=== PATIENT | male | born 1945 | race Caucasian/White ===

== ENCOUNTER 2022-07-11 11:45 | Outpatient (REF) | payer BC, SELFPAY ==
[2022-07-11 12:13] LABS: MANUAL DIFF FLAG NO
[2022-07-11 12:54] LABS: Basophils Percent Auto 0.5 % (0-2); Eosinophils Absolute Auto 0.1 X10*3/uL (0.0-0.4); Eosinophils Percent Auto 0.8 % (0-4); Hematocrit 41.7 % (42.0-52.0); Hemoglobin 13.7 g/dl (14.0-18.0); Imm Gran Abs Auto 0.01 X10*3/uL (0.00-0.03); Imm Gran Pct Auto 0.2 % (0.0-0.4); Lymphocytes Absolute Auto 1.1 X10*3/uL (1.2-4.9); Lymphocytes Percent Auto 18.7 % (20-40); Mean Corpuscular HGB Conc 32.9 g/dl (31.0-36.0); Mean Corpuscular Hemoglobin 33.3 pg (27.0-33.0); Mean Corpuscular Volume 101.5 fL (80.0-98.0); Mean Platelet Volume 10.4 fL (9.4-12.4); Monocytes Absolute Auto 0.4 X10*3/uL (0.1-1.2); Monocytes Percent Auto 6.7 % (2-11); Neutrophils Absolute Auto 4.4 x10*3/uL (2.0-8.3); Neutrophils Percent Auto 73.1 % (45-73); Platelet Count 150 X10*3/uL (160-400); Red Blood Count 4.11 X10*6/uL (4.60-5.80); Red Cell Distribution Width 12.5 % (11.0-16.0)
[2022-07-11 13:16] LABS: Alanine Aminotransferase 20 U/L (0-40); Albumin Level 4.9 g/dL (3.5-5.0); Alkaline Phosphatase 95 U/L (39-117); Anion Gap 16 (12-20); Aspartate Amino Transferase 23 U/L (5-37); Bilirubin Total 1.1 mg/dL (0.0-1.0); Blood Urea Nitrogen 18 mg/dL (9-16); C Reactive Protein 0.12 mg/dL (< or = 0.50); Calcium 9.6 mg/dL (8.4-10.2); Carbon Dioxide 26 mmol/L (22-29); Chloride 104 mmol/L (96-108); Estimated Glomerular Filt Rate 52; Glucose Random 100 mg/dL (60-115); Potassium 4.2 mmol/L (3.3-5.1); Rheumatoid Factor < 15.0 IU/mL (<15.0); Sodium 142 mmol/L (135-145); Total Protein 7.7 g/dL (6.5-8.0)
[2022-07-11 14:23] LABS: Erythrocyte Sedimentation Rate 16 MM/HR (0-15)
[2022-07-12 07:08] LABS: HBS Num1 0.34 mIU/mL (0-7.99); HBsAGNum1 0.25 S/CO (0.00-0.99); Hepatitis A Antibody IgM 0.27 Index (0-0.79); Hepatitis B Core Antibody Nonreactive (Nonreactive); Hepatitis B Surface Antigen Negative (Negative); ~HepC Num1 0.25 S/CO (0.00-0.79); ~Hepatitis A Antibody IgM Nonreactive (Nonreactive); ~Hepatitis B Surface Antibody NONREACTIVE (Nonreactive); ~Hepatitis C Antibody Nonreactive (Nonreactive)
[2022-07-12 11:52] LABS: Complement C3 124 mg/dL (82-185)
[2022-07-15 13:53] LABS: Vitamin D 25-OH, D2 <4 ng/mL; Vitamin D 25-OH, D3 30 ng/mL; Vitamin D 25-OH, Total 30 ng/mL (30-100)
[2022-07-15 14:06] LABS: Anti Nuclear Antibody Screen NEGATIVE (NEGATIVE)
[2022-07-15 15:56] LABS: Cyclic Citrullinated Peptide <16 UNITS
[2022-07-15 23:41] LABS: TS Negative Control Passed; TS Panel A 1; TS Panel B 0; TS Positive Control Passed; TSpotTB Negative (Negative)
[2022-07-24 11:56] LABS: Cryoglobulin, Qual NONE DETECTED ((NDT))
== END 2022-07-11 11:46 | disposition home or self-care (01) ==
LOC: HO.10HDL 11:45
PROVIDERS: Visit Provider Student in an Organized Health Care Education/Training Program
DX: Z13.21 Encounter for screening for nutritional disorder (principal); Z11.59 Encounter for screening for other viral diseases; Z11.7 Encounter for testing for latent tuberculosis infection; M06.041 Rheumatoid arthritis without rheumatoid factor, right hand; M06.042 Rheumatoid arthritis without rheumatoid factor, left hand
CPT/HCPCS: 36415; 80053; 82306; 82595; 85025; 85652; 86038; 86039; 86140; 86160; 86200; 86431; 86481; 86704; 86706; 86709; 86803; 87340

== ENCOUNTER 2022-08-16 14:12 | Outpatient (REF) | payer MEDICARE, SELFPAY ==
[2022-08-16 14:24] LABS: MANUAL DIFF FLAG NO
[2022-08-16 14:44] LABS: Basophils Percent Auto 0.2 % (0-2); Eosinophils Percent Auto 0.4 % (0-4); Hematocrit 40.4 % (42.0-52.0); Hemoglobin 13.3 g/dl (14.0-18.0); Imm Gran Abs Auto 0.03 X10*3/uL (0.00-0.03); Imm Gran Pct Auto 0.4 % (0.0-0.4); Lymphocytes Absolute Auto 1.4 X10*3/uL (1.2-4.9); Lymphocytes Percent Auto 16.9 % (20-40); Mean Corpuscular HGB Conc 32.9 g/dl (31.0-36.0); Mean Corpuscular Hemoglobin 32.8 pg (27.0-33.0); Mean Corpuscular Volume 99.5 fL (80.0-98.0); Mean Platelet Volume 10.8 fL (9.4-12.4); Monocytes Absolute Auto 0.9 X10*3/uL (0.1-1.2); Monocytes Percent Auto 10.8 % (2-11); Neutrophils Percent Auto 71.3 % (45-73); Platelet Count 145 X10*3/uL (160-400); Red Blood Count 4.06 X10*6/uL (4.60-5.80); Red Cell Distribution Width 12.3 % (11.0-16.0); White Blood Count 8.3 X10*3/uL (4.8-10.8)
[2022-08-16 15:15] LABS: Alanine Aminotransferase 11 U/L (0-40); Albumin Level 4.5 g/dL (3.5-5.0); Alkaline Phosphatase 91 U/L (39-117); Anion Gap 16 (12-20); Aspartate Amino Transferase 16 U/L (5-37); Bilirubin Total 0.9 mg/dL (0.0-1.0); Blood Urea Nitrogen 22 mg/dL (9-16); C Reactive Protein 1.86 mg/dL (< or = 0.50); Calcium 9.4 mg/dL (8.4-10.2); Carbon Dioxide 26 mmol/L (22-29); Chloride 105 mmol/L (96-108); Estimated Glomerular Filt Rate 48; Glucose Random 103 mg/dL (60-115); Potassium 3.9 mmol/L (3.3-5.1); Sodium 143 mmol/L (135-145)
[2022-08-16 15:29] LABS: Uric Acid 5.8 mg/dL (3.4-7.0)
[2022-08-16 16:42] LABS: Erythrocyte Sedimentation Rate 23 MM/HR (0-15)
== END 2022-08-16 14:13 | disposition home or self-care (01) ==
LOC: HO.LAB 14:12
PROVIDERS: PCP Physician Assistant Medical; Visit Provider Student in an Organized Health Care Education/Training Program
DX: M10.9 Gout, unspecified (principal); M25.432 Effusion, left wrist
CPT/HCPCS: 20605; 36415; 80053; 84550; 85025; 85652; 86140; 99212

== ENCOUNTER → 2022-09-05 09:40 | Outpatient (BNVA) | payer MEDICARE, SELFPAY | PROVIDERS: PCP Physician Assistant Medical; Referring Provider Physician Assistant Medical; Visit Provider Student in an Organized Health Care Education/Training Program | DX: Z13.820 Encounter for screening for osteoporosis (principal); M67.921 Unspecified disorder of synovium and tendon, right upper arm; M06.041 Rheumatoid arthritis without rheumatoid factor, right hand; M06.042 Rheumatoid arthritis without rheumatoid factor, left hand; M19.041 Primary osteoarthritis, right hand; M19.042 Primary osteoarthritis, left hand; M10.9 Gout, unspecified; G20 Parkinson's disease; Z79.899 Other long term (current) drug therapy | CPT/HCPCS: 99212 ==

== ENCOUNTER 2022-10-10 13:00 | Outpatient (REF) | payer MEDICARE, SELFPAY ==
--- NOTE | ~2022-10-10 | MM_ITS ---
EXAMINATION: BONE DENSITOMETRY CLINICAL INDICATION: Screening for osteoporosis. COMPARISON: This is the patient's baseline examination. TECHNIQUE: Using a [employer] DXA System (software version: 13.1) manufactured by [employer], dual-energy x-ray absorptiometry was performed of the lumbar spine and left hip. The images are of good technical quality. Summary results are attached. FINDINGS: AP SPINE L1-L2 (excluding L3 and L4): The data of L1-L4 has been changed to exclude the L3 and L4 vertebral bodies, because degenerative sclerosis at these levels may cause overestimation of lumbar spine density. BMD 1.152 g/cm2, Z-score 0.5, T-score -0.4, normal. LEFT FEMUR, NECK: BMD 0.729 g/cm2, Z-score -1.0, T-score -2.6, osteoporosis. LEFT FEMUR, TOTAL: BMD 0.667 g/cm2, Z-score -1.8, T-score -3.0, osteoporosis. IDENTIFIED RISK FACTORS: Height loss, history of fracture (adult), glucocorticoids (chronic), osteoporosis, recurrent falls, rheumatoid arthritis. HISTORY OF FRACTURE: Wrist. MEDICATIONS: None listed. MM/XR DEXA axial skeleton IMPRESSION: 1. DIAGNOSIS: Severe osteoporosis based on the lowest T-score value of -3.0 in the total femur and history of wrist fracture applying World Health Organization criteria. 2. 10-YEAR FRACTURE RISK PREDICTION, FRAX: According to the guidelines, FRAX calculation should only be performed on patients in the osteopenia bone density category. Therefore, FRAX was not performed on this patient. 3. Treatment Recommendations: NOF guidelines recommend consideration for treatment in postmenopausal women and men age 50 and older presenting with the following: -A hip or vertebral (clinical or morphometric) fracture. -T-score less than or equal to -2.5 at the femoral neck or spine after appropriate evaluation to exclude secondary causes. -Low bone mass at the hip or spine and a 10-year fracture probability by FRAX of greater than or equal to 3% for hip fracture or greater than or equal to 20% for major osteoporotic fracture based on the [place] adapted WHO algorithm. 4. Other Recommendations: All treatment decisions require clinical judgment and consideration of individual patient factors, including patient preferences, comorbidities, previous drug use, risk factors not captured in the FRAX model (e.g. frailty, falls, vitamin D deficiency, increased bone turnover, interval significant decline in bone density) and possible under or overestimation of fracture risk by FRAX. Additional medical evaluation for secondary cause of low bone mineral density may be appropriate. FUTURE SCAN RECOMMENDATION: People with diagnosed cases of osteoporosis or at high risk for fracture should have regular bone mineral density tests. For patients eligible for Medicare, routine testing is allowed once every 2 years. The testing frequency can be increased to one year for patients who have rapidly progressing disease, those who are receiving or discontinuing medical therapy to restore bone mass, or have additional risk factors.
--- NOTE | ~2022-10-10 | US_ITS ---
EXAMINATION: ULTRASOUND EXTREMITY NONVASCULAR CLINICAL INFORMATION: Evaluate biceps tear COMPARISON: None TECHNIQUE: Grayscale and color imaging of the right upper arm in the area of palpable abnormality FINDINGS: There is a complex cystic partially solid partially cystic lesion with minimal peripheral vascularity seen in the upper arm. This measures 3.2 x 0.9 x 1.2 cm. This probably represents biceps tear with retraction. Differential would include hematoma, abscess or myositis, and less likely a neoplastic process. Follow-up MRI recommended. US/US extremity nonvascular IMPRESSION: 3.2 x 0.9 x 1.2 cm complex cystic mass probably representing biceps tear. Confirmation with MRI recommended. Findings will be communicated by the [place] work flow coke handling supervisor.
== END 2022-10-10 13:01 | disposition home or self-care (01) ==
LOC: HO.US 13:00
PROVIDERS: Visit Provider Student in an Organized Health Care Education/Training Program
DX: Z13.820 Encounter for screening for osteoporosis (principal); M67.921 Unspecified disorder of synovium and tendon, right upper arm; M81.0 Age-related osteoporosis without current pathological fracture
CPT/HCPCS: 76882; 77080

== ENCOUNTER 2022-11-22 08:42 | Outpatient (REF) | payer MEDICARE, SELFPAY ==
[2022-11-22 09:09] LABS: MANUAL DIFF FLAG NO
[2022-11-22 09:27] LABS: Basophils Percent Auto 0.5 % (0-2); Eosinophils Absolute Auto 0.1 X10*3/uL (0.0-0.4); Eosinophils Percent Auto 1.2 % (0-4); Hematocrit 38.6 % (42.0-52.0); Hemoglobin 12.4 g/dl (14.0-18.0); Imm Gran Abs Auto 0.01 X10*3/uL (0.00-0.03); Imm Gran Pct Auto 0.2 % (0.0-0.4); Lymphocytes Percent Auto 25.3 % (20-40); Mean Corpuscular HGB Conc 32.1 g/dl (31.0-36.0); Mean Corpuscular Hemoglobin 32.4 pg (27.0-33.0); Mean Corpuscular Volume 100.8 fL (80.0-98.0); Mean Platelet Volume 10.3 fL (9.4-12.4); Monocytes Absolute Auto 0.3 X10*3/uL (0.1-1.2); Monocytes Percent Auto 7.6 % (2-11); Neutrophils Absolute Auto 2.7 x10*3/uL (2.0-8.3); Neutrophils Percent Auto 65.2 % (45-73); Platelet Count 128 X10*3/uL (160-400); Red Blood Count 3.83 X10*6/uL (4.60-5.80); Red Cell Distribution Width 13.4 % (11.0-16.0); White Blood Count 4.1 X10*3/uL (4.8-10.8)
[2022-11-22 10:01] LABS: Alanine Aminotransferase 15 U/L (0-40); Albumin Level 4.1 g/dL (3.5-5.0); Alkaline Phosphatase 83 U/L (39-117); Anion Gap 15 (12-20); Aspartate Amino Transferase 20 U/L (5-37); Bilirubin Total 1.3 mg/dL (0.0-1.0); Blood Urea Nitrogen 19 mg/dL (9-16); C Reactive Protein 0.13 mg/dL (< or = 0.50); Calcium 9.2 mg/dL (8.4-10.2); Carbon Dioxide 27 mmol/L (22-29); Chloride 106 mmol/L (96-108); Estimated Glomerular Filt Rate 46; Glucose Random 99 mg/dL (60-115); Potassium 4.1 mmol/L (3.3-5.1); Sodium 144 mmol/L (135-145); Total Protein 6.2 g/dL (6.5-8.0); Uric Acid 5.7 mg/dL (3.4-7.0)
[2022-11-22 10:06] LABS: Erythrocyte Sedimentation Rate 14 MM/HR (0-15)
[2022-11-26 13:44] LABS: Procollagen Type I Intact N 49 mcg/L (see note)
== END 2022-11-22 08:43 | disposition home or self-care (01) ==
LOC: HO.LAB 08:42
PROVIDERS: PCP Physician Assistant Medical; Visit Provider Student in an Organized Health Care Education/Training Program
DX: M10.9 Gout, unspecified (principal)
CPT/HCPCS: 36415; 80053; 83519; 84550; 85025; 85652; 86140

== ENCOUNTER → 2022-11-29 09:43 | Outpatient (BNVA) | payer MEDICARE, SELFPAY | PROVIDERS: PCP Physician Assistant Medical; Visit Provider Student in an Organized Health Care Education/Training Program | DX: G20 Parkinson's disease (principal); M06.00 Rheumatoid arthritis without rheumatoid factor, unspecified site; M06.041 Rheumatoid arthritis without rheumatoid factor, right hand; M19.041 Primary osteoarthritis, right hand; M06.042 Rheumatoid arthritis without rheumatoid factor, left hand; M19.042 Primary osteoarthritis, left hand; M67.921 Unspecified disorder of synovium and tendon, right upper arm; M81.0 Age-related osteoporosis without current pathological fracture; M1A.0320 Idiopathic chronic gout, left wrist, without tophus (tophi); N18.9 Chronic kidney disease, unspecified; Z79.899 Other long term (current) drug therapy | CPT/HCPCS: 99212 ==

== ENCOUNTER 2023-02-27 08:33 | Outpatient (REF) | payer MEDICARE, SELFPAY ==
[2023-02-27 08:59] LABS: MANUAL DIFF FLAG NO
[2023-02-27 09:24] LABS: Basophils Percent Auto 0.5 % (0-2); Eosinophils Absolute Auto 0.1 X10*3/uL (0.0-0.4); Hematocrit 35.3 % (42.0-52.0); Hemoglobin 11.5 g/dl (14.0-18.0); Imm Gran Abs Auto 0.01 X10*3/uL (0.00-0.03); Imm Gran Pct Auto 0.2 % (0.0-0.4); Lymphocytes Absolute Auto 1.1 X10*3/uL (1.2-4.9); Lymphocytes Percent Auto 27.1 % (20-40); Mean Corpuscular HGB Conc 32.6 g/dl (31.0-36.0); Mean Corpuscular Hemoglobin 34.4 pg (27.0-33.0); Mean Corpuscular Volume 105.7 fL (80.0-98.0); Mean Platelet Volume 11.2 fL (9.4-12.4); Monocytes Absolute Auto 0.4 X10*3/uL (0.1-1.2); Monocytes Percent Auto 8.9 % (2-11); Neutrophils Absolute Auto 2.5 x10*3/uL (2.0-8.3); Neutrophils Percent Auto 61.3 % (45-73); Platelet Count 123 X10*3/uL (160-400); Red Blood Count 3.34 X10*6/uL (4.60-5.80); Red Cell Distribution Width 14.8 % (11.0-16.0); White Blood Count 4.1 X10*3/uL (4.8-10.8)
[2023-02-27 10:23] LABS: Alanine Aminotransferase 42 U/L (0-40); Albumin Level 4.2 g/dL (3.5-5.0); Alkaline Phosphatase 75 U/L (39-117); Anion Gap 10 (12-20); Aspartate Amino Transferase 38 U/L (5-37); Bilirubin Total 1.5 mg/dL (0.0-1.0); Blood Urea Nitrogen 18 mg/dL (9-16); C Reactive Protein 0.16 mg/dL (< or = 0.50); Calcium 9.1 mg/dL (8.4-10.2); Carbon Dioxide 27 mmol/L (22-29); Chloride 109 mmol/L (96-108); Estimated Glomerular Filt Rate 51; Glucose Random 101 mg/dL (60-115); Potassium 4.2 mmol/L (3.3-5.1); Sodium 142 mmol/L (135-145); Total Protein 6.3 g/dL (6.5-8.0); Uric Acid 6.2 mg/dL (3.4-7.0)
[2023-02-27 10:29] LABS: Erythrocyte Sedimentation Rate 16 MM/HR (0-15)
== END 2023-02-27 08:34 | disposition home or self-care (01) ==
LOC: HO.LAB 08:33
PROVIDERS: PCP Physician Assistant Medical; Visit Provider Student in an Organized Health Care Education/Training Program
DX: M10.9 Gout, unspecified (principal); Z79.899 Other long term (current) drug therapy
CPT/HCPCS: 36415; 80053; 84550; 85025; 85652; 86140

== ENCOUNTER → 2023-03-05 11:15 | Outpatient (BNVA) | payer MEDICARE, SELFPAY | PROVIDERS: PCP Physician Assistant Medical; Visit Provider Student in an Organized Health Care Education/Training Program | DX: M06.041 Rheumatoid arthritis without rheumatoid factor, right hand (principal); M06.042 Rheumatoid arthritis without rheumatoid factor, left hand; M67.921 Unspecified disorder of synovium and tendon, right upper arm; M81.0 Age-related osteoporosis without current pathological fracture; M10.9 Gout, unspecified; Z79.899 Other long term (current) drug therapy | CPT/HCPCS: 99212 ==

== ENCOUNTER 2023-06-09 09:08 | Outpatient (REF) | payer MEDICARE, SELFPAY ==
[2023-06-09 09:30] LABS: MANUAL DIFF FLAG NO
[2023-06-09 09:58] LABS: Basophils Percent Auto 0.5 % (0-2); Eosinophils Absolute Auto 0.1 X10*3/uL (0.0-0.4); Eosinophils Percent Auto 1.6 % (0-4); Hematocrit 37.3 % (42.0-52.0); Hemoglobin 12.4 g/dl (14.0-18.0); Imm Gran Abs Auto 0.02 X10*3/uL (0.00-0.03); Imm Gran Pct Auto 0.4 % (0.0-0.4); Lymphocytes Absolute Auto 1.1 X10*3/uL (1.2-4.9); Mean Corpuscular HGB Conc 33.2 g/dl (31.0-36.0); Mean Corpuscular Hemoglobin 33.6 pg (27.0-33.0); Mean Corpuscular Volume 101.1 fL (80.0-98.0); Mean Platelet Volume 10.2 fL (9.4-12.4); Monocytes Absolute Auto 0.5 X10*3/uL (0.1-1.2); Monocytes Percent Auto 9.2 % (2-11); Neutrophils Absolute Auto 3.9 x10*3/uL (2.0-8.3); Neutrophils Percent Auto 68.3 % (45-73); Platelet Count 163 X10*3/uL (160-400); Red Blood Count 3.69 X10*6/uL (4.60-5.80); Red Cell Distribution Width 12.9 % (11.0-16.0); White Blood Count 5.7 X10*3/uL (4.8-10.8)
[2023-06-09 10:25] LABS: Alanine Aminotransferase 29 U/L (0-40); Albumin Level 4.1 g/dL (3.5-5.0); Alkaline Phosphatase 73 U/L (39-117); Anion Gap 11 (12-20); Aspartate Amino Transferase 25 U/L (5-37); Bilirubin Total 0.9 mg/dL (0.0-1.0); Blood Urea Nitrogen 19 mg/dL (9-16); C Reactive Protein 0.11 mg/dL (< or = 0.50); Calcium 9.3 mg/dL (8.4-10.2); Carbon Dioxide 27 mmol/L (22-29); Chloride 109 mmol/L (96-108); Estimated Glomerular Filt Rate 48; Glucose Random 99 mg/dL (60-115); Sodium 143 mmol/L (135-145); Total Protein 6.7 g/dL (6.5-8.0); Uric Acid 5.4 mg/dL (3.4-7.0)
[2023-06-09 10:45] LABS: Erythrocyte Sedimentation Rate 16 MM/HR (0-15)
[2023-06-11 13:13] LABS: Prot Elec - Alpha1 0.3 g/dL (0.2-0.3); Prot Elec - Alpha2 0.8 g/dL (0.5-0.9); Prot Elec - Beta 1 0.4 g/dL (0.4-0.6); Prot Elec - Beta 2 0.3 g/dL (0.2-0.5); Prot Elec - Gamma 0.7 g/dL (0.8-1.7); Prot Elec - Total Protein 6.5 g/dL (6.1-8.1)
[2023-06-12 11:48] LABS: IgA 182 mg/dL (70-320); IgG 903 mg/dL (600-1540); IgM 59 mg/dL (50-300)
== END 2023-06-09 09:09 | disposition home or self-care (01) ==
LOC: HO.LAB 09:08
PROVIDERS: PCP Physician Assistant Medical; Visit Provider Student in an Organized Health Care Education/Training Program
DX: M10.9 Gout, unspecified (principal); M06.041 Rheumatoid arthritis without rheumatoid factor, right hand; M06.042 Rheumatoid arthritis without rheumatoid factor, left hand; Z79.899 Other long term (current) drug therapy
CPT/HCPCS: 36415; 80053; 82784; 84165; 84550; 85025; 85652; 86140; 86334

== ENCOUNTER 2023-08-07 08:32 | Outpatient (REF) | payer MEDICARE, SELFPAY | END 2023-08-07 08:33 | disposition home or self-care (01) | LOC: HO.LAB 08:32 | PROVIDERS: PCP Physician Assistant Medical; Visit Provider Student in an Organized Health Care Education/Training Program | DX: M81.0 Age-related osteoporosis without current pathological fracture (principal) | CPT/HCPCS: 83519 ==

== ENCOUNTER 2023-08-12 09:38 | Outpatient (AMB) | payer MEDICARE, SELFPAY ==
[2023-08-12 09:53] VITALS: BP 142/76; PULSE 59; TEMP 36.5; O2SAT 98; BMI 22.3
--- NOTE | 2023-08-12 09:53 | MHC.OFFVIS ---
Intake Vital Signs 08/12/23 09:53 Height 5 ft 10 in Weight 155 lb 3.287 oz BMI 22.3 BP 142/76 H Blood Pressure Location Rt brachial Position Sitting Pulse 59 Pulse Source Pulse Oximeter Temp 97.7 F Temp Source Skin Pulse Oximetry (%) 98 Intake Visit Reasons: RA/OA Intake Note: Pt presents today for follow up and test results. Continues on mtx 5tabs weekly and folic acid 3mg. S/p right hand trigger finger release 05/28/23 [facility] Neurodiagnostic Technician Required: No Accompanied by: Self / Same As Patient Allergies sertraline Allergy (Intermediate, Verified 08/12/23 09:57) nausea,dizziness acetaminophen [From Percocet] Allergy (Unknown, Verified 08/12/23 09:57) unknown amoxicillin Allergy (Unknown, Verified 08/12/23 09:57) unknown erythromycin base Allergy (Unknown, Verified 08/12/23 09:57) unknown minocycline Allergy (Unknown, Verified 08/12/23 09:57) unknown oxycodone [From Percocet] Allergy (Unknown, Verified 08/12/23 09:57) unknown polymyxinb tmp Allergy (Intermediate, Uncoded 08/12/23 09:57) swelling, rash Medication List - Last Reconciled 08/12/23 by Analy Enamorado MD alendronate 70 mg PO QWEEK amlodipine 10 mg PO DAILY ammonium lactate 12% appl topical atorvastatin 20 mg PO DAILY bupropion HCl 100 mg PO BEDTIME bupropion HCl 200 mg PO DAILY carbidopa-levodopa 25-100 mg 1 tab PO .6 x a day diclofenac sodium 1% 4 grams topical QID doxycycline hyclate 100 mg PO BID entacapone 200 mg PO .6 x a day with carbi folic acid 3 mg (3 x 1 mg) PO DAILY lisinopril 40 mg PO DAILY lorazepam 0.5 mg PO BEDTIME PRN meloxicam 7.5 mg PO DAILY methotrexate sodium 12.5 mg (5 x 2.5 mg) PO QWEEK metronidazole 0.75% 1 appl topical DAILY mirtazapine 30 mg PO BEDTIME omeprazole 20 mg PO DAILY ropinirole 2 mg PO BID tamsulosin 0.4 mg PO BEDTIME trazodone 50 mg PO BEDTIME PRN HPI HPI Comments History of Present Illness Details 77-year-old male with RA returns for follow-up. On methotrexate 12.5 mg weekly and folic acid 3 mg daily. He states that he had trigger finger release surgery for left hand back in May 2023. Surgery was uneventful. States that his hand surgeon would like to do surgery for his left thumb OA but patient postponed it as his just got diagnosed with DVT. She has an appointment with Hematology. She is on Eliquis now. Patient states that continues to have pain in his hands. States that his left ankle is starting to turn in with walking. States that over the last few months he feels that when he walks he has to stop to catch his breath. Initial history: This is a 76-year-old male with a complex past medical history including rheumatoid arthritis RF negative, CCP is positive used to see Dr. Mishra who presents for evaluation of rheumatoid arthritis. The condition was diagnosed in 2017 and since then he has been on methotrexate 6 tabs weekly plus folic acid with better control of his RA symptoms. He has not been on methotrexate since November of 2021 as he could not get a prescription. He continues to have pain in both thumbs as well as his fingers. 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 He receives bilateral thumb intra-articular steroid injections every 3 months which gave him about 1 month relief, last injection was 2 months ago. He denies any other joint pain or swelling. About 2 years ago he developed right foot drop, also developed tremors and was diagnosed with Parkinson's by Neurology. For his footdrop he went to physical therapy and was prescribed a brace. The brace helps. But his footdrop has not improved. [facility] Medical History Footdrop BPH (benign prostatic hyperplasia) Hypertension Diverticulosis Thrombocytopenia Acid reflux Basal cell carcinoma Cholelithiasis Nephrolithiasis PTSD (post-traumatic stress disorder) Parkinsons Osteoarthritis of hands, bilateral Chronic sinus bradycardia Restless leg Seronegative rheumatoid arthritis Dyslipidemia Surgical History S/P trigger finger release Hx of endoscopy S/P TURP Hx of tonsillectomy Hx of lithotripsy Hx of colonoscopy Family History Mother Arthritis Social History Household Members: Spouse Housing: House Do you presently have visiting nurse or other home services: No Alcohol intake: never Patient Tobacco Use Status: Never used Tobacco e-Cigarette/Vaping Use: Never Used service: Yes Current occupational status: retired 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 Review of Systems Eyes Reports no additional complaints Card Reports dyspnea on exertion Resp Reports dyspnea on exertion Musc Reports arthralgias Physical Exam Vital Signs: Last Vital Signs Temp 97.7 F 08/12/23 09:53 Pulse 59 08/12/23 09:53 BP 142/76 H 08/12/23 09:53 Pulse Ox 98 08/12/23 09:53 BMI result Body Mass Index 22.3 Const General: cooperative, healthy appearing and comfortable Nutritional Appearance: average body habitus Orientation/consciousness: patient oriented x3 Limitations: ambulation with cane HEENT Head: Yes normocephalic and Yes atraumatic Mouth: Normal oral and palatal mucosa present Resp Effort & Inspection: normal respiratory effort and able to speak in complete sentences Auscultation: clear to auscultation bilaterally Cardio Heart sounds: Murmur heart sound present systolic Skin Other: Some areas of senile purpura Neuro Other: Right footdrop General: patient oriented x3 Extrem Other: Extensive osteoarthritic changes of both hands with bilateral squaring of CMC joint tender to palpation Extensive Heberden's and Carrie's nodes, tender to palpation Left ulnar styloid prominence and tenderness to palpation Right 2nd through 5th MCP joint tenderness Left 2nd and 3rd MCP tenderness Right 2nd and 3rd extensor tender tenderness Left 3rd extensor tender tenderness Right 2nd flexor tendon tenderness Bilateral fat atrophy at anatomical snuffbox Left 2nd through 5th MTP tenderness Right 3rd MTP tenderness Assessment & Plan Assessment & Plan (1) Rheumatoid arthritis involving both hands with negative rheumatoid factor: Comment: dx 2018 (low titer +CCP negative on repeat) Methotrexate started 2018 reduced from 15 to 12.5 mg 12/12 due to cytopenias & CKD Code(s): M06.041 - Rheumatoid arthritis without rheumatoid factor, right hand; M06.042 - Rheumatoid arthritis without rheumatoid factor, left hand Plan: 77-year-old male with rheumatoid arthritis, (RF negative, CCP low positive, -ve on repeat) who presents for follow-up. Patient continues to have multiple tender joints on methotrexate 12.5 mg weekly. Patient has a murmur on exam today. Will check a 2D echo. After 2D echo is completed, will discuss adding further DMARDs Continue methotrexate 12.5 mg weekly folic acid 3 mg daily Infectious screening hepatitis panel and T spot -ve 2021 Labs before next visit in 3 months (2) Methotrexate, intermediate, current use: Code(s): Z79.899 - Other superintendent container terminal (current) drug therapy Plan: Monitor safety labs (3) Biceps tendinopathy of right upper extremity: Code(s): M67.921 - Unspecified disorder of synovium and tendon, right upper arm Plan: Symptoms have resolved (4) Osteoporosis: Code(s): M81.0 - Age-related osteoporosis without current pathological fracture Qualifiers: Osteoporosis type: age-related Presence of current pathological fracture: without current pathological fracture Qualified Code(s): M81.0 - Age-related osteoporosis without current pathological fracture Plan: DEXA shows a T-score-3.0 total left femur. Patient has been getting intra-articular steroid injections for his hand osteoarthritis almost every 3 months for years. This might be a contributing factor. Continue alendronate 70 mg once weekly. Well tolerated. Repeat DEXA scan around 12/14 (5) Gout: Code(s): M10.9 - Gout, unspecified Qualifiers: Gout site: wrist Gout etiology: idiopathic Chronicity: chronic Laterality: unspecified laterality Presence of tophus: without tophus Qualified Code(s): M1A.0390 - Idiopathic chronic gout, unspecified wrist, without tophus (tophi) Plan: On 08/16/2022 patient presented with acute left wrist pain and swelling which rapidly responded to prednisone. ? He stated that 10 years ago he had similar pain affecting his right foot.? He also has history of urate kidney stones. I had attempted left wrist arthrocentesis, unfortunately it was a dry tap. Repeat uric acid level when not in a flare showed a normal uric acid level. This seems to be a pseudogout flare. Will continue to monitor patient clinically. If patient starts developing recurrent pseudogout flares. Will consider starting colchicine (6) Osteoarthritis of hands, bilateral: Code(s): M19.041 - Primary osteoarthritis, right hand; M19.042 - Primary osteoarthritis, left hand Qualifiers: Osteoarthritis type: primary Qualified Code(s): M19.041 - Primary osteoarthritis, right hand; M19.042 - Primary osteoarthritis, left hand Plan: Gets bilateral 1st CMC intra-articular steroid injections by Orthopedics every 3 months. (7) CKD (chronic kidney disease): Code(s): N18.9 - Chronic kidney disease, unspecified Qualifiers: Chronic kidney disease stage: stage 3 (moderate) Chronic kidney disease stage 3 subtype: stage 3b (GFR 30-44) Qualified Code(s): N18.32 - Chronic kidney disease, stage 3b Plan: Seems relatively stable. Follow-up with PCP (8) Immunization counseling: Code(s): Z71.85 - Encounter for immunization safety counseling Plan: Patient received TD and flu vaccines last week. Advised patient to hold methotrexate for 2 weeks. Advised patient to get the RSV, COVID booster and Pneumovax. Can all be done in the same day. Advised patient to hold methotrexate weeks after those vaccines (9) Murmur: Code(s): R01.1 - Cardiac murmur, unspecified Plan: Systolic murmur on exam. Patient states that for the last few months he has been short of breath with activity. Will check a 2D echo Plan I spent 46 minutes reviewing patient's chart, evaluating patient, ordering diagnostic workup, counseling patient and documenting in the chart Orders: Orders Comprehensive Met. Panel Today M06.041 - Rheumatoid arthritis without rheumatoid factor, right hand, M06.042 - Rheumatoid arthritis without rheumatoid factor, left hand C Reactive Protein Today M06.041 - Rheumatoid arthritis without rheumatoid factor, right hand, M06.042 - Rheumatoid arthritis without rheumatoid factor, left hand Erythrocyte Sedimentation Rate Today M06.041 - Rheumatoid arthritis without rheumatoid factor, right hand, M06.042 - Rheumatoid arthritis without rheumatoid factor, left hand Hepatitis A,B,C Profile Today Z11.59 - Encounter for screening for other viral diseases T Spot TB Today Z11.7 - Encounter for testing for latent tuberculosis infection CA echo transthoracic complete Today R01.1 - Cardiac murmur, unspecified Complete Blood Count Auto Diff Today M06.041 - Rheumatoid arthritis without rheumatoid factor, right hand, M06.042 - Rheumatoid arthritis without rheumatoid factor, left hand Coding Level of Care Code Est Pt Level 5 (00690) Diagnoses Rheumatoid arthritis involving both hands with negative rheumatoid factor M06.041; M06.042 Methotrexate, superintendent container terminal, current use Z79.899 Biceps tendinopathy of right upper extremity M67.921 Age-related osteoporosis without current pathological fracture M81.0 Osteoporosis type: age-related Presence of current pathological fracture: without current pathological fracture 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
== END 2023-08-12 10:28 | disposition home or self-care (01) ==
PROVIDERS: PCP Physician Assistant Medical; Visit Provider Student in an Organized Health Care Education/Training Program
DX: M06.041 Rheumatoid arthritis without rheumatoid factor, right hand (principal); M06.042 Rheumatoid arthritis without rheumatoid factor, left hand; Z79.899 Other long term (current) drug therapy; M67.921 Unspecified disorder of synovium and tendon, right upper arm; M81.0 Age-related osteoporosis without current pathological fracture; M1A.0390 Idiopathic chronic gout, unspecified wrist, without tophus (tophi); M19.041 Primary osteoarthritis, right hand; M19.042 Primary osteoarthritis, left hand; N18.32 Chronic kidney disease, stage 3b; Z71.85 Encounter for immunization safety counseling; R01.1 Cardiac murmur, unspecified
CPT/HCPCS: 99215

== ENCOUNTER → 2023-08-12 09:38 | Outpatient (BNVA) | payer MEDICARE, SELFPAY | PROVIDERS: PCP Physician Assistant Medical; Visit Provider Student in an Organized Health Care Education/Training Program | DX: M06.041 Rheumatoid arthritis without rheumatoid factor, right hand (principal); M06.042 Rheumatoid arthritis without rheumatoid factor, left hand; M81.0 Age-related osteoporosis without current pathological fracture; M67.921 Unspecified disorder of synovium and tendon, right upper arm; M1A.0390 Idiopathic chronic gout, unspecified wrist, without tophus (tophi); M19.041 Primary osteoarthritis, right hand; M19.042 Primary osteoarthritis, left hand; N18.32 Chronic kidney disease, stage 3b; R01.1 Cardiac murmur, unspecified; Z71.85 Encounter for immunization safety counseling; Z79.899 Other long term (current) drug therapy | CPT/HCPCS: 99212 ==

== ENCOUNTER 2023-08-12 10:44 | Outpatient (REF) | payer MEDICARE, SELFPAY ==
[2023-08-12 13:39] LABS: MANUAL DIFF FLAG NO
[2023-08-12 13:46] LABS: Basophils Percent Auto 0.4 % (0-2); Eosinophils Absolute Auto 0.1 X10*3/uL (0.0-0.4); Eosinophils Percent Auto 0.9 % (0-4); Hematocrit 38.9 % (42.0-52.0); Hemoglobin 12.8 g/dl (14.0-18.0); Imm Gran Abs Auto 0.01 X10*3/uL (0.00-0.03); Imm Gran Pct Auto 0.2 % (0.0-0.4); Lymphocytes Absolute Auto 1.1 X10*3/uL (1.2-4.9); Lymphocytes Percent Auto 20.9 % (20-40); Mean Corpuscular HGB Conc 32.9 g/dl (31.0-36.0); Mean Corpuscular Hemoglobin 33.7 pg (27.0-33.0); Mean Corpuscular Volume 102.4 fL (80.0-98.0); Mean Platelet Volume 10.7 fL (9.4-12.4); Monocytes Absolute Auto 0.5 X10*3/uL (0.1-1.2); Monocytes Percent Auto 8.5 % (2-11); Neutrophils Absolute Auto 3.7 x10*3/uL (2.0-8.3); Neutrophils Percent Auto 69.1 % (45-73); Platelet Count 155 X10*3/uL (160-400); Red Cell Distribution Width 12.9 % (11.0-16.0); White Blood Count 5.4 X10*3/uL (4.8-10.8)
[2023-08-12 14:09] LABS: Alanine Aminotransferase 18 U/L (0-40); Albumin Level 4.4 g/dL (3.5-5.0); Alkaline Phosphatase 83 U/L (39-117); Anion Gap 15 (12-20); Aspartate Amino Transferase 21 U/L (5-37); Bilirubin Total 0.9 mg/dL (0.0-1.0); Blood Urea Nitrogen 17 mg/dL (9-16); C Reactive Protein < 0.10 mg/dL (< or = 0.50); Calcium 9.7 mg/dL (8.4-10.2); Carbon Dioxide 26 mmol/L (22-29); Chloride 106 mmol/L (96-108); Estimated Glomerular Filt Rate 55; Glucose Random 95 mg/dL (60-115); Potassium 4.3 mmol/L (3.3-5.1); Sodium 143 mmol/L (135-145); Total Protein 7.2 g/dL (6.5-8.0)
[2023-08-12 14:43] LABS: Erythrocyte Sedimentation Rate 16 MM/HR (0-15)
[2023-08-13 10:10] LABS: HBS Num1 0.03 mIU/mL (0-7.99); HBc Num1 0.12 S/CO (0.00-0.79); HBsAGNum1 0.31 S/CO (0.00-0.99); Hepatitis A Antibody IgM 0.17 Index (0-0.79); Hepatitis B Core Antibody Nonreactive (Nonreactive); Hepatitis B Surface Antigen Negative (Negative); ~HepC Num1 0.15 S/CO (0.00-0.79); ~Hepatitis A Antibody IgM Nonreactive (Nonreactive); ~Hepatitis B Surface Antibody NONREACTIVE (Nonreactive); ~Hepatitis C Antibody Nonreactive (Nonreactive)
[2023-08-14 21:19] LABS: TS Negative Control Passed; TS Panel A 0; TS Panel B 0; TS Positive Control Passed; TSpotTB Negative (Negative)
== END 2023-08-12 10:45 | disposition home or self-care (01) ==
LOC: HO.10HDL 10:44
PROVIDERS: Visit Provider Student in an Organized Health Care Education/Training Program
DX: M06.041 Rheumatoid arthritis without rheumatoid factor, right hand (principal); M06.042 Rheumatoid arthritis without rheumatoid factor, left hand; Z11.59 Encounter for screening for other viral diseases; Z72.89 Other problems related to lifestyle; Z11.7 Encounter for testing for latent tuberculosis infection
CPT/HCPCS: 36415; 80053; 85025; 85652; 86140; 86481; 86704; 86706; 86709; 86803; 87340

== ENCOUNTER → 2023-09-05 07:34 | Outpatient (REF) | payer MEDICARE, SELFPAY ==
--- NOTE | 2023-09-05 07:38 | CA_ITS ---
Transthoracic Echocardiogram Patient (Last, First, Middle): Caleb Martínez, Gender: Male Date of : 1945 Age: 77 Procedure Date: 09/05/2023 Procedure Type: Transthoracic Echocardiogram Location: OP Height: 177.8 cm Weight: 68.04 kg BSA: 1.85 m2 Heart Rate: 54 bpm BP: 136 / 70 mmHg Medical Office Assistant: THONY/JOSEPH Referring MD: Analy Enamorado MD Symptoms: R01.1 - Cardiac murmur, unspecified Study Quality: Adequate ECG Rhythm: Bradycardia Conclusions: - The left ventricular systolic function is mildly decreased. The calculated ejection fraction is 52% by biplane method. - There is moderate calcification of the aortic valve. There is mild aortic valve stenosis. - There is mild mitral valve regurgitation. - There is mild tricuspid valve regurgitation. Findings Left Ventricle Mildly increased left ventricular cavity size. The left ventricular systolic function is mildly decreased. The calculated ejection fraction is 52% by biplane method. There is no evidence of regional wall motion abnormalities. Diastolic function is normal for age. There is mild septal asymmetric hypertrophy. LV peak GLS -17.9%. Right Ventricle Mildly increased right ventricular cavity size. There is normal right ventricular systolic function. Atria The left atrium is normal in size. The right atrium is mildly dilated. Aortic Valve There is moderate calcification of the aortic valve. There is mild aortic valve stenosis. There is no aortic valve regurgitation. Mitral Valve The mitral valve appears normal. There is mild mitral valve regurgitation. There is no mitral valve stenosis. Pulmonic Valve The pulmonic valve is likely normal. Tricuspid Valve Normal tricuspid valve structure. There is mild tricuspid valve regurgitation. There is no evidence of pulmonary hypertension. Great Vessels The aortic annulus and asc aorta are normal in size. Venous The inferior vena cava was not well visualized. Pericardium/Pleural There is no evidence of pericardial effusion. Prior Study Comparison No prior study available for comparison. Measurements 2D Linear Measurements IVSd: 1.03 0.6-0.9/0.6-1.0 cm LVIDd: 5.57 3.9-5.3/4.2-5.9 cm LVIDd Index: 3.01 2.4-3.2/2.2-3.1 cm/m2 LVIDs: 4.23 2.0-3.6 cm LVPWd: 0.85 0.7-1.1 cm LA Diam: 3.80 2.7-3.8/3.0-4.0 cm LAIDs Index: 2.05 1.5-2.3 cm/m2 LV Mass: 249.62 67-162/88-224 g LV Mass Index: 134.93 43-95/49-115 g/m2 LVOT Diam: 2.40 3.0+(-)1.3 cm 2D Systolic Function EF 4C: 52.60 >55% EF 2C: 49.80 >55% EF BiP: 51.80 >55% Mitral Valve MV Pk E: 0.73 MV PK A: 0.71 MV Decel Time: 264.00 E/A: 1.00 E'Lateral: 6.20 E'Medial: 5.39 E/E' Med: 13.50 E/E' Lat: 11.70 PHT: 78.00 MVA PHT: 2.82 Decel [place]: 2.76 Aortic Valve AoV Pk Jcarlos: 2.38 AoV Mn Jcarlos: 1.59 AoV VTI: 0.56 AoV Pk Grad: 23.00 Aov Mn Grad: 12.00 INDIRA Cont.VTI: 1.83 LVOT LVOT Pk Jcarlos: 0.83 LVOT Mn Jcarlos: 0.62 LVOT VTI: 0.23 LVOT Pk Grad: 3.00 LVOT Mn Grad: 2.00 LVOT Diam: 2.40 LVOT Area: 4.52 Diastolic Function MV Pk E: 0.73 MV Pk A: 0.71 E/A: 1.00 E'Medial: 5.39 E/E' Med: 13.50 E' Laterial: 6.20 E/E' Lat: 11.70 Right Ventricle TAPSE (mm): 24.80 TVS' Jcarlos: 11.70 Tricuspid Valve TR Pk Jcarlos: 2.63 TR Pk Grad: 28.00 Great Vessels Aorta Sinus of Valsalva: 3.30 2.0-3.5 cm Ao Asc: 3.70 2.1-3.4 cm Pulmonary Veins Pulm Vein S/D 1.10 Pulmonary Valve PV Pk Jcarlos: 0.80 Peak PV Grad: 3.00 Updated in Other Vendor System with Status of Final Dioni Jacobson MD electronically signed on 09/06/2023 1:03:05 PM with status of Final
== END ==
LOC: HO.CARD 07:34
PROVIDERS: PCP Physician Assistant Medical; Visit Provider Student in an Organized Health Care Education/Training Program
DX: R01.1 Cardiac murmur, unspecified (principal)
CPT/HCPCS: 93306; 93356

== ENCOUNTER → 2023-09-05 07:38 | Outpatient (BNV) | payer MEDICARE, SELFPAY | PROVIDERS: PCP Physician Assistant Medical; Visit Provider Internal Medicine | DX: I35.0 Nonrheumatic aortic (valve) stenosis (principal) | CPT/HCPCS: 93306 ==

== ENCOUNTER 2023-10-01 08:02 | Outpatient (AMB) | payer MEDICARE, SELFPAY ==
--- NOTE | 2023-10-01 08:27 | A.OFFVIS_ITS ---
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/sob/yamilex/abn echo Intake Note: NPV w/ EKG Clinical Nursing Instructor Required: No Accompanied by: Self / Same As Patient Allergies sertraline Allergy (Intermediate, Verified 10/01/23 08:29) nausea,dizziness acetaminophen [From Percocet] Allergy (Unknown, Verified 10/01/23 08:29) unknown amoxicillin Allergy (Unknown, Verified 10/01/23 08:29) unknown erythromycin base Allergy (Unknown, Verified 10/01/23 08:29) unknown minocycline Allergy (Unknown, Verified 10/01/23 08:29) unknown oxycodone [From Percocet] Allergy (Unknown, Verified 10/01/23 08:29) unknown polymyxinb tmp Allergy (Intermediate, Uncoded 10/01/23 08:29) swelling, rash Medication List - Last Reconciled 10/01/23 by Dioni Jacobson MD alendronate 70 mg PO QWEEK amlodipine 10 mg PO DAILY ammonium lactate 12% appl topical atorvastatin 20 mg PO DAILY bupropion HCl 100 mg PO BEDTIME bupropion HCl 200 mg PO DAILY carbidopa-levodopa 25-100 mg 1 tab PO .6 x a day diclofenac sodium 1% 4 grams topical QID doxycycline hyclate 100 mg PO BID entacapone 200 mg PO .6 x a day with carbi folic acid 3 mg (3 x 1 mg) PO DAILY lisinopril 40 mg PO DAILY lorazepam 0.5 mg PO BEDTIME PRN meloxicam 7.5 mg PO DAILY methotrexate sodium 12.5 mg (5 x 2.5 mg) PO QWEEK metronidazole 0.75% 1 appl topical DAILY mirtazapine 30 mg PO BEDTIME omeprazole 20 mg PO DAILY prednisone 10 mg PO DAILY ropinirole 2 mg PO BID tamsulosin 0.4 mg PO BEDTIME trazodone 50 mg PO BEDTIME PRN HPI HPI Comments History of Present Illness Details Caleb is here for consultation regarding an abnormal echocardiogram. That had showed mildly diminished LVEF at 52%. Mild aortic stenosis and mild mitral/tricuspid regurgitation. It seems that he has seen [facility] many years ago but nothing recently. He does not remember the reasons why. Otherwise, he does not get any chest pains but does get short of breath with activity. He is having lot of tremors and he states it is because of Parkinson's. No known coronary disease myocardial infarction known to him. [facility] Medical History (Updated 10/01/23 @ 09:26 by Dioni Jacobson MD) Footdrop BPH (benign prostatic hyperplasia) Hypertension Diverticulosis Thrombocytopenia Acid reflux Basal cell carcinoma Cholelithiasis Nephrolithiasis PTSD (post-traumatic stress disorder) Parkinsons Osteoarthritis of hands, bilateral Chronic sinus bradycardia Restless leg Seronegative rheumatoid arthritis Dyslipidemia Surgical History S/P trigger finger release Hx of endoscopy S/P TURP Hx of tonsillectomy Hx of lithotripsy Hx of colonoscopy Family History Mother Arthritis Social History Household Members: Spouse Housing: House Do you presently have visiting nurse or other home services: No Alcohol intake: never Patient Tobacco Use Status: Never used Tobacco e-Cigarette/Vaping Use: Never Used service: Yes Current occupational status: retired 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 Review of Systems Const Denies chills, Denies daytime sleepiness, Denies fatigue, Denies fever(s), Denies frequent falls, Denies night sweats, Denies snoring, Denies weakness, Denies weight gain and Denies weight loss Eyes Denies loss of vision ENT Denies dizziness and Denies hearing loss Card Denies chest pain with activity, Denies syncope, Denies rapid heart rate, Denies edema, Denies claudication, Denies leg edema, Denies lightheadedness, Denies palpitations, Denies dyspnea, Denies dyspnea on exertion and Denies orthopnea Resp Denies cough, Denies excessive phlegm production, Denies dyspnea, Denies dyspnea on exertion, Denies snoring and Denies wheezing GI Denies abdominal pain, Denies hematochezia, Denies change in bowel habits, Denies change in stool character, Denies heartburn, Denies nausea and Denies vomiting Denies hematuria, Denies dysuria and Denies urinary frequency Musc Denies arthralgias, Denies muscle weakness, Denies numbness and Denies tingling Skin/Breast Denies nail changes and Denies rash Neuro Denies Abnormal speech present, Denies dizziness, Denies syncope, Denies frequent falls, Denies loss of vision, Denies memory loss, Denies numbness, Denies tingling and Denies weakness Psych Denies depression and Denies memory loss Endo Denies fatigue and Denies palpitations Aller/Immun Denies wheezing Physical Exam Vital Signs: Last Vital Signs Pulse 59 10/01/23 08:31 BP 106/60 10/01/23 08:31 BMI result Body Mass Index 23.8 Const General: comfortable and no acute distress Orientation/consciousness: patient oriented x3 HEENT Other: Unremarkable Head: Yes normal to inspection Neck Neck: Yes normal visual inspection Chest Chest palpation & inspection: normal inspection of the chest Resp Auscultation: clear to auscultation bilaterally Cardio Palpation: normal PMI Heart sounds: S1 normal heart sound present, S2 normal heart sound present, no gallops, Murmur heart sound present systolic II/ and at the right sternal border and no rubs GI Palpation (GI): Soft to palpation Back/Spine/Pelvis Other: unremarkable Skin General skin exam: no rashes or lesions noted Neuro General: patient oriented x3 Speech: No Abnormal speech present Extrem General: Yes normal to inspection Psych Mental Status: mental status grossly normal Office Procedures EKG Details: EKG with sinus bradycardia 59/Min; cannot exclude old septal infarct; normal [place] and corrected QT. Some artifact in the tracing. [id number], Complete Assessment & Plan Assessment & Plan (1) Cardiomyopathy: Code(s): I42.9 - Cardiomyopathy, unspecified (2) Valvular heart disease: Code(s): I38 - Endocarditis, valve unspecified Plan Echocardiogram with LVEF of 50%. Moderate aortic valve calcification and mild stenosis. Mild mitral/tricuspid regurgitation. Cardiac catheterization [id number] 90% stenosis of a branch of the ramus. Small. Ostial LAD 20% stenosis. Otherwise unremarkable. Will request records from [facility]. To evaluate for cardiomyopathy, perform stress test. Due to Parkinson's, he is unable to exercise and hence we can do a pharmacological stress with Lexiscan. He has shakes in his hands but not in his body and hence hopefully can complete the study without artifact. Will follow-up in a few weeks. Orders: Orders CA lexiscan stress w day Today I20.9 - Angina pectoris, unspecified NM cardiolite stress test Today R07.2 - Precordial pain Medications: Changed From alendronate 70 mg PO QWEEK 12 tabs 1RF To alendronate 70 mg PO QWEEK Coding Level of Care Code New Pt Level 4 (77455) Diagnoses Cardiomyopathy I42.9 Valvular heart disease I38 CPT Codes EKG - CPT: 88473-[id number], Complete ([id number])
[2023-10-01 08:31] VITALS: BP 106/60; PULSE 59; BMI 23.8
== END 2023-10-01 08:54 | disposition home or self-care (01) ==
PROVIDERS: PCP Physician Assistant Medical; Visit Provider Internal Medicine
DX: I42.9 Cardiomyopathy, unspecified (principal); I38 Endocarditis, valve unspecified
CPT/HCPCS: 93010; 99214

== ENCOUNTER → 2023-10-01 08:02 | Outpatient (BNVA) | payer MEDICARE, SELFPAY | PROVIDERS: PCP Physician Assistant Medical; Visit Provider Internal Medicine | DX: I42.9 Cardiomyopathy, unspecified (principal); I38 Endocarditis, valve unspecified | CPT/HCPCS: 93005; 99212 ==

== ENCOUNTER 2023-11-06 10:23 | Outpatient (AMB) | payer MEDICARE, SELFPAY ==
--- NOTE | 2023-11-06 10:41 | A.OFFVIS_ITS ---
Intake Vital Signs 11/06/23 10:42 Height 5 ft 8 in Weight 155 lb 6.814 oz BMI 23.6 BP 102/74 Blood Pressure Location Rt brachial Position Sitting Pulse 76 Pulse Source Palpation Temp 97 F Temp Source Skin Intake Visit Reasons: RA Intake Note: Patient last seen 08/12/23 presents today for follow up and test results. Intelligence Director Required: No Accompanied by: Self / Same As Patient Allergies sertraline Allergy (Intermediate, Verified 11/06/23 10:41) nausea,dizziness acetaminophen [From Percocet] Allergy (Unknown, Verified 11/06/23 10:41) unknown amoxicillin Allergy (Unknown, Verified 11/06/23 10:41) unknown erythromycin base Allergy (Unknown, Verified 11/06/23 10:41) unknown minocycline Allergy (Unknown, Verified 11/06/23 10:41) unknown oxycodone [From Percocet] Allergy (Unknown, Verified 11/06/23 10:41) unknown polymyxinb tmp Allergy (Intermediate, Uncoded 11/06/23 10:41) swelling, rash Medication List - Last Reconciled 11/06/23 by Analy Enamorado MD alendronate 70 mg PO QWEEK amlodipine 10 mg PO DAILY ammonium lactate 12% appl topical atorvastatin 20 mg PO DAILY bupropion HCl 100 mg PO BEDTIME bupropion HCl 200 mg PO DAILY carbidopa-levodopa 25-100 mg 1 tab PO .6 x a day diclofenac sodium 1% 4 grams topical QID doxycycline hyclate 100 mg PO BID entacapone 200 mg PO .6 x a day with carbi folic acid 3 mg (3 x 1 mg) PO DAILY lisinopril 40 mg PO DAILY lorazepam 0.5 mg PO BEDTIME PRN meloxicam 7.5 mg PO DAILY methotrexate sodium 12.5 mg (5 x 2.5 mg) PO QWEEK metronidazole 0.75% 1 appl topical DAILY mirtazapine 30 mg PO BEDTIME omeprazole 20 mg PO DAILY prednisone 10 mg PO DAILY ropinirole 2 mg PO BID tamsulosin 0.4 mg PO BEDTIME trazodone 50 mg PO BEDTIME PRN HPI HPI Comments History of Present Illness Details 78-year-old male with RA returns for [facility] low-up. On methotrexate 12.5 mg weekly and folic acid 3 mg daily. He continues to have similar symptoms of pain across his PIP, bilateral 1st CMC joints, few MCPs. He had a steroid injection in the left thumb 3 weeks ago. He states that the hand surgeon suggested trigger finger release for the left middle finger and surgery for left 1st CMC joint. Patient is putting it off as his was recently diagnosed with Alzheimer's and she feels that she is progressing too fast. He has to take care of her at home. He is quite stressed about this. He has been evaluated by Cardiology for mildly depressed EF and scheduled for a nuclear stress test. Initial history: This is a 76-year-old male with a complex past medical history including rheumatoid arthritis RF negative, CCP is positive used to see Dr. Mishra who presents for evaluation of rheumatoid arthritis. The condition was diagnosed in 2018 and since then he has been on methotrexate 6 tabs weekly plus folic acid with better control of his RA symptoms. He has not been on methotrexate since November of 2021 as he could not get a prescription. He continues to have pain in both thumbs as well as his fingers. 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 He receives bilateral thumb intra-articular steroid injections every 3 months which gave him about 1 month relief, last injection was 2 months ago. He denies any other joint pain or swelling. About 2 years ago he developed right foot drop, also developed tremors and was diagnosed with Parkinson's by Neurology. For his footdrop he went to physical therapy and was prescribed a brace. The brace helps. But his footdrop has not improved. [facility] Medical History (Updated 11/06/23 @ 11:27 by Analy Enamorado MD) Gout Footdrop BPH (benign prostatic hyperplasia) Hypertension Diverticulosis Thrombocytopenia Acid reflux Basal cell carcinoma Cholelithiasis Nephrolithiasis PTSD (post-traumatic stress disorder) Parkinsons Osteoarthritis of hands, bilateral Chronic sinus bradycardia Restless leg Seronegative rheumatoid arthritis Dyslipidemia Surgical History S/P trigger finger release Hx of endoscopy S/P TURP Hx of tonsillectomy Hx of lithotripsy Hx of colonoscopy Family History Mother Arthritis Social History Household Members: Spouse Housing: House Do you presently have visiting nurse or other home services: No Alcohol intake: never Patient Tobacco Use Status: Never used Tobacco e-Cigarette/Vaping Use: Never Used service: Yes Current occupational status: retired 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 Review of Systems Eyes Reports no additional complaints Musc Reports arthralgias Psych Reports anxiety Physical Exam Vital Signs: Last Vital Signs Temp 97 F 11/06/23 10:42 Pulse 76 11/06/23 10:42 BP 102/74 11/06/23 10:42 BMI result Body Mass Index 23.6 Const General: cooperative, healthy appearing and comfortable Nutritional Appearance: average body habitus Orientation/consciousness: patient oriented x3 Limitations: ambulation with cane HEENT Head: Yes normocephalic and Yes atraumatic Mouth: Normal oral and palatal mucosa present Resp Effort & Inspection: normal respiratory effort and able to speak in complete sentences Auscultation: clear to auscultation bilaterally Cardio Heart sounds: Murmur heart sound present systolic Skin Other: Some areas of senile purpura Neuro Other: Right footdrop General: patient oriented x3 Extrem Other: Extensive osteoarthritic changes of both hands with bilateral squaring of CMC joint tender to palpation Extensive Heberden's and Carrie's nodes, tender to palpation Left ulnar styloid prominence and tenderness to palpation Right 2nd through 5th MCP joint tenderness Left 2nd and 3rd MCP tenderness Bilateral fat atrophy at anatomical snuffbox Assessment & Plan Assessment & Plan (1) Rheumatoid arthritis involving both hands with negative rheumatoid factor: Comment: dx 2018 (low titer +CCP negative on repeat) Methotrexate started 2018 reduced from 15 to 12.5 mg 12/12 due to cytopenias & CKD Code(s): M06.041 - Rheumatoid arthritis without rheumatoid factor, right hand; M06.042 - Rheumatoid arthritis without rheumatoid factor, left hand Plan: 77-year-old male with rheumatoid arthritis, (RF negative, CCP low positive, -ve on repeat) who presents for follow-up. Patient continues to have multiple tender joints on methotrexate 12.5 mg weekly. Discussed risks and benefits of hydroxychloroquine. Patient is agreeable to started. He has an appointment with fisheries diver Dr. Lopez next week. Advised patient to discuss hydroxychloroquine with him, patient will need Plaquenil screening before we start Continue methotrexate 12.5 mg weekly folic acid 3 mg daily Infectious screening hepatitis panel and T spot -ve 2021 Labs today and before next visit in 3 months (2) Methotrexate, custodial, current use: Code(s): Z79.899 - Other custodial (current) drug therapy Plan: Monitor safety labs (3) Pseudogout: Code(s): M11.20 - Other chondrocalcinosis, unspecified site Plan: On 08/16/2022 patient presented with acute left wrist pain and swelling which rapidly responded to prednisone.? ?He stated that 10 years ago he had similar pain affecting his right foot.? He also has history of urate kidney stones. I had attempted left wrist arthrocentesis, unfortunately it was a dry tap.? He had another flare 08/2023 which rapidly resolved with steroid taper Repeat uric acid level when not in a flare showed a normal uric acid level.? This seems to be a pseudogout flare.? Will continue to monitor patient clinically.? If patient starts developing recurrent pseudogout flares.? Will consider starting colchicine (4) Osteoporosis: Code(s): M81.0 - Age-related osteoporosis without current pathological fracture Qualifiers: Osteoporosis type: age-related Presence of current pathological fracture: without current pathological fracture Qualified Code(s): M81.0 - Age- related osteoporosis without current pathological fracture Plan: DEXA shows a T-score-3.0 total left femur. Patient has been getting intra- articular steroid injections for his hand osteoarthritis almost every 3 months for years. This might be a contributing factor. Continue alendronate 70 mg once weekly. Well tolerated. Repeat DEXA scan around 12/14 (5) Osteoarthritis of hands, bilateral: Code(s): M19.041 - Primary osteoarthritis, right hand; M19.042 - Primary osteoarthritis, left hand Qualifiers: Osteoarthritis type: primary Qualified Code(s): M19.041 - Primary osteoarthritis, right hand; M19.042 - Primary osteoarthritis, left hand Plan: Gets bilateral 1st CMC intra-articular steroid injections by Orthopedics every 3 months. (6) CKD (chronic kidney disease): Code(s): N18.9 - Chronic kidney disease, unspecified Qualifiers: Chronic kidney disease stage: stage 3 (moderate) Chronic kidney disease stage 3 subtype: stage 3b (GFR 30-44) Qualified Code(s): N18.32 - Chronic kidney disease, stage 3b Plan: Seems relatively stable. Follow-up with PCP (7) Murmur: Code(s): R01.1 - Cardiac murmur, unspecified Plan: Systolic murmur on exam. Mildly depressed ejection fraction. 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 Panel Today Z79.899 - Other custodial (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
[2023-11-06 10:42] VITALS: BP 102/74; PULSE 76; TEMP 36.1; BMI 23.6
== END 2023-11-06 11:19 | disposition home or self-care (01) ==
PROVIDERS: PCP Physician Assistant Medical; Visit Provider Student in an Organized Health Care Education/Training Program
DX: M06.041 Rheumatoid arthritis without rheumatoid factor, right hand (principal); M06.042 Rheumatoid arthritis without rheumatoid factor, left hand; Z79.899 Other long term (current) drug therapy; M11.20 Other chondrocalcinosis, unspecified site; M81.0 Age-related osteoporosis without current pathological fracture; M19.041 Primary osteoarthritis, right hand; M19.042 Primary osteoarthritis, left hand; N18.32 Chronic kidney disease, stage 3b; R01.1 Cardiac murmur, unspecified
CPT/HCPCS: 99215

== ENCOUNTER → 2023-11-06 10:23 | Outpatient (BNVA) | payer MEDICARE, SELFPAY | PROVIDERS: PCP Physician Assistant Medical; Visit Provider Student in an Organized Health Care Education/Training Program | DX: M06.041 Rheumatoid arthritis without rheumatoid factor, right hand (principal); M06.042 Rheumatoid arthritis without rheumatoid factor, left hand; M11.20 Other chondrocalcinosis, unspecified site; M81.0 Age-related osteoporosis without current pathological fracture; M19.041 Primary osteoarthritis, right hand; M19.042 Primary osteoarthritis, left hand; N18.32 Chronic kidney disease, stage 3b; R01.1 Cardiac murmur, unspecified; Z79.899 Other long term (current) drug therapy | CPT/HCPCS: 99212 ==

== ENCOUNTER 2023-11-06 11:26 | Outpatient (REF) | payer MEDICARE, SELFPAY ==
[2023-11-06 13:22] LABS: MANUAL DIFF FLAG NO
[2023-11-06 13:35] LABS: Basophils Percent Auto 0.5 % (0-2); Eosinophils Absolute Auto 0.1 X10*3/uL (0.0-0.4); Eosinophils Percent Auto 1.1 % (0-4); Hematocrit 40.2 % (42.0-52.0); Hemoglobin 13.2 g/dl (14.0-18.0); Lymphocytes Absolute Auto 1.3 X10*3/uL (1.2-4.9); Lymphocytes Percent Auto 23.7 % (20-40); Mean Corpuscular HGB Conc 32.8 g/dl (31.0-36.0); Mean Corpuscular Hemoglobin 32.4 pg (27.0-33.0); Mean Corpuscular Volume 98.5 fL (80.0-98.0); Mean Platelet Volume 10.3 fL (9.4-12.4); Monocytes Absolute Auto 0.5 X10*3/uL (0.1-1.2); Monocytes Percent Auto 8.3 % (2-11); Neutrophils Absolute Auto 3.7 x10*3/uL (2.0-8.3); Neutrophils Percent Auto 66.4 % (45-73); Platelet Count 162 X10*3/uL (160-400); Red Blood Count 4.08 X10*6/uL (4.60-5.80); Red Cell Distribution Width 12.5 % (11.0-16.0); White Blood Count 5.5 X10*3/uL (4.8-10.8)
[2023-11-06 13:54] LABS: Alanine Aminotransferase 18 U/L (0-40); Albumin Level 4.4 g/dL (3.5-5.0); Alkaline Phosphatase 83 U/L (39-117); Anion Gap 11 (12-20); Aspartate Amino Transferase 19 U/L (5-37); Blood Urea Nitrogen 20 mg/dL (9-16); Calcium 9.5 mg/dL (8.4-10.2); Carbon Dioxide 28 mmol/L (22-29); Chloride 107 mmol/L (96-108); Estimated Glomerular Filt Rate 47; Glucose Random 98 mg/dL (60-115); Potassium 4.1 mmol/L (3.3-5.1); Sodium 142 mmol/L (135-145); Total Protein 7.4 g/dL (6.5-8.0)
[2023-11-06 14:14] LABS: Erythrocyte Sedimentation Rate 18 MM/HR (0-15)
== END 2023-11-06 11:27 | disposition home or self-care (01) ==
LOC: HO.10HDL 11:26
PROVIDERS: Visit Provider Student in an Organized Health Care Education/Training Program
DX: Z79.899 Other long term (current) drug therapy (principal)
CPT/HCPCS: 36415; 80053; 85025; 85652; 86140

== ENCOUNTER → 2023-11-20 07:36 | Outpatient (REF) | payer MEDICARE, SELFPAY ==
--- NOTE | ~2023-11-20 | NM_ITS ---
Myocardial perfusion study Indication: Precordial chest pain Technique: The patient was brought in for a Lexiscan perfusion study on 11/20/2023. Patient performed low-level exercise and was injected 0.4 mg of Lexiscan intravenously. Within a minute of injection, 25 mCi of sestamibi was given intravenously. Images were obtained using the SPECT gamma camera interlaced with the gating device. Images were obtained in supine position. Resting perfusion study was performed on 11/21/2023. Patient was administered 25 mCi of sestamibi intravenously at rest. Images were then obtained in supine position. Images obtained with and without CT attenuation. Total DLP 106 mGy-cm. Images were processed with the software and compared side to side in short axis, horizontal long axis and vertical long axis views. Findings: The stress perfusion study showed non attenuated images show mildly reduced uptake in the basal anterior and moderately reduced uptake in the mid inferior as well as mildly reduced uptake in the anteroapical wall of the LV myocardium. Attenuation corrected images show mildly reduced uptake in the basal anterior and severely reduced uptake in the mid inferior and mildly reduced uptake in the inferoapical wall of the LV myocardium. The gated study shows reduced LV systolic function with calculated LVEF of 48%. LV cavity is normal in size. The gated study shows reduced thickening and contraction of mid anterior segments. Resting study shows improved uptake in the basal anterior normal as well as mildly reduced uptake in the mid anterior and normalize uptake in the distal anterior wall of the LV myocardium.. Gating at rest reveals mid anterior wall motion with ejection fraction at 51%. The findings are consistent with reversible defect of the anterior wall suggestive of ischemia. NM/NM cardiolite stress test Impression: 1. Myocardial perfusion imaging study shows mild to moderate intensity anterior wall ischemia 2. Gated LVEF is 51% 3. Transient ischemic dilatation not present EKG is nondiagnostic for ischemia
--- NOTE | 2023-11-20 07:44 | CA_ITS ---
Acquisition Time: 2023-11-20 07:55:59 Total Exercise Time: 00:02:00 Test Indications: ABN ECHO Medications: SEE H Protocol: LEXISCAN Max HR: 103 BPM 73% of Pred: 141 BPM Max BP: 152/074 mmHG Max Work Load: 1.6 METS Pharmacological stress test with Lexiscan injection while walking slowly on the treadmill, without anginal symptoms, with isolated PACs and PVCs, ventricular bigeminy, with resting HTN, normotensive response to injection, with nondiagnoisitic EKGs. Aminophylline 75mg IVP given to reverse Lexiscan. Nuclear images pending. Test reviewed with Dr. Kohler Referred By: Dioni Jacobson Overread By: Magalys Caban
== END ==
LOC: HO.CARD 07:36
PROVIDERS: PCP Physician Assistant Medical; Visit Provider Internal Medicine
DX: R07.2 Precordial pain (principal); I20.9 Angina pectoris, unspecified
CPT/HCPCS: 78452; 93017; A9500; J0280; J2785

== ENCOUNTER → 2023-11-20 07:44 | Outpatient (BNV) | payer MEDICARE, SELFPAY | PROVIDERS: PCP Physician Assistant Medical; Visit Provider Nurse Practitioner | DX: I25.10 Atherosclerotic heart disease of native coronary artery without angina pectoris (principal) | CPT/HCPCS: 78452; 93016; 93018 ==

== ENCOUNTER 2023-11-26 13:15 | Outpatient (AMB) | payer MEDICARE, SELFPAY ==
[2023-11-26 13:24] VITALS: BP 110/62; PULSE 66; BMI 24.0
--- NOTE | 2023-11-26 13:24 | A.OFFVIS_ITS ---
Intake Vital Signs 11/26/23 13:24 Height 5 ft 8 in Weight 157 lb 13.616 oz BMI 24.0 BP 110/62 Blood Pressure Location Lt brachial Position Sitting Pulse 66 Intake Visit Reasons: follow up stress test Intake Note: follow up stress Negative Cleaner Required: No Accompanied by: Daughter Allergies sertraline Allergy (Intermediate, Verified 11/26/23 13:28) nausea,dizziness acetaminophen [From Percocet] Allergy (Unknown, Verified 11/26/23 13:28) unknown amoxicillin Allergy (Unknown, Verified 11/26/23 13:28) unknown erythromycin base Allergy (Unknown, Verified 11/26/23 13:28) unknown minocycline Allergy (Unknown, Verified 11/26/23 13:28) unknown oxycodone [From Percocet] Allergy (Unknown, Verified 11/26/23 13:28) unknown polymyxinb tmp Allergy (Intermediate, Uncoded 11/26/23 13:28) swelling, rash Medication List - Last Reconciled 11/26/23 by Dioni Jacobson MD alendronate 70 mg PO QWEEK amlodipine 10 mg PO DAILY ammonium lactate 12% appl topical atorvastatin 20 mg PO DAILY bupropion HCl 100 mg PO BEDTIME bupropion HCl 200 mg PO DAILY carbidopa-levodopa 25-100 mg 1 tab PO .6 x a day diclofenac sodium 1% 4 grams topical QID doxycycline hyclate 100 mg PO BID entacapone 200 mg PO .6 x a day with carbi folic acid 3 mg (3 x 1 mg) PO DAILY lisinopril 40 mg PO DAILY lorazepam 0.5 mg PO BEDTIME PRN meloxicam 7.5 mg PO DAILY methotrexate sodium 12.5 mg (5 x 2.5 mg) PO QWEEK metronidazole 0.75% 1 appl topical DAILY mirtazapine 30 mg PO BEDTIME omeprazole 20 mg PO DAILY prednisone 10 mg PO DAILY ropinirole 2 mg PO BID tamsulosin 0.4 mg PO BEDTIME trazodone 50 mg PO BEDTIME PRN HPI HPI Comments History of Present Illness Details Caleb returns for follow-up. Recently seen in consultation regarding an abnormal echocardiogram.That had showed mildly diminished LVEF at 52%. Mild aortic stenosis and mild mitral/tricuspid regurgitation. It seems that he has seen [facility] many years ago but nothing recently. He does not remember the reasons why. Otherwise, he does not get any chest pains but does get short of breath with activity. He is having lot of tremors and he states it is because of Parkinson's. No known coronary disease myocardial infarction known to him. [facility] Medical History (Updated 11/26/23 @ 13:42 by Dioni Jacobson MD) Atherosclerotic cardiovascular disease Gout Footdrop BPH (benign prostatic hyperplasia) Hypertension Diverticulosis Thrombocytopenia Acid reflux Basal cell carcinoma Cholelithiasis Nephrolithiasis PTSD (post-traumatic stress disorder) Parkinsons Osteoarthritis of hands, bilateral Chronic sinus bradycardia Restless leg Seronegative rheumatoid arthritis Dyslipidemia Surgical History S/P trigger finger release Hx of endoscopy S/P TURP Hx of tonsillectomy Hx of lithotripsy Hx of colonoscopy Family History Mother Arthritis Social History Household Members: Spouse Housing: House Do you presently have visiting nurse or other home services: No Alcohol intake: never Patient Tobacco Use Status: Never used Tobacco e-Cigarette/Vaping Use: Never Used service: Yes Current occupational status: retired 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 Review of Systems Const Denies weakness ENT Denies dizziness Card Denies chest pain, Denies chest pain with activity, Denies syncope, Denies rapid heart rate, Denies pedal edema, Denies edema, Denies leg edema, Denies lightheadedness, Denies palpitations, Denies dyspnea on exertion and Denies orthopnea Resp Denies cough and Denies dyspnea on exertion GI Denies hematochezia and Denies change in stool character Musc Denies abnormal gait, Denies muscle cramps, Denies muscle weakness, Denies numbness, Denies radiating pain into limb and Denies tingling Neuro Denies Abnormal speech present, Denies abnormal gait, Denies dizziness, Denies syncope, Denies numbness, Denies tingling and Denies weakness Endo Denies palpitations Physical Exam Vital Signs: Last Vital Signs Pulse 66 11/26/23 13:24 BP 110/62 11/26/23 13:24 BMI result Body Mass Index 24.0 Const General: comfortable and no acute distress Orientation/consciousness: patient oriented x3 HEENT Other: Unremarkable Head: Yes normal to inspection Neck Neck: Yes normal visual inspection Chest Chest palpation & inspection: normal inspection of the chest Resp Auscultation: clear to auscultation bilaterally Cardio Palpation: normal PMI Heart sounds: S1 normal heart sound present, S2 normal heart sound present, no gallops, Murmur heart sound present systolic II/ and at the right sternal border and no rubs GI Palpation (GI): Soft to palpation Back/Spine/Pelvis Other: unremarkable Skin General skin exam: no rashes or lesions noted Neuro General: patient oriented x3 Speech: No Abnormal speech present Extrem General: Yes normal to inspection Psych Mental Status: mental status grossly normal Assessment & Plan Assessment & Plan (1) Atherosclerotic cardiovascular disease: Code(s): I25.10 - Atherosclerotic heart disease of [place] coronary artery without angina pectoris (2) Cardiomyopathy: Code(s): I42.9 - Cardiomyopathy, unspecified (3) Valvular heart disease: Code(s): I38 - Endocarditis, valve unspecified Plan Echocardiogram with LVEF of 50%. Moderate aortic valve calcification and mild stenosis. Mild mitral/tricuspid regurgitation. Myocardial perfusion imaging study with [id number] intensity anterior wall ischemia. LVEF was 51%. Cardiac catheterization [id number] 90% stenosis of a branch of the ramus. Small. Ostial LAD 20% stenosis. Otherwise unremarkable. Overall, known coronary disease, ongoing shortness of breath, mild cardiomyopathy on echocardiogram with abnormal stress test findings. We discussed these today with patient as well as daughter. Recommendation be to go ahead with a diagnostic angiogram to reassess coronary anatomy. They are agreeable. Take low-dose aspirin. Continue statins. He has some baseline renal dysfunction but that has been stable. We can recheck the creatinine before the procedure rate. Also because of complaints of shortness of breath, we will also get a chest x- ray. Orders: Orders Basic Metabolic Panel 2 Weeks I25.10 - Atherosclerotic heart disease of [place] coronary artery without angina pectoris Prothrombin Time INR 2 Weeks I25.10 - Atherosclerotic heart disease of [place] coronary artery without angina pectoris XR chest 2V Today R06.02 - Shortness of breath Coding Level of Care Code Est Pt Level 4 (70888) Diagnoses Atherosclerotic cardiovascular disease I25.10 Cardiomyopathy I42.9 Valvular heart disease I38
== END 2023-11-26 13:49 | disposition home or self-care (01) ==
PROVIDERS: PCP Physician Assistant Medical; Visit Provider Internal Medicine
DX: I25.10 Atherosclerotic heart disease of native coronary artery without angina pectoris (principal); I42.9 Cardiomyopathy, unspecified; I38 Endocarditis, valve unspecified
CPT/HCPCS: 99214

== ENCOUNTER 2023-11-26 13:15 | Outpatient (REF) | payer MEDICARE, SELFPAY ==
--- NOTE | ~2023-11-26 | XR_ITS ---
EXAMINATION: XR CHEST CLINICAL INFORMATION: Shortness of breath COMPARISON: None available. TECHNIQUE: 2 views of the chest were obtained. FINDINGS: The cardiac and mediastinal contours are normal. Lungs are clear. No pleural effusion or pneumothorax. Degenerative changes of the spine. XR/XR chest 2V IMPRESSION: No evidence for acute disease in the chest.
== END 2023-11-26 13:16 | disposition home or self-care (01) ==
LOC: HO.XRAY 13:15
PROVIDERS: PCP Physician Assistant Medical; Visit Provider Internal Medicine
DX: R06.02 Shortness of breath (principal); I25.10 Atherosclerotic heart disease of native coronary artery without angina pectoris; I42.9 Cardiomyopathy, unspecified; I38 Endocarditis, valve unspecified
CPT/HCPCS: 71046; 99212

== ENCOUNTER 2023-12-15 07:40 | Outpatient (REF) | payer MEDICARE, SELFPAY ==
[2023-12-15 08:05] LABS: Prothrombin Time 12.5 SEC (11.1-13.3)
[2023-12-15 08:14] LABS: Anion Gap 12 (12-20); Blood Urea Nitrogen 19 mg/dL (9-16); Carbon Dioxide 27 mmol/L (22-29); Chloride 108 mmol/L (96-108); Estimated Glomerular Filt Rate 49; Glucose Random 110 mg/dL (60-115); Potassium 3.9 mmol/L (3.3-5.1); Sodium 143 mmol/L (135-145)
== END 2023-12-15 07:41 | disposition home or self-care (01) ==
LOC: HO.LAB 07:40
PROVIDERS: PCP Physician Assistant Medical; Visit Provider Internal Medicine
DX: I25.10 Atherosclerotic heart disease of native coronary artery without angina pectoris (principal)
CPT/HCPCS: 36415; 80048; 85610

== ENCOUNTER → 2023-12-16 23:59 | Outpatient (BNV) | payer MEDICARE, SELFPAY | PROVIDERS: PCP Physician Assistant Medical; Visit Provider Internal Medicine Cardiovascular Disease | DX: I20.89 Other forms of angina pectoris (principal); R93.1 Abnormal findings on diagnostic imaging of heart and coronary circulation | CPT/HCPCS: 93458; 99152 ==

== ENCOUNTER 2023-12-30 12:34 | Outpatient (AMB) | payer MEDICARE, SELFPAY ==
[2023-12-30 12:53] VITALS: BP 122/70; PULSE 70; BMI 23.6
--- NOTE | 2023-12-30 12:53 | A.OFFVIS_ITS ---
Intake Vital Signs 12/30/23 12:53 Height 5 ft 8 in Weight 155 lb 3.287 oz BMI 23.6 BP 122/70 Blood Pressure Location Lt brachial Position Sitting Pulse 70 Intake Visit Reasons: 2 wk f/u Cath HS Intake Note: 2 week follow up CATH PT feels good Allergies sertraline Allergy (Intermediate, Verified 12/30/23 13:26) nausea,dizziness acetaminophen [From Percocet] Allergy (Unknown, Verified 12/30/23 13:26) unknown amoxicillin Allergy (Unknown, Verified 12/30/23 13:26) unknown erythromycin base Allergy (Unknown, Verified 12/30/23 13:26) unknown minocycline Allergy (Unknown, Verified 12/30/23 13:26) unknown oxycodone [From Percocet] Allergy (Unknown, Verified 12/30/23 13:26) unknown polymyxinb tmp Allergy (Intermediate, Uncoded 12/30/23 13:26) swelling, rash Medication List - Last Reconciled 12/30/23 by Magalys Caban, JEANIE alendronate 70 mg PO QWEEK amlodipine 10 mg PO DAILY ammonium lactate 12% appl topical aspirin 81 mg PO DAILY atorvastatin 20 mg PO DAILY bupropion HCl 100 mg PO BEDTIME bupropion HCl 200 mg PO DAILY carbidopa-levodopa 25-100 mg 1 tab PO .6 x a day diclofenac sodium 1% 4 grams topical QID doxycycline hyclate 100 mg PO BID entacapone 200 mg PO .6 x a day with carbi folic acid 3 mg (3 x 1 mg) PO DAILY lisinopril 40 mg PO DAILY lorazepam 0.5 mg PO BEDTIME PRN meloxicam 7.5 mg PO DAILY methotrexate sodium 12.5 mg (5 x 2.5 mg) PO QWEEK metronidazole 0.75% 1 appl topical DAILY mirtazapine 30 mg PO BEDTIME omeprazole 20 mg PO DAILY prednisone 10 mg PO DAILY ropinirole 2 mg PO BID tamsulosin 0.4 mg PO BEDTIME trazodone 50 mg PO BEDTIME PRN HPI HPI Comments History of Present Illness Details 78-year-old male is here today for a fol low-up after having a cardiac catheterization. His cath report shows small vessel disease. He does report some stress currently due to anniversaries of prior events, but otherwise doing well with shortness of breath on exertion still. States he had a PFT done about 1-2 years ago and came back fine. He is also working with his PCP related to his swallowing difficulties. [facility] Medical History Atherosclerotic cardiovascular disease Gout Footdrop BPH (benign prostatic hyperplasia) Hypertension Diverticulosis Thrombocytopenia Acid reflux Basal cell carcinoma Cholelithiasis Nephrolithiasis PTSD (post-traumatic stress disorder) Parkinsons Osteoarthritis of hands, bilateral Chronic sinus bradycardia Restless leg Seronegative rheumatoid arthritis Dyslipidemia Surgical History S/P cardiac cath S/P trigger finger release Hx of endoscopy S/P TURP Hx of tonsillectomy Hx of lithotripsy Hx of colonoscopy Family History Mother Arthritis Social History Household Members: Spouse Housing: House Do you presently have visiting nurse or other home services: No Alcohol intake: never Patient Tobacco Use Status: Never used Tobacco e-Cigarette/Vaping Use: Never Used service: Yes Current occupational status: retired 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 Review of Systems Const Denies weakness ENT Denies dizziness Card Denies chest pain, Denies chest pain with activity, Denies syncope, Denies rapid heart rate, Denies pedal edema, Denies edema, Denies leg edema, Denies lightheadedness, Denies palpitations, Denies dyspnea, Denies dyspnea on exertion and Denies orthopnea Resp Denies cough, Denies dyspnea and Denies dyspnea on exertion GI Denies hematochezia and Denies change in stool character Musc Denies abnormal gait, Denies muscle cramps, Denies muscle weakness, Denies numbness, Denies radiating pain into limb and Denies tingling Neuro Denies abnormal gait, Denies dizziness, Denies syncope, Denies numbness, Denies tingling and Denies weakness Endo Denies palpitations Physical Exam Vital Signs: Last Vital Signs Pulse 70 12/30/23 12:53 BP 122/70 12/30/23 12:53 BMI result Body Mass Index 23.6 Const General: healthy appearing and no acute distress Orientation/consciousness: patient oriented x3 HEENT Head: Yes normal to inspection Eyes General: appearance normal, both eyes and all related structures Neck Neck: Yes normal visual inspection Chest Chest palpation & inspection: normal inspection of the chest Resp Effort & Inspection: normal respiratory effort Auscultation: clear to auscultation bilaterally Cardio Jugular venous distension: no JVD Palpation: normal PMI Rate: regular rate Rhythm: regular rhythm Heart sounds: S1 normal heart sound present, S2 normal heart sound present, no click, no gallops, no murmurs and no rubs GI Inspection: Yes normal to inspection Palpation (GI): Soft to palpation Skin General skin exam: no rashes or lesions noted Neuro General: patient oriented x3 Extrem Other: Right radial access site: healing appropriately. Skin intact. No redness, tenderness, or swelling noted. General: Yes normal to inspection Psych Appearance: grossly normal Assessment & Plan Assessment & Plan (1) S/P cardiac cath: Comment: 12/16/[address] Anderson LMCA: Normal LAD: Mild diffuse disease proximal LAD. LCx: Ostial OM1 80% stenosis. Small sized vessel with diffuse disease. For medical management. RCA: Mild luminal irregularities (<30%) Ramus: Large ramus branch with small sidebranch with 80% stenosis. Code(s): Z98.890 - Other specified postprocedural states Plan Right radial site healing appropriately. Patient is currently on atorvastatin 20mg - will send for lipid panel. He is on ASA 81mg - continue indefinitely. [facility] He would like us to get that before proceeding for his shortness of breath. He is seeing his PCP soon - he wants to discuss with them regarding pulmonary evaluation also. Orders: Orders Lipid Panel 12/30/23 I25.10 - Atherosclerotic heart disease of [place] coronary artery without angina pectoris Coding Level of Care Code Est Pt Level 3 (22575) Diagnoses S/P cardiac cath Z98.890
== END 2023-12-30 13:31 | disposition home or self-care (01) ==
PROVIDERS: PCP Physician Assistant Medical; Visit Provider Nurse Practitioner
DX: Z98.890 Other specified postprocedural states (principal)
CPT/HCPCS: 99213

== ENCOUNTER 2023-12-30 12:34 | Outpatient (REF) | payer MEDICARE, SELFPAY ==
[2023-12-30 13:46] LABS: MANUAL DIFF FLAG NO
[2023-12-30 14:16] LABS: Basophils Percent Auto 0.3 % (0-2); Eosinophils Percent Auto 0.7 % (0-4); Hematocrit 38.4 % (42.0-52.0); Hemoglobin 12.6 g/dl (14.0-18.0); Imm Gran Abs Auto 0.02 X10*3/uL (0.00-0.03); Imm Gran Pct Auto 0.3 % (0.0-0.4); Lymphocytes Absolute Auto 1.2 X10*3/uL (1.2-4.9); Lymphocytes Percent Auto 19.6 % (20-40); Mean Corpuscular HGB Conc 32.8 g/dl (31.0-36.0); Mean Corpuscular Hemoglobin 33.2 pg (27.0-33.0); Mean Corpuscular Volume 101.3 fL (80.0-98.0); Mean Platelet Volume 10.5 fL (9.4-12.4); Monocytes Absolute Auto 0.4 X10*3/uL (0.1-1.2); Monocytes Percent Auto 6.4 % (2-11); Neutrophils Absolute Auto 4.4 x10*3/uL (2.0-8.3); Neutrophils Percent Auto 72.7 % (45-73); Platelet Count 137 X10*3/uL (160-400); Red Blood Count 3.79 X10*6/uL (4.60-5.80)
[2023-12-30 14:57] LABS: Alanine Aminotransferase 14 U/L (0-40); Albumin Level 4.4 g/dL (3.5-5.0); Alkaline Phosphatase 78 U/L (39-117); Anion Gap 10 (12-20); Aspartate Amino Transferase 21 U/L (5-37); Bilirubin Total 1.1 mg/dL (0.0-1.0); Blood Urea Nitrogen 18 mg/dL (9-16); Calcium 9.4 mg/dL (8.4-10.2); Carbon Dioxide 29 mmol/L (22-29); Chloride 108 mmol/L (96-108); Estimated Glomerular Filt Rate 55; Glucose Random 101 mg/dL (60-115); Potassium 4.3 mmol/L (3.3-5.1); Sodium 143 mmol/L (135-145); Total Protein 7.1 g/dL (6.5-8.0)
[2023-12-30 14:59] LABS: Erythrocyte Sedimentation Rate 14 MM/HR (0-15)
== END 2023-12-30 12:35 | disposition home or self-care (01) ==
LOC: HO.LAB 12:34
PROVIDERS: Student in an Organized Health Care Education/Training Program; PCP Physician Assistant Medical; Visit Provider Nurse Practitioner
DX: I25.10 Atherosclerotic heart disease of native coronary artery without angina pectoris (principal); Z98.890 Other specified postprocedural states; Z79.899 Other long term (current) drug therapy
CPT/HCPCS: 36415; 80053; 85025; 85652; 86140; 99212

== ENCOUNTER 2024-01-05 13:35 | Outpatient (REF) | payer MEDICARE, SELFPAY ==
[2024-01-05 14:53] LABS: Cholesterol 140 mg/dL (<200); HDL Cholesterol 47 mg/dL (>40); LDL Cholesterol Calculated 83 mg/dL (<100); Triglycerides 51 mg/dL (<150)
== END 2024-01-05 13:36 | disposition home or self-care (01) ==
LOC: HO.LAB 13:35
PROVIDERS: PCP Physician Assistant Medical; Visit Provider Nurse Practitioner
DX: I25.10 Atherosclerotic heart disease of native coronary artery without angina pectoris (principal); I10 Essential (primary) hypertension
CPT/HCPCS: 36415; 80061

== ENCOUNTER 2024-01-29 11:25 | Outpatient (REF) | payer MEDICARE, SELFPAY ==
[2024-01-29 11:45] LABS: MANUAL DIFF FLAG NO
[2024-01-29 12:42] LABS: Basophils Percent Auto 0.3 % (0-2); Eosinophils Absolute Auto 0.1 X10*3/uL (0.0-0.4); Eosinophils Percent Auto 1.3 % (0-4); Hematocrit 35.5 % (42.0-52.0); Hemoglobin 12.1 g/dl (14.0-18.0); Imm Gran Abs Auto 0.02 X10*3/uL (0.00-0.03); Imm Gran Pct Auto 0.3 % (0.0-0.4); Lymphocytes Absolute Auto 1.5 X10*3/uL (1.2-4.9); Lymphocytes Percent Auto 23.9 % (20-40); Mean Corpuscular HGB Conc 34.1 g/dl (31.0-36.0); Mean Corpuscular Hemoglobin 34.7 pg (27.0-33.0); Mean Corpuscular Volume 101.7 fL (80.0-98.0); Mean Platelet Volume 10.8 fL (9.4-12.4); Monocytes Absolute Auto 0.8 X10*3/uL (0.1-1.2); Monocytes Percent Auto 12.2 % (2-11); Neutrophils Absolute Auto 3.8 x10*3/uL (2.0-8.3); Platelet Count 132 X10*3/uL (160-400); Red Blood Count 3.49 X10*6/uL (4.60-5.80); White Blood Count 6.2 X10*3/uL (4.8-10.8)
[2024-01-29 13:08] LABS: Alanine Aminotransferase 20 U/L (0-40); Albumin Level 4.2 g/dL (3.5-5.0); Alkaline Phosphatase 70 U/L (39-117); Anion Gap 12 (12-20); Aspartate Amino Transferase 20 U/L (5-37); Blood Urea Nitrogen 22 mg/dL (9-16); C Reactive Protein 0.32 mg/dL (< or = 0.50); Calcium 9.1 mg/dL (8.4-10.2); Carbon Dioxide 29 mmol/L (22-29); Chloride 108 mmol/L (96-108); Estimated Glomerular Filt Rate 52; Glucose Random 81 mg/dL (60-115); Potassium 3.7 mmol/L (3.3-5.1); Sodium 145 mmol/L (135-145); Total Protein 6.9 g/dL (6.5-8.0)
[2024-01-29 13:45] LABS: Erythrocyte Sedimentation Rate 14 MM/HR (0-15)
== END 2024-01-29 11:26 | disposition home or self-care (01) ==
LOC: HO.LAB 11:25
PROVIDERS: Visit Provider Student in an Organized Health Care Education/Training Program
DX: Z13.89 Encounter for screening for other disorder (principal)
CPT/HCPCS: 36415; 80053; 85025; 85652; 86140

== ENCOUNTER 2024-02-05 08:31 | Outpatient (AMB) | payer MEDICARE, SELFPAY ==
--- NOTE | 2024-02-05 08:33 | A.OFFVIS_ITS ---
Intake Vital Signs 02/05/24 08:34 Height 5 ft 8 in Weight 156 lb 15.506 oz BMI 23.9 BP 114/60 Blood Pressure Location Rt brachial Position Sitting Pulse 58 Pulse Source Pulse Oximeter Pulse Oximetry (%) 100 Oxygen Delivery Method Room Air Intake Visit Reasons: RA Intake Note: Patient last seen 11/06/23 presents today for follow up and test results. C/o pain/soreness bl hands. Left hand getting worse. Reports cortisone injections bl thumbs in December with [facility] States his has alz and dementia and he takes care of a lot of things Cook Frozen Dessert Required: No Accompanied by: Self / Same As Patient Allergies sertraline Allergy (Intermediate, Verified 02/05/24 08:39) nausea,dizziness acetaminophen [From Percocet] Allergy (Unknown, Verified 02/05/24 08:39) unknown amoxicillin Allergy (Unknown, Verified 02/05/24 08:39) unknown erythromycin base Allergy (Unknown, Verified 02/05/24 08:39) unknown minocycline Allergy (Unknown, Verified 02/05/24 08:39) unknown oxycodone [From Percocet] Allergy (Unknown, Verified 02/05/24 08:39) unknown polymyxinb tmp Allergy (Intermediate, Uncoded 02/05/24 08:39) swelling, rash Medication List - Last Reconciled 02/05/24 by Analy Enamorado MD alendronate 70 mg PO QWEEK amlodipine 10 mg PO DAILY ammonium lactate 12% appl topical aspirin 81 mg PO DAILY atorvastatin 20 mg PO DAILY bupropion HCl 100 mg PO BEDTIME bupropion HCl 200 mg PO DAILY carbidopa-levodopa 25-100 mg 1 tab PO .6 x a day diclofenac sodium 1% 4 grams topical QID doxycycline hyclate 100 mg PO BID entacapone 200 mg PO .6 x a day with carbi folic acid 3 mg (3 x 1 mg) PO DAILY lisinopril 40 mg PO DAILY lorazepam 0.5 mg PO BEDTIME PRN meloxicam 7.5 mg PO DAILY methotrexate sodium 12.5 mg (5 x 2.5 mg) PO QWEEK metronidazole 0.75% 1 appl topical DAILY mirtazapine 30 mg PO BEDTIME omeprazole 20 mg PO DAILY prednisone 10 mg PO DAILY ropinirole 2 mg PO BID tamsulosin 0.4 mg PO BEDTIME trazodone 50 mg PO BEDTIME PRN HPI HPI Comments History of Present Illness Details 78-year-old male with RA returns for [facility]-up. On methotrexate 12.5 mg weekly and folic acid 3 mg daily. He continues to have similar symptoms of pain across his PIP, bilateral 1st CMC joints, few MCPs. He had a steroid injection in his thumbs in early December. He states that the hand surgeon suggested trigger finger release for the left middle finger and surgery for left 1st CMC joint. Patient is putting it off as his was recently diagnosed with Alzheimer's and she feels that she is progressing too fast. He has to take care of her at home. He is quite stressed about this. He recently had a heart catheterization which showed small-vessel disease. No stents were placed. Atorvastatin was increased from 10 mg daily to 20 mg daily and baby aspirin was added. Recently evaluated by Dr. Lopez and believes he was told that he is cleared to take hydroxychloroquine. Initial history: This is a 76-year-old male with a complex past medical history including rheumatoid arthritis RF negative, CCP is positive used to see Dr. Mishra who presents for evaluation of rheumatoid arthritis. The condition was diagnosed in 2018 and since then he has been on methotrexate 6 tabs weekly plus folic acid with better control of his RA symptoms. He has not been on methotrexate since November of 2021 as he could not get a prescription. He continues to have pain in both thumbs as well as his fingers. 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 He receives bilateral thumb intra-articular steroid injections every 3 months which gave him about 1 month relief, last injection was 2 months ago. He denies any other joint pain or swelling. About 2 years ago he developed right foot drop, also developed tremors and was diagnosed with Parkinson's by Neurology. For his footdrop he went to physical therapy and was prescribed a brace. The brace helps. But his footdrop has not improved. [facility] Medical History Atherosclerotic cardiovascular disease Gout Footdrop BPH (benign prostatic hyperplasia) Hypertension Diverticulosis Thrombocytopenia Acid reflux Basal cell carcinoma Cholelithiasis Nephrolithiasis PTSD (post-traumatic stress disorder) Parkinsons Osteoarthritis of hands, bilateral Chronic sinus bradycardia Restless leg Seronegative rheumatoid arthritis Dyslipidemia Surgical History S/P cardiac cath S/P trigger finger release Hx of endoscopy S/P TURP Hx of tonsillectomy Hx of lithotripsy Hx of colonoscopy Family History Mother Arthritis Social History Household Members: Spouse Housing: House Do you presently have visiting nurse or other home services: No Alcohol intake: never Patient Tobacco Use Status: Never used Tobacco e-Cigarette/Vaping Use: Never Used service: Yes Current occupational status: retired 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 Review of Systems Eyes Reports no additional complaints Musc Reports arthralgias Skin/Breast Reports unusual bruising Psych Reports anxiety Physical Exam Vital Signs: Last Vital Signs Pulse 58 02/05/24 08:34 BP 114/60 02/05/24 08:34 Pulse Ox 100 02/05/24 08:34 Oxygen Delivery Method Room Air 02/05/24 08:34 BMI result Body Mass Index 23.9 Const General: cooperative, healthy appearing and comfortable Nutritional Appearance: average body habitus Orientation/consciousness: patient oriented x3 Limitations: ambulation with cane HEENT Head: Yes normocephalic and Yes atraumatic Mouth: Normal oral and palatal mucosa present Resp Effort & Inspection: normal respiratory effort and able to speak in complete sentences Auscultation: clear to auscultation bilaterally Cardio Heart sounds: Murmur heart sound present systolic Skin Other: Some areas of senile purpura Neuro Other: Right footdrop General: patient oriented x3 Extrem Other: Extensive osteoarthritic changes of both hands with bilateral squaring of CMC joint tender to palpation Extensive Heberden's and Carrie's nodes, tender to palpation Left ulnar styloid prominence and tenderness to palpation No right hand MCP tenderness today Left 2nd and 3rd MCP tenderness Bilateral fat atrophy at anatomical snuffbox Assessment & Plan Assessment & Plan (1) Rheumatoid arthritis involving both hands with negative rheumatoid factor: Comment: dx 2018 (low titer +CCP negative on repeat) Methotrexate started 2018 reduced from 15 to 12.5 mg 12/12 due to cytopenias & CKD Code(s): M06.041 - Rheumatoid arthritis without rheumatoid factor, right hand; M06.042 - Rheumatoid arthritis without rheumatoid factor, left hand Plan: 78-year-old male with rheumatoid arthritis, (RF negative, CCP low positive, -ve on repeat) who presents for follow-up. Patient continues to have multiple tender joints on methotrexate 12.5 mg weekly. Discussed risks and benefits of hydroxychloroquine. Patient is agreeable to started. Per patient he was recently evaluated by Dr. Charli rainey and believes he was cleared to start hydroxychloroquine. Will request records from patient's environmental auditor. Start hydroxychloroquine 200 mg Twice daily x5 days a week and 200 mg daily x2 days a week Continue methotrexate 12.5 mg weekly folic acid 3 mg daily Infectious screening hepatitis panel and T spot -ve 2021 Labs before next visit in 4 months (2) Methotrexate, penitentiary, current use: Code(s): Z79.899 - Other penitentiary (current) drug therapy Plan: Monitor safety labs (3) Pseudogout: Code(s): M11.20 - Other chondrocalcinosis, unspecified site Plan: On 08/16/2022 patient presented with acute left wrist pain and swelling which rapidly responded to prednisone.? ?He stated that 10 years ago he had similar pain affecting his right foot.? He also has history of urate kidney stones. I had attempted left wrist arthrocentesis, unfortunately it was a dry tap.? He had another flare 08/2023 which rapidly resolved with steroid taper Repeat uric acid level when not in a flare showed a normal uric acid level.? This seems to be a pseudogout flare.? Will continue to monitor patient clinically.? If patient starts developing recurrent pseudogout flares.? Will consider starting colchicine (4) Osteoporosis: Code(s): M81.0 - Age-related osteoporosis without current pathological fracture Qualifiers: Osteoporosis type: age-related Presence of current pathological fractu re: without current pathological fracture Qualified Code(s): M81.0 - Age- related osteoporosis without current pathological fracture Plan: DEXA shows a T-score-3.0 total left femur. Patient has been getting intra- articular steroid injections for his hand osteoarthritis almost every 3 months for years. This might be a contributing factor. Continue alendronate 70 mg once weekly. Well tolerated. Repeat DEXA scan around 12/14 (5) Osteoarthritis of hands, bilateral: Code(s): M19.041 - Primary osteoarthritis, right hand; M19.042 - Primary osteoarthritis, left hand Qualifiers: Osteoarthritis type: primary Qualified Code(s): M19.041 - Primary osteoarthritis, right hand; M19.042 - Primary osteoarthritis, left hand Plan: Gets bilateral 1st CMC intra-articular steroid injections by Orthopedics every 3 months. Surgery was discussed but patient currently can not do it as he is taking care of his who has Alzheimer's (6) CKD (chronic kidney disease): Code(s): N18.9 - Chronic kidney disease, unspecified Qualifiers: Chronic kidney disease stage: stage 3 (moderate) Chronic kidney disease stage 3 subtype: stage 3b (GFR 30-44) Qualified Code(s): N18.32 - Chronic kidney disease, stage 3b Plan: stable. 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 Plan: Follow-up regularly with environmental auditor Plan I spent 46 minutes reviewing patient's chart, evaluating patient, ordering diagnostic workup, counseling patient and documenting in the chart Orders: Orders C Reactive Protein 4 Months M06.041 - Rheumatoid arthritis without rheumatoid factor, right hand, M06.042 - Rheumatoid arthritis without rheumatoid factor, left hand, Z79.899 - Other penitentiary (current) drug therapy Complete Blood Count Auto Diff 4 Months M06.041 - Rheumatoid arthritis without rheumatoid factor, right hand, M06.042 - Rheumatoid arthritis without rheumatoid factor, left hand, Z79.899 - Other regional 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 Erythrocyte Sedimentation Rate 4 Months M06.041 - Rheumatoid arthritis without rheumatoid factor, right hand, M06.042 - Rheumatoid arthritis without rheumatoid factor, left hand, Z79.899 - Other penitentiary (current) drug therapy Medications: New hydroxychloroquine Take 1 tab twice daily x5 days a week and 1 tab daily x2 days a week 48 tabs 3RF Refilled folic acid 3 mg (3 x 1 mg) PO DAILY 270 tabs 1RF Coding Level of Care Code Est Pt Level 5 (99804) Diagnoses Rheumatoid arthritis involving both hands with negative rheumatoid factor M06.041; M06.042 Methotrexate, regional intermodal truck driver, current use Z79.899 Pseudogout M11.20 Age-related osteoporosis without current pathological fracture M81.0 Osteoporosis type: age-related Presence of current pathological fracture: without current pathological fracture Primary osteoarthritis of both hands M19.041; M19.042 Osteoarthritis type: primary Stage 3b chronic kidney disease N18.32 Chronic kidney disease stage: stage 3 (moderate) Chronic kidney disease stage 3 subtype: stage 3b (GFR 30-44) Long-term use of hydroxychloroquine Z79.899
[2024-02-05 08:34] VITALS: BP 114/60; PULSE 58; O2SAT 100; BMI 23.9
== END 2024-02-05 09:10 | disposition home or self-care (01) ==
PROVIDERS: PCP Physician Assistant Medical; Visit Provider Student in an Organized Health Care Education/Training Program
DX: M06.041 Rheumatoid arthritis without rheumatoid factor, right hand (principal); M06.042 Rheumatoid arthritis without rheumatoid factor, left hand; Z79.899 Other long term (current) drug therapy; M11.20 Other chondrocalcinosis, unspecified site; M81.0 Age-related osteoporosis without current pathological fracture; M19.041 Primary osteoarthritis, right hand; M19.042 Primary osteoarthritis, left hand; N18.32 Chronic kidney disease, stage 3b
CPT/HCPCS: 99215

== ENCOUNTER → 2024-02-05 08:31 | Outpatient (BNVA) | payer MEDICARE, SELFPAY | PROVIDERS: PCP Physician Assistant Medical; Visit Provider Student in an Organized Health Care Education/Training Program | DX: M06.041 Rheumatoid arthritis without rheumatoid factor, right hand (principal); M06.042 Rheumatoid arthritis without rheumatoid factor, left hand; M19.041 Primary osteoarthritis, right hand; M19.042 Primary osteoarthritis, left hand; M11.20 Other chondrocalcinosis, unspecified site; M81.0 Age-related osteoporosis without current pathological fracture; N18.32 Chronic kidney disease, stage 3b; Z79.631 Long term (current) use of antimetabolite agent; Z79.899 Other long term (current) drug therapy | CPT/HCPCS: 99212 ==

== ENCOUNTER 2024-05-24 11:04 | Outpatient (REF) | payer MEDICARE, SELFPAY ==
[2024-05-24 11:24] LABS: MANUAL DIFF FLAG NO
[2024-05-24 11:42] LABS: Basophils Percent Auto 0.3 % (0-2); Eosinophils Percent Auto 0.4 % (0-4); Hematocrit 35.5 % (42.0-52.0); Hemoglobin 11.7 g/dl (14.0-18.0); Imm Gran Abs Auto 0.03 X10*3/uL (0.00-0.03); Imm Gran Pct Auto 0.4 % (0.0-0.4); Lymphocytes Absolute Auto 1.2 X10*3/uL (1.2-4.9); Lymphocytes Percent Auto 16.5 % (20-40); Mean Corpuscular Hemoglobin 34.6 pg (27.0-33.0); Mean Platelet Volume 9.8 fL (9.4-12.4); Monocytes Absolute Auto 0.7 X10*3/uL (0.1-1.2); Monocytes Percent Auto 9.4 % (2-11); Neutrophils Absolute Auto 5.5 x10*3/uL (2.0-8.3); Platelet Count 168 X10*3/uL (160-400); Red Blood Count 3.38 X10*6/uL (4.60-5.80); Red Cell Distribution Width 14.4 % (11.0-16.0); White Blood Count 7.5 X10*3/uL (4.8-10.8)
[2024-05-24 12:09] LABS: Alanine Aminotransferase 22 U/L (0-40); Albumin Level 4.3 g/dL (3.5-5.0); Alkaline Phosphatase 59 U/L (39-117); Anion Gap 11 (12-20); Aspartate Amino Transferase 20 U/L (5-37); Bilirubin Total 0.8 mg/dL (0.0-1.0); Blood Urea Nitrogen 21 mg/dL (9-16); C Reactive Protein < 0.10 mg/dL (< or = 0.50); Calcium 8.8 mg/dL (8.4-10.2); Carbon Dioxide 27 mmol/L (22-29); Chloride 108 mmol/L (96-108); Estimated Glomerular Filt Rate 56; Glucose Random 99 mg/dL (60-115); Potassium 3.9 mmol/L (3.3-5.1); Sodium 142 mmol/L (135-145); Total Protein 6.6 g/dL (6.5-8.0)
[2024-05-24 12:28] LABS: Erythrocyte Sedimentation Rate 10 MM/HR (0-15)
== END 2024-05-24 11:05 | disposition home or self-care (01) ==
LOC: HO.LAB 11:04
PROVIDERS: PCP Physician Assistant Medical; Visit Provider Student in an Organized Health Care Education/Training Program
DX: Z79.899 Other long term (current) drug therapy (principal); M06.041 Rheumatoid arthritis without rheumatoid factor, right hand; M06.042 Rheumatoid arthritis without rheumatoid factor, left hand
CPT/HCPCS: 36415; 80053; 85025; 85652; 86140

== ENCOUNTER 2024-06-03 07:56 | Outpatient (AMB) | payer MEDICARE, SELFPAY ==
--- NOTE | 2024-06-03 08:16 | A.OFFVIS_ITS ---
Vital Signs 06/03/24 08:20 Height 5 ft 8 in Weight 156 lb 11.979 oz BMI 23.8 BP 102/60 Blood Pressure Location Lt brachial Position Sitting Pulse 76 Pulse Source Pulse Oximeter Pulse Oximetry (%) 97 Oxygen Delivery Method Room Air Intake Visit Reasons: RA/CM Intake Note: Patient presents for RA. Allergies sertraline Allergy (Intermediate, Verified 06/03/24 08:18) nausea,dizziness acetaminophen [From Percocet] Allergy (Unknown, Verified 06/03/24 08:18) unknown amoxicillin Allergy (Unknown, Verified 06/03/24 08:18) unknown erythromycin base Allergy (Unknown, Verified 06/03/24 08:18) unknown minocycline Allergy (Unknown, Verified 06/03/24 08:18) unknown oxycodone [From Percocet] Allergy (Unknown, Verified 06/03/24 08:18) unknown polymyxinb tmp Allergy (Intermediate, Uncoded 02/05/24 08:39) swelling, rash Medication List - Last Reconciled 06/03/24 by Analy Enamorado MD alendronate 70 mg PO QWEEK amlodipine 10 mg PO DAILY ammonium lactate 12% appl topical aspirin 81 mg PO DAILY atorvastatin 40 mg PO DAILY 90 days bupropion HCl 100 mg PO BEDTIME bupropion HCl 200 mg PO DAILY carbidopa-levodopa 25-100 mg 1 tab PO .6 x a day diclofenac sodium 1% 4 grams topical QID doxycycline hyclate 100 mg PO BID entacapone 200 mg PO .6 x a day with carbi lisinopril 40 mg PO DAILY lorazepam 0.5 mg PO BEDTIME PRN meloxicam 7.5 mg PO DAILY methotrexate sodium TAKE 5 TABLETS AT SAME TIME ON SAME DAY BY MOUTH ONCE EVERY WEEK metronidazole 0.75% 1 appl topical DAILY mirtazapine 30 mg PO BEDTIME omeprazole 20 mg PO DAILY prednisone 10 mg PO DAILY ropinirole 2 mg PO BID tamsulosin 0.4 mg PO BEDTIME trazodone 50 mg PO BEDTIME PRN HPI Comments Details: 78-year-old male with RA returns for follow-up. On methotrexate 12.5 mg weekly and folic acid 3 mg daily. He started hydroxychloroquine last visit. He did not feel any good effects or side effects. He continues to have similar symptoms of pain across his PIP, bilateral 1st CMC joints, few MCPs. He states that the hand surgeon suggested trigger finger release for the left middle finger and surgery for left 1st CMC joint. Patient is putting it off as his has Alzheimer's and she feels that she is progressing too fast. He has to take care of her at home. He is quite stressed about this. Initial history: This is a 76-year-old male with a complex past medical history including rheumatoid arthritis RF negative, CCP is positive used to see Dr. Mishra who presents for evaluation of rheumatoid arthritis. The condition was diagnosed in 2018 and since then he has been on methotrexate 6 tabs weekly plus folic acid with better control of his RA symptoms. He has not been on methotrexate since November of 2021 as he could not get a prescription. He continues to have pain in both thumbs as well as his fingers. 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 He receives bilateral thumb intra-articular steroid injections every 3 months which gave him about 1 month relief, last injection was 2 months ago. He denies any other joint pain or swelling. About 2 years ago he developed right foot drop, also developed tremors and was diagnosed with Parkinson's by Neurology. For his footdrop he went to physical therapy and was prescribed a brace. The brace helps. But his footdrop has not improved. [facility] Medical History Atherosclerotic cardiovascular disease Gout Footdrop BPH (benign prostatic hyperplasia) Hypertension Diverticulosis Thrombocytopenia Acid reflux Basal cell carcinoma Cholelithiasis Nephrolithiasis PTSD (post-traumatic stress disorder) Parkinsons Osteoarthritis of hands, bilateral Chronic sinus bradycardia Restless leg Seronegative rheumatoid arthritis Dyslipidemia Surgical History S/P cardiac cath S/P trigger finger release Hx of endoscopy S/P TURP Hx of tonsillectomy Hx of lithotripsy Hx of colonoscopy Family History Mother Arthritis Social History Household Members: Spouse Housing: House Do you presently have visiting nurse or other home services: No Alcohol intake: never Patient Tobacco Use Status: Never used Tobacco e-Cigarette/Vaping Use: Never Used service: Yes Current occupational status: retired 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 Review of Systems Eyes Reports no additional complaints Musc Reports arthralgias Psych Reports anxiety Physical Exam Vital Signs: Last Vital Signs Pulse 76 06/03/24 08:20 BP 102/60 06/03/24 08:20 Pulse Ox 97 06/03/24 08:20 Oxygen Delivery Method Room Air 06/03/24 08:20 BMI result Body Mass Index 23.8 Const General: cooperative, healthy appearing and comfortable Nutritional Appearance: average body habitus Orientation/consciousness: patient oriented x3 Limitations: ambulation with cane HEENT Head: Yes normocephalic and Yes atraumatic Mouth: Normal oral and palatal mucosa present Resp Effort & Inspection: normal respiratory effort and able to speak in complete sentences Auscultation: clear to auscultation bilaterally Cardio Heart sounds: Murmur heart sound present systolic Skin Other: Some areas of senile purpura Neuro Other: Right footdrop General: patient oriented x3 Extrem Other: Extensive osteoarthritic changes of both hands with bilateral squaring of CMC joint tender to palpation Extensive Heberden's and Carrie's nodes, tender to palpation No significant tenderness at the MCPs bilaterally Bilateral fat atrophy at anatomical snuffbox Assessment & Plan Assessment & Plan (1) Rheumatoid arthritis involving both hands with negative rheumatoid factor: Comment: dx 2017 (low titer +CCP negative on repeat) Methotrexate started 2017 reduced from 15 to 12.5 mg 12/12 due to cytopenias & CKD HCQ added 01/2024 DC 05/2024 ineffective Code(s): M06.041 - Rheumatoid arthritis without rheumatoid factor, right hand; M06.042 - Rheumatoid arthritis without rheumatoid factor, left hand Category: Medical Plan: 78-year-old male with rheumatoid arthritis, (RF negative, CCP low positive, -ve on repeat) who presents for follow-up. On methotrexate 12.5 mg weekly plus hydroxychloroquine. Hydroxychloroquine was added last visit, not effective I think at this time patient's symptoms are largely related to significant bilateral hand osteoarthritis and would not respond to any additional DMARDs Continue methotrexate 12.5 mg weekly. Patient states that he has to pay for folic acid. Recent labs showed macrocytosis. 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 ?He stated that 10 years ago he had similar pain affecting his right foot.? He also has history of urate kidney stones. I had attempted left wrist arthrocentesis, unfortunately it was a dry tap.? He had another flare 08/2023 which rapidly resolved with steroid taper Repeat uric acid level when not in a flare showed a normal uric acid level.? This seems to be a pseudogout flare.? Will continue to monitor patient clinically.? If patient starts developing recurrent pseudogout flares.? Will consider starting colchicine (4) Osteoporosis: Code(s): M81.0 - Age-related osteoporosis without current pathological fracture Category: Medical Qualifiers: Osteoporosis type: age-related Presence of current pathological fracture: without current pathological fracture Qualified Code(s): M81.0 - Age- related osteoporosis without current pathological fracture Plan: DEXA shows a T-score-3.0 total left femur. Patient has been getting intra- articular steroid injections for his hand osteoarthritis almost every 3 months for years. This might be a contributing factor. Continue alendronate 70 mg once weekly. Well tolerated. Repeat DEXA scan around 12/14 (5) Osteoarthritis of hands, bilateral: Code(s): M19.041 - Primary osteoarthritis, right hand; M19.042 - Primary osteoarthritis, left hand Category: Medical Qualifiers: Osteoarthritis type: primary Qualified Code(s): M19.041 - Primary osteoarthritis, right hand; M19.042 - Primary osteoarthritis, left hand Plan: Gets bilateral 1st CMC intra-articular steroid injections by Orthopedics every 3 months. Surgery was discussed but patient currently can not do it as he is taking care of his who has Alzheimer's (6) CKD (chronic kidney disease): Code(s): N18.9 - Chronic kidney disease, unspecified Category: Medical Qualifiers: Chronic kidney disease stage: stage 3 (moderate) Chronic kidney disease stage 3 subtype: stage 3b (GFR 30-44) Qualified Code(s): N18.32 - Chronic kidney disease, stage 3b Plan: stable. 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 Medications: New leucovorin calcium Take the day after you take methotrexate 10 mg PO QWEEK 12 tabs 1RF Coding Level of Care Code Est Pt Level 5 (10173) Complex EM visit Add On G2211 Diagnoses Rheumatoid arthritis involving both hands with negative rheumatoid factor M06.041; M06.042 Methotrexate, alf, current use Z79.899 Pseudogout M11.20 Age-related osteoporosis without current pathological fracture M81.0 Osteoporosis type: age-related Presence of current pathological fracture: without current pathological fracture Primary osteoarthritis of both hands M19.041; M19.042 Osteoarthritis type: primary Stage 3b chronic kidney disease N18.32 Chronic kidney disease stage: stage 3 (moderate) Chronic kidney disease stage 3 subtype: stage 3b (GFR 30-44)
[2024-06-03 08:20] VITALS: BP 102/60; PULSE 76; O2SAT 97; BMI 23.8
== END 2024-06-03 08:38 | disposition home or self-care (01) ==
PROVIDERS: PCP Physician Assistant Medical; Visit Provider Student in an Organized Health Care Education/Training Program
DX: M06.041 Rheumatoid arthritis without rheumatoid factor, right hand (principal); M06.042 Rheumatoid arthritis without rheumatoid factor, left hand; Z79.899 Other long term (current) drug therapy; M11.20 Other chondrocalcinosis, unspecified site; M81.0 Age-related osteoporosis without current pathological fracture; M19.041 Primary osteoarthritis, right hand; M19.042 Primary osteoarthritis, left hand; N18.32 Chronic kidney disease, stage 3b
CPT/HCPCS: 99215; G2211

== ENCOUNTER → 2024-06-03 07:56 | Outpatient (BNVA) | payer MEDICARE, SELFPAY | PROVIDERS: PCP Physician Assistant Medical; Visit Provider Student in an Organized Health Care Education/Training Program | DX: M06.041 Rheumatoid arthritis without rheumatoid factor, right hand (principal); M06.042 Rheumatoid arthritis without rheumatoid factor, left hand; M19.041 Primary osteoarthritis, right hand; M19.042 Primary osteoarthritis, left hand; M11.20 Other chondrocalcinosis, unspecified site; M81.0 Age-related osteoporosis without current pathological fracture; Z79.899 Other long term (current) drug therapy | CPT/HCPCS: 99212 ==

== ENCOUNTER 2024-07-01 11:04 | Outpatient (AMB) | payer MEDICARE, SELFPAY ==
--- OUTSIDE RECORDS SUMMARY | 2024-07-01 11:06 | XMS_ITS | Continuity of Care Document ---
Author Organization [facility] ter Address [address] [place] [id number]- Care Team Providers Care Burnisher Name Role Phone Adalberto Savage Primary Care Physician Encounter [facility] [place] [facility] [id number] Date(s): 12/16/23 - 12/16/[address] [address] Discharge Disposition: A-D/C Home Attending Physician: Corby Anderson MD Admitting Physician: Corby Anderson MD Referring Physician: Dioni Jacobson MD Allergies, Adverse Reactions, Alerts Substance Reaction Severity Status amoxicillin RASH Active minocycline RASH Active sertraline 1 Persistent Moderate Active erythromycin ophthalmic RASH Acti ve polymyxin B ophthalmic 2 Persistent Moder ate Active Percocet RASH Active oxyCODONE 3 Persistent Moderate Active 1nausea. dizziness 2Burning. Eye Pain 3Rash Medications alendronate 70 mg oral tablet 0 Refills, Maintenance, 05/21/23 13:33:00 EDT, Partial fill upon patient request if the prescription is for a schedule II opioid drug. Start Date: 05/21/23 Status: Ordered Ambien 5 mg oral tablet 1 tablet = 5 mg, By Mouth, Daily at bedtime, PRN for sleep, 0 Refills, Maintenance, 05/14/16 20:27:52, Tablet Start Date: 05/14/16 Status: Ordered atorvastatin 20 mg oral tablet 1 tablet = 20 mg, By Mouth, Daily, 0 Refills, Maintenance, 05/21/23 13:33:00 EDT, Partial fill uponpatient request if the prescription is for a schedule II opioid drug. Start Date: 05/21/23 Status: Ordered BuPROpion = 200 mg, By Mouth, Daily, 0 Refills, Maintenance, 05/21/23 13:36:00 EDT, Partial fill upon patientrequest if the prescription is for a schedule II opioid drug. Start Date: 05/21/23 Status: Ordered BuPROpion = 100 mg, By Mouth, Daily, 0 Refills, Maintenance, 05/21/23 13:37:00 EDT, Partial fill upon patientrequest if the prescription is for a schedule II opioid drug. Start Date: 05/21/23 Status: Ordered carbidopa-levodopa 10 mg-100 mg oral tablet 1 tablet, By Mouth, Every 4 hours, 0 Refills, Maintenance, 05/21/23 13:41:00 EDT, Partial fill uponpatient request if the prescription is for a schedule II opioid drug. Start Date: 05/21/23 Status: Ordered doxycycline hyclate 100 mg oral capsule 1 capsule = 100 mg, By Mouth, Daily, 0 Refills, Maintenance, 05/21/23 13:39:00 EDT, Partial fill upon patient request if the prescription is for a schedule II opioid drug. Start Date: 05/21/23 Status: Ordered folic acid 1 mg oral tablet 1 mg, 1, tablet, By Mouth, Daily, Refills 0, Maintenance, 05/21/23 13:33:00 EDT, Partial fill upon patient request if the prescription is for a schedule II opioid drug. Start Date: 05/21/23 Status: Ordered lisinopril 40 mg oral tablet 1 tablet = 40 mg, By Mouth, Daily, 0 Refills, Maintenance, 05/21/23 13:33:00 EDT, Partial fill uponpatient request if the prescription is for a schedule II opioid drug. Start Date: 05/21/23 Status: Ordered LORazepam 0.5 mg oral tablet 1 tablet = 0.5 mg, By Mouth, Every 8 hours, PRN as needed for anxiety, 0 Refills, Maintenance, 05/21/23 13:38:00 EDT, Partial fill upon patient request if the prescription is for a schedule II opioiddrug. Start Date: 05/21/23 Status: Ordered meloxicam 7.5 mg oral tablet 1 tablet = 7.5 mg, By Mouth, Daily, # 30 tablet, 0 Refills, Maintenance, 03/06/16 11:31:28, Tablet Start Date: 03/06/16 Status: Ordered methotrexate 2.5 mg oral tablet 5 tablet = 12.5 mg, By Mouth, Every Friday, 0 Refills, Maintenance, 05/21/23 13:33:00 EDT, Partial fill upon patient request if the prescription is for a schedule II opioid drug. Start Date: 05/21/23 Status: Ordered omeprazole 20 mg oral enteric coated capsule 0 Refills, Maintenance, 05/29/23 8:22:00 EDT, Partial fill upon patient request if the prescriptionis for a schedule II opioid drug. Start Date: 05/29/23 Status: Ordered Requip 2 mg oral tablet 1 tablet = 2 mg, By Mouth, Daily, at night 1 to 3 hours before bedtime, 0 Refills, Maintenance, 03/06/16 11:33:25 Start Date: 03/06/16 Status: Ordered tamsulosin 0.4 mg oral capsule Refills 0, Maintenance, 05/21/23 13:33:00 EDT, Partial fill upon patient request if the prescription is for a schedule II opioid drug. Start Date: 05/21/23 Status: Ordered Vital Signs Most recent to oldest [Reference Range]: 1 Height 168 cm (12/16/23 8:28 AM) Weight 70.7 kg (12/16/23 8:28 AM) Oxygen Saturation [94-100 %] 96 % (12/16/23 8: AM) Pulse Rate [55-90 bpm] 68 bpm (12/16/23 8: AM) Body Mass Index [18.5-24.99 kg/m2] 25.05 kg/m2 *H* (12/16/23 8:28 AM) Blood Pressure [90-138/55-84 mm Hg] 147/ 68mm Hg *H* (12/16/23 8: AM) Respiratory Rate [16-30 br/min] 18 br/mi n (12/16/23 8: AM) Temperature [96.8-100.4 DegF] 97.8 DegF (12/16/23 8: AM) Mode of Delivery (Oxygen) Room air (12/16/23 8:28 AM) Blood pressure sites Arm, left (12/16/23 8:28 AM) Temperature Route Temporal (12/16/23 8: AM) Dry Weight 70.7 kg (12/16/23 8:28 AM) Weight Obtained Via Standing scale (12/16/23 8:28 AM) Dry Weight Obtained Via Standing scale (12/16/23 8:28 AM) Social History Social History Type Response Smoking Status Never smoker entered on: 06/25/17 Sex Cardiac catheterization study * Event Display: Cardiac Casino Floor Person Report Authored Date: Cardiac Diagnostic Report Demographics Patient Name LIZETH KIRBY Gender Male [employer] Room Number [id number] Height 66.14 inches Date of 1945 Weight 155.87 pounds Age 78 year(s) BSA 1.8 m2 Accession Number [id number] BMI 25.05 kg/m2 Referring Physician Dioni Date of Study 12/16/2023 Kavon KELSEY Performing Physician Corby Anderson MD Fellow Zoey Jung DO Interventional Physician Procedure Procedure Type Diagnostic procedure:Coronary Angiography with [facility] ACC Diagnostic Catheterization Status:Elective Indications Indications: Abnormal stress treadmill study. Clinical History Admission Medications + +------+-------+ + + +---------+ !Medication !Dosage!Times !Last !Last !Administered !Comments ! ! ! !Per Day!Delivery !Delivery ! ! ! ! ! ! !Date !Time ! ! ! + +------+-------+ + + +---------+ !MARIELLA Inhibitor! ! !12/15/2023 !00:00 ! ! ! !(any) ! ! ! ! ! ! ! + +------+-------+ + + +---------+ !Statin (any) ! ! ! ! ! ! ! + +------+-------+ + + +---------+ Clinical Evaluation Leading to Procedure - The patient's CAD presentation was assessed as: Stable angina. 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 Anti-anginal medications were prescribed during the past two weeks. The medication is: Ca channel Blockers. - The reason for the patient's labor relations specialist visit is evaluation of cardiomyopathy and/or evaluation of left ventricular systolic dysfunction. Pharma Nuclear study showed Positive results with High ischemic risk. ACC Risk Factors The patient risk factors include:treated hypercholesterolemia, treated hypertension, last creatinine: 1.4 mg/dl, creatinine clearance: 42.78 ml/min and dyslipidemia. Additional Clinical History:78 year old male with PMH significant for HTN, arthritis, Parkinsons, CKD, HLD, mild aortic stenosis who was found to have low normal LVEF at 52% on echocardiogram with significant LANGFORD and chest tightness with exertion prompting Regadenoson nuclear stress test. Nuclear imaging concerning for mild to moderate intensity anterior wall ischemia. Referred for left heart catheterization and possible PCI. Procedure Data Procedure Date Date: 12/16/2023Start: 10:30End: 11:05 The procedure was explained in detail to the patient. Risks, complications and alternative treatments were reviewed. Written consent was obtained. Entry Locations - Retrograde Percutaneous access was performed through the Right Radial artery (Primary location). A 6 Fr sheath was inserted. Hemostasis was successfully obtained using TR Band. Closure Comments: 12 cc in band. Procedure Medications - Fentanyl I.V. 25 mcg. - Versed (Midazolam) I.V. 0.5 mg. - Lidocaine 2% S.C. Right Wrist 3 ml. - Nitroglycerin I.A. 200 mcg. - Heparin I.V. 3500 units. - 0.9NS I.V. bolus 250 ml. - Fentanyl I.V. 25 mcg. - Versed (Midazolam) I.V. 0.5 mg. - Nitroglycerin I.A. 200 mcg. - Fentanyl I.V. 25 mcg. - Versed (Midazolam) I.V. 0.5 mg. Sedation: My intra-service moderate sedation time was: from 1025 to 1058. Refer to procedural log for detailed chronological information. Contrast Material - Omnipaque 40 ml Diagnostic Catheters - AINFINITI 5F 100 cm JR 4.0was used for: Left heart catheterization. - AINFINITI 5F 100 cm JR 4.0was used for: Right coronary angiography. - AINFINITI 5F 100 cm JR 4.0.Unable to cannulate the vessel. - ADxTerity 5F 100 cm JL 3.5was used for: Left coronary angiography. - ADxTerity 5F 100 cm AR 1.0was used for: Right coronary angiography. Fluoroscopy Time: Diagnostic: 9:09 minutes. Total: 9:09 minutes. Fluoroscopy Dose: Diagnostic: 176 mGy. Total: 176 mGy. Dose Area Product:Diagnostic: 89784 mGy/cm2. Total: 95979 mGy/cm2. Procedure Narrative We accessed the right radial artery using a 6 Chinese slender sheath. We crossed into LV and recorded LVEDP and performed a pullback gradient. Diagnostic angiography with JL 3 5 and AR-1. Mild to moderate coronary artery disease noted. Hemostasis with a regular TR band. Angiographic Findings Cardiac Arteries and Lesion Findings LMCA: Normal. LAD: Mild diffuse disease proximal LAD. LCx: Ostial OM1 80% stenosis. Small sized vessel with diffuse disease. For medical management. RCA: Mild luminal irregularities (<30%). Ramus: Large ramus branch with small sidebranch with 80% stenosis. Hemodynamics Condition: Rest O2 Consumption: Estimated: 244.80Heart Rate: 67 bpm Pressures (mmHg) +-----+ + !Site !Pressure ! +-----+ + !LV !102/3 ,6 ! +-----+ + !AO !120/50 (80)! +-----+ + !LV !113/1 ,7 ! +-----+ + !AO !108/49 (74)! +-----+ + Valve Gradients and Areas +------+----+----+----+-----+----+------+ !Valve !Peak!Mean!Area!Index!Flow!Source! +------+----+----+----+-----+----+------+ !Aortic!0 !0 ! ! ! ! ! +------+----+----+----+-----+----+------+ !Aortic!0 !0 ! ! ! ! ! +------+----+----+----+-----+----+------+ Shunts Oxygen Values O2 Consumption 244.8 Interventional Procedure Conclusions Diagnostic Summary 78-year-old gentleman referred to us for abnormal nuclear perfusion imaging. He has background of Parkinson disease. He has been experiencing chest tightness at rest. Chest discomfort does not happen when he is exercising. He does get dyspnea on exertion especially going up stairs. He is referred to us for diagnostic angiography. Hemodynamics: Normal systemic pressures. Normal LVEDP. There is no gradient across aortic valve on pullback. Coronary anatomy: Right dominant circulation. Mild disease in the RCA. Severe stenosis in small branch coming from ramus and in ostial OM1. Both are very small sized vessels. Mild diffuse disease with heavy calcification in proximal LAD. Diagnostic Recommendations Aggressive secondary risk factor modification according to ATP III guidelines. Continue aspirin 81 mg/day indefinitely. Consider evaluation for non-cardiac causes of symptoms. Consider referring to gastroenterology for work up for esophageal dysmotility. Signatures VA LV function assessed . Ejection Fraction - Method: Echocardiography. EF%: 52. * Event Display: Cardiac Casino Floor Person Report Authored Date: Note * Event Display: Hemodynamic Procedure Report Authored Date: * Rosario Angeles RN: PERFORM Event Display: Discharge/Transfer Note Hospital Authored Date: [id number] Nursing Discharge Note Entered On: 12/16/2023 14:49 EST Performed On: 12/16/2023 14:42 EST by Rosario Angeles RN Nursing Discharge Note 2 Discharge Time : 12/16/2023 14:42 EST Discharge Level of Care at Discharge : Home/Residential/Foster Care Patient Left Unit Via : Wheelchair Patient Accompanied Off Unit with : Responsible adult DC Instructions Provided & Signed by Pt : Yes Patient Understands D/C Instructions : Yes Patient Instructions Discharge Signed : Yes Did Pt have Specialty Bed or Wound Vac : No Rosario Angeles RN - 12/16/2023 14:48 EST History and physical note * Event Display: History and Physical Hospital Authored Date: * Event Display: History and Physical Hospital Authored Date: EKG study * Event Display: ECG 12-Lead Authored Date: Please click on pdf link to open report * Event Display: ECG 12-Lead Authored Date: Ventricular Rate: 68 BPM Atrial Rate: 68 BPM P-R Interval: 178 ms QRS Duration: 100 ms Q-T Interval: 424 ms QTC Calculation(Bazett): 450 ms P Poplar: 65 degrees R Poplar: -5 degrees T Poplar: 52 degrees Sinus rhythm with sinus arrhythmia with occasional Premature ventricular complexes Otherwise normal ECG When compared with ECG of 27-JUN-2017 10:00, Premature ventricular complexes are now Present Confirmed by ELMER JOHNSON MD ([id number]) on 12/16/2023 5:10:48 PM [place]: ELMER JOHNSON MD Laboratory * Event Display: Non Lab Results Authored Date: Hospital Progress note * Rosario Angeles RN: PERFORM, SIGN, VERIFY, SIGN Rosario Angeles RN: SIGN, MODIFY Rosario Angeles RN: MODIFY Charlette Onofre RN: SIGN, MODIFY Charlette Onofre RN: MODIFY Event Display: Progress Note Hospital Authored Date: Patient: KOFI STANLEY Age: 78 years Sex: Male : 1945 Associated Diagnoses: None Author: Rosario Angeles RN Findings Narrative/Incidental Pt arrived by stretcher post CC, alert and oriented, denied pain, VSS, TRB to Rt wrist, small hematoma noted, outlined and Erich A. notified. CMS positive, no oozing or bleeding noted. IVF infusing asordered. Call cortes within reach. Pt reminded to not use his Rt arm.. * Charlette Onofre RN: PERFORM Event Display: Progress Note Hospital Authored Date: [id number] 1305- OOB amb to the bathroom and voided large amount of urine. when returned to the chair- air removal from the TR band started and so far, no bleeding and no further change in outlined area of hematoma. + radial pulse R wrist * Rosario Angeles RN: PERFORM Event Display: Progress Note Hospital Authored Date: TRB removed at 1400, no bleeding or oozing, the small hematoma with no changes. Neha A. was here toassess and it is ok to discharge home. VSS, Pt tolerated PO intake well, ambulated without problems, voided without difficulties. Discharge instructions reviewed, understanding verbalized. Pt monitored 30 min after TRB removed, no problems, no complaints Patient Care team information Care Team Personnel Name: Adalberto Savage Position: Reference Physician Member Role: PCP Address: Address: [address] [place] [id number]- Care Team Related Persons Name: BRENDAN STANLEY Address: home [address] [place] [address] Name: MILIND ALANIZ Address: home [address] [place] [address]
--- OUTSIDE RECORDS SUMMARY | 2024-07-01 11:06 | XMS_ITS | Continuity of Care Document ---
Author Organization [facility] ter Address [address] [place] [id number]- Care Team Providers Care Wet Pour Supervisor Name Role Phone Adalberto Savage Primary Care Physician ( [phone] Encounter [facility] ACCT R [id number] Date(s): 02/06/24 - 02/06/[address] [address]- Discharge Disposition: A-D/C Home Attending Physician: Leobardo Goodman MD Admitting Physician: Leobardo Goodman MD Referring Physician: Not on Staff, Referring MD Allergies, Adverse Reactions, Alerts Substance Reaction [...] tablet = 12.5 mg, By Mouth, Every Wednesday, 0 Refills, Maintenance, 05/21/23 13:33:00 EDT, Partial [...] opioid drug. Start Date: 05/21/23 Status: Ordered Results Radiology Reports * Exam Date Time Procedure Performing Provider Status 02/06/24 10:30 AM Shoulder Min 2 Views Right Kaur Howe; Auth (Verified) Notes: (Shoulder Min 2 Views Right) Reason For Exam: with Pain;Trauma RESULT: Shoulder Min 2 Views Right Shoulder Min 2 Views Right, 2 views Hx of Present Illness: Fall from standing; Reason: Trauma; with Pain; Clinical Question(s): Fracture COMPARISON: None. FINDINGS: No fractures, dislocation, or suspicious osseous lesions. Mild to moderate osteoarthritis. IMPRESSION: No acute osseous abnormalities. WSN: [id number] Ordering Physician: Alyssa Rangel Dictated By: Lexx Lafleur MD Dictated Date/Time: 02/06/24 10:50 a Reviewed By: Lexx Lafleur MD Signed By: Lexx Lafleur MD Signed Date/Time: 02/06/24 10:50 am Transcribed By: ERNIE Transcribed Date/Time: 02/06/24 10:49 am * Exam Date Time Procedure Performing Provider Status 02/06/24 10:30 AM Wrist Comp Min 3 Views Right Kaur Conway; Auth (Verified) Notes: (Wrist Comp Min 3 Views Right) Reason For Exam: with Pain;Trauma RESULT: Wrist Comp Min 3 Views Right Wrist Comp Min 3 Views Right Hx of Present Illness: Fall from standing; Reason: Trauma; with Pain; Clinical Question(s): Fracture COMPARISON: None. FINDINGS: No acute fracture, dislocation, or suspicious osseous lesions. Moderate osteoarthritis involving the first carpometacarpal joint space. Moderate atherosclerotic arterial calcifications. IMPRESSION: No acute fracture or dislocation is seen. WSN: [id number] Ordering Physician: Alyssa Rangel Dictated By: Lexx Lafleur MD Dictated Date/Time: 02/06/24 10:49 a Reviewed By: Lexx Lafleur MD Signed By: Lexx Lafleur MD Signed Date/Time: 02/06/24 10:49 am Transcribed By: ERNIE Transcribed Date/Time: 02/06/24 10:48 am * Exam Date Time Procedure Performing Provider Status 02/06/24 10:[address] Cervical Spine W/O Contrast Sharon Snowden; Amilcar (Verified) Notes: (CT Cervical Spine W/O Contrast) Reason For Exam: Neck trauma, dangerous injury mechanism;Other: RESULT: CT Cervical Spine W/O Contrast Examination: Noncontrast head CT and noncontrast CT of the cervical spine performed on 02/06/2024. History: Fall from standing. Technique and findings: Noncontrast head CT: Contiguous 5 mm axial images were obtained from the skull base to the vertex without intravenous contrast. A dose modulated weight-based protocol was used. There are no prior similar studies currently available for direct comparison. The visualized sinuses are free from disease. The ventricular system and subarachnoid spaces are within normal limits. There is no intracranial hemorrhage, mass effect, or midline shift. No intra- or extra-axial fluid collections are identified. The osseous structures are unremarkable. Noncontrast CT of the cervical spine: Contiguous axial images were obtained from the skull base through the thoracic inlet without intervenous contrast. Sagittal and coronal reformatted images are provided. A dose modulated weight-based protocol was used. No fractures are demonstrated. There is no malalignment. There is no traumatic disc herniation or epidural hematoma. A calcified granuloma within the left upper lobe is seen. IMPRESSION: There is no acute intracranial abnormality. There is no acute osseous abnormality within the cervical spine. WSN: [id number] Ordering Physician: Alyssa Rangel Dictated By: Khushbu Barnett MD Dictated Date/Time: 02/06/24 10:49 a Reviewed By: Khushbu Barnett MD Signed By: Khushbu Barnett MD Signed Date/Time: 02/06/24 10:49 am Transcribed By: ERNIE Transcribed Date/Time: 02/06/24 10:48 am * Exam Date Time Procedure Performing Provider Status 02/06/24 10:[address] Head/Brain W/O Contrast Sp Heather; Auth (Verified) Notes: (CT Head/Brain W/O Contrast) Reason For Exam: Trauma RESULT: CT Head/Brain W/O Contrast Examination: Noncontrast head CT and noncontrast CT of the cervical spine performed on 02/06/2024. History: Fall from standing. Technique and findings: Noncontrast head CT: Contiguous 5 mm axial images were obtained from the skull base to the vertex without intravenous contrast. A dose modulated weight-based protocol was used. There are no prior similar studies currently available for direct comparison. The visualized sinuses are free from disease. The ventricular system and subarachnoid spaces are within normal limits. There is no intracranial hemorrhage, mass effect, or midline shift. No intra- or extra-axial fluid collections are identified. The osseous structures are unremarkable. Noncontrast CT of the cervical spine: Contiguous axial images were obtained from the skull base through the thoracic inlet without intervenous contrast. Sagittal and coronal reformatted images are provided. A dose modulated weight-based protocol was used. No fractures are demonstrated. There is no malalignment. There is no traumatic disc herniation or epidural hematoma. A calcified granuloma within the left upper lobe is seen. IMPRESSION: There is no acute intracranial abnormality. There is no acute osseous abnormality within the cervical spine. WSN: [id number] Ordering Physician: Alyssa Rangel Dictated By: Khushbu Barnett MD Dictated Date/Time: 02/06/24 10:49 a Reviewed By: Khushbu Barnett MD Signed By: Khusbhu Barnett MD Signed Date/Time: 02/06/24 10:49 am Transcribed By: ERNIE Transcribed Date/Time: 02/06/24 10:48 am * Exam Date Time Procedure Performing Provider Status 02/06/24 10:30 AM Wrist Comp Min 3 Views Left Kaur Howe; Auth (Verified) Notes: (Wrist Comp Min 3 Views Left) Reason For Exam: with Pain;Trauma RESULT: Wrist Comp Min 3 Views Left Wrist Comp Min 3 Views Left Hx of Present Illness: Fall from standing; Reason: Trauma; with Pain; Clinical Question(s): Fracture COMPARISON: None. FINDINGS: No acute fracture or dislocation. Moderate to advanced osteoarthritis involving the first carpometacarpal joint space. Probable bone island proximal pole of the scaphoid. There is moderate atherosclerotic arterial calcifications. IMPRESSION: No acute osseous abnormalities. WSN: [id number] Ordering Physician: Alyssa Rangel Dictated By: Lexx Lafleur MD Dictated Date/Time: 02/06/24 10:48 a Reviewed By: Lexx Lafleur MD Signed By: Lexx Lafleur MD Signed Date/Time: 02/06/24 10:48 am Transcribed By: ERNIE Transcribed Date/Time: 02/06/24 10:47 am * Exam Date Time Procedure Performing Provider Status 02/06/24 10:30 AM Humerus Min 2 Views Left Kaur Howe; Auth (Verified) Notes: (Humerus Min 2 Views Left) Reason For Exam: with Pain;Trauma RESULT: Humerus Min 2 Views Left Humerus Min 2 Views Left, 2 views Hx of Present Illness: Fall from standing; Reason: Trauma; with Pain; Clinical Question(s): Fracture COMPARISON: None. FINDINGS: Diffusely demineralized, no acute fractures or focal osseous lesions. IMPRESSION: No acute osseous abnormalities. WSN: [id number] Ordering Physician: Alyssa Rangel Dictated By: Lexx Lafleur MD Dictated Date/Time: 02/06/24 10:47 a Reviewed By: Lexx Lafleur MD Signed By: Lexx Lafleur MD Signed Date/Time: 02/06/24 10:47 am Transcribed By: ERNIE Transcribed Date/Time: 02/06/24 10:46 am * Exam Date Time Procedure Performing Provider Status 02/06/24 10:30 AM Shoulder Min 2 Views Left Kaur Howe; Auth (Verified) Notes: (Shoulder Min 2 Views Left) Reason For Exam: with Pain;Trauma RESULT: Shoulder Min 2 Views Left Shoulder Min 2 Views Left, 2 views Hx of Present Illness: Fall from standing; Reason: Trauma; with Pain; Clinical Question(s): Fracture COMPARISON: None. FINDINGS: No fracture or dislocation. Mild glenohumeral joint space narrowing and marginal spurring. Mild degenerative changes of the AC joint. The portion of the clavicle included on the exam is normal. No calcification of the rotator cuff. IMPRESSION: Mild degenerative change left shoulder without acute fracture or dislocation seen. WSN: [id number] Ordering Physician: Alyssa Rangel Dictated By: Serafin Manzo MD, V Dictated Date/Time: 02/06/24 10:42 a Reviewed By: Serafin Manzo MD, V Signed By: Serafin Manzo MD, V Signed Date/Time: 02/06/24 10:42 am Transcribed By: ERNIE Transcribed Date/Time: 02/06/24 10:42 am Vital Signs Most recent to oldest [Reference Range]: 1 2 Height 170 cm (02/06/24 11:33 AM) 170 cm (02/06/24 9:16 AM) Weight 69.5 kg (02/06/24:33 AM) 69.5 kg (02/06/24 9:16 AM) Oxygen Saturation [94-100 %] 100 % (02/06/24: AM) Pulse Rate [55-90 bpm] 53 bpm *L* (02/06/24 11:33 AM) 71 bpm (02/06/24 9:16 AM) Body Mass Index [18.5-24.99 kg/m2] 24.05 kg/m2 (02/06/24 11:33 AM) Blood Pressure [90-138/55-84 mm Hg] 141/ 108mm Hg *H* (02/06/24 11:33 AM) 143/83mm Hg *H* (02/06/24 9:16 AM) Respiratory Rate [16-30 br/min] 18 br/mi n (02/06/24 11:33 AM) 18 br/min (02/06/24 9:16 AM) Temperature [96.8-100.4 DegF] 97.9 DegF (02/06/24 11:33 AM) 98.3 DegF (02/06/24 9:16 AM) Mode of Delivery (Oxygen) Room air (02/06/24 11:33 AM) Room air (02/06/24 9:16 AM) Blood pressure sites Arm, right (02/06/24 11:33 AM) Arm, right (02/06/24 9:16 AM) Temperature Route Oral (02/06/24 11:33 AM) Oral (02/06/24 9:16 AM) Dry Weight 69.5 kg (02/06/24 11:33 AM) 69.5 kg (02/06/24 9:16 AM) Weight Obtained Via Patient/family state d (02/06/24 9:16 AM) Dry Weight Obtained Via Patient/family s tated (02/06/24 9:16 AM) Social History Social History Type Response Smoking Status Never smoker entered on: 06/25/17 Sex Note * Alyssa Sepulveda: PERFORM, SIGN, VERIFY Event Display: Patient Education Handout Authored Date: Patient Care team information Care Team Personnel Name: Adalberto Savage Position: Reference Physician Member Role: PCP Address: Address: [address] [place] [address]- Care Team Related Persons Name: BRENDAN STANLEY Address: home [address] [place] [address] Name: MILIND ALANIZ Address: home [address] [place] [address]
--- NOTE | 2024-07-01 11:07 | MHC.OFFWIV ---
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 Patient Tobacco Use Status: Never used Tobacco Allergies sertraline Allergy (Intermediate, Verified 07/01/24 11:11) nausea,dizziness acetaminophen [From Percocet] Allergy (Unknown, Verified 07/01/24 11:11) unknown amoxicillin Allergy (Unknown, Verified 07/01/24 11:11) unknown erythromycin base Allergy (Unknown, Verified 07/01/24 11:11) unknown minocycline Allergy (Unknown, Verified 07/01/24 11:11) unknown oxycodone [From Percocet] Allergy (Unknown, Verified 07/01/24 11:11) unknown polymyxinb tmp Allergy (Intermediate, Uncoded 07/01/24 11:11) swelling, rash Do you need a note to return to daycare/school/sports/work: No HPI HPI Comments History of Present Illness Details Patient is a 78-year-old male sustained a fall yesterday when he tripped over his 's walker. His tried to grab his right arm. He states he sustained a cut to his left lower leg. He denies being on a blood thinner. He states he went to an urgent care last night where they placed a Xeroform on it as well as a pad and a Bandar bandage but the Bandar bandage fell off and he could not get it back on today. He states the wound is still weeping a little bit of blood. He states it is painful to walk on, he also tells me he is up-to-date on his tetanus because he just had 1 5 years ago. He did call his PCP and has an appointment with them tomorrow morning but he is concerned about caring for the wound until then. [facility] Medical History Atherosclerotic cardiovascular disease Gout Footdrop BPH (benign prostatic hyperplasia) Hypertension Diverticulosis Thrombocytopenia Acid reflux Basal cell carcinoma Cholelithiasis Nephrolithiasis PTSD (post-traumatic stress disorder) Parkinsons Osteoarthritis of hands, bilateral Chronic sinus bradycardia Restless leg Seronegative rheumatoid arthritis Dyslipidemia Surgical History S/P cardiac cath S/P trigger finger release Hx of endoscopy S/P TURP Hx of tonsillectomy Hx of lithotripsy Hx of colonoscopy Family History Mother Arthritis Social History Household Members: Spouse Housing: House Do you presently have visiting nurse or other home services: No Alcohol intake: never Patient Tobacco Use Status: Never used Tobacco e-Cigarette/Vaping Use: Never Used service: Yes Current occupational status: retired 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 Review of Systems Const All systems reviewed & are unremarkable except as noted in HPI and below Physical Exam Vital Signs: Last Vital Signs Pulse 63 07/01/24 11:14 BP 118/60 07/01/24 11:14 Pulse Ox 94 07/01/24 11:14 Oxygen Delivery Method Room Air 07/01/24 11:14 BMI result Body Mass Index 23.6 Const Other: Limping gait General: cooperative, healthy appearing, comfortable, no acute distress and well developed Orientation/consciousness: patient oriented x3 HEENT Head: Yes normal to inspection Ears: hearing grossly normal bilaterally General nose exam: Normal external nose present Face and sinus: Yes normal facial exam Eyes General: appearance normal, both eyes and all related structures Neck Neck: Yes normal visual inspection and Yes full ROM Resp Effort & Inspection: normal respiratory effort and able to speak in complete sentences Skin Other: Right forearm hematoma extending from the base of the wrist until the antecubital fossa on the volar side. No signs of infection noted. Left anterior lower extremity has a skin tear approximately 8 cm long, V shaped, Xeroform in place, minimal bloody discharge. No signs of infection noted General skin exam: no rashes or lesions noted Neuro General: patient oriented x3 Extrem General: Yes normal to inspection Left lower extremity: ankle (Posterior medial malleolus tenderness; mid foot, dorsal aspect TTP, NVI) Details: swelling Details: diffusely and normal ROM; no warmth, no abrasions, no lacerations and no ecchymosis Assessment & Plan Assessment & Plan (1) Acute ankle pain: Code(s): M25.579 - Pain in unspecified ankle and joints of unspecified foot Qualifiers: Laterality: left Qualified Code(s): M25.572 - Pain in left ankle and joints of left foot Plan: We will get foot and ankle x-ray to rule out a fracture (2) Fall: Code(s): W19.XXXA - Unspecified fall, initial encounter Qualifiers: Encounter type: initial encounter Qualified Code(s): W19.XXXA - Unspecified fall, initial encounter Plan: Left Xeroform in place, applied nonadherent pad and gauze gave patient extra supplies and recommended he keep his appointment with his PCP tomorrow morning. Tdap up to date per patient Plan see above Orders: Orders XR foot LT min 3V Today M25.579 - Pain in unspecified ankle and joints of unspecified foot, W19.XXXA - Unspecified fall, initial encounter XR ankle LT min 3V Today M25.579 - Pain in unspecified ankle and joints of unspecified foot, W19.XXXA - Unspecified fall, initial encounter Coding Level of Care Code New Pt Level 4 (34737) Diagnoses Acute left ankle pain M25.572 Laterality: left Fall, initial encounter W19.XXXA Encounter type: initial encounter
[2024-07-01 11:14] VITALS: BP 118/60; PULSE 63; O2SAT 94; BMI 23.6
== END 2024-07-01 11:50 | disposition home or self-care (01) ==
PROVIDERS: PCP Physician Assistant Medical; Visit Provider Physician Assistant
DX: M25.572 Pain in left ankle and joints of left foot (principal); W19.XXXA Unspecified fall, initial encounter
CPT/HCPCS: 99204

== ENCOUNTER 2024-07-01 11:36 | Outpatient (REF) | payer MEDICARE, SELFPAY ==
--- NOTE | ~2024-07-01 | XR_ITS ---
EXAMINATION: X-ray left ankle X-ray left foot CLINICAL INFORMATION: Pain of unspecified ankle and foot COMPARISON: None TECHNIQUE: Left foot 3 views. Left ankle 2 views. FINDINGS: Ankle: Mild ankle soft tissue swelling. There are 2 ossifications adjacent to the medial malleolus, measuring 6 mm respectively. These could reflect sequela fracture, of indeterminate age. The appearance suggests this may be subacute/chronic. There is ossification along the lateral malleolus, with linear lucency at its base. This could reflect a sequela fracture, of indeterminate age age. Clinically correlate. Ankle mortise is maintained. Talar dome is intact. No additional acute fractures are identified. Foot:. No visible acute fracture or dislocation. Alignment is anatomic. Tarsal/metatarsal alignment is maintained. Mild hallux valgus. Mild first MTP arthritis... There is degenerative changes in some of the interphalangeal joints of the toes. Chronic appearing ossification adjacent to the fifth metatarsal base. XR/XR ankle LT 2V IMPRESSION: Ankle: 1. Ossifications adjacent to the medial malleolus, suggestive of a fracture of indeterminate age. Clinically correlate. These could be subacute/chronic. 2. Findings along the lateral malleolus could reflect sequela fracture, indeterminate age. Clinically correlate for focal symptoms. Foot: 1. No radiographic evidence of acute fracture or malalignment. 2. Degeneration/arthritis as above. Electronically signed by: James Sutherland MD 07/01/2024 04:40 PM EDT
--- NOTE | ~2024-07-01 | XR_ITS ---
EXAMINATION: X-ray left ankle X-ray left foot CLINICAL INFORMATION: Pain of unspecified ankle and foot COMPARISON: None TECHNIQUE: Left foot 3 views. Left ankle 2 views. FINDINGS: Ankle: Mild ankle soft tissue swelling. There are 2 ossifications adjacent to the medial malleolus, measuring 6 mm respectively. These could reflect sequela fracture, of indeterminate age. The appearance suggests this may be subacute/chronic. There is ossification along the lateral malleolus, with linear lucency at its base. This could reflect a sequela fracture, of indeterminate age age. Clinically correlate. Ankle mortise is maintained. Talar dome is intact. No additional acute fractures are identified. Foot:. No visible acute fracture or dislocation. Alignment is anatomic. Tarsal/metatarsal alignment is maintained. Mild hallux valgus. Mild first MTP arthritis... There is degenerative changes in some of the interphalangeal joints of the toes. Chronic appearing ossification adjacent to the fifth metatarsal base. XR/XR foot LT min 3V IMPRESSION: Ankle: 1. Ossifications adjacent to the medial malleolus, suggestive of a fracture of indeterminate age. Clinically correlate. These could be subacute/chronic. 2. Findings along the lateral malleolus could reflect sequela fracture, indeterminate age. Clinically correlate for focal symptoms. Foot: 1. No radiographic evidence of acute fracture or malalignment. 2. Degeneration/arthritis as above. Electronically signed by: James Sutherland MD 07/01/2024 04:40 PM EDT
== END 2024-07-01 11:37 | disposition home or self-care (01) ==
LOC: HO.HMGCX 11:36
PROVIDERS: PCP Physician Assistant Medical; Visit Provider Physician Assistant
DX: M25.572 Pain in left ankle and joints of left foot (principal); Z91.81 History of falling
CPT/HCPCS: 73600; 73630

== ENCOUNTER 2024-07-02 09:10 | Emergency (ER) | payer MEDICARE, SELFPAY ==
[2024-07-02 09:21] VITALS: BP 114/66; PULSE 57; RESP 17; TEMP 36.5; O2SAT 100; BMI 22.8
--- NOTE | 2024-07-02 10:26 | ED_ITS ---
HPI - General Adult General Chief complaint: Extremity Problem Stated complaint: L foot inj sent by pcp Time Seen by Provider: 07/02/24 09:35 Source: patient Mode of arrival: ambulatory Limitations: no limitations History of Present Illness ED Provider: Abdullahi VELAZQUEZ HPI narrative: 78-year-old male with past medical history of cardiomyopathy, chronic kidney disease, osteoporosis, Parkinson's rheumatoid arthritis, osteoarthritis presents to the ED for evaluation of left leg skin tear that occurred on Friday due to accidentally hitting leg on 's walker. Patient denies hitting head or loss of consciousness. Patient states during that incident was Alzheimer's grabbed his right forearm which caused bruise. Patient denies any blunt trauma to right forearm. Patient denies any chest pain, shortness of breath, abdominal pain, or dizziness. Patient was seen at 2 urgent cares placed nonadhesive stick which did not help with the bleeding primary cancer patient to the ED this morning. Related Data Home Medications ?Medication ?Instructions ?Recorded ?Confirmed amlodipine 10 mg tablet 10 mg PO DAILY 07/11/22 06/03/24 bupropion HCl 100 mg tablet 200 mg PO DAILY 07/11/22 06/03/24 carbidopa 25 mg-levodopa 100 mg 1 tab PO .6 x a day 07/11/22 06/03/24 tablet doxycycline hyclate 100 mg tablet 100 mg PO BID 07/11/22 06/03/24 entacapone 200 mg tablet 200 mg PO .6 x a day with carbi 07/11/22 06/03/24 lisinopril 40 mg tablet 40 mg PO DAILY 07/11/22 06/03/24 meloxicam 7.5 mg tablet 7.5 mg PO DAILY 07/11/22 06/03/24 metronidazole 0.75 % topical cream 1 appl topical DAILY 07/11/22 06/03/24 mirtazapine 30 mg tablet 30 mg PO BEDTIME 07/11/22 06/03/24 omeprazole 20 mg capsule,delayed 20 mg PO DAILY 07/11/22 06/03/24 release ropinirole 2 mg tablet 2 mg PO BID 07/11/22 06/03/24 tamsulosin 0.4 mg capsule 0.4 mg PO BEDTIME 07/11/22 06/03/24 ammonium lactate 12 % topical cream appl topical 11/29/22 06/03/24 trazodone 50 mg tablet 50 mg PO BEDTIME PRN 08/12/23 06/03/24 aspirin 81 mg tablet,delayed 81 mg PO DAILY 12/30/23 06/03/24 release Previous Rx's ?Medication ?Instructions ?Recorded diclofenac sodium 1 % topical gel 4 g topical QID #100 grams 02/12/23 atorvastatin 40 mg tablet 40 mg PO DAILY 90 days #90 tabs 03/04/24 prednisone 10 mg tablet 10 mg PO DAILY #30 tabs 03/24/24 alendronate 70 mg tablet 70 mg PO QWEEK #12 tabs 03/31/24 methotrexate sodium 2.5 mg tablet See Rx Instructions .Route 05/25/24 .COMPLEX #60 tabs leucovorin calcium 10 mg tablet 10 mg PO QWEEK #12 tabs 06/03/24 Allergies Allergy/AdvReac Type Severity Reaction Status Date / Time sertraline Allergy Intermediate nausea,dizz Verified 07/02/24 09:23 iness acetaminophen [From Percocet] Allergy Unknown unknown Verified 07/02/24 09:23 amoxicillin Allergy Unknown unknown Verified 07/02/24 09:23 erythromycin base Allergy Unknown unknown Verified 07/02/24 09:23 minocycline Allergy Unknown unknown Verified 07/02/24 09:23 oxycodone [From Percocet] Allergy Unknown unknown Verified 07/02/24 09:23 polymyxinb tmp Allergy Intermediate swelling, Uncoded 07/01/24 11:11 rash Review of Systems 2 Review of Systems: Left conner skin tear Yes all other systems are reviewed and are negative PMFSH Past Medical History Medical History Atherosclerotic cardiovascular disease Gout Footdrop BPH (benign prostatic hyperplasia) Hypertension Diverticulosis Thrombocytopenia Acid reflux Basal cell carcinoma Cholelithiasis Nephrolithiasis PTSD (post-traumatic stress disorder) Parkinsons Osteoarthritis of hands, bilateral Chronic sinus bradycardia Restless leg Seronegative rheumatoid arthritis Dyslipidemia Surgical History S/P cardiac cath S/P trigger finger release Hx of endoscopy S/P TURP Hx of tonsillectomy Hx of lithotripsy Hx of colonoscopy Family History Family History Mother Arthritis Social History Social History Household Members: Spouse Housing: House Do you presently have visiting nurse or other home services: No Alcohol intake: never Patient Tobacco Use Status: Never used Tobacco e-Cigarette/Vaping Use: Never Used Advance Directives: Yes Advance Directives Information Provided: Yes Advance Directives on File: No service: Yes Current occupational status: retired 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 Physical Exam ED Vital Signs: Vital Signs - 24 hr 07/02/24 09:21 07/02/24 10:51 Temperature 97.7 F 97.7 F Pulse Rate 57 57 Respiratory Rate 17 17 Blood Pressure 114/66 114/66 Pulse Oximetry 100 100 Oxygen Delivery Method Room Air Room Air BMI result Body Mass Index 22.8 Const General: cooperative, healthy appearing, comfortable, no acute distress, well developed, alert, awake and Physically active Orientation/consciousness: patient oriented x3 HENMT Head: Yes normal to inspection, Yes No palpable skull fracture present, Yes normocephalic, Yes atraumatic and No abrasion Eyes General: appearance normal, both eyes and all related structures Neck Neck: Yes normal visual inspection, Yes full ROM, Yes no lymphadenopathy, Yes no meningeal signs, Yes trachea midline, Yes supple, No anterior neck swelling and No tender Chest Chest palpation & inspection: normal inspection of the chest and normal palpation of entire chest wall Resp Effort & Inspection: normal respiratory effort and able to speak in complete sentences Auscultation: clear to auscultation bilaterally Cardio Jugular venous distension: no JVD Heart sounds: S1 normal heart sound present and S2 normal heart sound present GI Inspection: Yes normal to inspection Palpation (GI): Soft to palpation, not firm, nontender, no guarding and not rigid General: No CVA tenderness and Yes no CVA tenderness Back/Spine/Pelvis Back: no CVA tenderness, No CVA tenderness and No back tenderness Skin Other: left tib skin tear General skin exam: no rashes or lesions noted, elasticity normal and turgor normal Neuro General: patient oriented x3, gait normal, tone normal, moves all extremities, Normal light touch and pain sensation, no meningeal signs, no focal motor deficits, CN's II-XI intact bilaterally and normal sensation to monofilament Extrem General: Yes normal to inspection, Yes full ROM and Yes capillary refill normal Shoulder/upper arm images: 2 1. Positive ecchymosis. Negative for tenderness, crepitus, or deformity. Negative for redness. Negative for hotness or coldness. Motor/neuro/vascular exam intact Upper/lower leg/hip images: 2 1. Positive for skin tear. Negative for active bleeding. Negative for hotness, ecchymosis, erythema, or deformity. Motor/neuro/vascular exam intact Psych Appearance: grossly normal, well kempt and not disheveled Medical Decision Making Medical Decision Making MDM Narrative: 78-year-old male presents to ED for evaluation of left leg skin tear. Patient well-appearing. No active bleeding. Skin tear cleaned with sterile saline. Sterile strip placed. Non-stick placed on top of Steri-Strips. New wrap placed. Patient has walker at home. Patient does not have any crepitus, ecchymosis, tenderness or deformity of left lower extremity. As per x-ray fractures are chronic. Not suspecting acute fracture. Patient has follow-up with primary care provider. Patient explained worrisome signs and informed to return to the ED immediately. Xray from [facility] [place] states chronic medial lateral malleolus fractures. Dr. Patel Agree with plan Differential Diagnosis Differential Diagnoses: The differential diagnosis associated with the presentation includes (Skin tear) Admission/Observation Consideration of admission/observation: Escalation of care including admission/observation considered Independent Interpretation Interpretation: Independent Historian Clinical information obtained from an independent historian. History obtained from or confirmed by: Other (Patient) External Record Review External record reviewed: Other Discharge Plan Discharge Clinical Impression: Noninfected skin tear of left leg Patient Disposition: Home, Self-Care Instructions: Steristrips (ED), Laceration Without Closure (ED) Additional Instructions: Recommend follow-up with your primary care provider. Return to the ED immediately for any redness, swelling, bluish black discoloration, pus discharge, foul odor, fever, chills or any other concerning symptoms. I agree with x-ray report malleous fracture fracture is chronic. Presently no need for intervention. You can follow-up with orthopedic clinic if needed. Prescriptions: No Action diclofenac sodium 1 % gel 4 g topical QID Qty: 100 1RF atorvastatin 40 mg tablet 40 mg PO DAILY 90 Days Qty: 90 1RF prednisone 10 mg tablet 10 mg PO DAILY Qty: 30 1RF Rx Instructions: 3 tabs by mouth with breakfast for 3 days then 2 tabs for 3 days then 1 tab daily for 3 days then stop I sent in additional prednisone tablets for patient to use as needed for flares alendronate 70 mg tablet 70 mg PO QWEEK Qty: 12 1RF methotrexate sodium 2.5 mg tablet See Rx Instructions .ROUTE .COMPLEX Qty: 60 0RF Dose Instruction: TAKE 5 TABLETS AT SAME TIME ON SAME DAY BY MOUTH ONCE EVERY WEEK Rx Instructions: TAKE 5 TABLETS AT SAME TIME ON SAME DAY BY MOUTH ONCE EVERY WEEK ammonium lactate 12 % cream topical doxycycline hyclate 100 mg tablet 100 mg PO BID amlodipine 10 mg tablet 10 mg PO DAILY bupropion HCl 100 mg tablet 200 mg PO DAILY carbidopa-levodopa 25-100 mg tablet 1 tab PO .6 x a day omeprazole 20 mg capsule,delayed release(DR/EC) 20 mg PO DAILY ropinirole 2 mg tablet 2 mg PO BID lisinopril 40 mg tablet 40 mg PO DAILY meloxicam 7.5 mg tablet 7.5 mg PO DAILY mirtazapine 30 mg tablet 30 mg PO BEDTIME tamsulosin 0.4 mg capsule 0.4 mg PO BEDTIME metronidazole 0.75 % cream 1 appl topical DAILY entacapone 200 mg tablet 200 mg PO .6 x a day with carbi Rx Instructions: administer at the same time as l-dopa/carbidopa dose trazodone 50 mg tablet 50 mg PO BEDTIME PRN aspirin 81 mg tablet,delayed release (DR/EC) 81 mg PO DAILY leucovorin calcium 10 mg tablet 10 mg PO QWEEK Qty: 12 1RF Rx Instructions: Take the day after you take methotrexate Ref[place]: [facility] [place]Provider Group] (Intermediate age left lateral/medial malleolus fracture) Interventions: ED Discharge Assessment Last Done: 07/02/24 10:51 Discharge Date/Time: 07/02/24 10:52 Print Language: Upper Sorbian
[2024-07-02 10:51] VITALS: BP 114/66; PULSE 57; RESP 17; TEMP 36.5; O2SAT 100
== END 2024-07-02 10:52 | disposition home or self-care (01) ==
PROVIDERS: Emergency Provider Emergency Medicine; PCP Physician Assistant Medical
DX: S81.812A Laceration without foreign body, left lower leg, initial encounter (principal); W22.8XXA Striking against or struck by other objects, initial encounter; Y93.89 Activity, other specified; Y92.9 Unspecified place or not applicable; Y99.9 Unspecified external cause status
CPT/HCPCS: 99282

== ENCOUNTER 2024-07-05 10:21 | Outpatient (AMB) | payer MEDICARE, SELFPAY ==
--- NOTE | 2024-07-05 10:24 | MHC.OFFVIS ---
Vital Signs 07/05/24 10:25 Height 5 ft 8 in Weight 160 lb 7.944 oz BMI 24.4 BP 144/56 H Blood Pressure Location Lt brachial Position Sitting Pulse 48 L Intake Visit Reasons: 6 mth f/up AC Tester Regulator Required: No Accompanied by: Self / Same As Patient Allergies sertraline Allergy (Intermediate, Verified 07/02/24 09:23) nausea,dizziness acetaminophen [From Percocet] Allergy (Unknown, Verified 07/02/24 09:23) unknown amoxicillin Allergy (Unknown, Verified 07/02/24 09:23) unknown erythromycin base Allergy (Unknown, Verified 07/02/24 09:23) unknown minocycline Allergy (Unknown, Verified 07/02/24 09:23) unknown oxycodone [From Percocet] Allergy (Unknown, Verified 07/02/24 09:23) unknown polymyxinb tmp Allergy (Intermediate, Uncoded 07/01/24 11:11) swelling, rash Medication List - Last Reconciled 07/05/24 by Dioni Jacobson MD alendronate 70 mg PO QWEEK amlodipine 10 mg PO DAILY ammonium lactate 12% appl topical aspirin 81 mg PO DAILY atorvastatin 40 mg PO DAILY 90 days bupropion HCl 200 mg PO DAILY carbidopa-levodopa 25-100 mg 1 tab PO .6 x a day diclofenac sodium 1% 4 grams topical QID doxycycline hyclate 100 mg PO BID entacapone 200 mg PO .6 x a day with carbi leucovorin calcium 10 mg PO QWEEK lisinopril 40 mg PO DAILY meloxicam 7.5 mg PO DAILY methotrexate sodium TAKE 5 TABLETS AT SAME TIME ON SAME DAY BY MOUTH ONCE EVERY WEEK metronidazole 0.75% 1 appl topical DAILY omeprazole 20 mg PO DAILY paroxetine HCl (Paxil) 10 mg PO DAILY prednisone 10 mg PO DAILY ropinirole 2 mg PO BID tamsulosin 0.4 mg PO BEDTIME trazodone 100 mg PO BEDTIME PRN HPI Comments Details: Caleb returns for follow-up. In the past, he was having some shortness of breath, but no clear anginal-type chest pains. Echocardiogram with mildly decreased LVEF of around 52%. He also had an abnormal stress test showing anterior wall ischemia. That led to cardiac catheterization. However, no interventions. He also has history of Parkinson's disease. Overall, he feels just about the same as before. No clear-cut angina. [facility] Medical History Atherosclerotic cardiovascular disease Gout Footdrop BPH (benign prostatic hyperplasia) Hypertension Diverticulosis Thrombocytopenia Acid reflux Basal cell carcinoma Cholelithiasis Nephrolithiasis PTSD (post-traumatic stress disorder) Parkinsons Osteoarthritis of hands, bilateral Chronic sinus bradycardia Restless leg Seronegative rheumatoid arthritis Dyslipidemia Surgical History S/P cardiac cath S/P trigger finger release Hx of endoscopy S/P TURP Hx of tonsillectomy Hx of lithotripsy Hx of colonoscopy Family History Mother Arthritis Social History Household Members: Spouse Housing: House Do you presently have visiting nurse or other home services: No Alcohol intake: never Patient Tobacco Use Status: Never used Tobacco e-Cigarette/Vaping Use: Never Used service: Yes Current occupational status: retired 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 Review of Systems Const Denies chills, Denies fatigue, Denies fever(s), Denies weight gain and Denies weight loss ENT Denies dizziness Card Denies chest pain, Denies leg edema, Denies lightheadedness, Denies palpitations, Denies dyspnea on exertion, Denies orthopnea and Denies other Resp Denies cough and Denies dyspnea on exertion GI Denies hematochezia and Denies change in stool character Musc Denies abnormal gait, Denies muscle weakness, Denies numbness, Denies radiating pain into limb and Denies tingling Neuro Denies abnormal gait, Denies dizziness, Denies numbness and Denies tingling Endo Denies fatigue and Denies palpitations Physical Exam Vital Signs: Last Vital Signs Pulse 48 L 07/05/24 10:25 BP 144/56 H 07/05/24 10:25 BMI result Body Mass Index 24.4 Const General: comfortable and no acute distress Orientation/consciousness: patient oriented x3 HEENT Other: Unremarkable Head: Yes normal to inspection Neck Neck: Yes normal visual inspection Chest Chest palpation & inspection: normal inspection of the chest Resp Auscultation: clear to auscultation bilaterally Cardio Palpation: normal PMI Heart sounds: S1 normal heart sound present, S2 normal heart sound present, no gallops, no murmurs and no rubs GI Palpation (GI): Soft to palpation Back/Spine/Pelvis Other: unremarkable Skin General skin exam: no rashes or lesions noted Neuro General: patient oriented x3 Extrem General: Yes normal to inspection Psych Mental Status: mental status grossly normal Office Procedures EKG Details: EKG with sinus bradycardia at 48/Min; no significant ST-T changes and otherwise unremarkable. [place] [id number], Complete Assessment & Plan Assessment & Plan (1) Atherosclerotic cardiovascular disease: Code(s): I25.10 - Atherosclerotic heart disease of [place] coronary artery without angina pectoris Category: Medical (2) Cardiomyopathy: Code(s): I42.9 - Cardiomyopathy, unspecified Category: Medical (3) Valvular heart disease: Code(s): I38 - Endocarditis, valve unspecified Category: Medical Plan Cardiac studies reviewed. Echocardiogram with LVEF of 50%. Moderate aortic valve calcification and mild stenosis. Mild mitral/tricuspid regurgitation. Myocardial perfusion imaging study with [id number] intensity anterior wall ischemia. LVEF was 51%. Cardiac catheterization from 11/2023 with severe stenosis in a small branch from ramus and ostial OM1. Small vessels. Mild diffuse disease with heavy calcification, proximal LAD. Medical management has been recommended. Overall, we can treat for stable coronary disease. Shortness of breath could be multifactorial and could also be related to neurological issues, muscular weakness and deconditioning. Continue aspirin and statins. Blood pressure is borderline today. He remains on lisinopril/amlodipine. Otherwise, we will plan on seeing him back in about 6 months' time. He will call us with any interim concerns. Orders: Orders CA echo transthoracic complete 6 Months I42.9 - Cardiomyopathy, unspecified Coding Level of Care Code Est Pt Level 4 (63980) Diagnoses Atherosclerotic cardiovascular disease I25.10 Cardiomyopathy I42.9 Valvular heart disease I38 CPT Codes EKG - CPT: 51854-[id number], Complete ([id number])
[2024-07-05 10:25] VITALS: BP 144/56; PULSE 48; BMI 24.4
== END 2024-07-05 10:51 | disposition home or self-care (01) ==
PROVIDERS: PCP Physician Assistant Medical; Visit Provider Internal Medicine
DX: I25.10 Atherosclerotic heart disease of native coronary artery without angina pectoris (principal); I42.9 Cardiomyopathy, unspecified; I38 Endocarditis, valve unspecified
CPT/HCPCS: 93010; 99214

== ENCOUNTER → 2024-07-05 10:21 | Outpatient (BNVA) | payer MEDICARE, SELFPAY | PROVIDERS: PCP Physician Assistant Medical; Visit Provider Internal Medicine | DX: G20.A1 Parkinson's disease without dyskinesia, without mention of fluctuations (principal); I25.10 Atherosclerotic heart disease of native coronary artery without angina pectoris; I42.9 Cardiomyopathy, unspecified; I38 Endocarditis, valve unspecified | CPT/HCPCS: 93005; 99212 ==

== ENCOUNTER 2024-07-06 12:34 | Outpatient (AMB) | payer MEDICARE, SELFPAY ==
--- NOTE | 2024-07-06 12:40 | A.OFFVIS_ITS ---
Vital Signs 07/06/24 12:41 BP 130/70 Blood Pressure Location Rt brachial Position Sitting Respiration 16 Pulse 64 Pulse Source Pulse Oximeter Pulse Oximetry (%) 100 Oxygen Delivery Method Room Air Intake Visit Reasons: ENP-Parkinson Intake Note: New pt presents to the office for consultation for Parkinson's. Manager Research Required: No Allergies sertraline Allergy (Intermediate, Verified 07/06/24 12:40) nausea,dizziness acetaminophen [From Percocet] Allergy (Unknown, Verified 07/06/24 12:40) unknown amoxicillin Allergy (Unknown, Verified 07/06/24 12:40) unknown erythromycin base Allergy (Unknown, Verified 07/06/24 12:40) unknown minocycline Allergy (Unknown, Verified 07/06/24 12:40) unknown oxycodone [From Percocet] Allergy (Unknown, Verified 07/06/24 12:40) unknown polymyxinb tmp Allergy (Intermediate, Uncoded 07/06/24 12:40) swelling, rash HPI Comments Details: 78y/o Right handed male comes for further managemnt of Parkinsons disease. He was diagnosed 3 years ago by at [place] and has been under his care until now. He noticed intermittent right hand and leg tremors about 4 years ago and it has progressively worsened since then .The tremors are mostly at rest . He is independent in all ADLS He denies memory issues. Sleep is ok . he reports nightmares related to service in the [place]. vivid dreams , REM behavior disorder. His mood is Ok and he is motivated. 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 His speech is softer and has excessive drooling He has mild to moderate difficulty with hand writing, using utensils, dressing , needs help with shower. His gait is slow and mildly off balance - he has right AFO No dizziness , no double vision . He has mild constipation and mild urgency He has falls- mainly related to his . ON LICENSE OF [facility] Medical History (Updated 07/06/24 @ 13:16 by Areli Mckay MD) 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 Gout Footdrop BPH (benign prostatic hyperplasia) Hypertension Diverticulosis Thrombocytopenia Acid reflux Basal cell carcinoma Cholelithiasis Nephrolithiasis PTSD (post-traumatic stress disorder) Parkinsons Osteoarthritis of hands, bilateral Chronic sinus bradycardia Restless leg Seronegative rheumatoid arthritis Dyslipidemia Surgical History S/P cardiac cath S/P trigger finger release Hx of endoscopy S/P TURP Hx of tonsillectomy Hx of lithotripsy Hx of colonoscopy Family History Mother Arthritis Social History Household Members: Spouse Housing: House Do you presently have visiting nurse or other home services: No Alcohol intake: never Patient Tobacco Use Status: Never used Tobacco e-Cigarette/Vaping Use: Never Used service: Yes Current occupational status: retired 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 Physical Exam Vital Signs: Last Vital Signs Pulse 64 07/06/24 12:41 Resp 16 07/06/24 12:41 BP 130/70 07/06/24 12:41 Pulse Ox 100 07/06/24 12:41 Oxygen Delivery Method Room Air 07/06/24 12:41 Const General: cooperative, healthy appearing and no acute distress Nutritional Appearance: average body habitus Orientation/consciousness: patient oriented x3 HEENT Head: Yes normal to inspection Neck Other: mild antecollis and restricted range of motion Neuro Other: Mild decreased blink and facial expression Voice-dysprosody Right UE high amplitude rest tremors , right leg Intermittent left hand tremors Fine Finger movements - severely decreased primitivo l>R Alternating hand movements - decreased primitivo Hand movements - decreased primitivo Foot taps- decreased primitivo No cog wheel rigidity gait - stooped, mild slowness and decreased arm swing R>L with a cane , weakness of right leg General: patient oriented x3 Cranial nerves: Yes CN's II-XII intact bilaterally, Yes Bilaterally intact EOM present, Yes Normal facial strength present and Yes Midline tongue present Cognition (Neuro): normal cognition Motor exam (neuro): Normal motor muscle tone present throughout Deep tendon reflexes (DTR's): Right triceps reflex intensity grade: 1+, Left triceps reflex intensity grade: 1+, Rt Biceps (C5, C6): 1+, Left biceps reflex intensity grade: 1+, Right brachioradialis reflex intensity grade: 1+, Left brachioradialis reflex intensity grade: 1+, Right patellar reflex intensity grade: 1+ and Left patellar reflex intensity grade: 1+ Coordination: [id number] test normal Assessment & Plan Assessment & Plan (1) Parkinson's disease without dyskinesia: Code(s): G20.A1 - Parkinson's disease without dyskinesia, without mention of fluctuations Category: Medical Plan Continue carbidopa/levodopa 25/100 1 tab 6 times a day and ropinirole 2mg bid will consider switching to long acting ropiniorle during his next visit F/u psychologist Discussed fall prevention. Coding Level of Care Code New Pt Level 4 (84617) Complex EM visit Add On G2211 Diagnoses Parkinson's disease without dyskinesia G20.A1
[2024-07-06 12:41] VITALS: BP 130/70; PULSE 64; RESP 16; O2SAT 100
== END 2024-07-06 13:28 | disposition home or self-care (01) ==
PROVIDERS: PCP Physician Assistant Medical; Visit Provider Psychiatry & Neurology Neurology
DX: G20.A1 Parkinson's disease without dyskinesia, without mention of fluctuations (principal)
CPT/HCPCS: 99204; G2211

== ENCOUNTER → 2024-07-06 12:34 | Outpatient (BNVA) | payer MEDICARE, SELFPAY | PROVIDERS: PCP Physician Assistant Medical; Visit Provider Psychiatry & Neurology Neurology | DX: G20.A1 Parkinson's disease without dyskinesia, without mention of fluctuations (principal) | CPT/HCPCS: 99202 ==

== ENCOUNTER 2024-07-08 10:29 | Outpatient (AMB) | payer MEDICARE, SELFPAY ==
--- NOTE | 2024-07-08 10:31 | AM.OFFWIN_ITS ---
Intake Vital Signs 07/08/24 10:32 Height 5 ft 8 in Weight 160 lb BMI 24.3 BP 126/80 Blood Pressure Location Lt brachial Position Sitting Pulse 90 Pulse Source Pulse Oximeter Temp 98.2 F Temp Source Oral Pulse Oximetry (%) 98 Oxygen Delivery Method Room Air Intake Visit Reasons: EP bleeding on leg still, steri strips not secure Intake Note: pt c/o LT leg wound not healing. Steri strips falling off. Patient Tobacco Use Status: Never used Tobacco Allergies sertraline Allergy (Intermediate, Verified 07/08/24 10:32) nausea,dizziness acetaminophen [From Percocet] Allergy (Unknown, Verified 07/08/24 10:32) unknown amoxicillin Allergy (Unknown, Verified 07/08/24 10:32) unknown erythromycin base Allergy (Unknown, Verified 07/08/24 10:32) unknown minocycline Allergy (Unknown, Verified 07/08/24 10:32) unknown oxycodone [From Percocet] Allergy (Unknown, Verified 07/08/24 10:32) unknown polymyxinb tmp Allergy (Intermediate, Uncoded 07/08/24 10:32) swelling, rash Do you need a note to return to daycare/school/sports/work: No HPI EP bleeding on leg still, steri strips not secure HPI Details This note is constructed using voice recognition software. While every effort has been made to ensure accuracy, drill press operator numerical control errors may have been included. The patient is a 78 year old male who presents to the clinic today with poorly healing wound to left lower extremity. The wound initially occurred when he tripped over his 's walker. He was 1st seen in this clinic and evaluated for ankle pain and provided with wound care instructions, and had followed up with his primary care the next day whom redirected the patient room. The patient has been cleansing the skin daily by running water over it, but not applying any soap. He has been changing the dressing twice daily. He presents today because there is slightly increased tenderness, and he notes that there is some blood appearance to the base of the wound. He denies fever, chills, widespread body aches. [facility] Medical History (Updated 07/06/24 @ 13:16 by Areli Mckay MD) 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 Gout Footdrop BPH (benign prostatic hyperplasia) Hypertension Diverticulosis Thrombocytopenia Acid reflux Basal cell carcinoma Cholelithiasis Nephrolithiasis PTSD (post-traumatic stress disorder) Parkinsons Osteoarthritis of hands, bilateral Chronic sinus bradycardia Restless leg Seronegative rheumatoid arthritis Dyslipidemia Surgical History S/P cardiac cath S/P trigger finger release Hx of endoscopy S/P TURP Hx of tonsillectomy Hx of lithotripsy Hx of colonoscopy Family History Mother Arthritis Social History Household Members: Spouse Housing: House Do you presently have visiting nurse or other home services: No Alcohol intake: never Patient Tobacco Use Status: Never used Tobacco e-Cigarette/Vaping Use: Never Used service: Yes Current occupational status: retired 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 No purulent discharge, has erythema and warmth to the inferior aspect of the wound surrounding it with mild tenderness on palpation. Distal neurovascular exam intact. Wound cleansed with soap and water as part of a demonstration of how to cleanse this at home. Dry sterile dressing applied. General skin exam: elasticity normal and turgor normal Neuro General: patient oriented x3 Psych Appearance: grossly normal Mental Status: mental status grossly normal Speech and movement: Normal speech and movement present Affect: normal affect Assessment & Plan Assessment & Plan (1) Cellulitis: Code(s): L03.90 - Cellulitis, unspecified Qualifiers: Site of cellulitis: extremity Site of cellulitis of extremity: lower extremity Laterality: left Qualified Code(s): L03.116 - Cellulitis of left lower limb Plan: Antimicrobial therapy initiated for patient. Discussed patient's allergy history with amoxicillin, which he reports that he gets a rash and it is very mild. I advised him to monitor for any onset of rash as he may develop it with the cephalexin that was selected. Advised patient to continue with cleansing of the wound including soap and water, as well as making sure to dab dry and change dressing at least daily. Additional dressing supplies provided. Patient has follow up with primary care provider in 8 days, advised him to keep this appointment. Advised that he should follow up with any worsening or lack of improvement after 2 full days of antibiotics. Should he develop fever after onset of use of antibiotics he should also be evaluated in the emergency room as he may require IV antibiotics at that point. Plan See above for full details and plan. Medications: New cephalexin 500 mg PO BID 7 days 14 caps 0RF Coding Level of Care Code Est Pt Level 4 (87406) Diagnoses Cellulitis of left lower extremity L03.116 Site of cellulitis: extremity Site of cellulitis of extremity: lower extremity Laterality: left Time Spent (min) 30
[2024-07-08 10:32] VITALS: BP 126/80; PULSE 90; TEMP 36.8; O2SAT 98; BMI 24.3
== END 2024-07-08 12:41 | disposition home or self-care (01) ==
PROVIDERS: PCP Physician Assistant Medical; Visit Provider Registered Nurse
DX: L03.116 Cellulitis of left lower limb (principal)

== ENCOUNTER → 2024-07-08 10:29 | Outpatient (BNVA) | payer MEDICARE, SELFPAY | PROVIDERS: PCP Physician Assistant Medical | DX: L03.116 Cellulitis of left lower limb (principal) | CPT/HCPCS: 99212 ==

== ENCOUNTER 2024-09-28 11:15 | Outpatient (REF) | payer MEDICARE, SELFPAY ==
[2024-09-28 13:02] LABS: MANUAL DIFF FLAG NO
[2024-09-28 13:09] LABS: Basophils Percent Auto 0.5 % (0-2); Eosinophils Absolute Auto 0.1 X10*3/uL (0.0-0.4); Eosinophils Percent Auto 1.3 % (0-4); Hematocrit 35.6 % (42.0-52.0); Hemoglobin 11.7 g/dl (14.0-18.0); Imm Gran Abs Auto 0.03 X10*3/uL (0.00-0.03); Imm Gran Pct Auto 0.4 % (0.0-0.4); Lymphocytes Absolute Auto 1.3 X10*3/uL (1.2-4.9); Lymphocytes Percent Auto 16.6 % (20-40); Mean Corpuscular HGB Conc 32.9 g/dl (31.0-36.0); Mean Corpuscular Hemoglobin 34.4 pg (27.0-33.0); Mean Corpuscular Volume 104.7 fL (80.0-98.0); Mean Platelet Volume 10.2 fL (9.4-12.4); Monocytes Absolute Auto 0.7 X10*3/uL (0.1-1.2); Monocytes Percent Auto 9.6 % (2-11); Neutrophils Absolute Auto 5.4 x10*3/uL (2.0-8.3); Neutrophils Percent Auto 71.6 % (45-73); Platelet Count 172 X10*3/uL (160-400); Red Cell Distribution Width 13.1 % (11.0-16.0); White Blood Count 7.6 X10*3/uL (4.8-10.8)
[2024-09-28 13:52] LABS: Alanine Aminotransferase 28 U/L (0-40); Albumin Level 4.1 g/dL (3.5-5.0); Alkaline Phosphatase 70 U/L (39-117); Anion Gap 12 (12-20); Aspartate Amino Transferase 36 U/L (5-37); Bilirubin Total 0.7 mg/dL (0.0-1.0); Blood Urea Nitrogen 26 mg/dL (9-16); Calcium 8.8 mg/dL (8.4-10.2); Carbon Dioxide 28 mmol/L (22-29); Chloride 106 mmol/L (96-108); Erythrocyte Sedimentation Rate 27 MM/HR (0-15); Estimated Glomerular Filt Rate 54; Glucose Random 77 mg/dL (60-115); Potassium 4.3 mmol/L (3.3-5.1); Sodium 142 mmol/L (135-145)
[2024-09-28 14:06] LABS: Folate 11.6 ng/mL (> or = 4.0); Vitamin B12 458 pg/mL (200-900)
--- OUTSIDE RECORDS SUMMARY | 2024-09-29 20:41 | XMS_ITS ---
Author Name [facility] Organization Unknown History of Medication Use Medication Directions Dispensed Refills Start Date End Date Stat leucovorin calcium 10 mg tablet TAKE 1 TABLET BY MOUTH EVERY WEEK. TAKE THE DAY AFTER YOU TAKE METHOTREXATE 08/14/2024 9 active cephalexin 500 mg capsule TAKE 1 CAPSULE BY MOUTH TWICE A DAY FOR 7 DAYS 08/14/2024 9 active atorvastatin 40 mg tablet TAKE 1 TABLET BY MOUTH EVERY DAY 04/07/2024 active lisinopril 40 mg tablet 02/28/2024 active prednisone 10 mg tablet PLEASE SEE ATTACHED FOR DETAILED DIRECTIONS 02/28/2024 active hydroxychloroquine 200 mg tablet TAKE 1 TAB TWICE DAILY X5 DAYS A WEEK AND 1 TAB DAILY X2 DAYS A WEEK 02/28/2024 active triamcinolone acetonide 40 mg/mL suspension for injection 02/28/2024 active lidocaine (PF) 10 mg/mL (1 %) injection solution Take 1 mL by injection route. 02/28/2024 active entacapone 02/28/2024 active tamsulosin 0.4 mg capsule TAKE 1 CAPSULE BY MOUTH EVERY DAY AT NIGHT 02/28/2024 active folic acid 1 mg tablet TAKE 3 TABLETS BY MOUTH DAILY 02/28/2024 active carbidopa 02/28/2024 active ropinirole 02/28/2024 active lidocaine (PF) 10 mg/mL (1 %) injection solution 02/28/2024 active trazodone 02/28/2024 active tramadol 50 mg tablet 02/28/2024 active methotrexate sodium 2.5 mg tablet TAKE 5 TABLETS BY MOUTH EVERY WEEK 02/28/2024 active omeprazole 20 mg capsule,delayed release 02/28/2024 a ctive atorvastatin 20 mg tablet 02/28/2024 active ciprofloxacin 500 mg tablet TAKE 1 TABLET BY MOUTH TWICE A DAY 02/28/2024 active mirtazapine 02/28/2024 active meloxicam 02/28/2024 active amlodipine 10 mg tablet 02/28/2024 active doxycycline hyclate 100 mg capsule TAKE 1 CAPSULE BY MOUTH EVERY DAY WITH FOOD 02/28/2024 active alendronate 70 mg tablet TAKE 1 TABLET BY MOUTH EVERY WEEK 02/28/2024 active triamcinolone acetonide 40 mg/mL suspension for injection Take 40 mg by injection route. 02/28/2024 active Allergies Allergen Reaction Severity Comment Documented Date Source Statu s SERTRALINE ENS_AONECT MINOCYCLINE ENS_AONECT PERCOCET ENS_AONECT AMOXICILLIN ENS_AONECT ERYTHROMYCIN BASE ENS_AONECT OXYCODONE ENS_AONECT Problems Problem Status Onset Date Problem Type Date of Resoluti on Source Closed fracture of distal end of radius active 2024-02-26 ProblemAct ENS_AON ECT Arthritis of left glenohumeral joint active 2024-05-13 ProblemAct ENS_AONEC T Osteoarthrosis of the carpometacarpal joint of the thumb active 2024-02-26 ProblemAct ENS_AONECT Triggering of digit active 2024-05-13 ProblemAct ENS_AONECT
== END 2024-09-28 11:16 | disposition home or self-care (01) ==
LOC: HO.HMGCLDS 11:15
PROVIDERS: PCP Physician Assistant Medical; Visit Provider Student in an Organized Health Care Education/Training Program
DX: M06.041 Rheumatoid arthritis without rheumatoid factor, right hand (principal); M06.042 Rheumatoid arthritis without rheumatoid factor, left hand; Z79.899 Other long term (current) drug therapy; D75.89 Other specified diseases of blood and blood-forming organs
CPT/HCPCS: 36415; 80053; 82607; 82746; 85025; 85652; 86140

== ENCOUNTER 2024-10-04 08:05 | Outpatient (AMB) | payer MEDICARE, SELFPAY ==
--- NOTE | 2024-10-04 08:10 | MHC.OFFVIS ---
Vital Signs 10/04/24 08:15 Height 5 ft 8 in Weight 156 lb 8.451 oz BMI 23.8 BP 126/70 Blood Pressure Location Rt brachial Position Sitting Pulse 59 Pulse Source Pulse Oximeter Pulse Oximetry (%) 98 Oxygen Delivery Method Room Air Intake Visit Reasons: RA Intake Note: Patient presents for RA. Allergies sertraline Allergy (Intermediate, Verified 10/04/24 08:14) nausea,dizziness acetaminophen [From Percocet] Allergy (Unknown, Verified 10/04/24 08:14) unknown amoxicillin Allergy (Unknown, Verified 10/04/24 08:14) unknown erythromycin base Allergy (Unknown, Verified 10/04/24 08:14) unknown minocycline Allergy (Unknown, Verified 10/04/24 08:14) unknown oxycodone [From Percocet] Allergy (Unknown, Verified 10/04/24 08:14) unknown polymyxinb tmp Allergy (Intermediate, Uncoded 07/08/24 10:32) swelling, rash Medication List - Last Reconciled 10/04/24 by Analy Enamorado MD alendronate 70 mg PO QWEEK amlodipine 10 mg PO DAILY ammonium lactate 12% appl topical aspirin 81 mg PO DAILY atorvastatin 40 mg PO DAILY 90 days bupropion HCl 200 mg PO DAILY carbidopa-levodopa 25-100 mg 1 tab PO .6 x a day diclofenac sodium 1% 4 grams topical QID doxycycline hyclate 100 mg PO BID entacapone 200 mg PO .6 x a day with carbi leucovorin calcium 20 mg (2 x 10 mg) PO QWEEK lisinopril 40 mg PO DAILY meloxicam 7.5 mg PO DAILY methotrexate sodium 10 mg (4 x 2.5 mg) PO QWEEK metronidazole 0.75% 1 appl topical DAILY omeprazole 20 mg PO DAILY paroxetine HCl (Paxil) 10 mg PO DAILY prednisone 10 mg PO DAILY ropinirole 2 mg PO BID tamsulosin 0.4 mg PO BEDTIME trazodone 100 mg PO BEDTIME PRN HPI Comments Details: 78-year-old male with RA returns for follow-up. On methotrexate 12.5 mg weekly and leucovorin 10 mg once weekly. Patient states that he feels is falling apart, he had a fall at home when he bumped into his , he could not hear her. She has dementia. He injured his left leg, he had a wound that took time to heal. He also fell at home while carrying the laundry bag, he injured his left wrist, he has a wound there, he has a Band-Aid on it. States that it is healing well. His 's dementia is getting worse. Initial history: This is a 76-year-old male with a complex past medical history including rheumatoid arthritis RF negative, CCP is positive used to see Dr. Mishra who presents for evaluation of rheumatoid arthritis. The condition was diagnosed in 2018 and since then he has been on methotrexate 6 tabs weekly plus folic acid with better control of his RA symptoms. He has not been on methotrexate since November of 2021 as he could not get a prescription. He continues to have pain in both thumbs as well as his fingers. 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 He receives bilateral thumb intra-articular steroid injections every 3 months which gave him about 1 month relief, last injection was 2 months ago. He denies any other joint pain or swelling. About 2 years ago he developed right foot drop, also developed tremors and was diagnosed with Parkinson's by Neurology. For his footdrop he went to physical therapy and was prescribed a brace. The brace helps. But his footdrop has not improved. 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 Gout Footdrop BPH (benign prostatic hyperplasia) Hypertension Diverticulosis Thrombocytopenia Acid reflux Basal cell carcinoma Cholelithiasis Nephrolithiasis PTSD (post-traumatic stress disorder) Parkinsons Osteoarthritis of hands, bilateral Chronic sinus bradycardia Restless leg Seronegative rheumatoid arthritis Dyslipidemia Surgical History S/P cardiac cath S/P trigger finger release Hx of endoscopy S/P TURP Hx of tonsillectomy Hx of lithotripsy Hx of colonoscopy Family History Mother Arthritis Social History Household Members: Spouse Housing: House Do you presently have visiting nurse or other home services: No Alcohol intake: never Patient Tobacco Use Status: Never used Tobacco e-Cigarette/Vaping Use: Never Used service: Yes Current occupational status: retired 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 Review of Systems Musc Reports arthralgias Skin/Breast Reports wounds Psych Reports anxiety Physical Exam Vital Signs: Last Vital Signs Pulse 59 10/04/24 08:15 BP 126/70 10/04/24 08:15 Pulse Ox 98 10/04/24 08:15 Oxygen Delivery Method Room Air 10/04/24 08:15 BMI result Body Mass Index 23.8 Const General: cooperative, healthy appearing and comfortable Nutritional Appearance: average body habitus Orientation/consciousness: patient oriented x3 Limitations: ambulation with cane HEENT Head: Yes normocephalic and Yes atraumatic Mouth: Normal oral and palatal mucosa present Resp Effort & Inspection: normal respiratory effort and able to speak in complete sentences Auscultation: clear to auscultation bilaterally Cardio Heart sounds: Murmur heart sound present systolic Skin Other: Some areas of senile purpura Healing Wound on outer aspect of left leg, associated with some bruising, Neuro Other: Right footdrop General: patient oriented x3 Extrem Other: Bilateral wrist tenderness without swelling Bilateral diffuse MCP tenderness Extensive osteoarthritic changes of both hands with bilateral squaring of CMC joint tender to palpation Extensive Heberden's and Carrie's nodes, tender to palpation Bilateral fat atrophy at anatomical snuffbox Assessment & Plan Assessment & Plan (1) Rheumatoid arthritis involving both hands with negative rheumatoid factor: Comment: dx 2017 (low titer +CCP negative on repeat) Methotrexate started 2018 reduced from 15 to 12.5 mg 12/12 due to cytopenias & CKD HCQ added 01/2024 DC 05/2024 ineffective Code(s): M06.041 - Rheumatoid arthritis without rheumatoid factor, right hand; M06.042 - Rheumatoid arthritis without rheumatoid factor, left hand Category: Medical Plan: 78-year-old male with rheumatoid arthritis, (RF negative, CCP low positive, -ve on repeat) who presents for follow-up. On methotrexate 12.5 mg weekly. I think at this time patient's symptoms are largely related to significant bilateral hand osteoarthritis and would not respond to changes in DMARDs. His labs show some anemia with macrocytosis, Reduce his methotrexate to 10 mg weekly Increase leucovorin to 20 mg once weekly. 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 ?He stated that 10 years ago he had similar pain affecting his right foot.? He also has history of urate kidney stones. I had attempted left wrist arthrocentesis, unfortunately it was a dry tap.? He had another flare 08/2023 which rapidly resolved with steroid taper Repeat uric acid level when not in a flare showed a normal uric acid level.? This seems to be a pseudogout flare.? Will continue to monitor patient clinically.? If patient starts developing recurrent pseudogout flares.? Will consider starting colchicine (4) Osteoporosis: Code(s): M81.0 - Age-related osteoporosis without current pathological fracture Category: Medical Qualifiers: Osteoporosis type: age-related Presence of current pathological fracture: without current pathological fracture Qualified Code(s): M81.0 - Age-related osteoporosis without current pathological fracture Plan: DEXA shows a T-score-3.0 total left femur. Patient has been getting intra-articular steroid injections for his hand osteoarthritis almost every 3 months for years. This might be a contributing factor. Continue alendronate 70 mg once weekly. Well tolerated. Repeat DEXA scan around 12/2024 (5) Osteoarthritis of hands, bilateral: Code(s): M19.041 - Primary osteoarthritis, right hand; M19.042 - Primary osteoarthritis, left hand Category: Medical Qualifiers: Osteoarthritis type: primary Qualified Code(s): M19.041 - Primary osteoarthritis, right hand; M19.042 - Primary osteoarthritis, left hand Plan: Gets bilateral 1st CMC intra-articular steroid injections by Orthopedics every 3 months. Surgery was discussed but patient currently can not do it as he is taking care of his who has Alzheimer's (6) CKD (chronic kidney disease): Code(s): N18.9 - Chronic kidney disease, unspecified Category: Medical Qualifiers: Chronic kidney disease stage: stage 3 (moderate) Chronic kidney disease stage 3 subtype: stage 3b (GFR 30-44) Qualified Code(s): N18.32 - Chronic kidney disease, stage 3b Plan: stable. Follow-up with PCP Plan I spent 36 minutes reviewing patient's chart, evaluating patient, ordering diagnostic workup, counseling patient and documenting in the chart Orders: Orders Comprehensive Met. Panel 4 Months M06.041 - Rheumatoid arthritis without rheumatoid factor, right hand, M06.042 - Rheumatoid arthritis without rheumatoid factor, left hand, Z79.899 - Other intermediate (current) drug therapy XR DEXA axial skeleton 12/20/24 M81.0 - Age-related osteoporosis without current pathological fracture Vitamin B12 and Folate 4 Months D64.9 - Anemia, unspecified Transferrin 4 Months D64.9 - Anemia, unspecified Complete Blood Count Auto Diff 4 Months M06.041 - Rheumatoid arthritis without rheumatoid factor, right hand, M06.042 - Rheumatoid arthritis without rheumatoid factor, left hand, Z79.899 - 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 C Reactive Protein 4 Months M06.041 - Rheumatoid arthritis without rheumatoid factor, right hand, M06.042 - Rheumatoid arthritis without rheumatoid factor, left hand, Z79.899 - Other intermediate (current) drug therapy Erythrocyte Sedimentation Rate 4 Months M06.041 - Rheumatoid arthritis without rheumatoid factor, right hand, M06.042 - Rheumatoid arthritis without rheumatoid factor, left hand, Z79.899 - Other intermediate (current) drug therapy Ferritin 4 Months D64.9 - Anemia, unspecified IRON PROFILE 4 Months D64.9 - Anemia, unspecified Medications: Changed From methotrexate sodium 12.5 mg (5 x 2.5 mg) PO QWEEK 60 tabs 0RF To methotrexate sodium 10 mg (4 x 2.5 mg) PO QWEEK 60 tabs 0RF From leucovorin calcium Take the day after you take methotrexate 10 mg PO QWEEK 12 tabs 1RF To leucovorin calcium Take the day after you take methotrexate 20 mg (2 x 10 mg) PO QWEEK 24 tabs 1RF Refilled alendronate 70 mg PO QWEEK 12 tabs 1RF Discontinued cephalexin Discontinued Reason: Patient no longer taking 500 mg PO BID 7 days 14 caps 0RF Coding Level of Care Code Est Pt Level 4 (16112) Complex EM visit Add On G2211 Diagnoses Rheumatoid arthritis involving both hands with negative rheumatoid factor M06.041; M06.042 Methotrexate, intermediate, current use Z79.899 Pseudogout M11.20 Age-related osteoporosis without current pathological fracture M81.0 Osteoporosis type: age-related Presence of current pathological fracture: without current pathological fracture Primary osteoarthritis of both hands M19.041; M19.042 Osteoarthritis type: primary Stage 3b chronic kidney disease N18.32 Chronic kidney disease stage: stage 3 (moderate) Chronic kidney disease stage 3 subtype: stage 3b (GFR 30-44)
[2024-10-04 08:15] VITALS: BP 126/70; PULSE 59; O2SAT 98; BMI 23.8
== END 2024-10-04 09:01 | disposition home or self-care (01) ==
PROVIDERS: PCP Physician Assistant Medical; Visit Provider Student in an Organized Health Care Education/Training Program
DX: M06.041 Rheumatoid arthritis without rheumatoid factor, right hand (principal); M06.042 Rheumatoid arthritis without rheumatoid factor, left hand; Z79.899 Other long term (current) drug therapy; M11.20 Other chondrocalcinosis, unspecified site; M81.0 Age-related osteoporosis without current pathological fracture; M19.041 Primary osteoarthritis, right hand; M19.042 Primary osteoarthritis, left hand; N18.32 Chronic kidney disease, stage 3b
CPT/HCPCS: 99214; G2211

== ENCOUNTER → 2024-10-04 08:05 | Outpatient (BNVA) | payer MEDICARE, SELFPAY | PROVIDERS: PCP Physician Assistant Medical; Visit Provider Student in an Organized Health Care Education/Training Program | DX: M06.041 Rheumatoid arthritis without rheumatoid factor, right hand (principal); M11.20 Other chondrocalcinosis, unspecified site; M81.0 Age-related osteoporosis without current pathological fracture; M19.041 Primary osteoarthritis, right hand; M19.042 Primary osteoarthritis, left hand; M21.379 Foot drop, unspecified foot; N18.32 Chronic kidney disease, stage 3b; D64.9 Anemia, unspecified; Z91.81 History of falling; Z79.899 Other long term (current) drug therapy | CPT/HCPCS: 99212 ==

== ENCOUNTER 2024-11-10 08:26 | Outpatient (REF) | payer MEDICARE, SELFPAY ==
--- NOTE | ~2024-11-10 | MM_ITS ---
EXAMINATION: DXA BONE DENSITY AXIAL HISTORY: Osteoporosis, rheumatoid arthritis TECHNIQUE: [employer] Dual energy absorptiometry (DEXA) of the lumbar spine, total left hip, and femoral neck was performed. COMPARISON: Comparison is made with the prior examination dated 10/10/2022. FINDINGS: The bone mineral density of the lumbar spine is 1.186 with a T-score of -0.3, and a Z-score of 0.8. This represents a BMD change of -5.7% compared to the prior exam. This is statistically significant. The bone mineral density of the left total hip is 0.702 with a T-score of -2.8, and a Z-score of -1.4. This represents BMD change of 5.2% compared to the prior exam. This is statistically significant. The bone mineral density of the left femoral neck is 0.753 with a T-score of -2.4, and a Z-score of -0.7. This represents BMD change of 3.3% compared to the prior exam. MM/XR DEXA axial skeleton IMPRESSION: Based on bone mineral density, and according to World Health Organization (WHO) criteria, the diagnosis is consistent with osteoporosis. All bone density values are in grams per centimeter squared (g/cm2). Statistically, 68% of repeat scans fall within 1 SD (+/- 0.010 g/cm2 for AP spine L1-L4) and 1 SD (+/- 0.012 g/cm2 for femur total) FRAX is a trademark of the [employer] Met[employer] Disease, a World Health Organization (WHO) Collaborating Center. Electronically signed by: Dwight Gtz MD 11/11/2024 07:11 AM [facility]
--- OUTSIDE RECORDS SUMMARY | 2024-11-10 08:38 | XMS_ITS | Clinical Summary ---
Author Organization [facility] Address [address] [place] [address] Phone Care Team Providers Care Patient Experience Coordinator Name Role Phone Adalberto Zepeda Primary Care Provider [phone] Allergies Active Allergy Reactions Criticality Noted Date Comments Amoxicillin Swelling Medium 04/19/2011 Other Reaction(s): Rash/Dermatitis eye swelling Erythromycin Skin Problems High 01/21/2018 Minocycline Other High 12/20/2009 Changed color of skin greenish yellow Oxycodone Rash Medium 12/24/2017 Oxycodone-Acetaminophen Rash Medium 08/25/2024 Polymyxin B Rash Medium 08/16/2019 Sertraline Rash Medium 08/16/2019 Medications Medication Sig Dispensed Refills Start Date End Date Status atorvastatin (LIPITOR) 20 mg tablet Take 1 tablet (20 mg total) by mouth 1 (one) time each day. 02/04/2023 Active buPROPion (WELLBUTRIN) 100 mg tablet Take 1 tablet (100 mg total) by mouth 2 (two) times a day. Active carbidopa-levod opa (SINEMET) 25-100 mg per tablet Take 1 tablet by mouth 6 (six) times a day. 06/09/2020 Active doxycycline (VIBRAMYCIN) 100 mg capsule TAKE 1 CAPSULE BY MOUTH TWICE DAILY IN THE MORNING AND IN THE EVENING WITH FOOD. 12/26/2022 Active doxycycline (ADOXA) 100 mg tablet Take 1 tablet (100 mg total) by mouth 2 (two) times a day. Active entacapone (COMTAN) 200 mg tablet Take 1 tablet (200 mg total) by mouth 6 (six) times a day. 08/02/2022 Active folic acid (FOLVITE) 1 mg tablet Take 1 tablet (1 mg total) by mouth 1 (one) time each day. 05/22/2021 Active hydroxychloroqu ine (PLAQUENIL) 200 mg tablet TAKE 1 TAB TWICE DAILY X5 DAYS A WEEK AND 1 TAB DAILY X2 DAYS A WEEK 02/05/2024 Active ketoconazole (NIZORAL) 2 % cream Apply 1 Application topically 2 (two) times a day. Active lidocaine 0.5% (SOLARCAINE) 0.5 % gel external gel Apply 5 g topically 2 times daily as needed. 08/22/2021 Active lisinopril (PRINIVIL,ZESTR IL) 40 mg tablet Take 1 tablet (40 mg total) by mouth 1 (one) time each day. 02/04/2023 Active LORazepam (ATIVAN) 0.5 mg tablet Take 1 tablet (0.5 mg total) by mouth 1 (one) time each day. 08/02/2022 Active melatonin 3 mg tablet Take 1 tablet (3 mg total) by mouth at bedtime. Active methotrexate 2.5 mg tablet Take 6 tablets (15 mg total) by mouth 1 (one) time per week 10/11/2021 Active mirtazapine (REMERON) 30 mg tablet Take 1 tablet (30 mg total) by mouth at bedtime. Active mupirocin (BACTROBAN) 2 % ointment Apply topically. Active tamsulosin (FLOMAX) 0.4 mg 24 hr capsule Take 1 capsule (0.4 mg total) by mouth 1 (one) time each day. 07/29/2022 Active traZODone (DESYREL) 50 mg tablet Take 1 tablet (50 mg total) by mouth. Active buPROPion HCL, bulk, 100 % powder Take 200 mg by mouth. Active meloxicam, bulk, 100 % powder Take 15 mg by mouth 1 (one) time each day. Active predniSONE (DELTASONE) 10 mg tablet Take by mouth 1 (one) time each day with breakfast. Active alendronate (FOSAMAX) 70 mg tablet Take 1 tablet (70 mg total) by mouth. Active aspirin 81 mg capsule Take by mouth. Active PARoxetine (PAXIL) 10 mg tablet Take 1 tablet (10 mg total) by mouth 1 (one) time each day in the morning. Active rOPINIRole (REQUIP) 2 mg tablet Take 1 tablet (2 mg total) by mouth. 05/25/2019 Active traMADoL (ULTRAM) 50 mg tablet Take 1 tablet (50 mg total) by mouth. 08/06/2024 Active leucovorin 10 mg tablet TAKE 1 TABLET BY MOUTH EVERY WEEK. TAKE THE DAY AFTER YOU TAKE METHOTREXATE 06/03/2024 Active amLODIPine (NORVASC) 5 mg tablet Take 1 tablet (5 mg total) by mouth 1 (one) time each day. 90 tablet 1 08/30/2024 Active omeprazole (PriLOSEC) [address] capsule TAKE 1 CAPSULE TWICE DAILY 180 capsule 1 10/19/2024 Active omeprazole (PriLOSEC) [address] capsule Take 1 capsule (20 mg total) by mouth 2 (two) times a day. 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 Benign prostatic hyperplasia without lower urinary tract symptoms 12/24/2017 Bradycardia 12/24/2017 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 12/24/2017 Weight loss 12/24/2017 Renal cyst 03/24/2012 Overview (07/14/2024): thomas 01/28 f/up in 1 year advised Encounters Date Type Department Care Team Description 09/08/2024 9:30 AM EST Office Visit [facility] [address] [place] [phone] Dorcas Mina, [employer] ADVIS[employer] Non-pressure chronic ulcer of other part of left lower leg limited to breakdown of skin (CMS/HCC) (Primary Dx) 09/02/2024 11:00 AM EST Office Visit [facility] [address] [place] [phone] Zak Yi MD Chronic venous hypertension (idiopathic) with inflammation of left lower extremity (Primary Dx); Non-pressure chronic ulcer of other part of left lower leg limited to breakdown of skin (CMS/HCC) 08/25/2024 10:00 AM EST Office Visit [facility] [address] [place] [phone] Dorcas Mina NP Chronic venous hypertension (idiopathic) with inflammation of left lower extremity (Primary Dx); Non-pressure chronic ulcer of other part of left lower leg limited to breakdown of skin (CMS/HCC); Wound infection 08/18/2024 3:52 PM EDT - 08/18/2024 11:59 PM EDT Hospital Encounter [facility] [address] [place] [phone] Dorcas Mina NP Discharge Disposition: Home or Self Care from Last 3 Months Immunizations Name Administration Dates Next Due Pfizer SARS-CoV-2 COVID-19, mRNA, LNP-S, preservative free 07/01/2022,12/10/2020,11/19/2020 Surgical History Surgery Date Site/Laterality Comments PROSTATE SURGERY PROCEDURE:PROSTATE SURGERY COLONOSCOPY PROCEDURE:COLONOSCOPY TONSILLECTOMY PROCEDURE: HISTORICAL TONSILLECTOMY LITHOTRIPSY PROCEDURE: HISTORICAL LITHOTRIPSY; COMMENT: laser stone remove x multiple john TURP / TRANSURETHRAL INCISIO N / DRAINAGE PROSTATE PROCEDURE: HISTORICAL TURP; COMMENT: dr. john 2017 COLONOSCOPY 10/24/2008 PROCEDURE: HISTORICAL COLONOSCOPY; COMMENT: diverticulosis COLONOSCOPY 02/27/2018 PROCEDURE: HISTORICAL COLONOSCOPY; COMMENT: Diverticulosis; otherwise negative examination. UPPER GASTROINTESTINAL ENDOSCOPY 02/27/2018 PROCEDURE: CO UPPER GI ENDOSCOPY PERFORMED; COMMENT: Normal upper GI findings, performed for the evaluation of extra mammary Paget's disease. Medical History Medical History Date Comments S/P Turp DX:S/P TURP Enlarged prostate DX:Enlarged pr ostate Hypertrophy (benign) of prostate DX:Hypertrophy (benign) of prostate Other specified disease of h air and hair follicles 09/23/2005 DX:Other specified disease o f hair and hair follicles Diverticulosis of colon (wit hout mention of hemorrhage) 10/24/2008 DX:Diverticulosis of colon ( without mention of hemorrhage); COMMENT: Incidental finding at colonoscopy 10/24/2008. Special screening for malign ant neoplasms, colon 10/24/2008 DX:Special screening for mal ignant neoplasms, colon; COMMENT: Negative colonoscopy 10/24/2008, no colon cancer screening needed for 10 years. 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) 11/27/2018 DX:Seronegative rheumatoid a rthritis of multiple sites (HCC) Parkinson's disease (CMS/HCC) 09/27/2019 DX :Parkinson's disease (HCC) Osteoarthritis of both hands 06/09/2020 DX: Osteoarthritis of both hands PTSD (post-traumatic stress disorder) Major depressive disorder Family History Medical History Relation Name Comments Diabetes Brother Hypertension Brother Stroke Brother Kidney failure Father Arthritis Mother said to have RA Heart failure Mother Other cancer Neg Hx no relatives wi th any cancer Relation Name Status Comments Brother Alive htn,cva Father (Age 52) renal fail ure Mother (Age 89) chf Social History Tobacco Use Types Packs/Day Years Used Date Smoking Tobacco: Never Smokeless Tobacco: Never Tobacco Cessation:Counseling Given: Not Answered Alcohol Use Standard Drinks/Week Comments Not Asked 0 (1 standard drink = 0.6 oz pur e alcohol) Sex and Gender Information Value Date Recorded Sex Assigned at Not on file Gender Identity Not on file Sexual Orientation Not on file Job Start Date Occupation Industry Not on file Not on file Not on file Obstetrics History Last Filed Vital Signs Vital Sign Reading Time Taken Comments Blood Pressure 126/56 09/08/2024 9:36 AM EST Pulse 62 09/08/2024 9:36 AM EST Temperature 36.5 ??C (97.7 ??F) 09/08/2024 9:36 AM ES T Respiratory Rate 18 09/08/2024 9:36 AM EST Oxygen Saturation 99% 09/08/2024 9:36 AM EST Inhaled Oxygen Concentration - - Weight 68.5 kg (151 lb) 09/08/2024 9:36 AM EST Height 175.3 cm (5' 9 ) 09/08/2024 9:36 AM EST Body Mass Index 22.3 09/08/2024 9:36 AM EST Plan of Treatment Upcoming Encounters Date Type Department Care Team (Late st Contact Info) Description 05/24/2025 9:30 AM EDT Office Visit [facility] [address] [place] [phone] Katja Lainez MD [address] [place] [phone] Health Maintenance Due Date Last Done Comments RSV Immunization Patients 60+ Years Old (1 - 1-dose 75+ series) 2019 Depression Screening 09/28/2022 Falls Risk Assessment 09/28/2022 Hepatitis C Screening 09/28/2022 Medicare Annual Wellness Visit 09/28/2022 Social Influencers of Health Screening 09/28/2022 COVID-19 Vaccine ( season) 2024 07/01/2022, 07/18/2021, 12/10/2020, Additional history exists Hypertension/CHF/CAD Annual BMP Blood Test 08/04/2025 08/04/2024 Cholesterol Screening (Lipid Panel) 08/04/2029 08/04/2024 DTaP,Tdap,and Td Vaccines (7 - Td or Tdap) 08/06/2033 08/06/2023, 04/02/2013, 04/02/2013, Additional history exists Zoster Vaccines Completed 06/26/2023, 02/17, 03/30/2013 Influenza Vaccine Completed 07/02/2024, , 08/06/2023, Additional history exists Pneumococcal Vaccine: 65+ Years Completed 08/10/2024, 07/20/2016, 02/26/2016, Additional history exists HIB Vaccines Aged Out No longer eligi ble based on patient's age to complete this topic HPV Vaccines Aged Out No longer eligi ble based on patient's age to complete this topic Hepatitis A Vaccines Aged Out No long er eligible based on patient's age to complete this topic Hepatitis B Vaccines Aged Out No long er eligible based on patient's age to complete this topic IPV Vaccines Aged Out No longer eligi ble based on patient's age to complete this topic MMR Vaccines Aged Out No longer eligi ble based on patient's age to complete this topic Meningococcal ACWY Vaccine Aged Out N o longer eligible based on patient's age to complete this topic RSV Immunization Patients Under 20 months Aged Out No longer eligible based on patient's age to complete this topic Varicella Vaccines Aged Out No longer eligible based on patient's age to complete this topic Goals Goal Patient Goal Type Associated Problems Recent Progress Patient-Stated? Author Wound volume breakdown reduced by X% by week 4 Care Plan Impaired Tissue No Kusum Messina RN Wound volume breakdown reduced by X% by week 8 Care Plan Impaired Tissue No Kusum Messina RN Wound volume breakdown reduced by X% by week 12 Care Plan Impaired Tissue No Kusum Messina RN Quit using tobacco (cigarettes, smokeless, etc) Care Plan Education needed on impact of smoking on wound Kusum Santacruz RN Reduce tobacco use (cigarettes, smokeless, etc) Care Plan Education needed on impact of smoking on wound No Kusum Messina RN Decrease Wound Volume by X% by date (in notes) Care Plan Education needed on impact of smoking on wound No Kusum Messina RN Patient and Caregiver Understand Wound Care Education Care Plan Education needed related to ulceration/compr omised skin integrity. No Kusum Messina RN Procedures Procedure Name Priority Date/Time Associated Diagnosis Comments CULTURE WOUND DEEP Routine 08/25/2024 11 :56 AM EST Chronic venous hypertension (idiopathic) with inflammation of left lower extremity Non-pressure chronic ulcer of other part of left lower leg limited to breakdown of skin (CMS/HCC) Wound infection from Last 3 Months Results * (ABNORMAL) Culture wound deep (08/25/2024 11:56 AM EST) Culture, Wound Methicillin-Sensiti ve Staphylococcus aureus(A) OLGA 08/28/2024 10:41 AM EST [facility] Comment: The organism value for this result has been updated. These results have been appended to the previously preliminary verified report. Edited result: Previously reported as Staphylococcus aureus on 08/27/2024 at 1338 EST. Gram Stain Result Rare Polymorphonuclear leukocytes(A) OLGA 08/28/2024 10:41 AM EST [facility] Gram Stain Result No epithelial cells seen(A) 08/28/2024 10:41 AM EST [facility] Gram Stain Result Few Gram positive cocci(A) 08/28/2024 10:41 AM EST [facility] Swab Structure of left lower limb / Unknown Non-blood Collection / Unknown 08/25/2024 11:56 AM EST 08/25/2024 4:25 PM EST Narrative Organism Antibiotic Method Susceptibility Methicillin-Sensitive Staphylococcus aureus Benzylpenicillin OLGA >=0.5 ug/ml: Resistant Methicillin-Sensitive Staphylococcus aureus Oxacillin OLGA 0.5 ug/ml: Susceptible Methicillin-Sensitive Staphylococcus aureus Gentamicin OLGA <=0.5 ug/ml: Susceptible Methicillin-Sensitive Staphylococcus aureus Ciprofloxacin OLGA <=0.5 ug/ml: Susceptible Methicillin-Sensitive Staphylococcus aureus Levofloxacin OLGA <=0.12 ug/ml: Susceptible Methicillin-Sensitive Staphylococcus aureus Moxifloxacin OLGA <=0.25 ug/ml: Susceptible Methicillin-Sensitive Staphylococcus aureus Erythromycin OLGA >=8 ug/ml: Resistant Methicillin-Sensitive Staphylococcus aureus Clindamycin OLGA >=8 ug/ml: Resistant Methicillin-Sensitive Staphylococcus aureus Quinupristin/Dalfopristin OLGA <=0.25 ug/ml: Susceptible Methicillin-Sensitive Staphylococcus aureus Linezolid OLGA 2 ug/ml: Susceptible Methicillin-Sensitive Staphylococcus aureus Vancomycin OLGA 1 ug/ml: Susceptible Methicillin-Sensitive Staphylococcus aureus Tetracycline OLGA >=16 ug/ml: Resistant Methicillin-Sensitive Staphylococcus aureus Rifampin OLGA <=0.5 ug/ml: Susceptible Methicillin-Sensitive Staphylococcus aureus Trimethoprim/Sulfamethoxazo le OLGA 160 ug/ml: Resistant Dorcas Mina NP LAB MICROBIOLOGY - G ENERAL ORDERABLES [facility] [address] [place] [address], from Last 3 Months Additional Health Concerns Active Problems Noted Date Diagnosed Date Impaired Tissue 09/02/2024 Education needed on impact of smoking on wound 1 11/02/2023 Education needed related to ulceration/compromised skin integrity. 09/02/2024 Advance Directives Documents on File Type Date Recorded Patient Registered Nurse Float Pool Expl anation Health Care Decision (hx) 01/07/2018 AD UP DIRECTIVE Health Care Decision (hx) 01/07/2018 AD UP DIRECTIVE Care Teams Patient Experience Coordinator Relationship Specialty Start Date End Date Adalberto Zepeda PA [address] [place] [address] PCP - General Internal Medicine 08/18/24
--- OUTSIDE RECORDS SUMMARY | 2024-11-10 08:38 | XMS_ITS | Clinical Summary ---
Author Organization [facility] Address [address] [place] [address] Care Team Providers Care Director Of Golf Name Role Phone Adalberto Zepeda PA-C Primary Care Provider Allergies Active Allergy Reactions Criticality Noted Date Comments Amoxicillin 12/24/2017 Erythromycin 01/21/2018 Minocycline 01/21/2018 Oxycodone 12/24/2017 Polymyxin B 08/16/2019 Sertraline 08/16/2019 Medications Medication Sig Dispensed Refills Start Date End Date Status lisinopril (PRINIVIL,ZESTRIL) tablet 40 mg Take 1 tablet (40 mg total) by mouth daily. 0 Active MELOXICAM PO Take 15 mg by mouth daily. 0 Active mupirocin (BACTROBAN) 2 % ointment Apply topically 3 (three) times a day. 0 Active omeprazole (PRILOSEC) 20 MG capsule Take 1 capsule (20 mg total) by mouth daily. 0 Active amLODIPine (NORVASC) tablet 5 mg Take 1 tablet (5 mg total) by mouth daily. 0 Active folic acid (FOLVITE) tablet 1 mg Take 1 tablet (1 mg total) by mouth daily. 0 Active ketoconazole (NIZORAL) 2 % cream Apply 1 application topically 2 (two) times a day. 0 Active methotrexate 2.5 MG tablet Take 6 tablets (15 mg total) by mouth every 7 days. 0 Active mirtazapine (REMERON) 30 MG tablet Take 1 tablet (30 mg total) by mouth every night at bedtime. 0 Active atorvastatin (LIPITOR) tablet 20 mg Take 2 tablets (40 mg total) by mouth daily. 0 Active melatonin 3 MG TABS tablet Take 1 tablet (3 mg total) by mouth every night at bedtime. 0 Active Lidocaine 0.5 % GEL Apply 5 g topically 2 (two) times a day as needed. 170 g 1 08/22/2021 Active doxycycline (ADOXA) 100 MG tablet Take 1 tablet (100 mg total) by mouth 2 (two) times a day. 0 Active buPROPion (WELLBUTRIN) 100 MG tablet Take 1 tablet (100 mg total) by mouth 2 (two) times a day. 0 Active BUPROPION HCL PO Take 200 mg by mouth. 0 Active carbidopa-levodopa (SINEMET) 25-100 MG per tablet Take by mouth 3 (three) times a day. 0 Active LORazepam (ATIVAN) 0.5 MG tablet Take 1 tablet (0.5 mg total) by mouth every 6 (six) hours as needed. 0 Active entacapone (COMTAN) 200 MG tablet Take 1 tablet (200 mg total) by mouth 3 (three) times a day. 0 Active traZODone (DESYREL) 50 MG tablet Take 1 tablet (50 mg total) by mouth every night at bedtime. 0 Active tamsulosin (FLOMAX) 0.4 MG CAPS Take 1 capsule (0.4 mg total) by mouth daily. 0 Active hydroxychloroquine (PLAQUENIL) 200 MG tablet Take 1 tablet (200 mg total) by mouth 2 (two) times a day. 0 Active predniSONE (DELTASONE) tablet 10 mg Take by mouth every morning with breakfast. 0 Active Aspirin 81 MG CAPS Take by mouth. 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 Social History Tobacco Use Types Packs/Day Years Used Date Smoking Tobacco: Never Smokeless Tobacco: Never Alcohol Use Standard Drinks/Week Comments No 0 (1 standard drink = 0.6 oz pur e alcohol) Sex and Gender Information Value Date Recorded Sex Assigned at Not on file Gender Identity Not on file Sexual Orientation Not on file Job Start Date Occupation Industry Not on file Not on file Not on file Last Filed Vital Signs Vital Sign Reading Time Taken Comments Blood Pressure 133/69 05/24/2024 9:28 AM EDT Pulse 52 05/24/2024 9:28 AM EDT Temperature 36.9 ??C (98.4 ??F) 05/24/2024 9:28 AM ED T Respiratory Rate - - Oxygen Saturation 99% 05/24/2024 9:28 AM EDT Inhaled Oxygen Concentration - - Weight 70.2 kg (154 lb 12.8 oz) 05/24/2024 9:28 AM EDT Height 170.2 cm (5' 7 ) 08/15/2021 9:18 AM EDT Body Mass Index 24.25 08/15/2021 9:18 AM EDT Plan of Treatment Health Maintenance Due Date Last Done Comments Depression Screening 1957 Preventative Health Evaluation 1962 Fall Risk Assessment 2009 RSV Adult > 60+ Yrs or (1 - 1-dose 75+ series) 2019 DTap / Tdap / Td (5 - Td or Tdap) 04/02/2023 04/02/2013, 04/02/2013, 04/02/2013, Additional history exists COVID-19 Vaccine ( season) 2024 07/01/2022, 07/18/2021, 12/10/2020, Additional history exists Influenza Vaccine (#1) 2024 , 08/02/2022, 08/21/2021, Additional history exists Pneumococcal Vaccine Completed 07/20/2016, 02/26/2016, 12/20/2009, Additional history exists Shingrix-Zoster Vaccine Completed 06/26/2023, 03/07 Hepatitis B Vaccines Aged Out No long er eligible based on patient's age to complete this topic RSV Ped < 20 months Aged Out No longe r eligible based on patient's age to complete this topic Care Teams Director Of Golf Relationship Specialty Start Date End Date Adalberto Zepeda, [facility] PCP - General Medical Services 08/15/21
--- OUTSIDE RECORDS SUMMARY | 2024-11-10 08:38 | XMS_ITS | Data Portability ---
Author Organization [place] [facility] Steph Meyer AONE [place] Address [address] [place] [address] Care Team Providers Care [employer] Practitioner Name Role Phone JENNIFER ESPOSITO Referring Provider JENNIFER Palacios Primary Care Provider Assessment Encounter Date Assessment Date Assessment LastModified by Organization Details LastModified Time 02/26/2024 02/26/2024 The above findin gs were discussed in detail today with the patient. He has evidence of a nondisplaced intra-articular distal radius fracture, 3 weeks from injury. He also has thumb CMC arthritis. Pathology and expected prognosis were discussed with the patient today. Treatment options include continue to treat this nonoperatively, this would be in the form of a splint for 1 more week full-time and then start to wean out of the splint. He can work on finger range of motion. When he comes to the splint he can work on wrist range of motion. He will be nonweightbearing anything heavier than 5 or 10 pounds for 3 more weeks. He will then start progressive weightbearing. His thumb CMC joint has started to become symptomatic for him, he had an injection last in December however I do believe that the fall aggravated his arthritis. We discussed treatment options which include continuing conservative management with splinting, or a steroid injection today. He like a steroid injection today. Risk and benefits of steroid injection were discussed with the patient today. He understands these and would like to proceed. He tolerated the procedure well. I will see him back for follow-up in 4 weeks. All of his questions were answered, he is in agreement the plan. Not available 02/26/2024 13:07:56 04/01/2024 04/01/2024 The above findin gs were discussed in detail today with the patient. He is about 8 weeks from a left nondisplaced intra articular distal radius fracture being treated nonoperatively. At this point he can come out of the splint and work on range of motion and progressive weightbearing as tolerated. He will continue to monitor symptoms for his thumb CMC arthritis which responded well to a intra-articular injection. He can wear a brace if this helps to support the thumb CMC joint, take anti-inflammatorie s, or use Voltaren gel. We discussed trigger fingers. Treatment options include a steroid injection or consideration for surgical A1 janette release. He would like to do an injection today in his middle and ring fingers. Risk and benefits of an action were discussed, he understood these risks and would like to proceed. I let him know can take 2 days to 2 weeks to start working up to 6 weeks to take its full effect. He understood these risk and tolerated procedure well. I will see him back for follow-up in 6 weeks. All of his questions were answered, he is in agreement the plan. Not available 04/01/2024 11:49:58 05/13/2024 05/13/2024 The above findin gs were discussed in detail today with patient. He is doing well from his left wrist fracture which has been treated nonoperatively, 3 months ago. He will continue with activities as tolerated and work on his range of motion. His left middle and ring finger trigger fingers have resolved after an injection performed 6 weeks ago. He will continue to monitor his symptoms, if he does have recurrence, he can return to see me for consideration for second injection versus talking about surgical A1 janette release and he will continue to monitor his thumb CMC arthritis. The injection continues to work though he does have mild thumb pain with some activities. He wears the thumb CMC brace when needed during the day with activities. We did briefly discuss surgical intervention versus doing another steroid injection if he does have symptoms in the future. He will continue to consider both. As for the shoulder, he does have mild glenohumeral joint arthritis and probable rotator cuff tendinitis versus calcific tendinitis. Pathology and expected prognosis were discussed. Treatment options include activity modification, anti-inflammatorie s, physical therapy, or consideration for a cortisone injection. He like to proceed with a cortisone injection today. Details of injection and as well as risks were discussed, including but not limited to infection, bleeding, nerve injury, no improvement, worsening of symptoms, flare reaction, skin depigmentation, and lipodystrophy. I let them know it can take 2 days to 2 weeks to start working and up to 6 weeks to take its full effect. They understand this and gave verbal consent. They tolerated the procedure well. He will use the shoulder as tolerated in the next few weeks as the pain starts to improve. I will see him back for follow-up in 3 months for reevaluation. All of his questions were answered, he is in agreement the plan. Not available 05/13/2024 11:56:32 08/12/2024 08/12/2024 The above findings were discussed in detail today the patient. Has evidence of left shoulder arthritis, got about a month relief of an injection previously. We discussed treatment options which include activity modification, anti-inflammatory, another steroid injection, or consideration for surgery. He would like to proceed with another injection today. He is taking care of his and daughter at this point and does not feel like surgery is appropriate at this time for him and his . We also discussed thumb CMC arthritis. He had good relief from injection in the past and has been wearing thumb CMC splints and doing activity modification. We discussed treatment options at this time including a second injection, he like to proceed with another steroid injection today. Details of injection and as well as risks were discussed, including but not limited to infection, bleeding, nerve injury, no improvement, worsening of symptoms, flare reaction, skin depigmentation, and lipodystrophy. I let them know it can take 2 days to 2 weeks to start working and up to 6 weeks to take its full effect. They understand this and gave verbal consent. They tolerated the procedure well. He will return to see me for follow-up in 3 months for reevaluation. All of his questions were answered, he is in agreement the plan. Not available 08/12/2024 09:35:17 10/21/2024 10/21/2024 The above findin gs were discussed in detail today with the patient. 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 We discussed treatment options including activity modification, bracing, anti-inflammatorie s or cortisone injection. He like to proceed with cortisone injections today. I will provide a brace for his right side which she can wear with activities when he has pain. We discussed IP joint arthritis, I would suggest trying to diclofenac cream which I will send in a prescription for. He will return to see me as needed for his thumbs. I will have him follow-up with Dr. Salazar for his left shoulder in 1 month when he can have another cortisone injection. All of his questions were answered, he is in agreement the plan. [place] [id number] Not available 10/21/2024 09:07:28 Plan of Treatment Reminders Order Date Submit Date Provider Last Modified By Organization Details Last Modified Time Details Appointments ESTABLI SHED/AO NE REFERRA L 2024 08:45A M Hong Salazar MD Not available Not available Not available Lab None recorde d. Referral None recorde d. Procedures None recorde d. Surgeries None recorde d. Imaging XR, wrist, 3 or more view [address] [facility], [address], [address], [place], [address], 02/26/2024 21:54:01 XR, wrist, 3 or more view 2023 024 [facility], [address], [place], [address], 04/01/2024 13:06:37 XR, shoulde r, 2 or more view 2023 024 [facility], [address], [place], [address], 05/13/2024 15:34:12 Medication Orders lidocai ne (PF) 10 mg/mL (1 %) injecti on solutio n 2023 024 [place] [id number] [id number], [address], [place], [address], 02/26/2024 13:09:32 triamci nolone acetoni de 40 mg/mL suspens ion for injecti on 2023 024 [id number], [address] [place], [address], 08/12/2024 08:32:28 lidocai ne (PF) 10 mg/mL (1 %) injecti on solutio n 2023 024 [id number], [address] [facility] [place], [address], 04/01/2024 13:06:37 triamci nolone acetoni de 40 mg/mL suspens ion for injecti on 2023 024 [id number], [address] [place], [address], 08/12/2024 08:32:28 lidocai ne (PF) 10 mg/mL (1 %) injecti on solutio n 2023 024 [id number], [address] [place], [address], 05/13/2024 15:34:12 triamci nolone acetoni de 40 mg/mL suspens ion for injecti on 2023 024 [id number], [address] [place], [address], 08/12/2024 08:32:28 lidocai ne (PF) 10 mg/mL (1 %) injecti on solutio n 2023 [id number] [address] [place], [address], 08/12/2024 08:54:35 triamci nolone acetoni de 40 mg/mL suspens ion for injecti on 2023 024 [email or web address] Not available 08/12/2024 09:02:17 lidocai ne (PF) 10 mg/mL (1 %) injecti on solutio n [id number], [address] [place], [address], 08/12/2024 08:54:35 triamci nolone acetoni de 40 mg/mL suspens ion for injecti on [id number], [address] [place], [address], 08/12/2024 08:54:35 lidocai ne (PF) 10 mg/mL (1 %) injecti on solutio n [id number], [address] [place], [address], 10/21/2024 13:13:53 triamci nolone acetoni de 40 mg/mL suspens ion for injecti on [address]/[id number], [address] [place], [address], 10/21/2024 13:13:53 diclofe nac 1 % topical gel 2024 025 [id number], [address] [place], [address], 10/21/2024 09:08:00 Patient TargetsNo targets recorded. Patient Instructions Encounter Date Encounter Id Patient Instructions Last Modified By Organization Details Last Modified Time 02/26/2024 [id number] You have been provided with a cortisone injection in order to reduce the pain and inflammation that you are experiencing. The injection consists of two medications. Cortisone (an anti-inflammatory that will take 48-72 hours to take effect) and Lidocaine (a numbing agent that will last 2-3 hours). Please note that not everyone will have a lasting response following the injection. PATIENT INSTRUCTIONS Once the Lidocaine wears off, you may have an increase in your pain. I recommend icing the affected area for 20 minutes 3-4 times per day. It is recommended that you refrain from any high level activities using the joint or limb that was injected for approximately 24-48 hours. Normal day-to-day activities are generally not a problem. POSSIBLE SIDE EFFECTS Individuals with dark complexions may experience some skin discoloration locally at the site of the injection. There is the possibility of an increase in discomfort within 48 hours following the injection. This is called a ? f lare? . To help minimize the chances of this, please see the post-injection instructions above. There is a less than 1% chance of an infection. If you notice any signs of infection (redness, warmth, drainage, fever greater than 100 degrees) please call our office or contact us through the portal TAMIE. Not available 02/26/2024 13:09:31 3 views of the l eft wrist were ordered and reviewed today, this demonstrates a nondisplaced radial styloid fracture without interval displacement since last x-ray. There is no step-off of the joint. There is mild widening at the SL interval. There is no DISI deformity. Maintained alignment of the radial height, radial inclination, and volar tilt. There is severe thumb CMC arthritis with joint space narrowing osteophyte formation, and subluxation. There is a soft tissue calcification/osteop hyte at the medial aspect of the distal scaphoid. No evidence of a scaphoid fracture. 4 views of the left wrist including a scaphoid view performed on 02/16/2024 at an outside institution was available for review, this demonstrates a nondisplaced radial styloid fracture which is intra-articular without a step-off. Maintained radial height, radial pronation, and volar tilt. There is thumb CMC arthritis. No evidence of a scaphoid fracture. 4 views of bilateral wrists including scaphoid views taken on 02/06/2024 at an outside institution was available for review, this demonstrates no obvious acute fractures or dislocations. There is a lucency at the radial styloid which may represent a nondisplaced fracture. Thumb CMC arthritis. Not available 02/26/2024 13:05:46 04/01/2024 [id number] You have been provided with a cortisone injection in order to reduce the pain and inflammation that you are experiencing. The injection consists of two medications. Cortisone (an anti-inflammatory that will take 48-72 hours to take effect) and Lidocaine (a numbing agent that will last 2-3 hours). Please note that not everyone will have a lasting response following the injection. PATIENT INSTRUCTIONS Once the Lidocaine wears off, you may have an increase in your pain. I recommend icing the affected area for 20 minutes 3-4 times per day. It is recommended that you refrain from any high level activities using the joint or limb that was injected for approximately 24-48 hours. Normal day-to-day activities are generally not a problem. POSSIBLE SIDE EFFECTS Individuals with dark complexions may experience some skin discoloration locally at the site of the injection. There is the possibility of an increase in discomfort within 48 hours following the injection. This is called a ? f lare? . To help minimize the chances of this, please see the post-injection instructions above. There is a less than 1% chance of an infection. If you notice any signs of infection (redness, warmth, drainage, fever greater than 100 degrees) please call our office or contact us through the portal TAMIE. Not available 04/01/2024 11:50:19 3 views of the l eft wrist were ordered and reviewed today, this demonstrates interval healing of intra-articular radial styloid fracture without displacement. There is no articular step-off at the joint surface. There is maintenance of radial height, radial inclination, and volar tilt. There is severe thumb CMC arthritis with joint space narrowing, osteophyte formation, and subluxation. Not available 04/01/2024 11:48:44 05/13/2024 [id number] You have been provided with a cortisone injection in order to reduce the pain and inflammation that you are experiencing. The injection consists of two medications. Cortisone (an anti-inflammatory that will take 48-72 hours to take effect) and Lidocaine (a numbing agent that will last 2-3 hours). Please note that not everyone will have a lasting response following the injection. PATIENT INSTRUCTIONS Once the Lidocaine wears off, you may have an increase in your pain. I recommend icing the affected area for 20 minutes 3-4 times per day. It is recommended that you refrain from any high level activities using the joint or limb that was injected for approximately 24-48 hours. Normal day-to-day activities are generally not a problem. POSSIBLE SIDE EFFECTS Individuals with dark complexions may experience some skin discoloration locally at the site of the injection. There is the possibility of an increase in discomfort within 48 hours following the injection. This is called a ? f lare? . To help minimize the chances of this, please see the post-injection instructions above. There is a less than 1% chance of an infection. If you notice any signs of infection (redness, warmth, drainage, fever greater than 100 degrees) please call our office or contact us through the portal TAMIE. Not available 05/13/2024 11:53:30 3 views of the l eft shoulder were ordered and reviewed today, this demonstrates mild glenohumeral joint arthritis with joint space narrowing. There are degenerative changes at the greater tuberosity with calcification noted. There is a type II acromion. There is diffuse demineralization of the bones. No acute findings noted. Not available 05/13/2024 11:54:26 08/12/2024 [id number] You have been provided with a cortisone injection in order to reduce the pain and inflammation that you are experiencing. The injection consists of two medications. Cortisone (an anti-inflammatory that will take 48-72 hours to take effect) and Lidocaine (a numbing agent that will last 2-3 hours). Please note that not everyone will have a lasting response following the injection. PATIENT INSTRUCTIONS Once the Lidocaine wears off, you may have an increase in your pain. I recommend icing the affected area for 20 minutes 3-4 times per day. It is recommended that you refrain from any high level activities using the joint or limb that was injected for approximately 24-48 hours. Normal day-to-day activities are generally not a problem. POSSIBLE SIDE EFFECTS Individuals with dark complexions may experience some skin discoloration locally at the site of the injection. There is the possibility of an increase in discomfort within 48 hours following the injection. This is called a ? f lare? . To help minimize the chances of this, please see the post-injection instructions above. There is a less than 1% chance of an infection. If you notice any signs of infection (redness, warmth, drainage, fever greater than 100 degrees) please call our office or contact us through the portal TAMIE. Not available 08/12/2024 09:33:27 10/21/2024 [id number] You have been provided with a cortisone injection in order to reduce the pain and inflammation that you are experiencing. The injection consists of two medications. Cortisone (an anti-inflammatory that will take 48-72 hours to take effect) and Lidocaine (a numbing agent that will last 2-3 hours). Please note that not everyone will have a lasting response following the injection. PATIENT INSTRUCTIONS Once the Lidocaine wears off, you may have an increase in your pain. I recommend icing the affected area for 20 minutes 3-4 times per day. It is recommended that you refrain from any high level activities using the joint or limb that was injected for approximately 24-48 hours. Normal day-to-day activities are generally not a problem. POSSIBLE SIDE EFFECTS Individuals with dark complexions may experience some skin discoloration locally at the site of the injection. There is the possibility of an increase in discomfort within 48 hours following the injection. This is called a ? f lare? . To help minimize the chances of this, please see the post-injection instructions above. There is a less than 1% chance of an infection. If you notice any signs of infection (redness, warmth, drainage, fever greater than 100 degrees) please call our office or contact us through the portal TAMIE. Not available 10/21/2024 09:06:07 Reason for Referral None Reported. Problems Name Problem SNOMED Code Status Onset Date Resolution Date Notes Provider Name and Address Organization Details Recorded Time Closed fracture of distal end of radius 55230812 Active 2023 Leidy frost MD [address], [place], [address], [place] [facility] 13:08:08 Osteoarthro sis of the carpometaca rpal joint of the thumb 58400755 Active 2023 Leidy frost MD [address], [place], [address], [place] [facility] 4 13:08:36 Arthritis of left glenohumera l joint 0064228310488 100 Active 2023 Leidy frost MD [address], [place], [address], [place] [facility] 4 11:54:47 Triggering of digit 973919966 Active 2023 Leidy frost MD [address], [place], [address], [place] [facility] 4 11:56:43 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 Procedures Surgical History Date Name Laterality Status Provider Name and Address Organization Details Recorded Time 5 LES finger joint injection completed Leidy Langford MD [address], [place], [address], [place] [facility] 10/21/2024 09:05:14 4 LES finger joint injection completed Leidy Langford MD [address], [place], [address], [place] [facility] 08/12/2024 09:33:13 4 LES Subacromial Shoulder Inj completed Leidy Langford MD [address], [place], [address], [place] [facility] 08/12/2024 09:32:56 4 LES Subacromial Shoulder Inj completed Leidy Langford MD [address], [place], [address], [place] [facility] 05/13/2024 11:53:24 4 LES trigger finger/De Quervain's injection completed Leidy Langford MD [address] [facility],[address], [place], [address], [place] [facility] 04/01/2024 11:47:54 4 LES finger joint injection completed Leidy Langford MD [address] [facility],[address], [place], [address], [place] [facility] 02/26/2024 13:10:34 Imaging Results None recorded. Procedure Notes None recorded. Medical Equipment None Reported. Allergies Allergen ID Allergen Name Allergen Category Reaction Reaction Severity Criticality Documentation Date Start Date Code Code System Note Provider Name and Address Organization Details Recorded Time 59830 acetamino phen / oxycodone medicatio n Not available Not available Not available 02/26/2024 95619 3 RxKostas Duggan null, [place] [facility] 4 09:31:06 82232 oxycodone medicatio n Not available Not available Not available 02/26/2024 7804 RxKostas Duggan null, [place] [facility] 4 09:31:25 83713 amoxicill in medicatio n Not available Not available Not available 02/26/2024 723 RxKostas Duggan null, [place] [facility] 4 09:31:33 15727 erythromy leisa medicatio n Not available Not available Not available 02/26/2024 4053 Eloisa Duggan null, [place] [facility] 4 09:31:43 94502 minocycli ne medicatio n Not available Not available Not available 04/01/2024 6980 RxKostas Duggan null, [place] [facility] 4 11:19:40 17259 sertralin e medicatio n Not available Not available Not available 04/01/2024 89335 RxNorm Cassidy Duggan null, [place] [facility] 4 11:19:48 Medications Name Sig Start Date Stop Date Status Note LastModified by Organization Details LastModified Time atorvastati n 40 mg tablet TAKE 1 TABLET BY MOUTH EVERY DAY active Not Available Not Available No t Available prednisone 10 mg tablet PLEASE SEE ATTACHED FOR DETAILED DIRECTION S 08/12 completed Not Available Not Available Not Available doxycycline hyclate 100 mg capsule TAKE 1 CAPSULE BY MOUTH EVERY DAY WITH FOOD active Not Available Not Available No t Available atorvastati n 20 mg tablet TAKE 1 TABLET DAILY active Not Available Not Available No t Available alendronate 70 mg tablet TAKE 1 TABLET BY MOUTH WEEKLY active Not Available Not Available No t Available leucovorin calcium 10 mg tablet TAKE 2 TABLETS BY MOUTH ONCE A WEEK THE DAY AFTER METHOTREX ATE active Not Available Not Available No t Available amlodipine 5 mg tablet TAKE 1 TABLET BY MOUTH 1 TIME EACH DAY. active Not Available Not Available No t Available ciprofloxac in 500 mg tablet TAKE 1 TABLET BY MOUTH TWICE A DAY active Not Available Not Available No t Available sulfamethox azole 800 mg-trimetho prim 160 mg tablet TAKE 1 TABLET BY MOUTH TWICE A DAY FOR 5 DAYS active Not Available Not Available No t Available tramadol 50 mg tablet TAKE 1 TABLET BY MOUTH EVERY 8 HOURS NEEDED FOR PAIN FOR UP TO 7 DAYS. 08/12 completed Not Available Not Available Not Available methotrexat e sodium 2.5 mg tablet TAKE 5 TABLETS BY MOUTH EVERY WEEK active Not Available Not Available No t Available tamsulosin 0.4 mg capsule TAKE 1 CAPSULE BY MOUTH EVERY DAY AT NIGHT active Not Available Not Available No t Available amlodipine 10 mg tablet active Not Available Not Available Not Available triamcinolo ne acetonide 40 mg/mL suspension for injection Take 80 mg by injection route. 2024 active Not Available Not Available Not Avai lable cephalexin 500 mg capsule TAKE 1 CAPSULE BY MOUTH TWICE A DAY FOR 7 DAYS 10/21 completed Not Available Not Available Not Available omeprazole 20 mg capsule,del ayed release TAKE 1 CAPSULE TWICE DAILY active Not Available Not Available No t Available folic acid 1 mg tablet TAKE 3 TABLETS BY MOUTH EVERY DAY 08/12 completed Not Available Not Available Not Available mupirocin 2 % topical ointment APPLY AM, NOON AND PM IN AND AROUND THE NOSE FOR 7 DAYS active Not Available Not Available No t Available hydroxychlo roquine 200 mg tablet TAKE 1 TABLET BY MOUTH TWICE A DAY FOR 5 DAYS A WEEK AND 1 TABLET DAILY 2 DAYS A WEEK 08/12 completed Not Available Not Available Not Available lisinopril 40 mg tablet TAKE 1 TABLET DAILY active Not Available Not Available No t Available bupropion HCl XL 300 mg 24 hr tablet, extended release Take 1 tablet every day by oral route. active Not Available Not Available No t Available meloxicam 10/21 completed Not Available Not Available Not Available lorazepam @ [facility] 08/12 completed Not Available Not Available Not Available ropinirole active Not Available Not Av ailable Not Available carbidopa active Not Available Not Park ilable Not Available trazodone 05/13 completed Not Available Not Available Not Available mirtazapine 30 mg [facility] 08/12 completed Not Available Not Available Not Available entacapone 200 mg 5x daily active Not Available Not Available No t Available lidocaine (PF) 10 mg/mL (1 %) injection solution Take 2 mL by injection route. 2024 active Not Available Not Available Not Avai lable diclofenac 1 % topical gel APPLY 2 GRAMS TO THE AFFECTED AREA(S) BY TOPICAL ROUTE 4 TIMES PER DAY 2024 active Not Available Not Available Not Avai lable aspirin 81 mg capsule Take 1 capsule every day by oral route. active Not Available Not Available No t Available Vitals Date Recorded Body height Body mass index (BMI) Body weight Provider Name and Address Organization Details Last Updated DateTime 08/12/2024 177.8 cm 22 kg/m2 23745.63 g Selma Moncada [place] [facility], 08/12/2024 08:33:47 Date Recorded Body height Body mass index (BMI) Body weight Provider Name and Address Organization Details Last Updated DateTime 10/21/2024 177.8 cm 22 kg/m2 54487.63 g Selma Moncada [facility] 10/21/2024 08:55:09 Social History Question Answer Notes LastModified by Organizat ion Details LastModified Time Tobacco Smoking Status Never Smoker Cassidy de la garza, [place] - [facility] 02/26/2024 10:27:52 What Is Your Level Of Alcohol Consumption? None [email or web address] Information not available 02/26/2024 Do You Use Any Illicit Or Recreational Drugs? No [email or web address] Information not available 02/26/2024 Do You Or Have You Ever Used Any Other Forms Of Tobacco Or Nicotine? No Information not available 02/26/2024 Sex: Unknown Functional Status None recorded. Mental Status None recorded. Family History Nothing Reported. Medical History Condition Response Coronary Artery Disease N Gout Y Hyperthyroidism N MRSA N Blood Transfusion N Emphysema N Hypothyroidism N COPD N Depression Y Pacemaker N Vascular Disease N Gastrointestinal Disease N Anxiety Disorder Y Autoimmune disease N Arthritis Y Cancer Y Stroke N High Cholesterol Y Neurologic Disorder Y Liver Disease N Organ Transplant N Arrhythmia N Rheumatoid Arthritis Y Fibromyalgia N Kidney Disease N Allergies/Hayfever Y Adverse Reaction to Anesthesia N Thyroid Problems N Anemia N Brain Injury N Heart Attack ([place]) N Osteopenia N Diabetes N Bleeding Disorder N Seizures/Epilepsy N AIDS/HIV N Congestive Heart Failure (CHF) N Asthma N Amputation N Reflux/GERD Y Sleep Apnea N Hepatitis N Aneurysm N Heart Disease N Pulmonary Embolism N Hypertension Y Osteoporosis Y Past Encounters Encounter ID Performer Location Encounter Start Date Encounter Closed Date Diagnosis/Indication Diagnosis SNOMED-CT Code Diagnosis ICD10 Code Diagnosis Note [id number] MD BLANCO George [address] [place] [address] 02/26/2024 09:18:47 02/26/2024 10:20:59 Pain of left wrist 3961576777 08303 M25.532 Additional diagnosis detail: Left wrist pain Closed fra cture of distal end of radius 16233713 S52.572A Additional diagnosis detail: Other closed intra-venkata cular fracture of distal end of left radius, initial encounter Osteoarthr osis of the carpometacarpal joint of the thumb 23881878 M18.12 Additional diagnosis detail: Primary osteoarthr itis of first carpometac arpal joint of left hand [id number] MD BLANCO George [address] [address] 04/01/2024 11:09:01 04/01/2024 11:44:29 Closed fracture of distal end of radius 20654274 S52.572A Additional diagnosis detail: Other closed intra-venkata cular fracture of distal end of left radius, initial encounter Osteoarthr osis of the carpometacarpal joint of the thumb 05572208 M18.12 Additional diagnosis detail: Primary osteoarthr itis of first carpometac arpal joint of left hand Triggering of digit 2399 99880 M65.332 Additional diagnosis detail: Trigger middle finger of left hand, trigger ring finger of left hand [id number] MD BLANCO George [address] [address] 05/13/2024 10:26:20 05/13/2024 11:10:39 Closed fracture of distal end of radius 34589305 S52.572A Additional diagnosis detail: Other closed intra-venkata cular fracture of distal end of left radius, initial encounter Osteoarthr osis of the carpometacarpal joint of the thumb 93498097 M18.12 Additional diagnosis detail: Primary osteoarthr itis of first carpometac arpal joint of left hand Chronic pa in of left upper limb 2223668138 0628619 M25.512 G89.29 Additional diagnosis detail: Chronic left shoulder pain Pain of le ft shoulder joint 2362989276 3015828 M25.512 Additional diagnosis detail: Pain, joint, shoulder, left Arthritis of left glenohumeral joint 9109192522 508849 M19.012 Triggering of digit 2399 94574 M65.342 M65.332 Additional diagnosis detail: Trigger finger, left ring fingerAddi tional diagnosis detail: Trigger finger, left middle finger [id number] MD BLANCO George [facility] 299 [facility] [address] [place] [address] 08/12/2024 08:16:17 08/12/2024 08:54:36 Arthritis of left glenohumeral joint 2992183732 555571 M19.012 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 3448471446 149959 M18.12 [id number] MD BLANCO George [address] [address] 10/21/2024 08:09:50 10/21/2024 09:19:40 Osteoarthrosis of the carpometacarpal joint of the thumb 05139580 M18.12 Additional diagnosis detail: Primary osteoarthr itis of first carpometac arpal joint of left hand 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 0671568600 674427 M18.11 Osteoarthr itis of finger joint of right hand 9093885794 0023109 M15.1 Health Concerns Section Related Observation LastModified by Organization Detai ls LastModified Time None Recorded Concern Status LastModified by Organization Details LastModified Time None Recorded Advance Directives Directive None Recorded Payers Encounter Date Sequence Insurance Name Policy Number Policy Carrillo Covered Member ID Carrillo Member ID Guarantor Name 02/26/2024 1 [place] PPO) [id number] Caleb Mejiat [id number] Caleb Martínez 04/01/2024 1 [place] P[place]) [id number] Caleb Mejiat [id number] Caleb Martínez 05/13/2024 1 [place] P[place]) [id number] Caleb Mejiat [id number] Caleb Martínez 08/12/2024 1 [place]) [id number] Caleb Martínez [id number] Caleb Martínez 10/21/2024 1 [place] PPO) [id number] Caleb Mejiat [id number] Caleb Martínez Notes Date Note Type Note Provider Name and Address Organization Details Recorded Time 02/26/2024 text/html This is a 78-year-old right hand dominant male who presents with a left wrist injury on 02/06/2024 when he was catching his as she was falling. States that she landed on his left wrist and he had swelling and pain after. He did go to [facility] emergency department, x-rays were taken and he was told he did not have a fracture. He continued to have pain and saw his PCP on 02/16/2024, new x-rays were taken and a nondisplaced distal radius fracture was identified. He was placed in a thumb spica splint and told to follow-up with a hand doctor. He denies any falls in between those 2 incidences. 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 He has a history of Parkinson's disease which causes tremors in the hands. He does take care of his who has Alzheimer's disease and dementia. Leidy Langford MD [address] [address], [place], [address], [place] [facility] 02/26/2024 13:10:51 04/01/2024 text/html He presents for follow-up of his left nondisplaced intra-articular distal radius fracture being treated nonoperatively, he is about 8 weeks from injury and left thumb CMC arthritis status post steroid injection on 02/26/2024. He has been wearing his wrist brace and has been weaning out of it over the last few weeks. He denies any pain in the wrist. He does think that the steroid injection helped the thumb pain significantly. He has mild pain with some activities at the thumb. He is working on gentle active range of motion of the wrist and incorporating the hand into daily activities. He has noticed triggering and clicking of his left middle and ring finger. He does have pain over his A1 pulleys. He does have a history of a right middle and ring finger trigger finger release a number of years ago. Leidy Langford MD [address] [address], [place], [address], [place] [facility] 04/04/2024 21:14:10 05/13/2024 text/html He presents for follow-up of his left distal radius fracture being treated nonoperatively, date of injury 02/06/2024, he is about 3 months out from injury. I also performed a left middle and ring finger trigger finger injection when he last saw me on 04/01/2024. He had a left thumb CMC joint injection on 02/26/2024. His wrist has been feeling well. He has been doing more activities with it as tolerated. He notes no pain at the wrist and notes increased range of motion. His trigger fingers have resolved since the injection. He does note some pain at his ring finger DIP joint which is intermittent. He is having mild pain at the thumb CMC joint though the injection performed in February has mostly helped. He notes a new symptom of left shoulder pain which radiates into his bicep and lateral arm. This has been since the fall however has been more persistent recently. He describes decreased range of motion and pain with activities. He has tried [id number] medications with have not helped his pain significantly. Leidy Langford MD 299 [facility],[address] [address], [place], [address], [facility] - [facility] 05/13/2024 11:57:41 08/12/2024 text/html He returns for follow-up of his left shoulder arthritis status post steroid injection on 05/13/2024 and his left thumb CMC joint, status post steroid injection on 02/26/2024. He notes that shoulder had relief from injection for about 1 month and has been bothering him since. He notes pain with movement. The thumb has had relief for a number of months however 1 month ago it started to become more painful for him, pain especially with movement and pinching. He wears a thumb CMC brace which is helpful. He is on medication for rheumatoid arthritis. He does not note any triggering or locking of other digits which were previously injected. Leidy Langford MD [address] [facility],[address] [address], [place], [address], [facility] [place] [facility] 08/12/2024 09:36:08 10/21/2024 text/html He presents for follow-up of bilateral thumb pain due to thumb CMC arthritis, he had an injection to his left thumb CMC joint on 02/26/2024. This lasted for greater than a time however he is having pain in both thumbs at this point. He does have a brace for the left side which she wears when he is doing activities which is somewhat helpful. 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 He does have pain in his left shoulder for which I gave him a cortisone injection on 08/12/2024 for glenohumeral joint arthritis. Leidy Langford MD 299 [facility] [address], [place], [address], [facility] - [facility] 10/21/2024 09:51:15
--- OUTSIDE RECORDS SUMMARY | 2024-11-10 08:39 | XMS_ITS | Continuity of Care Document ---
Author Organization [place] [facility] Steph Meyer [place] [place] Address [address] [facility] [address] [place] [address] Care Team Providers Care Gerentological Physiotherapist Name Role Phone JENNIFER ESPOSITO Referring Provider JENNIFER Palacios Primary Care Provider Assessment Encounter Date Assessment Date Assessment LastModified by Organization Details LastModified Time 10/21/2024 10/21/2024 The above findings were discussed in detail today with the patient. 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 We discussed treatment options including activity modification, bracing, anti-inflammato nicolás or cortisone injection. He like to proceed [...] is in agreement the plan. Not available 10/21/2024 09:07:28 Plan of Treatment Reminders Order Date Submit Date Provider Last Modified By Organization Details Last Modified Time Details Appointments ESTABLISH ED/AONE REFERRAL 2024 08:45A M Hong Salazar MD Not available Not available Not available Lab None recorded. Referral None recorded. Procedures None recorded. Surgeries None recorded. Imaging None recorded. Medication Orders lidocaine (PF) 10 mg/mL (1 %) injection solution 2024 025 [email or web address] [id number], [address] [facility] [place], [address], 10/21/2024 13:13:53 triamcino lone acetonide 40 mg/mL suspensio n for injection 2024 025 [email or web address] r1 [id number], [address] [place], [address], 10/21/2024 13:13:53 diclofena c 1 % topical gel 2024 025 JUSTO [id number], [address] [facility] [place], [address], 10/21/2024 09:08:00 Patient TargetsNo targets recorded. Patient Instructions Encounter Date Encounter Id Patient Instructions Last Modified By Organization Details Last Modified Time 10/21/2024 [id number] You have been provided with a cortisone [...] Closed fracture of distal end of radius 10956915 Active 2023 Leidy frost MD [address], [place], [address], [place] [facility] 4 13:08:08 Osteoarthro sis of the carpometaca rpal joint of the thumb 57670741 Active 2023 Leiyd frost MD [address], [place], [address], [place] [facility], [facility] 4 13:08:36 Arthritis of left glenohumera l joint 3123710289639 100 Active 2023 Leidy frost MD [address], [place], [address], [place] [facility], [facility] 4 11:54:47 Triggering of digit 107607524 Active 2023 Leidy frost MD [address], [place], [address], [place] [facility], [facility] 4 11:56:43 Arthritis of first carpometaca rpal joint of right hand 2103054195166 100 Active 2024 Leidy frost MD [address], [place], [address], [place] [facility], [facility] 5 09:05:52 Osteoarthri tis of finger joint of right hand 3691520906204 9104 Active 2024 Leidy frost MD [address], [place], [address], [place] [facility], [facility] 5 09:07:37 Problem Notes None recorded. Procedures Surgical History Date Name Laterality Status Provider Name and Address Organization Details Recorded Time 5 LES finger joint injection completed Leidy Langford MD [address], [place], [address], [place] [facility] 10/21/2024 09:05:14 4 LES finger joint injection completed Leidy Langford MD 299 [facility],[address], [address], [place] [facility] 08/12/2024 09:33:13 4 LES Subacromial Shoulder Inj completed Leidy Langford MD 299 [facility],[address], [address], [place] [facility] 08/12/2024 09:32:56 4 LES Subacromial Shoulder Inj completed Leidy Langford MD [address] [facility],[address] [place] [address], [address], [place] [facility] 05/13/2024 11:53:24 4 LES trigger finger/De Quervain's injection completed Leidy Langford MD [address] [facility],[address], [address], [place] [facility] 04/01/2024 11:47:54 4 LES finger joint injection completed Leidy Langford MD [address] [facility],[address], [address], [place] [facility] 02/26/2024 13:10:34 Imaging Results None recorded. Procedure Notes None recorded. Medical Equipment None Reported. Allergies Allergen ID Allergen Name Allergen Category Reaction Reaction Severity Criticality Documentation Date Start Date Code Code System Note Provider Name and Address Organization Details Recorded Time 39585 acetamino phen / oxycodone medicatio n Not available Not available Not available 02/26/2024 [id number] 3 RxNorm Cassidy Duggan null, [place] [facility], [facility] 4 09:31:06 10114 oxycodone medicatio n Not available Not available Not available 02/26/2024 [id number] RxJoaquinarm Cassidy Duggan null, [place] [facility], [facility] 4 09:31:25 40915 amoxicill in medicatio n Not available Not available Not available 02/26/2024 723 RxKostas Duggan null, [place] [facility], [facility] 4 09:31:33 35781 erythromy leisa medicatio n Not available Not available Not available 02/26/2024 4053 Eloisa Duggan null, [place] [facility], [facility] 4 09:31:43 78539 minocycli ne medicatio n Not available Not available Not available 04/01/2024 6980 RxKostas Duggan null, [place] [facility], [facility] 4 11:19:40 84387 sertralin e medicatio n Not available Not available Not available 04/01/2024 [id number] Eloisa Duggan null, [place] [facility] 4 11:19:48 Medications Name Sig Start [...] Available Not Available Not Available lorazepam @ [facility] 08/12 completed Not Available Not Available Not Available ropinirole active Not Available Not Av ailable Not Available carbidopa active Not Available Not Park ilable Not Available trazodone 05/13 completed Not Available Not Available Not Available mirtazapine 30 mg [facility] 08/12 completed Not Available Not Available Not [...] Updated DateTime 10/21/2024 177.8 cm 22 kg/m2 34532.[address] [place] - [facility] 10/21/2024 08:55:09 Social History Question Answer Notes LastModified by Organizat ion Details LastModified Time Tobacco Smoking Status Never Smoker Cassidy Duggan holli, [place] - [facility] 02/26/2024 10:27:52 What Is Your Level Of Alcohol Consumption? None Information not available 02/26/2024 Do You Use Any Illicit Or Recreational Drugs? No [email or web address] Information not available 02/26/2024 Do You Or Have You Ever Used Any Other Forms Of Tobacco Or Nicotine? No [email or web address] Information not available 02/26/2024 Sex: Unknown Functional Status None recorded. Mental Status None recorded. Family History Nothing Reported. Medical History Condition Response Coronary Artery Disease N Gout Y Hyperthyroidism N MRSA N Blood Transfusion N Emphysema N Depression Y COPD N Hypothyroidism N Pacemaker N Vascular Disease N Gastrointestinal Disease N Anxiety Disorder Y Autoimmune disease N Arthritis Y Cancer Y Stroke N High Cholesterol Y Neurologic Disorder Y Liver Disease N Organ Transplant N Rheumatoid Arthritis Y Arrhythmia N Fibromyalgia N Kidney Disease N Allergies/Hayfever Y Adverse Reaction to Anesthesia N Thyroid Problems N Anemia N Brain Injury N Heart Attack ([place]) N Osteopenia N Diabetes N Bleeding Disorder N Seizures/Epilepsy N AIDS/HIV N Congestive Heart Failure (CHF) N Asthma N Amputation N Reflux/GERD Y Sleep Apnea N Hepatitis N Aneurysm N Heart Disease N Pulmonary Embolism N Hypertension Y Osteoporosis Y Past Encounters Encounter ID Performer Location Encounter Start Date Encounter Closed Date Diagnosis/Indication Diagnosis SNOMED-CT Code Diagnosis ICD10 Code Diagnosis Note [id number] MD BLANCO George [address] [address] 10/21/2024 08:09:50 10/21/2024 09:19:40 Osteoarthrosis of the carpometacarpal joint of the thumb 24227146 M18.12 Additional diagnosis detail: Primary osteoarthr itis of first carpometac arpal joint of left hand 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 8092056175 904504 M18.11 Osteoarthr itis of finger joint of right hand 8686858783 1594843 M15.1 Health Concerns Section Related Observation LastModified by Organization Detai ls LastModified Time None Recorded Concern Status LastModified by Organization Details LastModified Time None Recorded Payers Encounter Date Sequence Insurance Name Policy Number Policy Carrillo Covered Member ID Carrillo Member ID Guarantor Name 10/21/2024 1 [facility]: MEDICARE PPO BLUE (MEDICARE REPLACEMENT PPO) [id number] Caleb Lai Mauricio [id number] Caleb Martínez Notes Date Note Type Note Provider Name and Address Organization Details Recorded Time 10/21/2024 text/html He presents for follow-up of [...] helpful. 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 He does have pain in his left shoulder for which I gave him a cortisone injection on 08/12/2024 for glenohumeral joint arthritis. Leidy Langford MD [address] [place] [address], [address], [place] [facility] 10/21/2024 09:51:15
== END 2024-11-10 08:27 | disposition home or self-care (01) ==
LOC: HO.MAMMO 08:26
PROVIDERS: PCP Physician Assistant Medical; Visit Provider Student in an Organized Health Care Education/Training Program
DX: M81.0 Age-related osteoporosis without current pathological fracture (principal)
CPT/HCPCS: 77080

== ENCOUNTER → 2024-11-10 08:45 | Outpatient (BNV) | payer MEDICARE, SELFPAY | PROVIDERS: PCP Physician Assistant Medical; Visit Provider Radiology Diagnostic Radiology | DX: M81.0 Age-related osteoporosis without current pathological fracture (principal); E28.39 Other primary ovarian failure | CPT/HCPCS: 77080 ==

== ENCOUNTER → 2024-12-20 07:40 | Outpatient (REF) | payer MEDICARE, SELFPAY ==
--- NOTE | 2024-12-20 07:44 | CA_ITS ---
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 Mildly to moderately reduced LV ejection fraction 40-45% with impaired relaxation filling pattern 2. Moderately dilated left atrium 3. Moderate aortic stenosis 4. Normal RV systolic pressure 5. Upper limits of normal ascending aortic size 6. No gross pericardial effusion Findings Left Ventricle Normal left ventricular cavity size. There is normal left ventricular wall thickness. The left ventricular systolic function is mild to moderately decreased. The visually estimated ejection fraction is between 40-45%. Spectral Doppler is indicative of an impaired relaxation filling pattern. E/E prime ratio is between 8 and 15 consistent with indeterminate filling pressures. Right Ventricle Normal right ventricular cavity size and systolic function. Atria The left atrium is moderately dilated. There is no evidence of interatrial shunt. The right atrium is mildly dilated. Aortic Valve There is moderate calcification of the aortic valve. There is moderate thickening of the aortic valve. There is moderate aortic valve stenosis. The peak aortic gradient is 30 mmHg.The mean gradient is 17 mmHg. The aortic valve area is 1.16 cm2. There is no aortic valve regurgitation. Mitral Valve There is mild anterior mitral leaflet thickening. There is mild mitral annular calcification. There is trace mitral valve regurgitation. There is no mitral valve stenosis. Tricuspid Valve Likely normal tricuspid valve structure and function. The right ventricular systolic pressure is normal. The right ventricular systolic pressure is 27 mmHg. Normal right atrial pressure. There is no evidence of pulmonary hypertension. Great Vessels The pulmonary artery was not well visualized. There is no dilatation of the ascending aorta measuring 3.60 cm. Small plaque is seen in the sino tubular ridge. Venous The inferior vena cava is normal in size and collapses greater than 50% with inspiration. Pericardium/Pleural There is no evidence of pericardial effusion. Prior Study Comparison Changes noted compared to prior study dated: 09/05/2023. LV systolic function has reduced Measurements 2D Linear Measurements IVSd: 1.02 0.6-0.9/0.6-1.0 cm LVIDd: 5.12 3.9-5.3/4.2-5.9 cm LVIDd Index: 2.77 2.4-3.2/2.2-3.1 cm/m2 LVIDs: 3.23 2.0-3.6 cm LVPWd: 1.08 0.7-1.1 cm LA Diam: 4.20 2.7-3.8/3.0-4.0 cm LAIDs Index: 2.27 1.5-2.3 cm/m2 LV Mass: 251.84 67-162/88-224 g LV Mass Index: 136.13 43-95/49-115 g/m2 LVOT Diam: 2.10 3.0+(-)1.3 cm 2D Systolic Function EF 4C: 39.60 >55% EF 2C: 38.90 >55% EF BiP: 40.00 >55% Mitral Valve MV Pk E: 0.56 MV PK A: 0.92 MV Decel Time: 217.00 E/A: 0.60 E'Lateral: 5.00 E'Medial: 4.57 E/E' Med: 12.30 E/E' Lat: 11.20 PHT: 63.00 MVA PHT: 3.49 Decel Harrison: 2.59 Aortic Valve AoV Pk Jcarlos: 2.73 AoV Mn Jcarlos: 1.88 AoV VTI: 0.71 AoV Pk Grad: 30.00 Aov Mn Grad: 17.00 INDIRA Cont.VTI: 1.16 LVOT LVOT Pk Jcarlos: 0.88 LVOT Mn Jcarlos: 0.61 LVOT VTI: 0.24 LVOT Pk Grad: 3.00 LVOT Mn Grad: 2.00 LVOT Diam: 2.10 LVOT Area: 3.46 Diastolic Function MV Pk E: 0.56 MV Pk A: 0.92 E/A: 0.60 E'Medial: 4.57 E/E' Med: 12.30 E' Laterial: 5.00 E/E' Lat: 11.20 Right Ventricle TAPSE (mm): 30.40 Tricuspid Valve TR Pk Jcarlos: 2.45 TR Pk Grad: 24.00 RA Press: 3.00 RVSP: 27.00 Great Vessels Aorta Sinus of Valsalva: 3.20 2.0-3.5 cm Ao Asc: 3.60 2.1-3.4 cm Pulmonary Valve PV Pk Jcarlos: 1.03 Peak PV Grad: 4.00 Updated in Other Vendor System with Status of Final Danish Kohler MD electronically signed on 12/21/2024 12:09:55 PM with status of Final
--- OUTSIDE RECORDS SUMMARY | 2024-12-20 07:44 | XMS_ITS | Continuity of Care Document ---
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 Likely cuff tear as well PLAN: I discussed the treatment options with the Patient includin. Living with the symptoms. 2. Continued non-operative management. 3. Surgical intervention. Nonoperative management would be in the form of continued physical therapy home exercises injections medical management Operative intervention would be in the form of reverse shoulder replacement. We reviewed the risks and benefits of surgery including but not limited to the following: Risk of anesthesia, including ; infection; nerve/tendon/vess el injury; deep venous thrombosis (DVT), pulmonary embolism (PE); shoulder stiffness, allograft-related complications including but not limited to failure, disease transmission; hardware-related problems; failure of the graft to heal; failure of the partial rotator cuff repair to heal if performed; hardware-related problems, potential of the procedure to not alleviate the condition, pain, stiffness, scarring, arthritis, reaction, unexpected findings, ginny biceps muscle appearance, and the potential need for further surgery in the future. A discussion regarding the risks and benefits of a glenohumeral corticosteroid injection was had with the patient. Risks include but not limited to pain, swelling, bleeding, infection, allergic reaction, elevated blood sugars, incomplete pain relief, tendon injury, bone loss, nerve damage, permanent skin depigmentation, fat atrophy and steroid flare. After reviewing the risks and benefits, patient verbalized understanding of the informed consent and elected to proceed with a corticosteroid injection. Patient tolerated the injection well. Patient will follow-up in 3 months for repeat clinical evaluation and treatment options. Not available 11/23/2024 09:41:22 Plan of Treatment Reminders Order Date Submit Date Provider Last Modified By Organization Details Last Modified Time Details Appointments FOLLOW UP 2024 08:45A M Hong Salazar MD Not available Not available Not available Lab None recorded. Referral None recorded. Procedures None recorded. Surgeries None recorded. Imaging None recorded. Medication Orders lidocaine (PF) 10 mg/mL (1 %) injection solution 2024 025 Not available 11/23/2024 15:38:24 Marcaine (PF) 0.5 % (5 mg/mL) injection solution 2024 025 [email or web address] Not available 11/23/2024 15:38:24 triamcino lone acetonide 40 mg/mL suspensio n for injection 2024 025 [email or web address] Not available 11/23/2024 15:38:24 Patient TargetsNo targets recorded. Patient InstructionsNo instructions recorded. Reason for Referral None Reported. 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 91722588 Active 2023 Leidy frost MD [address], [place], [address], [place] [facility] 13:08:36 Arthritis of left glenohumera l joint 6781215112841 100 Active 2023 Leidy frost MD [address], [place], [address], [place] [facility] 11:54:47 Triggering of digit 697435105 Active 2023 Leidy frost MD [address], [place], [address], [place] [facility] 11:56:43 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 Procedures Surgical History Date Name Laterality Status Provider Name and Address Organization Details Recorded Time 11/23/19 25 AJR Shoulder GH Inj completed Edwardo Salazar MD [address] [facility], [place], [address], [place] [facility] 11/23/2024 09:36:38 10/21/19 25 LES finger joint injection completed Leidy Langford MD [address], [place], [address], [place] [facility] 10/21/2024 09:05:14 08/12/20 24 LES finger joint injection completed Leidy Langford MD [address], [place], [address], [place] [facility] 08/12/2024 09:33:13 08/12/20 24 LES Subacromial Shoulder Inj completed Leidy Langford MD [address], [place], [address], [place] [facility] 08/12/2024 09:32:56 07/25/20 24 LES Subacromial Shoulder Inj completed Leidy Langford MD [address], [place], [address], [place] [facility] 05/13/2024 11:53:24 04/01/20 24 LES trigger finger/De Quervain's injection completed Leidy Langford MD [address], [place], [address], [place] [facility] 04/01/2024 11:47:54 02/26/20 24 LES finger joint injection completed Leidy Langford MD [address], [place], [address], [place] [facility] 02/26/2024 13:10:34 Imaging Results None recorded. Procedure Notes None recorded. Medical Equipment None Reported. Allergies Allergen ID Allergen Name Allergen Category Reaction Reaction Severity Criticality Documentation Date Start Date Code Code System Note Provider Name and Address Organization Details Recorded Time 59021 acetamino phen / oxycodone medicatio n Not available Not available Not available 02/26/2024 70497 3 RxKostas Duggan null, [place] [facility] 09:31:06 27193 oxycodone medicatio n Not available Not available Not available 02/26/2024 7804 RxKostas Duggan null, [place] [facility] 4 09:31:25 98143 amoxicill in medicatio n Not available Not available Not available 02/26/2024 723 RxKostas Duggan null, [place] [facility] 4 09:31:33 01436 erythromy leisa medicatio n Not available Not available Not available 02/26/2024 4053 RxKostas Duggan null, [place] [facility] 4 09:31:43 77546 minocycli ne medicatio n Not available Not available Not available 04/01/2024 6980 RxKostas Duggan null, [place] [facility] 4 11:19:40 58406 sertralin e medicatio n Not available Not available Not available 04/01/2024 92693 RxNorm Cassidy Duggan null, [place] [facility] 11:19:48 Medications Name Sig Start [...] Not Available Not Available No t Available Marcaine (PF) 0.5 % (5 mg/mL) injection solution Take 4 mL by injection route. 2024 active Not Available Not Available Not Avai lable meloxicam 10/21 completed Not Available Not Available Not Available lorazepam @ [facility] 08/12 completed Not Available Not Available Not [...] 10 mg/mL (1 %) injection solution Take 4 mL by injection route. 2024 active Not Available Not Available Not Avai lable diclofenac 1 % topical gel APPLY 2 GRAMS TO THE AFFECTED AREA(S) BY TOPICAL ROUTE 4 TIMES PER DAY active Not Available Not Available No t Available aspirin 81 mg capsule Take 1 capsule every day by oral route. active Not Available Not Available No t Available Vitals None Recorded Social History Question Answer Notes LastModified by Organizat ion Details LastModified Time Tobacco Smoking Status Never Smoker Cassidy Duggan null, [place] [facility] 02/26/2024 10:27:52 What Is Your Level Of Alcohol Consumption? None [email or web address] Information not available 02/26/2024 Do You Use Any Illicit Or Recreational Drugs? No [email or web address] Information not available 02/26/2024 Do You Or Have You Ever Used Any Other Forms Of Tobacco Or Nicotine? No [email or web address] Information not available 02/26/2024 Sex: Unknown Functional Status None recorded. Mental Status None recorded. Family History Nothing Reported. Medical History Condition Response Coronary Artery Disease N Gout Y Hyperthyroidism N MRSA N Blood Transfusion N Emphysema N Hypothyroidism N Depression Y COPD N Pacemaker N Vascular Disease N Gastrointestinal [...] SNOMED-CT Code Diagnosis ICD10 Code Diagnosis Note [id number] MD BLANCO [facility] [address] [facility] [address] [place] [address] 11/23/2024 08:34:37 11/23/2024 09:36:16 Arthritis of left glenohumeral joint 6432917310 215106 M19.012 Health Concerns Section Related Observation LastModified by Organization Detai ls LastModified Time None Recorded Concern Status LastModified by Organization Details LastModified Time None Recorded Payers Encounter Date Sequence Insurance Name Policy Number Policy Carrillo Covered Member ID Carrillo Member ID Guarantor Name 11/23/2024 1 [facility]: MEDICARE PPO BLUE (MEDICARE REPLACEMENT PPO) [id number] Caleb Martínez [id number] Caleb Martínez Notes Date Note Type Note Provider Name and Address Organization Details Recorded Time 11/23/2024 text/html 79-year-old [id number] t man with left shoulder pain for years. He does have rheumatoid arthritis for which she is on methotrexate and another medication. He has previously seen Dr. Langford for injections back in July. He rates pain at best a 5 out of 10 and at worst 10 out of 10. SANE score 45%. Night pain. 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 He does additionally have PTSD from his time in the [employer]. 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 Edwardo Salazar MD [address] [place] [address],[place] [address], [place], [address], [place] [facility] 11/23/2024 09:41:56
--- OUTSIDE RECORDS SUMMARY | 2024-12-20 07:44 | XMS_ITS ---
Author Organization [facility] Address [address] [place] [address] Care Team Providers Care Mandarin Chinese Teacher Name Role Phone Raman WARE, Vandana Primary Care Provider Unavail able Eugene Iyer Jr Unavailable [phone] ALLERGIES Allergen (clinical drug ingredient) Drug/Non Drug Allergy documented on EMR Reaction Allergy Type Onset Date Status sertraline Sertraline Unknown Drug Allergy Activ e polymyxin B Polymyxin B Unknown Drug Allergy Act charly amoxicillin Amoxicillin Unknown Drug Allergy Act charly Oxycodone-Acetaminop he n ER Unknown Drug Allergy Active Romycin Unknown Drug Allergy Active acetaminophen / oxycodone Percocet Unknown Drug Allergy Active minocycline Minocycline Unknown Drug Allergy Act charly erythromycin Erythromycin Unknown Drug Allergy A ctive REASON FOR VISIT Patient presents today for DYSPHAGIA MEDICATIONS Medication SIG (Take, Route, Frequency, Duration) Notes Start Date End Date Status Methotrexate Sodium 2.5 MG Oral for 84 Active Lisinopril 40 MG Oral for 90 A ctive Omeprazole 20 MG Oral for 90 A ctive Tamsulosin HCl 0.4 MG Oral for 90 Active Leucovorin Calcium 10 MG TAKE 2 TABLETS BY MOUTH ONCE A WEEK THE DAY AFTER METHOTREXATE Oral for 84 Active Doxycycline Hyclate 100 MG Oral for 30 Active amLODIPine Besylate 5 MG TAKE 1 TABLET BY MOUTH 1 TIME EACH DAY. Oral for 14 Active Alendronate Sodium 70 MG Oral for 84 Active Aspirin 81 81 MG 1 tablet Orally Once a day for 30 day(s) 12/01/2024 Active Atorvastatin Calcium 40 MG TAKE 1 TABLET BY MOUTH EVERY DAY Oral for 20 Active Carbidopa 25 MG 1 tablet Orally Three times a day for 30 day(s) Active Entacapone 200 MG 1 tablet Orally Twice a day for 30 day(s) Active buPROPion HCl ER (XL) 300 MG 1 tablet in the morning Orally Once a day for 30 day(s) Active rOPINIRole HCl 2 MG 1 tablet 1 to 3 hours before bedtime Orally Once a day for 30 day(s) Active Mupirocin 2 % 1 application Externally Twice a day for 5 day(s) Active predniSONE 10 MG 1 tablet Orally Once a day for 30 day(s) as needed for inflamation Active PARoxetine HCl 30 MG 1 tablet in the morning Orally Once a day for 30 day(s) Active traZODone HCl 100 MG 1 tablet at bedtime Orally Once a day for 30 day(s) Active SOCIAL HISTORY Tobacco Use: Social History Observation Description Date Details (start date - stop date) Never Smoker NA - NA Sex Assigned At : Social History Observation Description Sex Assigned At Unknown Tobacco Use/Smoking Question Answer Notes Patient is a nonsmoker Alcohol Screen Question Answer Notes Did you have a drink containing alcohol in the p ast year? No Points 0 Interpretation Negative PROBLEMS Problem Type ICD Code Onset Dates Problem Status W/U Status Risk SNOMED Code Notes Problem Dysphagia, unspecified type (R13.10) Active confirmed 16690420 Problem Long-term use of aspirin therapy (Z79.82) Active confirmed 166917893 Problem Gastroesophageal reflux disease, unspecified whether esophagitis present (K21.9) Active confirmed 760394293 VITAL SIGNS Temperature 97.7 degrees Fahrenheit 12/01/19 25 Blood pressure systolic 001 mm Hg 12/01/19 25 Blood pressure diastolic 01 mm Hg 025 Height 70 in 12/01/2024 Weight 148 lbs 12/01/2024 BMI 21.23 kg/m2 12/01/2024 Encounters Encounter Location Date Provider Diagnosis [facility] [address] [facility] [address] [place] [address] 12/01/2024 Eugene Iyer Jr Dysphagia, unspecified type R13.10 ; Long-term use of aspirin therapy Z79.82 and Gastroesophageal reflux disease, unspecified whether esophagitis present K21.9 ASSESSMENTS Encounter Date Diagnosis Assessment Notes Treatment Notes Treatment Clinical Notes 12/01/2024 Dysphagia, unspecifi ed type (ICD-10 - R13.10) Endoscopy material was printed 12/01/2024 Long-term use of aspirin therapy (ICD-10 - Z79.82) 12/01/2024 Gastroesophageal ref lux disease, unspecified whether esophagitis present (ICD-10 - K21.9) PLAN OF TREATMENT Treatment Notes Assessment Notes Dysphagia, unspecified type Endoscopy jose smith was printed Future Test Test Name Order Date UPPER GI ENDOSCOPY 12/01/2024 Next Appt Details Follow Up: 1 Year, Reason: Provider Name:Eugene domingo Jr, 01/14/2025 09:20:00 AM, [address] [place] [address] , [place], [place], [phone], Progress Notes * Examination Category Sub-Category Detail Notes General Examination GENERAL APPEARANCE: in no ac inaja distress HEAD: normocephalic EYES: sclera non-icteric NECK/THYROID: no lymphadenopathy HEART: S1, S2 normal, no mu rmurs CHEST: normal shape and exp ansion LUNGS: clear to auscultatio n bilaterally ABDOMEN: soft, nontender, non distended, bowel sounds present, no organomegaly SKIN: anicteric EXTREMITIES: no clubbing, cyanosi s, or edema. A resting tremor is present. PSYCH: cognitive function i ntact ORAL CAVITY: mucosa moist
--- OUTSIDE RECORDS SUMMARY | 2024-12-20 07:44 | XMS_ITS | Data Portability ---
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 We discussed trigger [...] available 04/01/2024 11:49:58 05/13/2024 05/13/2024 The above findings were discussed in detail today with patient. [...] were discussed. Treatment options include activity modification, anti-inflammatori es, physical therapy, or consideration for a cortisone [...] discussed treatment options which include activity modification, anti-inflammatory , another steroid injection, or consideration for surgery. [...] available 08/12/2024 09:35:17 10/21/2024 10/21/2024 The above findings were discussed in detail today with the patient. 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 We discussed treatment options including activity modification, bracing, anti-inflammatori es or cortisone injection. He like to proceed [...] agreement the plan. Not available 10/21/2024 09:07:28 11/23/2024 11/23/2024 IMPRESSION: 79-year-old hqgtu-zyvi-tzcngj nt man with left shoulder glenohumeral arthritis [...] Time Details Appointments FOLLOW UP 2024 08:45A Lc Salazar MD Not available Not available Not available Lab None recorde d. Referral None recorde d. Procedures None recorde d. Surgeries None recorde d. Imaging XR, shoulde r, 2 or more view 2023 024 [facility], [address], [address], [place], [address], 05/13/2024 15:34:12 XR, wrist, 3 or more view 2023 024 [facility], [address], [place], [address], 04/01/2024 13:06:37 Medication Orders lidocai ne (PF) 10 mg/mL (1 %) injecti on solutio n 2024 025 [email or web address] Not available 11/23/2024 15:38:24 Marcain e (PF) 0.5 % (5 mg/mL) injecti on solutio n 2024 025 [email or web address] Not available 11/23/2024 15:38:24 triamci nolone acetoni de 40 mg/mL suspens ion for injecti on 2024 025 [email or web address] Not available 11/23/2024 15:38:24 lidocai ne (PF) 10 mg/mL (1 %) injecti on solutio n [address]/Pharmacy #[id number], [address] [place], [address], 10/21/2024 13:13:53 triamci nolone acetoni de 40 mg/mL suspens ion for injecti on [address]/Pharmacy #[id number], [address] [place], [address], 10/21/2024 13:13:53 diclofe nac 1 % topical gel 2024 025 [facility]/Pharmacy #[id number], [address] [place], [address], 10/21/2024 09:08:00 lidocai ne (PF) 10 mg/mL (1 %) injecti on solut n [address]/Pharmacy #[id number], [address] [place], [address], 08/12/2024 08:54:35 triamci nolone acetoni de 40 mg/mL suspens ion for injecti on 2023 024 [email or web address] Not available 08/12/2024 09:02:17 lidocai ne (PF) 10 mg/mL (1 %) injecti on solutio n [address]/Pharmacy #[id number], [address] [place], [address], 08/12/2024 08:54:35 triamci nolone acetoni de 40 mg/mL suspens ion for injecti on [email or web address]/Pharmacy #0693, [address] [facility] [place], [address], 08/12/2024 08:54:35 lidocai ne (PF) 10 mg/mL (1 %) injecti on solutio n 2023 [id number] [address] [facility] [place], [address], 05/13/2024 15:34:12 triamci nolone acetoni de 40 mg/mL suspens ion for injecti on [email or web address]/Pharmacy #0693, [address] [facility] [place], [address], 08/12/2024 08:32:28 lidocai ne (PF) 10 mg/mL (1 %) injecti on solutio n 2023 024 [facility]/Pharmacy #[id number], [address] [place], [address], 04/01/2024 13:06:37 triamci nolone acetoni de 40 mg/mL suspens ion for injecti on [email or web address]/Pharmacy #0693, [address] [place], [address], 08/12/2024 08:32:28 Patient TargetsNo targets recorded. Patient Instructions Encounter Date Encounter Id Patient Instructions Last Modified By Organization Details Last Modified Time 04/01/2024 [id number] You have been provided with a cortisone [...] and subluxation. Not available 04/01/2024 11:48:44 05/13/2024 [id number] You have been provided with a cortisone [...] findings noted. Not available 05/13/2024 11:54:26 08/12/2024 [id number] You have been provided with a cortisone [...] portal TAMIE. Not available 08/12/2024 09:33:27 10/21/2024 [id number] You have been provided with a cortisone [...] Closed fracture of distal end of radius 85146307 Active 2023 Leidy frost MD [address], [place], [address], [place] [facility] 4 13:08:08 Osteoarthro sis of the carpometaca rpal joint of the thumb 11584969 Active 2023 Leidy frost MD [address], [place], [address], [place] [facility] 4 13:08:36 Arthritis of left glenohumera l joint 6127042677217 100 Active 2023 Leidy frost MD [address], [place], [address], [place] [facility] 4 11:54:47 Triggering of digit 285082932 Active 2023 Leidy frost MD [address], [place], [address], [place] [facility] 4 11:56:43 Arthritis of first carpometaca rpal joint of right hand 3338005872256 100 Active 2024 Leidy frost MD [address], [place], [address], [place] [facility] 5 09:05:52 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 Procedures Surgical History Date Name Laterality Status Provider Name and Address Organization Details Recorded Time 11/23/19 25 AJR Shoulder GH Inj completed Edwardo Salazar MD [address], [place], [address], [place] [facility] 11/23/2024 09:36:38 10/21/19 25 LES finger joint injection completed Leidy Langford MD [address] [facility], [place], [address], [place] [facility] 10/21/2024 09:05:14 08/12/20 24 LES finger joint injection completed Leidy Langford MD [address], [place], [address], [place] [facility] 08/12/2024 09:33:13 08/12/20 24 LES Subacromial Shoulder Inj completed Leidy Langford MD [address], [place], [address], [place] [facility] 08/12/2024 09:32:56 05/13/20 24 LES Subacromial Shoulder Inj completed Leidy Langford MD [address], [place], [address], [place] [facility] 05/13/2024 11:53:24 04/01/20 24 LES trigger finger/De Quervain's injection completed Leidy Langford MD [address] [facility],[address], [place], [address], [place] [facility] 04/01/2024 11:47:54 02/26/20 24 LES finger joint injection completed Leidy Langford MD [address] [facility],[address], [place], [address], [place] [facility] 02/26/2024 13:10:34 Imaging Results None recorded. Procedure Notes None recorded. Medical Equipment None Reported. Allergies Allergen ID Allergen Name Allergen Category Reaction Reaction Severity Criticality Documentation Date Start Date Code Code System Note Provider Name and Address Organization Details Recorded Time 09054 acetamino phen / oxycodone medicatio n Not available Not available Not available 02/26/2024 30226 3 RxKostas Duggan null, [place] [facility] 4 09:31:06 95503 oxycodone medicatio n Not available Not available Not available 02/26/2024 7804 Eloisa Duggan null, [place] [facility] 4 09:31:25 33920 amoxicill in medicatio n Not available Not available Not available 02/26/2024 723 Eloisa Duggan null, [place] [facility] 4 09:31:33 30706 erythromy leisa medicatio n Not available Not available Not available 02/26/2024 4053 Eloisa Duggan null, [place] [facility] 4 09:31:43 15315 minocycli ne medicatio n Not available Not available Not available 04/01/2024 6980 Eloisa Duggan null, [place] [facility] 4 11:19:40 44639 sertralin e medicatio n Not available Not available Not available 04/01/2024 61350 Eloisa Duggan null, [place] [facility] 4 11:19:48 Medications Name Sig Start [...] Available Not Available Not Available [email or web address] @ [facility] 08/12 completed Not Available Not Available [...] Updated DateTime 08/12/2024 177.8 cm 22 kg/m2 81482.[address] [place] [facility], 08/12/2024 08:33:47 Date Recorded Body height Body mass index (BMI) Body weight Provider Name and Address Organization Details Last Updated DateTime 10/21/2024 177.8 cm 22 kg/m2 60277.[address] [place] [facility] 10/21/2024 08:55:09 Social History Question Answer Notes LastModified by Organizat ion Details LastModified Time Tobacco Smoking Status Never Smoker Cassidy Duggan null, [place] - [facility] 02/26/2024 10:27:52 What Is Your Level Of Alcohol Consumption? None [email or web address] Information not available 02/26/2024 Do You Use Any Illicit Or Recreational Drugs? No [email or web address] Information not available 02/26/2024 Do You Or Have You Ever Used Any Other Forms Of Tobacco Or Nicotine? No [email or web address] Information not available 02/26/2024 Sex: Unknown Functional [...] Anemia N Brain Injury N Heart Attack ([place]) N Osteopenia N Diabetes N Bleeding Disorder N Seizures/Epilepsy N AIDS/HIV N Congestive Heart Failure (CHF) N Asthma N Amputation N Reflux/GERD Y Sleep Apnea N Hepatitis N Aneurysm N Heart Disease N Pulmonary Embolism N Hypertension Y Osteoporosis Y Past Encounters Encounter ID Performer Location Encounter Start Date Encounter Closed Date Diagnosis/Indication Diagnosis SNOMED-CT Code Diagnosis ICD10 Code Diagnosis Note [id number] MD BLANCO [facility] [address] [address] 02/26/2024 09:18:47 02/26/2024 10:20:59 Pain of left wrist 6087483738 81315 M25.532 Additional diagnosis detail: Left wrist pain Closed fra cture of distal end of radius 11442118 S52.572A Additional diagnosis detail: Other closed intra-venkata cular fracture of distal end of left radius, initial encounter Osteoarthr osis of the carpometacarpal joint of the thumb 44041340 M18.12 Additional diagnosis detail: Primary osteoarthr itis of first carpometac arpal joint of left hand [id number] MD [facility] [address] [address] 04/01/2024 11:09:01 04/01/2024 11:44:29 Closed fracture of distal end of radius 26586832 S52.572A Additional diagnosis detail: Other closed intra-venkata cular fracture of distal end of left radius, initial encounter Osteoarthr osis of the carpometacarpal joint of the thumb 24771111 M18.12 Additional diagnosis detail: Primary osteoarthr itis of first carpometac arpal joint of left hand Triggering of digit 2399 66253 M65.332 Additional diagnosis detail: Trigger middle finger of left hand, trigger ring finger of left hand [id number] MD [facility] [address] [facility] [address] [place] [address] 05/13/2024 10:26:20 05/13/2024 11:10:39 Closed fracture of distal end of radius 14129469 S52.572A Additional diagnosis detail: Other closed intra-venkata cular fracture of distal end of left radius, initial encounter Osteoarthr osis of the carpometacarpal joint of the thumb 10587436 M18.12 Additional diagnosis detail: Primary osteoarthr itis of first carpometac arpal joint of left hand Chronic pa in of left upper limb 4718784025 5090315 M25.512 G89.29 Additional diagnosis detail: Chronic left shoulder pain Pain of le ft shoulder joint 8734183397 6356042 M25.512 Additional diagnosis detail: Pain, joint, shoulder, left Arthritis of left glenohumeral joint 6785423137 195219 M19.012 Triggering of digit 2399 01461 M65.342 M65.332 Additional diagnosis detail: Trigger finger, left ring fingerAddi tional diagnosis detail: Trigger finger, left middle finger [id number] MD [facility]AN[facility] [address] [facility] [address] [place] [address] 08/12/2024 08:16:17 08/12/2024 08:54:36 Arthritis of left glenohumeral joint 6758185046 413298 M19.012 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 6676429884 218707 M18.12 [id number] [facility] [address] [facility] [address] [place] [address] 10/21/2024 08:09:50 10/21/2024 09:19:40 Osteoarthrosis of the carpometacarpal joint of the thumb 84611312 M18.12 Additional diagnosis detail: Primary osteoarthr itis of first carpometac arpal joint of left hand 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 1831167024 730286 M18.11 Osteoarthr itis of finger joint of right hand 4950539902 6875004 M15.1 [id number] MD BLANCO [facility] [address] [facility] [address] [place] [address] 11/23/2024 08:34:37 11/23/2024 09:36:16 Arthritis of left glenohumeral joint 7550279834 614916 M19.012 Health Concerns Section Related Observation LastModified by Organization Detai ls LastModified Time None Recorded Concern Status LastModified by Organization Details LastModified Time None Recorded Advance Directives Directive None Recorded Payers Encounter Date Sequence Insurance Name Policy Number Policy Carrillo Covered Member ID Carrillo Member ID Guarantor Name 04/01/2024 1 [facility] (MEDICARE REPLACEMENT PPO) [id number] Caleb Martínez [id number] Caleb Martínez 05/13/2024 1 [place] PPO) [id number] Caleb Mejiat [id number] Caleb Martínez 08/12/2024 1 [place] P[place]) [id number] Caleb Mejiat [id number] Caleb Martínez 10/21/2024 1 [place] PPO) [id number] Caleb Crainaert [id number] Caleb Martínez 11/23/2024 1 [facility] PPO) [id number] Caleb Crainaert [id number] Caleb Martínez Notes Date Note Type Note Provider Name and Address Organization Details Recorded Time 04/01/2024 text/html He presents for follow-up of [...] of years ago. Leidy Langford MD [address] [address], [place], [address], [place] [facility] 04/04/2024 21:14:10 05/13/2024 text/html He presents [...] and pain with activities. He has tried agmr-gwg-kvsgwjl medications with have not helped his pain significantly. Leidy Langford MD [address] [facility] [address], [place], [address], [facility] - [facility] P 05/13/2024 11:57:41 08/12/2024 text/html He returns [...] were previously injected. Leidy Langford MD [address] [facility],[address], [place], [address], [facility] - [facility] P 08/12/2024 09:36:08 10/21/2024 text/html He presents [...] helpful. 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 He does have pain in his left shoulder for which I gave him a cortisone injection on 08/12/2024 for glenohumeral joint arthritis. Leidy Langford MD [address] [facility],[address] [address], [place], [address], [facility] 10/21/2024 09:51:15 11/23/2024 text/html 79-year-old zyjqm-qsdm-wjutcnes man with left shoulder pain for years. 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 Edwadro Salazar MD [address] [facility] [address], [place], [address], [facility] - [facility] P 11/23/2024 09:41:56
--- OUTSIDE RECORDS SUMMARY | 2024-12-20 07:45 | XMS_ITS | Clinical Summary ---
Author Organization [facility] Address [address] [place] [address] Phone Care Team Providers Care Application Operations Engineer Name Role Phone Adalberto Zepeda Primary Care Provider [phone] Allergies Active Allergy Reactions Criticality Noted Date Comments Amoxicillin Swelling Medium 04/19/2011 Other Reaction(s): Rash/Dermatitis eye swelling Erythromycin Skin Problems High 01/21/2018 Minocycline Other High 12/20/2009 Changed color of skin greenish yellow Oxycodone Rash Medium 12/24/2017 Oxycodone-Acetaminophen Rash Medium 08/25/2024 Polymyxin B Rash Medium 08/16/2019 Sertraline Rash Medium 08/16/2019 Medications atorvastatin (LIPITOR) 20 mg tablet Take 1 tablet (20 mg total) by mouth 1 (one) time each day. 02/05/20 23 Active buPROPion (WELLBUTRIN) 100 mg tablet Take 1 tablet (100 mg total) by mouth 2 (two) times a day. Active carbidopa-levo dopa (SINEMET) 25-100 mg per tablet Take 1 tablet by mouth 6 (six) times a day. 06/09/20 20 Active doxycycline (VIBRAMYCIN) 100 mg capsule TAKE 1 CAPSULE BY MOUTH TWICE DAILY IN THE MORNING AND IN THE EVENING WITH FOOD. 12/27/19 23 Active doxycycline (ADOXA) 100 mg tablet Take 1 tablet (100 mg total) by mouth 2 (two) times a day. Active entacapone (COMTAN) 200 mg tablet Take 1 tablet (200 mg total) by mouth 6 (six) times a day. 08/02/20 22 Active folic acid (FOLVITE) 1 mg tablet Take 1 tablet (1 mg total) by mouth 1 (one) time each day. 05/22/20 21 Active hydroxychloroq uine (PLAQUENIL) 200 mg tablet TAKE 1 TAB TWICE DAILY X5 DAYS A WEEK AND 1 TAB DAILY X2 DAYS A WEEK 02/05/20 24 Active ketoconazole (NIZORAL) 2 % cream Apply 1 Application topically 2 (two) times a day. Active lidocaine 0.5% (SOLARCAINE) 0.5 % gel external gel Apply 5 g topically 2 times daily as needed. 08/22/20 21 Active lisinopril (PRINIVIL,ZEST RIL) 40 mg tablet Take 1 tablet (40 mg total) by mouth 1 (one) time each day. 02/05/20 23 Active LORazepam (ATIVAN) 0.5 mg tablet Take 1 tablet (0.5 mg total) by mouth 1 (one) time each day. 08/02/20 22 Active melatonin 3 mg tablet Take 1 tablet (3 mg total) by mouth at bedtime. Active methotrexate 2.5 mg tablet Take 6 tablets (15 mg total) by mouth 1 (one) time per week 10/11/20 Active mirtazapine (REMERON) 30 mg tablet Take 1 tablet (30 mg total) by mouth at bedtime. Active mupirocin (BACTROBAN) 2 % ointment Apply topically. Active tamsulosin (FLOMAX) 0.4 mg 24 hr capsule Take 1 capsule (0.4 mg total) by mouth 1 (one) time each day. 07/29/20 22 Active traZODone (DESYREL) 50 mg tablet Take [...] aspirin 81 mg capsule Take by mouth. Activ e PARoxetine (PAXIL) 10 mg tablet Take 1 tablet (10 mg total) by mouth 1 (one) time each day in the morning. Active rOPINIRole (REQUIP) 2 mg tablet Take 1 tablet (2 mg total) by mouth. 05/25/20 19 Active traMADoL (ULTRAM) 50 mg tablet Take 1 tablet (50 mg total) by mouth. 08/06/20 24 Active leucovorin 10 mg tablet TAKE 1 TABLET BY MOUTH EVERY WEEK. TAKE THE DAY AFTER YOU TAKE METHOTREXATE 06/03/20 24 Active omeprazole (PriLOSEC) [address] capsule TAKE 1 CAPSULE TWICE DAILY 180 capsule 1 10/19/20 24 Active amLODIPine (NORVASC) 5 mg tablet TAKE 1 TABLET BY MOUTH 1 TIME EACH DAY. 28 tablet 12/08/19 25 Active amLODIPine (NORVASC) 5 mg tablet Take 1 tablet (5 mg total) by mouth 1 (one) time each day. 90 tablet 1 08/30/20 24 025 Discontinued Active Problems Problem Noted Date Diagnosed [...] thomas 01/28 f/up in 1 year advised Immunizations Name Administration Dates Next Due Pfizer [...] negative examination. UPPER GASTROINTESTINAL ENDOSCOPY 02/27/2018 PROCEDURE: AL UPPER GI ENDOSCOPY PERFORMED; COMMENT: Normal upper [...] Recorded Sex Assigned at Not on file Legal Sex Male 6:54 PM EST Gender Identity Not on file Sexual Orientation Not on file Obstetrics History Last Filed Vital Signs Vital Sign Reading Time Taken Comments Blood Pressure 126/56 09/08/2024 9:36 AM EST Pulse 62 09/08/2024 9:36 AM EST Temperature 36.5 ??C (97.7 ??F) 09/08/2024 9:[address] Respiratory Rate 18 09/08/2024 9:36 AM EST Oxygen Saturation 99% 09/08/2024 9:36 AM EST Inhaled Oxygen Concentration - - Weight 68.5 kg (151 lb) 09/08/2024 9:36 AM EST Height 175.3 cm (5' 9 ) 09/08/2024 9:36 AM EST Body Mass Index 22.3 09/08/2024 9:36 AM EST Plan of Treatment Upcoming Encounters Date Type Department Care Team (Late st Contact Info) Description 12/27/2024 12:30 PM EDT Office Visit Adult Medicine [facility] [address] [place] [address] Adalberto Zepeda PA [address] [place] [address] 05/24/2025 9:30 AM EDT Office Visit [facility] Hematology Oncology [address] [place] [phone] Katja Lainez MD [address] [place] [phone] Health Maintenance Due Date Last Done Comments RSV Immunization Patients 60+ Years Old (1 - 1-dose 75+ series) 2019 Depression Screening 09/28/2022 Falls Risk Assessment 09/28/2022 Medicare Annual Wellness Visit 09/28/2022 Social [...] , 08/06/2023, Additional history exists Pneumococcal Vaccine: 50+ Years Completed 08/10/2024, 07/20/2016, 02/26/2016, Additional history [...] patient's age to complete this topic Meningococcal B Vacine Aged Out No lo nger eligible based on patient's age to complete [...] 4 Care Plan Impaired Tissue No Kusum Messina, hook puller volume breakdown reduced by X% by week 8 Care Plan Impaired Tissue No Kusum Messina, hook puller volume breakdown reduced by X% by week 12 Care Plan Impaired Tissue No Kusum Messina, RN Quit using tobacco (cigarettes, smokeless, etc) Care Plan Education needed on impact of smoking on wound No Kusum Messina, RN Reduce tobacco use (cigarettes, smokeless, etc) Care Plan Education needed on impact of smoking on wound No Kusum Messina, TIFFANIE Decrease Wound Volume by X% by date (in notes) Care Plan Education needed on impact of smoking on wound No Kusum Messina, RN Patient and Caregiver Understand Wound Care Education Care Plan Education needed related to ulceration/compr omised skin integrity. No Kusum Messina RN Additional Health Concerns Active Problems Noted Date Diagnosed Date Impaired Tissue 09/02/2024 Education needed on impact of smoking on wound 1 11/02/2023 Education needed related to ulceration/compromised skin integrity. 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
--- OUTSIDE RECORDS SUMMARY | 2024-12-20 07:45 | XMS_ITS | Patient Health Record ---
Author Organization [facility] Address [address] [place] [address] Care Team Providers Care Dowel Inspector Name Role Phone Raman WARE, Vandana Primary Care Provider Unavail able Eugene Iyer Jr Unavailable ALLERGIES Allergen (clinical drug ingredient) Drug/Non Drug Allergy documented on EMR Reaction Allergy Type Onset Date Status amoxicillin Amoxicillin Unknown Drug Allergy Act charly Oxycodone-Acetaminop he n ER Unknown Drug Allergy Active Romycin Unknown Drug Allergy Active acetaminophen / oxycodone Percocet Unknown Drug Allergy Active minocycline Minocycline Unknown Drug Allergy Act charly erythromycin Erythromycin Unknown Drug Allergy A ctive sertraline Sertraline Unknown Drug Allergy Activ e polymyxin B Polymyxin B Unknown Drug Allergy Act charly REASON FOR REFERRAL Referring Provider First Name Vandana Referring Provider Last Name Raman Referred Organization [facility] Referred Provider Eugene Iyer Jr Referred Address [address] [place] [address],[address],[place], [place],[address], Referred Provider Specialty Gastroentero logy Referral Priority Routine MEDICATIONS Medication SIG (Take, Route, Frequency, Duration) Notes Start Date End Date Status Carbidopa 25 MG 1 tablet Orally Three times a day for 30 day(s) Active Methotrexate Sodium 2.5 MG Oral for 84 Active Entacapone 200 MG 1 tablet Orally Twice a day for 30 day(s) Active Lisinopril 40 MG Oral for 90 A ctive buPROPion HCl ER (XL) 300 MG 1 tablet in the morning Orally Once a day for 30 day(s) Active predniSONE 10 MG 1 tablet Orally Once a day for 30 day(s) as needed for inflamation Active Omeprazole 20 MG Oral for 90 A ctive PARoxetine HCl 30 MG 1 tablet in the morning Orally Once a day for 30 day(s) Active Doxycycline Hyclate 100 MG Oral for 30 Active rOPINIRole HCl 2 MG 1 tablet 1 to 3 hours before bedtime Orally Once a day for 30 day(s) Active Tamsulosin HCl 0.4 MG Oral for 90 Active Mupirocin 2 % 1 application Externally Twice a day for 5 day(s) Active Leucovorin Calcium 10 MG TAKE 2 TABLETS BY MOUTH ONCE A WEEK THE DAY AFTER METHOTREXATE Oral for 84 Active amLODIPine Besylate 5 MG TAKE 1 TABLET BY MOUTH 1 TIME EACH DAY. Oral for 14 Active Alendronate Sodium 70 MG Oral for 84 Active traZODone HCl 100 MG 1 tablet at bedtime Orally Once a day for 30 day(s) Active Aspirin 81 81 MG 1 tablet Orally Once a day for 30 day(s) 12/01/2024 Active Atorvastatin Calcium 40 MG TAKE 1 TABLET BY MOUTH EVERY DAY Oral for 20 Active IMMUNIZATIONS Vaccine Route Administration Date Status Comme nts Influenza Unknown 12/09/2023 Administered SOCIAL HISTORY Tobacco Use: Social History Observation [...] W/U Status Risk SNOMED Code Notes Problem Long-term use of aspirin therapy (Z79.82) Active confirmed 890080126 Problem Dysphagia, unspecified type (R13.10) Active confirmed 21048512 Problem Gastroesophageal reflux disease, unspecified whether esophagitis present (K21.9) Active confirmed 495614438 VITAL SIGNS Temperature 97.7 degrees Fahrenheit 12/01/2024 Blood pressure diastolic 01 mm Hg 12/01/2024 Height 70 in 12/01/2024 Blood pressure systolic 001 mm Hg 12/01/2024 Weight 148 lbs 12/01/2024 BMI 21.23 kg/m2 12/01/2024 Encounters Encounter Location Date Provider Diagnosis [facility] [address] [place] [address] 12/01/2024 Eugene Iyer Jr Dysphagia, unspecified type R13.10 ; Long-term use of aspirin therapy Z79.82 and Gastroesophageal reflux disease, unspecified whether esophagitis present K21.9 ASSESSMENTS Encounter Date Diagnosis Assessment Notes Treatment Notes Treatment Clinical Notes 12/01/2024 Long-term use of aspirin therapy (ICD-10 - Z79.82) 12/01/2024 Dysphagia, unspecifi ed type (ICD-10 - R13.10) Endoscopy material was printed 12/01/2024 Gastroesophageal ref lux disease, unspecified whether esophagitis present (ICD-10 - K21.9) PLAN OF TREATMENT Future Test Test Name Order Date UPPER GI ENDOSCOPY 12/01/2024 Next Appt Details Provider Name:Eugene domingo , 01/14/2025 09:20:00 AM, [address] [place] [address] , [place], [place], [phone], Insurance Providers Payer Name Payer Address Payer Phone Subscriber Number Group Number Insured Name Patient Relationship to Insured Coverage Start Date Coverage End Date [facility] [employer] [address] [place] [id number] KOFI STANLEY Self - patient is the insured MEDICAL (GENERAL) HISTORY Medical History History ICD Code hypertension Cardiomyopathy/bradycardia/ASCVD PTSD/anxiety/depression Hypertension Hyperlipidemia Parkinson's disease Hyperlipidemia Rheumatoid/osteoarthritis Chronic kidney disease Surgical History Surgery Date(Month/Year) Tonsillectomy colonoscopy 2019, [place] Lithotripsy for nephrolithiasis
--- OUTSIDE RECORDS SUMMARY | 2024-12-20 07:45 | XMS_ITS | Clinical Summary ---
Author Organization [facility] Address [address] [place] [address] Care Team Providers Care Cytogenetics Laboratory Manager Name Role Phone Adalberto Zepeda PA-C Primary [...] age to complete this topic Care Teams Cytogenetics Laboratory Manager Relationship Specialty Start Date End Date Adalberto Zepeda, [facility] PCP - General Medical Services 08/15/21
== END ==
LOC: HO.CARD 07:40
PROVIDERS: PCP Physician Assistant Medical; Visit Provider Internal Medicine
DX: I42.9 Cardiomyopathy, unspecified (principal)
CPT/HCPCS: 93306

== ENCOUNTER → 2024-12-20 07:44 | Outpatient (BNV) | payer MEDICARE, SELFPAY | PROVIDERS: PCP Physician Assistant Medical; Visit Provider Internal Medicine Cardiovascular Disease | DX: I35.0 Nonrheumatic aortic (valve) stenosis (principal); I35.8 Other nonrheumatic aortic valve disorders; I34.81 Nonrheumatic mitral (valve) annulus calcification | CPT/HCPCS: 93306 ==

== ENCOUNTER 2025-01-03 14:19 | Outpatient (AMB) | payer MEDICARE, SELFPAY ==
[2025-01-03 14:28] VITALS: BP 120/66; PULSE 70
--- NOTE | 2025-01-03 14:28 | MHC.OFFVIS ---
Vital Signs 01/03/25 14:28 Height 5 ft 8 in BP 120/66 Blood Pressure Location Lt brachial Position Sitting Pulse 70 Pulse Source Pulse Oximeter Intake Visit Reasons: 6 mth f/up Allergies sertraline Allergy (Intermediate, Verified 10/04/24 08:14) nausea,dizziness acetaminophen [From Percocet] Allergy (Unknown, Verified 10/04/24 08:14) unknown amoxicillin Allergy (Unknown, Verified 10/04/24 08:14) unknown erythromycin base Allergy (Unknown, Verified 10/04/24 08:14) unknown minocycline Allergy (Unknown, Verified 10/04/24 08:14) unknown oxycodone [From Percocet] Allergy (Unknown, Verified 10/04/24 08:14) unknown polymyxinb tmp Allergy (Intermediate, Uncoded 07/08/24 10:32) swelling, rash Medication List - Last Reconciled 01/03/25 by Dioni Jacobson MD alendronate 70 mg PO QWEEK amlodipine 10 mg PO DAILY ammonium lactate 12% appl topical aspirin 81 mg PO DAILY atorvastatin 40 mg PO DAILY bupropion HCl 200 mg PO DAILY carbidopa-levodopa 25-100 mg 1 tab PO .6 x a day diclofenac sodium 1% 4 grams topical QID doxycycline hyclate 100 mg PO BID entacapone 200 mg PO .6 x a day with carbi leucovorin calcium 20 mg (2 x 10 mg) PO QWEEK lisinopril 40 mg PO DAILY meloxicam 7.5 mg PO DAILY methotrexate sodium 10 mg (4 x 2.5 mg) PO QWEEK metronidazole 0.75% 1 appl topical DAILY omeprazole 20 mg PO DAILY paroxetine HCl (Paxil) 10 mg PO DAILY ropinirole 2 mg PO BID tamsulosin 0.4 mg PO BEDTIME trazodone 100 mg PO BEDTIME PRN HPI Comments Details: Caleb returns for follow-up. In the past, he was having some shortness of breath, but no clear anginal-type chest pains. Echocardiogram with mildly decreased LVEF of around 52%. He also had an abnormal stress test showing anterior wall ischemia. That led to cardiac catheterization. However, no interventions. He also has history of Parkinson's disease. Since last seen, no new cardiac symptoms. No clear-cut angina. Balance issues related to Parkinson's disease. Apparently had a fall recently. Uses a cane. 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 Gout Footdrop BPH (benign prostatic hyperplasia) Hypertension Diverticulosis Thrombocytopenia Acid reflux Basal cell carcinoma Cholelithiasis Nephrolithiasis PTSD (post-traumatic stress disorder) Parkinsons Osteoarthritis of hands, bilateral Chronic sinus bradycardia Restless leg Seronegative rheumatoid arthritis Dyslipidemia Surgical History S/P cardiac cath S/P trigger finger release Hx of endoscopy S/P TURP Hx of tonsillectomy Hx of lithotripsy Hx of colonoscopy Family History Mother Arthritis Social History Household Members: Spouse Housing: House Do you presently have visiting nurse or other home services: No Alcohol intake: never Patient Tobacco Use Status: Never used Tobacco e-Cigarette/Vaping Use: Never Used service: Yes Current occupational status: retired 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 Review of Systems Const Denies weakness ENT Denies dizziness Card Denies chest pain, Denies chest pain with activity, Denies syncope, Denies rapid heart rate, Denies pedal edema, Denies edema, Denies leg edema, Denies lightheadedness, Denies palpitations, Denies dyspnea, Denies dyspnea on exertion and Denies orthopnea Resp Denies cough, Denies dyspnea and Denies dyspnea on exertion GI Denies hematochezia and Denies change in stool character Musc Denies abnormal gait, Denies muscle cramps, Denies muscle weakness, Denies numbness, Denies radiating pain into limb and Denies tingling Neuro Denies abnormal gait, Denies dizziness, Denies syncope, Denies numbness, Denies tingling and Denies weakness Endo Denies palpitations Physical Exam Vital Signs: Last Vital Signs Pulse 70 01/03/25 14:28 BP 120/66 01/03/25 14:28 Const General: comfortable and no acute distress Orientation/consciousness: patient oriented x3 HEENT Other: Unremarkable Head: Yes normal to inspection Neck Neck: Yes normal visual inspection Chest Chest palpation & inspection: normal inspection of the chest Resp Auscultation: clear to auscultation bilaterally Cardio Palpation: normal PMI Heart sounds: S1 normal heart sound present, S2 normal heart sound present, no gallops, Murmur heart sound present systolic II/ and no rubs GI Palpation (GI): Soft to palpation Back/Spine/Pelvis Other: unremarkable Skin General skin exam: no rashes or lesions noted Neuro General: patient oriented x3 Extrem General: Yes normal to inspection Psych Mental Status: mental status grossly normal Assessment & Plan Assessment & Plan (1) Atherosclerotic cardiovascular disease: Code(s): I25.10 - Atherosclerotic heart disease of [place] coronary artery without angina pectoris Category: Medical (2) Cardiomyopathy: Code(s): I42.9 - Cardiomyopathy, unspecified Category: Medical (3) Nonrheumatic aortic (valve) stenosis: Code(s): I35.0 - Nonrheumatic aortic (valve) stenosis Category: Medical Plan Cardiac studies reviewed. In the most recent echocardiogram, LVEF is 40-45%. Reported moderate aortic stenosis. In the earlier study, LVEF of 50%. Myocardial perfusion imaging study with [id number] intensity anterior wall ischemia. LVEF was 51%. Cardiac catheterization from 11/2023 with severe stenosis in a small branch from ramus and ostial OM1. Small vessels. Mild diffuse disease with heavy calcification, proximal LAD. Medical management has been recommended. Overall, we can treat for stable coronary disease. Shortness of breath could be multifactorial and could also be related to neurological issues, muscular weakness and deconditioning. Continue aspirin and statins. Last LDL 83 mg/dL. For hypertension, on lisinopril/amlodipine. We will follow in 6 months with an echocardiogram. Orders: Orders CA echo transthoracic complete 6 Months I35.0 - Nonrheumatic aortic (valve) stenosis Coding Level of Care Code Est Pt Level 4 (49295) Complex EM visit Add On G2211 Diagnoses Atherosclerotic cardiovascular disease I25.10 Cardiomyopathy I42.9 Nonrheumatic aortic (valve) stenosis I35.0
--- OUTSIDE RECORDS SUMMARY | 2025-01-03 16:46 | XMS_ITS | Patient Health Record ---
Author Organization [facility] Address [address] [place] [address] Care Team Providers Care Wire Bound Box Machine Operator Name Role Phone Raman WARE, Vandana Primary Care Provider Unavail able Eugene Iyer Jr Unavailable Allergies Allergen (clinical drug ingredient) Drug/Non Drug Allergy documented on EMR Reaction Allergy Type Onset Date Status polymyxin B Polymyxin B Unknown Drug Allergy Act charly amoxicillin Amoxicillin Unknown Drug Allergy Act charly Oxycodone-Acetaminop he n ER Unknown Drug Allergy Active Romycin Unknown Drug Allergy Active acetaminophen / oxycodone Percocet Unknown Drug Allergy Active minocycline Minocycline Unknown Drug Allergy Act charly erythromycin Erythromycin Unknown Drug Allergy A ctive sertraline Sertraline Unknown Drug Allergy Activ e Reason For Referral Referring Provider First Name Vandana Referring Provider Last Name Raman Referred Organization [facility] Referred Provider Eugene Iyer Jr Referred Address [address] [place] [address],[address],[place], [place],[address], Referred Provider Specialty Gastroentero logy Referral Priority Routine Medications Medication SIG (Take, Route, Frequency, Duration) Notes [...] MOUTH EVERY DAY Oral for 20 Active Immunizations Vaccine Route Administration Date Status Comme nts Influenza Unknown 12/09/2023 Administered Social History Tobacco Use: Social History Observation Description Date Details (start date - stop date) Never Smoker NA - NA Tobacco Use/Smoking Question Answer Notes Patient is a nonsmoker Alcohol Screen Question Answer Notes Did you have a drink containing alcohol in the p ast year? No Points 0 Interpretation Negative Problems Problem Type SNOMED Code ICD Code Onset Dates Problem Status W/U Status Risk Notes Problem 437510956 Long-term use of aspirin therapy (Z79.82) Active confirmed Problem 50249119 Dysphagia, unspecified type (R13.10) Active confirmed Problem 635725947 Gastroesophageal reflux disease, unspecified whether esophagitis present (K21.9) Active confirmed Vital Signs Temperature 97.7 degrees Fahrenheit 12/01/2024 Blood pressure diastolic 01 mm Hg 12/01/2024 Height 70 in 12/01/2024 Blood pressure systolic 001 mm Hg 12/01/2024 Weight 148 lbs 12/01/2024 BMI 21.23 kg/m2 12/01/2024 Encounters Encounter Location Date Provider Diagnosis [facility] [address] [place] [phone] 12/01/2024 Eugene Iyer Jr Dysphagia, unspecified type R13.10 ; Long-term use of aspirin therapy Z79.82 and Gastroesophageal reflux disease, unspecified whether esophagitis present K21.9 Assessments Encounter Date Diagnosis (ICD Code) Assessment Notes Treatment Notes Treatment Clinical Notes Section Notes 12/01/2024 Long-term use of aspirin therapy (ICD-10 - Z79.82) We discussed dysphagia today. We recommended further evaluation of his symptoms with upper endoscopy. He may benefit from empiric balloon dilation of the upper or lower esophageal sphincter depending on the findings. We discussed risks and benefits of the procedure today. He understands these and agrees to proceed. He is advised to stop aspirin one week before the procedure. 12/01/2024 Dysphagia, unspecified type (ICD-10 - R13.10) Endoscopy material was printed We discussed dysphagia today. We recommended further evaluation of his symptoms with upper endoscopy. He may benefit from empiric balloon dilation of the upper or lower esophageal sphincter depending on the findings. We discussed risks and benefits of the procedure today. He understands these and agrees to proceed. He is advised to stop aspirin one week before the procedure. 12/01/2024 Gastroesophageal reflux disease, unspecified whether esophagitis present (ICD-10 - K21.9) We discussed dysphagia today. We recommended further evaluation of his symptoms with upper endoscopy. He may benefit from empiric balloon dilation of the upper or lower esophageal sphincter depending on the findings. We discussed risks and benefits of the procedure today. He understands these and agrees to proceed. He is advised to stop aspirin one week before the procedure. Plan Of Treatment Future Test Test Name Order Date UPPER GI ENDOSCOPY 12/01/2024 Next Appt Details Provider Name:Eugene Juaquin domingo , 01/14/2025 09:20:00 AM, [address] [place] [address] , [place], [place], [phone], Insurance Providers Payer Name Payer Address Payer Phone Subscriber Number Group Number Insured Name Patient Relationship to Insured Coverage Start Date Coverage End Date [facility] [employer] [address] [place] [id number] KOFI STANLEY Self - patient is the insured Medical (General) History Medical History History ICD Code hypertension Cardiomyopathy/bradycardia/ASCVD PTSD/anxiety/depression Hypertension Hyperlipidemia Parkinson's disease Hyperlipidemia Rheumatoid/osteoarthritis Chronic kidney disease Surgical History Surgery Date(Month/Year) Tonsillectomy colonoscopy 2019, [place] Lithotripsy for nephrolithiasis
--- OUTSIDE RECORDS SUMMARY | 2025-01-03 16:46 | XMS_ITS | Encounter Summary ---
Author Organization [facility] Address [address] [place] [address] Care Team Providers Care Boot And Shoe Repairman Name Role Phone Adalberto Zepeda Primary Care Provider [phone] Reason for Visit * Reason Comments Medication Review Encounter Details Date Type Department Care Team (Late st Contact Info) Description 12/27/2024 12:30 PM EDT Office Visit Adult Medicine [facility] [address] [place] [address] Adalberto Zepeda PA [address], [place] Tear of left biceps muscle, initial encounter (Primary Dx); Benign prostatic hyperplasia without lower urinary tract symptoms; Bradycardia; Essential tremor; Parkinson's disease without dyskinesia, unspecified whether manifestations fluctuate (CMS/HCC); Essential (primary) hypertension; Chronic venous hypertension (idiopathic) with inflammation of left lower extremity; Renal cyst Social History Tobacco Use Types Packs/Day Years Used Date Smoking Tobacco: Never Smokeless Tobacco: Never Tobacco Cessation:Counseling Given: Not Answered Alcohol Use Standard Drinks/Week Comments Not Asked 0 (1 standard drink = 0.6 oz pur e alcohol) Housing Instability Answer Date Recorde d Are you worried that in the next 2 months you may not have stable housing? No 12/20/2024 Food Access & Nutrition Answer Date Rec orded Do you have access to a vari ety of food including fruits and vegetables? Yes 12/20/2024 Access to Healthcare Answer Date Record ed Within the last 3 months, ho w many times did you visit the emergency department for your medical care? 0 12/20/2024 Health Literacy Answer Date Recorded How often do you need to hav e someone help you when you read instructions, pamphlets, or other written material from your doctor or pharmacy? Never 12/20/2024 Caregiver: How often do you need to have someone help you when you read instructions, pamphlets, or other written material from your doctor or pharmacy? Not on file 12/20/2024 Financial Risk Answer Date Recorded How hard is it for you to pa y for the very basics like food, housing, medical care, and air conditioning / heating? Patient declined 12/20/2024 Transportation Answer Date Recorded Has the lack of transportati on kept you from meetings, work, or from getting things needed for daily living? No Has the lack of transportati on kept you from medical appointments or from getting medications? No 12/20/2024 Social Isolation Answer Date Recorded How often do you feel lonely or isolated from those around you? Patient declined 12/20/2024 Food Risk Answer Date Recorded Within the past 12 months we worried whether our food would run out before we got money to buy more. Never true 12/20/2024 Within the past 12 months th e food we bought just didn't last and we didn't have money to get more. Never true 12/20/2024 Dependent Care Answer Date Recorded Do you need help finding or paying for care for your loved ones. For example, child protection specialist or elderly care for an older adult? No 12/20/2024 Education Answer Date Recorded Do you think completing more education or training, like finishing a GED, going to college, or learning a trade, would be helpful for you? N/A 12/20/2024 Employment and Income Answer Date Recor ded During the last four weeks, have you been actively looking for work? No 12/20/2024 Living Situation Answer Date Recorded What is your living situation? 0 12/20/2024 Sex and Gender Information Value Date Recorded Sex Assigned at Not on file Legal Sex Male 6:54 PM EST Gender Identity Not on file Sexual Orientation Not on file documented as of this encounter Last Filed Vital Signs Vital Sign Reading Time Taken Comments Blood Pressure 122/73 12/27/2024 12:32 PM EDT Pulse 65 12/27/2024 12:32 PM EDT Temperature 36.7 ??C (98 ??F) 12/27/2024 12:32 PM EDT Respiratory Rate 14 12/27/2024 12:32 PM EDT Oxygen Saturation - - Inhaled Oxygen Concentration - - Weight 70 kg (154 lb 6.4 oz) 12/27/2024 12:32 PM EDT Height 177.8 cm (5' 10 ) 12/27/2024 12:32 PM EDT Body Mass Index 22.15 12/27/2024 12:32 PM EDT documented in this encounter Ordered Prescriptions Prescription Sig Dispense Quantity Refills Last Filled Start Date End Date amLODIPine (NORVASC) 5 mg tablet Take 1 tablet (5 mg total) by mouth 1 (one) time each day. 90 tablet 3 12/27/2024 documented in this encounter Progress Notes * Melisa Andres MA - 12/27/2024 12:30 PM EDT Have you fallen in the past year? yes. Are you worried about falling? no. . * YASMIN Apple - 12/27/2024 12:30 PM EDT CHIEF COMPLAINT: Medication Review IDENTIFIER: Caleb Martínez is a 79 y.o. old male. HPI: This pleasant gentleman presents today for follow-up. Overall seems to be doing okay. He appears tohave torn his left bicep after he was lifting a box a couple months ago. He is following up with orthopedics for this. His left leg is finally healed up but he does have occasional pains around the site of the previous laceration. He states is not really bad enough to do anything about at this point. ROS: GENERAL: Negative for malaise, significant weight loss and fever RESPIRATORY: No cough, wheezing or shortness of breath CARDIOVASCULAR: Negative for chest pain, leg swelling and palpitations ENDOCRINE: Negative for cold or heat intolerance, polyuria, polydipsia and goiter NEURO: No persistent headache, fainting, seizures, strokes, TIAs, weakness, numbness or tingling PAST MEDICAL HISTORY: Patient Active Problem List Diagnosis Date Noted Chronic venous hypertension (idiopathic) with inflammation of left lower extremity 08/25/2024 Non-pressure chronic ulcer of other part of left lower leg limited to breakdown of skin ([facility]) 08/25/2024 Essential (primary) hypertension 08/25/2024 Wound infection 08/25/2024 Painful skin lesion 08/15/2021 Parkinson's disease ([facility]) 09/27/2019 Essential tremor 08/16/2019 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 LITHOTRIPSY PROCEDURE: HISTORICAL LITHOTRIPSY; COMMENT: laser stone remove x shruthi john PROSTATE SURGERY PROCEDURE:PROSTATE SURGERY TONSILLECTOMY PROCEDURE: HISTORICAL TONSILLECTOMY TURP / TRANSURETHRAL INCISION / DRAINAGE PROSTATE PROCEDURE: HISTORICAL TURP; COMMENT: dr. john 2016 UPPER GASTROINTESTINAL ENDOSCOPY 02/27/2018 PROCEDURE: [place] UPPER GI ENDOSCOPY PERFORMED; COMMENT: Normal upper GI findings, performed for the evaluation of extra mammary Paget's disease. SOCIAL HISTORY: Social History Tobacco Use Smoking status: Never Smokeless tobacco: Never Substance Use Topics Alcohol use: Not on file FAMILY HISTORY: Family History Problem Relation Name Age of Onset Arthritis Mother said to have RA Heart failure Mother Kidney failure Father Stroke Brother Hypertension Brother Diabetes Brother Other cancer Neg Hx no relatives with any cancer Family Status Relation Name Status Mother at age 89 chf Father at age 52 renal failure Brother Alive htn,cva Neg Hx (Not Specified) No partnership data on file MEDICATIONS DISCONTINUED/REORDERED: Medications Discontinued During This Encounter Medication Reason amLODIPine (NORVASC) 5 mg tablet Reorder ACTIVE MEDICATIONS: Outpatient Medications Marked as Taking for the 12/27/24 encounter (Office Visit) with YASMIN Apple Medication Sig Dispense Refill alendronate (FOSAMAX) 70 mg tablet Take 1 tablet (70 mg total) by mouth. amLODIPine (NORVASC) 5 mg tablet Take 1 tablet (5 mg total) by mouth 1 (one) time each day. 90 tablet 3 aspirin 81 mg capsule Take by mouth. atorvastatin (LIPITOR) 20 mg tablet Take 1 tablet (20 mg total) by mouth 1 (one) time each day. buPROPion (WELLBUTRIN) 100 mg tablet Take 1 tablet (100 mg total) by mouth 2 (two) times a day. buPROPion HCL, bulk, 100 % powder Take 200 mg by mouth. carbidopa-levodopa (SINEMET) 25-100 mg per tablet Take 1 tablet by mouth 6 (six) times a day. doxycycline (VIBRAMYCIN) 100 mg capsule entacapone (COMTAN) 200 mg tablet Take 1 tablet (200 mg total) by mouth 6 (six) times a day. folic acid (FOLVITE) 1 mg tablet Take 1 tablet (1 mg total) by mouth 1 (one) time each day. ketoconazole (NIZORAL) 2 % cream Apply 1 Application topically 2 (two) times a day. leucovorin 10 mg tablet TAKE 1 TABLET BY MOUTH EVERY WEEK. TAKE THE DAY AFTER YOU TAKE METHOTREXATE lidocaine 0.5% (SOLARCAINE) 0.5 % gel external gel Apply 5 g topically 2 times daily as needed. lisinopril (PRINIVIL,ZESTRIL) 40 mg tablet Take 1 tablet (40 mg total) by mouth 1 (one) time each day. LORazepam (ATIVAN) 0.5 mg tablet Take 1 tablet (0.5 mg total) by mouth 1 (one) time each day. meloxicam, bulk, 100 % powder Take 15 mg by mouth 1 (one) time each day. methotrexate 2.5 mg tablet Take 6 tablets (15 mg total) by mouth 1 (one) time per week mirtazapine (REMERON) 30 mg tablet Take 1 tablet (30 mg total) by mouth at bedtime. mupirocin (BACTROBAN) 2 % ointment Apply topically. omeprazole (PriLOSEC) [address] capsule TAKE 1 CAPSULE TWICE DAILY 180 capsule 1 PARoxetine (PAXIL) 10 mg tablet Take 1 tablet (10 mg total) by mouth 1 (one) time each day in the morning. predniSONE (DELTASONE) 10 mg tablet Take by mouth 1 (one) time each day with breakfast. rOPINIRole (REQUIP) 2 mg tablet Take 1 tablet (2 mg total) by mouth. tamsulosin (FLOMAX) 0.4 mg 24 hr capsule Take 1 capsule (0.4 mg total) by mouth 1 (one) time each day. traMADoL (ULTRAM) 50 mg tablet Take 1 tablet (50 mg total) by mouth. [DISCONTINUED] amLODIPine (NORVASC) 5 mg tablet TAKE 1 TABLET BY MOUTH 1 TIME EACH DAY. 28 tablet 0 ALLERGIES: Allergies Allergen Reactions Erythromycin Skin Problems Minocycline Other Changed color of skin greenish yellow Amoxicillin Swelling Other Reaction(s): Rash/Dermatitis eye swelling Oxycodone Rash Percocet [Oxycodone-Acetaminophen] Rash Polymyxin B Rash Sertraline Rash PHYSICAL EXAM: Visit Vitals BP 122/73 Pulse 65 Temp 36.7 ??C (98 ??F) (Temporal) Resp 14 Ht 1.778 m (70 ) Wt 70 kg (154 lb 6.4 oz) BMI 22.15 kg/m?? Smoking Status Never BSA 1.87 m?? General appearance: alert and oriented, in no acute distress Lungs: clear to auscultation bilaterally Heart: regular rate and rhythm, S1, S2 normal, no murmur, click, rub or gallop Extremities: extremities normal, warm and well-perfused; no cyanosis, clubbing, or edema Neurologic: Grossly normal LABS/IMAGING: Labs IMPRESSION: 1. Tear of left biceps muscle, initial encounter 2. Benign prostatic hyperplasia without lower urinary tract symptoms 3. Bradycardia 4. Essential tremor 5. Parkinson's disease without dyskinesia, unspecified whether manifestations fluctuate (CMS/HCC) 6. Essential (primary) hypertension 7. Chronic venous hypertension (idiopathic) with inflammation of left lower extremity 8. Renal cyst PLAN: 1. Left biceps tear patient is following with orthopedics in regards to this. 2. Declines any intervention for the left leg pain. For the most part it seems to be doing okay he only occasionally has pains. 3. Parkinson's, seems to be stable continues on Sinemet follows with neurology. 4. He recently had an echocardiogram showing a slightly decreased ejection fraction will be following up with cardiology. 5. Blood pressure under reasonable control. 6. Osteoporosis continues on Fosamax 7. Hyperlipidemia, continue statin I have applied the code G2211 to this patient???s visit as the primary care provider dealing with (list the condition that is/are complex) leading to the extensive work up, and management associated with the medical care of this patient. This patient???s serious conditions and complex medical conditions also required several consultants needing management and coordination through my office. I have reviewed all information as it pertains to the management of this patient for final approval. Advised the patient to call me if any problems. Patient understands the plan. Patient is in agreement with the plan. documented in this encounter Plan of Treatment Upcoming Encounters Date Type Department Care Team (Late st Contact Info) Description 05/24/2025 9:30 AM EDT Office Visit [facility] Hematology Oncology [address] [place] [id number] Katja Lainez MD [address] [place] [address] 07/04/2025 10:30 AM EDT Office Visit Adult Medicine [facility] [address] [place] [address] Adalberto Zepeda PA [address] [place] [address] Scheduled Orders Name Type Priority Associated Diagnoses Orde r Schedule Lipid panel with reflex to direct LDL Lab Routine Tear of left biceps muscle, initial encounter Benign prostatic hyperplasia without lower urinary tract symptoms Bradycardia Essential tremor Parkinson's Disease Without Dyskinesia, Unspecified Whether Manifestations Fluctuate (Cms/Hcc) Essential (primary) hypertension Chronic venous hypertension (idiopathic) with inflammation of left lower extremity Renal cyst 1 Occurrences starting 12/27/2024 until 12/27/2025 Comprehensive metabolic panel Lab Routine Tear of left biceps muscle, initial encounter Benign prostatic hyperplasia without lower urinary tract symptoms Bradycardia Essential tremor Parkinson's Disease Without Dyskinesia, Unspecified Whether Manifestations Fluctuate (Cms/Hcc) Essential (primary) hypertension Chronic venous hypertension (idiopathic) with inflammation of left lower extremity Renal cyst 1 Occurrences starting 12/27/2024 until 12/27/2025 CBC and differential Lab Routine Tear of left biceps muscle, initial encounter Benign prostatic hyperplasia without lower urinary tract symptoms Bradycardia Essential tremor Parkinson's disease without dyskinesia, unspecified whether manifestations fluctuate (CMS/HCC) Essential (primary) hypertension Chronic venous hypertension (idiopathic) with inflammation of left lower extremity Renal cyst 1 Occurrences starting 12/27/2024 until 12/27/2025 documented as of this encounter Goals Goal Patient Goal Type Associated Problems [...] smoking on wound No Kusum Messina RN Reduce tobacco use (cigarettes, smokeless, etc) [...] omised skin integrity. No Kusum Messina RN documented as of this encounter Visit Diagnoses Diagnosis Tear of left biceps muscle, initial encounter- Primary Benign prostatic hyperplasia without lower urinary tract symptoms Bradycardia Other specified cardiac dysrhythmias Essential tremor Parkinson's disease without dyskinesia, unspecified whether manifestations fluctuate (CMS/HCC) Essential (primary) hypertension Unspecified essential hypertension Chronic venous hypertension (idiopathic) with inflammation of left lower extremity Renal cyst Unspecified congenital cystic kidney disease documented in this encounter Discontinued Medications Medication Sig Discontinue Reason Start Date End Da te amLODIPine (NORVASC) 5 mg tablet TAKE 1 TABLET BY MOUTH 1 TIME EACH DAY. Reorder 12/08/2024 12/27/2024 documented as of this encounter Historical Medications * This list may reflect changes made after this encounter. QUEtiapine (SEROquel) 100 mg tablet Take 1 tablet (100 mg total) by mouth at bedtime. added in this encounter Additional Health Concerns Active Problems Noted Date Diagnosed Date Impaired Tissue 09/02/2024 Education needed on impact of smoking on wound 1 11/02/2023 Education needed related to ulceration/compromised skin integrity. 09/02/2024 Assessment Noted Time PHQ-9 Depression Total Score: 16 025 12:12 PM EST A fall risk assessment has been complete d for the patient 12/27/2024 12:31 PM EDT documented as of this encounter Care Teams Boot And Shoe Repairman Relationship Specialty Start Date End Date Adalberto Zepeda PA [address] [place] [address] PCP - General Internal Medicine 08/18/24 documented as of this encounter
--- OUTSIDE RECORDS SUMMARY | 2025-01-03 16:46 | XMS_ITS | Clinical Summary ---
Author Organization [facility] Address [address] [place] [address] Care Team Providers Care Flash Welder Name Role Phone Adalberto Zepeda PA-C Primary [...] age to complete this topic Care Teams Flash Welder Relationship Specialty Start Date End Date Adalberto Zepeda, [facility] PCP - General Medical Services 08/15/21
--- OUTSIDE RECORDS SUMMARY | 2025-01-03 16:46 | XMS_ITS | Data Portability ---
Author Organization [place] [facility] Steph Meyer [facility] [place] Address [address] [facility] [address] [place] [address] Care Team Providers Care Medical Intern Name Role Phone JENNIFER ESPOSITO Referring Provider [...] available 10/21/2024 09:07:28 11/23/2024 11/23/2024 IMPRESSION: 79-year-old rwpjy-ccvo-pijnid nt man with left shoulder glenohumeral arthritis [...] r, 2 or more view 2023 024 [facility], [address], [address], [place], [address], 05/13/2024 15:34:12 XR, wrist, 3 or more view 2023 024 [facility], [address], [place], [address], 04/01/2024 13:06:37 Medication Orders lidocai ne (PF) 10 mg/mL (1 %) injecti on solutio n 2024 025 [email or web address] Not available 11/23/2024 15:38:24 Marcain e (PF) 0.5 % (5 mg/mL) injecti on solutio n 2024 025 [email or web address] Not available 11/23/2024 15:38:24 triamci nolone acetoni de 40 mg/mL suspens ion for injecti on 2024 025 [email or web address] Not available 11/23/2024 15:38:24 lidocai ne (PF) 10 mg/mL (1 %) injecti on solutio n [address]/Pharmacy #[id number], [address] [place], [address], 10/21/2024 13:13:53 triamci nolone acetoni de 40 mg/mL suspens ion for injecti on [address]/Pharmacy #[id number], [address] [place], [address], 10/21/2024 13:13:53 diclofe nac 1 % topical gel 2024 025 [facility]/Pharmacy #[id number], [address] [place], [address], 10/21/2024 09:08:00 lidocai ne (PF) 10 mg/mL (1 %) injecti on solut n [address]/Pharmacy #[id number], [address] [place], [address], 08/12/2024 08:54:35 triamci nolone acetoni de 40 mg/mL suspens ion for injecti on 2023 024 [email or web address] Not available 08/12/2024 09:02:17 lidocai ne (PF) 10 mg/mL (1 %) injecti on solutio n [address]/Pharmacy #[id number], [address] [place], [address], 08/12/2024 08:54:35 triamci nolone acetoni de 40 mg/mL suspens ion for injecti on [email or web address]/Pharmacy #[id number], [address] [facility] [place], [address], 08/12/2024 08:54:35 lidocai ne (PF) 10 mg/mL (1 %) injecti on solutio n 2023 [id number] [address] [facility] [place], [address], 05/13/2024 15:34:12 triamci nolone acetoni de 40 mg/mL suspens ion for injecti on [email or web address]/Pharmacy #0693, [address] [facility] [place], [address], 08/12/2024 08:32:28 lidocai ne (PF) 10 mg/mL (1 %) injecti on solutio n 2023 024 [facility]/Pharmacy #[id number], [address] [place], [address], 04/01/2024 13:06:37 triamci nolone acetoni de 40 mg/mL suspens ion for injecti on [email or web address]/Pharmacy #0693, [address] [place], [address], 08/12/2024 08:32:28 Patient TargetsNo targets recorded. Patient Instructions Encounter Date Encounter Id Patient Instructions Last Modified By Organization Details Last Modified Time 04/01/2024 [id number] You have been provided with a cortisone [...] and subluxation. Not available 04/01/2024 11:48:44 05/13/2024 [id number] You have been provided with a cortisone [...] findings noted. Not available 05/13/2024 11:54:26 08/12/2024 [id number] You have been provided with a cortisone [...] portal TAMIE. Not available 08/12/2024 09:33:27 10/21/2024 [id number] You have been provided with a cortisone [...] Closed fracture of distal end of radius 72755618 Active 2023 Leidy frost MD [address], [place], [address], [place] [facility] 4 13:08:08 Osteoarthro sis of the carpometaca rpal joint of the thumb 12157507 Active 2023 Leidy frost MD [address], [place], [address], [place] [facility] 4 13:08:36 Arthritis of left glenohumera l joint 8930482651007 100 Active 2023 Leidy frost MD [address], [place], [address], [place] [facility] 4 11:54:47 Triggering of digit 697506310 Active 2023 Liedy frost MD [address], [place], [address], [place] [facility] 4 11:56:43 Arthritis of first carpometaca rpal joint of right hand 9783201424409 100 Active 2024 Leidy frost MD [address], [place], [address], [place] [facility] 5 09:05:52 Osteoarthri tis of finger joint of right hand 0214957849062 9104 Active 2024 Leidy frost MD [address], [place], [address], [place] [facility] 5 09:07:37 Problem Notes None recorded. Procedures Surgical History Date Name Laterality Status Provider Name and Address Organization Details Recorded Time 11/23/19 25 AJR Shoulder GH Inj completed Edwardo Salazar MD [address], [place], [address], [place] [facility] 11/23/2024 09:36:38 10/21/19 25 LES finger joint injection completed Leidy Langford MD [address], [place], [address], [place] [facility] 10/21/2024 09:05:14 08/12/20 24 LES finger joint injection completed Leidy Langford MD [address], [place], [address], [place] [facility] 08/12/2024 09:33:13 08/12/20 24 LES Subacromial Shoulder Inj completed Leidy Langford MD [address], [place], [address], [place] [facility] 08/12/2024 09:32:56 05/13/20 24 LES Subacromial Shoulder Inj completed Leidy Langford MD [address], [place], [address], [place] [facility] 05/13/2024 11:53:24 04/01/20 24 LES trigger finger/De Quervain's injection completed Leidy Langford MD [address] [facility],[address], [place], [address], [place] [facility] 04/01/2024 11:47:54 02/26/20 24 LES finger joint injection completed Leidy Langford MD [address] [facility],[address], [place], [address], [place] [facility] 02/26/2024 13:10:34 Imaging Results None recorded. Procedure Notes None recorded. Medical Equipment None Reported. Allergies Allergen ID Allergen Name Allergen Category Reaction Reaction Severity Criticality Documentation Date Start Date Code Code System Note Provider Name and Address Organization Details Recorded Time 11339 acetamino phen / oxycodone medicatio n Not available Not available Not available 02/26/2024 50761 3 RxKostas Duggan null, [place] [facility] 4 09:31:06 24519 oxycodone medicatio n Not available Not available Not available 02/26/2024 7804 Eloisa Duggan null, [place] [facility] 4 09:31:25 00163 amoxicill in medicatio n Not available Not available Not available 02/26/2024 723 Eloisa Duggan null, [place] [facility] 4 09:31:33 78906 erythromy leisa medicatio n Not available Not available Not available 02/26/2024 4053 Eloisa Duggan null, [place] [facility] 4 09:31:43 39517 minocycli ne medicatio n Not available Not available Not available 04/01/2024 6980 Eloisa Duggan null, [place] [facility] 4 11:19:40 56152 sertralin e medicatio n Not available Not available Not available 04/01/2024 53234 Eloisa Duggan null, [place] [facility] 4 11:19:48 Medications Name Sig Start [...] Available Not Available Not Available lorazepam @ [facility] 08/12 completed Not Available Not Available Not [...] Updated DateTime 08/12/2024 177.8 cm 22 kg/m2 53127.[address] [place] [facility], 08/12/2024 08:33:47 Date Recorded Body height Body mass index (BMI) Body weight Provider Name and Address Organization Details Last Updated DateTime 10/21/2024 177.8 cm 22 kg/m2 10532.[address] [place] [facility] 10/21/2024 08:55:09 Social History Question Answer Notes LastModified by Organizat ion Details LastModified Time Tobacco Smoking Status Never Smoker Cassidy Duggan null, [place] [facility] 02/26/2024 10:27:52 What Is Your Level Of Alcohol Consumption? None Information not available 02/26/2024 Do You Use Any Illicit Or Recreational Drugs? No Information not available 02/26/2024 Do You Or Have You Ever Used Any Other Forms Of Tobacco Or Nicotine? No [email or web address] Information not available 02/26/2024 Sex: Unknown Functional [...] SNOMED-CT Code Diagnosis ICD10 Code Diagnosis Note [id number] MD BLANCO [facility] [address] [address] 02/26/2024 09:18:47 02/26/2024 10:20:59 Pain of left wrist 4802402019 55331 M25.532 Additional diagnosis detail: Left wrist pain Closed fra cture of distal end of radius 88807786 S52.572A Additional diagnosis detail: Other closed intra-venkata cular fracture of distal end of left radius, initial encounter Osteoarthr osis of the carpometacarpal joint of the thumb 83220274 M18.12 Additional diagnosis detail: Primary osteoarthr itis of first carpometac arpal joint of left hand [id number] MD [facility] [address] [address] 04/01/2024 11:09:01 04/01/2024 11:44:29 Closed fracture of distal end of radius 57785646 S52.572A Additional diagnosis detail: Other closed intra-venkata cular fracture of distal end of left radius, initial encounter Osteoarthr osis of the carpometacarpal joint of the thumb 64362583 M18.12 Additional diagnosis detail: Primary osteoarthr itis of first carpometac arpal joint of left hand Triggering of digit 2399 99407 M65.332 Additional diagnosis detail: Trigger middle finger of left hand, trigger ring finger of left hand [id number] MD [facility]AN[facility] 299 [facility] [address] [place] [address] 05/13/2024 10:26:20 05/13/2024 11:10:39 Closed fracture of distal end of radius 87201793 S52.572A Additional diagnosis detail: Other closed intra-venkata cular fracture of distal end of left radius, initial encounter Osteoarthr osis of the carpometacarpal joint of the thumb 34204233 M18.12 Additional diagnosis detail: Primary osteoarthr itis of first carpometac arpal joint of left hand Chronic pa in of left upper limb 4154997854 6742965 M25.512 G89.29 Additional diagnosis detail: Chronic left shoulder pain Pain of le ft shoulder joint 0772121969 1157992 M25.512 Additional diagnosis detail: Pain, joint, shoulder, left Arthritis of left glenohumeral joint 1187016310 782212 M19.012 Triggering of digit 2399 89209 M65.342 M65.332 Additional diagnosis detail: Trigger finger, left ring fingerAddi tional diagnosis detail: Trigger finger, left middle finger [id number] MD [facility]AN[facility] 299 [facility] [address] [place] [address] 08/12/2024 08:16:17 08/12/2024 08:54:36 Arthritis of left glenohumeral joint 8544267052 074777 M19.012 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 9247508128 499606 M18.12 19745 [facility] [address] [facility] [address] [place] [address] 10/21/2024 08:09:50 10/21/2024 09:19:40 Osteoarthrosis of the carpometacarpal joint of the thumb 06131847 M18.12 Additional diagnosis detail: Primary osteoarthr itis of first carpometac arpal joint of left hand 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 2498002975 551417 M18.11 Osteoarthr itis of finger joint of right hand 1447324689 1073769 M15.1 [id number] MD BLANCO [facility] 299 [facility] [address] [place] [address] 11/23/2024 08:34:37 11/23/2024 09:36:16 Arthritis of left glenohumeral joint 5663983797 386729 M19.012 Health Concerns Section Related Observation LastModified by Organization Detai ls LastModified Time None Recorded Concern Status LastModified by Organization Details LastModified Time None Recorded Advance Directives Directive None Recorded Payers Encounter Date Sequence Insurance Name Policy Number Policy Carrillo Covered Member ID Carrillo Member ID Guarantor Name 04/01/2024 1 [facility] (MEDICARE REPLACEMENT PPO) [id number] Caleb Martínez [id number] Caleb Martínez 05/13/2024 1 [place] PPO) [id number] Caleb Mejiat [id number] Caleb Martínez 08/12/2024 1 [place] P[place]) [id number] Caleb Mejiat [id number] Caleb Martínez 10/21/2024 1 [place] PPO) [id number] Caleb Crainaert [id number] Caleb Martínez 11/23/2024 1 [facility] ([place]ICARE [place]ACEMENT PPO) [id number] Caleb Crainaert [id number] Caleb Martínez Notes Date Note Type [...] of years ago. Leidy Langford MD [address] [address], [place], [address], [place] [facility] 04/04/2024 21:14:10 05/13/2024 text/html He presents [...] and pain with activities. He has tried skau-ctm-ndkhtgy medications with have not helped his pain significantly. Leidy Langford MD [address] [facility] [address], [place], [address], [facility] - [facility] 05/13/2024 11:57:41 08/12/2024 text/html He returns [...] were previously injected. Leidy Langford MD [address] [facility],[address] [address], [place], [address], [facility] - [facility] 08/12/2024 09:36:08 10/21/2024 text/html He presents [...] helpful. 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 He does have pain in his left shoulder for which I gave him a cortisone injection on 08/12/2024 for glenohumeral joint arthritis. Leidy Langford MD [address] [facility],[address] [address], [place], [address], [facility] 10/21/2024 09:51:15 11/23/2024 text/html 79-year-old rlmga-xtvt-tbgvcjwk man with left shoulder pain for years. 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 Edwardo Salazar MD [address] [facility] [address], [place], [address], [facility] - [facility] 11/23/2024 09:41:56
--- OUTSIDE RECORDS SUMMARY | 2025-01-03 16:46 | XMS_ITS ---
Author Organization [facility] Address [address] [place] [address] Care Team Providers Care [employer] Name Role Phone Raman WARE, Vandana Primary Care Provider Unavail able Eugene Iyer Jr Unavailable [phone] Allergies Allergen (clinical drug ingredient) Drug/Non Drug [...] sertraline Sertraline Unknown Drug Allergy Activ e REASON FOR VISIT Patient presents today for DYSPHAGIA Medications Medication SIG (Take, Route, Frequency, Duration) [...] Once a day for 30 day(s) Active Social History Tobacco Use: Social History Observation [...] Problem Status W/U Status Risk Notes Problem 65538538 Dysphagia, unspecified type (R13.10) Active confirmed Problem 001892831 Long-term use of aspirin therapy (Z79.82) Active confirmed Problem 246596555 Gastroesophageal reflux disease, unspecified whether esophagitis present (K21.9) Active confirmed Vital Signs Temperature 97.7 degrees Fahrenheit 12/01/19 25 Blood pressure systolic 001 mm Hg 12/01/19 25 Blood pressure diastolic 01 mm Hg 025 Height 70 in 12/01/2024 Weight 148 lbs 12/01/2024 BMI 21.23 kg/m2 12/01/2024 Encounters Encounter Location Date Provider Diagnosis [facility] [address] [facility] [address] [place] [address] 12/01/2024 Eugene Iyer Jr Dysphagia, unspecified type R13.10 ; Long-term use of aspirin therapy Z79.82 and Gastroesophageal reflux disease, unspecified whether esophagitis present K21.9 Assessments Encounter Date Diagnosis (ICD Code) Assessment Notes Treatment Notes Treatment Clinical Notes Section Notes 12/01/2024 Dysphagia, unspecified type (ICD-10 - R13.10) [...] aspirin one week before the procedure. 12/01/2024 Long-term use of aspirin therapy (ICD-10 [...] week before the procedure. Plan Of Treatment Treatment Notes Assessment Notes Dysphagia, unspecified type Endoscopy jose smith was printed Future Test Test Name Order Date UPPER GI ENDOSCOPY 12/01/2024 Next Appt Details Follow Up: 1 Year, Reason: Provider Name:Eugene domingo , 01/14/2025 09:20:00 AM, [address] [place] [address] , [place], [place], [phone], Progress Notes * SHELIAINDRA KOFIDOB:1945 (79 yo M)Acc No.[id number]:12/01/2024 Progress Notes Patient:?KOFI STANLEY Provider:?Eugene Iyer MD :1945???Age:79 Y???Sex:Male Kirby e:12/01/2024 Address:[address] [place] [address] [facility] Pcp:Vandana Camargo NP Subjective: * Chief Complaints: * ???1. Patient presents today for DYSPHAGIA. * HPI: ???New symptom(s):? The patient is a pleasant 79-year-old man seen today in consultation. He has a long-standing history of gastroesophageal reflux disease with substernal burning precipitated by typical foods including spicy foods and fatty foods. Over the past several years, he's had dysphagia in the setting of Parkinson's disease, and complains of food sticking in the suprasternal area, which he has to wash down with liquids. He avoids things like lettuce and steak. He has been using Ensure supplements with some improvement. ?24 pages of outpatient records from the [facility] are reviewed and scanned until electronic medical record. * ROS:?General/Constitutional:?Change in appetite?denies.?Fatigue?denies.?ENT:?Patient denies?sore throat.?Respiratory:?Patient denies?shortness of breath.?Cardiovascular:?Patient denies?chest pain.?Gastrointestinal:?Comments?See HPI for details.?Genitourinary:?Difficulty urinating?denies.?Incontinence?denies.?Musculoskeletal:?Patient denies?muscle aches.?Skin:?Patient denies?pruritis.?Neurologic:?Patient denies?low back pain.?Psychiatric:?Patient denies?mental or physical abuse.? * Medical History:?Hypertensio n, Cardiomyopathy/bradycardia/ASCVD, PTSD/anxiety/depression, Hypertension, Hyperlipidemia, Parkinson's disease, Hyperlipidemia, Rheumatoid/osteoarthritis, Chronic kidney disease. * Surgical History:?Tonsillect lori , colonoscopy 2020, [place] , Lithotripsy for nephrolithiasis . * Family History:?Father: dece ased, diagnosed with HTN (hypertension).?Mother: .? No family history of colon cancer or liver cancer. * Social History:?Tobacco Use:?Tobacco Use/Smoking?Patient is a?nonsmoker.?Drugs/Alcohol:?Alcohol Screen?Did you have a drink containing alcohol in the past year??No,?Points?0,?Interpretation?Negative.?Miscellaneous:?Marital status: . Occupation: retired. * Medications:?Taking traZODon e HCl 100 MG Tablet 1 tablet at bedtime Orally Once a day, Taking PARoxetine HCl 30 MG Tablet 1 tablet in the morning Orally Once a day, Taking predniSONE 10 MG Tablet 1 tablet Orally Once a day, Notes: as needed for inflamation, Taking Mupirocin 2 % Ointment 1 application Externally Twice a day, Taking rOPINIRole HCl 2 MG Tablet 1 tablet 1 to 3 hours before bedtime Orally Once a day, Taking Entacapone 200 MG Tablet 1 tablet Orally Twice a day, Taking Carbidopa 25 MG Tablet 1 tablet Orally Three times a day, Taking buPROPion HCl ER (XL) 300 MG Tablet Extended Release 24 Hour 1 tablet in the morning Orally Once a day, Taking Alendronate Sodium 70 MG Tablet Oral , Taking amLODIPine Besylate 5 MG Tablet TAKE 1 TABLET BY MOUTH 1 TIME EACH DAY. Oral , Taking Atorvastatin Calcium 40 MG Tablet TAKE 1 TABLET BY MOUTH EVERY DAY Oral , Taking Aspirin 81 81 MG Tablet Delayed Release 1 tablet Orally Once a day, Taking Doxycycline Hyclate 100 MG Capsule Oral , Taking Omeprazole 20 MG Capsule Delayed Release Oral , Taking Leucovorin Calcium 10 MG Tablet TAKE 2 TABLETS BY MOUTH ONCE A WEEK THE DAY AFTER METHOTREXATE Oral , Taking Tamsulosin HCl 0.4 MG Capsule Oral , Taking Lisinopril 40 MG Tablet Oral , Taking Methotrexate Sodium 2.5 MG Tablet Oral , Medication List reviewed and reconciled with the patient * Allergies:?Percocet, Oxycodo ne-Acetaminophen ER, Minocycline, Amoxicillin, Erythromycin, Romycin, Polymyxin B, Sertraline. Objective: * Vitals:?Wt:148 lbs, Ht: 70 i n, BMI:21.23 Index, BP:001/01 mm Hg, Temp:97.7, Ht- cm: 177.8, Wt-k.13. * Examination: ???General Examination: ?GENERAL APPEARANCE:?in no acute distress.?HEAD:?normocephalic.?EYES:?sclera non-icteric.?ORAL CAVITY:?mucosa moist.?NECK/THYROID:?no lymphadenopathy.?SKIN:?anicteric.?HEART:?S1, S2 normal, no murmurs.?LUNGS:?clear to auscultation bilaterally.?CHEST:?normal shape and expansion.?ABDOMEN:?soft, nontender, nondistended, bowel sounds present, no organomegaly .?EXTREMITIES:?no clubbing, cyanosis, or edema. A resting tremor is present..?PSYCH:?cognitive function intact.? Assessment: * Assessment: 1.?Dysphagia, unspecified ty pe - R13.10 (Primary)?2.?Long-term use of aspirin therapy - Z79.82?3.?Gastroesophageal reflux disease, unspecified whether esophagitis present - K21.9? We discussed dysphagia today . We recommended further evaluation of his symptoms with upper endoscopy. He may benefit from empiric balloon dilation of the upper or lower esophageal sphincter depending on the findings. We discussed risks and benefits of the procedure today. He understands these and agrees to proceed. He is advised to stop aspirin one week before the procedure. Plan: * Treatment: Notes: Endoscopy material was printed?? * Procedure Codes:?G9903 Pt sc rn tbco id as non user, G9744 PATIENT NOT ELIG D/T ACTIVE DX HTN * Preventive Medicine:? ??Screenings:?Fall Risk Screening?Fall Risk Assessment:?One fall without injury in the past year,?Screening:?One fall without injury in the past year,?Assessment:?Not performed, no reason specified,?Plan of Care:?Not documented, no reason specified.? * Follow Up:?1 Year * * Sign off status: Completed true * Provider:?Eugene Iyer MD Date:?0 12/01/2024 Generated for Rona leung/Hesham/Petersonitting on:?01/03/2025 04:45 PM EDT History and Physical Notes * HPI (History of Present Illness) Category Sub-Category Detail Notes Category Not es New symptom(s) The patient is a pleasant 79-year-old man seen today in consultation. He has a long-standing history of gastroesophageal reflux disease with substernal burning precipitated by typical foods including spicy foods and fatty foods. Over the past several years, he's had dysphagia in the setting of Parkinson's disease, and complains of food sticking in the suprasternal area, which he has to wash down with liquids. He avoids things like lettuce and steak. He has been using Ensure supplements with some improvement. [facility]. Examination Category Sub-Category Detail Notes Category Not es General Examination GENERAL APPEARANCE: in no acute di stress HEAD: normocephalic EYES: sclera non-icteric NECK/THYROID: no [...]
--- OUTSIDE RECORDS SUMMARY | 2025-01-03 16:46 | XMS_ITS | Clinical Summary ---
Author Organization [facility] Address [address] [place] [address] Phone Care Team Providers Care Chairman Ceo Name Role Phone Adalberto Zepeda Primary Care Provider [phone] Allergies Active Allergy Reactions Criticality Noted Date [...] mouth 2 (two) times a day. Active carbidopa-lev odopa (SINEMET) 25-100 mg per tablet Take 1 tablet by mouth 6 (six) times a day. 06/09/20 20 Active doxycycline (VIBRAMYCIN) 100 mg capsule 12/27/19 23 Active doxycycline (ADOXA) 100 mg tablet Take 1 tablet (100 mg total) by mouth 2 (two) times a day. Active entacapone (COMTAN) 200 mg tablet Take 1 tablet (200 mg total) by mouth 6 (six) times a day. 08/02/20 Active folic acid (FOLVITE) 1 mg tablet Take 1 tablet (1 mg total) by mouth 1 (one) time each day. 05/22/20 21 Active hydroxychloro quine (PLAQUENIL) 200 mg tablet TAKE 1 TAB TWICE DAILY X5 DAYS A WEEK AND 1 TAB DAILY X2 DAYS A WEEK 02/05/20 24 Active ketoconazole (NIZORAL) 2 % cream Apply 1 Application topically 2 (two) times a day. Active lidocaine 0.5% (SOLARCAINE) 0.5 % gel external gel Apply 5 g topically 2 times daily as needed. 08/22/20 21 Active lisinopril (PRINIVIL,ZES TRIL) 40 mg tablet Take 1 tablet (40 [...] mouth 1 (one) time each day. 07/29/20 Active traZODone (DESYREL) 50 mg tablet Take [...] tablet (2 mg total) by mouth. 05/25/20 Active traMADoL (ULTRAM) 50 mg tablet Take 1 tablet (50 mg total) by mouth. 08/06/20 24 Active leucovorin 10 mg tablet TAKE 1 TABLET BY MOUTH EVERY WEEK. TAKE THE DAY AFTER YOU TAKE METHOTREXATE 06/03/20 24 Active omeprazole (PriLOSEC) [address] capsule TAKE 1 CAPSULE TWICE DAILY 180 capsule 1 10/19/20 24 Active QUEtiapine (SEROquel) 100 mg tablet Take 1 tablet (100 mg total) by mouth at bedtime. Active amLODIPine (NORVASC) 5 mg tablet Take 1 tablet (5 mg total) by mouth 1 (one) time each day. 90 tablet 3 12/28/19 25 Active amLODIPine (NORVASC) 5 mg tablet Take 1 tablet (5 mg total) by mouth 1 (one) time each day. 90 tablet 1 08/30/20 24 025 Discontinued amLODIPine (NORVASC) 5 mg tablet TAKE 1 TABLET BY MOUTH 1 TIME EACH DAY. 28 tablet 12/08/19 25 025 Discontinued(R eorder) Active Problems Problem Noted Date Diagnosed Date [...] Encounters Date Type Department Care Team Description 12/27/2024 12:30 PM EDT Office Visit [address] [place] [address] Adalberto Zepeda PA Tear of left biceps muscle, initial encounter (Primary Dx); Benign prostatic hyperplasia without lower urinary tract symptoms; Bradycardia; Essential tremor; Parkinson's disease without dyskinesia, unspecified whether manifestations fluctuate (CMS/HCC); Essential (primary) hypertension; Chronic venous hypertension (idiopathic) with inflammation of left lower extremity; Renal cyst from Last 3 Months Immunizations Name Administration Dates Next Due Pfizer SARS-CoV-2 COVID-19, mRNA, LNP-S, preservative free 07/01/2022,12/10/2020,11/19/2020 Pneumococcal conjugate 20 va lent (Prevnar 20, PCV 20) 2mo and older 08/10/2024 Zoster recombinant (Shingrix ) 19yo and older 06/26/2023,03/07/2023 Surgical History Surgery Date Site/Laterality Comments PROSTATE [...] negative examination. UPPER GASTROINTESTINAL ENDOSCOPY 02/27/2018 PROCEDURE: [place] UPPER GI ENDOSCOPY PERFORMED; COMMENT: Normal upper [...] ed Within the last 3 months, ho ten many times did you visit the emergency [...] for your loved ones. For example, child neurologist or elderly care for an older adult? [...] 14 12/27/2024 12:32 PM EDT Oxygen Saturation 99% 09/08/2024 9:36 AM EST Inhaled Oxygen Concentration - - Weight 70 kg (154 lb 6.4 oz) 12/27/2024 12:32 PM EDT Height 177.8 cm (5' 10 ) 12/27/2024 12:32 PM EDT Body Mass Index 22.15 12/27/2024 12:32 PM EDT Plan of Treatment Upcoming Encounters Date Type Department Care Team (Late st Contact Info) Description 05/24/2025 9:30 AM EDT Office Visit [facility] Hematology Oncology [address] [place] [address] Katja Lainez MD [address] [place] [phone] 07/04/2025 10:30 AM EDT Office Visit Adult Medicine [facility] [address] [place] [address] Adalberto Zepeda PA [address] [place] [address] Health Maintenance Due Date Last Done Comments Medicare Annual Wellness Visit 09/28/2022 COVID-19 Vaccine ( season) 2024 07/01/2022, 07/18/2021, 12/10/2020, Additional history exists Hypertension/CHF/CAD Annual BMP Blood Test 08/04/2025 08/04/2024 Depression Screening 12/20/2025 12/20/2024 Social Influencers of Health Screening 12/20/2025 12/20/2024 Falls Risk Assessment 12/27/2025 12/27/2024, 025 Cholesterol Screening (Lipid Panel) 08/04/2029 08/04/2024 DTaP,Tdap,and [...] to complete this topic RSV Immunization Patients 60+ Years Old Discontinued RSV Immunization Patients Under 20 months Aged [...] Documents on File Type Date Recorded Patient Hospital Carrier Expl anation Health Care Decision (hx) 01/07/2018 AD UP DIRECTIVE Health Care Decision (hx) 01/07/2018 AD UP DIRECTIVE Care Teams Chairman Ceo Relationship Specialty Start Date End Date Adalberto Zepeda PA [address] [place] [address] PCP - General Internal Medicine 08/18/24
== END 2025-01-03 14:44 | disposition home or self-care (01) ==
LOC: HO.HCS 14:19
PROVIDERS: PCP Physician Assistant Medical; Visit Provider Internal Medicine
DX: I25.10 Atherosclerotic heart disease of native coronary artery without angina pectoris (principal); I42.9 Cardiomyopathy, unspecified; I35.0 Nonrheumatic aortic (valve) stenosis
CPT/HCPCS: 99214; G2211

== ENCOUNTER → 2025-01-03 14:19 | Outpatient (BNVA) | payer MEDICARE, SELFPAY | PROVIDERS: PCP Physician Assistant Medical; Visit Provider Internal Medicine | DX: I25.10 Atherosclerotic heart disease of native coronary artery without angina pectoris (principal); I42.9 Cardiomyopathy, unspecified; I35.0 Nonrheumatic aortic (valve) stenosis | CPT/HCPCS: 99212 ==

== ENCOUNTER 2025-01-13 09:12 | Outpatient (AMB) | payer BC, SELFPAY ==
--- NOTE | 2025-01-13 09:33 | A.OFFVIS_ITS ---
Vital Signs 01/13/25 09:34 Height 5 ft 8 in Weight 156 lb BMI 23.7 BP 124/74 Blood Pressure Location Rt brachial Position Sitting Pulse 55 Pulse Source Pulse Oximeter Pulse Oximetry (%) 100 Oxygen Delivery Method Room Air Intake Visit Reasons: Follow up Parkinson Intake Note: Patient presents for follow up parkinson's disease. Allergies sertraline Allergy (Intermediate, Verified 01/13/25 09:36) nausea,dizziness acetaminophen [From Percocet] Allergy (Unknown, Verified 01/13/25 09:36) unknown amoxicillin Allergy (Unknown, Verified 01/13/25 09:36) unknown erythromycin base Allergy (Unknown, Verified 01/13/25 09:36) unknown minocycline Allergy (Unknown, Verified 01/13/25 09:36) unknown oxycodone [From Percocet] Allergy (Unknown, Verified 01/13/25 09:36) unknown polymyxinb tmp Allergy (Intermediate, Uncoded 01/13/25 09:36) swelling, rash Medication List - Last Reconciled 01/13/25 by Areli Mckay MD alendronate 70 mg PO QWEEK amlodipine 10 mg PO DAILY ammonium lactate 12% 1 appl topical DAILY aspirin 81 mg PO DAILY atorvastatin 40 mg PO DAILY bupropion HCl 200 mg PO DAILY carbidopa-levodopa 25-100 mg 1 tab PO .6 x a day diclofenac sodium 1% 4 grams topical QID doxycycline hyclate 100 mg PO BID entacapone 200 mg PO .6 x a day with carbi leucovorin calcium 20 mg (2 x 10 mg) PO QWEEK lisinopril 40 mg PO DAILY meloxicam 7.5 mg PO DAILY methotrexate sodium 10 mg (4 x 2.5 mg) PO QWEEK metronidazole 0.75% 1 appl topical DAILY omeprazole 20 mg PO DAILY paroxetine HCl (Paxil) 10 mg PO DAILY prednisone 10 mg PO DIRECTED quetiapine 100 mg PO BEDTIME ropinirole 2 mg PO BID tamsulosin 0.4 mg PO BEDTIME trazodone 100 mg PO BEDTIME PRN HPI Comments Details: 79y/o Right handed male comes for follow up of Parkinsons disease.He is doing OK , still has tremors in his right LE and uE He was diagnosed 3 years ago by [facility] and has been under his care jimmy tracy now. History from his initial visit-He noticed intermittent right hand and leg tremors about 4 years ago and it has progressively worsened since then .The tremors are mostly at rest . He is independent in all ADLS He denies memory issues. Sleep is ok . he reports nightmares related to service in the [employer]. vivid dreams , REM behavior disorder. His mood is Ok and he is motivated. 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 His speech is softer and has excessive drooling He has mild to moderate difficulty with hand writing, using utensils, dressing , needs help with shower. His gait is slow and mildly off balance - he has right AFO No dizziness , no double vision . He has mild constipation and mild urgency He has falls- mainly related to his . [facility] Medical History 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 Gout Footdrop BPH (benign prostatic hyperplasia) Hypertension Diverticulosis Thrombocytopenia Acid reflux Basal cell carcinoma Cholelithiasis Nephrolithiasis PTSD (post-traumatic stress disorder) Parkinsons Osteoarthritis of hands, bilateral Chronic sinus bradycardia Restless leg Seronegative rheumatoid arthritis Dyslipidemia Surgical History S/P cardiac cath S/P trigger finger release Hx of endoscopy S/P TURP Hx of tonsillectomy Hx of lithotripsy Hx of colonoscopy Family History Mother Arthritis Social History Household Members: Spouse Housing: House Do you presently have visiting nurse or other home services: No Alcohol intake: never Patient Tobacco Use Status: Never used Tobacco e-Cigarette/Vaping Use: Never Used service: Yes Current occupational status: retired 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 Physical Exam Vital Signs: Last Vital Signs Pulse 55 01/13/25 09:34 BP 124/74 01/13/25 09:34 Pulse Ox 100 01/13/25 09:34 Oxygen Delivery Method Room Air 01/13/25 09:34 BMI result Body Mass Index 23.7 Const General: cooperative, healthy appearing and no acute distress Nutritional Appearance: average body habitus Orientation/consciousness: patient oriented x3 HEENT Head: Yes normal to inspection Neck Other: mild antecollis and restricted range of motion Neuro Other: Mild decreased blink and facial expression Voice-dysprosody Right UE high amplitude rest tremors , right leg Intermittent left hand tremors Fine Finger movements - severely decreased primitivo l>R Alternating hand movements - decreased primitivo Hand movements - decreased primitivo Foot taps- decreased primitivo No cog wheel rigidity gait - stooped, mild slowness and decreased arm swing R>L with a cane , weakness of right leg General: patient oriented x3 Cranial nerves: Yes CN's II-XII intact bilaterally, Yes Bilaterally intact EOM present, Yes Normal facial strength present and Yes Midline tongue present Cognition (Neuro): normal cognition Motor exam (neuro): Normal motor muscle tone present throughout Coordination: sbtogw-sc-rudu test normal Assessment & Plan Assessment & Plan (1) Parkinson's disease without dyskinesia: Code(s): G20.A1 - Parkinson's disease without dyskinesia, without mention of fluctuations Category: Medical Qualifiers: Fluctuating manifestations: without fluctuating manifestations Qualified Code(s): G20.A1 - Parkinson's disease without dyskinesia, without mention of fluctuations Plan Increase carbidopa/levodopa 25/100 7am, 1pm, 7pm -1.5tabs 10am, 4pm, 10pm -1 tab, 1pm ropinirole 2mg bid ropinirole 2mg bid Monitor hallucinations F/u psychologist Discussed fall prevention. Medications: Changed From carbidopa-levodopa 25-100 mg 1 tab PO .6 x a day To carbidopa-levodopa 25-100 mg 1.5 tabs at 7am,1pm,7pm , 1 tab at 10am,4pm,10pm orally 6 X A DAY; 720 tabs 6RF Coding Level of Care Code Est Pt Level 4 (66790) Complex EM visit Add On G2211 Diagnoses Parkinson's disease without dyskinesia or fluctuating manifestations G20.A1 Fluctuating manifestations: without fluctuating manifestations
[2025-01-13 09:34] VITALS: BP 124/74; PULSE 55; O2SAT 100; BMI 23.7
--- OUTSIDE RECORDS SUMMARY | 2025-01-13 10:48 | XMS_ITS ---
Author Organization [facility] Address [address] [place] [address] Care Team Providers Care Aquatic Performer Name Role Phone Raman WARE, Vandana Primary Care Provider Unavail able Eugene Iyer Jr Unavailable [phone] Allergies Allergen (clinical drug ingredient) Drug/Non Drug [...] Problem Status W/U Status Risk Notes Problem 57357544 Dysphagia, unspecified type (R13.10) Active confirmed Problem 465974968 Long-term use of aspirin therapy (Z79.82) Active confirmed Problem 165742884 Gastroesophageal reflux disease, unspecified whether esophagitis present (K21.9) Active confirmed Vital Signs Temperature 97.7 degrees Fahrenheit 12/01/19 25 Blood pressure systolic 001 mm Hg 12/01/19 25 Blood pressure diastolic 01 mm Hg 025 Height 70 in 12/01/2024 Weight 148 lbs 12/01/2024 BMI 21.23 kg/m2 12/01/2024 Encounters Encounter Location Date Provider Diagnosis [facility] [address] [place] [phone] 12/01/2024 Eugene Iyer Jr Dysphagia, unspecified type [...] Provider Name:Eugene domingo , 01/14/2025 09:20:00 AM, [address] [place] [address] , [place], [place], [id number], Progress Notes * SHELIAINDRA KOFIDOB:1945 (79 yo M)Acc No.[id number]:12/01/2024 Progress Notes Patient:?KOFI STANLEY Provider:?Eugene Iyer MD :1945???Age:79 Y???Sex:Male Kirby e:12/01/2024 Address:[address] [place] [address] [id number] Pcp:Vandana Camargo NP Subjective: * Chief Complaints: [...] ?24 pages of outpatient records from the [place] are reviewed and scanned until electronic medical record. * ROS:?General/Constitutional:?Change in appetite?denies.?Fatigue?denies.?ENT:?Patient denies?sore throat.?Respiratory:?Patient denies?shortness of breath.?Cardiovascular:?Patient denies?chest pain.?Gastrointestinal:?Comments?See HPI for details.?Genitourinary:?Difficulty urinating?denies.?Incontinence?denies.?Musculoskeletal:?Patient denies?muscle aches.?Skin:?Patient denies?pruritis.?Neurologic:?Patient denies?low back pain.?Psychiatric:?Patient denies?mental or physical abuse.? * Medical History:?Hypertensio n, Cardiomyopathy/bradycardia/ASCVD, PTSD/anxiety/depression, Hypertension, Hyperlipidemia, Parkinson's disease, Hyperlipidemia, Rheumatoid/osteoarthritis, Chronic kidney disease. * Surgical History:?Tonsillect lori , colonoscopy 2020, [place] , Lithotripsy for nephrolithiasis . * Family [...] Iyer MD Date:?0 12/01/2024 Generated for Rona leung/Hesham/eTbennysmitting on:?01/13/2025 10:48 AM EDT History and Physical Notes * HPI [...]
--- OUTSIDE RECORDS SUMMARY | 2025-01-13 10:48 | XMS_ITS | Clinical Summary ---
Author Organization [facility] Address [address] [place] [address] Phone Care Team Providers Care Vehicle Refinisher Name Role Phone Adalberto Zepeda Primary Care Provider [phone] Allergies Active Allergy Reactions Criticality Noted Date [...] by mouth 1 (one) time each day. 3 Active buPROPion (WELLBUTRIN) 100 mg tablet Take 1 tablet (100 mg total) by mouth 2 (two) times a day. Active carbidopa-levo dopa (SINEMET) 25-100 mg per tablet Take 1 tablet by mouth 6 (six) times a day. 0 Active doxycycline (VIBRAMYCIN) 100 mg capsule 3 Active doxycycline (ADOXA) 100 mg tablet Take 1 tablet (100 mg total) by mouth 2 (two) times a day. Active entacapone (COMTAN) 200 mg tablet Take 1 tablet (200 mg total) by mouth 6 (six) times a day. 2 Active folic acid (FOLVITE) 1 mg tablet Take 1 tablet (1 mg total) by mouth 1 (one) time each day. 1 Active hydroxychloroq uine (PLAQUENIL) 200 mg tablet TAKE 1 TAB TWICE DAILY X5 DAYS A WEEK AND 1 TAB DAILY X2 DAYS A WEEK 4 Active ketoconazole (NIZORAL) 2 % cream Apply 1 Application topically 2 (two) times a day. Active lidocaine 0.5% (SOLARCAINE) 0.5 % gel external gel Apply 5 g topically 2 times daily as needed. 1 Active lisinopril (PRINIVIL,ZEST RIL) 40 mg tablet Take 1 tablet (40 mg total) by mouth 1 (one) time each day. 3 Active LORazepam (ATIVAN) 0.5 mg tablet Take 1 tablet (0.5 mg total) by mouth 1 (one) time each day. 2 Active melatonin 3 mg tablet Take 1 tablet (3 mg total) by mouth at bedtime. Active methotrexate 2.5 mg tablet Take 6 tablets (15 mg total) by mouth 1 (one) time per week 1 Active mirtazapine (REMERON) 30 mg tablet Take 1 tablet (30 mg total) by mouth at bedtime. Active mupirocin (BACTROBAN) 2 % ointment Apply topically. Ac tive tamsulosin (FLOMAX) 0.4 mg 24 hr capsule Take 1 capsule (0.4 mg total) by mouth 1 (one) time each day. 2 Active traZODone (DESYREL) 50 mg tablet Take [...] 1 tablet (2 mg total) by mouth. 9 Active traMADoL (ULTRAM) 50 mg tablet Take 1 tablet (50 mg total) by mouth. 4 Active leucovorin 10 mg tablet TAKE 1 TABLET BY MOUTH EVERY WEEK. TAKE THE DAY AFTER YOU TAKE METHOTREXATE 4 Active omeprazole (PriLOSEC) [address] capsule TAKE 1 CAPSULE TWICE DAILY 180 capsule 1 4 Active QUEtiapine (SEROquel) 100 mg tablet Take 1 tablet (100 mg total) by mouth at bedtime. Active amLODIPine (NORVASC) 5 mg tablet Take 1 tablet (5 mg total) by mouth 1 (one) time each day. 90 tablet 3 5 Active amLODIPine (NORVASC) 5 mg tablet TAKE 1 TABLET BY MOUTH 1 TIME EACH DAY. 28 tablet 5 025 Discontin ued(Reord er) Active Problems Problem Noted Date Diagnosed Date [...] 12:30 PM EDT Office Visit Adult Medicine [address] [address] Adalberto Zepeda, PA Tear of left biceps muscle, initial [...] PROCEDURE: HISTORICAL TURP; COMMENT: dr. john 2016 COLONOSCOPY 10/24/2008 PROCEDURE: HISTORICAL COLONOSCOPY; COMMENT: diverticulosis COLONOSCOPY 02/27/2018 PROCEDURE: HISTORICAL COLONOSCOPY; COMMENT: Diverticulosis; otherwise negative examination. UPPER GASTROINTESTINAL ENDOSCOPY 02/27/2018 PROCEDURE: [place] UPPER GI ENDOSCOPY PERFORMED; COMMENT: Normal upper [...] rthritis of multiple sites (HCC) Parkinson's disease 09/27/2019 DX:Parkinson 's disease (HCC) Osteoarthritis of both hands 06/09/2020 [...] for your loved ones. For example, child care education coordinator or elderly care for an older adult? [...] Description 05/24/2025 9:30 AM EDT Office Visit [facility] Hematology Oncology [address] [place] [phone] Katja Lainez MD [address] [place] [phone] 07/04/2025 10:30 AM EDT Office Visit Adult Medicine [facility] [address] [place] [address] Adalberto Zepeda PA [address] [place] [address] Health Maintenance Due Date Last Done Comments [...] Documents on File Type Date Recorded Patient Credit Reporting Clerk Expl anation Health Care Decision (hx) 01/07/2018 AD UP DIRECTIVE Health Care Decision (hx) 01/07/2018 AD UP DIRECTIVE Care Teams Vehicle Refinisher Relationship Specialty Start Date End Date Adalberto Zepeda PA [address] [place] [address] PCP - General Internal Medicine 08/18/24
--- OUTSIDE RECORDS SUMMARY | 2025-01-13 10:48 | XMS_ITS | Data Portability ---
Author Organization [place] [facility] Steph Meyer [place] Address [address] [facility] [address] [place] [address] Care Team Providers Care Sports Physiologist Name Role Phone JENNIFER ESPOSITO Referring Provider [...] available 10/21/2024 09:07:28 11/23/2024 11/23/2024 IMPRESSION: 79-year-old gsbre-ytvc-mvbdqh nt man with left shoulder glenohumeral arthritis [...] r, 2 or more view 2023 024 [facility], [address], [place], [address], 05/13/2024 15:34:12 XR, wrist, 3 or more view 2023 024 [facility], [address], [place], [address], 04/01/2024 13:06:37 Medication Orders lidocai ne (PF) 10 mg/mL (1 %) injecti on solutio n 2024 025 Not available 11/23/2024 15:38:24 Marcain e (PF) 0.5 % (5 mg/mL) injecti on solutio n 2024 025 Not available 11/23/2024 15:38:24 triamci nolone acetoni de 40 mg/mL suspens ion for injecti on 2024 025 [email or web address] Not available 11/23/2024 15:38:24 lidocai ne (PF) 10 mg/mL (1 %) injecti on solutio n [address]/Pharmacy #[id number], [address] [place], [address], 10/21/2024 13:13:53 triamci nolone acetoni de 40 mg/mL suspens ion for injecti on [address]/Pharmacy #[id number], [address] [place], [address], 10/21/2024 13:13:53 diclofe nac 1 % topical gel 2024 025 [facility]/Pharmacy #[id number], [address] [place], [address], 10/21/2024 09:08:00 lidocai ne (PF) 10 mg/mL (1 %) injecti on solut n [address]/Pharmacy #[id number], [address] [place], [address], 08/12/2024 08:54:35 triamci nolone acetoni de 40 mg/mL suspens ion for injecti on 2023 024 [email or web address] Not available 08/12/2024 09:02:17 lidocai ne (PF) 10 mg/mL (1 %) injecti on solutio n [address]/Pharmacy #[id number], [address] [place], [address], 08/12/2024 08:54:35 triamci nolone acetoni de 40 mg/mL suspens ion for injecti on [email or web address]/Pharmacy #0693, [address] [facility] [place], [address], 08/12/2024 08:54:35 lidocai ne (PF) 10 mg/mL (1 %) injecti on solutio n [address] [facility], [address] [facility] [place], [address], 05/13/2024 15:34:12 triamci nolone acetoni de 40 mg/mL suspens ion for injecti on [email or web address]/Pharmacy #0693, [address] [facility] [place], [address], 08/12/2024 08:32:28 lidocai ne (PF) 10 mg/mL (1 %) injecti on solutio n 2023 024 [facility]/Pharmacy #[id number], [address] [place], [address], 04/01/2024 13:06:37 triamci nolone acetoni de 40 mg/mL suspens ion for injecti on [email or web address]/Pharmacy #0693, [address] [place], [address], 08/12/2024 08:32:28 Patient TargetsNo targets recorded. Patient Instructions Encounter Date Encounter Id Patient Instructions Last Modified By Organization Details Last Modified Time 04/01/2024 [id number] You have been provided with a cortisone [...] and subluxation. Not available 04/01/2024 11:48:44 05/13/2024 [id number] You have been provided with a cortisone [...] findings noted. Not available 05/13/2024 11:54:26 08/12/2024 [id number] You have been provided with a cortisone [...] portal TAMIE. Not available 08/12/2024 09:33:27 10/21/2024 [id number] You have been provided with a cortisone [...] Closed fracture of distal end of radius 35845452 Active 2023 Leidy frost MD [address], [place], [address], [place] [facility] P 4 13:08:08 Osteoarthro sis of the carpometaca rpal joint of the thumb 43765035 Active 2023 Leidy frost MD [address], [place], [address], [place] [facility], [facility] 4 13:08:36 Arthritis of left glenohumera l joint 6722422469986 100 Active 2023 Leidy frost MD [address], [place], [address], [place] [facility], [facility] 4 11:54:47 Triggering of digit 913307842 Active 2023 Leidy frost MD [address], [place], [address], [place] [facility], [facility] 4 11:56:43 Arthritis of first carpometaca rpal joint of right hand 0737572275002 100 Active 2024 Leidy frost MD [address], [place], [address], [place] [facility], [facility] 5 09:05:52 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 Procedures Surgical History Date Name Laterality Status Provider Name and Address Organization Details Recorded Time 11/23/19 25 AJR Shoulder GH Inj completed Edwardo Salazar MD [address], [place], [address], [place] [facility] 11/23/2024 09:36:38 10/21/19 25 LES finger joint injection completed Leidy Langford MD [address] [facility], [place], [address], [place] [facility] 10/21/2024 09:05:14 08/12/20 24 LES finger joint injection completed Leidy Langford MD [address], [place], [address], [place] [facility] 08/12/2024 09:33:13 08/12/20 24 LES Subacromial Shoulder Inj completed Leidy Langford MD [address], [place], [address], [place] [facility] 08/12/2024 09:32:56 05/13/20 24 LES Subacromial Shoulder Inj completed Leidy Langford MD [address], [place], [address], [place] [facility] 05/13/2024 11:53:24 04/01/20 24 LES trigger finger/De Quervain's injection completed Leidy Langford MD [address] [facility],[address], [place], [address], [place] [facility] 04/01/2024 11:47:54 02/26/20 24 LES finger joint injection completed Leidy Langford MD [address] [facility],[address], [place], [address], [place] [facility] 02/26/2024 13:10:34 Imaging Results None recorded. Procedure Notes None recorded. Medical Equipment None Reported. Allergies Allergen ID Allergen Name Allergen Category Reaction Reaction Severity Criticality Documentation Date Start Date Code Code System Note Provider Name and Address Organization Details Recorded Time 63809 acetamino phen / oxycodone medicatio n Not available Not available Not available 02/26/2024 12570 3 RxKostas Duggan null, [place] [facility] 4 09:31:06 95463 oxycodone medicatio n Not available Not available Not available 02/26/2024 7804 Eloisa Duggan null, [place] [facility] 4 09:31:25 73092 amoxicill in medicatio n Not available Not available Not available 02/26/2024 723 Eloisa Duggan null, [place] [facility] 4 09:31:33 25761 erythromy leisa medicatio n Not available Not available Not available 02/26/2024 4053 Eloisa Duggan null, [place] [facility] 4 09:31:43 85074 minocycli ne medicatio n Not available Not available Not available 04/01/2024 6980 Eloisa Duggan null, [place] [facility], P 4 11:19:40 51091 sertralin e medicatio n Not available Not available Not available 04/01/2024 82206 Eloisa Duggan null, [place] [facility] 4 11:19:48 Medications Name Sig Start [...] Available Not Available Not Available lorazepam @ [facility] 08/12 completed Not Available Not Available Not [...] Updated DateTime 08/12/2024 177.8 cm 22 kg/m2 70250.[address] [place] [facility], 08/12/2024 08:33:47 Date Recorded Body height Body mass index (BMI) Body weight Provider Name and Address Organization Details Last Updated DateTime 10/21/2024 177.8 cm 22 kg/m2 27930.[address] [place] [facility] 10/21/2024 08:55:09 Social History Question Answer Notes LastModified by Organizat ion Details LastModified Time Tobacco Smoking Status Never Smoker Cassidy Duggan null, [place] [facility] 02/26/2024 10:27:52 What Is Your Level Of Alcohol Consumption? None [email or web address] Information not available 02/26/2024 Do You Use Any Illicit Or Recreational Drugs? No [email or web address] Information not available 02/26/2024 Do You Or Have You Ever Used Any Other Forms Of Tobacco Or Nicotine? No [email or web address] Information not available 02/26/2024 Sex: Unknown Functional Status None recorded. Mental Status None recorded. Family History Nothing Reported. Medical History Condition Response Coronary Artery Disease N Gout Y Hyperthyroidism N Blood Transfusion N MRSA N Emphysema N Hypothyroidism N Depression Y [...] Anemia N Brain Injury N Heart Attack (SD) N Osteopenia N Diabetes N Bleeding Disorder N Seizures/Epilepsy N AIDS/HIV N Congestive Heart Failure (CHF) N Asthma N Amputation N Reflux/GERD Y Sleep Apnea N Hepatitis N Aneurysm N Heart Disease N Pulmonary Embolism N Hypertension Y Osteoporosis Y Past Encounters Encounter ID Performer Location Encounter Start Date Encounter Closed Date Diagnosis/Indication Diagnosis SNOMED-CT Code Diagnosis ICD10 Code Diagnosis Note [id number] MD [facility] [address] [address] 02/26/2024 09:18:47 02/26/2024 10:20:59 Pain of left wrist 2386518772 11666 M25.532 Additional diagnosis detail: Left wrist pain Closed fra cture of distal end of radius 29840863 S52.572A Additional diagnosis detail: Other closed intra-venkata cular fracture of distal end of left radius, initial encounter Osteoarthr osis of the carpometacarpal joint of the thumb 05656750 M18.12 Additional diagnosis detail: Primary osteoarthr itis of first carpometac arpal joint of left hand [id number] MD [facility] [address] [address] 04/01/2024 11:09:01 04/01/2024 11:44:29 Closed fracture of distal end of radius 15105231 S52.572A Additional diagnosis detail: Other closed intra-venkata cular fracture of distal end of left radius, initial encounter Osteoarthr osis of the carpometacarpal joint of the thumb 99709505 M18.12 Additional diagnosis detail: Primary osteoarthr itis of first carpometac arpal joint of left hand Triggering of digit 2399 49896 M65.332 Additional diagnosis detail: Trigger middle finger of left hand, trigger ring finger of left hand [id number] MD [facility] 299 [facility] [address] [place] [address] 05/13/2024 10:26:20 05/13/2024 11:10:39 Closed fracture of distal end of radius 63214592 S52.572A Additional diagnosis detail: Other closed intra-venkata cular fracture of distal end of left radius, initial encounter Osteoarthr osis of the carpometacarpal joint of the thumb 62055563 M18.12 Additional diagnosis detail: Primary osteoarthr itis of first carpometac arpal joint of left hand Chronic pa in of left upper limb 2730459983 0161870 M25.512 G89.29 Additional diagnosis detail: Chronic left shoulder pain Pain of le ft shoulder joint 5684381978 0910414 M25.512 Additional diagnosis detail: Pain, joint, shoulder, left Arthritis of left glenohumeral joint 9660530408 938816 M19.012 Triggering of digit 2399 99395 M65.342 M65.332 Additional diagnosis detail: Trigger finger, left ring fingerAddi tional diagnosis detail: Trigger finger, left middle finger [id number] MD [facility] 299 [facility] [address] [place] [address] 08/12/2024 08:16:17 08/12/2024 08:54:36 Arthritis of left glenohumeral joint 9453619338 051629 M19.012 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 4067210994 253089 M18.12 [id number] [facility] 299 [facility] [address] [place] [address] 10/21/2024 08:09:50 10/21/2024 09:19:40 Osteoarthrosis of the carpometacarpal joint of the thumb 01509229 M18.12 Additional diagnosis detail: Primary osteoarthr itis of first carpometac arpal joint of left hand 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 1508211683 681052 M18.11 Osteoarthr itis of finger joint of right hand 0299574211 0635177 M15.1 [id number] MD [facility] 299 [facility] [address] [place] [address] 11/23/2024 08:34:37 11/23/2024 09:36:16 Arthritis of left glenohumeral joint 6265752596 234301 M19.012 Health Concerns Section Related Observation LastModified by Organization Detai ls LastModified Time None Recorded Concern Status LastModified by Organization Details LastModified Time None Recorded Advance Directives Directive None Recorded Payers Encounter Date Sequence Insurance Name Policy Number Policy Carrillo Covered Member ID Carrillo Member ID Guarantor Name 04/01/2024 1 [facility] (MEDICARE REPLACEMENT PPO) [id number] Caleb Martínez [id number] Caleb Martínez 05/13/2024 1 [place] PPO) [id number] Caleb Mejiat [id number] Caleb Martínez 08/12/2024 1 [place] P[place]) [id number] Caleb Mejiat [id number] Caleb Martínez 10/21/2024 1 [place] PPO) [id number] Caleb Crainaert [id number] Caleb Martínez 11/23/2024 1 [facility] (MEDICARE [place]ACEMENT PPO) [id number] Caleb Crainaert [id number] Caleb Martínez Notes Date Note Type [...] release a number of years ago. Leidy Lagnford MD [address] [address], [place], [address], [place] [facility] 04/04/2024 21:14:10 05/13/2024 text/html He presents [...] and pain with activities. He has tried rpcy-thi-vcxbnax medications with have not helped his pain significantly. Leidy Langford MD [address] [facility] [address], [place], [address], [facility] [place] - [facility] [place], P 05/13/2024 11:57:41 08/12/2024 text/html He returns [...] were previously injected. Leidy Langford MD [address] [facility],[address] [address], [place], [address], [facility] [place] - [facility], P 08/12/2024 09:36:08 10/21/2024 text/html He presents [...] helpful. He is on methotrexate per his dynamic balancer. He does have pain in his left shoulder for which I gave him a cortisone injection on 08/12/2024 for glenohumeral joint arthritis. Leidy Langford MD [address] [facility],[address] [address], [place], [address], [facility] [place] 10/21/2024 09:51:15 11/23/2024 text/html 79-year-old trdvo-hvqh-qgrqesko man with left shoulder pain for years. 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 Edwardo Salazar MD [address] [facility] [address], [place], [address], [facility] [place] - [facility], P 11/23/2024 09:41:56
--- OUTSIDE RECORDS SUMMARY | 2025-01-13 10:48 | XMS_ITS | Encounter Summary ---
[facility] Organization [facility] Address [address] [place] [address] Care Team Providers Care Blood Bank Laboratory Technologist Name Role Phone Adalberto Zepeda Primary Care Provider [phone] Reason for Visit * Reason Comments Medication Review Encounter Details Date Type Department Care Team (Late st Contact Info) Description 12/27/2024 12:30 PM EDT Office Visit Adult Medicine [facility] [address] [place] [address] Adalberto Zepeda PA [address] [place], [place] Tear of left biceps muscle, initial [...] for your loved ones. For example, child development director or elderly care for an older adult? 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 Oncology [address] [place] [address] Katja Lainez MD [address] [place] [address] 07/04/2025 10:30 AM EDT Office Visit Adult Medicine [facility] [address] [place] [address] Adalberto Zepeda PA [address] [place] [address] Scheduled Orders Name Type Priority Associated Diagnoses [...] documented as of this encounter Care Teams Blood Bank Laboratory Technologist Relationship Specialty Start Date End Date Adalberto Zepeda PA [address] [place] [address] PCP - General Internal Medicine 08/18/24 documented as of this encounter
--- OUTSIDE RECORDS SUMMARY | 2025-01-13 10:49 | XMS_ITS | Clinical Summary ---
Author Organization [facility] Address [address] [place] [address] Care Team Providers Care Banquet Set Up Person Name Role Phone Adalberto Zepeda PA-C Primary [...] age to complete this topic Care Teams Banquet Set Up Person Relationship Specialty Start Date End Date Adalberto Zepeda, [facility] PCP - General Medical Services 08/15/21
--- OUTSIDE RECORDS SUMMARY | 2025-01-13 10:49 | XMS_ITS | Patient Health Record ---
Author Organization [facility] Address [address] [place] [address] Care Team Providers Care Instrument And Control Technician Name Role Phone Raman WARE, Vandana Primary [...] Referring Provider Last Name Raman Referred Organization [facility] Referred Provider Eugene Iyer Jr Referred Address [address] [place] [address],[address],[place], [place],[address], Referred Provider Specialty Gastroentero logy Referral Priority [...] Problem Status W/U Status Risk Notes Problem 706298152 Long-term use of aspirin therapy (Z79.82) Active confirmed Problem 65592701 Dysphagia, unspecified type (R13.10) Active confirmed Problem 371519008 Gastroesophageal reflux disease, unspecified whether esophagitis present (K21.9) Active confirmed Vital Signs Temperature 97.7 degrees Fahrenheit 12/01/2024 Blood pressure diastolic 01 mm Hg 12/01/2024 Height 70 in 12/01/2024 Blood pressure systolic 001 mm Hg 12/01/2024 Weight 148 lbs 12/01/2024 BMI 21.23 kg/m2 12/01/2024 Encounters Encounter Location Date Provider Diagnosis [facility] [address] [place] [address] 12/01/2024 Eugene Iyer Jr Dysphagia, unspecified type [...] Name:Eugene Juaquin domingo , 01/14/2025 09:20:00 AM, [address] [place] [address] , [place], [place], [phone], Insurance Providers Payer Name Payer Address Payer Phone Subscriber Number Group Number Insured Name Patient Relationship to Insured Coverage Start Date Coverage End Date [facility] [address] [place] [address] [id number] KOFI STANLEY Self - patient is the insured Medical (General) History Medical History History ICD Code hypertension Cardiomyopathy/bradycardia/ASCVD PTSD/anxiety/depression Hypertension Hyperlipidemia Parkinson's disease Hyperlipidemia Rheumatoid/osteoarthritis Chronic kidney disease Surgical History Surgery Date(Month/Year) Tonsillectomy colonoscopy 2019, [place] Lithotripsy for nephrolithiasis
== END 2025-01-13 09:59 | disposition home or self-care (01) ==
LOC: HO.HSMS 09:12
PROVIDERS: PCP Physician Assistant Medical; Visit Provider Psychiatry & Neurology Neurology
DX: G20.A1 Parkinson's disease without dyskinesia, without mention of fluctuations (principal)
CPT/HCPCS: 99214; G2211

== ENCOUNTER → 2025-01-13 09:12 | Outpatient (BNVA) | payer MEDICARE, SELFPAY | PROVIDERS: PCP Physician Assistant Medical; Visit Provider Psychiatry & Neurology Neurology | DX: G20.A1 Parkinson's disease without dyskinesia, without mention of fluctuations (principal) | CPT/HCPCS: 99212 ==

== ENCOUNTER 2025-01-14 07:11 | Day surgery (SDC) | payer MEDICARE, SELFPAY ==
[2025-01-12 13:20] VITALS: BMI 23.9
--- NOTE | 2025-01-13 11:50 | HO.ANESPROP2 ---
Documented by User: Herminia Caldwell NP 01/13/25 11:54 HPI - Anesthesia Eval Consult details Narrative: 79yo M for Upper Endoscopy Follows [facility] Cardiology for CAD, moderate (INDIRA 1.16). Stable at 12/2024 office visit for 6 month f/u [facility] Active Problems Active Problems: All Active Problems Nonrheumatic aortic (valve) stenosis (Acute) Parkinson's disease without dyskinesia (Acute) Acute ankle pain (Acute) Fall (Acute) S/P cardiac cath (Acute) Atherosclerotic cardiovascular disease (Acute) Pseudogout (Acute) Valvular heart disease (Acute) Cardiomyopathy (Acute) Immunization counseling (Acute) CKD (chronic kidney disease) (Acute) Osteoporosis (Acute) Biceps tendinopathy of right upper extremity (Acute) Methotrexate, oil heaterman, current use (Acute) Footdrop (Acute) Osteoarthritis of hands, bilateral (Acute) Rheumatoid arthritis involving both hands with negative rheumatoid factor (Acute) Seronegative rheumatoid arthritis (Acute) Past Medical History Medical History 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 Gout Footdrop BPH (benign prostatic hyperplasia) Hypertension Diverticulosis Thrombocytopenia Acid reflux Basal cell carcinoma Cholelithiasis Nephrolithiasis PTSD (post-traumatic stress disorder) Parkinsons Osteoarthritis of hands, bilateral Chronic sinus bradycardia Restless leg Seronegative rheumatoid arthritis Dyslipidemia Family History Family History Mother Arthritis Surgical History Surgical History (Updated 01/14/25 @ 07:[address] RN) S/P cardiac cath S/P trigger finger release Hx of endoscopy S/P TURP Hx of tonsillectomy Hx of lithotripsy Hx of colonoscopy Social History Social History Household Members: Spouse Housing: House Do you presently have visiting nurse or other home services: No Alcohol intake: never Patient Tobacco Use Status: Never used Tobacco e-Cigarette/Vaping Use: Never Used Use of substances other than those prescribed or required for medical reasons: No Are you DNR?: Yes Advance Directives: No Advance Directives Information Provided: Yes service: Yes Current occupational status: retired 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 Meds Allergies Allergy/AdvReac Type Severity Reaction Status Date / Time sertraline Allergy Intermediate nausea,dizz Verified 01/14/25 08:14 iness acetaminophen [From Percocet] Allergy Unknown unknown Verified 01/14/25 08:14 amoxicillin Allergy Unknown unknown Verified 01/14/25 08:14 erythromycin base Allergy Unknown unknown Verified 01/14/25 08:14 minocycline Allergy Unknown unknown Verified 01/14/25 08:14 oxycodone [From Percocet] Allergy Unknown unknown Verified 01/14/25 08:14 polymyxinb tmp Allergy Intermediate swelling, Uncoded 01/13/25 09:36 rash Home Medications ?Medication ?Instructions ?Recorded ?Confirmed ?Last Taken ?Type amlodipine 10 mg tablet 10 mg PO DAILY 07/11/22 01/14/25 01/14/25 06:30 History bupropion HCl 100 mg tablet 200 mg PO DAILY 07/11/22 01/14/25 Unknown History doxycycline hyclate 100 mg tablet 100 mg PO BID 07/11/22 01/14/25 Unknown History entacapone 200 mg tablet 200 mg PO .6 x a day with carbi 07/11/22 01/14/25 Unknown History lisinopril 40 mg tablet 40 mg PO DAILY 07/11/22 01/14/25 Unknown History metronidazole 0.75 % topical cream 1 appl topical DAILY 07/11/22 01/14/25 Unknown History omeprazole 20 mg capsule,delayed 20 mg PO DAILY 07/11/22 01/14/25 01/14/25 06:30 History release ropinirole 2 mg tablet 2 mg PO BID 07/11/22 01/14/25 Unknown History tamsulosin 0.4 mg capsule 0.4 mg PO BEDTIME 07/11/22 01/14/25 Unknown History ammonium lactate 12 % topical cream 1 appl topical DAILY 11/29/22 01/14/25 Unknown History aspirin 81 mg tablet,delayed 81 mg PO DAILY 12/30/23 01/14/25 01/07/25 History release paroxetine HCl 10 mg tablet (Paxil) 10 mg PO DAILY 07/05/24 01/14/25 Unknown History prednisone 10 mg tablet 10 mg PO DIRECTED 01/13/25 01/14/25 01/14/25 06:30 History quetiapine 100 mg tablet 100 mg PO BEDTIME 01/13/25 01/14/25 Unknown History Exam Height,Weight and Vital Signs: Height 5 ft 8 in Weight 71.214 kg Pertinent Lab Results Pertinent Lab Results: Laboratory Tests 09/28/24 11:35 WBC 7.6 Hgb 11.7 L Hct 35.6 L Plt Count 172 Sodium 142 Potassium 4.3 Chloride 106 Carbon Dioxide 28 BUN 26 H Creatinine 1.28 Narrative Narrative: ECHO 12/2024 Conclusions: - 1. Mildly to moderately reduced LV ejection fraction 40-45% with impaired relaxation filling pattern 2. Moderately dilated left atrium 3. Moderate aortic stenosis 4. Normal RV systolic pressure 5. Upper limits of normal ascending aortic size 6. No gross pericardial effusion EKG 06/2024 Details: EKG with sinus bradycardia at 48/Min; no significant ST-T changes and otherwise unremarkable. Normal CA and corrected QT. 11/2023 Myocardial perfusion imaging study with flom-hi-[id number] intensity anterior wall ischemia. LVEF was 51%. Cardiac catheterization from 11/2023 with severe stenosis in a small branch from ramus and ostial OM1. Small vessels. Mild diffuse disease with heavy calcification, proximal LAD. Medical management has been recommended. Overall, we can treat for stable coronary disease. 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 Gout Footdrop BPH (benign prostatic hyperplasia) Hypertension Diverticulosis Thrombocytopenia Acid reflux Basal cell carcinoma Cholelithiasis Nephrolithiasis PTSD (post-traumatic stress disorder) Parkinsons Osteoarthritis of hands, bilateral Chronic sinus bradycardia Restless leg Seronegative rheumatoid arthritis Dyslipidemia Family History Family History Mother Arthritis Family history of problems with anesthesia: No Surgical History Surgical History (Updated 01/14/25 @ 07:[address], RN) S/P cardiac cath S/P trigger finger release Hx of endoscopy S/P TURP Hx of tonsillectomy Hx of lithotripsy Hx of colonoscopy History of Problems with Anesthesia: No Social History Social History Household Members: Spouse Housing: House Do you presently have visiting nurse or other home services: No Alcohol intake: never Patient Tobacco Use Status: Never used Tobacco e-Cigarette/Vaping Use: Never Used Use of substances other than those prescribed or required for medical reasons: No Are you DNR?: Yes Advance Directives: No Advance Directives Information Provided: Yes service: Yes 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 occupational status: retired 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 Meds Allergies Allergy/AdvReac Type Severity Reaction Status Date / Time sertraline Allergy Intermediate nausea,dizz Verified 01/14/25 08:14 iness acetaminophen [From Percocet] Allergy Unknown unknown Verified 01/14/25 08:14 amoxicillin Allergy Unknown unknown Verified 01/14/25 08:14 erythromycin base Allergy Unknown unknown Verified 01/14/25 08:14 minocycline Allergy Unknown unknown Verified 01/14/25 08:14 oxycodone [From Percocet] Allergy Unknown unknown Verified 01/14/25 08:14 polymyxinb tmp Allergy Intermediate swelling, Uncoded 01/13/25 09:36 rash Home Medications ?Medication ?Instructions ?Recorded ?Confirmed ?Last Taken ?Type amlodipine 10 mg tablet 10 mg PO DAILY 07/11/22 01/14/25 01/14/25 06:30 History bupropion HCl 100 mg tablet 200 mg PO DAILY 07/11/22 01/14/25 Unknown History doxycycline hyclate 100 mg tablet 100 mg PO BID 07/11/22 01/14/25 Unknown History entacapone 200 mg tablet 200 mg PO .6 x a day with carbi 07/11/22 01/14/25 Unknown History lisinopril 40 mg tablet 40 mg PO DAILY 07/11/22 01/14/25 Unknown History metronidazole 0.75 % topical cream 1 appl topical DAILY 07/11/22 01/14/25 Unknown History omeprazole 20 mg capsule,delayed 20 mg PO DAILY 07/11/22 01/14/25 01/14/25 06:30 History release ropinirole 2 mg tablet 2 mg PO BID 07/11/22 01/14/25 Unknown History tamsulosin 0.4 mg capsule 0.4 mg PO BEDTIME 07/11/22 01/14/25 Unknown History ammonium lactate 12 % topical cream 1 appl topical DAILY 11/29/22 01/14/25 Unknown History aspirin 81 mg tablet,delayed 81 mg PO DAILY 12/30/23 01/14/25 01/07/25 History release paroxetine HCl 10 mg tablet (Paxil) 10 mg PO DAILY 07/05/24 01/14/25 Unknown History prednisone 10 mg tablet 10 mg PO DIRECTED 01/13/25 01/14/25 01/14/25 06:30 History quetiapine 100 mg tablet 100 mg PO BEDTIME 01/13/25 01/14/25 Unknown History Exam Airway Mallampati Class: II TM Dist: >3cm Neck ROM: Full Assessment and Plan Assessment Anesthesia Assessment: Anesthesia Plan Discussed Final Anesthetic Review Family History of Problems with Anesthesia: No History of Problems with Anesthesia: No NPO: Yes ASA Class: III Final Preanesthetic Review: No Changes in Pt Med Stat, Meds/Allgs Chart Reviewed, Consent Obtained/Reviewed and Anes Risks/Benef Reviewed Patient Risk: Intermediate Procedure Risk: Low Anesthetic Plan Anesthetic Plan: TIVA Disposition: Standard PACU
[2025-01-14 07:49] VITALS: BMI 23.7
[2025-01-14 08:00] VITALS: BP 150/68; PULSE 57; RESP 15; TEMP 36.8; O2SAT 99
[2025-01-14] MEDS: Lactated Ringers 1,000 ML 100 ML IVCONT (08:11)
--- NOTE | 2025-01-14 09:21 | P.HPSUR_ITS ---
Pre-Procedural Eval Section A - 24 Hr Update-Section A only Date of Service: 01/14/25 Section B - Complete if H&P > 30 days Chief Complaint: Dysphagia, unspecified Details of Present Illness: see H&P no changes Relevant Family History (Specify if Yes): No Relevant Social History: None Present Medications: see Short Stay Collaborative assessment Medical History: No relevant PMH Allergies: Allergies Allergy/AdvReac Type Severity Reaction Status Date / Time sertraline Allergy Intermediate nausea,dizz Verified 01/14/25 08:14 iness acetaminophen [From Percocet] Allergy Unknown unknown Verified 01/14/25 08:14 amoxicillin Allergy Unknown unknown Verified 01/14/25 08:14 erythromycin base Allergy Unknown unknown Verified 01/14/25 08:14 minocycline Allergy Unknown unknown Verified 01/14/25 08:14 oxycodone [From Percocet] Allergy Unknown unknown Verified 01/14/25 08:14 polymyxinb tmp Allergy Intermediate swelling, Uncoded 01/13/25 09:36 rash Review of Systems Sugical H&P ROS: Negative: Constitution, Cardiovascular, Respiratory, Neur ological, Psychiatric, Hem-Onc, Allergic/Immunologic, Gastrointestinal, Genitourinary, Musculoskeletal, Integumentary, Endocrine and Eyes/Ears/Nose/Throat Exam Surgical H&P Exam: Normal: HEENT, Normal: Heart, Normal: Lungs, Normal: Extremities, Normal: Abdomen, Normal: Skin and Normal: Neurological Plan Diagnosis/Plan: Unchanged I have reviewed the history and physical and performed a pertinent physical examination on my patient. No changes have occurred unless specified. Time Spent With Patient Time: Total time managing care of this patient today ____ minutes.
[2025-01-14 09:49] VITALS: BP 105/55; PULSE 55; RESP 18; TEMP 36.9; O2SAT 98
--- NOTE | 2025-01-14 09:53 | PM.OP ---
Brief Operative Note Date of Service: 01/14/25 Pre-op diagnosis: dysphagia Post-op diagnosis: same Procedure: egd Surgeon: Eugene Iyer MD Anesthesia: MAC Was an Folding Rules Printing Machine Operator used for this Procedure?: No Estimated blood loss (mL): 2 Pathology: other Condition: stable Disposition: PACU
[2025-01-14 10:04] VITALS: BP 112/64; PULSE 55; RESP 18; TEMP 36.7; O2SAT 98
--- NOTE | 2025-01-14 10:46 | OP_ITS ---
DATE OF SERVICE: 01/14/2025 SURGEON: Eugene Iyer MD INDICATIONS: Dysphagia. PREOPERATIVE DIAGNOSIS: POSTOPERATIVE DIAGNOSIS: PROCEDURE PERFORMED: Upper endoscopy with balloon dilation and biopsy. ESTIMATED BLOOD LOSS: COMPLICATIONS: ANESTHESIA: Monitored anesthesia care. ASSISTANTS: SPECIMENS: DESCRIPTION OF PROCEDURE: A history and physical was performed. The risks and benefits of the procedure were explained to the patient, and informed consent was obtained. The patient was placed in the left lateral decubitus position. The Olympus video gastroscope was introduced into the esophagus, stomach, and duodenum. Examination was performed. The scope was removed. He tolerated the procedure well and was returned to the recovery area in stable condition. FINDINGS: Esophagus: There was erosive esophagitis with ulceration extending approximately 5 to 6 mm above the EG junction. There was mild narrowing of the EG junction suggestive of an early peptic stricture. This was balloon dilated at 18 and 20 mm with a balloon for 60 seconds at each inflation. The scope passed through into the stomach. There was a 5 cm hiatal hernia. Stomach: The stomach showed no evidence of masses or ulcers. Antral biopsies were obtained and biopsies were then obtained from the EG junction. Duodenum: The bulb and 2nd portion were normal. IMPRESSION: Esophagitis. RECOMMENDATION: Follow up the biopsy results. MD ADRIEL Whittaker/FAMILIAL / [id number]
== END 2025-01-14 10:51 | disposition home or self-care (01) ==
PROVIDERS: PCP Physician Assistant Medical; Visit Provider Internal Medicine Gastroenterology
PROC: 0DJ08ZZ Inspection of Upper Intestinal Tract, Via Natural or Artificial Opening Endoscopic (ICD-10-PCS; CPT 43235; principal; 2025-01-14 09:20)
DX: R13.10 Dysphagia, unspecified (principal); K22.2 Esophageal obstruction; K22.10 Ulcer of esophagus without bleeding; K44.9 Diaphragmatic hernia without obstruction or gangrene; K21.9 Gastro-esophageal reflux disease without esophagitis; G20.A1 Parkinson's disease without dyskinesia, without mention of fluctuations; I25.10 Atherosclerotic heart disease of native coronary artery without angina pectoris; I12.9 Hypertensive chronic kidney disease with stage 1 through stage 4 chronic kidney disease, or unspecified chronic kidney disease; N18.9 Chronic kidney disease, unspecified; I42.9 Cardiomyopathy, unspecified; R00.1 Bradycardia, unspecified; E78.5 Hyperlipidemia, unspecified; M06.9 Rheumatoid arthritis, unspecified; F41.9 Anxiety disorder, unspecified; Z87.442 Personal history of urinary calculi; Z79.52 Long term (current) use of systemic steroids; Z79.82 Long term (current) use of aspirin; Z79.899 Other long term (current) drug therapy; Z88.0 Allergy status to penicillin; Z88.1 Allergy status to other antibiotic agents; Z88.5 Allergy status to narcotic agent
CPT/HCPCS: 43249; 43239; 88305; 88313; 88342; C1726; J2704

== ENCOUNTER 2025-01-26 07:43 | Outpatient (REF) | payer BC, SELFPAY ==
--- OUTSIDE RECORDS SUMMARY | 2025-01-26 07:47 | XMS_ITS ---
Author Organization [facility] Address [address] [place] [address] Care Team Providers Care Clay Stain Mixer Name Role Phone Raman WARE, Vandana Primary Care Provider Unavail autumn Iyer Jr, Eugene Unavailable REASON FOR VISIT schedule appt 2 months Encounters Encounter Location Date Provider Diagnosis [facility] [address] [place] [address] 01/14/2025 Eugene Iyer Jr Plan Of Treatment Next Appt Details Provider Name:Eugene domingo Jr, 04/13/2025 10:40:00 AM, [address], [address], [place], [address], Progress Notes * KOFI STANLEYDOB:1945 (79 yo M)Acc No.[id number]:01/14/2025 Patient:?KOFI STANLEY :1945???Age:79 Y???Sex:Male Address:[place] [address] * true * Date:? Generated for Printi ng/Fakatlyng/eTransmitting on:?01/26/2025 07:47 AM EDT
--- OUTSIDE RECORDS SUMMARY | 2025-01-26 07:47 | XMS_ITS | Clinical Summary ---
Author Organization [facility] Address [address] [place] [address] Phone Care Team Providers Care Weight And Balance Control Agent Name Role Phone Adalberto Zepeda Primary Care Provider [phone] Allergies Active Allergy Reactions Criticality Noted Date [...] 1 (one) time each day. 1 Active hydroxychloroqu ine (PLAQUENIL) 200 mg tablet TAKE 1 TAB TWICE DAILY X5 DAYS A WEEK AND 1 TAB DAILY X2 DAYS A WEEK 4 Active ketoconazole (NIZORAL) 2 % cream Apply 1 Application topically 2 (two) times a day. Active lidocaine 0.5% (SOLARCAINE) 0.5 % gel external gel Apply 5 g topically 2 times daily as needed. 1 Active lisinopril (PRINIVIL,ZESTR IL) 40 mg tablet [...] mupirocin (BACTROBAN) 2 % ointment Apply topically. Act charly tamsulosin (FLOMAX) 0.4 mg 24 hr capsule [...] each day. 90 tablet 3 5 Active Active Problems Problem Noted Date Diagnosed Date [...] 12:30 PM EDT Office Visit Adult Medicine [address] [phone] Adalberto Zepeda PA Tear of left biceps [...] negative examination. UPPER GASTROINTESTINAL ENDOSCOPY 02/27/2018 PROCEDURE: [place] UPPER GI ENDOSCOPY PERFORMED; COMMENT: Normal upper [...] your loved ones. For example, child development specialist or elderly care for an older [...] 05/24/2025 9:30 AM EDT Office Visit [facility] Hematology Oncology [address] [place] [phone] Jimenez-Katja Hilton MD [address] [place] [phone] 07/04/2025 10:30 AM EDT Office Visit Adult Medicine [facility] [address] [place] [address] Adalberto Zepeda PA [address] [place] [address] Health Maintenance Due Date Last Done Comments [...] age to complete this topic Meningococcal B Vaccine Aged Out No l onger eligible based on patient's age to complete this topic RSV Immunization Adult Patients Discontinued RSV Immunization Patients Under 20 months [...] Documents on File Type Date Recorded Patient Protective Signal Installer Expl anation Health Care Decision (hx) 01/07/2018 AD UP DIRECTIVE Health Care Decision (hx) 01/07/2018 AD UP DIRECTIVE Care Teams Weight And Balance Control Agent Relationship Specialty Start Date End Date Adalberto Zepeda PA [address] [place] [address] PCP - General Internal Medicine 08/18/24
--- OUTSIDE RECORDS SUMMARY | 2025-01-26 07:47 | XMS_ITS | Data Portability ---
Author Organization [facility] Steph Meyre AONE [place] Address [address] [facility] [address] [place] [address] Care Team Providers Care It Infrastructure Manager Name Role Phone JENNIFER ESPOSITO Referring Provider [...] available 10/21/2024 09:07:28 11/23/2024 11/23/2024 IMPRESSION: 79-year-old ecziz-xyqv-xrztol nt man with left shoulder glenohumeral arthritis [...] r, 2 or more view 2023 024 on license of [facility], [address], [place], [address], 05/13/2024 15:34:12 XR, wrist, 3 or more view 2023 024 on license of [facility], [address], [place], [address], 04/01/2024 13:06:37 Medication Orders lidocai ne (PF) 10 mg/mL (1 %) injecti on solutio n 2024 025 Not available 11/23/2024 15:38:24 Marcain e (PF) 0.5 % (5 mg/mL) injecti on solutio n 2024 025 [email or web address] Not available 11/23/2024 15:38:24 triamci nolone acetoni de 40 mg/mL suspens ion for injecti on 2024 025 [email or web address] Not available 11/23/2024 15:38:24 lidocai ne (PF) 10 mg/mL (1 %) injecti on solutio n [address]/[facility]armacy #[id number], [address] [place], [address], 10/21/2024 13:13:53 triamci nolone acetoni de 40 mg/mL suspens ion for injecti on [address]/Pharmacy #0693, [address] [place], [address], 10/21/2024 13:13:53 diclofe nac 1 % topical gel 2024 025 [facility]/Pharmacy #[id number], [address] [place], [address], 10/21/2024 09:08:00 lidocai ne (PF) 10 mg/mL (1 %) injecti on solut n [address]/Pharmacy #0693, [address] [place], [address], 08/12/2024 08:54:35 triamci nolone acetoni de 40 mg/mL suspens ion for injecti on 2023 024 [email or web address] Not available 08/12/2024 09:02:17 lidocai ne (PF) 10 mg/mL (1 %) injecti on solutio n [address]/Pharmacy #0693, [address] [place], [address], 08/12/2024 08:54:35 triamci nolone acetoni de 40 mg/mL suspens ion for injecti on [email or web address]/Pharmacy #0693, [address] [facility] [place], [address], 08/12/2024 08:54:35 lidocai ne (PF) 10 mg/mL (1 %) injecti on solutio n 2023 0[facility] [address] [facility] [place], [address], 05/13/2024 15:34:12 triamci nolone acetoni de 40 mg/mL suspens ion for injecti on [email or web address]/Pharmacy #0693, [address] [facility] [place], [address], 08/12/2024 08:32:28 lidocai ne (PF) 10 mg/mL (1 %) injecti on solutio n 2023 024 [facility]/Pharmacy #0693, [address] [place], [address], 04/01/2024 13:06:37 triamci nolone acetoni de 40 mg/mL suspens ion for injecti on [address]/Pharmacy #0693, [address] [place], [address], 08/12/2024 08:32:28 Patient TargetsNo targets recorded. Patient Instructions Encounter Date Encounter Id Patient Instructions Last Modified By Organization Details Last Modified Time 04/01/2024 [id number] You have been provided with a cortisone [...] and subluxation. Not available 04/01/2024 11:48:44 05/13/2024 [id number] You have been provided with a cortisone [...] findings noted. Not available 05/13/2024 11:54:26 08/12/2024 [id number] You have been provided with a cortisone [...] portal TAMIE. Not available 08/12/2024 09:33:27 10/21/2024 [id number] You have been provided with a cortisone [...] Closed fracture of distal end of radius 95945570 Active 2023 Leidy frost MD [address], [place], [address], [facility] 4 13:08:08 Osteoarthro sis of the carpometaca rpal joint of the thumb 32825736 Active 2023 Leidy frost MD [address], [place], [address], [facility] 4 13:08:36 Arthritis of left glenohumera l joint 7505652784962 100 Active 2023 Leidy frost MD [address], [place], [address], [facility] 4 11:54:47 Triggering of digit 082962625 Active 2023 Leidy frost MD [address], [place], [address], [place] [facility] 4 11:56:43 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 Procedures Surgical History Date Name Laterality Status Provider Name and Address Organization Details Recorded Time 11/23/19 25 AJR Shoulder GH Inj completed Edwardo Salazar MD [address], [place], [address], [facility] 11/23/2024 09:36:38 10/21/19 25 LES finger joint injection completed Leidy Langford MD [address] [facility], [place], [address], [facility] 10/21/2024 09:05:14 08/12/20 24 LES finger joint injection completed Leidy Langford MD [address], [place], [address], [facility] 08/12/2024 09:33:13 08/12/20 24 LES Subacromial Shoulder Inj completed Leidy Langford MD [address], [place], [address], [facility] 08/12/2024 09:32:56 05/13/20 24 LES Subacromial Shoulder Inj completed Leidy Langford MD [address], [place], [address], [place] [facility] 05/13/2024 11:53:24 04/01/20 24 LES trigger finger/De Quervain's injection completed Leidy Langford MD [address] [facility],[address], [place], [address], [facility] 04/01/2024 11:47:54 02/26/20 24 LES finger joint injection completed Leidy Langford MD [address] [facility],[address], [place], [address], [place] [facility] 02/26/2024 13:10:34 Imaging Results None recorded. Procedure Notes None recorded. Medical Equipment None Reported. Allergies Allergen ID Allergen Name Allergen Category Reaction Reaction Severity Criticality Documentation Date Start Date Code Code System Note Provider Name and Address Organization Details Recorded Time 98689 acetamino phen / oxycodone medicatio n Not available Not available Not available 02/26/2024 63352 3 RxKostas Duggan null, [facility] 4 09:31:06 20223 oxycodone medicatio n Not available Not available Not available 02/26/2024 7804 Eloisa Duggan null, [facility] 4 09:31:25 52123 amoxicill in medicatio n Not available Not available Not available 02/26/2024 723 Eloisa Duggan null, [facility] 4 09:31:33 78036 erythromy leisa medicatio n Not available Not available Not available 02/26/2024 4053 Eloisa Duggan null, [facility] 4 09:31:43 22354 minocycli ne medicatio n Not available Not available Not available 04/01/2024 6980 Eloisa Duggan null, [facility] 4 11:19:40 74330 sertralin e medicatio n Not available Not available Not available 04/01/2024 54191 Eloisa Duggan null, [facility] 4 11:19:48 Medications Name Sig Start [...] Available Not Available Not Available lorazepam @ [facility] 08/12 completed Not Available Not Available Not [...] Updated DateTime 08/12/2024 177.8 cm 22 kg/m2 85427.[address] [facility], 08/12/2024 08:33:47 Date Recorded Body height Body mass index (BMI) Body weight Provider Name and Address Organization Details Last Updated DateTime 10/21/2024 177.8 cm 22 kg/m2 84337.[address] [facility] 10/21/2024 08:55:09 Social History Question Answer Notes LastModified by Organizat ion Details LastModified Time Tobacco Smoking Status Never Smoker Cassidy Duggan null, [facility] 02/26/2024 10:27:52 What Is Your Level Of Alcohol Consumption? None [email or web address] Information not available 02/26/2024 Do You Use Any Illicit Or Recreational Drugs? No [email or web address] Information not available 02/26/2024 Do You Or Have You Ever Used Any Other Forms Of Tobacco Or Nicotine? No [email or web address] Information not available 02/26/2024 Sex: Unknown Functional Status None recorded. Mental Status None recorded. Family History Nothing Reported. Medical History Condition Response Coronary Artery Disease N Gout Y Hyperthyroidism N Blood Transfusion N MRSA N Emphysema N Depression Y COPD N [...] Anemia N Brain Injury N Heart Attack ([place]) N Osteopenia N Diabetes N Bleeding Disorder N Seizures/Epilepsy N AIDS/HIV N Congestive Heart Failure (CHF) N Asthma N Amputation N Reflux/GERD Y Sleep Apnea N Hepatitis N Aneurysm N Heart Disease N Pulmonary Embolism N Hypertension Y Osteoporosis Y Past Encounters Encounter ID Performer Location Encounter Start Date Encounter Closed Date Diagnosis/Indication Diagnosis SNOMED-CT Code Diagnosis ICD10 Code Diagnosis Note [id number] [facility] [address] [address] 02/26/2024 09:18:47 02/26/2024 10:20:59 Pain of left wrist 6893227185 25901 M25.532 Additional diagnosis detail: Left wrist pain Closed fra cture of distal end of radius 35358830 S52.572A Additional diagnosis detail: Other closed intra-venkata cular fracture of distal end of left radius, initial encounter Osteoarthr osis of the carpometacarpal joint of the thumb 70850052 M18.12 Additional diagnosis detail: Primary osteoarthr itis of first carpometac arpal joint of left hand [id number] [facility] [address] [address] 04/01/2024 11:09:01 04/01/2024 11:44:29 Closed fracture of distal end of radius 82088524 S52.572A Additional diagnosis detail: Other closed intra-venkata cular fracture of distal end of left radius, initial encounter Osteoarthr osis of the carpometacarpal joint of the thumb 59814916 M18.12 Additional diagnosis detail: Primary osteoarthr itis of first carpometac arpal joint of left hand Triggering of digit 2399 42461 M65.332 Additional diagnosis detail: Trigger middle finger of left hand, trigger ring finger of left hand [id number] [facility] 299 [facility] [address] [place] [address] 05/13/2024 10:26:20 05/13/2024 11:10:39 Closed fracture of distal end of radius 86341911 S52.572A Additional diagnosis detail: Other closed intra-venkata cular fracture of distal end of left radius, initial encounter Osteoarthr osis of the carpometacarpal joint of the thumb 24820738 M18.12 Additional diagnosis detail: Primary osteoarthr itis of first carpometac arpal joint of left hand Chronic pa in of left upper limb 7747740491 7260941 M25.512 G89.29 Additional diagnosis detail: Chronic left shoulder pain Pain of le ft shoulder joint 1609456549 3959651 M25.512 Additional diagnosis detail: Pain, joint, shoulder, left Arthritis of left glenohumeral joint 8143597989 066151 M19.012 Triggering of digit 2399 29822 M65.342 M65.332 Additional diagnosis detail: Trigger finger, left ring fingerAddi tional diagnosis detail: Trigger finger, left middle finger [id number] [facility] 299 [facility] [address] [place] [address] 08/12/2024 08:16:17 08/12/2024 08:54:36 Arthritis of left glenohumeral joint 5429826492 182627 M19.012 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 2282256614 582775 M18.12 [id number] [facility] [address] [facility] [address] [place] [address] 10/21/2024 08:09:50 10/21/2024 09:19:40 Osteoarthrosis of the carpometacarpal joint of the thumb 01671609 M18.12 Additional diagnosis detail: Primary osteoarthr itis of first carpometac arpal joint of left hand 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 9357417823 634270 M18.11 Osteoarthr itis of finger joint of right hand 0035378509 8135444 M15.1 [id number] MD BLANCO [facility] 299 [facility] [address] [place] [address] 11/23/2024 08:34:37 11/23/2024 09:36:16 Arthritis of left glenohumeral joint 5946424609 286805 M19.012 Health Concerns Section Related Observation LastModified by Organization Detai ls LastModified Time None Recorded Concern Status LastModified by Organization Details LastModified Time None Recorded Advance Directives Directive None Recorded Payers Encounter Date Sequence Insurance Name Policy Number Policy Carrillo Covered Member ID Carrillo Member ID Guarantor Name 04/01/2024 1 [facility] (MEDICARE REPLACEMENT PPO) [id number] Caleb Martínez [id number] Caleb Martínez 05/13/2024 1 [place] PPO) [id number] Caleb Mejiat [id number] Caleb Martínez 08/12/2024 1 [place] PPO) [id number] Caleb Mejiat [id number] Caleb Martínez 10/21/2024 1 [place] PPO) [id number] Caleb Crainaert [id number] Caleb Martínez 11/23/2024 1 [facility] ([place]ARE [place]ACEMENT PPO) [id number] Caleb Crainaert [id number] Caleb Martínez Notes Date Note Type [...] of years ago. Leidy Langford MD [address] [address], [place], [address], [place] [facility] 04/04/2024 21:14:10 05/13/2024 text/html He presents [...] and pain with activities. He has tried lenw-urr-dnakkft medications with have not helped his pain significantly. Leidy Langford MD [address] [facility] [address], [place], [address], [facility] - [facility] 05/13/2024 11:57:41 08/12/2024 text/html He returns [...] were previously injected. Leidy Langford MD [address] [facility],[address] [address], [place], [address], [facility] - [facility] 08/12/2024 09:36:08 10/21/2024 text/html He presents [...] helpful. 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 He does have pain in his left shoulder for which I gave him a cortisone injection on 08/12/2024 for glenohumeral joint arthritis. Leidy Langford MD [address] [facility],[address] [address], [place], [address], [facility] 10/21/2024 09:51:15 11/23/2024 text/html 79-year-old tqong-azsc-muupsjwi man with left shoulder pain for years. 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 Edwardo Salazar MD [address] [facility] [address], [place], [address], [facility] - [facility] 11/23/2024 09:41:56
--- OUTSIDE RECORDS SUMMARY | 2025-01-26 07:48 | XMS_ITS ---
Author Organization [facility] Address [address] [place] [address] Drive [address] [place] [address] Care Team Providers Care Prison Guard Name Role Phone Raman WARE, Vandana Primary Care Provider Unavail autumn Iyer Jr, Eugene Brown [phone] REASON FOR VISIT pathology Medications Medication SIG (Take, Route, Fr equency, Duration) Notes Start Date End Date Status Omeprazole 40 MG 1 capsule 1/2 to 1 h our before morning meal Orally Once a day for 30 days 01/22/2025 Active Encounters Encounter Location Date Provider Diagnosis [facility] [address] [place] [address] 01/22/2025 Eugene Iyer Jr Plan Of Treatment Medication Medication Name Sig Start Date Stop Date Notes Omeprazole 40 MG 1 capsule 1/2 to 1 h our before morning meal Orally Once a day for 30 days 01/22/2025 Next Appt Details Provider Name:Eugene domingo Jr, 04/13/2025 10:40:00 AM, [address] [place] [address], [address], [place], [address], Progress Notes * KOFI STANLEYDOB:1945 (79 yo M)Acc No.[id number]:01/22/2025 Patient:?KOFI STANLEY :1945???Age:79 Y???Sex:Male Address:[place], [address] * Refills? Start Omeprazole Capsule Delayed Release, 40 MG, Orally, 30, 1 capsule 1/2 to 1 hour before morning meal, Once a day, 30 days, Refills=11 * true * Date:? Generated for Rona leung/Hesham/Petersonitting on:?01/26/2025 07:47 AM EDT
--- OUTSIDE RECORDS SUMMARY | 2025-01-26 07:48 | XMS_ITS ---
Author Organization [facility] Address [address] [place] [address] [place] [address] Care Team Providers Care Associate Professor Of Economics Name Role Phone Raman WARE, Vandana Primary Care Provider Unavail Eugene Hoang Jr Unavailable REASON FOR VISIT dysphagia Encounters Encounter Location Date Provider Diagnosis [facility] [address] [place], [place] [phone] 01/14/2025 Eugene Iyer Jr Dysphagia R13.10 Assessments Encounter Date Diagnosis (ICD Code) Assessment Notes Treatment Notes Treatment Clinical Notes Section Notes 01/14/2025 Dysphagia (ICD-10 - R13.10) Plan Of Treatment Next Appt Details Provider Name:Eugene domingo Jr, 04/13/2025 10:40:00 AM, [address] [place] [address], [address], [place], [address], Progress Notes * KOFI STANLEYDOB:1945 (79 yo M)Acc No.[id number]:01/14/2025 EGD/MAC Patient:?KOFI STANLEY Provider:?Eugene Iyer MD :1945???Age:79 Y???Sex:Male Kirby e:01/14/2025 Address:[place] Pcp:Vandana Camargo NP Subjective: * Chief Complaints: * ???1. Dysphagia. * Medical History:? Objective: * Vitals:? Assessment: * Assessment: 1.?Dysphagia - R13.10 (Prima ry)??? Plan: * Treatment: * Procedure Codes:?65687 UPPER GI ENDOSCOPY, BIOPSY, 09077 ESOPH ENDOSCOPY, DILATION, Modifiers: 59 * * The named appointment provid er may or may not be the originator of this progress note, and it is not deemed complete until electronically signed by the appointment provider. Sign off status: Pending * Provider:?Eugene Iyer MD Date:?0 01/14/2025 Generated for Rona leung/Hesham/Petersonitting on:?01/26/2025 07:47 AM EDT
--- OUTSIDE RECORDS SUMMARY | 2025-01-26 07:48 | XMS_ITS | Patient Health Record ---
Author Organization [facility] Address [address] [place] [address] Care Team Providers Care Air Pollution Specialist Name Role Phone Raman WARE, Vandana Primary [...] sertraline Sertraline Unknown Drug Allergy Activ e Results Component Value Reference Range Notes Pathology Reviewed date:01/22/2025 03:35:39 PM Interpretation: Performing Lab:[facility], [address] [place] [phone] Notes/Report: Name: Caleb Stanley Age/Sex: 79/M : 1945 Unit#: [id number] Attend Dr: Eugene Iyer MD Re01/14/25 Status : [facility] Location: [facility] Disch: SPEC : [id number] RECD : 01/14/25 STATUS: SARITA MEEK NUM: [id number] DEION: 01/14/[address] [facility] [address]: Eugene Iyer MD ENTERED: 01/14/25 34 SP TYPE: Surgical OTHR DR: Adalberto Zepeda PA ORDERED: HE Stain/6, Gross Micro L4/2, IHC, Special st. 2/2, H. pylori, AB/PAS/2 Diagnosis A. Stomach, antrum, biopsy: Gastric antral mucosa with mild reactive gastropathy; negative for Helicob acter pylori, intestinal metaplasia and dysplasia. B. Esophagus, distal , biopsy: Active erosive esophagitis with ulceration and reactive epithelial changes; negative for fungal organisms, intestinal metaplasia and dysplasia. Clinical History Pre-Op Dx: Dysphagia Post-Op Dx: Esophagitis Microscopic Description A-B. Microscopic sec tions examined. No metaplastic changes are seen, supported by AB/PAS stains (A-B); no Hel icobacter organisms are seen, supported by H. pylori immunostain (A). Material Received A. Antral bx's B. Distal esophagus bx's Gross Description Received in 2 parts. A. Received in forma salma labeled ?antral biopsies? are 2 fragments of grove-white soft tissue measuring 0.1 and 0. 4 cm in greatest dimension which are wrapped in lens paper and entirely submitted for micros copic examination, 2 pieces in cassette A. B. Received in forma salma labeled ?distal esophagus biopsies? are 3 fragments of translucent, white soft tissue me asuring 0.1-0.3 cm in greatest dimension which are wrapped in lens paper and entirely submitt ed for microscopic examination, 3 pieces in cassette B. ([facility]) Special stains order ed and performed: A/B PAS on A-B; immunostain for H pylori on A. Copies To: Eugene Iyer MD [facility] [address] [place] [address] [address] [place] [address], [place] [address] CONTINUED ON NEXT PAGE Name: Caleb Stanley Age/Sex: 79/M : 1945 Unit#: [id number] Attend Dr: Eugene Iyer MD Re01/14/25 Statu s: [facility] Location: [facility] Disch: SPEC : [id number] RECD : 01/14/25-1015 STATUS: SARITA MEEK NUM: [id number] DEION: 01/14/25-[address] [facility] [address]: Eugene Iyer MD ENTERED: 01/14/25- 34 SP TYPE: Surgical OTHR DR: Adalberto Zepeda ORDERED: HE Stain/6, Gross Micro L4/2, IHC, Special st. 2/2, H. pylori, AB/PAS/2 Copies To: (Continued) Adalberto Zepeda [address] [place] [address] Signed (si gnature on file) Rosa Marquis MD 01/17/25 1545 END OF REPORT Reason For Referral Referring Provider First Name Vandana Referring Provider Last Name Raman Referred Organization [facility] Referred Provider Eugene Iyer Jr Referred Address [address] [place] [address],[place], [place],[address], Referred Provider Specialty Gastroentero logy Referral Priority [...] HCl 0.4 MG Oral for 90 Active Omeprazole 40 MG 1 capsule 1/2 to 1 hour before morning meal Orally Once a day for 30 days 01/22/2025 Active Mupirocin 2 % 1 application Externally [...] Problem Status W/U Status Risk Notes Problem 956511192 Long-term use of aspirin therapy (Z79.82) Active confirmed Problem 16491705 Dysphagia, unspecified type (R13.10) Active confirmed Problem 161374764 Gastroesophageal reflux disease, unspecified whether esophagitis present (K21.9) Active confirmed Vital Signs Temperature 97.7 degrees Fahrenheit 12/01/2024 Blood pressure diastolic 01 mm Hg 12/01/2024 Height 70 in 12/01/2024 Blood pressure systolic 001 mm Hg 12/01/2024 Weight 148 lbs 12/01/2024 BMI 21.23 kg/m2 12/01/2024 Encounters Encounter Location Date Provider Diagnosis [facility] [address] [place] [id number] 01/14/2025 Eugene Iyer Jr Dysphagia R13.10 [facility] [address] [place] [phone] 12/01/2024 Eugene Iyer Jr Dysphagia, unspecified type R13.10 ; Long-term use of aspirin therapy Z79.82 and Gastroesophageal reflux disease, unspecified whether esophagitis present K21.9 [facility] [address] [place] [phone] 01/14/2025 Eugene Iyer Jr [facility] [address] [place] [phone] 01/22/2025 Eugene Iyer Jr Assessments Encounter Date Diagnosis (ICD Code) Assessment Notes Treatment Notes Treatment Clinical Notes Section Notes 01/14/2025 Dysphagia (ICD-10 - R13.10) 12/01/2024 Long-term use of aspirin therapy (ICD-10 [...] GI ENDOSCOPY 12/01/2024 Next Appt Details Provider Name:Eugenenadine domingo , 04/13/2025 10:40:00 AM, [address] [place] [address], [facility], [place], [address], Insurance Providers Payer Name Payer Address Payer Phone Subscriber Number Group Number Insured Name Patient Relationship to Insured Coverage Start Date Coverage End Date [facility] [employer] [address] [place] [phone] [id number] CALEB STANLEY Self - patient is the insured Medical (General) History Medical History History ICD Code hypertension Cardiomyopathy/bradycardia/ASCVD PTSD/anxiety/depression Hypertension Hyperlipidemia Parkinson's disease Hyperlipidemia Rheumatoid/osteoarthritis Chronic kidney disease Surgical History Surgery Date(Month/Year) Tonsillectomy colonoscopy 2019, [place] Lithotripsy for nephrolithiasis
--- OUTSIDE RECORDS SUMMARY | 2025-01-26 07:48 | XMS_ITS | Clinical Summary ---
Author Organization [facility] Address [address] [place] [address] Care Team Providers Care Cone Machine Feeder Name Role Phone Adalberto Zepeda PA-C Primary [...] age to complete this topic Care Teams Cone Machine Feeder Relationship Specialty Start Date End Date Adalberto Zepeda, [facility] PCP - General Medical Services 08/15/21
[2025-01-26 10:45] LABS: MANUAL DIFF FLAG NO
[2025-01-26 11:00] LABS: Basophils Percent Auto 0.4 % (0-2); Eosinophils Absolute Auto 0.1 X10*3/uL (0.0-0.4); Eosinophils Percent Auto 1.7 % (0-4); Hematocrit 34.9 % (42.0-52.0); Hemoglobin 11.9 g/dl (14.0-18.0); Imm Gran Abs Auto 0.04 X10*3/uL (0.00-0.03); Imm Gran Pct Auto 0.5 % (0.0-0.4); Lymphocytes Absolute Auto 1.3 X10*3/uL (1.2-4.9); Lymphocytes Percent Auto 16.7 % (20-40); Mean Corpuscular HGB Conc 34.1 g/dl (31.0-36.0); Mean Corpuscular Hemoglobin 34.9 pg (27.0-33.0); Mean Corpuscular Volume 102.3 fL (80.0-98.0); Mean Platelet Volume 10.1 fL (9.4-12.4); Monocytes Absolute Auto 0.6 X10*3/uL (0.1-1.2); Monocytes Percent Auto 7.9 % (2-11); Neutrophils Absolute Auto 5.5 x10*3/uL (2.0-8.3); Neutrophils Percent Auto 72.8 % (45-73); Platelet Count 158 X10*3/uL (160-400); Red Blood Count 3.41 X10*6/uL (4.60-5.80); Red Cell Distribution Width 13.2 % (11.0-16.0); White Blood Count 7.5 X10*3/uL (4.8-10.8)
[2025-01-26 11:33] LABS: Alanine Aminotransferase 37 U/L (0-40); Albumin Level 4.1 g/dL (3.5-5.0); Alkaline Phosphatase 68 U/L (39-117); Anion Gap 8 (12-20); Aspartate Amino Transferase 34 U/L (5-37); Bilirubin Total 1.1 mg/dL (0.0-1.0); Blood Urea Nitrogen 21 mg/dL (9-16); C Reactive Protein < 0.10 mg/dL (< or = 0.50); Carbon Dioxide 28 mmol/L (22-29); Chloride 111 mmol/L (96-108); Estimated Glomerular Filt Rate 60; Glucose Random 109 mg/dL (60-115); Iron 157 mcg/dL (45-160); Percent Iron Saturation 55 % (15-50); Potassium 4.1 mmol/L (3.3-5.1); Sodium 143 mmol/L (135-145); Total Iron Binding Capacity 284 mcg/dL (228-428); Total Protein 6.4 g/dL (6.5-8.0); Unsaturated Iron Binding 127 ug/dL
[2025-01-26 11:52] LABS: Ferritin 42 ng/mL (20-250)
[2025-01-26 12:00] LABS: Vitamin B12 466 pg/mL (200-900)
[2025-01-26 12:13] LABS: Erythrocyte Sedimentation Rate 20 MM/HR (0-15)
[2025-01-28 05:44] LABS: Transferrin 250 mg/dL (188-341)
== END 2025-01-26 07:44 | disposition home or self-care (01) ==
LOC: HO.HMGCLDS 07:43
PROVIDERS: PCP Physician Assistant Medical; Visit Provider Student in an Organized Health Care Education/Training Program
DX: M06.041 Rheumatoid arthritis without rheumatoid factor, right hand (principal); M06.042 Rheumatoid arthritis without rheumatoid factor, left hand; D64.9 Anemia, unspecified; Z79.899 Other long term (current) drug therapy
CPT/HCPCS: 36415; 80053; 82607; 82728; 82746; 83540; 84466; 85025; 85652; 86140

== ENCOUNTER 2025-02-02 07:38 | Outpatient (AMB) | payer BC, SELFPAY ==
--- OUTSIDE RECORDS SUMMARY | 2025-02-02 07:41 | XMS_ITS | Clinical Summary ---
Author Organization [facility] Address [address] [place] [address] Phone Care Team Providers Care Supervisor Belt And Link Assembly Name Role Phone Adalberto Zepeda Primary Care Provider [phone] Allergies Active Allergy Reactions Criticality Noted Date [...] lower leg limited to breakdown of skin ([facility] V24, [facility] V28) 08/25/2024 Essential (primary) hypertension 08/25/2024 Wound infection 08/25/2024 Painful skin lesion 08/15/2021 Parkinson's disease ([facility] V24, [facility] V28) 1 11/28/2018 Essential tremor 08/16/2019 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 Benign prostatic hyperplasia without lower urinary tract symptoms 12/24/2017 Bradycardia 12/24/2017 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 12/24/2017 Weight loss 12/24/2017 Renal cyst 03/24/2012 Overview (07/14/2024): thomas 01/28 f/up in 1 year advised Encounters Date Type Department Care Team Description 12/27/2024 12:30 PM EDT Office Visit Adult Medicine [address] [phone] Adalberto Zepeda PA Tear of left biceps muscle, initial encounter (Primary Dx); Benign prostatic hyperplasia without lower urinary tract symptoms; Bradycardia; Essential tremor; Parkinson's disease without dyskinesia, unspecified whether manifestations fluctuate (CMS/HCC V24, CMS/HCC V28); Essential (primary) hypertension; Chronic venous hypertension (idiopathic) [...] 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 For example, child psychometrist or elderly care for an older adult? [...] Description 05/24/2025 9:30 AM EDT Office Visit [facility] Hematology Oncology [address] [place] [phone] Katja Lainez MD [address] [place] [phone] 07/04/2025 10:30 AM EDT Office Visit Adult Medicine [facility] [address] [place] [address] Adalberto Zepeda PA [address] [place] [address] Health Maintenance Due Date Last Done Comments [...] Documents on File Type Date Recorded Patient Rag Boiler Expl anation Health Care Decision (hx) 01/07/2018 AD UP DIRECTIVE Health Care Decision (hx) 01/07/2018 AD UP DIRECTIVE Care Teams Supervisor Belt And Link Assembly Relationship Specialty Start Date End Date Adalberto Zepeda PA [address] [place] [address] PCP - General Internal Medicine 08/18/24
--- OUTSIDE RECORDS SUMMARY | 2025-02-02 07:41 | XMS_ITS | Data Portability ---
Author Organization [place] [facility] Steph Meyer AONE Emmet Address [address] [facility] [address] [place] [address] Care Team Providers Care Profiler Hand Name Role Phone JENNIFER ESPOSITO Referring Provider [...] available 10/21/2024 09:07:28 11/23/2024 11/23/2024 IMPRESSION: 79-year-old nftnq-nogs-eduvmu nt man with left shoulder glenohumeral arthritis [...] Time Details Appointments FOLLOW UP 2024 08:45A cL Salazar MD Not available Not available Not available Lab None recorde d. Referral None recorde d. Procedures None recorde d. Surgeries None recorde d. Imaging XR, shoulde r, 2 or more view 2023 024 [facility], [address], [place], [address], 05/13/2024 15:34:12 XR, wrist, 3 or more view 2023 024 [facility], [address], [place], [address], 04/01/2024 13:06:37 Medication Orders lidocai ne (PF) 10 mg/mL (1 %) injecti on solutio n 2024 025 [email or web address] Not available 11/23/2024 15:38:24 Marcain e (PF) 0.5 % (5 mg/mL) injecti on solutio n 2024 025 [email or web address] Not available 11/23/2024 15:38:24 triamci nolone acetoni de 40 mg/mL suspens ion for injecti on 2024 025 [email or web address] Not available 11/23/2024 15:38:24 lidocai ne (PF) 10 mg/mL (1 %) injecti on solutio n [address] #0693, [address] [place], [address], 10/21/2024 13:13:53 triamci nolone acetoni de 40 mg/mL suspens ion for injecti on [address]acy #0693, [address] [place], [address], 10/21/2024 13:13:53 diclofe nac 1 % topical gel 2024 025 [facility]/Pharmacy #0693, [address] [place], [address], 10/21/2024 09:08:00 lidocai ne (PF) 10 mg/mL (1 %) injecti on solut n [address]Pharmacy #0693, [address] [place], [address], 08/12/2024 08:54:35 triamci nolone acetoni de 40 mg/mL suspens ion for injecti on 2023 024 [email or web address] Not available 08/12/2024 09:02:17 lidocai ne (PF) 10 mg/mL (1 %) injecti on solutio n [address] #0693, [address] [place], [address], 08/12/2024 08:54:35 triamci nolone acetoni de 40 mg/mL suspens ion for injecti on [email or web address]/Pharmacy #0693, [address] [facility] [place], [address], 08/12/2024 08:54:35 lidocai ne (PF) 10 mg/mL (1 %) injecti on solutio n 2023 [facility] [address] [facility] [place], [address], 05/13/2024 15:34:12 triamci nolone acetoni de 40 mg/mL suspens ion for injecti on [email or web address]/Pharmacy #0693, [address] [facility] [place], [address], 08/12/2024 08:32:28 lidocai ne (PF) 10 mg/mL (1 %) injecti on solutio n 2023 024 [facility]/Pharmacy #0693, [address] [place], [address], 04/01/2024 13:06:37 triamci nolone acetoni de 40 mg/mL suspens ion for injecti on [email or web address]/Pharmacy #0693, [address] [place], [address], 08/12/2024 08:32:28 Patient TargetsNo targets recorded. Patient Instructions Encounter Date Encounter Id Patient Instructions Last Modified By Organization Details Last Modified Time 04/01/2024 [id number] You have been provided with a cortisone [...] and subluxation. Not available 04/01/2024 11:48:44 05/13/2024 [id number] You have been provided with a cortisone [...] findings noted. Not available 05/13/2024 11:54:26 08/12/2024 [id number] You have been provided with a cortisone [...] portal TAMIE. Not available 08/12/2024 09:33:27 10/21/2024 [id number] You have been provided with a cortisone [...] Closed fracture of distal end of radius 13865511 Active 2023 Leidy frost MD [address], [place], [address], [place] [facility] P 4 13:08:08 Osteoarthro sis of the carpometaca rpal joint of the thumb 47596360 Active 2023 Leidy frost MD [address], [place], [address], [place] [facility], [facility] 4 13:08:36 Arthritis of left glenohumera l joint 5337343580354 100 Active 2023 Leidy frost MD [address], [place], [address], [place] [facility], P 4 11:54:47 Triggering of digit 297168972 Active 2023 Leidy frost MD [address], [place], [address], [place] [facility], [facility] 4 11:56:43 Arthritis of first carpometaca rpal joint of right hand 5012838455724 100 Active 2024 Leidy frost MD [address], [place], [address], [place] [facility], [facility] 5 09:05:52 Osteoarthri tis of finger joint of right hand 4985183194892 9104 Active 2024 Leidy frost MD [address], [place], [address], [place] [facility], P 5 09:07:37 Problem Notes None recorded. Procedures Surgical History Date Name Laterality Status Provider Name and Address Organization Details Recorded Time 11/23/19 25 AJR Shoulder GH Inj completed Edwardo Salazar MD [address], [place], [address], [place] [facility] 11/23/2024 09:36:38 10/21/19 25 LES finger joint injection completed Leidy Langford MD [address] [facility], [place], [address], [place] [facility] 10/21/2024 09:05:14 08/12/20 24 LES finger joint injection completed Leidy Langford MD [address], [place], [address], [place] [facility] 08/12/2024 09:33:13 08/12/20 24 LES Subacromial Shoulder Inj completed Leidy Langford MD [address], [place], [address], [place] [facility] 08/12/2024 09:32:56 05/13/20 24 LES Subacromial Shoulder Inj completed Leidy Langford MD [address], [place], [address], [place] [facility] 05/13/2024 11:53:24 04/01/20 24 LES trigger finger/De Quervain's injection completed Leidy Langford MD [address] [facility],[address], [place], [address], [place] [facility] 04/01/2024 11:47:54 02/26/20 24 LES finger joint injection completed Leidy Langford MD [address] [facility],[address], [place], [address], [place] [facility] 02/26/2024 13:10:34 Imaging Results None recorded. Procedure Notes None recorded. Medical Equipment None Reported. Allergies Allergen ID Allergen Name Allergen Category Reaction Reaction Severity Criticality Documentation Date Start Date Code Code System Note Provider Name and Address Organization Details Recorded Time 40681 acetamino phen / oxycodone medicatio n Not available Not available Not available 02/26/2024 20623 3 RxKostas Duggan null, [place] [facility] P 4 09:31:06 93992 oxycodone medicatio n Not available Not available Not available 02/26/2024 7804 Eloisa Duggan null, [place] [facility], P 4 09:31:25 27099 amoxicill in medicatio n Not available Not available Not available 02/26/2024 723 Eloisa Duggan null, [place] [facility] 4 09:31:33 96379 erythromy leisa medicatio n Not available Not available Not available 02/26/2024 4053 Eloisa Duggan null, [place] [facility], P 4 09:31:43 35324 minocycli ne medicatio n Not available Not available Not available 04/01/2024 6980 Eloisa Duggan null, [place] [facility] 4 11:19:40 00220 sertralin e medicatio n Not available Not available Not available 04/01/2024 60152 Eloisa Duggan null, [place] [facility] 4 11:19:48 Medications Name Sig Start [...] Available Not Available Not Available [email or web address] @ [facility] 08/12 completed Not Available Not Available [...] Updated DateTime 08/12/2024 177.8 cm 22 kg/m2 41720.[address] [place] [facility], 08/12/2024 08:33:47 Date Recorded Body height Body mass index (BMI) Body weight Provider Name and Address Organization Details Last Updated DateTime 10/21/2024 177.8 cm 22 kg/m2 31413.[address] [place] [facility] 10/21/2024 08:55:09 Social History Question Answer Notes LastModified by Organizat ion Details LastModified Time Tobacco Smoking Status Never Smoker Cassidy Duggan null, [place] [facility] 02/26/2024 10:27:52 What Is Your Level Of Alcohol Consumption? None [email or web address] Information not available 02/26/2024 Do You Use Any Illicit Or Recreational Drugs? No Information not available 02/26/2024 Do You Or Have You Ever Used Any Other Forms Of Tobacco Or Nicotine? No [email or web address] Information not available 02/26/2024 Sex: Unknown Functional Status None recorded. Mental Status None recorded. Family History Nothing Reported. Medical History Condition Response Coronary Artery Disease N Gout Y Hyperthyroidism N MRSA N Blood Transfusion N Emphysema N COPD N Depression Y Hypothyroidism N Pacemaker N Vascular Disease N Gastrointestinal Disease N Anxiety Disorder Y Autoimmune disease N Arthritis Y Cancer Y Stroke N High Cholesterol Y Neurologic Disorder Y Liver Disease N Organ Transplant N Arrhythmia N Rheumatoid Arthritis Y Fibromyalgia N Kidney Disease N Allergies/Hayfever Y Adverse Reaction to Anesthesia N Thyroid Problems N Anemia N Brain Injury N Heart Attack (OR) N Osteopenia N Diabetes N Bleeding Disorder N Seizures/Epilepsy N AIDS/HIV N Congestive Heart Failure (CHF) N Asthma N Amputation N Reflux/GERD Y Sleep Apnea N Hepatitis N Aneurysm N Heart Disease N Pulmonary Embolism N Hypertension Y Osteoporosis Y Past Encounters Encounter ID Performer Location Encounter Start Date Encounter Closed Date Diagnosis/Indication Diagnosis SNOMED-CT Code Diagnosis ICD10 Code Diagnosis Note [id number] MD BLANCO [facility] [address] [address] 02/26/2024 09:18:47 02/26/2024 10:20:59 Pain of left wrist 6964827633 43763 M25.532 Additional diagnosis detail: Left wrist pain Closed fra cture of distal end of radius 83535124 S52.572A Additional diagnosis detail: Other closed intra-venkata cular fracture of distal end of left radius, initial encounter Osteoarthr osis of the carpometacarpal joint of the thumb 95613422 M18.12 Additional diagnosis detail: Primary osteoarthr itis of first carpometac arpal joint of left hand [id number] MD BLANCO [facility] [address] [address] 04/01/2024 11:09:01 04/01/2024 11:44:29 Closed fracture of distal end of radius 22647880 S52.572A Additional diagnosis detail: Other closed intra-venkata cular fracture of distal end of left radius, initial encounter Osteoarthr osis of the carpometacarpal joint of the thumb 76621766 M18.12 Additional diagnosis detail: Primary osteoarthr itis of first carpometac arpal joint of left hand Triggering of digit 2399 93078 M65.332 Additional diagnosis detail: Trigger middle finger of left hand, trigger ring finger of left hand [id number] MD BLANCO [facility] 299 [facility] [address] [place] [address] 05/13/2024 10:26:20 05/13/2024 11:10:39 Closed fracture of distal end of radius 62144240 S52.572A Additional diagnosis detail: Other closed intra-venkata cular fracture of distal end of left radius, initial encounter Osteoarthr osis of the carpometacarpal joint of the thumb 66818847 M18.12 Additional diagnosis detail: Primary osteoarthr itis of first carpometac arpal joint of left hand Chronic pa in of left upper limb 4669957446 1165602 M25.512 G89.29 Additional diagnosis detail: Chronic left shoulder pain Pain of le ft shoulder joint 8584197926 2502529 M25.512 Additional diagnosis detail: Pain, joint, shoulder, left Arthritis of left glenohumeral joint 0364656325 342007 M19.012 Triggering of digit 2399 60955 M65.342 M65.332 Additional diagnosis detail: Trigger finger, left ring fingerAddi tional diagnosis detail: Trigger finger, left middle finger [id number] MD BLANCO [facility] 299 [facility] [address] [place] [address] 08/12/2024 08:16:17 08/12/2024 08:54:36 Arthritis of left glenohumeral joint 3120403904 818891 M19.012 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 1997177331 599320 M18.12 [id number] [facility] [address] [facility] [address] [place] [address] 10/21/2024 08:09:50 10/21/2024 09:19:40 Osteoarthrosis of the carpometacarpal joint of the thumb 94576959 M18.12 Additional diagnosis detail: Primary osteoarthr itis of first carpometac arpal joint of left hand 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 0813340813 075558 M18.11 Osteoarthr itis of finger joint of right hand 7875046513 0934466 M15.1 [id number] MD [facility] 299 [facility] [address] [place] [address] 11/23/2024 08:34:37 11/23/2024 09:36:16 Arthritis of left glenohumeral joint 8675056149 188956 M19.012 Health Concerns Section Related Observation LastModified by Organization Detai ls LastModified Time None Recorded Concern Status LastModified by Organization Details LastModified Time None Recorded Advance Directives Directive None Recorded Payers Encounter Date Sequence Insurance Name Policy Number Policy Carrillo Covered Member ID Carrillo Member ID Guarantor Name 04/01/2024 1 [facility] (MEDICARE REPLACEMENT PPO) [id number] Caleb Martínez [id number] Caleb Martínez 05/13/2024 1 [place]IC[place] PPO) [id number] Caleb Mejiat [id number] Caleb Martínez 08/12/2024 1 [place] PPO) [id number] Caleb Mejiat [id number] Caleb Martínez 10/21/2024 1 [place] PPO) [id number] Caleb Crainaert [id number] Caleb Martínez 11/23/2024 1 [facility] ([place]IC[place]AC[place] PPO) [id number] Caleb Crainaert [id number] Caleb Martínez Notes Date Note Type [...] of years ago. Leidy Langford MD [address] [address], [place], [address], [place] [facility] 04/04/2024 21:14:10 05/13/2024 text/html He presents [...] and pain with activities. He has tried tlma-ion-jyfvgfe medications with have not helped his pain significantly. Leidy Langford MD [address] [facility] [address], [place], [address], [facility] - [facility] 05/13/2024 11:57:41 08/12/2024 text/html He returns [...] previously injected. Leidy Langford MD [address] [facility],[address] [address], [place], [address], [facility] - [facility] P 08/12/2024 09:36:08 10/21/2024 text/html He presents [...] helpful. He is on methotrexate per his kiln placer. He does have pain in his left shoulder for which I gave him a cortisone injection on 08/12/2024 for glenohumeral joint arthritis. Leidy Langford MD [address] [facility],[address] [address], [place], [address], [facility] [employer] [facility] 10/21/2024 09:51:15 11/23/2024 text/html 79-year-old iznru-lmml-mmusdmkd man with left shoulder pain for years. [...] going on at home he is primary churner for his Alzheimer's as well as his daughter who is in the hospital recovering from a kidney transplant. Edwardo Salazar MD [address] [facility] [address], [place], [address], [facility] - [facility] P 11/23/2024 09:41:56
--- OUTSIDE RECORDS SUMMARY | 2025-02-02 07:42 | XMS_ITS ---
Author Organization [facility] Address [address] [place] [address] [place] [address] Care Team Providers Care Quality Assurance Auditor Name Role Phone Raman WARE, Vandana Primary Care Provider Unavail Eugene Hoang Jr Unavailable REASON FOR VISIT dysphagia Encounters Encounter Location Date Provider Diagnosis [facility] [address] [place], [place] [phone] 01/14/2025 Eugene Iyer Jr Dysphagia R13.10 Assessments Encounter Date Diagnosis (ICD Code) Assessment Notes Treatment Notes Treatment Clinical Notes Section Notes 01/14/2025 Dysphagia (ICD-10 - R13.10) Plan Of Treatment Next Appt Details Provider Name:Eugene domingo Jr, 04/13/2025 10:40:00 AM, [address] [place] [address], [address], [place], [address], Progress Notes * KOFI STANLEYDOB:1945 (79 yo M)Acc No.[id number]:01/14/2025 EGD/MAC Patient:?KOFI STANLEY Provider:?Eugene Iyer MD :1945???Age:79 Y???Sex:Male Kirby e:01/14/2025 Address:[place] Pcp:Vandana Camargo NP Subjective: * Chief Complaints: * ???1. Dysphagia. * Medical History:? Objective: * Vitals:? Assessment: * Assessment: 1.?Dysphagia - R13.10 (Prima ry)??? Plan: * Treatment: * Procedure Codes:?24796 UPPER GI ENDOSCOPY, BIOPSY, 46184 ESOPH ENDOSCOPY, DILATION, Modifiers: 59 * * The named appointment provid er may or may not be the originator of this progress note, and it is not deemed complete until electronically signed by the appointment provider. Sign off status: Pending * Provider:?Eugene Iyer MD Date:?0 01/14/2025 Generated for Rona leung/Hesham/Petersonitting on:?02/02/2025 07:41 AM EDT
--- OUTSIDE RECORDS SUMMARY | 2025-02-02 07:42 | XMS_ITS | Patient Health Record ---
Author Organization [facility] Address [address] [place] [address] Care Team Providers Care Benefits Assistant Name Role Phone Raman WARE, Vandana Primary Care Provider Unavail able Eugene Iyer Jr Unavailable [phone] Allergies Allergen (clinical drug ingredient) Drug/Non Drug [...] Pathology Reviewed date:01/22/2025 03:35:39 PM Interpretation: Performing Lab:[facility], [address] [place] [address] Notes/Report: Name: Caleb Stanley Age/Sex: 79/M : 1945 Unit#: [id number] Attend Dr: Eugene Iyer MD Re01/14/25 Status : [facility] Location: [facility] Disch: SPEC : [id number] RECD : 01/14/25 STATUS: SARITA MEEK NUM: [id number] DEION: 01/14/[address] [facility] [address]: Eugene Iyer MD ENTERED: 01/14/25 [...] microscopic examination, 3 pieces in cassette B. ([facility]) Special stains order ed and performed: A/B PAS on A-B; immunostain for H pylori on A. Copies To: Eugene Iyer MD [facility] [address] [place] [address] [address] [place] [address], [place] [address] CONTINUED ON NEXT PAGE Name: Caleb Stanley Age/Sex: 79/M : 1945 Unit#: [id number] Attend Dr: Eugene Iyer MD Re01/14/25 Statu s: [facility] Location: [facility] Disch: SPEC : [id number] RECD : 01/14/25-1015 STATUS: SARITA MEEK NUM: [id number] DEION: 01/14/25-[address] [facility] [address]: Eugene Iyer MD ENTERED: 01/14/25- 34 SP TYPE: Surgical OTHR DR: Adalberto Zepeda ORDERED: HE Stain/6, Gross Micro L4/2, IHC, Special st. 2/2, H. pylori, AB/PAS/2 Copies To: (Continued) Adalberto Zepeda [address] [place] [address] Signed (si gnature on file) Rosa Marquis MD 01/17/25 1545 END OF REPORT Reason For Referral Referring Provider First Name Vandana Referring Provider Last Name Raman Referred Organization [facility] Referred Provider Eugene Iyer Jr Referred Address [address] [place] [address],[place],[address], Referred Provider Specialty Gastroentero logy Referral Priority [...] Problem Status W/U Status Risk Notes Problem 030678363 Long-term use of aspirin therapy (Z79.82) Active confirmed Problem 16076352 Dysphagia, unspecified type (R13.10) Active confirmed Problem 946690993 Gastroesophageal reflux disease, unspecified whether esophagitis present (K21.9) Active confirmed Vital Signs Temperature 97.7 degrees Fahrenheit 12/01/2024 Blood pressure diastolic 01 mm Hg 12/01/2024 Height 70 in 12/01/2024 Blood pressure systolic 001 mm Hg 12/01/2024 Weight 148 lbs 12/01/2024 BMI 21.23 kg/m2 12/01/2024 Encounters Encounter Location Date Provider Diagnosis [facility] Out[facility] [address] [place] [id number] 01/14/2025 Eugene Iyer Jr Dysphagia R13.10 [facility] [address] [place] [address] 12/01/2024 Eugene Iyer Jr Dysphagia, unspecified type R13.10 ; Long-term use of aspirin therapy Z79.82 and Gastroesophageal reflux disease, unspecified whether esophagitis present K21.9 [facility] [address] [place] [address] 01/14/2025 Eugene Iyer Jr [facility] [address] [place] [address] 01/22/2025 Eugene Iyer Jr Assessments Encounter Date [...] Provider Name:Eugenenadine domingo , 04/13/2025 10:40:00 AM, [address] [place] [address], [facility], [place], [address], Insurance Providers Payer Name Payer Address Payer Phone Subscriber Number Group Number Insured Name Patient Relationship to Insured Coverage Start Date Coverage End Date [facility] [address] [place] [phone] [id number] CALEB STANLEY Self - patient is the insured Medical (General) History Medical History History ICD Code hypertension Cardiomyopathy/bradycardia/ASCVD PTSD/anxiety/depression Hypertension Hyperlipidemia Parkinson's disease Hyperlipidemia Rheumatoid/osteoarthritis Chronic kidney disease Surgical History Surgery Date(Month/Year) Tonsillectomy colonoscopy 2019, [place] Lithotripsy for nephrolithiasis
--- OUTSIDE RECORDS SUMMARY | 2025-02-02 07:42 | XMS_ITS ---
Author Organization [facility] Address [address] [place] [address] [address] [place] [address] Care Team Providers Care Software Test Manager Name Role Phone Raman WARE, Vandana Primary Care Provider Unavail autumn Iyer Jr, Eugene Brown REASON FOR VISIT pathology Medications Medication SIG (Take, Route, Fr equency, Duration) Notes Start Date End Date Status Omeprazole 40 MG 1 capsule 1/2 to 1 h our before morning meal Orally Once a day for 30 days 01/22/2025 Active Encounters Encounter Location Date Provider Diagnosis [facility] [address] [place] [address] 01/22/2025 Eugene Iyer Jr Plan Of Treatment Medication Medication Name Sig Start Date Stop Date Notes Omeprazole 40 MG 1 capsule 1/2 to 1 h our before morning meal Orally Once a day for 30 days 01/22/2025 Next Appt Details Provider Name:Eugene domingo Jr, 04/13/2025 10:40:00 AM, [address] [place] [address], [address], [place], [address], Progress Notes * KOFI STANLEYDOB:1945 (79 yo M)Acc No.[id number]:01/22/2025 Patient:?KOFI STANLEY :1945???Age:79 Y???Sex:Male Address:[place], [address] * Refills? Start Omeprazole Capsule Delayed Release, 40 MG, Orally, 30, 1 capsule 1/2 to 1 hour before morning meal, Once a day, 30 days, Refills=11 * true * Date:? Generated for Rona leung/Hesham/Petersonitting on:?02/02/2025 07:42 AM EDT
--- OUTSIDE RECORDS SUMMARY | 2025-02-02 07:42 | XMS_ITS ---
Author Organization [facility] Address [address] [place] [address] Care Team Providers Care Project Development Coordinator Name Role Phone Raman WARE, Vandana Primary Care Provider Unavail autumn Iyer Jr, Eugene Unavailable REASON FOR VISIT schedule appt 2 months Encounters Encounter Location Date Provider Diagnosis [facility] [address] [place] [address] 01/14/2025 Eugene Iyer Jr Plan Of Treatment Next Appt Details Provider Name:Eugene domingo Jr, 04/13/2025 10:40:00 AM, [address], [address], [place], [address], Progress Notes * KOFI STANLEYDOB:1945 (79 yo M)Acc No.[id number]:01/14/2025 Patient:?KOFI STANLEY :1945???Age:79 Y???Sex:Male Address:[place] [address] * true * Date:? Generated for Printi ng/Fakatlyng/eTransmitting on:?02/02/2025 07:41 AM EDT
--- OUTSIDE RECORDS SUMMARY | 2025-02-02 07:42 | XMS_ITS | Clinical Summary ---
Author Organization [facility] Address [address] [place] [address] Care Team Providers Care Skein Winder Name Role Phone Adalberto Zepeda PA-C Primary [...] age to complete this topic Care Teams Skein Winder Relationship Specialty Start Date End Date Adalberto Zepeda, [facility] PCP - General Medical Services 08/15/21
--- NOTE | 2025-02-02 07:57 | A.OFFVIS_ITS ---
Vital Signs 02/02/25 08:06 Height 5 ft 8 in Weight 157 lb 6.561 oz BMI 23.9 BP 120/60 Blood Pressure Location Lt brachial Position Sitting Respiration 18 Pulse 59 Pulse Source Pulse Oximeter Pulse Oximetry (%) 98 Oxygen Delivery Method Room Air Intake Visit Reasons: RA Intake Note: Patient present today for RA follow up. Allergies sertraline Allergy (Intermediate, Verified 02/02/25 08:02) nausea,dizziness acetaminophen [From Percocet] Allergy (Unknown, Verified 02/02/25 08:02) unknown amoxicillin Allergy (Unknown, Verified 02/02/25 08:02) unknown erythromycin base Allergy (Unknown, Verified 02/02/25 08:02) unknown minocycline Allergy (Unknown, Verified 02/02/25 08:02) unknown oxycodone [From Percocet] Allergy (Unknown, Verified 02/02/25 08:02) unknown polymyxinb tmp Allergy (Intermediate, Uncoded 01/13/25 09:36) swelling, rash Medication List - Last Reconciled 02/02/25 by Guillermina Wise MD alendronate 70 mg PO QWEEK amlodipine 10 mg PO DAILY ammonium lactate 12% 1 appl topical DAILY aspirin 81 mg PO DAILY atorvastatin 40 mg PO DAILY bupropion HCl 200 mg PO DAILY carbidopa-levodopa 25-100 mg 1.5 tabs at 7am,1pm,7pm , 1 tab at 10am,4pm,10pm orally 6 X A DAY; diclofenac sodium 1% 4 grams topical QID doxycycline hyclate 100 mg PO BID entacapone 200 mg PO .6 x a day with carbi leucovorin calcium 20 mg (2 x 10 mg) PO QWEEK lisinopril 40 mg PO DAILY methotrexate sodium 10 mg (4 x 2.5 mg) PO QWEEK metronidazole 0.75% 1 appl topical DAILY omeprazole 20 mg PO DAILY paroxetine HCl (Paxil) 10 mg PO DAILY prednisone 10 mg PO DIRECTED quetiapine 100 mg PO BEDTIME ropinirole 2 mg PO BID tamsulosin 0.4 mg PO BEDTIME HPI Comments Details: Patient is an 79-year-old male with hypertension complicated by CKD stage 3, hyperlipidemia complicated by CAD, Parkinson's disease, nonrheumatic aortic stenosis, osteoarthritis of bilateral hands and sero positive rheumatoid arthritis here today for follow up Interval History: Patient last seen 10/04/[address] Enamorado. At that time he was complaining of worsening home situation with who has worsening dementia and he had 2 falls without any sequelae. His methotrexate was decreased due to persistent anemia. Today patient reports since decreasing the methotrexate he has noticed aches stiffness in all of his joints. Rheumatologic History: Rheumatoid arthritis RF - CCP + dx 2017 (low titer +CCP negative on repeat) Methotrexate started 2018 reduced from 15 to 12.5 mg 12/12 due to cytopenias & CKD HCQ added 01/2024 DC 05/2024 ineffective Initial history: This is a 76-year-old male with a complex past medical history including rheumatoid arthritis RF negative, CCP is positive used to see Dr. Mishra who presents for evaluation of rheumatoid arthritis. The condition was diagnosed in 2017 and since then he has been on methotrexate 6 tabs weekly plus folic acid with better control of his RA symptoms. He has not been on methotrexate since November of 2021 as he could not get a prescription. He continues to have pain in both thumbs as well as his fingers. He does not have any significant morning stiffness but he has difficultly with his hand bobbin drier almost all day. He receives bilateral thumb intra-articular steroid injections every 3 months which gave him about 1 month relief, last injection was 2 months ago. He denies any other joint pain or swelling. 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 For his footdrop he went to physical therapy and was prescribed a brace. The brace helps. But his footdrop has not improved. Osteoporosis DEXA shows a T-score-3.0 total left femur. Patient has been getting intra- articular steroid injections for his hand osteoarthritis almost every 3 months for years. This might be a contributing factor. Bilateral hand OA Gets bilateral 1st CMC intra-articular steroid injections by Orthopedics every 3 months. Current Rheumatology Medication(s): Methotrexate 10 mg weekly Leucovorin 10 mg weekly Alendronate 70 mg weekly [facility] Medical History (Updated 02/02/25 @ 08:25 by Guillermina Wsie MD) 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 Gout Footdrop BPH (benign prostatic hyperplasia) Hypertension Diverticulosis Thrombocytopenia Acid reflux Basal cell carcinoma Cholelithiasis Nephrolithiasis PTSD (post-traumatic stress disorder) Parkinsons Osteoarthritis of hands, bilateral Chronic sinus bradycardia Restless leg Dyslipidemia Surgical History S/P cardiac cath S/P trigger finger release Hx of endoscopy S/P TURP Hx of tonsillectomy Hx of lithotripsy Hx of colonoscopy Family History Mother Arthritis Social History Household Members: Spouse Housing: House Do you presently have visiting nurse or other home services: No Alcohol intake: never Patient Tobacco Use Status: Never used Tobacco e-Cigarette/Vaping Use: Never Used service: Yes Current occupational status: retired 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 Review of Systems Const Details: Review of Systems Constitutional: Denies fever, chills, weight loss ENT: Denies vision changes, eye pain or eye redness, dental caries, dry mouth GI: Denies nausea, vomiting, diarrhea, abdominal pain, change in BM Pulm: Denies SOB, [place], hemoptysis, wheezing Cards: Denies chest pain, palpitations Skin: Denies Raynaud's, rash, nail changes, photosensitivity, [employer]: Denies headaches, weakness, paresthesias, recurrent falls MSK: as per HPI All other systems reviewed and are unremarkable except noted above Physical Exam Vital Signs: Last Vital Signs Pulse 59 02/02/25 08:06 Resp 18 02/02/25 08:06 BP 120/60 02/02/25 08:06 Pulse Ox 98 02/02/25 08:06 Oxygen Delivery Method Room Air 02/02/25 08:06 BMI result Body Mass Index 23.9 Vital signs reviewed Physical Examination CONSTITUITIONAL Patient alert and cooperative. Elderly male sitting in chair and examined in chair HEENT Conjunctiva and sclera clear. ?Pupils equal round and reactive to light. ?No lymphadenopathy. ? CHEST/RESPIRATORY SYSTEM Normal respiratory effort and able to speak in complete sentences. ?Clear to auscultation bilaterally. ?No crackles, rales, rhonchi, wheezes heard. CARDIAC SYSTEM Regular rate and rhythm. Grade 3/6 systolic murmur heard. ?Radial pulses intact bilaterally MSK Hands: ?Able to make a fist. Tenderness to palpation of the MCPs and PIPs bilaterally. Positive 1st CMC grind test bilaterally. Agent [place] nodes. Wrists: ?Full range of motion bilateral wrists. Tenderness to palpation bilaterally Elbows: Full range of motion without pain. No tenderness, weakness, swelling, increased warmth or erythema. Shoulders: Full active range of motion bilaterally. Tenderness to palpation of the AC joint and glenohumeral joints bilaterally Knees: ?Full range of motion. ?No tenderness, swelling, increased warmth or erythema.? Bilateral crepitations Ankles: Full range of motion. ?No tenderness, swelling, increased warmth or erythema.? Feet: ?Positive squeeze test on the right, negative squeeze test on the left. Tender points:?No tenderness to palpation of the bilateral trapezius, supraspinatus, greater trochanters, anterior costochondral junctions, bilateral gluteal areas, bilateral suboccipital muscle insertions SKIN Skin intact without rashes. Results Reviewed Results Reviewed: Laboratory Tests 01/26/25 01/26/25 08:00 08:08 WBC 7.5 RBC 3.41 L Hgb 11.9 L Hct 34.9 L Plt Count 158 L ESR 20 H Sodium 143 Potassium 4.1 Chloride 111 H Carbon Dioxide 28 BUN 21 H Creatinine 1.17 AST 34 ALT 37 Alkaline Phosphatase 68 C-Reactive Protein < 0.10 Immunology labs 07/11/22 12:12 Rheumatoid Factor < 15.0 Cycl Citrul Peptide IgG <16 VAIBHAV Screen NEGATIVE Infectious serologies 08/12/23 10:40 Hepatitis A IgM Ab Nonreactive Hep Bs Antigen Negative Hep Bs Antibody NONREACTIVE Hep B Core Total Ab Nonreactive Hepatitis C Ab (EIA) Nonreactive TB Test (T-Spot) Com Negative DEXA 10/2024 FINDINGS: The bone mineral density of the lumbar spine is 1.186 with a T-score of -0.3, and a Z-score of 0.8. This represents a BMD change of -5.7% compared to the prior exam. This is statistically significant. The bone mineral density of the left total hip is 0.702 with a T-score of -2.8, and a Z-score of -1.4. This represents BMD change of 5.2% compared to the prior exam. This is statistically significant. The bone mineral density of the left femoral neck is 0.753 with a T-score of -2.4, and a Z-score of -0.7. This represents BMD change of 3.3% compared to the prior exam. Assessment & Plan Assessment & Plan (1) Rheumatoid arthritis involving both hands with negative rheumatoid factor: Comment: dx 2017 (low titer +CCP negative on repeat) Methotrexate started 2018 reduced from 15 to 12.5 mg 12/12 due to cytopenias & CKD HCQ added 01/2024 DC 05/2024 ineffective Code(s): M06.041 - Rheumatoid arthritis without rheumatoid factor, right hand; M06.042 - Rheumatoid arthritis without rheumatoid factor, left hand Category: Medical Plan: #Seronegative RA Patient is an 79-year-old male with seronegative rheumatoid arthritis here today for follow up. Currently on 10 mg of methotrexate and leucovorin due to anemia, his macrocytic anemia did not improve after decreasing the methotrexate and his RA has gotten worse with multiple tender joints on examination despite his inflammatory markers remaining normal. Discussed starting Enbrel with the patient and he is agreeable. We will start the prior authorization for Enbrel. He is to schedule a nursing visit prior to initiating the injection. Plan - Continue methotrexate 10mg weekly and leucovorin 10mg weekly - Start Enbrel 50mg SC weekly - RTC 4 months - Labs before visit: CBC, CMP, ESR, CRP, hepatitis panel, T spot (2) Osteoarthritis of hands, bilateral: Code(s): M19.041 - Primary osteoarthritis, right hand; M19.042 - Primary osteoarthritis, left hand Category: Medical Qualifiers: Osteoarthritis type: primary Qualified Code(s): M19.041 - Primary osteoarthritis, right hand; M19.042 - Primary osteoarthritis, left hand Plan: #Bilateral Hand OA Patient with bilateral hand OA particularly 1st CMC joint and PIPs. Continues to get injections every 3 months from Orthopedics. Recommend to continue topical diclofenac 4 times a day (3) Osteoporosis: Comment: DEXA 10/2024: AP Spine -0.3, Left femur neck -2.4, Left femur total -2.8 DEXA 09/2022: AP Spine -0.4, Left femur neck -2.6, Left femur total -3.0 Alendronate since 2021 Code(s): M81.0 - Age-related osteoporosis without current pathological fracture Category: Medical Qualifiers: Osteoporosis type: age-related Presence of current pathological fracture: without current pathological fracture Qualified Code(s): M81.0 - Age- related osteoporosis without current pathological fracture Plan: #Osteoporosis Patient with osteoporosis and repeat DEXA done October 2024 shows improvement in his bone density. We will continue with alendronate Plan - Continue alendronate 70mg weekly - Consider drug holiday in 2026 - Vitamin D at next blood draw (4) Pseudogout: Code(s): M11.20 - Other chondrocalcinosis, unspecified site Category: Medical Plan: #Non crystal proven pseudo gout Patient with non crystal proven pseudogout. No flares since the last visit. (5) Encounter for methotrexate monitoring: Code(s): Z51.81 - Encounter for therapeutic drug level monitoring; Z79.631 - terminal computer operator (current) use of antimetabolite agent Plan: #Long-term Current Use of Methotrexate Discussed with patient the benefits and risks of methotrexate for managing their rheumatic condition Benefits include reduced pain, reduced mortality, maintenance of remission and reduction of flares Risks include oral ulcers, photosensitivity, hepatotoxicity, hematologic toxicity, pneumonitis, flu-like symptoms (especially day after administration), nodulosis, lymphomas ? Limit alcohol and avoid Bactrim ? Monitoring: ?CBC, BMP, LFTs every 3-4 months and hepatitis serologies as needed (6) Encounter for monitoring of etanercept therapy: Code(s): Z51.81 - Encounter for therapeutic drug level monitoring; Z79.620 - residential (current) use of immunosuppressive biologic Plan: #Long-term Use of TNF Inhibitors: Enbrel Discussed with the patient the benefits and risks of TNF inhibitors for the management of the rheumatic condition Benefits include reduce pain, maintenance of remission and reduction of flares as well as ?progression of the disease Risks include injection sites/infusion reactions, serious infections (such as bacterial infections, opportunistic infections), malignancy, delaminating syndromes, autoimmune phenomena, CHF exacerbations, palmar plantar psoriasis and cytopenias Recommended rotating injection sites, and holding medication during and for up to 1 week after resolution of a febrile illness or open skin wound Plan I spent 32 minutes reviewing the record and labs, taking a history, examining the patient, discussing the treatment plan, ordering diagnostic work up and documenting in the medical record Orders: Orders C Reactive Protein 4 Months M06.041 - Rheumatoid arthritis without rheumatoid factor, right hand, M06.042 - Rheumatoid arthritis without rheumatoid factor, left hand T Spot TB 4 Months M06.041 - Rheumatoid arthritis without rheumatoid factor, right hand, M06.042 - Rheumatoid arthritis without rheumatoid factor, left hand Complete Blood Count Auto Diff 4 Months M06.041 - Rheumatoid arthritis without rheumatoid factor, right hand, M06.042 - Rheumatoid arthritis without rheumatoid factor, left hand Comprehensive Met. Panel 4 Months M06.041 - Rheumatoid arthritis without rheumatoid factor, right hand, M06.042 - Rheumatoid arthritis without rheumatoid factor, left hand Erythrocyte Sedimentation Rate 4 Months M06.041 - Rheumatoid arthritis without rheumatoid factor, right hand, M06.042 - Rheumatoid arthritis without rheumatoid factor, left hand Hepatitis A,B,C Profile 4 Months M06.041 - Rheumatoid arthritis without rheumatoid factor, right hand, M06.042 - Rheumatoid arthritis without rheumatoid factor, left hand Medications: New etanercept (Enbrel SureClick) 50 mg subcut QWEEK 4 mL 5RF M06.041 - Rheumatoid arthritis without rheumatoid factor, right hand, M06.042 - Rheumatoid arthritis without rheumatoid factor, left hand Refilled methotrexate sodium 10 mg (4 x 2.5 mg) PO QWEEK 60 tabs 0RF alendronate 70 mg PO QWEEK 12 tabs 1RF leucovorin calcium Take the day after you take methotrexate 20 mg (2 x 10 mg) PO QWEEK 24 tabs 1RF Coding Level of Care Code Est Pt Level 4 (76143) Complex EM visit Add On G2211 Diagnoses Rheumatoid arthritis involving both hands with negative rheumatoid factor M06.041; M06.042 Primary osteoarthritis of both hands M19.041; M19.042 Osteoarthritis type: primary Age-related osteoporosis without current pathological fracture M81.0 Osteoporosis type: age-related Presence of current pathological fracture: without current pathological fracture Pseudogout M11.20 Encounter for methotrexate monitoring Z51.81; Z79.631 Encounter for monitoring of etanercept therapy Z51.81; Z79.620
[2025-02-02 08:06] VITALS: BP 120/60; PULSE 59; RESP 18; O2SAT 98; BMI 23.9
== END 2025-02-02 08:38 | disposition home or self-care (01) ==
LOC: HO.RHE 07:39
PROVIDERS: PCP Physician Assistant Medical; Visit Provider Student in an Organized Health Care Education/Training Program
DX: M06.041 Rheumatoid arthritis without rheumatoid factor, right hand (principal); M06.042 Rheumatoid arthritis without rheumatoid factor, left hand; M19.041 Primary osteoarthritis, right hand; M19.042 Primary osteoarthritis, left hand; M81.0 Age-related osteoporosis without current pathological fracture; M11.20 Other chondrocalcinosis, unspecified site; Z51.81 Encounter for therapeutic drug level monitoring; Z79.631 Long term (current) use of antimetabolite agent; Z79.620 Long term (current) use of immunosuppressive biologic
CPT/HCPCS: 99214

== ENCOUNTER → 2025-02-02 07:38 | Outpatient (BNVA) | payer BC, SELFPAY | PROVIDERS: PCP Physician Assistant Medical; Visit Provider Student in an Organized Health Care Education/Training Program ==

== ENCOUNTER 2025-04-26 10:44 | Outpatient (AMB) | payer BC, SELFPAY ==
--- OUTSIDE RECORDS SUMMARY | 2025-01-14 05:20 | XMS_ITS ---
Author Organization [facility] Address [address] [place] [address] [address] [place] [address] Care Team Providers Care Zoning Engineer Name Role Phone Raman WARE, Vandana Primary Care Provider Unavail Eugene Hoang Jr Unavailable [phone] REASON FOR VISIT dysphagia Encounters Encounter Location Date Provider Diagnosis [facility] [place] [address] [place], [place] [phone] 01/14/2025 Eugene Iyer Jr Dysphagia R13.10 Assessments Encounter Date Diagnosis (ICD Code) Assessment Notes Treatment Notes Treatment Clinical Notes Section Notes 01/14/2025 Dysphagia (ICD-10 - R13.10) Plan Of Treatment Next Appt Details Provider Name:Eugene domingo Jr, 04/17/2026 09:40:00 AM, [address] [place] [address], [address], [place], [address], Progress Notes * KOFI STANLEYDOB:1945 (79 yo M)Acc No.[id number]:01/14/2025 EGD/MAC Patient: KOFI ETIENNE Provider: Fran Iyer MD :1945 A ge:79 Y S ex:Male Date:01/14/2025 Address:[place] Pcp:Vandana Camargo NP Subjective: * Chief Complaints: * 1 . Dysphagia. * Medical History: Objective: * Vitals: Assessment: * Assessment: 1. D ysphagia - R13.10 (Primary) Plan: * Treatment: * Procedure Codes: 4 3239 UPPER GI ENDOSCOPY, BIOPSY, 18796 ESOPH ENDOSCOPY, DILATION, Modifiers: 59 * * The named appointment provid er may or may not be the originator of this progress note, and it is not deemed complete until electronically signed by the appointment provider. Sign off status: Pending * Provider: Fran Iyer MD Date: 0 01/14/2025 Generated for Rona leung/Hesham/Petersonitting on: 0 04/26/2025 11:46 AM EDT
--- NOTE | 2025-04-26 11:07 | A.OFFVIS_ITS ---
Vital Signs 04/26/25 11:09 Height 5 ft 8 in Weight 166 lb BMI 25.2 BP 122/64 Blood Pressure Location Rt brachial Position Sitting Pulse 58 Pulse Source Pulse Oximeter Pulse Oximetry (%) 99 Oxygen Delivery Method Room Air Intake Visit Reasons: 3mon follow-up Intake Note: Patient presents for follow up increase carbidopa levodopa Allergies sertraline Allergy (Intermediate, Verified 04/26/25 11:11) nausea,dizziness acetaminophen (From Percocet) Allergy (Unknown, Verified 04/26/25 11:11) unknown amoxicillin Allergy (Unknown, Verified 04/26/25 11:11) unknown erythromycin base Allergy (Unknown, Verified 04/26/25 11:11) unknown minocycline Allergy (Unknown, Verified 04/26/25 11:11) unknown oxycodone (From Percocet) Allergy (Unknown, Verified 04/26/25 11:11) unknown polymyxinb tmp Allergy (Intermediate, Uncoded 04/26/25 11:11) swelling, rash HPI Comments Details: 79y/o Right handed male comes for follow up of Parkinsons disease.He is doing OK , still has tremors in his right LE and uE No major change from last visit He was diagnosed 3 years ago. He missed his last dose due to a meeting .he is better with increase in sinemet during his last visit. he reports neck pain and stiffness. History from his initial visit-He noticed intermittent right hand and leg tremors about 4 years ago and it has progressively worsened since then .The tremors are mostly at rest . He is independent in all ADLS He denies memory issues. Sleep is ok . he reports nightmares related to service in the [employer]. vivid dreams , REM behavior disorder. His mood is Ok and he is motivated. 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 His speech is softer and has excessive drooling He has mild to moderate difficulty with hand writing, using utensils, dressing , needs help with shower. His gait is slow and mildly off balance - he has right AFO No dizziness , no double vision . He has mild constipation and mild urgency He has falls- mainly related to his . 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 Gout Footdrop BPH (benign prostatic hyperplasia) Hypertension Diverticulosis Thrombocytopenia Acid reflux Basal cell carcinoma Cholelithiasis Nephrolithiasis PTSD (post-traumatic stress disorder) Parkinsons Osteoarthritis of hands, bilateral Chronic sinus bradycardia Restless leg Dyslipidemia Surgical History S/P cardiac cath S/P trigger finger release Hx of endoscopy S/P TURP Hx of tonsillectomy Hx of lithotripsy Hx of colonoscopy Family History Mother Arthritis Social History Household Members: Spouse Housing: House Do you presently have visiting nurse or other home services: No Alcohol intake: never Patient Tobacco Use Status: Never used Tobacco e-Cigarette/Vaping Use: Never Used service: Yes Current occupational status: retired 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 Physical Exam Vital Signs: Last Vital Signs Pulse 58 04/26/25 11:09 BP 122/64 04/26/25 11:09 Pulse Ox 99 04/26/25 11:09 Oxygen Delivery Method Room Air 04/26/25 11:09 BMI result Body Mass Index 25.2 Const General: cooperative, healthy appearing and no acute distress Nutritional Appearance: average body habitus Orientation/consciousness: patient oriented x3 HEENT Head: Yes normal to inspection Neck Other: mild antecollis and restricted range of motion Neuro Other: Mild decreased blink and facial expression Voice-dysprosody Right UE high amplitude rest tremors , right leg Intermittent left hand tremors Fine Finger movements - severely decreased primitivo l>R Alternating hand movements - decreased primitivo Hand movements - decreased primitivo Foot taps- decreased primitivo No cog wheel rigidity gait - stooped, mild slowness and decreased arm swing R>L with a cane , weakness of right leg General: patient oriented x3 Cranial nerves: Yes CN's II-XII intact bilaterally, Yes Bilaterally intact EOM present, Yes Normal facial strength present and Yes Midline tongue present Cognition (Neuro): normal cognition Motor exam (neuro): Normal motor muscle tone present throughout Coordination: [id number] test normal Assessment & Plan Assessment & Plan (1) Parkinson's disease without dyskinesia: Code(s): G20.A1 - Parkinson's disease without dyskinesia, without mention of fluctuations Category: Medical Qualifiers: Fluctuating manifestations: without fluctuating manifestations Qualified Code(s): G20.A1 - Parkinson's disease without dyskinesia, without mention of fluctuations (2) Neck pain: Code(s): M54.2 - Cervicalgia Category: Medical Plan Continue carbidopa/levodopa 25/100 7am, 1pm, 7pm -1.5tabs 10am, 4pm, 10pm -1 tab, 1pm ( 7.5 tabs per day ) ropinirole 2mg bid Monitor hallucinations F/u psychologist Discussed fall prevention. Orders: Orders PT Evaluation and Treatment Today M54.2 - Cervicalgia Medications: New baclofen 10 mg PO BEDTIME 30 tabs 0RF Coding Level of Care Code Est Pt Level 4 (91008) Complex EM visit Add On G2211 Diagnoses Parkinson's disease without dyskinesia or fluctuating manifestations G20.A1 Fluctuating manifestations: without fluctuating manifestations Neck pain M54.2
[2025-04-26 11:09] VITALS: BP 122/64; PULSE 58; O2SAT 99; BMI 25.2
--- OUTSIDE RECORDS SUMMARY | 2025-04-26 11:46 | XMS_ITS | Data Portability ---
Author Organization [place] [facility] Steph [facility] [place] Address [address] [facility] [address] [place] [address] Care Team Providers Care Hospital Technician Name Role Phone JENNIFER ESPOSITO Referring Provider [facility] JENNIFER Flores Primary Care Provider Assessment Encounter Date Assessment Date Assessment LastModified by Organization Details LastModified Time 05/13/2024 05/13/2024 The above findings were discussed [...] available 10/21/2024 09:07:28 11/23/2024 11/23/2024 IMPRESSION: 79-year-old wdtec-zgxx-fddart nt man with left shoulder glenohumeral arthritis [...] and treatment options. 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 Likely cuff tear as well PLAN: A discussion regarding the risks and benefits [...] corticosteroid injection. Patient tolerated the injection well. We will see patient back in 3 months for repeat clinical evaluation and treatment discussion. PRIOR AR I discussed the treatment options with the [...] clinical evaluation and treatment options. Not available 02/22/2025 09:20:52 Plan of Treatment Reminders Order Date Submit Date Provider Last Modified By Organization Details Last Modified Time Details Appointments FOLLOW UP 2024 11:00A Lc Salazar MD Not available Not available Not available Lab None recorde d. Referral None recorde d. Procedures None recorde d. Surgeries None recorde d. Imaging XR, shoulde r, 2 or more view 2023 024 [facility], [address], [address], [place], [address], 05/13/2024 15:34:12 Medication Orders lidocai ne (PF) 10 mg/mL (1 %) injecti on solutio n 2024 025 [email or web address] Not available 02/23/2025 09:45:00 Marcain e (PF) 0.5 % (5 mg/mL) injecti on solutio n 2024 025 Not available 02/23/2025 09:45:00 triamci nolone acetoni de 40 mg/mL suspens ion for injecti on 2024 025 [email or web address] Not available 02/23/2025 09:45:00 lidocai ne (PF) 10 mg/mL (1 %) injecti on solutio n 2024 025 Not available 11/23/2024 15:38:24 Marcain e (PF) 0.5 % (5 mg/mL) injecti on solutio n 2024 025 [email or web address] Not available 11/23/2024 15:38:24 triamci nolone acetoni de 40 mg/mL suspens ion for injecti on 2024 025 [email or web address] Not available 11/23/2024 15:38:24 lidocai ne (PF) 10 mg/mL (1 %) injecti on solutio n [address]/Pharmacy #[id number], [address], [place], [address], 10/21/2024 13:13:53 triamci nolone acetoni de 40 mg/mL suspens ion for injecti on [address]/Pharmacy #[id number], [address] [place], [address], 10/21/2024 13:13:53 diclofe nac 1 % topical gel 2024 025 [facility]/Pharmacy #[id number], [address] [place], [address], 10/21/2024 09:08:00 lidocai ne (PF) 10 mg/mL (1 %) injecti on solutio n [address]/Pharmacy #[id number], [address] [place], [address], 08/12/2024 08:54:35 triamci nolone acetoni de 40 mg/mL suspens ion for injecti on 2023 024 [email or web address] Not available 08/12/2024 09:02:17 lidocai ne (PF) 10 mg/mL (1 %) injecti on solutio n [address]/Pharmacy #[id number], [address] [place], [address], 08/12/2024 08:54:35 triamci nolone acetoni de 40 mg/mL suspens ion for injecti on [address]/Pharmacy #[id number], [address] [place], [address], 08/12/2024 08:54:35 lidocai ne (PF) 10 mg/mL (1 %) injecti on solutio n 2023 024 [facility]/Pharmacy #[id number], [address] [place], [address], 05/13/2024 15:34:12 triamci nolone acetoni de 40 mg/mL suspens ion for injecti on 2023 024 [email or web address] [facility] #[id number], [address] [facility] [place], [address], 08/12/2024 08:32:28 Patient TargetsNo targets recorded. Patient Instructions Encounter Date Encounter Id Patient Instructions Last Modified By Organization Details Last Modified Time 05/13/2024 [id number] You have been provided with a cortisone [...] following the injection. This is called a flare . To help minimize the chances of this, please see the post-injection instructions above. There is a less than 1% chance of an infection. If you notice any signs of infection (redness, warmth, drainage, fever greater than 100 degrees) please call our office or contact us through the portal TAMIE. [email or web address] Not available 05/13/2024 11:53:30 3 views of the l eft shoulder were ordered and reviewed today, this demonstrates mild glenohumeral joint arthritis with joint space narrowing. There are degenerative changes at the greater tuberosity with calcification noted. There is a type II acromion. There is diffuse demineralization of the bones. No acute findings noted. Not available 05/13/2024 11:54:26 08/12/2024 [id number] You have been provided with a cortisone [...] following the injection. This is called a flare . To help minimize the chances of this, please see the post-injection instructions above. There is a less than 1% chance of an infection. If you notice any signs of infection (redness, warmth, drainage, fever greater than 100 degrees) please call our office or contact us through the portal GeoSentric. Not available 08/12/2024 09:33:27 10/21/2024 [id number] You have been provided with a cortisone [...] following the injection. This is called a flare . To help minimize the chances of this, please see the post-injection instructions above. There is a less than 1% chance of an infection. If you notice any signs of infection (redness, warmth, drainage, fever greater than 100 degrees) please call our office or contact us through the portal GeoSentric. [email or web address] Not available 10/21/2024 09:06:07 Reason for Referral None Reported. Problems Name Problem SNOMED Code Status Onset Date Resolution Date Notes Provider Name and Address Organization Details Recorded Time Closed fracture of distal end of radius 11180673 Active 2023 Leidy frost MD [address], [place], [address], [place] [facility], P 4 13:08:08 Osteoarthro sis of the carpometaca rpal joint of the thumb 34766193 Active 2023 Leidy frost MD [address], [place], [address], [place] [facility], [facility] 4 13:08:36 Arthritis of left glenohumera l joint 2329180747715 100 Active 2023 Leidy frost MD [address], [place], [address], [place] [facility], P 4 11:54:47 Triggering of digit 536506015 Active 2023 Leidy frost MD [address], [place], [address], [place] [facility], P 4 11:56:43 Arthritis of first carpometaca rpal joint of right hand 5770141953607 100 Active 2024 Leidy frost MD [address], [place], [address], [place] [facility], P 5 09:05:52 Osteoarthri tis of finger joint of right hand 6661482149554 9104 Active 2024 Leidy frost MD [address], [place], [address], [place] [facility], P 5 09:07:37 Problem Notes None recorded. Procedures Surgical History Date Name Laterality Status Provider Name and Address Organization Details Recorded Time 05/06/20 25 AJR Shoulder GH Inj completed Edwardo Salazar MD [address], [place], [address], [place] [facility], [facility] 02/22/2025 09:19:33 11/23/19 25 AJR Shoulder GH Inj completed Edwardo Salazar MD [address], [place], [address], [place] [facility], [facility] 11/23/2024 09:36:38 10/21/19 25 LES finger joint injection completed Leidy Langford MD [address], [place], [address], [place] [facility], [facility] 10/21/2024 09:05:14 08/12/20 24 LES finger joint injection completed Leidy Langford MD [address] [facility],[address] [place] [address], [address], [place] [facility], [facility] 08/12/2024 09:33:13 08/12/20 24 LES Subacromial Shoulder Inj completed Leidy Langford MD [address] [facility],[address] [place] [address], [address], [place] [facility], [facility] 08/12/2024 09:32:56 05/13/20 24 LES Subacromial Shoulder Inj completed Leidy Langford MD [address] [facility],[address] [place] [address], [address], [place] [facility], P 05/13/2024 11:53:24 04/01/20 24 LES trigger finger/De Quervain's injection completed Leidy Langford MD [address] [facility] [address] [place] [address], [address], [place] [facility], P 04/01/2024 11:47:54 02/26/20 24 LES finger joint injection completed Leidy Langford MD [address] [facility],[address] [place] [address], [address], [place] [facility], [facility] 02/26/2024 13:10:34 Imaging Results None recorded. Procedure Notes None recorded. Medical Equipment None Reported. Allergies Allergen ID Allergen Name Allergen Category Reaction Reaction Severity Criticality Documentation Date Start Date Code Code System Note Provider Name and Address Organization Details Recorded Time 07219 acetamino phen / oxycodone medicatio n Not available Not available Not available 02/26/2024 07522 3 RxNorm Cassidy Duggan null, [place] [facility], P 4 09:31:06 13873 oxycodone medicatio n Not available Not available Not available 02/26/2024 7804 RxNorm Cassidy Duggan null, [place] [facility], P 4 09:31:25 26583 amoxicill in medicatio n Not available Not available Not available 02/26/2024 723 RxNorahul Duggan null, [place] [facility], P 4 09:31:33 06783 erythromy leisa medicatio n Not available Not available Not available 02/26/2024 4053 RxKostas Duggan null, [place] [facility], P 4 09:31:43 25813 minocycli ne medicatio n Not available Not available Not available 04/01/2024 6980 RxNorahul Duggan null, [place] [facility], P 4 11:19:40 39936 sertralin e medicatio n Not available Not available Not available 04/01/2024 [id number] Eloisa Duggan null, [place] [facility], [facility] 4 11:19:48 Medications Name Sig Start Date Stop Date Status Note LastModified by Organization Details LastModified Time atorvastati n 40 mg tablet TAKE 1 TABLET BY MOUTH EVERY DAY active Not Available Not Available No t Available prednisone 10 mg tablet PLEASE SEE ATTACHED FOR DETAILED DIRECTION S active Not Available Not Available No t Available doxycycline hyclate 100 mg capsule TAKE 1 CAPSULE BY MOUTH EVERY DAY WITH FOOD active Not Available Not Available No t Available atorvastati n 20 mg tablet TAKE 1 TABLET DAILY active Not Available Not Available No t Available alendronate 70 mg tablet TAKE 1 TABLET BY MOUTH EVERY WEEK active Not Available [...] methotrexat e sodium 2.5 mg tablet TAKE 4 TABLETS BY MOUTH ONCE A WEEK active Not Available Not Available No [...] Available Not Available Not Available lorazepam @ [facility] 08/12 completed Not Available Not Available [...] Updated DateTime 10/21/2024 177.8 cm 22 kg/m2 50450.63 g [facility]24 08:55:09 Date Recorded Body height Body mass index (BMI) Body weight Provider Name and Address Organization Details Last Updated DateTime 08/12/2024 177.8 cm 22 kg/m2 63331.63 g Selma [facility], 08/12/2024 08:33:47 Social History None recorded. Functional Status Question Answer Note LastModified by Organizat ion Details LastModified Time Do you use any illicit or recreational drugs? No Information not available 02/26/2024 Do you or have you ever used any other forms of tobacco or nicotine? No [email or web address] Information not available 02/26/2024 What is your level of alcohol consumption? None Information not available 02/26/2024 Mental Status None recorded. Family History Nothing [...] Anemia N Brain Injury N Heart Attack (OK) N Osteopenia N Diabetes N Bleeding Disorder N Seizures/Epilepsy N AIDS/HIV N Congestive Heart Failure (CHF) N Asthma N Amputation N Reflux/GERD Y Sleep Apnea N Hepatitis N Aneurysm N Heart Disease N Pulmonary Embolism N Hypertension Y Osteoporosis Y Past Encounters Encounter ID Performer Location Encounter Start Date Encounter Closed Date Diagnosis/Indication Diagnosis SNOMED-CT Code Diagnosis ICD10 Code Diagnosis Note [id number] [facility] [address] [address] 02/26/2024 09:18:47 02/26/2024 10:20:59 Pain of left wrist [id number] 48711 M25.532 Additional diagnosis detail: Left wrist pain Closed fra cture of distal end of radius 91319176 S52.572A Additional diagnosis detail: Other closed intra-venkata cular fracture of distal end of left radius, initial encounter Osteoarthr osis of the carpometacarpal joint of the thumb 50677325 M18.12 Additional diagnosis detail: Primary osteoarthr itis of first carpometac arpal joint of left hand [id number] MD BLANCO George [address] [address] 04/01/2024 11:09:01 04/01/2024 11:44:29 Closed fracture of distal end of radius 16792079 S52.572A Additional diagnosis detail: Other closed intra-venkata cular fracture of distal end of left radius, initial encounter Osteoarthr osis of the carpometacarpal joint of the thumb 77920365 M18.12 Additional diagnosis detail: Primary osteoarthr itis of first carpometac arpal joint of left hand Triggering of digit 2399 70534 M65.332 Additional diagnosis detail: Trigger middle finger of left hand, trigger ring finger of left hand [id number] MD BLANCO George [facility] [address] [address] 05/13/2024 10:26:20 05/13/2024 11:10:39 Closed fracture of distal end of radius 46171196 S52.572A Additional diagnosis detail: Other closed intra-venkata cular fracture of distal end of left radius, initial encounter Osteoarthr osis of the carpometacarpal joint of the thumb 65335463 M18.12 Additional diagnosis detail: Primary osteoarthr itis of first carpometac arpal joint of left hand Chronic pa in of left upper limb 7737254866 3961281 M25.512 G89.29 Additional diagnosis detail: Chronic left shoulder pain Pain of le ft shoulder joint 2730854300 0474920 M25.512 Additional diagnosis detail: Pain, joint, shoulder, left Arthritis of left glenohumeral joint 2578944022 029902 M19.012 Triggering of digit 2399 64994 M65.342 M65.332 Additional diagnosis detail: Trigger finger, left ring fingerAddi tional diagnosis detail: Trigger finger, left middle finger [id number] MD BLANCO George [facility] [address] [facility] [address] [place] [address] 08/12/2024 08:16:17 08/12/2024 08:54:36 Arthritis of left glenohumeral joint 6610018592 758736 M19.012 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 4230960574 765526 M18.12 [id number] MD BLANCO George [facility] [address] [address] 10/21/2024 08:09:50 10/21/2024 09:19:40 Osteoarthrosis of the carpometacarpal joint of the thumb 88631912 M18.12 Additional diagnosis detail: Primary osteoarthr itis of first carpometac arpal joint of left hand 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 8615600474 472770 M18.11 Osteoarthr itis of finger joint of right hand 1239925652 4058994 M15.1 [id number] [facility] [address] [facility] [address] [place] [address] 11/23/2024 08:34:37 11/23/2024 09:36:16 Arthritis of left glenohumeral joint 6914617178 460600 M19.012 [id number] MD BLANCO Sidd[facility] [address] [facility] [address] [place] [address] 02/22/2025 08:42:05 02/22/2025 09:22:39 Arthritis of left glenohumeral joint 9764523218 143307 M19.012 Health Concerns Section Related Observation LastModified by Organization Detai ls LastModified Time None Recorded Concern Status LastModified by Organization Details LastModified Time None Recorded Advance Directives Directive None Recorded Payers Insurance Date Sequence Insurance Name Policy Number Policy Carrillo Covered Member ID Carrillo Member ID Guarantor Name 02/19/2025 1 [facility]: MEDICARE PPO BLUE (MEDICARE REPLACEMENT PPO) [id number] Caleb Lai Mauricio [id number] Caleb Martínez Notes Date Note Type Note Provider Name and Address Organization Details Recorded Time 05/13/2024 text/html He presents for follow-up of [...] and pain with activities. He has tried djmm-tdw-gtonwea medications with have not helped his pain significantly. Leidy Langford MD [address] [place] [address], [address], [place] [facility], [facility] 05/13/2024 11:57:41 08/12/2024 text/html He returns [...] were previously injected. Leidy Langford MD [address] [address], [place], [address], [facility], P 08/12/2024 09:36:08 10/21/2024 text/html He presents [...] helpful. 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 He does have pain in his left shoulder for which I gave him a cortisone injection on 08/12/2024 for glenohumeral joint arthritis. 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 Edwardo Salazar MD [address] [address], [place], [address], [facility] - [facility], P 11/23/2024 09:41:56 02/22/2025 text/html Caleb returns to the office today. He had 10 weeks of relief from this injection. He recently started Enbrel for his rheumatoid arthritis which he is unsure if it is helping. His daughter has returned from the hospital that his home. PRIOR AR [birth year][age]-year-old qglul-opyj-keydrak t man with left shoulder pain for years. He does have rheumatoid arthritis for which she is on methotrexate and another medication.He has previously seen Dr. Langford for injections back in July. He rates pain at best a 5 out of 10 and at worst 10 out of 10. SANE score 45%. Night pain. 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 He does additionally have PTSD from his time in the [employer]. 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 Edwardo Salazar MD [address] [place] [address], [address], [place] [facility], P 02/22/2025 09:21:17
--- OUTSIDE RECORDS SUMMARY | 2025-04-26 11:46 | XMS_ITS | Clinical Summary ---
Author Organization [facility] Address [address] [place] [address] Phone Care Team Providers Care Pediatrics Hospitalist Name Role Phone Adalberto Zepeda Primary Care Provider [phone] Allergies Active Allergy Reactions Criticality Noted Date Comments Amoxicillin Swelling Medium 04/19/2011 Other Reaction(s): Rash/Dermatitis eye swelling Erythromycin Skin Problems High 01/21/2018 Minocycline Other High 12/20/2009 Changed color of skin greenish yellow Oxycodone Rash Medium 12/24/2017 Oxycodone-Acetaminophen Rash Medium 08/25/2024 Polymyxin B Rash Medium 08/16/2019 Sertraline Rash Medium 08/16/2019 Medications buPROPion (WELLBUTRIN) 100 mg tablet Take 1 [...] 2 times daily as needed. 1 Active LORazepam (ATIVAN) 0.5 mg tablet Take [...] DAY AFTER YOU TAKE METHOTREXATE 4 Active QUEtiapine (SEROquel) 100 mg tablet Take 1 tablet (100 mg total) by mouth at bedtime. Active amLODIPine (NORVASC) 5 mg tablet Take 1 tablet (5 mg total) by mouth 1 (one) time each day. 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 UPPER GASTROINTESTINAL ENDOSCOPY 02/27/2018 PROCEDURE: [place] UPPER GI ENDOSCOPY PERFORMED; COMMENT: Normal upper [...] rthritis of multiple sites (HCC) Parkinson's disease (CMS/HCC V24, CMS/HCC V28) 09/27/2019 DX:Parkinson's disease (HCC) Osteoarthritis of [...] your loved ones. For example, child care giver or elderly care for an older adult? [...] 64 12/27/2024 12:32 PM EDT Temperature 36.7 C (98 F) 12/27/2024 12:32 PM EDT Respiratory Rate 14 [...] Description 05/24/2025 9:30 AM EDT Office Visit [facility] [address] [place] [phone] Katja Lainez MD [address] [place] [address] 07/04/2025 10:30 AM EDT Office Visit Adult Medicine [facility] [address] [place] [address] Adalberto Zepeda PA [address] [place] [address] Health Maintenance Due Date Last Done Comments Medicare Annual Wellness Visit 09/28/2022 COVID-19 Vaccine ( season) 2024 07/01/2022, 07/18/2021, 12/10/2020, Additional history exists Influenza Vaccine (#1) 2025 4, 08/20/2023, 08/06/2023, Additional history exists Hypertension/CHF/CAD Annual BMP Blood Test 08/04/2025 08/04/2024 Depression Screening 12/20/2025 12/20/2024 Social Influencers of Health Screening 12/20/2025 12/20/2024 Falls Risk Assessment 12/27/2025 12/27/2024, 025 Cholesterol Screening (Lipid Panel) 08/04/2029 08/04/2024 DTaP,Tdap,and Td Vaccines (7 - Td or Tdap) 08/06/2033 08/06/2023, 04/02/2013, 04/02/2013, Additional history exists Zoster Vaccines Completed 06/26/2023, 02/17, 03/30/2013 Pneumococcal Vaccine: 50+ Years Completed 08/10/2024, 07/20/2016, [...] Care Plan Impaired Tissue No Kusum Messina, sales and catering coordinator volume breakdown reduced by X% by week 8 Care Plan Impaired Tissue No Kusum Messina, sales and catering coordinator volume breakdown reduced by X% by week [...] Procedure Name Priority Date/Time Associated Diagnosis Comments EXTERNAL CLINICAL LAB 01/26/2025 EXTERNAL CLINICAL LAB 01/26/2025 from Last 3 Months Results * External clinical lab (01/26/2025) Only the most recent of2 resultswithin the time period is included. us Provider [facility] BLOOD ORDERABLES Fin al Result from Last 3 Months Additional Health Concerns Active Problems Noted Date Diagnosed Date Impaired Tissue 09/02/2024 Education needed on impact of smoking on wound 1 11/02/2023 Education needed related to ulceration/compromised skin integrity. 09/02/2024 Insurance BLUE CROSS - [place] MEDIC[place] ADVANT[place] Advance Directives Documents on File Type Date Recorded Patient Gold Burnisher Expl anation Health Care Decision (hx) 01/07/2018 AD UP DIRECTIVE Health Care Decision (hx) 01/07/2018 AD UP DIRECTIVE Care Teams Pediatrics Hospitalist Relationship Specialty Start Date End Date Adalberto Zepeda PA [address] [place] [address] PCP - General Internal Medicine 08/18/24
--- OUTSIDE RECORDS SUMMARY | 2025-04-26 11:46 | XMS_ITS ---
Author Name [facility] Organization Unknown History of Medication Use Medication Directions Dispensed Refills Start Date End Date Status Marcaine (PF) 0.5 % (5 mg/mL) injection solution Take 4 mL by injection route. 5 active triamcinolone acetonide 40 mg/mL suspension for injection Take 80 mg by injection route. 4 active cephalexin 500 mg capsule TAKE 1 CAPSULE BY MOUTH TWICE A DAY FOR 7 DAYS 10/21/19 25 active atorvastatin 20 mg tablet 08/12/20 24 active hydroxychloroquine 200 mg tablet TAKE 1 TAB TWICE DAILY X5 DAYS A WEEK AND 1 TAB DAILY X2 DAYS A WEEK 08/12/20 24 active tramadol 50 mg tablet 08/12/20 24 active trazodone 05/13/20 24 completed trazodone 05/13/20 24 completed triamcinolone acetonide 40 mg/mL suspension for injection active Marcaine (PF) 0.5 % (5 mg/mL) injection solution active atorvastatin 40 mg tablet TAKE 1 TABLET BY MOUTH EVERY DAY active bupropion HCl XL 300 mg 24 hr tablet, extended release Take 1 tablet every day by oral route. active ciprofloxacin 500 mg tablet TAKE 1 TABLET BY MOUTH TWICE A DAY active doxycycline hyclate 100 mg capsule TAKE 1 CAPSULE BY MOUTH EVERY DAY WITH FOOD active lisinopril 40 mg tablet active methotrexate sodium 2.5 mg tablet TAKE 5 TABLETS AT SAME TIME ON SAME DAY BY MOUTH ONCE EVERY WEEK active mupirocin 2 % topical ointment APPLY AM, NOON AND PM IN AND AROUND THE NOSE FOR 7 DAYS active Allergies Allergen Reaction Severity Comment Documented Date Source Statu s AMOXICILLIN ENS_AONECT ERYTHROMYCIN BASE ENS_AONECT MINOCYCLINE ENS_AONECT OXYCODONE ENS_AONECT PERCOCET ENS_AONECT SERTRALINE ENS_AONECT Problems Problem Status Onset Date Problem Type Date of Resoluti on Source Closed fracture of distal end of radius active 2024-02-26 ProblemAct ENS_AON ECT Osteoarthritis of finger joint of right hand active 2024-10-21 ProblemAct [facility] 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 active 2024-10-21 ProblemAct [facility]ECT Triggering of digit active 2024-05-13 ProblemAct E[facility]ONECT Osteoarthrosis of the carpometacarpal joint of the thumb active 2024-02-26 ProblemAct ENS[facility]AONECT Arthritis of left glenohumeral joint active 2024-05-13 ProblemAct ENS_AONEC T Encounters Encounter Type Encounter Reason Primary Diagnosis Location Date Ambulatory [facility] 02/23/2025 Ambulatory [facility] 02/16/2025 Ambulatory [facility] 12/24/2024 Ambulatory [facility] 11/24/2024 Ambulatory [facility] 11/22/2024 Ambulatory [facility] 11/13/2024 Ambulatory [facility] 2024 Ambulatory [facility] 10/18/2024 Ambulatory [facility] 09/03/2024 Ambulatory [facility] 08/13/2024 Ambulatory [facility] 08[facility]06/2024 Ambulatory [facility] 08/06/2024 Ambulatory [facility] 05/14/2024 Ambulatory [facility] 05/12/2024 Ambulatory [facility] 04/26/2024 Ambulatory [facility] 04/26/2024 Ambulatory [facility] 04/05/2024 Ambulatory [facility] 03/31/2024 Ambulatory [facility] 03/31/2024 Ambulatory [facility] 03/31/2024 Ambulatory [facility] 02/27/2024 Ambulatory [facility] 02/26/2024 Ambulatory [facility] 02/26/2024 Ambulatory [facility] 02/26/2024 Ambulatory [facility] 02/21/2024 Ambulatory [facility] 02/21/2024 Ambulatory [facility] 02/18/2024 Ambulatory [facility] 02/18/2024
--- OUTSIDE RECORDS SUMMARY | 2025-04-26 11:47 | XMS_ITS | Clinical Summary ---
Author Organization [facility] Address [address] [place] [address] Care Team Providers Care Senior Network Architect Name Role Phone Adalberto Zepeda PA-C Primary [...] 51 05/24/2024 9:28 AM EDT Temperature 36.9 C (98.4 F) 05/24/2024 9:28 AM EDT Respiratory Rate - - Oxygen Saturation 99% [...] Additional history exists Influenza Vaccine (#1) 2025 , 08/02/2022, 08/21/2021, Additional history exists Pneumococcal Vaccine Completed 07/20/2016, 02/26/2016, 12/20/2009, Additional history exists Shingrix-Zoster Vaccine Completed 06/26/2023, 03/07 Hepatitis B Vaccines Aged Out No long er eligible based on patient's age to complete this topic RSV Ped < 20 months Aged Out No longe r eligible based on patient's age to complete this topic Care Teams Senior Network Architect Relationship Specialty Start Date End Date Adalberto Zepeda, PAAndreeaC PCP - General Medical Services 08/15/21
== END 2025-04-26 11:27 | disposition home or self-care (01) ==
LOC: HO.HSMS 10:45
PROVIDERS: PCP Physician Assistant Medical; Visit Provider Psychiatry & Neurology Neurology
DX: G20.A1 Parkinson's disease without dyskinesia, without mention of fluctuations (principal); M54.2 Cervicalgia
CPT/HCPCS: 99214

== ENCOUNTER 2025-05-26 08:59 | Outpatient (REF) | payer MEDICARE, SELFPAY ==
--- OUTSIDE RECORDS SUMMARY | 2025-01-14 05:20 | XMS_ITS ---
Author Organization [facility] Address [address] [place] [address] Drive [address] [place] [phone] Care Team Providers Care Staffing Administrator Name Role Phone Raman WARE, Vandana Primary Care Provider Unavail Eugene Hoang Jr Unavailable [phone] REASON FOR VISIT dysphagia Encounters Encounter Location Date Provider Diagnosis [facility] [place] Outpatient [address] [place], [place] [phone] 01/14/2025 Eugene Iyer Jr Dysphagia R13.10 Assessments Encounter Date Diagnosis (ICD Code) Assessment Notes Treatment Notes Treatment Clinical Notes Section Notes 01/14/2025 Dysphagia (ICD-10 - R13.10) Plan Of Treatment Next Appt Details Provider Name:Eugene domingo Jr, 04/17/2026 09:40:00 AM, [address] [place] [address], [address], [place], [address], Progress Notes * KOFI STANLEYDOB:1945 (79 yo M)Acc No.[id number]:01/14/2025 EGD/MAC Patient: KOFI ETIENNE Provider: Fran Iyer MD :1945 A ge:79 Y S ex:Male Date:01/14/2025 Address:[place] Pcp:Vandana Camargo NP Subjective: * Chief Complaints: * 1 . Dysphagia. * Medical History: Objective: * Vitals: Assessment: * Assessment: 1. D ysphagia - R13.10 (Primary) Plan: * Treatment: * Procedure Codes: 4 3239 UPPER GI ENDOSCOPY, BIOPSY, 743[address] ESOPH ENDOSCOPY, DILATION, Modifiers: 59 * * The named appointment provid er may or may not be the originator of this progress note, and it is not deemed complete until electronically signed by the appointment provider. Sign off status: Pending * Provider: Fran Iyer MD Date: 0 01/14/2025 Generated for Rona leung/Hesham/Petersonitting on: 0 05/26/2025 09:21 AM EDT
--- OUTSIDE RECORDS SUMMARY | 2025-05-26 09:21 | XMS_ITS | Clinical Summary ---
Author Organization [facility] Address [address] [place] [address] Phone Care Team Providers Care Volunteer Services Coordinator Name Role Phone Adalberto Zepeda Primary Care Provider [phone] Allergies Active Allergy Reactions Criticality Noted Date [...] negative examination. UPPER GASTROINTESTINAL ENDOSCOPY 02/27/2018 PROCEDURE: FL UPPER GI ENDOSCOPY PERFORMED; COMMENT: Normal upper [...] for your loved ones. For example, child and family counselor or elderly care for an older adult? [...] Care Team (Late st Contact Info) Description 06/01/2025 10:30 AM EDT Office Visit [facility] Hematology Oncology [address] [place] [id number] Katja Lainez MD [address] [place] [id number] 07/04/2025 10:30 AM EDT Office Visit Adult Medicine [facility] [address] [place] [address] Adalberto Zepeda PA [address] [place] [address] Health Maintenance Due Date Last Done Comments Medicare Annual Wellness Visit 09/28/2022 COVID-19 Vaccine ( season) 2024 07/01/2022, 07/18/2021, 12/10/2020, Additional history exists Influenza Vaccine (#1) 2025 4, 08/20/2023, 08/06/2023, Additional history exists Hypertension/CHF/CAD Annual BMP Blood Test 08/04/2025 08/04/2024 Social Influencers of Health Screening 12/20/2025 12/20/2024 Falls Risk Assessment 12/27/2025 12/27/2024, 025 Cholesterol Screening (Lipid Panel) 08/04/2029 08/04/2024 DTaP,Tdap,and Td Vaccines (7 - Td or Tdap) 08/06/2033 08/06/2023, 04/02/2013, 04/02/2013, Additional history exists Zoster Vaccines Completed 06/26/2023, 02/17, 03/30/2013 Pneumococcal Vaccine: 50+ Years Completed 08/10/2024, 07/20/2016, 02/26/2016, Additional history exists Depression Screening Completed 12/20/2024 HIB Vaccines Aged Out No longer eligi [...] Care Plan Impaired Tissue No Kusum Messina, sql etl developer volume breakdown reduced by X% by week 8 Care Plan Impaired Tissue No Kusum Messina, sql etl developer volume breakdown reduced by X% by week [...] Documents on File Type Date Recorded Patient Transmission And Coordination Engineer Expl anation Health Care Decision (hx) 01/07/2018 AD UP DIRECTIVE Health Care Decision (hx) 01/07/2018 AD UP DIRECTIVE Care Teams Volunteer Services Coordinator Relationship Specialty Start Date End Date Adalberto Zepeda PA [address] [place] [address] PCP - General Internal Medicine 08/18/24
--- OUTSIDE RECORDS SUMMARY | 2025-05-26 09:21 | XMS_ITS | Clinical Summary ---
Author Organization [facility] Address [address] [place] [address] Care Team Providers Care Foam Cutting Supervisor Name Role Phone Adalberto Zepeda PA-C Primary [...] age to complete this topic Care Teams Foam Cutting Supervisor Relationship Specialty Start Date End Date Adalberto Zepeda, PAAndreeaC PCP - General Medical Services 08/15/21
[2025-05-26 10:09] LABS: MANUAL DIFF FLAG NO
[2025-05-26 10:16] LABS: Hematocrit 35.1 % (42.0-52.0); Hemoglobin 11.2 g/dl (14.0-18.0); Imm Gran Abs Auto 0.03 X10*3/uL (0.00-0.03); Imm Gran Pct Auto 0.4 % (0.0-0.4); Lymphocytes Absolute Auto 1.2 X10*3/uL (1.2-4.9); Mean Corpuscular HGB Conc 31.9 g/dl (31.0-36.0); Mean Corpuscular Hemoglobin 33.6 pg (27.0-33.0); Mean Corpuscular Volume 105.4 fL (80.0-98.0); NRBC Abs Auto 0.000 X10*3/uL (0.0-0.012); NRBC Pct Auto 0.0 /100WBC (0.0-0.2); Platelet Count 144 X10*3/uL (160-400); Red Blood Count 3.33 X10*6/uL (4.60-5.80); White Blood Count 8.2 X10*3/uL (4.8-10.8)
[2025-05-26 11:06] LABS: HBS Num1 0.00 mIU/mL (0-7.99); HBc Num1 0.10 S/CO (0.00-0.79); HBsAGNum1 0.45 S/CO (0.00-0.99); Hepatitis A Antibody IgM 0.12 Index (0-0.79); Hepatitis B Surface Antigen Negative (Negative); ~HepC Num1 0.26 S/CO (0.00-0.79); ~Hepatitis A Antibody IgM Nonreactive (Nonreactive); ~Hepatitis B Surface Antibody NONREACTIVE (Nonreactive); ~Hepatitis C Antibody Nonreactive (Nonreactive)
[2025-05-26 11:14] LABS: Anion Gap 12 (12-20); Blood Urea Nitrogen 23 mg/dL (9-16); Carbon Dioxide 26 mmol/L (22-29); Chloride 111 mmol/L (96-108); Estimated Glomerular Filt Rate 54; Potassium 3.8 mmol/L (3.3-5.1); Sodium 145 mmol/L (135-145)
[2025-05-26 11:15] LABS: Alanine Aminotransferase 25 U/L (0-40); Albumin Level 4.2 g/dL (3.5-5.0); Alkaline Phosphatase 65 U/L (39-117); Aspartate Amino Transferase 28 U/L (5-37); Calcium 8.6 mg/dL (8.4-10.2); Total Protein 6.3 g/dL (6.5-8.0)
[2025-05-29 16:28] LABS: TS Negative Control Passed; TS Panel A 0; TS Panel B 0; TS Positive Control Passed; TSpotTB Negative (Negative)
== END 2025-05-26 09:00 | disposition home or self-care (01) ==
LOC: HO.HMGCLDS 08:59
PROVIDERS: PCP Physician Assistant Medical; Visit Provider Student in an Organized Health Care Education/Training Program
DX: Z11.4 Encounter for screening for human immunodeficiency virus [HIV] (principal); E55.9 Vitamin D deficiency, unspecified; M06.041 Rheumatoid arthritis without rheumatoid factor, right hand; M06.042 Rheumatoid arthritis without rheumatoid factor, left hand; Z11.59 Encounter for screening for other viral diseases
CPT/HCPCS: 36415; 80053; 82306; 85025; 85652; 86140; 86481; 86704; 86706; 86709; 86803; 87340

== ENCOUNTER 2025-06-03 08:29 | Outpatient (AMB) | payer BC, SELFPAY ==
--- OUTSIDE RECORDS SUMMARY | 2025-01-14 05:20 | XMS_ITS ---
Author Organization [facility] Address [address] [place] [address] [address] [place] [address] Care Team Providers Care Environmental Issues Instructor Name Role Phone Raman WARE, Vandana Primary Care Provider Unavail Eugene Hoang Jr Unavailable REASON FOR VISIT dysphagia Encounters Encounter Location Date Provider Diagnosis [facility] [place] Out[place] [address] [place], [place] [phone] 01/14/2025 Eugene Iyer Jr Dysphagia R13.10 Assessments Encounter Date Diagnosis (ICD Code) Assessment Notes Treatment Notes Treatment Clinical Notes Section Notes 01/14/2025 Dysphagia (ICD-10 - R13.10) Plan Of Treatment Next Appt Details Provider Name:Eugene domingo Jr, 04/17/2026 09:40:00 AM, [address] [place] [address], [address], [place], [address], Progress Notes * KOFI STANLEYDOB:1945 (79 yo M)Acc No.[id number]:01/14/2025 EGD/MAC Patient: KOFI ETIENNE Provider: Fran Iyer MD :1945 A ge:79 Y S ex:Male Date:01/14/2025 Address:[place] Pcp:Vandana Camargo NP Subjective: * Chief Complaints: * 1 . Dysphagia. * Medical History: Objective: * Vitals: Assessment: * Assessment: 1. D ysphagia - R13.10 (Primary) Plan: * Treatment: * Procedure Codes: 4 3239 UPPER GI ENDOSCOPY, BIOPSY, 26683 ESOPH ENDOSCOPY, DILATION, Modifiers: 59 * * The named appointment provid er may or may not be the originator of this progress note, and it is not deemed complete until electronically signed by the appointment provider. Sign off status: Pending * Provider: Fran Iyer MD Date: 0 01/14/2025 Generated for Rona leung/Hesham/Petersonitting on: 0 06/03/2025 08:39 AM EDT
--- NOTE | 2025-06-03 08:34 | A.OFFVIS_ITS ---
Vital Signs 06/03/25 08:39 Height 5 ft 8 in Weight 171 lb 4.787 oz BMI 26.0 BP 130/70 Blood Pressure Location Lt brachial Position Sitting Pulse 49 L Pulse Source Pulse Oximeter Pulse Oximetry (%) 96 Oxygen Delivery Method Room Air Intake Visit Reasons: RA Intake Note: Patient presents for RA follow up. Allergies sertraline Allergy (Intermediate, Verified 06/03/25 08:39) nausea,dizziness acetaminophen (From Percocet) Allergy (Unknown, Verified 06/03/25 08:39) unknown amoxicillin Allergy (Unknown, Verified 06/03/25 08:39) unknown erythromycin base Allergy (Unknown, Verified 06/03/25 08:39) unknown minocycline Allergy (Unknown, Verified 06/03/25 08:39) unknown oxycodone (From Percocet) Allergy (Unknown, Verified 06/03/25 08:39) unknown polymyxinb tmp Allergy (Intermediate, Uncoded 04/26/25 11:11) swelling, rash Medication List - Last Reconciled 06/03/25 by Guillermina Wise MD alendronate 70 mg PO QWEEK amlodipine 10 mg PO DAILY ammonium lactate 12% 1 appl topical DAILY aspirin 81 mg PO DAILY atorvastatin 40 mg PO DAILY baclofen 10 mg PO BEDTIME bupropion HCl 200 mg PO DAILY carbidopa-levodopa 25-100 mg 1.5 tabs at 7am,1pm,7pm , 1 tab at 10am,4pm,10pm orally 6 X A DAY; diclofenac sodium 1% 4 grams topical QID entacapone administer at the same time as l-dopa/carbidopa dose Frequency: 6 x a day with carbi etanercept (Enbrel SureClick) 50 mg subcut QWEEK leucovorin calcium 20 mg (2 x 10 mg) PO QWEEK lisinopril 40 mg PO DAILY methotrexate sodium 10 mg (4 x 2.5 mg) PO QWEEK metronidazole 0.75% 1 appl topical DAILY omeprazole 20 mg PO DAILY paroxetine HCl (Paxil) 10 mg PO DAILY quetiapine 100 mg PO BEDTIME ropinirole 2 mg PO BID tamsulosin 0.4 mg PO BEDTIME HPI Comments Details: Patient is an 79-year-old male with hypertension complicated by CKD stage 3, hyperlipidemia complicated by CAD, Parkinson's disease, nonrheumatic aortic stenosis, osteoarthritis of bilateral hands and sero positive rheumatoid arthritis here today for follow up Interval History: Patient last seen 02/02/25 with de - On Methotrexate 10mg PO and Leucovorin 10mg - Reported worsening joint sx after decreasing the mtx dose (His methotrexate was decreased due to persistent anemia) - Had multiple tender joints on exam - Started on Enbrel Today - On Enbrel 50mg SC weekly, Methotrexate 10mg PO and Leucovorin 10mg - Reports some improvement in joint pain but still with sx - ( 57 years) now in [facility], an assisted living facilities due to advanced alzheimer's Rheumatologic History: Rheumatoid arthritis RF - CCP + dx 2017 (low titer +CCP negative on repeat) Methotrexate started 2018 reduced from 15 to 10 mg due to cytopenias & CKD HCQ added 01/2024 DC 05/2024 ineffective Enbrel added 01/2025 due to persistent synovitis Initial history: This is a 76-year-old male with a complex past medical history including rheumatoid arthritis RF negative, CCP is positive used to see Dr. Mishra who presents for evaluation of rheumatoid arthritis. The condition was diagnosed in 2017 and since then he has been on methotrexate 6 tabs weekly plus folic acid with better control of his RA symptoms. He has not been on methotrexate since November of 2021 as he could not get a prescription. He continues to have pain in both thumbs as well as his fingers. 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 He receives bilateral thumb intra-articular steroid injections every 3 months which gave him about 1 month relief, last injection was 2 months ago. He denies any other joint pain or swelling. About 2 years ago he developed right foot drop, also developed tremors and was diagnosed with [place] son's by Neurology. For his footdrop he went to physical therapy and was prescribed a brace. The brace helps. But his footdrop has not improved. Osteoporosis DEXA shows a T-score-3.0 total left femur. Patient has been getting intra- articular steroid injections for his hand osteoarthritis almost every 3 months for years. This might be a contributing factor. Bilateral hand OA Gets bilateral 1st CMC intra-articular steroid injections by Orthopedics every 3 months. Current Rheumatology Medication(s): Methotrexate 10 mg weekly Leucovorin 10 mg weekly Alendronate 70 mg weekly Enbrel 50mg SC weekly [facility] Medical History (Updated 06/03/25 @ 09:04 by Guillermina Wise MD) Neck pain 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 Gout Footdrop BPH (benign prostatic hyperplasia) Hypertension Diverticulosis Thrombocytopenia Acid reflux Basal cell carcinoma Cholelithiasis Nephrolithiasis PTSD (post-traumatic stress disorder) Parkinsons Osteoarthritis of hands, bilateral Chronic sinus bradycardia Restless leg Dyslipidemia Surgical History S/P cardiac cath S/P trigger finger release Hx of endoscopy S/P TURP Hx of tonsillectomy Hx of lithotripsy Hx of colonoscopy Family History Mother Arthritis Social History Household Members: Spouse Housing: House Do you presently have visiting nurse or other home services: No Alcohol intake: never Patient Tobacco Use Status: Never used Tobacco e-Cigarette/Vaping Use: Never Used service: Yes Current occupational status: retired 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 Review of Systems Const Details: Review of Systems Constitutional: Denies fever, chills, weight loss ENT: Denies vision changes, eye pain or eye redness, dental caries, dry mouth GI: Denies nausea, vomiting, diarrhea, abdominal pain, change in BM Pulm: Denies SOB, [place], hemoptysis, wheezing Cards: Denies chest pain, palpitations Skin: Denies Raynaud's, rash, nail changes, photosensitivity, PROFESSIONAL 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 Well appearing and in no apparent painful distress MSK Hands * Right Hand: Able to make a fist. No swelling but TTP of the 1st CMC, 2nd - 4th MCPs, and 2nd PIP with Herbedens nodes noted. Ulnar deviation of the 2nd PIP with the Herbedens nodes * Left Hand: Able to make a fist. No swelling but TTP of the 1st CMC, 2nd - 3rd MCPs, and 3rd PIP with Herbedens nodes noted. Wrists * Right Wrist: Full ROM. 70 degrees of wrist flexion, 80 degrees of wrist extension. No swelling or TTP * Left Wrist: Full ROM. 70 degrees of wrist flexion, 80 degrees of wrist extension. No swelling or TTP Elbows * Right Elbow: Full ROM. No swelling or TTP. No TTP of the medial and lateral epicondyles * Left Elbow: Full ROM. No swelling or TTP. No TTP of the medial and lateral epicondyles Shoulders * Right shoulder: Full ROM. No swelling noted. No TTP of the AC joint, subacromial bursa. TTP of the posterior shoulder joint * Left shoulder: Full ROM. No swelling noted. No TTP of the AC joint, subac romial bursa. TTP of the posterior shoulder joint Knees * Right knee: Full ROM. No swelling noted. TTP of the knee joint and pes anserine bursa * Left knee: Full ROM. No swelling noted. No TTP of the knee joint liene but TTP of the pes anserine bursa. Ankles * Right ankle: Good ankle dorsiflexion and plantar flexion. No swelling. No TTP of the ankle joint * Left ankle: Good ankle dorsiflexion and plantar flexion. No swelling. No TTP of the ankle joint Feet * Right foot: Negative squeeze test * Left foot: Negative squeeze test Tender points? * No tenderness to palpation of the bilateral trapezius, supraspinatus, anterior costochondral junctions, bilateral suboccipital muscle insertions SKIN No rashes Multiple bruises Vital Signs: Last Vital Signs Pulse 49 L 06/03/25 08:39 BP 130/70 06/03/25 08:39 Pulse Ox 96 06/03/25 08:39 Oxygen Delivery Method Room Air 06/03/25 08:39 BMI result Body Mass Index 26.0 Results Reviewed Results Reviewed: Laboratory Tests 05/26/25 09:09 WBC 8.2 RBC 3.33 L Hgb 11.2 L Hct 35.1 L Plt Count 144 L ESR 11 Sodium 145 Potassium 3.8 Chloride 111 H Carbon Dioxide 26 BUN 23 H Creatinine 1.28 AST 28 ALT 25 C-Reactive Protein < 0.04 25-OH Vitamin D Total 30.5 Immunology labs 07/11/22 12:12 Rheumatoid Factor < 15.0 Cycl Citrul Peptide IgG <16 VAIBHAV Screen NEGATIVE Infectious serologies 05/26/25 09:09 Hepatitis A IgM Ab Nonreactive Hep Bs Antigen Negative Hep Bs Antibody NONREACTIVE Hep B Core Total Ab Nonreactive Hepatitis C Ab (EIA) Nonreactive TB Test (T-Spot) Com Negative DEXA 10/2024 FINDINGS: The bone mineral density of the lumbar spine is 1.186 with a T-score of -0.3, and a Z-score of 0.8. This represents a BMD change of -5.7% compared to the prior exam. This is statistically significant. The bone mineral density of the left total hip is 0.702 with a T-score of -2.8, and a Z-score of -1.4. This represents BMD change of 5.2% compared to the prior exam. This is statistically significant. The bone mineral density of the left femoral neck is 0.753 with a T-score of -2.4, and a Z-score of -0.7. This represents BMD change of 3.3% compared to the prior exam. Assessment & Plan Assessment & Plan (1) Rheumatoid arthritis involving both hands with negative rheumatoid factor: Comment: dx 2017 (low titer +CCP negative on repeat) Methotrexate started 2017 reduced from 15 to 10 mg 12/12 due to cytopenias & CKD HCQ added 01/2024 DC 05/2024 ineffective Enbrel 01/2025 - 05/2025. Ineffective Code(s): M06.041 - Rheumatoid arthritis without rheumatoid factor, right hand; M06.042 - Rheumatoid arthritis without rheumatoid factor, left hand Category: Medical Plan: #Seronegative RA Patient is an 79-year-old male with seronegative rheumatoid arthritis here today for follow up. Currently on 10 mg of methotrexate and leucovorin due to anemia. Still has an increased tender joint count despite Enbrel SC for the past 4 months, will change medication to Humira Plan - Continue methotrexate 10mg weekly and leucovorin 10mg weekly - Stop Enbrel - Start Humira 40mg every 2 weeks - RTC 4 months - Labs before visit: CBC, CMP, ESR, CRP (2) Osteoarthritis of hands, bilateral: Code(s): M19.041 - Primary osteoarthritis, right hand; M19.042 - Primary osteoarthritis, left hand Category: Medical Qualifiers: Osteoarthritis type: primary Qualified Code(s): M19.041 - Primary osteoarthritis, right hand; M19.042 - Primary osteoarthritis, left hand Plan: #Bilateral Hand OA Patient with bilateral hand OA particularly 1st CMC joint and PIPs. Continues to get injections every 3 months from Orthopedics. Recommend to continue topical diclofenac 4 times a day (3) Osteoporosis: Comment: DEXA 10/2024: AP Spine -0.3, Left femur neck -2.4, Left femur total -2.8 DEXA 09/2022: AP Spine -0.4, Left femur neck -2.6, Left femur total -3.0 Alendronate since 2021 Code(s): M81.0 - Age-related osteoporosis without current pathological fracture Category: Medical Qualifiers: Osteoporosis type: age-related Presence of current pathological fracture: without current pathological fracture Qualified Code(s): M81.0 - Age- related osteoporosis without current pathological fracture Plan: #Osteoporosis Patient with osteoporosis and repeat DEXA done October 2024 shows improvement in his bone density. We will continue with alendronate Plan - Continue alendronate 70mg weekly - Consider drug holiday in 2026 - Vitamin D at next blood draw (4) Pseudogout: Code(s): M11.20 - Other chondrocalcinosis, unspecified site Category: Medical Plan: #Non crystal proven pseudo gout Patient with non crystal proven pseudogout. No flares since the last visit. (5) Encounter for methotrexate monitoring: Code(s): Z51.81 - Encounter for therapeutic drug level monitoring; Z79.631 - nursing home (current) use of antimetabolite agent Plan: #Long-term Current Use of Methotrexate Discussed with patient the benefits and risks of methotrexate for managing their rheumatic condition Benefits include reduced pain, reduced mortality, maintenance of remission and reduction of flares Risks include oral ulcers, photosensitivity, hepatotoxicity, hematologic toxicity, pneumonitis, flu-like symptoms (especially day after administration), nodulosis, lymphomas ? Limit alcohol and avoid Bactrim ? Monitoring: ?CBC, BMP, LFTs every 3-4 months and hepatitis serologies as needed Plan I spent 30 minutes reviewing the record and labs, taking a history, examining the patient, discussing the treatment plan, ordering diagnostic work up and documenting in the medical record Orders: Orders Complete Blood Count Auto Diff 4 Months Z79.899 - Other intermediate accountant (current) drug therapy C Reactive Protein 4 Months Z79.899 - Other snf (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 Panel 4 Months Z79.899 - Other intermediate accountant (current) drug therapy Erythrocyte Sedimentation Rate 4 Months Z79.899 - Other intermediate accountant (current) drug therapy Medications: New adalimumab (Humira(CF) Pen) 40 mg (0.4 mL) subcut Q2W 2 ea 5RF M06.041 - Rheumatoid arthritis without rheumatoid factor, right hand, M06.042 - Rheumatoid arthritis without rheumatoid factor, left hand Discontinued etanercept (Enbrel SureClick) Discontinued Reason: Doctor's Order 50 mg subcut QWEEK 4 mL 5RF M06.041 - Rheumatoid arthritis without rheumatoid factor, right hand, M06.042 - Rheumatoid arthritis without rheumatoid factor, left hand Coding Level of Care Code Est Pt Level 4 (61015) Complex EM visit Add On G2211 Diagnoses Rheumatoid arthritis involving both hands with negative rheumatoid factor M06.041; M06.042 Primary osteoarthritis of both hands M19.041; M19.042 Osteoarthritis type: primary Age-related osteoporosis without current pathological fracture M81.0 Osteoporosis type: age-related Presence of current pathological fracture: without current pathological fracture Pseudogout M11.20 Encounter for methotrexate monitoring Z51.81; Z79.631
[2025-06-03 08:39] VITALS: BP 130/70; PULSE 49; O2SAT 96; BMI 26.0
--- OUTSIDE RECORDS SUMMARY | 2025-06-03 08:39 | XMS_ITS | Clinical Summary ---
Author Organization [facility] Address [address] [place] [address] Care Team Providers Care Tenter Name Role Phone Adalbreto Zepeda PA-C Primary Care Provider Allergies Active [...] age to complete this topic Care Teams Tenter Relationship Specialty Start Date End Date Adalberto Zepeda, PAAndreeaC PCP - General Medical Services 08/15/21
== END 2025-06-03 09:16 | disposition home or self-care (01) ==
LOC: HO.RHES 08:30
PROVIDERS: PCP Physician Assistant Medical; Visit Provider Student in an Organized Health Care Education/Training Program
DX: M06.041 Rheumatoid arthritis without rheumatoid factor, right hand (principal); M06.042 Rheumatoid arthritis without rheumatoid factor, left hand; M19.041 Primary osteoarthritis, right hand; M19.042 Primary osteoarthritis, left hand; M81.0 Age-related osteoporosis without current pathological fracture; M11.20 Other chondrocalcinosis, unspecified site; Z51.81 Encounter for therapeutic drug level monitoring; Z79.631 Long term (current) use of antimetabolite agent
CPT/HCPCS: 99214

== ENCOUNTER → 2025-06-27 08:34 | Outpatient (REF) | payer MEDICARE, SELFPAY ==
--- OUTSIDE RECORDS SUMMARY | 2025-01-14 05:20 | XMS_ITS ---
Author Organization [facility] Address [address] [place] [address] Drive [address] [place] [phone] Care Team Providers Care Beauty School Instructor Name Role Phone Raman WARE, Vandana Primary Care Provider Unavail Eugene Hoang Jr Unavailable REASON FOR VISIT dysphagia Encounters Encounter Location Date Provider Diagnosis [facility] Outpatient [address] [place], [place] [phone] 01/14/2025 Eugene Iyer Jr Dysphagia R13.10 Assessments Encounter Date Diagnosis (ICD Code) Assessment Notes Treatment Notes Treatment Clinical Notes Section Notes 01/14/2025 Dysphagia (ICD-10 - R13.10) Plan Of Treatment Next Appt Details Provider Name:Eugene domingo Jr, 04/17/2026 09:40:00 AM, [address] [place] [address], [address], [place], [address], Progress Notes * KOFI STANLEYDOB:1945 (79 yo M)Acc No.[id number]:01/14/2025 EGD/MAC Patient: KOFI ETIENNE Provider: Fran Iyer MD :1945 A ge:79 Y S ex:Male Date:01/14/2025 Address:[place] Pcp:Vandana Camargo NP Subjective: * Chief Complaints: * 1 . Dysphagia. * Medical History: Objective: * Vitals: Assessment: * Assessment: 1. D ysphagia - R13.10 (Primary) Plan: * Treatment: * Procedure Codes: 4 3239 UPPER GI ENDOSCOPY, BIOPSY, 62275 ESOPH ENDOSCOPY, DILATION, Modifiers: 59 * * The named appointment provid er may or may not be the originator of this progress note, and it is not deemed complete until electronically signed by the appointment provider. Sign off status: Pending * Provider: Fran Iyer MD Date: 0 01/14/2025 Generated for Rona leung/Hesham/Petersonitting on: 0 06/27/2025 09:34 AM EDT
--- NOTE | 2025-06-27 08:39 | CA_ITS ---
Transthoracic Echocardiogram Patient (Last, First, Middle): Caleb Martínez, Gender: M Date of : 1945 Age: 79 Procedure Date: 06/27/2025 Procedure Type: Transthoracic Echocardiogram Location: OP Height: 175. cm Weight: 77.11 kg BSA: 1.93 m2 Heart Rate: 50 bpm BP: 132 / 65 mmHg Nursing Specialist: TATIANA Referring MD: Dioni Jacobson MD Symptoms: I35.0 - Nonrheumatic aortic (valve) stenosis Study Quality: Fair ECG Rhythm: Bradycardia Conclusions: - 1. Mildly reduced LV ejection fraction 45-50% with impaired relaxation filling pattern 2. Moderately dilated left atrium 3. Moderate aortic stenosis 4. Normal RV systolic pressure 5. Upper limits of normal ascending aortic size 6. No gross pericardial effusion Findings Left Ventricle Normal left ventricular cavity size. There is normal left ventricular wall thickness. The left ventricular systolic function is mildly decreased. The visually estimated ejection fraction is between 45-50%. Spectral Doppler is indicative of an impaired relaxation filling pattern. E/E prime ratio is between 8 and 15 consistent with indeterminate filling pressures. Right Ventricle Normal right ventricular cavity size and systolic function. Atria The left atrium is moderately dilated. Interatrial shunt cannot be excluded. The right atrium is normal in size. Aortic Valve There is moderate calcification of the aortic valve. There is moderate thickening of the aortic valve. There is moderate aortic valve stenosis. The peak aortic gradient is 31 mmHg.The mean gradient is 16 mmHg. The aortic valve area is 1.21 cm2. There is no aortic valve regurgitation. Mitral Valve There is mild anterior and posterior mitral leaflet thickening. There is trace mitral valve regurgitation. There is no mitral valve stenosis. Pulmonic Valve The pulmonic valve is likely normal. There is trace pulmonic valve regurgitation. Tricuspid Valve Normal tricuspid valve structure. There is trace tricuspid valve regurgitation. The right ventricular systolic pressure is 17 mmHg. Normal right atrial pressure. There is no evidence of pulmonary hypertension. Great Vessels The pulmonary artery was not well visualized. There is no dilatation of the ascending aorta measuring 3.50 cm. Small plaque is seen in the sino tubular ridge. Venous The inferior vena cava is normal in size and collapses greater than 50% with inspiration. Pericardium/Pleural There is no evidence of pericardial effusion. Prior Study Comparison Changes noted compared to prior study dated: 12/20/2024. LV ejection fraction has marginally improved Measurements 2D Linear Measurements IVSd: 1.05 0.6-0.9/0.6-1.0 cm LVIDd: 5.30 3.9-5.3/4.2-5.9 cm LVIDd Index: 2.75 2.4-3.2/2.2-3.1 cm/m2 LVIDs: 4.16 2.0-3.6 cm LVPWd: 1.17 0.7-1.1 cm LA Diam: 4.50 2.7-3.8/3.0-4.0 cm LAIDs Index: 2.33 1.5-2.3 cm/m2 LV Mass: 287.44 67-162/88-224 g LV Mass Index: 148.93 43-95/49-115 g/m2 LVOT Diam: 2.10 3.0+(-)1.3 cm 2D Systolic Function EF 4C: 51.90 >55% EF 2C: 48.90 >55% EF BiP: 49.50 >55% Mitral Valve MV Pk E: 0.57 MV PK A: 0.86 MV Decel Time: 339.00 E/A: 0.70 E'Lateral: 6.05 E'Medial: 5.26 E/E' Med: 10.90 E/E' Lat: 9.50 PHT: 99.00 MVA PHT: 2.22 Decel [place]: 1.69 Aortic Valve AoV Pk Jcarlos: 2.80 AoV Mn Jcarlos: 1.83 AoV VTI: 0.68 AoV Pk Grad: 31.00 Aov Mn Grad: 16.00 INDIRA Cont.VTI: 1.21 LVOT LVOT Pk Jcarlos: 0.87 LVOT Mn Jcarlos: 0.65 LVOT VTI: 0.24 LVOT Pk Grad: 3.00 LVOT Mn Grad: 2.00 LVOT Diam: 2.10 LVOT Area: 3.46 Diastolic Function MV Pk E: 0.57 MV Pk A: 0.86 E/A: 0.70 E'Medial: 5.26 E/E' Med: 10.90 E' Laterial: 6.05 E/E' Lat: 9.50 Right Ventricle TAPSE (mm): 18.90 TVS' Jcarlos: 12.40 Tricuspid Valve TR Pk Jcarlos: 1.87 TR Pk Grad: 14.00 RA Press: 3.00 RVSP: 17.00 Great Vessels Aorta Sinus of Valsalva: 3.50 2.0-3.5 cm Ao Asc: 3.50 2.1-3.4 cm Pulmonary Veins Pulm Vein S/D 1.30 Pulmonary Valve PV Pk Jcarlos: 1.19 Peak PV Grad: 6.00 Updated in Other Vendor System with Status of Final Danish Kohler MD electronically signed on 06/28/2025 11:28:39 AM with status of Final
--- OUTSIDE RECORDS SUMMARY | 2025-06-27 09:34 | XMS_ITS | Clinical Summary ---
Author Organization [facility] Address [address] [place] [address] Care Team Providers Care Acquisition Advisor Name Role Phone Adalberto Zepeda PA-C Primary [...] Additional history exists COVID-19 Vaccine ( season) 2025 07/01/2022, 07/18/2021, 12/10/2020, Additional history exists Influenza [...] age to complete this topic Care Teams Acquisition Advisor Relationship Specialty Start Date End Date Adalberto Zepeda, PAAndreeaC PCP - General Medical Services 08/15/21
--- OUTSIDE RECORDS SUMMARY | 2025-06-27 09:34 | XMS_ITS ---
Author Organization [facility] Address [address] [place] [address] Phone Care Team Providers Care Metal Refiner Name Role Phone Adalberto Zepeda Primary Care Provider [phone] Table Maker Care Management Status:Ongoing (Active) Start date:05/19/2025 Enrollment date:05/27/2025 Enrollment reason:Referred by Care Team Overview Referral by Josephine - dayna patient - depressed, in asst living, connected Case Team Name Relationship Phone Filomena Gagandeep JONES Control Operator(Responsible St aff) [phone] Continued Care and Services Coordination
--- OUTSIDE RECORDS SUMMARY | 2025-06-27 09:34 | XMS_ITS | Clinical Summary ---
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 Active carbidopa-levo dopa (SINEMET) 25-100 mg per tablet Take 1 tablet by mouth 6 (six) times a day. 06/09/20 20 Active doxycycline (VIBRAMYCIN) 100 mg capsule 12/27/19 23 Active entacapone (COMTAN) 200 mg tablet Take 1 tablet (200 mg total) by mouth 6 (six) times a day. 08/02/20 22 Active folic acid (FOLVITE) 1 mg tablet Take 1 tablet (1 mg total) by mouth 1 (one) time each day. 05/22/20 21 Active ketoconazole (NIZORAL) 2 % cream Apply 1 Application topically 2 (two) times a day. Active lidocaine 0.5% (SOLARCAINE) 0.5 % gel external gel Apply 5 g topically 2 times daily as needed. 08/22/20 21 Active LORazepam (ATIVAN) 0.5 mg tablet Take 1 tablet (0.5 mg total) by mouth 1 (one) time each day. 08/02/20 22 Active methotrexate 2.5 mg tablet Take 6 [...] AFTER YOU TAKE METHOTREXATE 06/03/20 24 Active QUEtiapine (SEROquel) 100 mg tablet Take 1 tablet (100 mg total) by mouth at bedtime. Active amLODIPine (NORVASC) 5 mg tablet Take 1 tablet (5 mg total) by mouth 1 (one) time each day. 90 tablet 3 12/28/19 25 Active atorvastatin (LIPITOR) 20 mg tablet TAKE 1 TABLET DAILY 90 tablet 3 03/02/20 25 Active Additional Information Patient taking differently: 40 mgoral Daily, Reported on 06/01/2025 lisinopril (PRINIVIL,ZEST RIL) 40 mg tablet TAKE 1 TABLET DAILY 90 tablet 3 03/02/20 25 Active omeprazole (PriLOSEC) [address] capsule TAKE 1 CAPSULE TWICE DAILY 180 capsule 1 03/15/20 25 Active doxycycline (ADOXA) 100 mg tablet Take 1 tablet (100 mg total) by mouth 2 (two) times a day. 025 Discontinued hydroxychloroq uine (PLAQUENIL) 200 mg tablet TAKE 1 TAB TWICE DAILY X5 DAYS A WEEK AND 1 TAB DAILY X2 DAYS A WEEK 02/05/20 24 025 Discontinued melatonin 3 mg tablet Take 1 tablet (3 mg total) by mouth at bedtime. 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 limited to breakdown of skin ([facility] V24, [facility] V28) 08/25/2024 Essential (primary) hypertension 08/25/2024 Wound infection 08/25/2024 Painful skin lesion 08/15/2021 Parkinson's disease ([facility] V24, [facility] V28) 1 11/28/2018 Essential tremor 08/16/2019 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 Benign prostatic hyperplasia without lower urinary tract symptoms 12/24/2017 Bradycardia 12/24/2017 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 UPPER GASTROINTESTINAL ENDOSCOPY 02/27/2018 PROCEDURE: PA UPPER GI ENDOSCOPY PERFORMED; COMMENT: Normal upper [...] care for your loved ones. For example, children's choir director or elderly care for an older [...] Sign Reading Time Taken Comments Blood Pressure 123/69 06/01/2025 10:31 AM EDT Pulse 62 06/01/2025 10:31 AM EDT Temperature 36.8 C (98.3 F) 06/01/2025 10:31 AM EDT Respiratory Rate 14 12/27/2024 12:32 PM EDT Oxygen Saturation 98% 06/01/2025 10:31 AM EDT Inhaled Oxygen Concentration - - Weight 77.8 kg (171 lb 9.6 oz) 06/01/2025 10:31 AM EDT Height 177.8 cm (5' 10 ) 12/27/2024 12:32 PM EDT Body Mass Index 24.62 12/27/2024 12:32 PM EDT Plan of Treatment Upcoming Encounters Date Type Department Care Team (Late st Contact Info) Description 07/04/2025 10:30 AM EDT Office Visit Adult Medicine [address] [phone] Adalberto Zepeda, YASMIN [address] [place] [phone] 06/01/2026 9:15 AM EDT Office Visit [facility] Hematology Oncology [address] [place] [phone] JimenezKatja Howell MD [address] [place] [phone] Health Maintenance Due Date Last Done Comments Medicare Annual Wellness Visit 09/28/2022 COVID-19 Vaccine ( season) 2025 07/01/2022, 07/18/2021, 12/10/2020, Additional history exists Influenza Vaccine (#1) 2025 , 07/02/2024, 08/20/2023, Additional history exists Hypertension/CHF/CAD Annual BMP Blood [...] Date/Time Associated Diagnosis Comments EXTERNAL CLINICAL LAB 05/26/2025 EXTERNAL CLINICAL LAB 05/26/2025 from Last 3 Months Results * External clinical lab (05/26/2025) Only the most recent of2 resultswithin the time period is included. Provider [facility] BLOOD ORDERABLES Fin al Result from Last 3 Months Additional Health Concerns Active Problems Noted Date Diagnosed Date Impaired Tissue 09/02/2024 Education needed on impact of smoking on wound 1 11/02/2023 Education needed related to ulceration/compromised skin integrity. 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
--- OUTSIDE RECORDS SUMMARY | 2025-06-27 09:34 | XMS_ITS | Patient Health Record ---
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 Phone Raman WARE, Vandana Primary Care Provider Unavail able Eugene Iyer Jr Unavailable [phone] Allergies Allergen (clinical drug ingredient) Drug/Non Drug [...] Pathology Reviewed date:01/22/2025 03:35:39 PM Interpretation: Performing Lab:[facility], [address] [place] [phone] Notes/Report: Reason For Referral Referring Provider First Name Vandana Referring Provider Last Name Raman Referred Organization [facility] Referred Provider Eugene Iyer Jr Referred Address [address] [place] [phone],[place] Referred Provider Specialty Gastroentero logy Referral Priority Routine Referring Provider First Name Vandana Referring Provider Last Name Raman Referred Organization [facility] Referred Provider Eugene Iyer Jr Referred Address [address] [place] [phone],[place] Referred Provider Specialty Gastroentero logy General Notes Dorcas Diallo 2024 08:47:06 AM >[facility] Ref[facility] Priority Routine Medications Medication SIG (Take, Route, Frequency, Duration) Notes Start Date End Date Status Doxycycline Hyclate 100 MG Oral for 30 Active predniSONE 10 MG 1 tablet Orally Once a day for 30 day(s) as needed for inflamation Active Omeprazole 20 MG Oral for 90 A ctive Mupirocin 2 % 1 application Externally Twice a day for 5 day(s) Active Leucovorin Calcium 10 MG TAKE 2 TABLETS BY MOUTH ONCE A WEEK THE DAY AFTER METHOTREXATE Oral for 84 Active rOPINIRole HCl 2 MG 1 tablet 1 to 3 hours before bedtime Orally Once a day for 30 day(s) Active Tamsulosin HCl 0.4 MG Oral for 90 Active amLODIPine Besylate 5 MG TAKE 1 TABLET BY MOUTH 1 TIME EACH DAY. Oral for 14 Active QUEtiapine Fumarate ER 150 MG 1 tablet in the evening Orally Once a day for 30 day(s) 04/13/2025 Active Atorvastatin Calcium 40 MG TAKE 1 TABLET BY MOUTH EVERY DAY Oral for 20 Active traZODone HCl 100 MG 1 tablet at bedtime Orally Once a day for 30 day(s) Active Aspirin 81 81 MG 1 tablet Orally Once a day for 30 day(s) 12/01/2024 Active PARoxetine HCl 30 MG 1 tablet in the morning Orally Once a day for 30 day(s) Active Entacapone 200 MG 1 tablet Orally Twice a day for 30 day(s) Active Lisinopril 40 MG Oral for 90 A ctive Carbidopa 25 MG 1 tablet Orally Three times a day for 30 day(s) Active Methotrexate Sodium 2.5 MG Oral for 84 Active buPROPion HCl ER (XL) 300 MG 1 tablet in the morning Orally Once a day for 30 day(s) Active Omeprazole 40 MG 1 capsule 1/2 to 1 hour before morning meal Orally Once a day for 30 days 01/22/2025 Active Alendronate Sodium 70 MG Oral for 84 Active Enbrel SureClick 50 MG/ML Subcutaneous for 28 Days Active Immunizations Vaccine Route Administration Date Status [...] Problem Status W/U Status Risk Notes Problem 413069963 Long-term use of aspirin therapy (Z79.82) Active confirmed Problem 45624329 Dysphagia, unspecified type (R13.10) Active confirmed Problem 870825264 Gastroesophageal reflux disease, unspecified whether esophagitis present (K21.9) Active confirmed Vital Signs Temperature 98.0 degrees Fahrenheit 04/13/2025 Blood pressure diastolic 01 mm Hg 04/13/2025 Height 70 in 04/13/2025 Blood pressure systolic 001 mm Hg 04/13/2025 Weight 166.4 lbs 04/13/2025 BMI 23.87 kg/m2 04/13/2025 Encounters Encounter Location Date Provider Diagnosis [facility] [address] [place] [id number] 01/14/2025 Eugene Iyer Jr Dysphagia R13.10 [facility] [address] [place] [phone] 12/01/2024 Eugene Iyer Jr Dysphagia, unspecified type R13.10 ; Long-term use of aspirin therapy Z79.82 and Gastroesophageal reflux disease, unspecified whether esophagitis present K21.9 [facility] [address] [place] [phone] 04/13/2025 Eugene Iyer Jr Gastroesophageal reflux disease, unspecified whether esophagitis present K21.9 and Dysphagia, unspecified type R13.10 [facility] [address] [place] [phone] 01/14/2025 Eugene Iyer Jr [facility] [address] [place] [phone] 01/22/2025 Eugene Iyer Jr [facility] [address] [place] [phone] 04/20/2025 Eugene Iyer Jr Assessments Encounter Date Diagnosis [...] stop aspirin one week before the procedure. 04/13/2025 Gastroesophageal reflux disease, unspecified whether esophagitis present (ICD-10 - K21.9) We discussed gastroesophageal reflux disease and erosive esophagitis. We discussed dysphagia. We recommend that he continue proton pump inhibitor therapy at a dose of 40 mg daily. This should help his erosive esophagitis. The etiology of his dysphagia needs to be further evaluated and if he has not had a recent MBS [facility]. Some of his dysphagia may be related to his underlying Parkinson's disease and we discussed this today. [facility]. Follow-up will be pending these results. Today's visit was 30 minutes. 12/01/2024 Gastroesophageal reflux disease, unspecified whether esophagitis [...] stop aspirin one week before the procedure. 04/13/2025 Dysphagia, unspecified type (ICD-10 - R13.10) We discussed gastroesophageal reflux disease and erosive esophagitis. We discussed dysphagia. We recommend that he continue proton pump inhibitor therapy at a dose of 40 mg daily. This should help his erosive esophagitis. The etiology of his dysphagia needs to be further evaluated and if he has not had a recent MBS this [facility]. Some of his dysphagia may be related to his underlying Parkinson's disease and we discussed this today. [facility]. Follow-up will be pending these results. Today's visit was 30 minutes. Plan Of Treatment Future Test Test Name Order Date UPPER GI ENDOSCOPY 12/01/2024 Next Appt Details Provider Name:Eugene Juaquin domingo Jr, 04/17/2026 09:40:00 AM, [address] [place] [address], [address], [place], [phone], Insurance Providers Payer Name Payer Address Payer Phone Subscriber Number Group Number Insured Name Patient Relationship to Insured Coverage Start Date Coverage End Date [facility] [employer] [address] [place] [address] [id number] KOFI STANLEY Self - patient is the insured Medical (General) History Medical History History ICD Code hypertension Cardiomyopathy/bradycardia/ASCVD PTSD/anxiety/depression Hypertension Hyperlipidemia Parkinson's disease Hyperlipidemia Rheumatoid/osteoarthritis Chronic kidney disease EGD 01/14/2025 for dysphagia, erosive esophagitis with mild narrowing of the EG junction balloon dilated to 20 mm 5 cm hiatal hernia biopsies negative for Cannon's esophagus and H. pylori Surgical History Surgery Date(Month/Year) Lithotripsy for nephrolithiasis colonoscopy 2019, [place] Tonsillectomy
== END ==
LOC: HO.CARD 08:34
PROVIDERS: PCP Physician Assistant Medical; Visit Provider Internal Medicine
DX: I35.0 Nonrheumatic aortic (valve) stenosis (principal)
CPT/HCPCS: 93306

== ENCOUNTER → 2025-06-27 08:39 | Outpatient (BNV) | payer MEDICARE, SELFPAY | PROVIDERS: PCP Physician Assistant Medical; Visit Provider Internal Medicine Cardiovascular Disease | DX: I35.0 Nonrheumatic aortic (valve) stenosis (principal); I51.7 Cardiomegaly | CPT/HCPCS: 93306 ==

== ENCOUNTER 2025-07-28 08:29 | Outpatient (AMB) | payer MEDICARE, SELFPAY ==
[2025-07-28 08:53] VITALS: BP 108/62; PULSE 68; BMI 24.7
--- NOTE | 2025-07-28 08:53 | A.OFFVIS_ITS ---
Vital Signs 07/28/25 08:53 Height 5 ft 8 in Weight 162 lb 4.163 oz BMI 24.7 BP 108/62 Blood Pressure Location Lt brachial Position Sitting Pulse 68 Pulse Source Monitor Intake Visit Reasons: f/up rs from 07/11/25 Ortho/Prosthetic Aide Required: No Accompanied by: Self / Same As Patient Allergies sertraline Allergy (Intermediate, Verified 07/28/25 08:56) nausea,dizziness acetaminophen (From Percocet) Allergy (Unknown, Verified 07/28/25 08:56) unknown amoxicillin Allergy (Unknown, Verified 07/28/25 08:56) unknown erythromycin base Allergy (Unknown, Verified 07/28/25 08:56) unknown minocycline Allergy (Unknown, Verified 07/28/25 08:56) unknown oxycodone (From Percocet) Allergy (Unknown, Verified 07/28/25 08:56) unknown polymyxinb tmp Allergy (Intermediate, Uncoded 04/26/25 11:11) swelling, rash Medication List - Last Reconciled 07/28/25 by Dioni Jacobson MD adalimumab (Humira(CF) Pen) 40 mg (0.4 mL) subcut Q2W alendronate 70 mg PO QWEEK amlodipine 10 mg PO DAILY ammonium lactate 12% 1 appl topical DAILY aspirin 81 mg PO DAILY atorvastatin 40 mg PO DAILY baclofen 10 mg PO BEDTIME bupropion HCl 200 mg PO DAILY carbidopa-levodopa 25-100 mg 1.5 tabs at 7am,1pm,7pm , 1 tab at 10am,4pm,10pm orally 6 X A DAY; diclofenac sodium 1% 4 grams topical QID entacapone administer at the same time as l-dopa/carbidopa dose Frequency: 6 x a day with carbi leucovorin calcium 20 mg (2 x 10 mg) PO QWEEK lisinopril 40 mg PO DAILY methotrexate sodium 10 mg (4 x 2.5 mg) PO QWEEK 90 days metronidazole 0.75% 1 appl topical DAILY omeprazole 20 mg PO DAILY paroxetine HCl (Paxil) 10 mg PO DAILY quetiapine 100 mg PO BEDTIME ropinirole 2 mg PO BID tamsulosin 0.4 mg PO BEDTIME HPI Comments Details: Caleb returns for follow-up. In the past, he was having some shortness of breath, but no clear anginal-type chest pains. Echocardiogram with mildly decreased LVEF of around 52%. He also had an abnormal stress test showing anterior wall ischemia. That led to cardiac catheterization. However, no interventions. He also has history of Parkinson's disease. Overall, feels just about the same as before. He does get some random pains but I am not entirely clear if it is more arthritic than angina. Also has Parkinson's and many other comorbidities. [facility] Medical History (Updated 06/03/25 @ 09:04 by Guillermina Wise MD) Neck pain 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 Gout Footdrop BPH (benign prostatic hyperplasia) Hypertension Diverticulosis Thrombocytopenia Acid reflux Basal cell carcinoma Cholelithiasis Nephrolithiasis PTSD (post-traumatic stress disorder) Parkinsons Osteoarthritis of hands, bilateral Chronic sinus bradycardia Restless leg Dyslipidemia Surgical History S/P cardiac cath S/P trigger finger release Hx of endoscopy S/P TURP Hx of tonsillectomy Hx of lithotripsy Hx of colonoscopy Family History Mother Arthritis Social History Household Members: Spouse Housing: House Do you presently have visiting nurse or other home services: No Alcohol intake: never Patient Tobacco Use Status: Never used Tobacco e-Cigarette/Vaping Use: Never Used service: Yes Current occupational status: retired 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 Review of Systems Const Denies daytime sleepiness, Denies difficulty sleeping, Denies snoring, Denies stops breathing during sleep and Denies weakness Card Denies chest pain, Denies rapid heart rate, Denies irregular heart rhythm, Denies claudication, Denies leg edema, Denies lightheadedness, Reports palpitations, Denies dyspnea, Denies dyspnea on exertion, Denies orthopnea, Denies paroxysmal nocturnal dyspnea and Denies slow heart rate Resp Denies cough, Denies dyspnea, Denies dyspnea on exertion and Denies snoring GI Reports no additional complaints, Denies hematochezia, Denies change in stool character and Denies dyspepsia Musc Denies abnormal gait, Denies muscle weakness and Denies numbness Neuro Denies abnormal gait, Denies numbness and Denies weakness Endo Reports palpitations Physical Exam Vital Signs: Last Vital Signs Pulse 68 07/28/25 08:53 BP 108/62 07/28/25 08:53 BMI result Body Mass Index 24.7 Const General: comfortable and no acute distress Orientation/consciousness: patient oriented x3 HEENT Other: Unremarkable Head: Yes normal to inspection Neck Neck: Yes normal visual inspection Chest Chest palpation & inspection: normal inspection of the chest Resp Auscultation: clear to auscultation bilaterally Cardio Palpation: normal PMI Heart sounds: S1 normal heart sound present, S2 normal heart sound present, no gallops, Murmur heart sound present systolic II/ and no rubs GI Palpation (GI): Soft to palpation Back/Spine/Pelvis Other: unremarkable Skin General skin exam: no rashes or lesions noted Neuro General: patient oriented x3 Extrem General: Yes normal to inspection Psych Mental Status: mental status grossly normal Office Procedures EKG Details: EKG with sinus rhythm at 68/Min; cannot exclude old septal infarct; normal CO and corrected QT; PVCs. [id number], Complete Assessment & Plan Assessment & Plan (1) Atherosclerotic cardiovascular disease: Code(s): I25.10 - Atherosclerotic heart disease of [place] coronary artery without angina pectoris Category: Medical (2) Cardiomyopathy: Code(s): I42.9 - Cardiomyopathy, unspecified Category: Medical (3) Nonrheumatic aortic (valve) stenosis: Code(s): I35.0 - Nonrheumatic aortic (valve) stenosis Category: Medical Plan Cardiac studies reviewed. In the most recent echocardiogram, LVEF is 45-50%. Reported moderate aortic stenosis. Myocardial perfusion imaging study 11/2023 with [id number] intensity anterior wall ischemia. Cardiac catheterization from 11/2023 with severe stenosis in a small branch from ramus and ostial OM1. Small vessels. Mild diffuse disease with heavy calcification, proximal LAD. Medical management has been recommended. Overall, continue medical therapy. Continue aspirin and statins. Last LDL 83 mg/dL. For hypertension, on lisinopril/amlodipine. We will see him back in one year with an echocardiogram. Orders: Orders CA echo transthoracic complete 1 Year I35.0 - Nonrheumatic aortic (valve) stenosis Coding Level of Care Code Est Pt Level 4 (96698) Complex EM visit Add On G2211 Diagnoses Atherosclerotic cardiovascular disease I25.10 Cardiomyopathy I42.9 Nonrheumatic aortic (valve) stenosis I35.0 CPT Codes EKG - CPT: 35645-[id number], Complete ([id number])
== END 2025-07-28 09:15 | disposition home or self-care (01) ==
LOC: HO.HCS 08:30
PROVIDERS: PCP Physician Assistant Medical; Visit Provider Internal Medicine
DX: I25.10 Atherosclerotic heart disease of native coronary artery without angina pectoris (principal); I42.9 Cardiomyopathy, unspecified; I35.0 Nonrheumatic aortic (valve) stenosis
CPT/HCPCS: 93010; 99214; G2211

== ENCOUNTER → 2025-07-28 08:29 | Outpatient (BNVA) | payer MEDICARE, SELFPAY | PROVIDERS: PCP Physician Assistant Medical; Visit Provider Internal Medicine | DX: I25.10 Atherosclerotic heart disease of native coronary artery without angina pectoris (principal); I42.9 Cardiomyopathy, unspecified; I35.0 Nonrheumatic aortic (valve) stenosis; I49.3 Ventricular premature depolarization; R94.31 Abnormal electrocardiogram [ECG] [EKG] | CPT/HCPCS: 93005; 99212 ==

== ENCOUNTER 2025-08-16 01:53 | Emergency (ER) | payer MEDICARE, SELFPAY ==
--- OUTSIDE RECORDS SUMMARY | 2025-01-14 05:20 | XMS_ITS ---
Author Organization [facility] Address [address] [place] [address] Drive [address] [place] [address] Care Team Providers Care Encyclopedia Research Worker Name Role Phone Raman WARE, Vandana Primary Care Provider Unavail Eugene Hoang Jr Unavailable REASON FOR VISIT dysphagia Encounters Encounter Location Date Provider Diagnosis [facility] [place] [address] [place], [place] [phone] 01/14/2025 Eugene Iyer Jr Dysphagia R13.10 Assessments Encounter Date Diagnosis (ICD Code) Assessment Notes Treatment Notes Treatment Clinical Notes Section Notes 01/14/2025 Dysphagia (ICD-10 - R13.10) Plan Of Treatment Next Appt Details Provider Name:Eugene domingo Jr, 04/17/2026 09:40:00 AM, [address] [place] [address], [address], [place], [address], Progress Notes * KOFI STANLEYDOB:1945 (79 yo M)Acc No.[id number]:01/14/2025 EGD/MAC Patient: KOFI ETIENNE Provider: Fran Iyer MD :1945 A ge:79 Y S ex:Male Date:01/14/2025 Address:[place] Pcp:Vandana Camargo NP Subjective: * Chief Complaints: * 1 . Dysphagia. * Medical History: Objective: * Vitals: Assessment: * Assessment: 1. D ysphagia - R13.10 (Primary) Plan: * Treatment: * Procedure Codes: 4 3239 UPPER GI ENDOSCOPY, BIOPSY, 23447 ESOPH ENDOSCOPY, DILATION, Modifiers: 59 * * The named appointment provid er may or may not be the originator of this progress note, and it is not deemed complete until electronically signed by the appointment provider. Sign off status: Pending * Provider: Fran Iyer MD Date: 0 01/14/2025 Generated for Rona leung/Hesham/Petersonitting on: 1 02:29 AM EDT
--- OUTSIDE RECORDS SUMMARY | 2025-08-11 12:45 | XMS_ITS | Encounter Summary ---
Author Organization [facility] Address [address] [place] [address] Care Team Providers Care Tape Coater Name Role Phone Adalberto Zepeda Primary Care Provider [phone] Reason for Referral * Consultation (Urgent) - Closed Specialty Diagnoses / Procedures Referred By Contac t Referred To Contact Urology Diagnoses Scrotal abscess Radha Carroll PA [address] [place] [address] Phone: tel: fax: [facility] [address] [address] Phone: tel: fax: Referral ID Status Reason Start Date Expiration Date V isits Requested Visits Authorized [id number] Closed Specialty Services Required 08/11/2025 08/11/2026 1 1 * Imaging (Routine) - Pending Review Specialty Diagnoses / Procedures Referred By Contac t Referred To Contact Radiology Diagnoses Scrotal abscess Procedures US Scrotum and Contents Radha Carroll PA [address] [place] [address] Phone: tel: fax: [address] Phone: tel: Referral ID Status Reason Start Date Expiration Date V isits Requested Visits Authorized [id number] Pending Review 08/11/2025 08/11/2026 1 1 * Imaging (Routine) - Pending Review Specialty Diagnoses / Procedures Referred By Contac t Referred To Contact Radiology Diagnoses Night sweats Procedures CT Chest w Contrast Radha Carroll PA [address] [place] [address] Phone: tel: fax: [address] Phone: tel: Referral ID Status Reason Start Date Expiration Date V isits Requested Visits Authorized [id number] Pending Review 08/11/2025 08/11/2026 1 1 * Imaging (Routine) - Pending Review Specialty Diagnoses / Procedures Referred By Contac t Referred To Contact Radiology Diagnoses Night sweats Procedures CT Abdomen Pelvis w Contrast Radha Carroll PA [address] [place] [address] Phone: tel: fax: [address] Phone: tel: Referral ID Status Reason Start Date Expiration Date V isits Requested Visits Authorized [id number] Pending Review 08/11/2025 08/11/2026 1 1 Reason for Visit * Reason Comments Follow-up 4 wk f/u night sweat s Encounter Details Date Type Department Care Team (Late st Contact Info) Description 08/11/2025 12:45 PM EDT Office Visit Adult Medicine [address] [phone] Radha Carroll PA [address] [place] [address] Night sweats (Primary Dx); Extramammary Paget disease; Scrotal abscess Social History Tobacco Use Types Packs/Day Years Used Date Smoking Tobacco: Never Smokeless Tobacco: Never Tobacco Cessation:Counseling Given: Not Answered Alcohol Use Standard Drinks/Week Comments Not Currently 0 (1 standard drink = 0.6 oz [...] for your loved ones. For example, children's entertainer or elderly care for an older adult? [...] Date Recorded What is your living situation? Unrecognized valu e 12/20/2024 Sex and Gender Information Value Date Recorded Sex Assigned at Not on file Legal Sex Male 6:54 PM EST Gender Identity Not on file Sexual Orientation Not on file documented as of this encounter Last Filed Vital Signs Vital Sign Reading Time Taken Comments Blood Pressure 100/58 08/11/2025 12:58 PM EDT Pulse 75 08/11/2025 12:58 PM EDT Temperature 36.2 C (97.1 F) 08/11/2025 12:58 PM EDT Respiratory Rate 13 08/11/2025 12:58 PM EDT Oxygen Saturation 96% 08/11/2025 12:58 PM EDT Inhaled Oxygen Concentration - - Weight 74.1 kg (163 lb 6.4 oz) 08/11/2025 12:58 PM EDT Height 172.7 cm (5' 8 ) 08/11/2025 12:58 PM EDT Body Mass Index 24.84 08/11/2025 12:58 PM EDT documented in this encounter Ordered Prescriptions Prescription Sig Dispense Quantity Refills Last Filled Start Date End Date sulfamethoxazole-t rimethoprim (BACTRIM DS,SEPTRA DS) 800-160 mg per tablet Take 1 tablet by mouth 2 (two) times a day for 7 days. 14 each 08/11/2025 08/18/2025 documented in this encounter Progress Notes * YASMIN Monroy - 08/11/2025 12:45 PM EDT CHIEF COMPLAINT: Follow-up (4 wk f/u night sweats) IDENTIFIER: Caleb Martínez is a 79 y.o. old male. HPI: Patient is an 79-year-old male who presents to the office today for ongoing evaluation of drenchingsweats. He was last seen 07/05/2025. See history from that note. He continues to have night sweats, has been going on for total of 2 months now. No fever. He is following with Dr. Hilton for extramammary Paget's. He does complain of drenching night sweatsfor the last month. Reports that he wakes up 2 times in the middle the night to change his clothing. He denies any coughing, wheezing, or shortness of breath. Denies unintentional weight loss. No abdominal pain or distention. No changes in bowel habit or stool caliber. No rectal bleeding. No enlarged lymph nodes. No fever or chills. No acute URI symptoms. No recent illnesses. External TB spot testing negative on 05/26/2025. Never smoker. No alcohol use. No drug use. He also complains of an ulcer with drainage and pain on the left side of his scrotum x 1 week. He is , not concerned about STDs. ROS: GENERAL: See HPI HEENT: No changes in hearing or vision, nose bleeds or other nasal problems NECK: No lumps, goiter, pain or significant neck swelling RESPIRATORY: No cough, wheezing or shortness of breath CARDIOVASCULAR: No chest pain, leg swelling or palpitations GI: No abdominal discomfort, blood in stools or black stools : No dysuria, frequency or incontinence MUSCULOSKELETAL: No joint pain or swelling, back pain, or muscle pain SKIN: See HPI NEURO: No persistent headache PAST MEDICAL HISTORY: Patient Active Problem List Diagnosis Date Noted Blister of lower leg, right, initial encounter 07/26/2025 PTSD (post-traumatic stress disorder) 07/05/2025 Anxiety 07/05/2025 Chronic venous hypertension (idiopathic) with inflammation of left lower extremity 08/25/2024 Non-pressure chronic ulcer of other part of left lower leg limited to breakdown of skin ([facility] V24, [facility] V28) 08/25/2024 Essential (primary) hypertension 08/25/2024 Wound infection 08/25/2024 Painful skin lesion 08/15/2021 Parkinson's disease ([facility] V24, [facility] V28) 09/27/2019 Essential tremor 08/16/2019 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 Benign prostatic hyperplasia without lower urinary tract symptoms 12/24/2017 Bradycardia 12/24/2017 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 rate 13, height 1.727 m (68 ), weight 74.1 kg (163 lb 6.4 oz), SpO2 96%. Body mass index is 24.84 kg/m??. BMI is 18.5 to 24.9 (within the normal range) and will be followed APPEARANCE: Alert and in no acute distress NECK: Neck supple, no adenopathy, thyroid symmetric and of normal size HEART: RRR with normal S1 and S2, no murmurs, no gallops LUNG: Clear to auscultation ABDOMEN: Bowel sounds normoactive, soft, non-tender, without organomegaly or palpable masses EXTREMITIES: No edema NEURO: Awake, alert and oriented x 3 SKIN/SCROTUM: Left testicle with erythema, TTP and abscess noted. No warmth, red streaking This documentation confirms that Valerie Chisholm MA was the taxation accountant for patient on their office visit. LABS: Lab Results Component Value Date NA 141 07/06/2025 K 4.3 07/06/2025 CL 108 07/06/2025 CO2 27 07/06/2025 GLUCOSE 92 07/06/2025 BUN 29 (H) 07/06/2025 CREATININE 1.27 07/06/2025 CALCIUM 9.1 07/06/2025 PROT 6.4 07/06/2025 ALBUMIN 3.8 07/06/2025 ALBUMIN 3.9 07/06/2025 BILITOT 0.9 07/06/2025 AST 22 07/06/2025 ALT 31 07/06/2025 ALKPHOS 69 07/06/2025 EGFR 57 (L) 07/06/2025 Lab Results Component Value Date TSH 3.21 07/06/2025 Lab Results Component Value Date WBC 6.8 07/06/2025 HGB 12.3 (L) 07/06/2025 HCT 37.3 (L) 07/06/2025 MCV 103.0 (H) 07/06/2025 PLT 172 07/06/2025 Component Latest Ref Rng 07/06/2025 Testosterone 229 - 902 ng/dL 611 Testosterone, Free 0.6 - 7.3 ng/dL 7.0 Testosterone, Bioavailable 15 - 150 ng/dL 149 Sex Hormone Binding See Comment nmol/L 82.0 Albumin 3.2 - 5.0 g/dL 3.9 Cortisol mcg/dL 9.4 IMAGING: HISTORY: night sweats TECHNIQUE: PA and lateral radiographs of the chest COMPARISON: None FINDINGS: There is a normal cardiomediastinal silhouette. The lungs are clear. Moderate degenerative changes of the thoracic spine. Calcifications overlying the right upper quadrant. IMPRESSION: 1. No acute cardiopulmonary process. If further evaluation is necessary, consider CT chest 2. Calcifications overlying the right upper quadrant which could represent gallstones. Consider right upper quadrant ultrasound if clinically indicated IMPRESSION/PLAN: 1. Night sweats CT Abdomen Pelvis w Contrast CT Chest w Contrast 2. Extramammary Paget disease 3. Scrotal abscess US Scrotum and Contents Ambulatory referral to Urology Medication and lab orders: Orders Placed This Encounter Procedures CT Abdomen Pelvis w Contrast CT Chest w Contrast US Scrotum and Contents Ambulatory referral to Urology Other orders: CT ABDOMEN PELVIS W CONTRAST CT CHEST W CONTRAST US SCROTUM AND CONTENTS AMB REFERRAL TO UROLOGY Patient has persistent night sweats x 2 months. He is waking up drenched in sweats twice nightly. Initial workup unremarkable including testosterone, cortisol, CBC, TSH, CMP and chest x-ray. He has ahistory of extramammary Paget disease. Will order a CT scan with contrast of the abdomen, pelvis and chest. Advised him to reach out to Dr. Hilton as well. Scrotal abscess x [address] Alcala today. Prescribed Bactrim 1 tab twice daily x 7days. Discussed side effects. He understands to hold methotrexate and lisinopril with Bactrim. Scrotal ultrasound ordered. Referral sent to urology. I have applied the code G2211 to this patient???s visit as the primary care provider dealing with (see above issues) leading to the extensive work up, and management associated with the medical care of this patient. I have reviewed all information as it pertains to the management of this patient for final approval. I have spent 40 minutes during this encounter including preparing to see the patient, reviewing previous labs/imaging, oncology note, performing a medically appropriate examination, extensive counseling/education, discussing benefits/side effects of pharmacologic theraputic options (bactrim) and doc umenting clinical information in the electronic health record. None of this time was spent on separate billable services or procedures. Advised the patient to call me if any problems. Patient understands the plan. Patient is in agreement with the plan. Today's documentation was made using voice recognition software.This note may contain grammatical errors secondary to this software. Radha Carroll PA-C [1] Past Surgical History: Procedure Laterality Date COLONOSCOPY PROCEDURE:COLONOSCOPY COLONOSCOPY 10/24/2008 PROCEDURE: HISTORICAL COLONOSCOPY; COMMENT: diverticulosis COLONOSCOPY 02/27/2018 PROCEDURE: HISTORICAL COLONOSCOPY; COMMENT: Diverticulosis; otherwise negative examination. LITHOTRIPSY PROCEDURE: HISTORICAL LITHOTRIPSY; COMMENT: laser stone remove x shruthi john PROSTATE SURGERY PROCEDURE:PROSTATE SURGERY TONSILLECTOMY PROCEDURE: HISTORICAL TONSILLECTOMY TURP / TRANSURETHRAL INCISION / DRAINAGE PROSTATE PROCEDURE: HISTORICAL TURP; COMMENT: dr. john 2016 UPPER GASTROINTESTINAL ENDOSCOPY 02/27/2018 PROCEDURE: [place] UPPER GI ENDOSCOPY PERFORMED; COMMENT: Normal upper GI findings, performed for the evaluation of extra mammary Paget's disease. [2] Family History Problem Relation Name Age of Onset Arthritis Mother said to have RA Heart failure Mother Kidney failure Father Stroke Brother Hypertension Brother Diabetes Brother Other cancer Neg Hx no relatives with any cancer [3] Outpatient Medications Marked as Taking for the 08/11/25 encounter (Office Visit) with YASMIN Monroy Medication Sig Dispense Refill alendronate (FOSAMAX) 70 mg tablet Take 1 tablet (70 mg total) by mouth. amLODIPine (NORVASC) 5 mg tablet Take 1 tablet (5 mg total) by mouth 1 (one) time each day. 90 tablet 3 aspirin 81 mg capsule Take by mouth. atorvastatin (LIPITOR) 20 mg tablet TAKE 1 TABLET DAILY 90 tablet 3 baclofen (LIORESAL) 10 mg tablet Take 1 tablet (10 mg total) by mouth at bedtime. From neuro buPROPion XL (WELLBUTRIN XL) 300 mg 24 hr tablet Take 1 tablet (300 mg total) by mouth 2 (two) times a day. carbidopa-levodopa (SINEMET) 25-100 mg per tablet Take 1 tablet by mouth 6 (six) times a day. entacapone (COMTAN) 200 mg tablet Take 1 tablet (200 mg total) by mouth 6 (six) times a day. ketoconazole (NIZORAL) 2 % cream Apply 1 Application topically 2 (two) times a day. leucovorin 10 mg tablet TAKE 1 TABLET BY MOUTH EVERY WEEK. TAKE THE DAY AFTER YOU TAKE METHOTREXATE lidocaine 0.5% (SOLARCAINE) 0.5 % gel external gel Apply 5 g topically 2 times daily as needed. lisinopril (PRINIVIL,ZESTRIL) 40 mg tablet TAKE 1 TABLET DAILY 90 tablet 3 LORazepam (ATIVAN) 0.5 mg tablet Take 1 [...] (one) time each day in the morning. rOPINIRole (REQUIP) 2 mg tablet Take 1 tablet (2 mg total) by mouth. tamsulosin (FLOMAX) 0.4 mg 24 hr capsule Take 1 capsule (0.4 mg total) by mouth 1 (one) time each day. traMADoL (ULTRAM) 50 mg tablet Take 1 tablet (50 mg total) by mouth. [4] Allergies Allergen Reactions Erythromycin Skin Problems Minocycline Other Changed color of skin greenish yellow Amoxicillin Swelling Other Reaction(s): Rash/Dermatitis eye swelling Oxycodone Rash Percocet [Oxycodone-Acetaminophen] Rash Polymyxin B Rash Sertraline Rash * Maritza Chisholm MA - 08/11/2025 12:45 PM EDT This documentation confirms that Maritza Chisholm MA was the taxation accountant for Caleb Lai Shakajimroney on their office visit 08/11/2025. documented in this encounter Plan of Treatment Upcoming Encounters Date Type Department Care Team (Late st Contact Info) Description 08/26/2025 2:15 PM EST Appointment Radiology Department [address] [phone] 06/01/2026 9:15 AM EDT Office Visit [facility] Hematology Oncology [address] [place] [phone] Katja Lainez MD [address] [place] [phone] Scheduled Orders Name Type Priority Associated Diagnoses Orde r Schedule CT Abdomen Pelvis w Contrast Imaging Routine Night sweats Expected: 08/11/2025, Expires: 08/11/2026 CT Chest w Contrast Imaging Routine Night sweats Expected: 08/11/2025, Expires: 08/11/2026 US Scrotum and Contents Imaging Routine Scrotal abscess Expected: 08/11/2025, Expires: 08/11/2026 Scheduled Referrals Name Type Priority Associated Diagnoses Order Schedule Ambulatory referral to Urology Outpatient Referral Routine Scrotal abscess 1 Occurrences starting 08/11/2025 until 08/11/2026 documented as of this encounter Goals Goal Patient Goal Type Associated Problems Recent Progress Patient-Stated? 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 Kusum Santacruz, RN documented as of this encounter Visit Diagnoses Diagnosis Night sweats- Primary Generalized hyperhidrosis Extramammary Paget disease Other malignant neoplasm of skin, site unspecified Scrotal abscess Other inflammatory disorder of male genital organs documented in this encounter Discontinued Medications Medication Sig Discontinue Reason Start Date End Da te doxycycline (VIBRAMYCIN) 100 mg capsule Therapy completed 202208/11/2025 documented as of this encounter Additional Health Concerns Active Problems Noted Date Diagnosed Date Impaired Tissue 09/02/2024 Education needed on impact of smoking on wound 1 11/02/2023 Education needed related to ulceration/compromised skin integrity. 09/02/2024 Assessment Noted Time PHQ-9 Depression Total Score: 6 07/26/20 25 8:22 AM EDT A fall risk assessment has been complete d for the patient 12/27/2024 12:31 PM EDT documented as of this encounter Care Teams Tape Coater Relationship Specialty Start Date End Date Adalberto Zepeda PA [address] [place] [address] PCP - General Internal Medicine 08/18/24 documented as of this encounter
--- NOTE | 2025-08-16 | ECG_ITS ---
Test Reason : FALL Blood Pressure : */* mmHG Vent. Rate : 67 BPM Atrial Rate : 67 BPM P-R Int : 172 ms QRS Dur : 94 ms QT Int : 436 ms P-R-T Axes : 38 -30 29 degrees QTcB Int : 460 ms Normal sinus rhythm Left axis deviation Minimal voltage criteria for LVH, may be normal variant ( R in aVL ) Septal infarct , age undetermined Abnormal ECG No previous ECGs available Referred By: Generic ED Physician Electronically Signed By: MISHA SMITH
--- NOTE | ~2025-08-16 | CT_ITS ---
CLINICAL HISTORY: fall CT head without contrast Comparison: None provided Findings: No intra-axial mass, midline shift, hydrocephalus, or acute hemorrhage. Parenchymal atrophy and minimal white matter disease. Clear mastoid air cells. Diffuse paranasal sinus disease, [id number]-[id number]-hwif-left. The orbits are within normal limits. No skull fracture. IMPRESSION: 1. No acute intracranial findings. This document has been electronically signed by: Bradly Swain MD on 08/16/2025 03:48:08
--- NOTE | ~2025-08-16 | CT_ITS ---
CLINICAL HISTORY: fall CT cervical spine without contrast Comparison: None provided Findings: Normal vertebral body alignment. Multilevel spondylosis, most pronounced at C5-6 and C6-7, as well as bilateral facet arthropathy. No acute fractures or dislocations. Visualized intracranial contents are unremarkable. No cervical fluid collections or masses. No consolidation or effusion at the lung apices. IMPRESSION: No acute findings. This document has been electronically signed by: Bradly Swain MD on 08/16/2025 03:45:52
--- NOTE | ~2025-08-16 | XR_ITS ---
CLINICAL HISTORY: pain after fall --- Additional Notes or Special Instructions: Pt collared @0300--cm 3 view left shoulder Comparison: None provided Findings: No fractures or dislocations. Soft tissue structures appear intact. IMPRESSION: No acute osseous abnormality is identified. This document has been electronically signed by: Rufino Banerjee on 08/16/2025 05:17:44
[2025-08-16 01:59] VITALS: BP 132/90; BP 144/78; PULSE 68; PULSE 70; TEMP 36.6; O2SAT 98; O2SAT 99; BMI 26.3
[2025-08-16 02:06] VITALS: BP 144/78; PULSE 68; TEMP 36.6; O2SAT 98
[2025-08-16 02:25] LABS: MANUAL DIFF FLAG NO
--- OUTSIDE RECORDS SUMMARY | 2025-08-16 02:29 | XMS_ITS | Clinical Summary ---
Author Organization [facility] Address [address] [place] [address] Care Team Providers Care Clin Nurse Spec Name Role Phone Adalberto Zepeda PA-C Primary [...] age to complete this topic Care Teams Clin Nurse Spec Relationship Specialty Start Date End Date Adalberto Zepeda, PAAndreeaC PCP - General Medical Services 08/15/21
--- OUTSIDE RECORDS SUMMARY | 2025-08-16 02:29 | XMS_ITS | Clinical Summary ---
Author Organization [facility] Address [address] [place] [address] Phone Care Team Providers Care Flash Designer Name Role Phone Adalberto Zepeda Primary Care Provider [phone] Allergies Active Allergy Reactions Criticality Noted Date [...] (six) times a day. 06/09/20 20 Active entacapone (COMTAN) 200 mg tablet Take 1 tablet (200 mg total) by mouth 6 (six) times a day. 08/02/20 22 Active ketoconazole (NIZORAL) 2 % cream Apply [...] mouth 1 (one) time per week 10/11/20 21 Active mirtazapine (REMERON) 30 mg tablet Take 1 tablet (30 mg total) by mouth at bedtime. Active mupirocin (BACTROBAN) 2 % ointment Apply topically. Active tamsulosin (FLOMAX) 0.4 mg 24 hr capsule Take 1 capsule (0.4 mg total) by mouth 1 (one) time each day. 07/29/20 22 Active meloxicam, bulk, 100 % powder Take 15 mg by mouth 1 (one) time each day. Active alendronate (FOSAMAX) 70 mg tablet Take [...] AFTER YOU TAKE METHOTREXATE 06/03/20 24 Active amLODIPine (NORVASC) 5 mg tablet Take 1 tablet (5 mg total) by mouth 1 (one) time each day. 90 tablet 3 12/28/19 25 Active atorvastatin (LIPITOR) 20 mg tablet TAKE 1 TABLET DAILY 90 tablet 3 03/02/20 25 Active lisinopril (PRINIVIL,ZES TRIL) 40 mg tablet TAKE 1 TABLET DAILY 90 tablet 3 03/02/20 25 Active baclofen (LIORESAL) 10 mg tablet Take 1 tablet (10 mg total) by mouth at bedtime. From neuro Active omeprazole (PriLOSEC) [address] capsule TAKE 1 CAPSULE TWICE DAILY 180 capsule 1 08/08/20 25 Active sulfamethoxaz ole-trimethop rim (BACTRIM DS,SEPTRA DS) 800-160 mg per tablet Take 1 tablet by mouth 2 (two) times a day for 7 days. 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 limited to breakdown of skin ([facility] V24, [facility] V28) 08/25/2024 Essential (primary) hypertension 08/25/2024 Wound infection 08/25/2024 Painful skin lesion 08/15/2021 Parkinson's disease ([facility] V24, [facility] V28) 1 11/28/2018 Essential tremor 08/16/2019 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 Benign prostatic hyperplasia without lower urinary tract symptoms 12/24/2017 Bradycardia 12/24/2017 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 12/24/2017 Weight loss 12/24/2017 Renal cyst 03/24/2012 Overview (07/14/2024): thomas 01/28 f/up in 1 year advised Encounters Date Type Department Care Team Description 08/11/2025 12:45 PM EDT Office Visit Adult Medicine [address] [phone] Radha Carroll PA Night sweats (Primary Dx); Extramammary Paget disease; Scrotal abscess 07/26/2025 8:00 AM EDT Consult [facility] [address] [place] [phone] Adalberto Avalos PA Blister of lower leg, right, initial encounter (Primary Dx); Skin ulcer of right lower leg, limited to breakdown of skin ([facility] V24, [facility] V28) 07/05/2025 4:40 PM EDT - 07/05/2025 11:59 PM EDT Hospital Encounter [facility] [address], [place] [phone] Night sweats Discharge Disposition: Home or Self Care 07/05/2025 4:00 PM EDT Office Visit Adult Medicine [facility] [address] [place] [address] Donna Benjamin PA Essential (primary) hypertension (Primary Dx); Parkinson's disease without dyskinesia, unspecified whether manifestations fluctuate (CMS/HCC V24, CMS/HCC V28); Extramammary Paget disease; Night sweats; Skin ulcer of right lower leg, limited to breakdown of skin (CMS/HCC V24, CMS/HCC V28); PTSD (post-traumatic stress disorder); Anxiety; Need for prophylactic vaccination and inoculation against influenza 06/01/2025 10:30 AM EDT Office Visit [facility] [address] [place] [phone] Katja Lainez MD Extramammary Paget disease (Primary Dx) from Last 3 Months Immunizations Immunization Administration Dates Next Due Influenza trivalent, 0.5mL ( Fluad) 65yo and older 07/05/2025 [employer] SARS-CoV-2 COVID-19, mRNA, LNP-S, preservative free 07/01/2022,12/10/2020,11/19/2020 [...] negative examination. UPPER GASTROINTESTINAL ENDOSCOPY 02/27/2018 PROCEDURE: [place] UPPER [...] PTSD (post-traumatic stress disorder) Major depressive disorder Aortic stenosis Extramammary Paget disease Family History Medical History Relation Name Comments [...] care for your loved ones. For example, early childhood education worker or elderly care for an older adult? [...] Mass Index 24.84 08/11/2025 12:58 PM EDT Plan of Treatment Upcoming Encounters Date Type Department Care Team (Late st Contact Info) Description 08/26/2025 2:15 PM EST Appointment Radiology Department [address] [phone] 06/01/2026 9:15 AM EDT Office Visit [facility] [address] [place] [phone] Katja Lainez MD [address] [place] [phone] Health Maintenance Due Date Last Done Comments Medicare Annual Wellness Visit 09/28/2022 COVID-19 Vaccine ( season) 2025 07/01/2022, 07/18/2021, 12/10/2020, Additional history exists Social Influencers of Health Screening 12/20/2025 12/20/2024 Hypertension/CHF/CAD Annual BMP Blood Test 07/06/2026 07/06/2025, 08/04/2024 Falls Risk Assessment 08/11/2026 08/11/2025 , 07/26/2025, 07/05/2025, Additional history exists Cholesterol Screening (Lipid Panel) 07/06/2030 07/06/2025, 08/04/2024 DTaP,Tdap,and Td Vaccines (7 - Td or Tdap) 08/06/2033 08/06/2023, 04/02/2013, 04/02/2013, Additional history exists Zoster Vaccines Completed 06/26/2023, 02/17, 03/30/2013 Pneumococcal Vaccine: 50+ Years Completed 08/10/2024, 07/20/2016, 02/26/2016, Additional history exists Influenza Vaccine Completed 07/05/2025, , 07/02/2024, Additional history exists Depression Screening Completed 08/04/2025 HIB Vaccines Aged Out No longer eligi [...] 4 Care Plan Impaired Tissue No Kusum eMssina RN Wound volume breakdown reduced by X% [...] Procedure Name Priority Date/Time Associated Diagnosis Comments TESTOSTERONE FREE, BIOAVAILABLE AND TOTAL Routine 07/06/2025 7:36 AM EDT Night sweats CORTISOL Routine 07/06/2025 7:36 AM EDT Night sweats CBC WITH AUTO DIFFERENTIAL Routine 07/06/2025 7:36 AM EDT Night sweats CBC AND DIFFERENTIAL Routine 07/06/2025 7:36 AM EDT Night sweats THYROID STIMULATING HORMONE WITH REFLEX TO FREE T4 AND FREE T3 Routine 07/06/2025 7:36 AM EDT Night sweats LIPID PANEL WITH REFLEX TO DIRECT LDL Routine 07/06/2025 7:36 AM EDT Tear of left biceps muscle, initial encounter Benign prostatic hyperplasia without lower urinary tract symptoms Bradycardia Essential tremor Parkinson's disease without dyskinesia, unspecified whether manifestations fluctuate (CMS/HCC V24, CMS/HCC V28) Essential (primary) hypertension Chronic venous hypertension (idiopathic) with inflammation of left lower extremity Renal cyst COMPREHENSIVE METABOLIC PANEL Routine 07/06/2025 7:36 AM EDT Night sweats XR CHEST 2 VIEWS Routine 07/05/2025 4:48 PM EDT Night sweats EXTERNAL CLINICAL LAB 05/26/2025 EXTERNAL CLINICAL LAB 05/26/2025 from Last 3 Months Results * Thyroid stimulating hormone with reflex to free t4 and free t3 (07/06/2025 7:36 AM EDT) TSH 3.21 0.40 - 4.00 mcIU/mL LAB CHEMISTRY METHOD 07/06/2025 11:35 AM EDT [facility] Blood Venous blood specimen / Unknown Venipuncture / Unknown 07/06/2025 7:36 AM EDT 07/06/2025 7:36 AM EDT us Donna HOFFMAN LAB BLOOD ORDERABLES Final Resul t [facility] [address] [place] [address], [place] [phone] * Lipid panel with reflex to direct LDL (07/06/2025 7:36 AM EDT) Cholesterol 136 0 - 200 mg/dL LAB CHEMISTRY METHOD 07/06/2025 10:[address] [facility] Triglycerides 56 0 - 150 mg/dL LAB CHEMISTRY METHOD 07/06/2025 10:[address] [facility] HDL 67 >=40 mg/dL LAB CHEMISTRY METHOD 07/06/2025 10:[address] [facility] LDL Calculated 58 0 - 100 mg/dL LAB CHEMISTRY METHOD 07/06/2025 10:[address] [facility] Comment:Estimated LDL Calcul ated using equation: Total cholesterol - HDL cholesterol - (Triglycerides/5) VLDL Cholesterol Colby 11.2 mg/dL LAB CHEMISTRY METHOD 07/06/2025 10:[address] [facility] Non HDL Chol. (LDL+VLDL) 69 <145 mg/dL LAB CHEMISTRY METHOD 07/06/2025 10:[address] [facility] Chol/HDL Ratio 2.0 0.0 - 4.4 LAB CHEMISTRY METHOD 07/06/2025 10:[address] [facility] Blood Venous blood specimen / Unknown Venipuncture / Unknown 07/06/2025 7:36 AM EDT 07/06/2025 7:36 AM EDT us Adalberto HOFFMAN LAB BLOOD ORDERABLES Poonam l Result [facility] [address] [place] [address], [place] [phone] * Testosterone free, bioavailable and total (07/06/2025 7:36 AM EDT) Testosterone 611 229 - 902 ng/dL LAB CHEMISTRY METHOD 07/06/2025 6:[address] [facility] Testosterone, Free 7.0 0.6 - 7.3 ng/dL LAB CHEMISTRY METHOD 07/06/2025 6:[address] [facility] Testosterone, Bioavailable 149 15 - 150 ng/dL LAB CHEMISTRY METHOD 07/06/2025 6:[address] [facility] Sex Hormone Binding 82.0 See Comment nmol/L LAB CHEMISTRY METHOD 07/06/2025 6:[address] [facility] Comment: FEMALES: pre-menopausal 10.8 - >180 post-menopausal 23.2 - 159.1 MALES: 21-49 years 14.6 - 94.6 50-89 years 21.6 - 113.1 CHILDREN: No established reference range Over the counter supplements containing high doses of biotin may interfere with this assay. If interference is suspected, patients should be retested after refraining from biotin supplements for 72 hours. Albumin 3.9 3.2 - 5.0 g/dL LAB CHEMISTRY METHOD 07/06/2025 6:[address] [facility] Blood Venous blood specimen / Unknown Venipuncture / Unknown 07/06/2025 7:36 AM EDT 07/06/2025 7:36 AM EDT us Donna HOFFMAN LAB BLOOD ORDERABLES Final Resul t [facility] [address] [place] [address], * (ABNORMAL) CBC auto differential (07/06/2025 7:36 AM EDT) WBC 6.8 4.8 - 10.8 K/[facility] LAB HEMETOLOGY METHOD 07/06/2025 10:[address] [facility] RBC 3.60(L) 4.50 - 5.50 M/[facility] LAB HEMETOLOGY METHOD 07/06/2025 10:34 AM [facility] Hemoglobin 12.3(L) 13.5 - 17.5 g/dL LAB HEMETOLOGY METHOD 07/06/2025 10:34 AM [facility] Hematocrit 37.3(L) 42.0 - 54.0 % LAB HEMETOLOGY METHOD 07/06/2025 10:34 AM [facility] MCV 103.0(H) 79.0 - 98.0 FL LAB HEMETOLOGY METHOD 07/06/2025 10:34 AM [facility] MCH 34.0(H) 27.0 - 32.0 pcg LAB HEMETOLOGY METHOD 07/06/2025 10:34 AM [facility] MCHC 33.0 32.0 - 37.0 g/dL LAB HEMETOLOGY METHOD 07/06/2025 10:34 AM [facility] RDW 13.7 11.0 - 15.0 % LAB HEMETOLOGY METHOD 07/06/2025 10:34 AM [facility] Platelets 172 130 - 400 K/mcL LAB HEMETOLOGY METHOD 07/06/2025 10:34 AM [facility] MPV 10.1 7.0 - 11.0 FL LAB HEMETOLOGY METHOD 07/06/2025 10:34 AM [facility] NRBC 0.0 <1.0 % LAB HEMETOLOGY METHOD 07/06/2025 10:34 AM [facility] NRBC Absolute 0.00 <0.10 K/mcL LAB HEMETOLOGY METHOD 07/06/2025 10:34 AM [facility] Neutrophils Relative 62.3 % LAB HEMETOLOGY METHOD 07/06/2025 10:34 AM [facility] Lymphocytes Relative 20.6 % LAB HEMETOLOGY METHOD 07/06/2025 10:[address] [facility] Monocytes Relative 12.6 % LAB HEMETOLOGY METHOD 07/06/2025 10:[address] [facility] Eosinophils Relative 3.8 % LAB HEMETOLOGY METHOD 07/06/2025 10:[address] [facility] Basophils Relative 0.3 % LAB HEMETOLOGY METHOD 07/06/2025 10:[address] [facility] Immature Granulocytes Relative 0.4 % LAB HEMETOLOGY METHOD 07/06/2025 10:[address] [facility] Neutrophils Absolute 4.25 1.50 - 7.00 K/mcL LAB HEMETOLOGY METHOD 07/06/2025 10:[address] [facility] Lymphocytes Absolute 1.41 1.00 - 5.00 K/mcL LAB HEMETOLOGY METHOD 07/06/2025 10:[address] [facility] Monocytes Absolute 0.86 0.20 - 1.00 K/mcL LAB HEMETOLOGY METHOD 07/06/2025 10:[address] [facility] Eosinophils Absolute 0.26 0.00 - 0.50 K/mcL LAB HEMETOLOGY METHOD 07/06[facility]2025 [facility] Basophils Absolute 0.02 0.00 - 0.20 K/mcL LAB HEMETOLOGY METHOD 07/06/2025 10:[address] [facility] Immature Granulocytes Absolute 0.03 0.00 - 0.03 K/mcL LAB HEMETOLOGY METHOD 07/06/2025 10:34 AM [facility] Blood Venous blood specimen / Unknown Venipuncture / Unknown 07/06/2025 7:36 AM EDT 07/06/2025 7:36 AM EDT us Donna HOFFMAN LAB BLOOD ORDERABLES Final Resul t [facility] [address] [place] [address], [place] [phone] * Cortisol (07/06/2025 7:36 AM EDT) Pathologist [facility] Cortisol 9.4 mcg/dL LAB CHEMISTRY METHOD 07/06/2025 6:[address] [facility] Blood Venous blood specimen / Unknown Venipuncture / Unknown 07/06/2025 7:36 AM EDT 07/06/2025 7:[address] [facility] - 07/06/2025 6:44 PM EDT CORTISOL REFERENCE RANGE 8 AM SPEC: 5.0-23.0 mcg/dL 4 PM SPEC: 3.0-16.0 mcg/dL 8 PM SPEC: <5.0 mcg/dL Donna HOFFMAN LAB BLOOD ORDERABLES Final Resul t [facility] [address] [place] [address], [place] [phone] * (ABNORMAL) Comprehensive metabolic panel (07/06/2025 7:36 AM EDT) [facility] Sodium 141 133 - 145 mmol/L LAB CHEMISTRY METHOD 07/06/2025 10:[address] [facility] Potassium 4.3 3.5 - 5.5 mmol/L LAB CHEMISTRY METHOD 07/06/2025 10:[address] [facility] Chloride 108 96 - 110 mmol/L LAB CHEMISTRY METHOD 07/06/2025 10:[address] [facility] CO2 27 21 - 32 mmol/L LAB CHEMISTRY METHOD 07/06/2025 10:[address] [facility] Anion Gap 6 3 - 11 LAB CHEMISTRY METHOD 07/06/2025 10:[address] [facility] Glucose 92 70 - 100 mg/dL LAB CHEMISTRY METHOD 07/06/2025 10:49 AM [facility] BUN 29(H) 5 - 25 mg/dL LAB CHEMISTRY METHOD 07/06/2025 10:49 AM [facility] Creatinine 1.27 0.70 - 1.30 mg/dL LAB CHEMISTRY METHOD 07/06/2025 10:49 AM [facility] eGFR 57(L) >=60 mL/min/1. 73m2 LAB CHEMISTRY METHOD 07/06/2025 10:49 AM [facility] Comment:Calculation based on the Chronic Kidney Disease Epidemiology Collaboration (CKD-EPI) equation refit without adjustment for race. BUN/Creatinine Ratio 22.8 LAB CHEMISTRY METHOD 07/06/2025 10:49 AM [facility] Calcium 9.1 8.5 - 10.5 mg/dL LAB CHEMISTRY METHOD 07/06/2025 10:49 AM [facility] AST (SGOT) 22 10 - 42 unit/L LAB CHEMISTRY METHOD 07/06/2025 10:49 AM [facility] ALT (SGPT) 31 10 - 60 unit/L LAB CHEMISTRY METHOD 07/06/2025 10:49 AM [facility] Alkaline Phosphatase 69 42 - 121 unit/L LAB CHEMISTRY METHOD 07/06/2025 10:49 AM [facility] Total Protein 6.4 6.0 - 8.0 g/dL LAB CHEMISTRY METHOD 07/06/2025 10:49 AM [facility] Albumin 3.8 3.2 - 5.0 g/dL LAB CHEMISTRY METHOD 07/06/2025 10:49 AM [facility] Total Bilirubin 0.9 0.0 - 1.4 mg/dL LAB CHEMISTRY METHOD 07/06/2025 10:49 AM [facility] Blood Venous blood specimen / Unknown Venipuncture / Unknown 07/06/2025 7:36 AM EDT 07/06/2025 7:36 AM EDT us Donna HOFFMAN LAB BLOOD ORDERABLES Final Resul t [facility] [address] [place] [address], [place] [phone] * XR Chest 2 Views (07/05/2025 4:48 PM EDT) Anatomical Region Laterality Modality Body Radiographic Zuleyma ging 07/05/2025 8:05 PM EDT Impressions 07/05/2025 8:06 PM EDT 1. No acute cardiopulmonary process. If further evaluation is necessary, consider CT chest 2. Calcifications overlying the right upper quadrant which could represent gallstones. Consider right upper quadrant ultrasound if clinically indicated -------- FINAL REPORT -------- Dictated By: Anitha Zhong Dictated Date: 07/05/2025 20:05 ET Assigned Physician: Anitha Zhong Reviewed and Electronically Signed By: Anitha Zhong Signed Date: 07/05/2025 20:06 ET Workstation ID: [id number] Transcribed By: Self Edit Transcribed Date: 07/05/2025 20:05 ET Narrative 07/05/2025 8:06 PM EDT HISTORY: night sweats TECHNIQUE: PA and lateral radiographs of the chest COMPARISON: None FINDINGS: There is a normal cardiomediastinal silhouette. The lungs are clear. Moderate degenerative changes of the thoracic spine. Calcifications overlying the right upper quadrant. Procedure Note Anitha Zhong MD - 07/05/2025 HISTORY: night sweats TECHNIQUE: PA and lateral radiographs of the chest COMPARISON: None FINDINGS: There is a normal cardiomediastinal silhouette. The lungs are clear.Moderate degenerative changes of the thoracic spine. Calcificationsoverlying the right upper quadrant. IMPRESSION: 1. No acute cardiopulmonary process. If further evaluation is necessary,consider CT chest 2. Calcifications overlying the right upper quadrant which could representgallstones. Consider right upper quadrant ultrasound if clinicallyindicated -------- FINAL REPORT -------- Dictated By: Anitha Zhong Dictated Date: 07/05/2025 20:05 ET Assigned Physician: Anitha Zhong Reviewed and Electronically Signed By: Anitha Zhong Signed Date: 07/05/2025 20:06 ET Workstation ID: [id number] Transcribed By: Self Edit Transcribed Date: 07/05/2025 20:05 ET Donna HOFFMAN IMG XR PROCEDURES Final Result * External clinical lab (05/26/2025) Only the [...] Documents on File Type Date Recorded Patient Internal Control Manager Expl anation Health Care Decision (hx) 01/07/2018 AD UP DIRECTIVE Health Care Decision (hx) 01/07/2018 AD UP DIRECTIVE Care Teams Flash Designer Relationship Specialty Start Date End Date Adalberto Zepeda PA [address] [place] [address] PCP - General Internal Medicine 08/18/24
--- OUTSIDE RECORDS SUMMARY | 2025-08-16 02:29 | XMS_ITS | Patient Health Record ---
Author Organization [facility] Address [address] [facility] [address] [place] [address] Care Team Providers Care Child Care Lead Teacher Name Role Phone Raman WARE, Vandana [...] Polymyxin B Unknown Drug Allergy Act charly Results Component Value Reference Range Notes Pathology Reviewed date:01/22/2025 03:35:39 PM Interpretation: Performing Lab:[facility], [address] [place] [address] Notes/Report: Reason For Referral Referring Provider First Name Vandana Referring Provider Last Name Raman Referred Organization [facility] Referred Provider Eugene Iyer Jr Referred Address [address] [place] [phone],[place] Referred Provider Specialty Gastroentero logy Referral Priority Routine Referring Provider First Name Vandana Referring Provider Last Name Raman Referred Organization [facility] Referred Provider Eugene Iyer Jr Referred Address [address] [place] [phone],[place] Referred Provider Specialty Gastroentero logy General Notes Dorcas Diallo 2024 08:47:06 AM >faxed request for additional services to the [place] Referral Priority Routine Medications Medication SIG (Take, Route, Frequency, Duration) Notes Start Date End Date Status Doxycycline Hyclate 100 MG Oral; Duration: 30 Active predniSONE 10 MG 1 tablet Orally Once a day; Duration: 30 day(s) as needed for inflamation Active Omeprazole 20 MG Oral; Duration: 90 Active Mupirocin 2 % 1 application Externally Twice a day; Duration: 5 day(s) Active Leucovorin Calcium 10 MG TAKE 2 TABLETS BY MOUTH ONCE A WEEK THE DAY AFTER METHOTREXATE Oral; Duration: 84 Active rOPINIRole HCl 2 MG 1 tablet 1 to 3 hours before bedtime Orally Once a day; Duration: 30 day(s) Active Tamsulosin HCl 0.4 MG Oral; Duration: 90 Active amLODIPine Besylate 5 MG TAKE 1 TABLET BY MOUTH 1 TIME EACH DAY. Oral; Duration: 14 Active QUEtiapine Fumarate ER 150 MG 1 tablet in the evening Orally Once a day; Duration: 30 day(s) 04/13/2025 Active Atorvastatin Calcium 40 MG TAKE 1 TABLET BY MOUTH EVERY DAY Oral; Duration: 20 Active traZODone HCl 100 MG 1 tablet at bedtime Orally Once a day; Duration: 30 day(s) Active Aspirin 81 81 MG 1 tablet Orally Once a day; Duration: 30 day(s) 12/01/2024 Active PARoxetine HCl 30 MG 1 tablet in the morning Orally Once a day; Duration: 30 day(s) Active Entacapone 200 MG 1 tablet Orally Twice a day; Duration: 30 day(s) Active Lisinopril 40 MG Oral; Duration: 90 Active Carbidopa 25 MG 1 tablet Orally Three times a day; Duration: 30 day(s) Active Methotrexate Sodium 2.5 MG Oral; Duration: 84 Active buPROPion HCl ER (XL) 300 MG 1 tablet in the morning Orally Once a day; Duration: 30 day(s) Active Omeprazole 40 MG 1 capsule 1/2 to 1 hour before morning meal Orally Once a day; Duration: 30 days 01/22/2025 Active Alendronate Sodium 70 MG Oral; Duration: 84 Active Enbrel SureClick 50 MG/ML Subcutaneous; Duration: 28 Days Active Immunizations Vaccine Route Administration [...] Problem Status W/U Status Risk Notes Problem Long-term current use of antiplatelet drug (810089221373474) Long-term use of aspirin therapy (Z79.82) Active confirmed Problem Dysphagia (32506988) Dysphagia, unspecified type (R13.10) Active confirmed Problem Gastroesophageal reflux disease (357631514) Gastroesophageal reflux disease, unspecified whether esophagitis present (K21.9) Active confirmed Vital Signs Temperature 98.0 degrees Fahrenheit 04/13/2025 Blood pressure diastolic 01 mm Hg 04/13/2025 Height 70 in 04/13/2025 Blood pressure systolic 001 mm Hg 04/13/2025 Weight 166.4 lbs 04/13/2025 BMI 23.87 kg/m2 04/13/2025 Encounters Encounter Location Date Provider Diagnosis [facility] [address] [place] [id number] 01/14/2025 Eugene Iyer Jr Dysphagia R13.10 [facility] [address] [place] [phone] 12/01/2024 Eugene Iyer Jr Dysphagia, unspecified type R13.10 ; Long-term use of aspirin therapy Z79.82 and Gastroesophageal reflux disease, unspecified whether esophagitis present K21.9 [facility] [address] [address] 04/13/2025 Eugene Iyer Jr Gastroesophageal reflux disease, unspecified whether esophagitis present K21.9 and Dysphagia, unspecified type R13.10 [facility] [address] [place] [address] 01/14/2025 Eugene Iyer Jr [facility] [address] [place] [address] 01/22/2025 Eugene Iyer Jr [facility] [address] [place] [address] 04/20/2025 Eugene Iyer Jr Assessments Encounter Date [...] MBS this will be arranged through the [place] where his prior testing has been done. Some of his dysphagia may be related to his underlying Parkinson's disease and we discussed this today. [place] records will be obtained and reviewed. Follow-up [...] MBS this will be arranged through the [place] where his prior testing has been done. Some of his dysphagia may be related to his underlying Parkinson's disease and we discussed this today. [place] records will be [place] and reviewed. Follow-up will be pending these results. Today's visit was 30 minutes. Plan Of Treatment Future Test Test Name Order Date UPPER GI ENDOSCOPY 12/01/2024 Next Appt Details Provider Name:Eugene Reza Hayes domingo Jr, 04/17/2026 09:40:00 AM, [address] [place] [address], [address], [place], [address], Insurance Providers Payer Name Payer Address Payer Phone Subscriber Number Group Number Insured Name Patient Relationship to Insured Coverage Start Date Coverage End Date [facility] [employer] [address] DEDE SALCEDO [id number] KOFI STANLEY Self - patient is the [...] Surgery Date(Month/Year) Lithotripsy for nephrolithiasis colonoscopy 2019, [place] Tonsillectomy
--- OUTSIDE RECORDS SUMMARY | 2025-08-16 02:29 | XMS_ITS | Data Portability ---
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 Likely cuff tear as well PLAN: Operative intervention would be in the form [...] for repeat clinical evaluation and treatment discussion. Not available 06/07/2025 10:02:29 Plan of Treatment Reminders Order Date Submit Date Provider Last Modified By Organization Details Last Modified Time Details Appointments FOLLOW UP 2024 09:00A Lc Salazar MD Not available Not available Not available Lab None recorded. Referral None recorded. Procedures None recorded. Surgeries None recorded. Imaging None recorded. Medication Orders lidocaine (PF) 10 mg/mL (1 %) injection solution 2024 025 [email or web address] Not available 06/10/2025 16:36:05 Marcaine (PF) 0.5 % (5 mg/mL) injection solution 2024 025 [email or web address] Not available 06/10/2025 16:36:05 triamcino lone acetonide 40 mg/mL suspensio n for injection 2024 025 [email or web address] Not available 06/10/2025 16:36:05 lidocaine (PF) 10 mg/mL (1 %) injection solution 2024 025 [email or web address] Not available 02/23/2025 09:45:00 Marcaine (PF) 0.5 % (5 mg/mL) injection solution 2024 025 [email or web address] Not available 02/23/2025 09:45:00 triamcino lone acetonide 40 mg/mL suspensio n for injection 2024 025 [email or web address] Not available 02/23/2025 09:45:00 lidocaine (PF) 10 mg/mL (1 %) injection solution 2024 025 [email or web address] Not available 11/23/2024 15:38:24 Marcaine (PF) 0.5 % (5 mg/mL) injection solution 2024 025 [email or web address] Not available 11/23/2024 15:38:24 triamcino lone acetonide 40 mg/mL suspensio n for injection 2024 025 [email or web address] Not available 11/23/2024 15:38:24 lidocaine (PF) 10 mg/mL (1 %) injection solution 2024 025 [email or web address] r1 [id number], [address] [place], [address], 10/21/2024 13:13:53 triamcino lone acetonide 40 mg/mL suspensio n for injection 2024 025 [email or web address] r1 [id number], [address] [place], [address], 10/21/2024 13:13:53 diclofena c 1 % topical gel 2024 025 JUSTO [id number], [address] [place], [address], 10/21/2024 09:08:00 lidocaine (PF) 10 mg/mL (1 %) injection solution 2023 024 comfort [id number], [address] [place], [address], 08/12/2024 08:54:35 triamcino lone acetonide 40 mg/mL suspensio n for injection 2023 024 [email or web address] 2 Not available 08/12/2024 09:02:17 lidocaine (PF) 10 mg/mL (1 %) injection solution 2023 024 comfort topete [id number], [address] [place], [address], 08/12/2024 08:54:35 triamcino lone acetonide 40 mg/mL suspensio n for injection 2023 024 comfort [id number], [address] [place], [address], 08/12/2024 08:54:35 Patient TargetsNo targets recorded. Patient Instructions Encounter Date Encounter Id Patient Instructions Last Modified By Organization Details Last Modified Time 08/12/2024 [id number] You have been provided with a cortisone [...] following the injection. This is called a f lare . To help minimize the chances of this, please see the post-injection instructions above. There is a less than 1% chance of an infection. If you notice any signs of infection (redness, warmth, drainage, fever greater than 100 degrees) please call our office or contact us through the portal TAMIE. Not available 08/12/2024 09:33:27 10/21/2024 [id number] You have been provided with a cortisone [...] following the injection. This is called a f lare . 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 17378865 Active 2023 Leidy frost MD [address], [place], [address], [place] [facility], [facility] 4 13:08:36 Arthritis of left glenohumera l joint 0221200121770 100 Active 2023 Leidy frost MD [address], [place], [address], [place] [facility], [facility] 4 11:54:47 Triggering of digit 784009201 Active 2023 Leidy frost MD [address], [place], [address], [place] [facility], [facility] 4 11:56:43 Arthritis of first carpometaca rpal joint of right hand 7877468643448 100 Active 2024 Leidy frost MD [address], [place], [address], [place] [facility], [facility] 5 09:05:52 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 Procedures Surgical History Date Name Laterality Status Provider Name and Address Organization Details Recorded Time 06/07/20 AJR Shoulder GH Inj completed Edwardo Salazar MD [address], [place], [address], [place] [facility] 06/07/2025 09:44:41 02/23/20 AJR Shoulder GH Inj completed Edwardo Salazar MD [address], [place], [address], [place] [facility] 02/22/2025 09:19:33 11/23/19 25 AJR Shoulder GH Inj completed Edwardo Salazar MD [address] [facility],[address] [place] [address], [address], [place] [facility] 11/23/2024 09:36:38 10/21/19 25 LES finger joint injection completed Leidy Langford MD [address] [facility],[address] [place] [address], [address], [place] [facility] 10/21/2024 09:05:14 08/12/20 24 LES finger joint injection completed Leidy Langford MD [address] [facility],[address] [facility], [place], [address], [place] [facility] 08/12/2024 09:33:13 08/12/20 24 LES Subacromial Shoulder Inj completed Leidy Langford MD [address] [facility],[address], [address], [place] [facility] 08/12/2024 09:32:56 05/13/20 24 LES Subacromial Shoulder Inj completed Leidy Langford MD [address] [facility],[address], [address], [place] [facility] 05/13/2024 11:53:24 04/01/20 24 LES trigger finger/De Quervain's injection completed Leidy Langford MD [address] [facility],[address], [address], [place] [facility], [facility] 04/01/2024 11:47:54 02/26/20 24 LES finger joint injection completed Leidy Langford MD [address] [facility],[address] [place] [address], [address], [place] [facility] 02/26/2024 13:10:34 Imaging Results None recorded. Procedure Notes None recorded. Medical Equipment None Reported. Allergies Allergen ID Allergen Name Allergen Category Reaction Reaction Severity Criticality Documentation Date Start Date Code Code System Note Provider Name and Address Organization Details Recorded Time 14642 acetamino phen / oxycodone medicatio n Not available Not available Not available 02/26/2024 38867 3 RxKostas Duggan null, [facility], [facility] 4 09:31:06 57754 oxycodone medicatio n Not available Not available Not available 02/26/2024 7804 Eloisa Duggan null, [facility] 4 09:31:25 19205 amoxicill in medicatio n Not available Not available Not available 02/26/2024 723 RxKostas Duggan null, [facility], [facility] 4 09:31:33 05351 erythromy leisa medicatio n Not available Not available Not available 02/26/2024 4053 Eloisa Duggan null, [place] [facility] 4 09:31:43 86264 minocycli ne medicatio n Not available Not available Not available 04/01/2024 6980 Eloisa Duggan null, [facility] 4 11:19:40 41216 sertralin e medicatio n Not available Not available Not available 04/01/2024 28760 Eloisa Duggan null, [facility] 4 11:19:48 Medications Name Sig Start [...] alendronate 70 mg tablet TAKE 1 TABLET (70 MG) ORALLY EVERY WEEK active Not Available Not Available [...] sodium 2.5 mg tablet TAKE 4 TABLETS (10 MG) BY MOUTH EVERY WEEK active Not Available [...] Updated DateTime 10/21/2024 177.8 cm 22 kg/m2 46410.63 [facility] 08:55:09 Date Recorded Body height Body mass index (BMI) Body weight Provider Name and Address Organization Details Last Updated DateTime 08/12/2024 177.8 cm 22 kg/m2 86291.63 [facility] 08/12/2024 08:33:47 Social History None recorded. Functional Status Question Answer Note LastModified by Organizat ion Details LastModified Time Do you use any illicit or recreational drugs? No [email or web address] Information not available 02/26/2024 Do you or have you ever used any other forms of tobacco or nicotine? No [email or web address] Information not available 02/26/2024 What is your level of alcohol consumption? None Information not available 02/26/2024 Mental Status None recorded. Family History Nothing Reported. Medical History Condition Response Coronary Artery Disease N Gout Y Hyperthyroidism N MRSA N Blood Transfusion N Emphysema N COPD N Depression Y Gastrointestinal Disease N Anxiety Disorder Y Autoimmune disease N Arthritis Y Cancer Y Stroke N Neurologic Disorder Y Arrhythmia N Rheumatoid Arthritis Y Fibromyalgia N Kidney Disease N Adverse Reaction to Anesthesia N Brain Injury N Osteopenia N Bleeding Disorder N AIDS/HIV N Asthma N Amputation N Hepatitis N Pulmonary Embolism N Hypothyroidism N Pacemaker N Vascular Disease N High Cholesterol Y Liver Disease N Organ Transplant N Allergies/Hayfever Y Thyroid Problems N Anemia N Heart Attack (CA) N Diabetes N Seizures/Epilepsy N Congestive Heart Failure (CHF) N Reflux/GERD Y Sleep Apnea N Aneurysm N Heart Disease N Hypertension Y Osteoporosis Y Past Encounters Encounter ID Performer Location Encounter Start Date Encounter Closed Date Diagnosis/Indication Diagnosis SNOMED-CT Code Diagnosis ICD10 Code Diagnosis IMO Codes Diagnosis Note [id number] MD SUKHWINDER George[address] [address] 02/26/2024 09:18:47 02/26/2024 10:20:59 Pain of left wrist 6362319851 76306 M25.532 Additional diagnosis detail: Left wrist pain Closed fra cture of distal end of radius 02758072 S52.572A Additional diagnosis detail: Other closed intra-venkata cular fracture of distal end of left radius, initial encounter Osteoarthr osis of the carpometacarpal joint of the thumb 45927068 M18.12 Additional diagnosis detail: Primary osteoarthr itis of first carpometac arpal joint of left hand [id number] MD SUKHWINDER George[address] [address] 04/01/2024 11:09:01 04/01/2024 11:44:29 Closed fracture of distal end of radius 26454975 S52.572A Additional diagnosis detail: Other closed intra-venkata cular fracture of distal end of left radius, initial encounter Osteoarthr osis of the carpometacarpal joint of the thumb 65383310 M18.12 Additional diagnosis detail: Primary osteoarthr itis of first carpometac arpal joint of left hand Triggering of digit 2399 46307 M65.332 Additional diagnosis detail: Trigger middle finger of left hand, trigger ring finger of left hand [id number] MD BLANCO George [address] [address] 05/13/2024 10:26:20 05/13/2024 11:10:39 Closed fracture of distal end of radius 39258220 S52.572A Additional diagnosis detail: Other closed intra-venkata cular fracture of distal end of left radius, initial encounter Osteoarthr osis of the carpometacarpal joint of the thumb 08559568 M18.12 Additional diagnosis detail: Primary osteoarthr itis of first carpometac arpal joint of left hand Chronic pa in of left upper limb 3784246100 1612918 M25.512 G89.29 Additional diagnosis detail: Chronic left shoulder pain Pain of le ft shoulder joint 8294013669 1231604 M25.512 Additional diagnosis detail: Pain, joint, shoulder, left Arthritis of left glenohumeral joint 0229352552 592538 M19.012 Triggering of digit 2399 10462 M65.342 M65.332 Additional diagnosis detail: Trigger finger, left ring fingerAddi tional diagnosis detail: Trigger finger, left middle finger [id number] MD BLANCO George [address] [address] 08/12/2024 08:16:17 08/12/2024 08:54:36 Arthritis of left glenohumeral joint 5768654095 023987 M19.012 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 1360654578 488834 M18.12 [id number] MD BLANCO George [address] [address] 10/21/2024 08:09:50 10/21/2024 09:19:40 Osteoarthrosis of the carpometacarpal joint of the thumb 76024179 M18.12 Additional diagnosis detail: Primary osteoarthr itis of first carpometac arpal joint of left hand 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 8073908376 972918 M18.11 00562933 Osteoarthr itis of finger joint of right hand 6830937315 2201805 M15.7 [id number] MD BLANCO Siddiqui[address] [address] 11/23/2024 08:34:37 11/23/2024 09:36:16 Arthritis of left glenohumeral joint 8166507899 431978 M19.012 [id number] MD BLANCO Siddiqui[address] [address] 02/22/2025 08:42:05 02/22/2025 09:22:39 Arthritis of left glenohumeral joint 9725289475 355925 M19.012 [id number] MD BLANCO Siddiqui [facility] [address] [facility] [address] [place] [address] 06/07/2025 09:34:43 06/07/2025 10:04:05 Arthritis of left glenohumeral joint 3816910564 082663 M19.012 Health Concerns Section Related Observation LastModified by Organization Detai ls LastModified Time None Recorded Concern Status LastModified by Organization Details LastModified Time None Recorded Advance Directives Directive None Recorded Payers Insurance Date Sequence Insurance Name Policy Number Policy Carrillo Covered Member ID Carrillo Member ID Guarantor Name 06/04/[address] [facility]: MEDICARE PPO BLUE (MEDICARE REPLACEMENT PPO) [id number] Caleb Martínez [id number] Caleb Martínez Notes Date Note Type Note Provider Name and Address Organization Details Recorded Time 08/12/2024 text/html ROS as noted in the HPI He returns for follow-up of his left [...] were previously injected. Leidy Langford MD [address] [facility] [address], [place], [address], [place] [facility] 08/12/2024 09:36:08 10/21/2024 text/html ROS as noted in the HPI He presents for follow-up of bilateral thumb [...] helpful. 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 He does have pain in his left shoulder for which I gave him a cortisone injection on 08/12/2024 for glenohumeral joint arthritis. 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 Edwardo Salazar MD [address] [facility] [address], [place], [address], [facility] - [facility], [facility] 11/23/2024 09:41:56 02/22/2025 text/html ROS as noted in the HPI Caleb returns to the office today. He had 10 weeks of relief from this injection. He recently started Enbrel for his rheumatoid arthritis which he is unsure if it is helping. His daughter has returned from the hospital that his home. 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 Edwardo Salazar MD [address] [facility] [address], [place], [address], [place] [facility] 02/22/2025 09:21:17 06/07/2025 text/html ROS as noted in the HPI Caleb is doing well. The injection helped his started to wear off last his left shoulder sore His 's Alzheimer's has progressed as she is currently being cared for in assisted living facility he visits her daily PRIOR AR 5-6-25Paul returns to the office today. He had 10 weeks of relief from this injection. He recently started Enbrel for his rheumatoid arthritis which he is unsure if it is helping. His daughter has returned from the hospital that his home. 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 Edwardo Salazar MD [address] [place] [address], [address], [place] [facility] 06/07/2025 10:02:52
--- OUTSIDE RECORDS SUMMARY | 2025-08-16 02:29 | XMS_ITS ---
Author Organization [facility] Address [address] [place] [address] Phone Care Team Providers Care Animal Researcher Name Role Phone Adalberto Zepeda Primary Care Provider [phone] Hide Buffer Care Management Status:Ongoing (Active) Start date:05/19/2025 Enrollment date:05/27/2025 Enrollment reason:Referred by Care Team Related social drivers of health:Housing Instability, Food Access & Nutrition, Access to Healthcare, TH Health Literacy, Financial Risk, Transportation, Social Isolation, Food Risk Overview Referral by Josephine - dayna patient - depressed, in asst living, connected Case Team Name Relationship Phone Filomena JONES(Responsible Staff) Care Man ager [phone] Continued Care and Services Coordination
[2025-08-16 02:35] LABS: Hematocrit 31.9 % (42.0-52.0); Hemoglobin 10.6 g/dl (14.0-18.0); Imm Gran Abs Auto 0.04 X10*3/uL (0.00-0.03); Imm Gran Pct Auto 0.5 % (0.0-0.4); Lymphocytes Absolute Auto 1.2 X10*3/uL (1.2-4.9); Mean Corpuscular HGB Conc 33.2 g/dl (31.0-36.0); Mean Corpuscular Hemoglobin 32.1 pg (27.0-33.0); Mean Corpuscular Volume 96.7 fL (80.0-98.0); NRBC Abs Auto 0.000 X10*3/uL (0.0-0.012); NRBC Pct Auto 0.0 /100WBC (0.0-0.2); Platelet Count 218 X10*3/uL (160-400); Red Blood Count 3.30 X10*6/uL (4.60-5.80); White Blood Count 7.7 X10*3/uL (4.8-10.8)
[2025-08-16 02:40] LABS: Alanine Aminotransferase 16 U/L (0-40); Albumin Level 3.9 g/dL (3.5-5.0); Alkaline Phosphatase 85 U/L (39-117); Anion Gap 14 (12-20); Aspartate Amino Transferase 34 U/L (5-37); Blood Urea Nitrogen 19 mg/dL (9-16); Calcium 8.7 mg/dL (8.4-10.2); Carbon Dioxide 23 mmol/L (22-29); Chloride 105 mmol/L (96-108); Creatinine Clr Calc Pharmacy 40.4; Estimated Glomerular Filt Rate 48; Potassium 4.0 mmol/L (3.3-5.1); Sodium 138 mmol/L (135-145); Total Protein 6.9 g/dL (6.5-8.0)
[2025-08-16 02:46] LABS: Troponin-I High Sensitivity 26.3 ng/L (<3.5-35.0)
--- NOTE | 2025-08-16 03:51 | ED_ITS ---
HPI - Fall General Chief Complaint: Fall Stated Complaint: FALL W/ MULTIPLE ENERGIES Time Seen by Provider: 08/16/25 03:49 Source: patient Mode of arrival: ambulatory Limitations: no limitations History of Present Illness ED Provider: Manuel HOFFMAN HPI Narrative: The patient is an 79-year-old male with a history of Parkinson's disease, CKD, cardiomyopathy, and rheumatoid arthritis presenting to the ED for evaluation of multiple skin tears and a head laceration following a fall at home. Patient reports he suffered a mechanical slip and fall while trying to get out of bed, resulting in a laceration to the back of his head, as well as skin tears of the left shoulder, elbow and conner. The patient denies chest pain, shortness of breath, headache, focal neurological deficit, near-syncope, or other prodrome prior to or following the fall. The patient denies loss of consciousness and does not take blood thinners. Related Data Home Medications ?Medication ?Instructions ?Recorded ?Confirmed amlodipine 10 mg tablet 10 mg PO DAILY 07/11/2207/14 bupropion HCl 100 mg tablet 200 mg PO DAILY 07/11/22 1 entacapone 200 mg tablet 200 mg PO .COMPLEX 07/11/22 07/28/25 lisinopril 40 mg tablet 40 mg PO DAILY 07/11/2207/14 metronidazole 0.75 % topical cream 1 appl topical IZAIAH Y 07/11/22 07/28/25 omeprazole 20 mg capsule,delayed 20 mg PO DAILY 07/28/25 release ropinirole 2 mg tablet 2 mg PO BID 07/11/22 5 tamsulosin 0.4 mg capsule 0.4 mg PO BEDTIME 07/11/22 1 ammonium lactate 12 % topical cream 1 appl topical CHAPIN LY 11/29/22 07/28/25 aspirin 81 mg tablet,delayed 81 mg PO DAILY 12/30/23 1 release paroxetine HCl 10 mg tablet (Paxil) 10 mg PO DAILY 07/28/25 quetiapine 100 mg tablet 100 mg PO BEDTIME 01/13/25 1 Previous Rx's ?Medication ?Instructions ?Recorded diclofenac sodium 1 % topical gel 4 g topical QID #100 grams 04/26/23 atorvastatin 40 mg tablet 40 mg PO DAILY #90 tabs 11/20 07/14 carbidopa 25 mg-levodopa 100 mg See Rx Instructions PO .6 x a day 01/13/25 tablet #720 tabs alendronate 70 mg tablet 70 mg PO QWEEK #12 tabs 01/18 04/13 leucovorin calcium 10 mg tablet 20 mg (2 x 10 mg) PO Q WEEK #24 tabs 02/02/25 baclofen 10 mg tablet 10 mg PO BEDTIME #30 tabs adalimumab 40 mg/0.4 mL 40 mg (0.4 mL) subcut Q2W #2 ea 06/03/25 subcutaneous pen kit (Humira(CF) Pen) methotrexate sodium 2.5 mg tablet 10 mg (4 x 2.5 mg) P O QWEEK 90 07/08/25 days #52 tabs Allergies Allergy/AdvReac Type Severity Reaction Status Date / Time sertraline Allergy Intermediate nausea,dizz Verified 08/16/25 02:02 iness acetaminophen (From Percocet) Allergy Unknown unknown Verified 08/16/25 02:02 amoxicillin Allergy Unknown unknown Verified 08/16/25 02:02 erythromycin base Allergy Unknown unknown Verified 08/16/25 02:02 minocycline Allergy Unknown unknown Verified 08/16/25 02:02 oxycodone (From Percocet) Allergy Unknown unknown Verified 08/16/25 02:02 polymyxinb tmp Allergy Intermediate swelling, Uncoded 04/26/25 11:11 rash Review of Systems 2 Review of Systems: Yes all other systems are reviewed and are negative [facility] Past Medical History Medical History (Updated 08/16/25 @ 05:50 by Manuel Mcmanus PA-C) Neck pain 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 Gout Footdrop BPH (benign prostatic hyperplasia) Hypertension Diverticulosis Thrombocytopenia Acid reflux Basal cell carcinoma Cholelithiasis Nephrolithiasis PTSD (post-traumatic stress disorder) Parkinsons Osteoarthritis of hands, bilateral Chronic sinus bradycardia Restless leg Dyslipidemia Surgical History S/P cardiac cath S/P trigger finger release Hx of endoscopy S/P TURP Hx of tonsillectomy Hx of lithotripsy Hx of colonoscopy Family History Family History Mother Arthritis Social History Social History Household Members: Spouse Housing: House Do you presently have visiting nurse or other home services: No Alcohol intake: never Patient Tobacco Use Status: Never used Tobacco Smoked in Last 30 Days: No e-Cigarette/Vaping Use: Never Used Use of substances other than those prescribed or required for medical reasons: No Advance Directives: Yes Advance Directives Information Provided: Yes Advance Directives on File: No service: Yes Current occupational status: retired 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 Vital signs as documented. HEAD: There is a 2 cm non gaping laceration noted to the left occiput, head is otherwise atraumatic, normocephalic. EYES: EOMs grossly intact, pupils equal, conjunctiva clear, no exudate. ENT: Nares patent, no discharge. Airway patent, no audible stridor, visible mucosa is pink and moist without noted lesions. NECK: Trachea is midline, no obvious masses or gross abnormalities. CHEST: Symmetric movement, normal appearance. LUNGS: LS present and CTAB, no w/r/r. Non-labored work of breathing. CARDIAC: Regular Rhythm, S1/S2 appreciated, no murmurs, rubs or gallops. ABDOMEN: Abdomen soft and non-tender x4 quadrants, no palpable masses or organomegaly. : Deferred. EXTREMITIES: Normal tone, moves all extremities spontaneously without reported pain. Right upper extremity demonstrates 2+ radial pulse, distal CSM intact. Skin tear is present as designated and skin exam, no other obvious acute injury or deformity noted. NEURO: Alert and oriented x3, CN II-XII appear grossly intact. Cerebellar Functioning demonstrates a tremor, but is otherwise grossly intact. No obvious sensory or motor deficits. Speech clear and appropriate. PSYCH: normal affect, appropriate eye contact, fluid speech, with appropriate response to questioning. No reported suicidality or homicidality. SKIN: Warm, dry, color appropriate, normal turgor. There is a 1 cm x 2 cm superficial skin tear overlying the left AC joint, a 3 cm x 4 cm superficial skin tear of the lateral left elbow, and a 2 cm x 3 cm superficial skin tear of the left mid conner. No other rashes noted. Medications Administered Discontinued Medications Generic Name Dose Route Start Last Admin Trade Name Oleg PRN Reason Stop Dose Admin Bupropion HCl 200 mg 08/16/25 04:11 08/16/25 04:28 Bupropion Hcl 100 Mg Tablet PO 08/16/25 04:12 200 mg ONCE ONE Administration Carbidopa/Levodopa 1.5 tab 08/16/25 04:11 08/16/25 04:29 Carbidopa/Levodopa 25/100 Tablet PO 08/16/25 04:12 1.5 tab ONCE ONE Administration Entacapone 200 mg 08/16/25 04:11 08/16/25 04:30 Entacapone 200 Mg Tablet PO 08/16/25 04:12 Not Given ONCE ONE Lidocaine HCl 5 ml 08/16/25 04:13 08/16/25 04:29 Lidocaine Hcl 1 % Mpf 5 Ml Vial INFILTRATI 08/16/25 04:14 5 ml ONCE ONE Administration Procedures Laceration Laceration 1: Site: scalp Side (If applicable): left Size (cm): 2 Description: linear and clean Depth: simple, single layer Local Anesthetic: lidocaine 1% Amount of anesthesia used (mL): 5 Pre-repair: wound explored and deep structures intact Skin layer closed with: mireya Number of closing items:: 4 Technique: mireya Medical Decision Making Medical Decision Making [facility] Narrative: 5:44 AM 08/16/2025 (Kadeem HOFFMAN): The patient is an 79-year-old male with a history of Parkinson's disease, CKD, cardiomyopathy, and rheumatoid arthritis presenting to the ED for evaluation of multiple skin tears and a head laceration following a fall at home. Patient reports he suffered a mechanical slip and fall while trying to get out of bed, resulting in a laceration to the back of his head, as well as skin tears of the left shoulder, elbow and conner. The patient denies chest pain, shortness of breath, headache, focal neurological deficit, near-syncope, or other prodrome prior to or following the fall. The patient denies loss of consciousness and does not take blood thinners. In the ED patient has a 2 cm laceration to the left occiput, a 1 cm x 2 cm superficial skin tear overlying the left AC joint, a 3 cm x 4 cm superficial skin tear of the lateral left elbow, and a 2 cm x 3 cm superficial skin tear of the left mid conner. The patient was evaluated with laboratory workup, EKG, CT head and neck, and left shoulder film. The patient's radiologic workup was negative for acute fracture or other traumatic injury. The patient's EKG shows no evidence of ischemia, troponin is negative, laboratory evaluation shows no leukocytosis, significant anemia, or electrolyte abnormality. The patient's BUN and creatinine is slightly abnormal at 19 and 1.41, largely unchanged from baseline CKD. The patient's LFTs are unremarkable. The patient was initially very anxious and tremulous, reports he was almost due for his morning Parkinson's medications. Patient received his morning Parkinson medications as well as Wellbutrin and reports significant improvement in symptoms and anxiety. The patient will be ambulated and if successful will be discharged to follow up with PCP. Lab Data MDM Lab Attestation statement: I reviewed the patient's lab results. 08/16/25 02:21 08/16/25 02:21 Labs: Lab Results 08/16/25 Range/Units 02:21 WBC 7.7 (4.8-10.8) X10*3/uL RBC 3.30 L (4.60-5.80) X10*6/uL Hgb 10.6 L (14.0-18.0) g/dl Hct 31.9 L (42.0-52.0) % MCV 96.7 (80.0-98.0) fL MCH 32.1 (27.0-33.0) pg MCHC 33.2 (31.0-36.0) g/dl RDW 14.0 (11.0-16.0) % Plt Count 218 D (160-400) X10*3/uL MPV 9.1 L (9.4-12.4) fL Immature Gran % (Auto) 0.5 H (0.0-0.4) % Neut % (Auto) 72.7 (45-73) % Lymph % (Auto) 15.5 L (20-40) % [place] % (Auto) 8.7 (2-11) % Eos % (Auto) 2.2 (0-4) % Baso % (Auto) 0.4 (0-2) % Lymph # (Auto) 1.2 (1.2-4.9) X10*3/uL [place] # (Auto) 0.7 (0.1-1.2) X10*3/uL Eos # (Auto) 0.2 (0.0-0.4) X10*3/uL Baso # (Auto) 0.0 (0.0-0.2) X10*3/uL Abs Immat Gran (auto) 0.04 H (0.00-0.03) X10*3/uL Absolute Neuts (auto) 5.6 (2.0-8.3) x10*3/uL Absolute Nucleated RBC 0.000 (0.0-0.012) X10*3/uL Nucleated RBC % (auto) 0.0 (0.0-0.2) /100WBC Sodium 138 (135-145) mmol/L Potassium 4.0 (3.3-5.1) mmol/L Chloride 105 (96-108) mmol/L Carbon Dioxide 23 (22-29) mmol/L Anion Gap 14 (12-20) BUN 19 H (9-16) mg/dL Creatinine 1.41 H (0.5-1.4) mg/dL Estim Creat Clear Calc 40.4 Estimated GFR 48 Random Glucose 131 H (60-115) mg/dL Calcium 8.7 (8.4-10.2) mg/dL Total Bilirubin 0.5 (0.0-1.0) mg/dL AST 34 (5-37) U/L ALT 16 (0-40) U/L Alkaline Phosphatase 85 (39-117) U/L Troponin I High Sens 26.3 (<3.5-35.0) ng/L Total Protein 6.9 (6.5-8.0) g/dL Albumin 3.9 (3.5-5.0) g/dL Independent Interpretation I performed an independent interpretation of an: EKG (EKG demonstrates a sinus rhythm with a rate of 67, with left axis deviation, no evidence of acute ischemia, no ST elevation, no ectopy. QTC 460. Compared to previous on 10/21/2023 left axis deviation is new, no other significant morphology changes.) Radiology Impression Discussion of test interpretation with radiology: I have reviewed the radiologist's reading. Radiologist Impression: CT cervical spine without contrast Comparison: None provided Findings: Normal vertebral body alignment. Multilevel spondylosis, most pronounced at C5-6 and C6-7, as well as bilateral facet arthropathy. No acute fractures or dislocations. Visualized intracranial contents are unremarkable. No cervical fluid collections or masses. No consolidation or effusion at the lung apices. IMPRESSION: No acute findings. This document has been electronically signed by: Bradly Swain MD on 08/16/2025 03:45:52 CT head without contrast Comparison: None provided Findings: No intra-axial mass, midline shift, hydrocephalus, or acute hemorrhage. Parenchymal atrophy and minimal white matter disease. Clear mastoid air cells. Diffuse paranasal sinus disease, [id number]-left. The orbits are within normal limits. No skull fracture. IMPRESSION: 1. No acute intracranial findings. This document has been electronically signed by: Bradly Swain MD on 08/16/2025 03:48:08 3 view left shoulder Comparison: None provided Findings: No fractures or dislocations. Soft tissue structures appear intact. IMPRESSION: No acute osseous abnormality is identified. This document has been electronically signed by: Rufino Banerjee on 08/16/2025 05:17:44 External Record Review External record reviewed: Outpatient record and Prior outpatient labs Prescription Management I considered prescription management with: Pain Medication Discharge Plan Discharge Clinical Impression: Multiple skin tears, Parkinson disease Fall Qualifiers: Encounter type: initial encounter Qualified Code(s): W19.XXXA - Unspecified fall, initial encounter Laceration of scalp Qualifiers: Encounter type: initial encounter Qualified Code(s): S01.01XA - Laceration without foreign body of scalp, initial encounter Patient Disposition: Home, Self-Care Instructions: Staple Care (ED), Skin Tear (ED), Head Laceration (ED) Additional Instructions: Thank you for choosing [facility]'s Emergency Department for your care today. Thankfully your laboratory evaluation, EKG, shoulder x-ray, and CT head and neck today showed no evidence of acute fracture or other dangerous injury as a result of your fall this morning. At this time there is no indication for admission to the hospital or continued ED observation, and it is safe to discharge you home. Your fall did result in a laceration to the back of your scalp, this was repaired with 4 mireya which will need to be removed in 5-7 days. Please return to the emergency department or follow-up with your primary care provider for removal of the mireya. You can apply bacitracin to the laceration twice daily for the first 2-3 days. Then please keep the area clean and dry, but uncovered and exposed to the air to allow the laceration to dry out and heal. While it is perfectly acceptable to allow water to run over the mireya while showering, please do not swim, or submerge the laceration in standing water until the mireya are removed. Your fall also resulted in a superficial skin tear of your left shoulder, left elbow, and left mid conner. Please change these dressings twice a day. You may apply bacitracin and a nonadhering gauze with the dressing change for the next 2-3 days, then please apply only a nonadhering gauze without bacitracin, again to allow the wounds to begin to dry out and heal. Please monitor the skin tears for any evidence of developing infection. Please continue taking all your regularly prescribed medications as directed. Please stay well hydrated and get plenty of rest. Please follow up with your primary care provider for wound re-evaluation, additional management of your symptoms, and continued preventative care. If you do not have a primary care physician, please call the [facility] at [phone] to establish a new primary care physician. While waiting to establish your new primary care physician, you can call our Walk[facility]in [facility] at [phone] for non-emergency needs. Please return to the emergency department if you develop a severe or sudden change in your symptoms, a fever over 100.4 that does not improve with Tylenol or Ibuprofen, recurrent vomiting, or any other new or worsening symptoms or concerns. Prescriptions: No Action diclofenac sodium 1 % gel 4 g topical QID Qty: 100 1RF atorvastatin 40 mg tablet 40 mg PO DAILY Qty: 90 3RF methotrexate sodium 2.5 mg tablet 10 mg PO QWEEK 90 Days Qty: 52 1RF ammonium lactate 12 % cream 1 appl topical DAILY amlodipine 10 mg tablet 10 mg PO DAILY bupropion HCl 100 mg tablet 200 mg PO DAILY omeprazole 20 mg capsule,delayed release(DR/EC) 20 mg PO DAILY ropinirole 2 mg tablet 2 mg PO BID lisinopril 40 mg tablet 40 mg PO DAILY tamsulosin 0.4 mg capsule 0.4 mg PO BEDTIME metronidazole 0.75 % cream 1 appl topical DAILY entacapone 200 mg tablet 200 mg PO .COMPLEX Rx Instructions: administer at the same time as l-dopa/carbidopa dose Frequency: 6 x a day with carbi alendronate 70 mg tablet 70 mg PO QWEEK Qty: 12 1RF leucovorin calcium 10 mg tablet 20 mg PO QWEEK Qty: 24 1RF Rx Instructions: Take the day after you take methotrexate baclofen 10 mg tablet 10 mg PO BEDTIME Qty: 30 0RF Humira(CF) Pen 40 mg/0.4 mL pen injector kit 40 mg subcut Q2W Qty: 2 5RF aspirin 81 mg tablet,delayed release (DR/EC) 81 mg PO DAILY paroxetine HCl [Paxil] 10 mg tablet 10 mg PO DAILY quetiapine 100 mg tablet 100 mg PO BEDTIME carbidopa-levodopa 25-100 mg tablet See Rx Instructions PO .6 x a day Qty: 720 6RF Rx Instructions: 1.5 tabs at 7am,1pm,7pm , 1 tab at 10am,4pm,10pm orally 6 X A DAY; Referrals: Adalberto Zepeda PA [Primary Care Provider, Internal Medicine] Clinical Impression: Multiple skin tears; Parkinson disease; Fall; Laceration of scalp Print Language: Divehi
[2025-08-16 04:19] VITALS: BP 139/70; PULSE 67; RESP 14; TEMP 36.5; O2SAT 97
[2025-08-16] MEDS: Lidocaine HCl 1 % MPF 5 ML VIAL INFILTRATI (04:29)
[2025-08-16 06:00] VITALS: BP 114/66; PULSE 69; RESP 12; TEMP 36.6; O2SAT 96
[2025-08-16 06:27] VITALS: BP 114/66; PULSE 69; RESP 12; TEMP 36.6; O2SAT 96
== END 2025-08-16 06:38 | disposition home or self-care (01) ==
PROVIDERS: Emergency Provider Emergency Medicine; PCP Physician Assistant Medical
DX: S01.01XA Laceration without foreign body of scalp, initial encounter (principal); G20.A1 Parkinson's disease without dyskinesia, without mention of fluctuations; R94.31 Abnormal electrocardiogram [ECG] [EKG]; R51.9 Headache, unspecified; M54.2 Cervicalgia; M25.512 Pain in left shoulder; X58.XXXA Exposure to other specified factors, initial encounter; W06.XXXA Fall from bed, initial encounter; Y93.9 Activity, unspecified; Y92.003 Bedroom of unspecified non-institutional (private) residence as the place of occurrence of the external cause; Y99.8 Other external cause status; Z79.899 Other long term (current) drug therapy
CPT/HCPCS: 12031; 36415; 70450; 72125; 73030; 80053; 84484; 85025; 93005; 99284; J2003

== ENCOUNTER → 2025-08-16 02:11 | Outpatient (BNV) | payer MEDICARE, SELFPAY | PROVIDERS: Emergency Provider Emergency Medicine; PCP Physician Assistant Medical; Visit Provider Internal Medicine | DX: R94.31 Abnormal electrocardiogram [ECG] [EKG] (principal); Z04.3 Encounter for examination and observation following other accident | CPT/HCPCS: 93010 ==

== ENCOUNTER → 2025-08-16 02:37 | Outpatient (BNV) | payer MEDICARE, SELFPAY | PROVIDERS: Emergency Provider Emergency Medicine; PCP Physician Assistant Medical; Visit Provider Student in an Organized Health Care Education/Training Program | DX: S09.90XA Unspecified injury of head, initial encounter (principal); M25.512 Pain in left shoulder; W18.30XA Fall on same level, unspecified, initial encounter | CPT/HCPCS: 70450; 72125; 73030 ==

== ENCOUNTER 2025-10-04 07:57 | Outpatient (REF) | payer MEDICARE, SELFPAY ==
--- OUTSIDE RECORDS SUMMARY | 2025-01-14 04:20 | XMS_ITS ---
Author Organization [facility] Address [address] [place] [address] Drive [address] [place] [address] Care Team Providers Care Radioactive Waste Disposal Dispatcher Name Role Phone Raman WARE, Vandana Primary Care Provider Unavail Eugene Hoang Jr Unavailable REASON FOR VISIT dysphagia Encounters Encounter Location Date Provider Diagnosis [facility] Out[place] [address] [place], [place] [phone] 01/14/2025 Eugene Iyer Jr Dysphagia R13.10 Assessments Encounter Date Diagnosis (ICD Code) Assessment Notes Treatment Notes Treatment Clinical Notes Section Notes 01/14/2025 Dysphagia (ICD-10 - R13.10) Plan Of Treatment Next Appt Details Provider Name:Eugene domingo Jr, 04/17/2026 09:40:00 AM, [address] [place] [address], [address], [place], [address], Progress Notes * KOFI STANLEYDOB:1945 (79 yo M)Acc No.[id number]:01/14/2025 EGD/MAC Patient: KOFI ETIENNE Provider: Fran Iyer MD :1945 A ge:79 Y S ex:Male Date:01/14/2025 Address:[id number] Pcp:Vandana Camargo NP Subjective: * Chief Complaints: * D ysphagia Assessment: * Assessment: 1. D ysphagia - R13.10 (Primary) Plan: * Procedure Codes: 4 3239 UPPER GI ENDOSCOPY, [id number] ESOPH ENDOSCOPY, DILATION, Modifiers: 59 Billing Information: * Procedure Codes: 30067 UPPER GI ENDOSCOPY, BIOPSY. 28380 ESOPH ENDOSCOPY, DILATION. Modifiers: 59 * The named appointment provid er may or may not be the originator of this progress note, and it is not deemed complete until electronically signed by the appointment provider. Sign off status: Pending * Provider: Fran Iyer MD Date: 0 01/14/2025 Generated for Rona leung/Hesham/Petersonitting on: 1 12/05/2024 08:07 AM EST
--- OUTSIDE RECORDS SUMMARY | 2025-10-03 09:00 | XMS_ITS | Encounter Summary ---
Author Organization [employer] Address [address] [place] [address] Care Team Providers Care Grouter Helper Name Role Phone Adalberto Zepeda Primary Care Provider [phone] Reason for Visit * Reason Comments Wound Care Encounter Details Date Type Department Care Team (Late st Contact Info) Description 10/03/2025 9:00 AM EST Office Visit [facility] [address] [place] [phone] Imelda Delatorre MD [address] [place] [phone] Skin tear of left elbow without [...] care for your loved ones. For example, exceptional children teacher or elderly care for an older adult? [...] any questions or concerns, please contact the [facility] [place] at . Follow up(s)/ Referrals: N/A Jail: N/A Additional Orders: N/A Lidocaine Orders: Apply Lidocaine 5% Topical Ointment prior to debridements at Wound Care appointments Edema Control: (If your compression wrap(s) feel to tight, please elevate your leg(s) about heart level. If your wrap(s) are becoming painful and/or you loose sensation of toes/ are having toe discoloration (a change from your baseline), please remove / unwrap compression and notify [facility] [place] at . ) N/A Offloading: N/A Negative [...] [facility] [place] [address] Office Visit Visit Date: 10/03/2025 Patient Name: Caleb Martínez Date of : 1945 PCP: YASMIN Ziegler HPI: Caleb returns for follow-up skin changes of his left elbow left shoulder and left knee, treatedwith mupirocin dressing change daily. Patient has a history of Parkinson's disease, hypertension, PTSD, has thin atrophic skin. This past weekend when [place] was [place] [facility] he sustained another evaluation skin tear of [...] any questions or concerns, please contact the [facility] at . Follow up(s)/ Referrals: N/A Jail: N/A Additional Orders: N/A Lidocaine Orders: Apply Lidocaine 5% Topical Ointment prior to debridements at Wound Care appointments Edema Control: (If your compression wrap(s) feel to tight, please elevate your leg(s) about heart level. If your wrap(s) are becoming painful and/or you loose sensation of toes/ are having toe discoloration (a change from your baseline), please remove / unwrap compression and notify [facility] at . ) N/A Offloading: N/A Negative [...] Discharge Patient directed to check out at front sight attacher and collect visit summary with wound care [...] Description 10/17/2025 9:00 AM EST Clinical Support [facility] [address] [place] [phone] 11/30/2025 9:00 AM EST Office Visit Adult [address] [phone] Adalberto Zepeda PA [address] [place] [phone] 06/01/2026 9:15 AM EDT Office Visit [facility] Hematology Oncology [address] [place] [phone] Katja Lainez MD [address] [place] [phone] documented as of this encounter Goals [...] other sites limited to breakdown of skin (CMS/[facility] V24, CMS/[facility] V28) Skin tear of left forearm without [...] documented as of this encounter Care Teams Grouter Helper Relationship Specialty Start Date End Date Adalberto Zepeda PA [address] [place] [phone] PCP - General Internal Medicine 08/18/24 documented as of this encounter
--- OUTSIDE RECORDS SUMMARY | 2025-10-04 08:07 | XMS_ITS | Continuity of Care Document ---
Author Organization [place] [facility] Steph Meyer [facility] [place] Address [address] [facility] [address] [place] [address] Care Team Providers Care Frozen Yogurt Maker Name Role Phone JENNIFER ESPOSITO Referring Provider JENNIFER Palacios Primary Care Provider Assessment Encounter Date Assessment Date Assessment LastModified by Organization Details LastModified Time 09/06/2025 09/06/2025 IMPRESSION: 79-year-old [id number] nt man with left shoulder cuff tear arthropathy PLAN: Operative intervention would be in the [...] for repeat clinical evaluation and treatment discussion. [email or web address] Not available 09/06/2025 09:33:20 Plan of Treatment Reminders Order Date Submit Date Provider Last Modified By Organization Details Last Modified Time Details Appointments FOLLOW UP 2025 08:30A M Hong Salazar MD Not available Not available Not available Lab None recorded. Referral None recorded. Procedures None recorded. Surgeries None recorded. Imaging XR, shoulder, 2 or more view 2024 025 [email or web address] [facility], [address], [address], [place], [address], 09/10/2025 11:58:28 Medication Orders lidocaine (PF) 10 mg/mL (1 %) injection solution 2024 025 [email or web address] Not available 09/07/2025 14:26:41 Marcaine (PF) 0.5 % (5 mg/mL) injection solution 2024 025 [email or web address] Not available 09/07/2025 14:26:41 triamcino lone acetonide 40 mg/mL suspensio n for injection 2024 025 [email or web address] Not available 09/07/2025 14:26:41 Patient TargetsNo targets recorded. Patient Instructions Encounter Date Encounter Id Patient Instructions Last Modified By Organization Details Last Modified Time 09/06/2025 [id number] Imaging: All imaging was personally reviewed by me. LEFT shoulder four view radiographs including AP, true AP (Grashey), scapular-Y, and axillary views were ordered by me, obtained today, reviewed with the patient, and independently interpreted by me as demonstrating proximal humeral migration with acetabularization of the acromion and moderate glenohumeral arthritic change consistent with rotator cuff tear arthropathy, [place] grade 3. Not available 09/06/2025 09:33:35 Reason for Referral None Reported. 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 69293578 Active 2023 Leidy frost MD [address], [place], [address], [place] [facility] 4 13:08:36 Arthritis of left glenohumera l joint 5248035225993 100 Active 2023 Leidy frost MD [address], [place], [address], [place] [facility], [facility] 4 11:54:47 Triggering of digit 243989533 Active 2023 Leidy frost MD [address], [place], [address], [place] [facility] 4 11:56:43 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 Procedures Surgical History Date Name Laterality Status Provider Name and Address Organization Details Recorded Time 09/06/20 AJR Shoulder GH Inj completed Edwardo Salazar MD [address], [place], [address], [place] [facility] 09/06/2025 09:32:37 06/07/20 AJR Shoulder GH Inj completed Edwardo Salazar MD [address], [place], [address], [place] [facility] 06/07/2025 09:44:41 02/23/20 25 AJR Shoulder GH Inj completed Edwardo Salazar MD [address], [place], [address], [place] [facility] 02/22/2025 09:19:33 11/23/19 25 AJR Shoulder GH Inj completed Edwardo Salazar MD [address], [place], [address], [place] [facility] 11/23/2024 09:36:38 10/21/19 25 LES finger joint injection completed Leidy Langford MD [address], [place], [address], [place] [facility] 10/21/2024 09:05:14 08/12/20 24 LES finger joint injection completed Leidy Langford MD [address], [place], [address], [place] [facility] 08/12/2024 09:33:13 08/12/20 24 LES Subacromial Shoulder Inj completed Leidy Langford MD [address], [place], [address], [place] [facility] 08/12/2024 09:32:56 05/13/20 24 LES Subacromial Shoulder Inj completed Leidy Langford MD [address], [place], [address], [place] [facility] 05/13/2024 11:53:24 04/01/20 24 LES trigger finger/De Quervain's injection completed Leidy Langford MD [address], [place], [address], [place] [facility] 04/01/2024 11:47:54 02/26/20 24 LES finger joint injection completed Leidy Langford MD [address], [place], [address], [place] [facility] 02/26/2024 13:10:34 Imaging Results None recorded. Procedure Notes None recorded. Medical Equipment None Reported. Allergies Allergen ID Allergen Name Allergen Category Reaction Reaction Severity Criticality Documentation Date Start Date Code Code System Note Provider Name and Address Organization Details Recorded Time 515022 minocycli ne hydrochlo ride medicatio n Not available Not available Not available 09/05/20252017 6979 RxNorm Not Available [facility] External Data Service - prod 5 10:57:05 688361 polymyxin B sulfate medicatio n Not available Not available Not available 09/05/20252018 388 RxNorm Not Available [facility] External Data Service - prod 5 10:57:05 698084 acetamino phen / oxycodone medicatio n Not available Not available [facility] 09/05/2025 38853 3 RxNorm Not Available [facility] External Data Service - prod 5 10:57:15 155097 polymyxin B medicatio n rash Not available [facility] 09/05/20252018 8536 RxNorm Not Available [facility] External Data Service - prod 5 10:58:09 61268 acetamino phen / oxycodone medicatio n Not available Not available Not available 02/26/2024 01639 3 RxNorm Cassidy Duggan null, [place] [facility], [facility] 4 09:31:06 26058 oxycodone medicatio n Not available Not available Not available 02/26/2024 7804 RxNorm Cassidy Duggan null, [place] [facility], [facility] 4 09:31:25 89351 amoxicill in medicatio n Not available Not available Not available 02/26/2024 723 RxNorm Cassidy Duggan null, [place] [facility] 4 09:31:33 13993 erythromy leisa medicatio n Not available Not available Not available 02/26/2024 4053 RxNorm Cassidy Duggan null, [place] [facility] 4 09:31:43 23679 minocycli ne medicatio n Not available Not available Not available 04/01/2024 6980 RxNorm Cassidy Duggan null, [place] [facility] 4 11:19:40 43998 sertralin e medicatio n Not available Not available Not available 04/01/2024 16668 RxNorm Cassidy Duggan null, [place] [facility] 4 11:19:48 Medications Name Sig Start [...] tramadol 50 mg tablet TAKE 1 TABLET (50MG TOTAL) BY MOUTH EVERY 6 HOURS NEEDED FOR PAIN MODERATE UP TO 7 DAYS MAX 200MG active Not Available Not Available No t Available methotrexat e sodium 2.5 mg tablet TAKE 4 TABLETS (10MG) BY MOUTH EVERY WEEK FOR 90 DAYS active Not Available Not Available No [...] Available mupirocin 2 % topical ointment APPLY TOPICALLY 1 (ONE) TIME EACH DAY. APPLY TO WOUNDS DAILY active Not Available Not Available No t Available hydroxychlo roquine 200 mg tablet TAKE 1 TABLET BY MOUTH TWICE A DAY FOR 5 DAYS A WEEK AND 1 TABLET DAILY 2 DAYS A WEEK 08/12 completed Not Available Not Available Not Available lisinopril 40 mg tablet TAKE 1 TABLET DAILY active Not Available Not Available No t Available tobramycin 0.3 %-dexametha sone 0.1 % eye drops,suspe nsion INSTILL 1 DROP INTO RIGHT EYE FOUR TIMES A DAY DIRECTED FOR 7 DAYS. 09/03 completed Not Available Not Available Not Available bupropion HCl XL 300 mg 24 hr tablet, extended release Take 1 tablet every day by oral route. active Not Available Not Available No t Available Marcaine (PF) 0.5 % (5 mg/mL) injection solution Take 4 mL by injection route. 2024 active Not Available Not Available Not Avai lable meloxicam 10/21 completed Not Available Not Available Not Available lorazepam @ HS 08/12 completed Not Available Not Available Not [...] t Available Vitals None Recorded Social History None recorded. Functional Status Question Answer Note LastModified by Organizat ion Details LastModified Time Do you use any illicit or recreational drugs? No [email or web address] Information not available 02/26/2024 Do you or have you ever used any other forms of tobacco or nicotine? No Information not available 02/26/2024 What is your level of alcohol consumption? None [email or web address] Information not available 02/26/2024 Mental Status None [...] Amputation N Reflux/GERD Y Sleep Apnea N Aneurysm N Hepatitis N Heart Disease N Pulmonary Embolism N Hypertension Y Osteoporosis Y Past Encounters Encounter ID Performer Location Encounter Start Date Encounter Closed Date Diagnosis/Indication Diagnosis SNOMED-CT Code Diagnosis ICD10 Code Diagnosis IMO Codes Diagnosis Note [id number] MD BLANCO Siddiqui [address] [place] [address] 09/06/2025 08:43:59 09/06/2025 09:24:46 Arthritis of left glenohumeral joint 5642283665 537526 M19.012 Health Concerns Section Related Observation LastModified by Organization Detai ls LastModified Time None Recorded Concern Status LastModified by Organization Details LastModified Time None Recorded Payers Encounter Date Sequence Insurance Name Policy Number Policy Carrillo Covered Member ID Carrillo Member ID Guarantor Name 09/06/2025 1 [facility]: [facility]ICARE PPO BLUE (MEDICARE REPLACEMENT PPO) [id number] Caleb Lai Mauricio [id number] Caleb Martínez Notes Date Note Type Note Provider Name and Address Organization Details Recorded Time 09/06/2025 text/html ROS as noted in the HPI Caleb presents to the office today. The injection helped however over the last 3 weeks he has had a series of falls he fell twice on his left shoulder. These falls have resulted in skin tears for which he is being treated by wound care. Unfortunately his has progressed to needing to live in an assisted living facility. Additionally his daughter now does require kidney transplant. Caleb has a lot going on that he is dealing with given that he does live alone home. He would like to talk about treatment options related to his left shoulder see if he gets some relief. PRIOR AR 8-19-25Paul is doing well. The injection helped his [...] the hospital that his home. PRIOR AR [id number]-year-old eszah-liaa-gnulnsdr man with left shoulder pain for years. 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 Edwardo Salazar MD [address] [place] [address], [address], [place] [facility] 09/06/2025 09:35:38
--- OUTSIDE RECORDS SUMMARY | 2025-10-04 08:07 | XMS_ITS ---
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, limited to breakdown of skin 09/12/2025 Non-pressure chronic ulcer o f left upper arm limited to breakdown of skin 09/12/2025 Non-pressure chronic ulcer o f skin of other sites limited to breakdown of skin 09/12/2025 Skin tear of left lower leg without complication 08/29/2025 Skin tear of left upper arm without complication 08/29/2025 Skin tear of left elbow without complication 07/2025 Open wound of left shoulder 08/29/2025 Blister of lower leg, right, initial encounter [...] loss 12/24/2017 Renal cyst 03/24/2012 Overview (07/14/2024): sono 01/28 f/up in 1 year advised Current Treatment and Therapy Plans No current plan information found. Past Treatment and Therapy Plans No past plan information found. Lifetime Dose Tracking * Chemical Lifetime Dose Automatic Entry Manual Entr y CTDIvol 25.52 mGy 25.52 mGy 0 mGy
--- OUTSIDE RECORDS SUMMARY | 2025-10-04 08:07 | XMS_ITS ---
Care Plan Created on: October 04, 2025 Caleb Martínez : 1945 Sex: Male Author Organization [facility] Address [address] [place] [address] Phone Care Team Providers Care Store Protection Specialist Name Role Phone Adalberto Zepeda Primary Care Provider [phone] Active Problems Problem Noted Date Diagnosed Date [...] sono 01/28 f/up in 1 year advised Additional Health Concerns Active Problems Noted Date Diagnosed Date Impaired Tissue 09/02/2024 Education needed on impact of smoking on wound 1 11/02/2023 Education needed related to ulceration/compromised skin integrity. 09/02/2024 Impaired Tissue 08/29/2025 Education needed on impact of smoking on wound 1 10/29/2024 Education needed related to ulceration/compromised skin integrity. 08/29/2025 Goals Goal Patient Goal Type Associated Problems [...] impact of smoking on wound No Kusum Messian RN Reduce tobacco use (cigarettes, smokeless, etc) [...] week 8 Care Plan Impaired Tissue No Lg Zamudioey E, charge weigher volume breakdown reduced by X% by week 12 Care Plan Impaired Tissue Esha Velarde RN Quit using tobacco (cigarettes, smokeless, etc) Care Plan Education needed on impact of smoking on wound Esha Velarde RN Reduce tobacco use (cigarettes, smokeless, etc) Care Plan Education needed on impact of smoking on wound Esha Velarde RN Decrease Wound Volume by X% by date (in notes) Care Plan Education needed on impact of smoking on wound Esha Velarde RN Patient and Caregiver Understand Wound Care Education Care Plan Education needed related to ulceration/compr omised skin integrity. Esha Velarde RN Interventions Care Plan Interventions Intervention Entry Date Outcome Parachute Rigger Monthly Review 09/07/2025 Note:Follow [facility] Provide caregiver with wound care procedure information 08/29/2025 Educate caregiver on proper wound care procedures 08/29/2025 Give provider list of wound care supplies 08/29/2025 Refill wound care supplies 08/29/2025 Send Wound Care Supplies 08/29/2025 Give provider list of wound care supplies 08/29/2025 Refill wound care supplies 08/29/2025 Send Wound Care Supplies 08/29/2025 Provide caregiver with wound care procedure information 08/29/2025 Educate caregiver on proper wound care procedures 08/29/2025 Document patient eligibility for HBO 08/29/2025 Assess patient for HBO treatment 08/29/2025 Record wound depth 08/29/2025 Record total wound area 08/29/2025 Measure wound progress 08/29/2025 Create an action plan identifying patient strengths and supports 08/29/2025 Establish quit date with patient 08/29/2025 Discuss prior cessation attempts 08/29/2025 Discuss preferred method of cessation and plan 08/29/2025 Discuss barriers to smoking cessation 08/29/2025 Discuss smoking status with patient 08/29/2025 Create an action plan identifying patient strengths and supports 08/29/2025 Establish quit date with patient 08/29/2025 Discuss prior cessation attempts 08/29/2025 Discuss preferred method of cessation and plan 08/29/2025 Discuss barriers to smoking cessation 08/29/2025 Discuss smoking status with patient 08/29/2025 Provide caregiver with wound care procedure information 08/29/2025 Educate caregiver on proper wound care procedures 08/29/2025 Document patient eligibility for HBO 08/29/2025 Assess patient for HBO treatment 08/29/2025 Record wound depth 08/29/2025 Record total wound area 08/29/2025 Measure wound progress 08/29/2025 Provide caregiver with wound care procedure information 08/29/2025 Educate caregiver on proper wound care procedures 08/29/2025 Document patient eligibility for HBO 08/29/2025 Assess patient for HBO treatment 08/29/2025 Record wound depth 08/29/2025 Record total wound area 08/29/2025 Measure wound progress 08/29/2025 Provide caregiver with wound care procedure information 08/29/2025 Educate caregiver on proper wound care procedures 08/29/2025 Document patient eligibility for HBO 08/29/2025 Assess patient for HBO treatment 08/29/2025 Record wound depth 08/29/2025 Record total wound area 08/29/2025 Measure wound progress 08/29/2025 Provide caregiver with wound care procedure information 08/29/2025 Educate caregiver on proper wound care procedures 08/29/2025 Give provider list of wound care supplies 08/29/2025 Refill wound care supplies 08/29/2025 Give provider list of wound care supplies 08/29/2025 Refill wound care supplies 08/29/2025 Provide caregiver with wound care procedure information 08/29/2025 Educate caregiver on proper wound care procedures 08/29/2025 Record wound depth 08/29/2025 Record total wound area 08/29/2025 Measure wound progress 08/29/2025 Patient Centric Care Plan 05/27/2025 Provide caregiver with wound care procedure information 09/02/2024 Educate caregiver on proper wound care procedures 09/02/2024 Give provider list of wound care supplies 09/02/2024 Refill wound care supplies 09/02/2024 Send Wound Care Supplies 09/02/2024 Give provider list of wound care supplies 09/02/2024 Refill wound care supplies 09/02/2024 Send Wound Care Supplies 09/02/2024 Provide caregiver with wound care procedure information 09/02/2024 Educate caregiver on proper wound care procedures 09/02/2024 Document patient eligibility for HBO 09/02/2024 Assess patient for HBO treatment 09/02/2024 Record wound depth 09/02/2024 Record total wound area 09/02/2024 Measure wound progress 09/02/2024 Create an action plan identifying patient strengths and supports 09/02/2024 Establish quit date with patient 09/02/2024 Discuss prior cessation attempts 09/02/2024 Discuss preferred method of cessation and plan 09/02/2024 Discuss barriers to smoking cessation 09/02/2024 Discuss smoking status with patient 09/02/2024 Create an action plan identifying patient strengths and supports 09/02/2024 Establish quit date with patient 09/02/2024 Discuss prior cessation attempts 09/02/2024 Discuss preferred method of cessation and plan 09/02/2024 Discuss barriers to smoking cessation 09/02/2024 Discuss smoking status with patient 09/02/2024 Provide caregiver with wound care procedure information 09/02/2024 Educate caregiver on proper wound care procedures 09/02/2024 Document patient eligibility for HBO 09/02/2024 Assess patient for HBO treatment 09/02/2024 Record wound depth 09/02/2024 Record total wound area 09/02/2024 Measure wound progress 09/02/2024 Provide caregiver with wound care procedure information 09/02/2024 Educate caregiver on proper wound care procedures 09/02/2024 Document patient eligibility for HBO 09/02/2024 Assess patient for HBO treatment 09/02/2024 Record wound depth 09/02/2024 Record total wound area 09/02/2024 Measure wound progress 09/02/2024 Provide caregiver with wound care procedure information 09/02/2024 Educate caregiver on proper wound care procedures 09/02/2024 Document patient eligibility for HBO 09/02/2024 Assess patient for HBO treatment 09/02/2024 Record wound depth 09/02/2024 Record total wound area 09/02/2024 Measure wound progress 09/02/2024 Related Goals and Interventions Goal Associated Intervent ions Wound volume breakdown reduc ed by X% by week 4 Provide caregiver with wound care proced ure information; Educate caregiver on proper wound care procedures; Document patient eligibility for HBO; Assess patient for HBO treatment; Record wound depth; Record total wound area; Measure wound progress Wound volume breakdown reduc ed by X% by week 8 Provide caregiver with wound care proced ure information; Educate caregiver on proper wound care procedures; Document patient eligibility for HBO; Assess patient for HBO treatment; Record wound depth; Record total wound area; Measure wound progress Wound volume breakdown reduc ed by X% by week 12 Provide caregiver with wound care proced ure information; Educate caregiver on proper wound care procedures; Document patient eligibility for HBO; Assess patient for HBO treatment; Record wound depth; Record total wound area; Measure wound progress Quit using tobacco (cigarett es, smokeless, etc) Create an action plan identifying patien t strengths and supports; Establish quit date with patient; Discuss prior cessation attempts; Discuss preferred method of cessation and plan; Discuss barriers to smoking cessation; Discuss smoking status with patient Reduce tobacco use (cigarett es, smokeless, etc) Create an action plan identifying patien t strengths and supports; Establish quit date with patient; Discuss prior cessation attempts; Discuss preferred method of cessation and plan; Discuss barriers to smoking cessation; Discuss smoking status with patient Decrease Wound Volume by X% by date (in notes) Give provider list of wound care supplie s; Refill wound care supplies; Send Wound Care Supplies; Provide caregiver with wound care procedure information; Educate caregiver on proper wound care procedures; Document patient eligibility for HBO; Assess patient for HBO treatment; Record wound depth; Record total wound area; Measure wound progress Patient and Caregiver Unders tand Wound Care Education Provide caregiver with wound care proced ure information; Educate caregiver on proper wound care procedures; Give provider list of wound care supplies; Refill wound care supplies; Send Wound Care Supplies Decrease Wound Volume by X% by date (in notes) Give provider list of wound care supplie s; Refill wound care supplies; Provide caregiver with wound care procedure information; Educate caregiver on proper wound care procedures; Record wound depth; Record total wound area; Measure wound progress Patient and Caregiver Unders tand Wound Care Education Provide caregiver with wound care proced ure information; Educate caregiver on proper wound care procedures; Give provider list of wound care supplies; Refill wound care supplies Wound volume breakdown reduc ed by X% by week 4 Provide caregiver with wound care proced ure information; Educate caregiver on proper wound care procedures; Document patient eligibility for HBO; Assess patient for HBO treatment; Record wound depth; Record total wound area; Measure wound progress Wound volume breakdown reduc ed by X% by week 8 Provide caregiver with wound care proced ure information; Educate caregiver on proper wound care procedures; Document patient eligibility for HBO; Assess patient for HBO treatment; Record wound depth; Record total wound area; Measure wound progress Wound volume breakdown reduc ed by X% by week 12 Provide caregiver with wound care proced ure information; Educate caregiver on proper wound care procedures; Document patient eligibility for HBO; Assess patient for HBO treatment; Record wound depth; Record total wound area; Measure wound progress Quit using tobacco (cigarett es, smokeless, etc) Create an action plan identifying patien t strengths and supports; Establish quit date with patient; Discuss prior cessation attempts; Discuss preferred method of cessation and plan; Discuss barriers to smoking cessation; Discuss smoking status with patient Reduce tobacco use (cigarett es, smokeless, etc) Create an action plan identifying patien t strengths and supports; Establish quit date with patient; Discuss prior cessation attempts; Discuss preferred method of cessation and plan; Discuss barriers to smoking cessation; Discuss smoking status with patient Decrease Wound Volume by X% by date (in notes) Give provider list of wound care supplie s; Refill wound care supplies; Send Wound Care Supplies; Provide caregiver with wound care procedure information; Educate caregiver on proper wound care procedures; Document patient eligibility for HBO; Assess patient for HBO treatment; Record wound depth; Record total wound area; Measure wound progress Patient and Caregiver Unders tand Wound Care Education Provide caregiver with wound care proced ure information; Educate caregiver on proper wound care procedures; Give provider list of wound care supplies; Refill wound care supplies; Send Wound Care Supplies
--- OUTSIDE RECORDS SUMMARY | 2025-10-04 08:07 | XMS_ITS | Clinical Summary ---
Author Organization [facility] Prior to 03/19/25 Address [address] [place] [address] Care Team Providers Care Crimper Operator Name Role Phone Adalberto Zepeda PA-C Primary [...] age to complete this topic Care Teams Crimper Operator Relationship Specialty Start Date End Date Adalberto Zepeda, PAAndreeaC PCP - General Medical Services 08/15/21
--- OUTSIDE RECORDS SUMMARY | 2025-10-04 08:07 | XMS_ITS | Patient Health Record ---
Author Organization [facility] Address [address] [facility] [address] [place] [phone] Care Team Providers Care Technology Lab Teacher Name Role Phone Raman WARE, Vandana Primary Care Provider Unavail able Eugene yIer Jr Unavailable [phone] Allergies Allergen (clinical drug ingredient) Drug/Non Drug Allergy documented on EMR Reaction Allergy Type Onset Date Status acetaminophen / oxycodone Percocet Unknown Drug Allergy Active Romycin Unknown Drug Allergy Active Oxycodone-Acetaminop he n ER Unknown Drug Allergy Active amoxicillin Amoxicillin Unknown Drug Allergy Act charly polymyxin B Polymyxin B Unknown Drug Allergy Act charly sertraline Sertraline Unknown Drug Allergy Activ e erythromycin Erythromycin Unknown Drug Allergy A ctive minocycline Minocycline Unknown Drug Allergy Act charly Results Component Value Reference Range Notes Pathology Reviewed date:01/22/2025 03:35:39 PM Interpretation: Performing Lab:[facility], [address] [place] [id number] Notes/Report: Reason For Referral Referring Provider First Name Vandana Referring Provider Last Name Raman Referred Organization [facility] Referred Provider Eugene Iyer Jr Referred Address [address] [place] [phone],[place] Referred Provider Specialty Gastroentero logy Referral Priority Routine Referring Provider First Name Vandana Referring Provider Last Name Raman Referred Organization [facility] Referred Provider Eugene Iyer Jr Referred Address [address] [place] [phone],[place] Referred Provider Specialty Gastroentero logy General Notes Dorcas Diallo 2024 08:47:06 AM >[facility] Priority Routine Medications Medication SIG (Take, Route, Frequency, Duration) Notes Start Date End Date Status Doxycycline Hyclate 100 MG Capsule Oral; Duration: 30 Active predniSONE 10 MG Tablet 1 tablet Orally Once a day; Duration: 30 day(s) as needed for inflamation Active Omeprazole 20 MG Capsule Delayed Release Oral; Duration: 90 Active Mupirocin 2 % Ointment 1 application Externally Twice a day; Duration: 5 day(s) Active Leucovorin Calcium 10 MG Tablet TAKE 2 TABLETS BY MOUTH ONCE A WEEK THE DAY AFTER METHOTREXATE Oral; Duration: 84 Active rOPINIRole HCl 2 MG Tablet 1 tablet 1 to 3 hours before bedtime Orally Once a day; Duration: 30 day(s) Active Tamsulosin HCl 0.4 MG Capsule Oral; Duration: 90 Active amLODIPine Besylate 5 MG Tablet TAKE 1 TABLET BY MOUTH 1 TIME EACH DAY. Oral; Duration: 14 Active QUEtiapine Fumarate ER 150 MG Tablet Extended Release 24 Hour 1 tablet in the evening Orally Once a day; Duration: 30 day(s) 04/13/2025 Active Atorvastatin Calcium 40 MG Tablet TAKE 1 TABLET BY MOUTH EVERY DAY Oral; Duration: 20 Active traZODone HCl 100 MG Tablet 1 tablet at bedtime Orally Once a day; Duration: 30 day(s) Active Aspirin 81 81 MG Tablet Delayed Release 1 tablet Orally Once a day; Duration: 30 day(s) 12/01/2024 Active PARoxetine HCl 30 MG Tablet 1 tablet in the morning Orally Once a day; Duration: 30 day(s) Active Entacapone 200 MG Tablet 1 tablet Orally Twice a day; Duration: 30 day(s) Active Lisinopril 40 MG Tablet Oral; Duration: 90 Active Carbidopa 25 MG Tablet 1 tablet Orally Three times a day; Duration: 30 day(s) Active Methotrexate Sodium 2.5 MG Tablet Oral; Duration: 84 Active buPROPion HCl ER (XL) 300 MG Tablet Extended Release 24 Hour 1 tablet in the morning Orally Once a day; Duration: 30 day(s) Active Omeprazole 40 MG Capsule Delayed Release 1 capsule 1/2 to 1 hour before morning meal Orally Once a day; Duration: 30 days 01/22/2025 Active Alendronate Sodium 70 MG Tablet Oral; Duration: 84 Active Enbrel SureClick 50 MG/ML Solution Auto-injector Subcutaneous; Duration: 28 Days Active Immunizations Vaccine Route Administration Date Status Comme nts Influenza Unknown 12/09/2023 Administered Social History Tobacco Use: Social History Observation Description Date Details (start date - stop date) Never Smoker NA - NA Social History Drugs/Alcohol: Social Info Question Answer Notes Alcohol Screen Did you have a drink containing alcohol in the past year? No Points 0 Interpretation Negative Tobacco Use: Social Info Question Answer Notes Tobacco Use/Smoking Patient is a nonsmoker Additional Details Category Social Info Options Details Miscellaneous: Marital status: Occupation: retired Problems Problem Type SNOMED Code ICD Code Onset Dates Problem Status W/U Status Risk Notes Problem Long-term current use of antiplatelet drug (146944707200256) Long-term use of aspirin therapy (Z79.82) Active confirmed Problem Dysphagia (76929154) Dysphagia, unspecified type (R13.10) Active confirmed Problem Gastroesophageal reflux disease (377969568) Gastroesophageal reflux disease, unspecified whether esophagitis present (K21.9) Active confirmed Vital Signs Temperature 98.0 degrees Fahrenheit 04/13/2025 Blood pressure diastolic 01 mm Hg 04/13/2025 Height 70 in 04/13/2025 Blood pressure systolic 001 mm Hg 04/13/2025 Weight 166.4 lbs 04/13/2025 BMI 23.87 kg/m2 04/13/2025 Encounters Encounter Location Date Provider Diagnosis [facility] Outpatient [address] [place] [id number] 01/14/2025 Eugene Iyer Jr Dysphagia R13.10 [facility] [address] [place] [phone] 12/01/2024 Eugene Iyer Jr Dysphagia, unspecified type R13.10 ; Long-term use of aspirin therapy Z79.82 and Gastroesophageal reflux disease, unspecified whether esophagitis present K21.9 [facility] [address] [place] [phone] 04/13/2025 Eugene Iyer Jr Gastroesophageal reflux disease, unspecified whether esophagitis present K21.9 and Dysphagia, unspecified type R13.10 [facility] [address] [place] [phone] 01/14/2025 Eugene Iyer Jr [facility] [address] [place] [phone] 01/22/2025 Eugene Iyer Jr [facility] [address] [place] [address] 04/20/2025 Eugene Iyer Jr Assessments Encounter Date [...] MBS this will be arranged through the [facility] where his prior testing has been done. Some of his dysphagia may be related to his underlying Parkinson's disease and we discussed this today. [facility] records will be obtained and reviewed. Follow-up [...] MBS this will be arranged through the [facility] where his prior testing has been done. Some of his dysphagia may be related to his underlying Parkinson's disease and we discussed this today. [facility] records will be obtained and reviewed. Follow-up will be pending these results. Today's visit was 30 minutes. Plan Of Treatment Future Test Test Name Order Date UPPER GI ENDOSCOPY 12/01/2024 Next Appt Details Provider Name:Eugene domingo , 04/17/2026 09:40:00 AM, [address] [place] [address], [address], [place], [address], Insurance Providers Payer Name Payer Address Payer Phone Subscriber Number Group Number Insured Name Patient Relationship to Insured Coverage Start Date Coverage End Date [facility] [employer] [address] [place] [address] [id number] KOFI STANLEY Self - patient is the insured Medical (General) History Medical History History ICD Code hypertension Cardiomyopathy/bradycardia/ASCVD PTSD/anxiety/depression Hypertension Hyperlipidemia Parkinson's disease Hyperlipidemia Rheumatoid/osteoarthritis Chronic kidney disease EGD 01/14/2025 for dysphagia, erosive esophagitis with mild narrowing of the EG junction balloon dilated to 20 mm 5 cm hiatal hernia biopsies negative for Cannon's esophagus and H. pylori Surgical History Surgery Date(Month/Year) Tonsillectomy colonoscopy 2019, [place] [facility] for nephrolithiasis
--- OUTSIDE RECORDS SUMMARY | 2025-10-04 08:08 | XMS_ITS ---
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
--- OUTSIDE RECORDS SUMMARY | 2025-10-04 08:08 | XMS_ITS | Encounter Summary ---
Author Organization [facility] Address [address] [place] [address] Care Team Providers Care Data Software Engineer Name Role Phone Adalberto Zepeda Primary Care Provider [phone] Reason for Referral * Imaging (Routine) - Closed Specialty Diagnoses / Procedures Referred By Contac t Referred To Contact Radiology Diagnoses Liver lesion, right lobe Procedures MR Abdomen wo and w Contrast Radha Carroll PA [address] [place] [address] Phone: tel: fax: [address] Phone: tel: Referral ID Status Reason Start Date Expiration Date Visits Re quested Visits Authorized [id number] Closed 08/26/2025 08/26/2026 1 1 * Imaging (Routine) - Pending Review Specialty Diagnoses / Procedures Referred By Contac t Referred To Contact Radiology Diagnoses Right lower lobe pulmonary nodule Procedures CT Chest wo Contrast Radha Carroll PA [address] [place] [address] Phone: tel: fax: [address] Phone: tel: Referral ID Status Reason Start Date Expiration Date V isits Requested Visits Authorized [id number] Pending Review 08/26/2025 08/26/2026 1 1 Encounter Details Date Type Department Care Team (Late st Contact Info) Description 08/24/2025 Results Follow-Up Adult [address] [phone] Adalberto Zepeda PA [address] [place] [phone] Social History Tobacco Use Types Packs/Day Years [...] on file documented as of this encounter Plan of Treatment Upcoming Encounters Date Type Department Care Team (Late st Contact Info) Description 10/17/2025 9:00 AM EST Clinical Support [facility] [address] [place] [phone] 11/30/2025 9:00 AM EST Office Visit Adult Medicine [address] [phone] Adalberto Zepeda PA [address] [place] [phone] 06/01/2026 9:15 AM EDT Office Visit [facility] [address] [place] [phone] Katja Lainez MD [address] [place] [phone] Pending Results Name Type Priority Associated Diagnoses Date /Time MR Abdomen wo and w Contrast Imaging Routine Liver lesion, right lobe 09/21/2025 10:07 AM EST Scheduled Orders Name Type Priority Associated Diagnoses Orde r Schedule CT Chest wo Contrast Imaging Routine Right lower lobe pulmonary nodule Expected: 08/26/2026, Expires: 08/26/2026 MR Abdomen wo and w Contrast Imaging Routine Liver lesion, right lobe Expected: 08/26/2025, Expires: 08/26/2026 documented as of this encounter Goals Goal [...] as of this encounter Visit Diagnoses Diagnosis Liver lesion, right lobe- Primary Other specified disorders of liver Right lower lobe pulmonary nodule documented in this encounter Additional Health Concerns [...] documented as of this encounter Care Teams Data Software Engineer Relationship Specialty Start Date End Date Adalberto Zepeda PA [address] [place] [phone] PCP - General Internal Medicine 08/18/24 documented as of this encounter
--- OUTSIDE RECORDS SUMMARY | 2025-10-04 08:08 | XMS_ITS | Clinical Summary ---
Author Organization [facility] Address [address] [place] [address] Phone Care Team Providers Care Cork Molder Name Role Phone Adalberto Zepeda Primary Care Provider [phone] Allergies Active Allergy Reactions Criticality Noted Date [...] mouth 2 (two) times a day. Active carbidopa-levodopa (SINEMET) 25-100 mg per tablet Take [...] mg total) by mouth. 05/25/20 19 Active leucovorin 10 mg tablet TAKE 1 TABLET BY MOUTH EVERY WEEK. TAKE THE DAY AFTER YOU TAKE METHOTREXATE 06/03/20 24 Active amLODIPine (NORVASC) 5 mg tablet Take 1 tablet (5 mg total) by mouth 1 (one) time each day. 90 tablet 3 12/28/19 25 Active atorvastatin (LIPITOR) 20 mg tablet TAKE 1 TABLET DAILY 90 tablet 3 03/02/20 25 Active lisinopril (PRINIVIL,ZESTRIL) 40 mg tablet TAKE 1 TABLET DAILY 90 tablet 3 03/02/20 25 Active baclofen (LIORESAL) 10 mg tablet Take 1 tablet (10 mg total) by mouth at bedtime. From neuro Active omeprazole (PriLOSEC) [address] capsule TAKE 1 CAPSULE TWICE DAILY 180 capsule 1 08/08/20 25 Active mupirocin (BACTROBAN) 2 % ointmentIndication s:Skin tear of left lower leg without complication, initial encounter,Skin tear of left elbow without complication, initial encounter,Skin tear of left upper arm without complication, initial encounter,Open wound of left shoulder, initial encounter Apply topically 1 (one) time each day. Apply to wounds daily 30 g 1 08/29/20 25 025 traMADoL (ULTRAM) 50 mg tabletIndications: Fall, subsequent encounter,Benign prostatic hyperplasia without lower urinary tract symptoms,Essential tremor,Parkinson's disease without dyskinesia, unspecified whether manifestations fluctuate (CMS/[facility] V24, CMS/[facility] V28),Essential (primary) hypertension,Anxie ty,Multiple wounds,Acute pain of left shoulder Take 1 tablet (50 mg total) by mouth every 6 (six) hours if needed for moderate pain for up to 7 days. Max Daily Amount: 200 mg 28 tablet 08/29/20 25 025 Active Problems Problem Noted Date Diagnosed Date [...] Encounters Date Type Department Care Team Description 10/03/2025 9:00 AM EST Office Visit [facility] [address] [place] [phone] Imelda Delatorre MD Skin tear of left elbow without complication, [...] of right forearm with fat layer exposed 09/28/2025 Telephone [facility] [address] [place] [phone] Kusum Messina RN 09/21/2025 8:58 AM EST - 09/21/2025 11:59 PM EST Hospital Encounter Radiology Department - [address] [phone] Liver lesion, right lobe Discharge Disposition: Home or Self Care 09/19/2025 1:45 PM EST Office Visit [facility] [address] [place] [phone] Imelda Delatorre MD Skin tear of left lower leg without complication, subsequent encounter (Primary Dx); Non-pressure chronic ulcer of other part of left lower leg limited to breakdown of skin (CMS/HCC V24, CMS/HCC V28); Skin tear of left upper arm without complication, subsequent encounter; 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; Skin tear of left elbow without complication, subsequent encounter; Non-pressure chronic ulcer of skin of other sites limited to breakdown of skin (CMS/HCC V24, CMS/HCC V28); Skin tear of left forearm without complication, subsequent encounter; Non-pressure chronic ulcer of left forearm, limited to breakdown of skin 09/12/2025 8:45 AM EST Office Visit [facility] [address] [place] [phone] Imelda Delatorre MD Skin tear of left lower leg without complication, subsequent encounter (Primary Dx); Non-pressure chronic ulcer of other part of left lower leg limited to breakdown of skin ([facility] V24, [facility] V28); Skin tear of left upper arm without complication, subsequent encounter; 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; Skin tear of left elbow without complication, subsequent encounter; Non-pressure chronic ulcer of skin of other sites limited to breakdown of skin ([facility] V24, [facility] V28); Skin tear of left forearm without complication, initial encounter; Non-pressure chronic ulcer of left forearm, limited to breakdown of skin 09/12/2025 Telephone Adult Medicine [address] [phone] LaviniaPerry calvillo, JACQUI 09/08/2025 Telephone Adult Medicine [address] [phone] LaviniaPerry calvillo, SETTER MACHINE 08/29/2025 10:00 AM EST Office Visit Adult Medicine [address] [phone] Adalberto Zepeda, [place] Fall, subsequent encounter (Primary Dx); Benign prostatic hyperplasia without lower urinary tract symptoms; Essential tremor; Parkinson's disease without dyskinesia, unspecified whether manifestations fluctuate ([facility] V24, [facility] V28); Essential (primary) hypertension; Anxiety; Multiple wounds; Acute pain of left shoulder 08/29/2025 8:00 AM EST Consult [facility] [address] [place] [phone] Imelda Delatorre MD Skin tear of left lower leg without complication, initial encounter (Primary Dx); Skin tear of left elbow without complication, initial encounter; Skin tear of left upper arm without complication, initial encounter; Open wound of left shoulder, initial encounter 08/26/2025 2:01 PM EST - 08/26/2025 11:59 PM EST Hospital Encounter Radiology Department - [address] [phone] Scrotal abscess Discharge Disposition: Home or Self Care 08/24/2025 Results Follow-Up Adult Medicine [address] [phone] Adalberto Zepeda PA 08/23/2025 9:41 AM EST - 08/23/2025 11:59 PM EST Hospital Encounter CT Scan - [address] [phone] Night sweats Discharge Disposition: Home or Self Care 08/23/2025 9:41 AM EST - 08/23/2025 11:59 PM EST Hospital Encounter CT Scan - [address] [phone] Night sweats Discharge Disposition: Home or Self Care 08/23/2025 Results Follow-Up [facility] [address] [phone] Radha Carroll PA 08/22/2025 2:30 PM EST Office Visit [address] [phone] Radha Carroll PA Encounter for staple removal (Primary Dx); Laceration of scalp, subsequent encounter; Skin tear of left elbow without complication, subsequent encounter; Skin tear of left lower leg without complication, subsequent encounter 08/22/2025 1:25 PM EST Lab Draw Station [address] Night sweats 08/18/2025 Telephone Adult Medicine [address] [phone] Adalberto Zepeda PA 08/11/2025 12:45 PM EDT Office Visit Adult [address] [phone] Radha Carroll PA Night sweats (Primary Dx); Extramammary Paget disease; Scrotal abscess 07/26/2025 8:00 AM EDT Consult [facility] [address] [place] [phone] Adalberto Avalos PA Blister of lower leg, right, initial encounter (Primary Dx); Skin ulcer of right lower leg, limited to breakdown of skin ([facility] V24, [facility] V28) 07/05/2025 4:40 PM EDT - 07/05/2025 11:59 PM EDT Hospital Encounter [address] [phone] Night sweats Discharge Disposition: Home or Self Care 07/05/2025 4:00 PM EDT Office Visit Adult Medicine [address] [phone] Donna Benjamin PA Essential (primary) hypertension (Primary Dx); Parkinson's disease without dyskinesia, unspecified whether manifestations fluctuate ([facility] V24, CMS/[facility] V28); Extramammary Paget disease; Night sweats; Skin ulcer of right lower leg, limited to breakdown of skin (CMS/HCC V24, CMS/HCC V28); PTSD (post-traumatic stress disorder); Anxiety; Need for prophylactic vaccination and inoculation against influenza from Last 3 Months Immunizations Immunization Administration Dates Next Due Influenza trivalent, 0.5mL ( Fluad) 65yo and older 07/05/2025 [employer] SARS-CoV-2 COVID-19, mRNA, LNP-S, preservative free 07/01/2022,12/10/2020,11/19/2020 [...] negative examination. 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 ([facility] V24, [facility] V28) 11/27/2018 DX:Seronegative rheumatoid a rthritis of multiple sites (HCC) Parkinson's disease ([facility] V24, [facility] V28) 09/27/2019 DX:Parkinson's disease (HCC) Osteoarthritis of both hands 06/09/2020 DX: Osteoarthritis of both hands PTSD (post-traumatic stress disorder) Major depressive disorder Aortic stenosis Extramammary Paget disease Cataract GERD (gastroesophageal reflux disease) Hypertension Chronic kidney disease Neuromuscular disorder ([facility] V24, [facility] V28) Osteoporosis Family History Medical History Relation Name Comments [...] care for your loved ones. For example, childhood development teacher or elderly care for an older [...] on file Sexual Orientation Not on file Last Filed Vital Signs Vital Sign Reading Time Taken Comments Blood Pressure 134/68 10/03/2025 8:49 AM EST Pulse 70 10/03/2025 8:49 AM EST Temperature 35.9 C (96.6 F) 10/03/2025 8:49 AM EST Respiratory Rate 16 10/03/2025 8:49 AM EST Oxygen Saturation 100% 10/03/2025 8:49 AM EST Inhaled Oxygen Concentration - - Weight 74.8 kg (165 lb) 08/29/2025 9:50 AM EST Height 172.7 cm (5' 8 ) 08/29/2025 9:50 AM EST Body Mass Index 25.09 08/29/2025 9:50 AM EST Plan of Treatment Upcoming Encounters Date Type Department Care Team (Late st Contact Info) Description 10/17/2025 9:00 AM EST Clinical Support [facility] [address] [place] [phone] 11/30/2025 9:00 AM EST Office Visit Adult Medicine [address] [phone] Adalberto Zepeda [address] [phone] 06/01/2026 9:15 AM EDT Office Visit [facility] [address] [place] [phone] Katja Lainez MD [address] [place] [phone] Health Maintenance Due Date Last Done Comments Drug Screen 1945 Naloxone Order 1944 Non-Opioid Controlled Substance Agreement 1944 Opioid Substance Agreement 1944 Pain Assessment 1945 Medicare Annual Wellness Visit 09/28/2022 COVID-19 Vaccine ( season) 2025 07/01/2022, 07/18/2021, 12/10/2020, Additional history exists Social Influencers of Health Screening 12/20/2025 12/20/2024 Hypertension/CHF/CAD Annual BMP Blood Test 08/22/2026 08/22/2025, 07/06/2025, 08/04/2024 Falls Risk Assessment 09/12/2026 09/12/2025 , 08/29/2025, 08/22/2025, Additional history exists Cholesterol Screening (Lipid Panel) 07/06/2030 07/06/2025, 08/04/2024 DTaP,Tdap,and Td Vaccines (7 - Td or Tdap) 08/06/2033 08/06/2023, 04/02/2013, 04/02/2013, Additional history exists Zoster Vaccines Completed 06/26/2023, 02/17, 03/30/2013 Pneumococcal Vaccine: 50+ Years Completed 08/10/2024, 07/20/2016, 02/26/2016, Additional history exists Depression Screening Completed 08/22/2025 Influenza Vaccine Completed 09/02/2025, , 08/20/2024, Additional history exists HIB Vaccines Aged Out [...] Care Plan Impaired Tissue No 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 No Esha Zamudio RN Procedures Procedure Name Priority Date/Time Associated Diagnosis Comments DEBRIDEMENT Routine 08/29/2025 8:00 AM EST Skin tear of left upper arm without complication, initial encounter Open wound of left shoulder, initial encounter DEBRIDEMENT Routine 08/29/2025 8:00 AM EST Skin tear of left elbow without complication, initial encounter DEBRIDEMENT Routine 08/29/2025 8:00 AM EST Skin tear of left lower leg without complication, initial encounter US SCROTUM AND CONTENTS Routine 08/26/2025 2:23 PM EST Scrotal abscess CT ABDOMEN PELVIS W CONTRAST Routine 08/23/2025 10:10 AM EST Night swe[address] CT CHEST W CONTRAST Routine 08/23/2025 1 0:03 AM EST Night sweats BASIC METABOLIC PANEL Routine 08/22/2025 1:34 PM EST Night sweats EXTERNAL XRAY REPORT 08/16/2025 EXTERNAL XRAY REPORT 08/16/[address] REPORT 08/16/[address] REPORT 08/16/[address] REPORT 08/16/[address] REPORT 08/16/2025 TESTOSTERONE FREE, BIOAVAILABLE AND TOTAL Routine 07/06/2025 [...] Routine 07/05/2025 4:48 PM EDT Night sweats from Last 3 Months Results * Debridement Skin Tear Left;Posterior Shoulder (08/29/2025 8:00 AM EST) Imelda Viramontes MD - 08/29/2025 8:00 AM EST Imelda Delatorre MD 08/29/2025 10:03 AM Debridement Skin Tear Left;Posterior Shoulder Performed by: Imelda Delatorre MD Authorized by: Imelda Delatorre MD Associated wounds: Wound Skin Tear 08/29/25 Shoulder Left;Posterior Consent: Consent obtained: Verbal Consent given by: Patient Risks discussed: Yes Time out: Immediately prior to the procedure a time out was called Time out performed at: 08/29/2025 9:02 AM Debridement Details: Performed by: Physician Type: selective Pain control: Lidocaine 5% Pain control administration: topical anesthesia Severity of Tissue Pre Debridement: Limited to breakdown of skin Severity of Tissue Post Debridement: Limited to breakdown of skin Time taken: 08/29/2025 8:34 AM Length (cm): 0.8 Width (cm): 0.8 Depth (cm): 0.1 Area (cm^2): 0.64 Time taken: 08/29/2025 8:35 AM Length (cm): 0.8 Width (cm): 0.8 Depth (cm): 0.1 Percent Debrided (%): 100 Surface Area (cm^2): 0.64 Area Debrided (cm^2): 0.64 Volume (cm^3): 0.06 Devitalized tissue debrided: fibrin Devitalized tissue debrided comment: Devitalized skin Instrument: Other Other instrument: Scissors Amount of bleeding: small Hemostasis obtained with: Pressure Procedural pain: 0 Post-procedural pain: 0 Response to treatment: Procedure was tolerated well us Imelda Delatorre MD IN CLINIC/BEDSIDE ORDERAB LES Final Result * Debridement Skin Tear Left;Posterior Elbow (08/29/2025 8:00 AM EST) Narrative Imelda Delatorre MD - 08/29/2025 8:00 AM EST Imelda Delatorre MD 08/29/2025 10:03 AM Debridement Skin Tear Left;Posterior Elbow Performed by: Imelda Delatorre MD Authorized by: Imelda Delatorre MD Associated wounds: Wound Skin Tear 08/29/25 Elbow Left;Posterior Consent: Consent obtained: Verbal Consent given by: Patient Risks discussed: Yes Time out: Immediately prior to the procedure a time out was called Time out performed at: 08/29/2025 9:00 AM Debridement Details: Performed by: Physician Type: selective Pain control: Lidocaine 5% Pain control administration: topical anesthesia Severity of Tissue Pre Debridement: Fat layer exposed Severity of Tissue Post Debridement: Fat layer exposed Time taken: 08/29/2025 8:32 AM Length (cm): 3 Width (cm): 4.5 Depth (cm): 0.1 Area (cm^2): 13.5 Time taken: 08/29/2025 8:33 AM Length (cm): 3 Width (cm): 4.5 Depth (cm): 0.1 Percent Debrided (%): 25 Surface Area (cm^2): 13.5 Area Debrided (cm^2): 3.38 Volume (cm^3): 1.35 Devitalized tissue debrided: fibrin Devitalized tissue debrided comment: Devitalized skin Instrument: Other Other instrument: Scissors Amount of bleeding: small Hemostasis obtained with: Pressure Procedural pain: 0 Post-procedural pain: 0 Response to treatment: Procedure was tolerated well us Imelda Delatorre MD IN CLINIC/BEDSIDE ORDERAB LES Final Result * Debridement Skin Tear Left Pretibial (08/29/2025 8:00 AM EST) Imelda Viramontes MD - 08/29/2025 8:00 AM EST Imelda Delatorre MD 08/29/2025 10:03 AM Debridement Skin Tear Left Pretibial Performed by: Imelda Delatorre MD Authorized by: Imelda Delatorre MD Associated wounds: Wound Skin Tear 08/29/25 Pretibial Left Consent: Consent obtained: Verbal Consent given by: Patient Risks discussed: Yes Time out: Immediately prior to the procedure a time out was called Time out performed at: 08/29/2025 8:59 AM Debridement Details: Performed by: Physician Type: selective Pain control: Lidocaine 5% Pain control administration: topical anesthesia Severity of Tissue Pre Debridement: Fat layer exposed Severity of Tissue Post Debridement: Fat layer exposed Time taken: 08/29/2025 8:27 AM Length (cm): 3.5 Width (cm): 1.5 Depth (cm): 0.1 Area (cm^2): 5.25 Time taken: 08/29/2025 8:28 AM Length (cm): 3.5 Width (cm): 1.5 Depth (cm): 0.1 Percent Debrided (%): 100 Surface Area (cm^2): 5.25 Area Debrided (cm^2): 5.25 Volume (cm^3): 0.53 Devitalized tissue debrided: fibrin Devitalized tissue debrided comment: Devitalized skin Instrument: Other (scissors) Other instrument: Scissors Amount of bleeding: small Hemostasis obtained with: Pressure Procedural pain: 0 Post-procedural pain: 0 Response to treatment: Procedure was tolerated well us Imelda Delatorre MD IN CLINIC/BEDSIDE ORDERAB LES Final Result * US Scrotum and Contents (08/26/2025 2:23 PM EST) Anatomical Region Laterality Modality Body Ultrasound 08/26/2025 3:59 PM EST Narrative 08/26/2025 4:00 PM EST Scrotal ultrasound. History scrotal scrotal pain. No prior studies are available for comparison. Right testicle measures 3.9 x 2.2 x 3.8 cm. There is a tiny 3 mm cyst in the upper pole measuring 0.3 x 0.2 x 0.3 cm. No other focal abnormalities were identified. There is normal flow on color Doppler examination. Right epididymis is unremarkable. Left testicle was visualized measuring 3.7 x 2.3 x 3 cm. No focal lesions were identified. There is normal flow on color Doppler examination. Left epididymis is unremarkable. CONCLUSIONS: Tiny cyst in the right testicle. Otherwise unremarkable examination. -------- FINAL REPORT -------- Dictated By: Soheila Sal Dictated Date: 08/26/2025 15:59 ET Assigned Physician: Soheila Sal Reviewed and Electronically Signed By: Soheila Sal Signed Date: 08/26/2025 16:00 ET Workstation ID: [id number] Transcribed By: Self Edit Transcribed Date: 08/26/2025 15:59 ET Procedure Note Soheila Sal MD - 08/26/2025 Scrotal ultrasound. History scrotal scrotal pain. No prior studies are available for comparison. Right testicle measures 3.9 x 2.2 x 3.8 cm. There is a tiny 3 mm cyst inthe upper pole measuring 0.3 x 0.2 x 0.3 cm. No other focal abnormalitieswere identified. There is normal flow on color Doppler examination. Rightepididymis is unremarkable. Left testicle was visualized measuring 3.7 x 2.3 x 3 cm. No focal lesionswere identified. There is normal flow on color Doppler examination. Leftepididymis is unremarkable. CONCLUSIONS: Tiny cyst in the right testicle. Otherwise unremarkableexamination. -------- FINAL REPORT -------- Dictated By: Soheila Sal Dictated Date: 08/26/2025 15:59 ET Assigned Physician: Soheila Sal Reviewed and Electronically Signed By: Soheila Sal Signed Date: 08/26/2025 16:00 ET Workstation ID: [id number] Transcribed By: Self Edit Transcribed Date: 08/26/2025 15:59 ET us Radha Glen HOFFMAN IMMing US PROCEDURES Final Result * CT Abdomen Pelvis w Contrast (08/23/2025 10:10 AM EST) Anatomical Region Laterality Modality Body Computed Tomogra phy 08/23/2025 8:20 PM EST Impressions 08/24/2025 9:07 AM EST No evidence of an acute process in the chest, abdomen, or pelvis. No lymphadenopathy. 1.4 cm subtle hypodense lesion in the right hepatic lobe does not have density of a cyst. Recommend liver MRI for further characterization. Cholelithiasis. Left nephrolithiasis. Colonic diverticulosis. Small right lower lobe pulmonary nodule. Pulmonary nodule recommendation: No follow-up needed if patient is low-risk (and has no known or suspected primary neoplasm). Non-contrast chest CT can be considered in 12 months if patient is high-risk (Per Fleischner Society guidelines). -------- FINAL REPORT -------- Dictated By: Theodora Ferguson Dictated Date: 08/23/2025 20:20 ET Assigned Physician: Theodora Ferguson Reviewed and Electronically Signed By: Theodora Ferguson Signed Date: 08/24/2025 09:07 ET Workstation ID: [id number] Transcribed By: Self Edit Transcribed Date: 08/23/2025 22:41 ET Narrative 08/24/2025 9:07 AM EST EXAM: CT chest, abdomen, and pelvis HISTORY: Drenching night sweats for 2 months. COMPARISON: CT abdomen and pelvis 01/16/2012 TECHNIQUE: CT of the chest, abdomen, and pelvis with oral and intravenous contrast. 100 cc of Isovue-370 administered intravenously. Coronal and sagittal reformatted images were generated. The radiation dose total CTDIvol: 12.76 mGy. FINDINGS: CT CHEST: Lungs/pleura: 3 mm nodule in the superior segment right lower lobe on image 124. 2 mm nodule in the right lower lobe on image 220 is stable compared with the prior exam. Tiny calcified granuloma at the left apex. No mass or consolidation. Trachea and central airways are patent. No pleural effusions. Lymph nodes: No mediastinal, hilar, or axillary lymphadenopathy. Cardiovascular: Left atrium is prominent. No pericardial effusion. Coronary calcifications which are extensive in the left system. No thoracic aortic aneurysm. Soft tissues: Thyroid gland is small in size. No definite esophageal abnormality. Bones: Degenerative changes in the spine. 2.0 cm lucent lesion within the right posterior seventh rib which has a thin sclerotic margin. Overlying cortex is intact. Narrow zone of transition. This has nonaggressive features. CT ABDOMEN AND PELVIS: Liver: Multiple hepatic cysts measuring up to 2.3 cm in the left hepatic lobe. Other too small to characterize hypodense lesions could represent smaller cysts. 1.4 cm subtle hypodense lesion in the inferior right hepatic lobe on series 3 image 284 does not have density of a cyst. Gallbladder/biliary tree: Several calcified gallstones. No pericholecystic inflammatory changes. No biliary ductal dilatation. Spleen: No abnormality detected. Pancreas: No abnormality detected. Adrenal glands: No masses. Kidneys/ureters: No hydronephrosis. Bilateral too small to characterize hypodense lesions statistically represent cysts. 2 intrarenal stones in the mid and lower left kidney measuring up to 3 mm. Vasculature: Moderate atherosclerotic calcifications. No abdominal aortic aneurysm. Portal vein is patent. Peritoneum: No evidence of free intraperitoneal air, free fluid, or organized collections. 2.0 cm cystic retroperitoneal lesion in the right mid abdomen coronal image 72 could represent a lymphangioma. Lymph nodes: No lymphadenopathy detected. Bowel: No evidence of a bowel obstruction. No bowel inflammatory changes. Colonic diverticulosis which is most extensive involving the left colon. Cecum is positioned in the left upper abdomen indicating a mobile mesentery. Small hiatal hernia. Small horizontal duodenal diverticulum. Body wall: Ill-defined areas of fluid/edema in the subcutaneous tissues lateral to the left hip which could be posttraumatic given history of a recent fall. Clinical correlation needed. Bladder: No abnormality detected. Reproductive: Heterogeneous enlarged prostate gland with nodular contours as before which has mass effect on the bladder base. Seminal vesicles are unremarkable. Bones: Bone marrow is heterogeneous as before. Degenerative changes in the spine. Procedure Note Theodora Ferguson MD - 08/24/2025 EXAM: CT chest, abdomen, and pelvis HISTORY: Drenching night sweats for 2 months. COMPARISON: CT abdomen and pelvis 01/16/2012 TECHNIQUE: CT of the chest, abdomen, and pelvis with oral and intravenouscontrast. 100 cc of Isovue-370 administered intravenously. Coronal andsagittal reformatted images were generated. The radiation dose totalCTDIvol: 12.76 mGy. FINDINGS: CT CHEST: Lungs/pleura: 3 mm nodule in the superior segment right lower lobe onimage 124. 2 mm nodule in the right lower lobe on image 220 is stablecompared with the prior exam. Tiny calcified granuloma at the left apex.No mass or consolidation. Trachea and central airways are patent. Nopleural effusions. Lymph nodes: No mediastinal, hilar, or axillary lymphadenopathy. Cardiovascular: Left atrium is prominent. No pericardial effusion.Coronary calcifications which are extensive in the left system. Nothoracic aortic aneurysm. Soft tissues: Thyroid gland is small in size. No definite esophagealabnormality. Bones: Degenerative changes in the spine. 2.0 cm lucent lesion within theright posterior seventh rib which has a thin sclerotic margin. Overlyingcortex is intact. Narrow zone of transition. This has nonaggressivefeatures. CT ABDOMEN AND PELVIS: Liver: Multiple hepatic cysts measuring up to 2.3 cm in the left hepaticlobe. Other too small to characterize hypodense lesions could representsmaller cysts. 1.4 cm subtle hypodense lesion in the inferior righthepatic lobe on series 3 image 284 does not have density of a cyst. Gallbladder/biliary tree: Several calcified gallstones. No pericholecysticinflammatory changes. No biliary ductal dilatation. Spleen: No abnormality detected. Pancreas: No abnormality detected. Adrenal glands: No masses. Kidneys/ureters: No hydronephrosis. Bilateral too small to characterizehypodense lesions statistically represent cysts. 2 intrarenal stones inthe mid and lower left kidney measuring up to 3 mm. Vasculature: Moderate atherosclerotic calcifications. No abdominal aorticaneurysm. Portal vein is patent. Peritoneum: No evidence of free intraperitoneal air, free fluid, ororganized collections. 2.0 cm cystic retroperitoneal lesion in the rightmid abdomen coronal image 72 could represent a lymphangioma. Lymph nodes: No lymphadenopathy detected. Bowel: No evidence of a bowel obstruction. No bowel inflammatory changes.Colonic diverticulosis which is most extensive involving the left colon.Cecum is positioned in the left upper abdomen indicating a mobilemesentery. Small hiatal hernia. Small horizontal duodenal diverticulum. Body wall: Ill-defined areas of fluid/edema in the subcutaneous tissueslateral to the left hip which could be posttraumatic given history of arecent fall. Clinical correlation needed. Bladder: No abnormality detected. Reproductive: Heterogeneous enlarged prostate gland with nodular contoursas before which has mass effect on the bladder base. Seminal vesicles areunremarkable. Bones: Bone marrow is heterogeneous as before. Degenerative changes in thespine. IMPRESSION: No evidence of an acute process in the chest, abdomen, or pelvis. No lymphadenopathy. 1.4 cm subtle hypodense lesion in the right hepatic lobe does not havedensity of a cyst. Recommend liver MRI for further characterization. Cholelithiasis. Left nephrolithiasis. Colonic diverticulosis. Small right lower lobe pulmonary nodule. Pulmonary nodule recommendation:No follow-up needed if patient is low-risk (and has no known or suspectedprimary neoplasm). Non-contrast chest CT can be considered in 12 months ifpatient is high-risk (Per Fleischner Society guidelines). -------- FINAL REPORT -------- Dictated By: Theodora Ferguson Dictated Date: 08/23/2025 20:20 ET Assigned Physician: Theodora Ferguson Reviewed and Electronically Signed By: Theodora Ferguson Signed Date: 08/24/2025 09:07 ET Workstation ID: [id number] Transcribed By: Self Edit Transcribed Date: 08/23/2025 22:41 ET us Radha Glen DOW[facility]ING CT PROCEDURES Final Result * CT Chest w Contrast (08/23/2025 10:03 AM EST) Anatomical Region Laterality Modality Body Computed Tomogra phy 08/23/2025 8:20 PM EST Impressions 08/24/2025 9:07 AM EST No evidence of an acute process in the chest, abdomen, or pelvis. No lymphadenopathy. 1.4 cm subtle hypodense lesion in the right hepatic lobe does not have density of a cyst. Recommend liver MRI for further characterization. Cholelithiasis. Left nephrolithiasis. Colonic diverticulosis. Small right lower lobe pulmonary nodule. Pulmonary nodule recommendation: No follow-up needed if patient is low-risk (and has no known or suspected primary neoplasm). Non-contrast chest CT can be considered in 12 months if patient is high-risk (Per Fleischner Society guidelines). -------- FINAL REPORT -------- Dictated By: Theodora Ferguson Dictated Date: 08/23/2025 20:20 ET Assigned Physician: Theodora Ferguson Reviewed and Electronically Signed By: Theodora Ferguson Signed Date: 08/24/2025 09:07 ET Workstation ID: [id number] Transcribed By: Self Edit Transcribed Date: 08/23/2025 22:41 ET Narrative 08/24/2025 9:07 AM EST EXAM: CT chest, abdomen, and pelvis HISTORY: Drenching night sweats for 2 months. COMPARISON: CT abdomen and pelvis 01/16/2012 TECHNIQUE: CT of the chest, abdomen, and pelvis with oral and intravenous contrast. 100 cc of Isovue-370 administered intravenously. Coronal and sagittal reformatted images were generated. The radiation dose total CTDIvol: 12.76 mGy. FINDINGS: CT CHEST: Lungs/pleura: 3 mm nodule in the superior segment right lower lobe on image 124. 2 mm nodule in the right lower lobe on image 220 is stable compared with the prior exam. Tiny calcified granuloma at the left apex. No mass or consolidation. Trachea and central airways are patent. No pleural effusions. Lymph nodes: No mediastinal, hilar, or axillary lymphadenopathy. Cardiovascular: Left atrium is prominent. No pericardial effusion. Coronary calcifications which are extensive in the left system. No thoracic aortic aneurysm. Soft tissues: Thyroid gland is small in size. No definite esophageal abnormality. Bones: Degenerative changes in the spine. 2.0 cm lucent lesion within the right posterior seventh rib which has a thin sclerotic margin. Overlying cortex is intact. Narrow zone of transition. This has nonaggressive features. CT ABDOMEN AND PELVIS: Liver: Multiple hepatic cysts measuring up to 2.3 cm in the left hepatic lobe. Other too small to characterize hypodense lesions could represent smaller cysts. 1.4 cm subtle hypodense lesion in the inferior right hepatic lobe on series 3 image 284 does not have density of a cyst. Gallbladder/biliary tree: Several calcified gallstones. No pericholecystic inflammatory changes. No biliary ductal dilatation. Spleen: No abnormality detected. Pancreas: No abnormality detected. Adrenal glands: No masses. Kidneys/ureters: No hydronephrosis. Bilateral too small to characterize hypodense lesions statistically represent cysts. 2 intrarenal stones in the mid and lower left kidney measuring up to 3 mm. Vasculature: Moderate atherosclerotic calcifications. No abdominal aortic aneurysm. Portal vein is patent. Peritoneum: No evidence of free intraperitoneal air, free fluid, or organized collections. 2.0 cm cystic retroperitoneal lesion in the right mid abdomen coronal image 72 could represent a lymphangioma. Lymph nodes: No lymphadenopathy detected. Bowel: No evidence of a bowel obstruction. No bowel inflammatory changes. Colonic diverticulosis which is most extensive involving the left colon. Cecum is positioned in the left upper abdomen indicating a mobile mesentery. Small hiatal hernia. Small horizontal duodenal diverticulum. Body wall: Ill-defined areas of fluid/edema in the subcutaneous tissues lateral to the left hip which could be posttraumatic given history of a recent fall. Clinical correlation needed. Bladder: No abnormality detected. Reproductive: Heterogeneous enlarged prostate gland with nodular contours as before which has mass effect on the bladder base. Seminal vesicles are unremarkable. Bones: Bone marrow is heterogeneous as before. Degenerative changes in the spine. Procedure Note Theodora Ferguson MD - 08/24/2025 EXAM: CT chest, abdomen, and pelvis HISTORY: Drenching night sweats for 2 months. COMPARISON: CT abdomen and pelvis 01/16/2012 TECHNIQUE: CT of the chest, abdomen, and pelvis with oral and intravenouscontrast. 100 cc of Isovue-370 administered intravenously. Coronal andsagittal reformatted images were generated. The radiation dose totalCTDIvol: 12.76 mGy. FINDINGS: CT CHEST: Lungs/pleura: 3 mm nodule in the superior segment right lower lobe onimage 124. 2 mm nodule in the right lower lobe on image 220 is stablecompared with the prior exam. Tiny calcified granuloma at the left apex.No mass or consolidation. Trachea and central airways are patent. Nopleural effusions. Lymph nodes: No mediastinal, hilar, or axillary lymphadenopathy. Cardiovascular: Left atrium is prominent. No pericardial effusion.Coronary calcifications which are extensive in the left system. Nothoracic aortic aneurysm. Soft tissues: Thyroid gland is small in size. No definite esophagealabnormality. Bones: Degenerative changes in the spine. 2.0 cm lucent lesion within theright posterior seventh rib which has a thin sclerotic margin. Overlyingcortex is intact. Narrow zone of transition. This has nonaggressivefeatures. CT ABDOMEN AND PELVIS: Liver: Multiple hepatic cysts measuring up to 2.3 cm in the left hepaticlobe. Other too small to characterize hypodense lesions could representsmaller cysts. 1.4 cm subtle hypodense lesion in the inferior righthepatic lobe on series 3 image 284 does not have density of a cyst. Gallbladder/biliary tree: Several calcified gallstones. No pericholecysticinflammatory changes. No biliary ductal dilatation. Spleen: No abnormality detected. Pancreas: No abnormality detected. Adrenal glands: No masses. Kidneys/ureters: No hydronephrosis. Bilateral too small to characterizehypodense lesions statistically represent cysts. 2 intrarenal stones inthe mid and lower left kidney measuring up to 3 mm. Vasculature: Moderate atherosclerotic calcifications. No abdominal aorticaneurysm. Portal vein is patent. Peritoneum: No evidence of free intraperitoneal air, free fluid, ororganized collections. 2.0 cm cystic retroperitoneal lesion in the rightmid abdomen coronal image 72 could represent a lymphangioma. Lymph nodes: No lymphadenopathy detected. Bowel: No evidence of a bowel obstruction. No bowel inflammatory changes.Colonic diverticulosis which is most extensive involving the left colon.Cecum is positioned in the left upper abdomen indicating a mobilemesentery. Small hiatal hernia. Small horizontal duodenal diverticulum. Body wall: Ill-defined areas of fluid/edema in the subcutaneous tissueslateral to the left hip which could be posttraumatic given history of arecent fall. Clinical correlation needed. Bladder: No abnormality detected. Reproductive: Heterogeneous enlarged prostate gland with nodular contoursas before which has mass effect on the bladder base. Seminal vesicles areunremarkable. Bones: Bone marrow is heterogeneous as before. Degenerative changes in thespine. IMPRESSION: No evidence of an acute process in the chest, abdomen, or pelvis. No lymphadenopathy. 1.4 cm subtle hypodense lesion in the right hepatic lobe does not havedensity of a cyst. Recommend liver MRI for further characterization. Cholelithiasis. Left nephrolithiasis. Colonic diverticulosis. Small right lower lobe pulmonary nodule. Pulmonary nodule recommendation:No follow-up needed if patient is low-risk (and has no known or suspectedprimary neoplasm). Non-contrast chest CT can be considered in 12 months ifpatient is high-risk (Per Fleischner Society guidelines). -------- FINAL REPORT -------- Dictated By: Theodora Ferguson Dictated Date: 08/23/2025 20:20 ET Assigned Physician: Theodora Ferguson Reviewed and Electronically Signed By: Theodora Ferguson Signed Date: 08/24/2025 09:07 ET Workstation ID: [id number] Transcribed By: Self Edit Transcribed Date: 08/23/2025 22:41 ET us Radha HOFFMAN IMG CT PROCEDURES Final Result * (ABNORMAL) Basic metabolic panel (08/22/2025 1:34 PM EST) Sodium 137 133 - 145 mmol/L LAB CHEMISTRY METHOD 08/22/2025 5:03 PM [facility] Potassium 4.4 3.5 - 5.5 mmol/L LAB CHEMISTRY METHOD 08/22/2025 5:03 PM [facility] Chloride 105 96 - 110 mmol/L LAB CHEMISTRY METHOD 08/22/2025 5:03 PM [facility] CO2 29 21 - 32 mmol/L LAB CHEMISTRY METHOD 08/22/2025 5:03 PM [facility] Anion Gap 3 3 - 11 LAB CHEMISTRY METHOD 08/22/2025 5:03 PM [facility] Glucose 97 70 - 100 mg/dL LAB CHEMISTRY METHOD 08/22/2025 5:03 PM [facility] BUN 24 5 - 25 mg/dL LAB CHEMISTRY METHOD 08/22/2025 5:03 PM [facility] Creatinine 1.33(H) 0.70 - 1.30 mg/dL LAB CHEMISTRY METHOD 08/22/2025 5:03 PM [facility] eGFR 54(L) >=60 mL/min/1. 73m2 LAB CHEMISTRY METHOD 08/22/2025 5:03 PM [facility] Comment:Calculation based on the Chronic Kidney Disease Epidemiology Collaboration (CKD-EPI) equation refit without adjustment for race. BUN/Creatinine Ratio 18.0 LAB CHEMISTRY METHOD 08/22/2025 5:03 PM [facility] Calcium 9.3 8.5 - 10.5 mg/dL LAB CHEMISTRY METHOD 08/22/2025 5:03 PM [facility] Blood Venous blood specimen / Unknown Venipuncture / Unknown 08/22/2025 1:34 PM EST 08/22/2025 1:34 PM EST us Radha Glen HOFFMAN LAB BLOOD ORDERABLES Final Resul t [facility] [address] [place] [address], [place] [phone] * External Xray Report (08/16/2025) Only the most recent of2 resultswithin the time period is included. Anatomical Region Laterality Modality Radiographic Zuleyma ging us Provider [facility] XR PROCEDURES Final Result * External CT Report (08/16/2025) Only the most recent of4 resultswithin the time period is included. Anatomical Region Laterality Modality Computed Tomogra phy Provider [facility] CT PROCEDURES Final Result * Thyroid stimulating hormone with reflex to free t4 and free t3 (07/06/2025 7:36 AM EDT) TSH 3.21 0.40 - 4.00 mcIU/mL LAB CHEMISTRY METHOD 07/06/2025 11:[address] [facility] Blood Venous blood specimen / Unknown Venipuncture / Unknown 07/06/2025 7:36 AM EDT 07/06/2025 7:36 AM EDT Donna HOFFMAN LAB BLOOD ORDERABLES Final Resul t Performing Organization Address [facility]/ZIP Co de Phone Number [facility] [address] [place] [address], [place] [phone] * Lipid panel with reflex to direct [...] 4.4 LAB CHEMISTRY METHOD 07/06/2025 10:[address] [facility] Blood Venous blood specimen / Unknown Venipuncture / Unknown 07/06/2025 7:36 AM EDT 07/06/2025 7:36 AM EDT Adalberto HOFFMAN LAB BLOOD ORDERABLES Poonam l Result [facility] [address] [place] [address], * Testosterone free, bioavailable and total (07/06/2025 7:36 AM EDT) Testosterone 611 229 - 902 ng/dL LAB CHEMISTRY METHOD 07/06/2025 6:[address] [facility] Testosterone, Free 7.0 0.6 - 7.3 ng/dL LAB CHEMISTRY METHOD 07/06/2025 6:[address] [facility] Testosterone, Bioavailable 149 15 - 150 ng/dL LAB CHEMISTRY METHOD 07/06/2025 6:[address] [facility] Sex Hormone Binding 82.0 See Comment nmol/L LAB CHEMISTRY METHOD 07/06/2025 6:[address] [facility] Comment: FEMALES: pre-menopausal [...] 7:36 AM EDT 07/06/2025 7:36 AM EDT Donna HOFFMAN LAB BLOOD ORDERABLES Final Resul t [facility] [address] [place] [address], * (ABNORMAL) CBC auto differential (07/06/2025 7:36 AM EDT) WBC 6.8 4.8 - 10.8 K/mcL LAB HEMETOLOGY METHOD 07/06/2025 10:[address] [facility] RBC 3.60(L) 4.50 - 5.50 M/mcL LAB HEMETOLOGY METHOD 07/06/2025 10:[address] [facility] Hemoglobin 12.3(L) 13.5 - 17.5 g/dL LAB HEMETOLOGY METHOD 07/06/2025 10:[address] [facility] Hematocrit 37.3(L) 42.0 - 54.0 % LAB HEMETOLOGY METHOD 07/06/2025 10:[address] [facility] MCV 103.0(H) 79.0 - 98.0 FL LAB HEMETOLOGY METHOD 07/06/2025 10:[address] [facility] MCH 34.0(H) 27.0 - 32.0 pcg LAB HEMETOLOGY METHOD 07/06/2025 10:[address] [facility] MCHC 33.0 32.0 - 37.0 g/dL LAB HEMETOLOGY METHOD 07/06/2025 10:[address] [facility] RDW 13.7 11.0 - 15.0 % LAB HEMETOLOGY METHOD 07/06/2025 10:[address] [facility] Platelets 172 130 - 400 K/mcL LAB HEMETOLOGY METHOD 07/06/2025 10:[address] [facility] MPV 10.1 7.0 - 11.0 FL LAB HEMETOLOGY METHOD 07/06/2025 10:[address] [facility] NRBC 0.0 <1.0 % LAB HEMETOLOGY METHOD 07/06/2025 10:[address] [facility] NRBC Absolute 0.00 <0.10 K/mcL LAB HEMETOLOGY METHOD 07/06/2025 10:[address] [facility] Neutrophils Relative 62.3 % LAB HEMETOLOGY METHOD 07/06/2025 10:[address] [facility] Lymphocytes Relative 20.6 % LAB HEMETOLOGY METHOD 07/06/2025 10:[address] [facility] Monocytes Relative 12.6 % LAB HEMETOLOGY METHOD 07/06/2025 10:[address] [facility] Eosinophils Relative 3.8 % LAB HEMETOLOGY METHOD 07/06/2025 10:[address] [facility] Basophils Relative 0.3 % LAB HEMETOLOGY METHOD 07/06/2025 10:[address] [facility] Immature Granulocytes Relative 0.4 % LAB HEMETOLOGY METHOD 07/06/2025 10:[address] [facility] Neutrophils Absolute 4.25 1.50 - 7.00 K/mcL LAB HEMETOLOGY METHOD 07/06/2025 10:[address] [facility] Lymphocytes Absolute 1.41 1.00 - 5.00 K/mcL LAB HEMETOLOGY METHOD 07/06/2025 10:[address] [facility] Monocytes Absolute 0.86 0.20 - 1.00 K/[facility] HEMETOLOGY METHOD 07/06/2025 10:[address] [facility] Eosinophils Absolute 0.26 0.00 - 0.50 K/[facility] HEMETOLOGY METHOD 07/06/2025 10:[address] [facility] Basophils Absolute 0.02 0.00 - 0.20 K/[facility] HEMETOLOGY METHOD 07/06/2025 10:[address] [facility] Immature Granulocytes Absolute 0.03 0.00 - 0.03 K/[facility] HEMETOLOGY METHOD 07/06/2025 10:[address] [facility] Blood Venous blood specimen / Unknown Venipuncture / Unknown 07/06/2025 7:36 AM EDT 07/06/2025 7:36 AM EDT Donna HOFFMAN LAB BLOOD ORDERABLES Final Resul t [facility] [address] [place] [address], * Cortisol (07/06/2025 7:36 AM EDT) [facility] Signature Cortisol 9.4 mcg/dL LAB CHEMISTRY METHOD 07/06/2025 6:[address] [facility] Blood Venous blood specimen / Unknown Venipuncture / Unknown 07/06/2025 7:36 AM EDT 07/06/2025 7:[address] [facility] - 07/06/2025 6:44 PM EDT CORTISOL REFERENCE RANGE 8 AM SPEC: 5.0-23.0 mcg/dL 4 PM SPEC: 3.0-16.0 mcg/dL 8 PM SPEC: <5.0 mcg/dL us Donna HOFFMAN LAB BLOOD ORDERABLES Final Resul t [facility] [address] [place] [address], [place] [phone] * (ABNORMAL) Comprehensive metabolic panel (07/06/2025 7:36 AM EDT) Sodium 141 133 - 145 mmol/L LAB CHEMISTRY METHOD 07/06/2025 10:[address] [facility] Potassium 4.3 3.5 - 5.5 mmol/L LAB CHEMISTRY METHOD 07/06/2025 10:[address] [facility] Chloride 108 96 - 110 mmol/L LAB CHEMISTRY METHOD 07/06/2025 10:[address] [facility] CO2 27 21 - 32 mmol/L LAB CHEMISTRY METHOD 07/06/2025 10:[address] [facility] Anion Gap 6 3 - 11 LAB CHEMISTRY METHOD 07/06/2025 10:[address] [facility] Glucose 92 70 - 100 mg/dL LAB CHEMISTRY METHOD 07/06/2025 10:[address] [facility] BUN 29(H) 5 - 25 mg/dL LAB CHEMISTRY METHOD 07/06/2025 10:[address] [facility] Creatinine 1.27 0.70 - 1.30 mg/dL LAB CHEMISTRY METHOD 07/06/2025 10:[address] [facility] eGFR 57(L) >=60 mL/min/1. 73m2 LAB CHEMISTRY METHOD 07/06/2025 10:[address] [facility] Comment:Calculation based on the Chronic Kidney Disease Epidemiology Collaboration (CKD-EPI) equation refit without adjustment for race. BUN/Creatinine Ratio 22.8 LAB CHEMISTRY METHOD 07/06/2025 10:[address] [facility] Calcium 9.1 8.5 - 10.5 mg/dL LAB CHEMISTRY METHOD 07/06/2025 10:[address] [facility] AST (SGOT) 22 10 - 42 unit/L LAB CHEMISTRY METHOD 07/06/2025 10:[address] [facility] ALT (SGPT) 31 10 - 60 unit/L LAB CHEMISTRY METHOD 07/06/2025 10:[address] [facility] Alkaline Phosphatase 69 42 - 121 unit/L LAB CHEMISTRY METHOD 07/06/2025 10:[address] [facility] Total Protein 6.4 6.0 - 8.0 g/dL LAB CHEMISTRY METHOD 07/06/2025 10:[address] [facility] Albumin 3.8 3.2 - 5.0 g/dL LAB CHEMISTRY METHOD 07/06/2025 10:[address] [facility] Total Bilirubin 0.9 0.0 - 1.4 mg/dL LAB CHEMISTRY METHOD 07/06/2025 10:[address] [facility] Blood Venous blood specimen / Unknown Venipuncture / Unknown 07/06/2025 7:36 AM EDT 07/06/2025 7:36 AM EDT Donna HOFFMAN LAB BLOOD ORDERABLES Final Resul t [facility] [address] [place] [address], * XR Chest 2 Views (07/05/2025 4:48 [...] Signed Date: 07/05/2025 20:06 ET Workstation ID: [id number] Transcribed By: Self Edit Transcribed Date: 07/05/2025 [...] Signed Date: 07/05/2025 20:06 ET Workstation ID: [id number] Transcribed By: Self Edit Transcribed Date: 07/05/2025 20:05 ET us Donna HOFFMAN IMG XR PROCEDURES Final Result from Last 3 Months Additional Health Concerns Active Problems Noted Date Diagnosed Date Impaired Tissue 09/02/2024 Education needed on impact of smoking on wound 1 11/02/2023 Education needed related to ulceration/compromised skin integrity. 09/02/2024 Impaired Tissue 08/29/2025 Education needed on impact of smoking on wound 1 10/29/2024 Education needed related to ulceration/compromised skin integrity. 08/29/2025 Insurance [employer]UE [employer]OSS - [place] MEDICARE ADVANTAGE Advance Directives Documents on File Type Date Recorded Patient Manager Sterile Processing Expl anation Health Care Decision (hx) 01/07/2018 AD UP DIRECTIVE Health Care Decision (hx) 01/07/2018 AD UP DIRECTIVE Care Teams [place] Molder Relationship Specialty Start Date End Date Adalberto Zepeda PA [address] [place] [address] PCP - General Internal Medicine 08/18/24
--- OUTSIDE RECORDS SUMMARY | 2025-10-04 08:08 | XMS_ITS | Data Portability ---
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 Not available 06/07/2025 10:02:29 09/06/2025 09/06/2025 IMPRESSION: 79-year-old ilkkq-bkei-qmruvv nt man with left shoulder cuff tear [...] clinical evaluation and treatment discussion. Not available 09/06/2025 09:33:20 Plan of Treatment Reminders Order Date Submit Date Provider Last Modified By Organization Details Last Modified Time Details Appointments FOLLOW UP 2025 08:30A Lc Salazar MD Not available Not available Not available Lab None recorded. Referral None recorded. Procedures None recorded. Surgeries None recorded. Imaging XR, shoulder, 2 or more view 2024 025 [email or web address] [facility], [address], [address], [place], [address], 09/10/2025 11:58:28 Medication Orders lidocaine (PF) 10 mg/mL (1 %) injection solution 2024 025 [email or web address] Not available 09/07/2025 14:26:41 Marcaine (PF) 0.5 % (5 mg/mL) injection solution 2024 025 [email or web address] Not available 09/07/2025 14:26:41 triamcino lone acetonide 40 mg/mL suspensio n for injection 2024 025 [email or web address] Not available 09/07/2025 14:26:41 lidocaine (PF) 10 mg/mL (1 %) injection solution 2024 025 Not available 06/10/2025 16:36:05 Marcaine (PF) 0.5 % (5 mg/mL) injection solution 2024 025 [email or web address] Not available 06/10/2025 16:36:05 triamcino lone acetonide 40 mg/mL suspensio n for injection 2024 025 [email or web address] Not available 06/10/2025 16:36:05 lidocaine (PF) 10 mg/mL (1 %) injection solution 2024 025 [email or web address] Not available 02/23/2025 09:45:00 Marcaine (PF) 0.5 % (5 mg/mL) injection solution 2024 025 Not available 02/23/2025 09:45:00 triamcino lone acetonide 40 mg/mL suspensio n for injection 2024 025 [email or web address] Not available 02/23/2025 09:45:00 lidocaine (PF) 10 mg/mL (1 %) injection solution 2024 025 [email or web address] Not available 11/23/2024 15:38:24 Marcaine (PF) 0.5 % (5 mg/mL) injection solution 2024 025 [email or web address] Not available 11/23/2024 15:38:24 triamcino lone acetonide 40 mg/mL suspensio n for injection 2024 025 [email or web address] Not available 11/23/2024 15:38:24 lidocaine (PF) 10 mg/mL (1 %) injection solution 2024 025 [email or web address] [id number], [address] [facility] [place], [address], 10/21/2024 13:13:53 triamcino lone acetonide 40 mg/mL suspensio n for injection 2024 025 [email or web address] r1 [id number], [address] [facility] [place], [address], 10/21/2024 13:13:53 diclofena c 1 % topical gel 2024 025 JUSTO [id number], [address] [facility] [place] [place], [address], 10/21/2024 09:08:00 Patient TargetsNo targets recorded. Patient Instructions Encounter Date Encounter Id Patient Instructions Last Modified By Organization Details Last Modified Time 10/21/2024 [id number] You have been provided with a cortisone [...] hours following the injection. This is called chau sloan . To help minimize the chances of this, please see the post-injection instructions above. There is a less than 1% chance of an infection. If you notice any signs of infection (redness, warmth, drainage, fever greater than 100 degrees) please call our office or contact us through the portal TAMIE. 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 56556491 Active 2023 Leidy frost MD [address], [place], [address], [place] [facility] 4 13:08:36 Arthritis of left glenohumera l joint 7752495130975 100 Active 2023 Leidy frost MD [address], [place], [address], [place] [facility], 4 11:54:47 Triggering of digit 314424781 Active 2023 Leidy frost MD [address], [place], [address], [place] [facility] 4 11:56:43 Arthritis 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 Procedures Surgical History Date Name Laterality Status Provider Name and Address Organization Details Recorded Time 09/06/20 25 AJR Shoulder GH Inj completed Edwardo Salazar MD [address], [place], [address], [place] [facility] 09/06/2025 09:32:37 06/07/20 25 AJR Shoulder GH Inj completed Edwardo Salazar MD [address] [facility], [place], [address], [place] [facility] 06/07/2025 09:44:41 02/23/20 25 AJR Shoulder GH Inj completed Edwardo Salazar MD [address] [facility], [place], [address], [place] [facility] 02/22/2025 09:19:33 11/23/19 25 AJR Shoulder GH Inj completed Edwardo Salazar MD [address], [place], [address], [place] [facility] 11/23/2024 09:36:38 10/21/19 25 LES finger joint injection completed Leidy Langford MD [address], [place], [address], [place] [facility] 10/21/2024 09:05:14 08/12/20 24 LES finger joint injection completed Leidy Langford MD [address], [place], [address], [place] [facility] 08/12/2024 09:33:13 08/12/20 24 LES Subacromial Shoulder Inj completed Leidy Langford MD [address] [facility],[address], [place], [address], [place] [facility] 08/12/2024 09:32:56 05/13/20 24 LES Subacromial Shoulder Inj completed Leidy Langford MD [address] [facility],[address], [place], [address], [place] [facility] 05/13/2024 11:53:24 04/01/20 24 LES trigger finger/De Quervain's injection completed Leidy Langford MD [address] [facility],[address] [address], [place], [address], [place] [facility] 04/01/2024 11:47:54 02/26/20 24 LES finger joint injection completed Leidy Langford MD [address] [facility],[place] [address], [place], [address], [place] [facility] 02/26/2024 13:10:34 Imaging Results None recorded. Procedure Notes None recorded. Medical Equipment None Reported. Allergies Allergen ID Allergen Name Allergen Category Reaction Reaction Severity Criticality Documentation Date Start Date Code Code System Note Provider Name and Address Organization Details Recorded Time 351659 minocycli ne hydrochlo ride medicatio n Not available Not available Not available 09/05/20252017 6979 RxNorm Not Available [employer] - prod 5 10:57:05 966304 polymyxin B sulfate medicatio n Not available Not available Not available 09/05/20252018 388 RxNorm Not Available [employer] - prod 5 10:57:05 526300 acetamino phen / oxycodone medicatio n Not available Not available unabletoasse 09/05/2025 07733 3 RxNorm Not Available [employer] - prod 5 10:57:15 822011 polymyxin B medicatio n rash Not available high 09/05/20252018 8536 RxNorm Not Available [employer] - External [employer] - prod 5 10:58:09 65579 acetamino phen / oxycodone medicatio n Not available Not available Not available 02/26/2024 50451 3 RxNorm Cassidy Duggan null, [place] [facility] 4 09:31:06 55982 oxycodone medicatio n Not available Not available Not available 02/26/2024 7804 RxNorm Cassidy Duggan null, [place] [facility] 4 09:31:25 43264 amoxicill in medicatio n Not available Not available Not available 02/26/2024 723 RxNorm Cassidy Duggan null, [place] [facility] 4 09:31:33 85928 erythromy leisa medicatio n Not available Not available Not available 02/26/2024 4053 RxNorm Cassidy Duggan null, [place] [facility] 4 09:31:43 09117 minocycli ne medicatio n Not available Not available Not available 04/01/2024 6980 RxNorm Cassidy Duggan null, [place] [facility] 4 11:19:40 01223 sertralin e medicatio n Not available Not available Not available 04/01/2024 35823 RxNorm Cassidy Duggan null, [place] [facility] 4 11:19:48 Medications Name Sig Start [...] Updated DateTime 10/21/2024 177.8 cm 22 kg/m2 08989.[address] [place] [facility], 10/21/2024 08:55:09 Social History None recorded. Functional Status Question Answer Note LastModified by Organizat ion Details LastModified Time Do you use any illicit or recreational drugs? No [email or web address] Information not available 02/26/2024 Do you or have you ever used any other forms of tobacco or nicotine? No [email or web address] Information not available 02/26/2024 What is your level of alcohol consumption? None [email or web address] Information not available 02/26/2024 Mental Status None [...] Anemia N Brain Injury N Heart Attack ([place]) N Osteopenia N Diabetes N Bleeding Disorder [...] ICD10 Code Diagnosis IMO Codes Diagnosis Note [id number] [facility] [address] [facility] [address] [place] [address] 02/26/2024 09:18:47 02/26/2024 10:20:59 Pain of left wrist 8656614238 63964 M25.532 Additional diagnosis detail: Left wrist pain Closed fra cture of distal end of radius 86586619 S52.572A Additional diagnosis detail: Other closed intra-venkata cular fracture of distal end of left radius, initial encounter Osteoarthr osis of the carpometacarpal joint of the thumb 42949358 M18.12 Additional diagnosis detail: Primary osteoarthr itis of first carpometac arpal joint of left hand [id number] MD BLANCO George [facility] [address] [address] 04/01/2024 11:09:01 04/01/2024 11:44:29 Closed fracture of distal end of radius 72844875 S52.572A Additional diagnosis detail: Other closed intra-venkata cular fracture of distal end of left radius, initial encounter Osteoarthr osis of the carpometacarpal joint of the thumb 35223370 M18.12 Additional diagnosis detail: Primary osteoarthr itis of first carpometac arpal joint of left hand Triggering of digit 2399 35745 M65.332 Additional diagnosis detail: Trigger middle finger of left hand, trigger ring finger of left hand [id number] MD [facility]WINDER [facility] [address] [address] 05/13/2024 10:26:20 05/13/2024 11:10:39 Closed fracture of distal end of radius 60752298 S52.572A Additional diagnosis detail: Other closed intra-venkata cular fracture of distal end of left radius, initial encounter Osteoarthr osis of the carpometacarpal joint of the thumb 84259096 M18.12 Additional diagnosis detail: Primary osteoarthr itis of first carpometac arpal joint of left hand Chronic pa in of left upper limb 3747326012 8804469 M25.512 G89.29 Additional diagnosis detail: Chronic left shoulder pain Pain of le ft shoulder joint 7374441201 3751117 M25.512 Additional diagnosis detail: Pain, joint, shoulder, left Arthritis of left glenohumeral joint 5065803923 867035 M19.012 Triggering of digit 2399 34175 M65.342 M65.332 Additional diagnosis detail: Trigger finger, left ring fingerAddi tional diagnosis detail: Trigger finger, left middle finger [id number] MD BLANCO George [address] [place] [address] 08/12/2024 08:16:17 08/12/2024 08:54:36 Arthritis of left glenohumeral joint 6472285278 255859 M19.012 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 6081264359 242248 M18.12 78515765 [id number] MD BLANCO George [address] [place] [address] 10/21/2024 08:09:50 10/21/2024 09:19:40 Osteoarthrosis of the carpometacarpal joint of the thumb 99769091 M18.12 Additional diagnosis detail: Primary osteoarthr itis of first carpometac arpal joint of left hand 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 1112798302 381531 M18.11 55523979 Osteoarthr itis of finger joint of right hand 9696628936 8740366 M15.9 [id number] MD BLANCO Siddiqui [address] [place] [address] 11/23/2024 08:34:37 11/23/2024 09:36:16 Arthritis of left glenohumeral joint 1299273405 608639 M19.012 [id number] MD [facility]CO [facility] [address] [place] [address] 02/22/2025 08:42:05 02/22/2025 09:22:39 Arthritis of left glenohumeral joint 5709880550 207771 M19.012 [id number] MD BLANCO Siddiqui [facility] [address] [facility] [address] [place] [address] 06/07/2025 09:34:43 06/07/2025 10:04:05 Arthritis of left glenohumeral joint 3998151214 712870 M19.012 [id number] MD BLANCO Siddiqui [facility] 299 [facility] [address] [place] [place] [address] 09/06/2025 08:43:59 09/06/2025 09:24:46 Arthritis of left glenohumeral joint 8237763275 273678 M19.012 Health Concerns Section Related Observation LastModified by Organization Detai ls LastModified Time None Recorded Concern Status LastModified by Organization Details LastModified Time None Recorded Advance Directives Directive None Recorded Payers Insurance Date Sequence Insurance Name Policy Number Policy Carrillo Covered Member ID Carrillo Member ID Guarantor Name 09/03/2025 1 [facility]: [place]ARE [place]PO BLUE (MEDICARE REPLACEMENT PPO) [id number] Caleb Martínez [id number] Caleb Martínez Notes Date Note Type Note Provider Name and Address Organization Details Recorded Time 10/21/2024 text/html ROS as noted in the [...] helpful. 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 He does have pain in his left shoulder for which I gave him a cortisone injection on 08/12/2024 for glenohumeral joint arthritis. Leidy Langford MD [address] [facility] [address], [place], [address], [place] [facility] 10/21/2024 09:51:15 11/23/2024 text/html ROS as noted in the HPI 79-year-old ngpbj-sioa-krszuzyo man with left shoulder pain for years. 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 Edwardo Salazar MD [address] [facility] [address], [place], [address], [place] [facility] 11/23/2024 09:41:56 02/22/2025 text/html ROS as noted in the HPI Caleb returns to the office today. He had 10 weeks of relief from this injection. He recently started Enbrel for his rheumatoid arthritis which he is unsure if it is helping. His daughter has returned from the hospital that his home. PRIOR AR 9-5-3999-year-old qafrj-nsqw-mlqvqdma man with left shoulder pain for years. 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 Edwardo Salazar MD [address] [facility] [address], [place], [address], [employer] [facility] P 02/22/2025 09:21:17 06/07/2025 text/html ROS as [...] the hospital that his home. PRIOR AR 0-7-3247-year-old uljdi-enyx-iszuhlbm man with left shoulder pain for years. 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 Edwardo Salazar MD [address] [place] [address], [address], [place] [facility] 06/07/2025 10:02:52 09/06/2025 text/html ROS as noted in the [...] if he gets some relief. PRIOR AR 8-25Paul is doing well. The injection helped his [...] the hospital that his home. PRIOR AR 7-4-7803-year-old hhafd-fhco-duxqtbxk man with left shoulder pain for years. 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 Edwardo Salazar MD [address] [place] [address], [place], [address], [place] [facility] 09/06/2025 09:35:38
--- OUTSIDE RECORDS SUMMARY | 2025-10-04 08:08 | XMS_ITS | Encounter Summary ---
Author Organization [facility] Address [address] [place] [address] Care Team Providers Care Rn Managed Care Name Role Phone Adalberto Zepeda Primary Care Provider [phone] Encounter Details Date Type Department Care Team (Late st Contact Info) Description 08/23/2025 Results Follow-Up Adult Medicine [facility] [address] [place], [place] [phone] Radha Carroll PA [address] [place], [place] Social History Tobacco Use Types Packs/Day Years [...] Description 10/17/2025 9:00 AM EST Clinical Support [facility] [address] [place] [address] 11/30/2025 9:00 AM EST Office Visit Adult [address] [address] Adalberto Zepeda PA [address] [place] [address] 06/01/2026 9:15 AM EDT Office Visit [facility] [address] [place] [address] Katja Lainez MD [address] [place] [address] documented as of this encounter Goals [...] documented as of this encounter Visit Diagnoses Not on filedocumented in this encounter Additional Health Concerns Active [...] documented as of this encounter Care Teams Rn Managed Care Relationship Specialty Start Date End Date Adalberto Zepeda PA [address] [place] [address] PCP - General Internal Medicine 08/18/24 documented as of this encounter
[2025-10-04 10:44] LABS: MANUAL DIFF FLAG NO
[2025-10-04 11:02] LABS: Hematocrit 33.8 % (42.0-52.0); Hemoglobin 10.4 g/dl (14.0-18.0); Imm Gran Abs Auto 0.01 X10*3/uL (0.00-0.03); Imm Gran Pct Auto 0.2 % (0.0-0.4); Lymphocytes Absolute Auto 1.5 X10*3/uL (1.2-4.9); Mean Corpuscular HGB Conc 30.8 g/dl (31.0-36.0); Mean Corpuscular Hemoglobin 31.6 pg (27.0-33.0); Mean Corpuscular Volume 102.7 fL (80.0-98.0); NRBC Abs Auto 0.000 X10*3/uL (0.0-0.012); NRBC Pct Auto 0.0 /100WBC (0.0-0.2); Platelet Count 179 X10*3/uL (160-400); Red Blood Count 3.29 X10*6/uL (4.60-5.80); White Blood Count 6.1 X10*3/uL (4.8-10.8)
[2025-10-04 12:01] LABS: Alanine Aminotransferase 21 U/L (0-40); Albumin Level 4.1 g/dL (3.5-5.0); Alkaline Phosphatase 82 U/L (39-117); Anion Gap 12 (12-20); Aspartate Amino Transferase 28 U/L (5-37); Blood Urea Nitrogen 18 mg/dL (9-16); Calcium 9.0 mg/dL (8.4-10.2); Carbon Dioxide 26 mmol/L (22-29); Chloride 110 mmol/L (96-108); Estimated Glomerular Filt Rate 59; Potassium 4.1 mmol/L (3.3-5.1); Sodium 144 mmol/L (135-145); Total Protein 6.5 g/dL (6.5-8.0)
== END 2025-10-04 07:58 | disposition home or self-care (01) ==
LOC: HO.HMGCLDS 07:57
PROVIDERS: PCP Physician Assistant Medical; Visit Provider Student in an Organized Health Care Education/Training Program
DX: Z79.899 Other long term (current) drug therapy (principal)
CPT/HCPCS: 36415; 80053; 85025; 85652; 86140

== ENCOUNTER 2025-10-07 08:28 | Outpatient (AMB) | payer BC, SELFPAY ==
--- OUTSIDE RECORDS SUMMARY | 2025-01-14 04:20 | XMS_ITS ---
Author Organization [facility] Address [address] [place] [address] Drive [address] [place] [phone] Care Team Providers Care Speech Language Therapist Name Role Phone Raman WARE, Vandana Primary Care Provider Unavail Eugene Hoang Jr Unavailable REASON FOR VISIT dysphagia Encounters Encounter Location Date Provider Diagnosis [facility] [place] Outpatient [address] [place], [place] [phone] 01/14/2025 Eugene Iyer Jr Dysphagia R13.10 Assessments Encounter Date Diagnosis (ICD Code) Assessment Notes Treatment Notes Treatment Clinical Notes Section Notes 01/14/2025 Dysphagia (ICD-10 - R13.10) Plan Of Treatment Next Appt Details Provider Name:Eugene domingo Jr, 04/17/2026 09:40:00 AM, [address] [place] [address], [address], [place], [address], Progress Notes * KOFI STANLEYDOB:1945 (79 yo M)Acc No.[id number]:01/14/2025 EGD/MAC Patient: KOFI ETIENNE Provider: Fran Iyer MD :1945 A ge:79 Y S ex:Male Date:01/14/2025 Address:[id number] Pcp:Vandana Camargo NP Subjective: * Chief Complaints: * D ysphagia Assessment: * Assessment: 1. D ysphagia - R13.10 (Primary) Plan: * Procedure Codes: 4 3239 UPPER GI ENDOSCOPY, [id number] ESOPH ENDOSCOPY, DILATION, Modifiers: 59 Billing Information: * Procedure Codes: 23261 UPPER GI ENDOSCOPY, BIOPSY. 26115 ESOPH ENDOSCOPY, DILATION. Modifiers: 59 * The named appointment provid er may or may not be the originator of this progress note, and it is not deemed complete until electronically signed by the appointment provider. Sign off status: Pending * Provider: Fran Iyer MD Date: 0 01/14/2025 Generated for Rona leung/Hesham/Petersonitting on: 1 12/08/2024 08:35 AM EST
--- OUTSIDE RECORDS SUMMARY | 2025-10-03 09:00 | XMS_ITS | Encounter Summary ---
Author Organization [employer] Address [address] [place] [address] Care Team Providers Care Manager Leadership Development Name Role Phone Adalberto Zepeda Primary Care Provider [phone] Reason for Visit * Reason Comments Wound Care Encounter Details Date Type Department Care Team (Late st Contact Info) Description 10/03/2025 9:00 AM EST Office Visit [facility] [address] [place] [address] Imelda Delatorre MD [address] [place] [phone] Skin tear of left elbow without complication, subsequent encounter (Primary Dx); Non-pressure chronic ulcer of skin of other sites limited to breakdown of skin (CMS/HCC V24, CMS/HCC V28); Skin tear of left forearm without complication, subsequent encounter; Non-pressure chronic ulcer of left forearm, limited to breakdown of skin; Skin tear of right forearm without complication, initial encounter; 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 For example, child care cook or elderly care for an older adult? [...] Sign Reading Time Taken Comments Blood Pressure 134/68 10/03/2025 8:49 AM EST Pulse 70 10/03/2025 8:49 AM EST Temperature 35.9 C (96.6 F) 10/03/2025 8:49 AM EST Respiratory Rate 16 10/03/2025 8:49 AM EST Oxygen Saturation 100% 10/03/2025 8:49 AM EST Inhaled Oxygen Concentration - - Weight - - Height - - Body Mass Index - - documented in this encounter Progress Notes * Esha Zamudio RN - 10/03/2025 9:00 AM EST PROVIDER ORDERS Go to ER if you are presenting with fever, chills, increased redness, pain, swelling, warmth aroundwound area and/or foul smelling odor. If you have any questions or concerns, please contact the [facility] [place] at . Follow up(s)/ Referrals: N/A Long-Term: N/A Additional Orders: N/A Lidocaine Orders: Apply Lidocaine 5% Topical Ointment prior to debridements at Wound Care appointments Edema Control: (If your compression wrap(s) feel to tight, please elevate your leg(s) about heart level. If your wrap(s) are becoming painful and/or you loose sensation of toes/ are having toe discoloration (a change from your baseline), please remove / unwrap compression and notify [facility] [place] at . ) N/A Offloading: N/A Negative Pressure Wound Therapy: (If wound vac is off/non functioning for more than 2 hours, please remove vac dressing, apply a wetto dry dressing and notify your home care agency) N/A Cellular/Tissue Based Products: N/A Bathing / Showering / Hygiene: May shower without wound dressing. Non-wound Condition/ Other Skin Care: N/A Wound Location(s): Wound #1 (Left Elbow): -Wound is healed Wound #2 (Left posterior lower arm): -Wound is healed Wound #3 (Right forearm): Cleanser: Cleanse with Normal Saline Periwound: N/A Topical: Mupirocin 2% ointment- Apply a thin layer to wound bed Primary dressing: N/A Secondary dressinx4 woven gauze (non-sterile) Secure with: 2 conforming gauze roll, Spandage size 3, 1 paper tape Compression Therapy: N/A Dressing Change Frequency: Daily * Imelda Delatorre MD - 10/03/2025 9:00 AM EST Images from the original note were not included. [facility] [place] [address] Office Visit Visit Date: 10/03/2025 Patient Name: Caleb Martínez Date of : 1945 PCP: YASMIN Ziegler HPI: Caleb returns for follow-up skin changes of his left elbow left shoulder and left knee, treatedwith mupirocin dressing change daily. Patient has a history of Parkinson's disease, hypertension, PTSD, has thin atrophic skin. This past weekend when [place] he sustained another evaluation skin tear of his right forearm, measuring 6 x 1.3 x 0.1 cm. Periwound skin is intact. 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 Recheck in 2 weeks. All questions were answered to his satisfaction. He was counseled regarding my impressions, instructions for management, and the importance of compliance with treatment. Follow up in about 2 weeks (around 10/17/2025) for Follow up with Dr. Delatorre. >>>>>>>>>>>>>>>>>>>>>>>>>>>>>>>>>>>>>>>>>>>>>>>>>>> Vital Signs: Visit Vitals BP 134/68 (BP Location: Left arm, Patient Position: Sitting, BP Cuff Size: Adult) Pulse 70 Temp 35.9 ??C (96.6 ??F) (Temporal) Resp 16 SpO2 100% Smoking Status Never Review of Systems: Review of Systems PHYSICAL EXAM left shoulder, left elbow and left knee skin tear old healed. Radial pulses palpable bilaterally. Right forearm he has a new skin tear no edema. Periwound skin intact no cellulitis. WOUND ASSESSMENT If photograph of wound not visible on this note, please check under Media tab. Wound Skin Tear 08/29/25 Elbow Left;Posterior (Active) Date First Assessed/Time First Assessed: 08/29/25 0831 Primary Wound Type: Skin Tear Wound Approximate Age at First Assessment (Weeks): 12 weeks Hand Hygiene Completed: Yes Location: Elbow Wound Location Orientation: Left;Posterior Assessments 08/29/2025 8:32 AM 10/03/2025 9:02 AM Wound Image Wound Bed Tissue Assessment Granulation Epithelialization Daiana-Wound Assessment Intact Scarred Wound Length (cm) 3 cm 0 cm Wound Width (cm) 4.5 cm 0 cm Wound Surface Area (cm^2) 10.6 cm^2 0 cm^2 Wound Depth (cm) 0.1 cm 0 cm Wound Volume (cm^3) 0.707 cm^3 0 cm^3 Wound Healing % -- 100 Drainage Description Serosanguineous -- Drainage Amount Moderate -- Treatments Cleansed Cleansed Dressing -- Foam Dressing Status -- Removed Wound Bed Granulation (%) 100 % 0 % Wound Bed Epithelialization (%) 0 % 100 % Wound Bed Slough (%) 0 % 0 % Wound Bed Eschar (%) 0 % 0 % Tunneling 0 cm 0 cm Undermining 0 cm 0 cm Edges Attached edges;Well-defined edges Attached edges;Well-defined edges Non-staged Wound Description Full thickness -- Active Orders Date Order Priority Status Authorizing Provider 08/29/25 0904 Wound Care Supplies Routine Active Imelda Delatorre MD - Wound Care Supplies: Normal saline for irrigation (sterile) - 500ml (4x4 Zetuvit foam with border) - Wound Care Supplies: Other - Days Supply:: 30 - Debridement Performed:: Yes - Wound Drainage:: Moderate - Dispense As Written (DORENE)?: Yes - Frequency of Dressing Change: Daily - Further DME Specification:: see all supplies in comment box - Face to face evaluation was performed on: 08/29/2025 - Additional providers who completed a face to face evaluation of the patient:: IMELDA DELATORRE Inactive Orders Date Order Priority Status Authorizing Provider 08/29/25 0905 Debridement Skin Tear Left;Posterior Elbow Routine Completed Imelda Delatorre MD Wound Skin Tear 09/12/25 Arm Left;Posterior;Lower (Active) Date First Assessed/Time First Assessed: 09/12/25 0852 Primary Wound Type: Skin Tear Wound Approximate Age at First Assessment (Weeks): 1 weeks Location: Arm Wound Location Orientation: Left;Posterior;Lower Assessments 09/12/2025 8:52 AM 10/03/2025 9:00 AM Wound Image Wound Bed Tissue Assessment Granulation Epithelialization Daiana-Wound Assessment Intact Scarred Shape Irregular -- Wound Length (cm) 2.5 cm 0 cm Wound Width (cm) 2.6 cm 0 cm Wound Surface Area (cm^2) 5.11 cm^2 0 cm^2 Wound Depth (cm) 0.1 cm 0 cm Wound Volume (cm^3) 0.34 cm^3 0 cm^3 Wound Healing % -- 100 Drainage Description Serosanguineous -- Drainage Amount Moderate -- Treatments Cleansed Cleansed Dressing Foam Foam Dressing Status Removed Removed Wound Bed Granulation (%) 100 % 0 % Wound Bed Epithelialization (%) 0 % 1000 % Wound Bed Slough (%) 0 % 0 % Wound Bed Eschar (%) 0 % 0 % Tunneling 0 cm 0 cm Undermining 0 cm 0 cm Edges Attached edges;Well-defined edges Attached edges;Well-defined edges No associated orders. Wound Skin Tear 10/03/25 Arm Lower;Posterior;Proximal;Right (Active) Date First Assessed/Time First Assessed: 10/03/25 0857 Primary Wound Type: Skin Tear Wound Approximate Age at First Assessment (Weeks): 1 weeks Hand Hygiene Completed: Yes Location: Arm Wound Location Orientation: Lower;Posterior;Proximal;Right Assessments 10/03/2025 8:58 AM Wound Image Wound Bed Tissue Assessment Granulation Daiana-Wound Assessment Scarred Wound Length (cm) 6 cm Wound Width (cm) 1.3 cm Wound Surface Area (cm^2) 6.13 cm^2 Wound Depth (cm) 0.1 cm Wound Volume (cm^3) 0.408 cm^3 Drainage Description Serosanguineous Drainage Amount Small Treatments Cleansed Wound Bed Granulation (%) 100 % Wound Bed Epithelialization (%) 0 % Wound Bed Slough (%) 0 % Wound Bed Eschar (%) 0 % Tunneling 0 cm Undermining 0 cm Edges Attached edges Non-staged Wound Description Partial thickness No associated orders. Pertinent Labs: Albumin Date Value Ref Range Status 07/06/2025 3.8 3.2 - 5.0 g/dL Final 07/06/2025 3.9 3.2 - 5.0 g/dL Final WBC Date Value Ref Range Status 07/06/2025 6.8 4.8 - 10.8 K/mcL Final PROVIDER ORDERS Patient Instructions PROVIDER ORDERS Go to ER if you are presenting with fever, chills, increased redness, pain, swelling, warmth aroundwound area and/or foul smelling odor. If you have any questions or concerns, please contact the [facility] at . Follow up(s)/ Referrals: N/A Long-Term: N/A Additional Orders: N/A Lidocaine Orders: Apply Lidocaine 5% Topical Ointment prior to debridements at Wound Care appointments Edema Control: (If your compression wrap(s) feel to tight, please elevate your leg(s) about heart level. If your wrap(s) are becoming painful and/or you loose sensation of toes/ are having toe discoloration (a change from your baseline), please remove / unwrap compression and notify [facility] at . ) N/A Offloading: N/A Negative Pressure Wound Therapy: (If wound vac is off/non functioning for more than 2 hours, please remove vac dressing, apply a wetto dry dressing and notify your home care agency) N/A Cellular/Tissue Based Products: N/A Bathing / Showering / Hygiene: May shower without wound dressing. Non-wound Condition/ Other Skin Care: N/A Wound Location(s): Wound #1 (Left Elbow): -Wound is healed Wound #2 (Left posterior lower arm): -Wound is healed Wound #3 (Right forearm): Cleanser: Cleanse with Normal Saline Periwound: N/A Topical: Mupirocin 2% ointment- Apply a thin layer to wound bed Primary dressing: N/A Secondary dressinx4 woven gauze (non-sterile) Secure with: 2 conforming gauze roll, Spandage size 3, 1 paper tape Compression Therapy: N/A Dressing Change Frequency: Daily 10/03/2025 9:56 AM EST Imelda Delatorre MD * Chiquita Redding RN - 10/03/2025 9:00 AM EST Discharge Patient directed to check out at hotel front office manager and collect visit summary with wound care directions and book follow up as directed. Dressings applied: Wound #3 (Right forearm): Cleanser: Cleansed with Normal Saline Topical: Mupirocin 2% ointment- Apply a thin layer to wound bed Secondary dressinx4 woven gauze (non-sterile) Secured with: 2 conforming gauze roll, Spandage size 3, 1 paper tape Dressing technique was demonstrated and explained. Patient questions answered. Pt departed from wound care center without issue or incidence. documented in this encounter Plan of Treatment Upcoming Encounters Date Type Department Care Team (Late st Contact Info) Description 10/17/2025 9:00 AM EST Clinical Support [facility] [address] [place] [phone] 11/30/2025 9:00 AM EST Office Visit Adult [address] [phone] Adalberto Zepeda PA [address] [place] [phone] 06/01/2026 9:15 AM EDT Office Visit [facility] [address] [place] [phone] Katja Lainez MD [address] [place] [phone] documented as of this encounter Goals Goal [...] omised skin integrity. No Kusum Messina RN Decrease Wound Volume by X% by date (in notes) Care Plan Impaired Tissue On track( 025 9:15 AM EST) Esha Velarde RN Patient and Caregiver Understand Wound Care Education Care Plan Impaired Tissue On track( 025 9:15 AM EST) Esha Velarde RN Wound volume breakdown reduced by X% by week 4 Care Plan Impaired Tissue No Esha Zamudio RN Wound volume breakdown reduced by X% by week 8 Care Plan Impaired Tissue No Esha Zamudio RN Wound volume breakdown reduced by X% by week 12 Care Plan Impaired Tissue Esha Velarde RN Quit using tobacco (cigarettes, smokeless, etc) Care Plan Education needed on impact of smoking on wound Esha Velarde RN Reduce tobacco use (cigarettes, smokeless, etc) Care Plan Education needed on impact of smoking on wound No Esha Zamudio RN Decrease Wound Volume by X% by date (in notes) Care Plan Education needed on impact of smoking on wound No Wurszt, Esha E, RN Patient and Caregiver Understand Wound Care Education Care Plan Education needed related to ulceration/compr omised skin integrity. 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 09/02/2024 Impaired Tissue 08/29/2025 Education needed on impact of smoking on wound 1 10/29/2024 Education needed related to ulceration/compromised skin integrity. 08/29/2025 Assessment Noted Time PHQ-9 Depression Total Score: 6 07/26/20 25 8:22 AM EDT A fall risk assessment has been complete d for the patient 12/27/2024 12:31 PM EDT documented as of this encounter Care Teams Manager Leadership Development Relationship Specialty Start Date End Date Adalberto Zepeda PA [address] [place] [phone] PCP - General Internal Medicine 08/18/24 documented as of this encounter
--- OUTSIDE RECORDS SUMMARY | 2025-10-07 08:35 | XMS_ITS | Patient Health Record ---
Author Organization [facility] Address [address] [facility] [address] [place] [address] Care Team Providers Care Front Desk Team Member Name Role Phone Raman WARE, Vandana Primary [...] Pathology Reviewed date:01/22/2025 03:35:39 PM Interpretation: Performing Lab:[facility], [address] [place] [address] Notes/Report: Reason For Referral Referring Provider First Name Vandana Referring Provider Last Name Raman Referred Organization [facility] Referred Provider Eugene Iyer Jr Referred Address [address] [place] [address],[place] Referred Provider Specialty Gastroentero logy Referral Priority Routine Referring Provider First Name Vandana Referring Provider Last Name Raman Referred Organization [facility] Referred Provider Eugene Iyer Jr Referred Address [address] [place] [address],[place] Referred Provider Specialty Gastroentero logy General Notes [...] Problem Long-term current use of antiplatelet drug (770130152072346) Long-term use of aspirin therapy (Z79.82) Active confirmed Problem Dysphagia (12569806) Dysphagia, unspecified type (R13.10) Active confirmed Problem Gastroesophageal reflux disease (080788890) Gastroesophageal reflux disease, unspecified whether esophagitis present (K21.9) Active confirmed Vital Signs Temperature 98.0 degrees Fahrenheit 04/13/2025 Blood pressure diastolic 01 mm Hg 04/13/2025 Height 70 in 04/13/2025 Blood pressure systolic 001 mm Hg 04/13/2025 Weight 166.4 lbs 04/13/2025 BMI 23.87 kg/m2 04/13/2025 Encounters Encounter Location Date Provider Diagnosis [facility] [address] [place] [id number] 01/14/2025 Eugene Iyer Jr Dysphagia R13.10 [facility] [address] [place] [address] 12/01/2024 Eugene Iyer Jr Dysphagia, unspecified type R13.10 ; Long-term use of aspirin therapy Z79.82 and Gastroesophageal reflux disease, unspecified whether esophagitis present K21.9 [facility] [address] [place] [address] 04/13/2025 Eugene Iyer Jr Gastroesophageal reflux disease, unspecified whether esophagitis present K21.9 and Dysphagia, unspecified type R13.10 [facility] [address] [place] [address] 01/14/2025 Eugene Iyer Jr [facility] [address] [place] [address] 01/22/2025 Eugene Iyer Jr [facility] [address] [place] [address] 04/20/2025 Eugene Iyer Jr Assessments Encounter Date [...] MBS this will be arranged through the [place] where his prior testing has been done. Some of his dysphagia may be related to his underlying Parkinson's disease and we discussed this today. [place] records will be obtained and reviewed. Follow-up [...] MBS this will be arranged through the [place] where his prior testing has been done. Some of his dysphagia may be related to his underlying Parkinson's disease and we discussed this today. [place] records will be obtained and reviewed. Follow-up will be pending these results. Today's visit was 30 minutes. Plan Of Treatment Future Test Test Name Order Date UPPER GI ENDOSCOPY 12/01/2024 Next Appt Details Provider Name:Eugene domingo , 04/17/2026 09:40:00 AM, [address] [place] [address], [address], [place], [address], Insurance Providers Payer Name Payer Address Payer Phone Subscriber Number Group Number Insured Name Patient Relationship to Insured Coverage Start Date Coverage End Date [facility] [employer] [address] [place] [address] [id number] KOFI STANLEY Self - patient is the [...] Surgical History Surgery Date(Month/Year) Tonsillectomy colonoscopy 2019, [place] [facility] for nephrolithiasis
--- OUTSIDE RECORDS SUMMARY | 2025-10-07 08:35 | XMS_ITS | Continuity of Care Document ---
Author Organization [place] [facility] Steph Meyer AONE [place] Address [address] [facility] [address] [place] [address] Care Team Providers Care Cash Management Coordinator Name Role Phone JENNIFER ESPOSITO Referring Provider JENNIFER Palacios Primary Care Provider Assessment Encounter Date Assessment Date Assessment LastModified by Organization Details LastModified Time 09/06/2025 09/06/2025 IMPRESSION: 79-year-old [id number] nt man with left shoulder cuff tear [...] more view 2024 025 [email or web address] [facility], [address], [address], [place], [address], 09/10/2025 11:58:28 Medication Orders lidocaine (PF) 10 mg/mL (1 %) injection solution 2024 025 [email or web address] Not available 09/07/2025 14:26:41 Marcaine (PF) 0.5 % (5 mg/mL) injection solution 2024 025 [email or web address] Not available 09/07/2025 14:26:41 triamcino lone acetonide 40 mg/mL suspensio n for injection 2024 025 [email or web address] Not available 09/07/2025 14:26:41 Patient TargetsNo targets recorded. 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 51176167 Active 2023 Leidy frost MD [address], [place], [address], [place] [facility], P 4 13:08:36 Arthritis of left glenohumera l joint 2911682732595 100 Active 2023 Leidy frost MD [address], [place], [address], [place] [facility], P 4 11:54:47 Triggering of digit 102390248 Active 2023 Leidy frost MD [address], [place], [address], [place] [facility], P 4 11:56:43 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 Procedures Surgical History Date Name Laterality Status Provider Name and Address Organization Details Recorded Time 09/06/20 AJR Shoulder GH Inj completed Edwardo Salazar MD [address], [place], [address], [place] [facility] 09/06/2025 09:32:37 06/07/20 AJR Shoulder GH Inj completed Edwardo Salazar MD [address], [place], [address], [place] [facility] 06/07/2025 09:44:41 02/23/20 25 AJR Shoulder GH Inj completed Edwardo Salazar MD [address], [place], [address], [place] [facility] 02/22/2025 09:19:33 11/23/19 25 AJR Shoulder GH Inj completed Edwardo Salazar MD [address], [place], [address], [place] [facility], [facility] 11/23/2024 09:36:38 10/21/19 25 LES finger joint injection completed Leidy Langford MD [address], [place], [address], [place] [facility] 10/21/2024 09:05:14 08/12/20 24 LES finger joint injection completed Leidy Langford MD [address], [place], [address], [place] [facility] 08/12/2024 09:33:13 08/12/20 24 LES Subacromial Shoulder Inj completed Leidy Langford MD [address], [place], [address], [place] [facility], [facility] 08/12/2024 09:32:56 05/13/20 24 LES Subacromial Shoulder Inj completed Leidy Langford MD [address], [place], [address], [place] [facility], [facility] 05/13/2024 11:53:24 04/01/20 24 LES trigger finger/De Quervain's injection completed Leidy Langford MD [address], [place], [address], [place] [facility] 04/01/2024 11:47:54 02/26/20 24 LES finger joint injection completed Leidy Langford MD [address], [place], [address], [place] [facility] 02/26/2024 13:10:34 Imaging Results None recorded. Procedure Notes None recorded. Medical Equipment None Reported. Allergies Allergen ID Allergen Name Allergen Category Reaction Reaction Severity Criticality Documentation Date Start Date Code Code System Note Provider Name and Address Organization Details Recorded Time 705988 minocycli ne hydrochlo ride medicatio n Not available Not available Not available 09/05/20252017 6979 RxNorm Not Available [facility] External Data Service - prod 5 10:57:05 099288 polymyxin B sulfate medicatio n Not available Not available Not available 09/05/20252018 388 RxNorm Not Available [facility] External Data Service - prod 5 10:57:05 573992 acetamino phen / oxycodone medicatio n Not available Not available via [facility] 09/05/2025 50150 3 RxNorm Not Available [facility] External Data Service - prod 5 10:57:15 902265 polymyxin B medicatio n rash Not available [facility] 09/05/20252018 8536 RxNorm Not Available [facility] External Data Service - prod 5 10:58:09 15627 acetamino phen / oxycodone medicatio n Not available Not available Not available 02/26/2024 47658 3 RxNorm Cassidy Duggan null, [place] [facility], P 4 09:31:06 71759 oxycodone medicatio n Not available Not available Not available 02/26/2024 7804 RxNorm Cassidy Duggan null, [place] [facility], P 4 09:31:25 44790 amoxicill in medicatio n Not available Not available Not available 02/26/2024 723 RxNorm Cassidy Duggan null, [place] [facility], P 4 09:31:33 58524 erythromy leisa medicatio n Not available Not available Not available 02/26/2024 4053 RxNorm Cassidy Duggan null, [place] [facility], P 4 09:31:43 08381 minocycli ne medicatio n Not available Not available Not available 04/01/2024 6980 RxNorm Cassidy Duggan null, [place] [facility], P 4 11:19:40 06363 sertralin e medicatio n Not available Not available Not available 04/01/2024 28706 RxNorm Cassidy Duggan null, [place] [facility], P 4 11:19:48 Medications Name Sig Start [...] use any illicit or recreational drugs? No [email or web address] Information not available 02/26/2024 Do you or have you ever used any other forms of tobacco or nicotine? No [email or web address] Information not available 02/26/2024 What is your level of alcohol consumption? None [email or web address] Information not available 02/26/2024 Mental Status None [...] Anemia N Brain Injury N Heart Attack (AR) N Osteopenia N Diabetes N Bleeding Disorder [...] ICD10 Code Diagnosis IMO Codes Diagnosis Note [id number] MD BLANCO Siddiqui [address] [place] [address] 09/06/2025 08:43:59 09/06/2025 09:24:46 Arthritis of left glenohumeral joint [id number] 382801 M19.012 Health Concerns Section Related Observation LastModified by Organization Detai ls LastModified Time None Recorded Concern Status LastModified by Organization Details LastModified Time None Recorded Payers Encounter Date Sequence Insurance Name Policy Number Policy Carrillo Covered Member ID Carrillo Member ID Guarantor Name 09/06/2025 1 [facility]: MEDICARE PPO BLUE (MEDICARE REPLACEMENT PPO) [id number] Caleb Lai Mauricio [id number] Caleb Martínez Notes Date Note Type [...] the hospital that his home. PRIOR [place] [id number]-year-old [id number] man with left shoulder pain for years. 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 Edwardo Salazar MD [address] [place] [address], [address], [place] [facility] 09/06/2025 09:35:38
--- OUTSIDE RECORDS SUMMARY | 2025-10-07 08:35 | XMS_ITS ---
Author Organization [facility] Address [address] [place] [address] Phone Care Team Providers Care Highway Safety Engineer Name Role Phone Adalberto Zepeda Primary Care Provider [phone] Active Problems Problem Noted Date Diagnosed Date [...]
--- OUTSIDE RECORDS SUMMARY | 2025-10-07 08:35 | XMS_ITS | Clinical Summary ---
Author Organization [facility] Prior to 03/19/25 Address [address] [place] [address] Care Team Providers Care Manager Animation Name Role Phone Adalberto Zepeda PA-C Primary [...] age to complete this topic Care Teams Manager Animation Relationship Specialty Start Date End Date Adalberto Zepeda, PAAndreeaC PCP - General Medical Services 08/15/21
--- OUTSIDE RECORDS SUMMARY | 2025-10-07 08:35 | XMS_ITS | Encounter Summary ---
Author Organization [facility] Address [address] [place] [address] Care Team Providers Care Bus Mechanic Name Role Phone Adalberto Zepeda Primary Care Provider [phone] Encounter Details Date Type Department Care Team (Late st Contact Info) Description 10/05/2025 Results Follow-Up Adult [address] [id number] Adalberto Zepeda PA [address] [place] [address] Social History Tobacco Use Types Packs/Day Years [...] your loved ones. For example, child care provider or elderly care for an older adult? [...] Description 10/17/2025 9:00 AM EST Clinical Support [facility] [address] [place] [address] 11/30/2025 9:00 AM EST Office Visit Adult [address] [address] Adalberto Zepeda PA [address] [place] [address] 06/01/2026 9:15 AM EDT Office Visit [facility] Hematology Oncology [address] [place] [address] Katja Lainez MD [address] [place] [address] documented as of this encounter [...] week 12 Care Plan Impaired Tissue No Esha Zamudio RN Quit using tobacco (cigarettes, smokeless, etc) Care Plan Education needed on impact of smoking on wound No Esha Zamudio RN Reduce tobacco use (cigarettes, smokeless, etc) Care Plan Education needed on impact of smoking on wound No Esha Zamudio RN Decrease Wound Volume by X% by date (in notes) Care Plan Education needed on impact of smoking on wound No Esha Zamudio RN Patient and Caregiver Understand Wound Care [...] documented as of this encounter Care Teams Bus Mechanic Relationship Specialty Start Date End Date Adalberto Zepeda PA [address] [place] [address] PCP - General Internal Medicine 08/18/24 documented as of this encounter
--- OUTSIDE RECORDS SUMMARY | 2025-10-07 08:36 | XMS_ITS | Data Portability ---
Author Organization [place] [facility] Steph Meyer [place] Address [address] [facility] [address] [place] [address] Care Team Providers Care Fryline Attendant Name Role Phone JENNIFER ESPOSITO Referring Provider [...] available 10/21/2024 09:07:28 11/23/2024 11/23/2024 IMPRESSION: 79-year-old mldbs-jeou-gizove nt man with left shoulder glenohumeral arthritis [...] available 11/23/2024 09:41:22 02/22/2025 02/22/2025 IMPRESSION: 79-year-old btzjk-cimn-zkadij nt man with left shoulder glenohumeral arthritis [...] available 02/22/2025 09:20:52 06/07/2025 06/07/2025 IMPRESSION: 79-year-old nnwmv-hnsy-zimuzf nt man with left shoulder glenohumeral arthritis [...] available 06/07/2025 10:02:29 09/06/2025 09/06/2025 IMPRESSION: 79-year-old wyikw-urvv-hrrsnm nt man with left shoulder cuff tear [...] more view 2024 025 [email or web address] [facility], [address], [address], [place], [address], 09/10/2025 11:58:28 Medication Orders lidocaine (PF) 10 mg/mL (1 %) injection solution 2024 025 Not available 09/07/2025 14:26:41 Marcaine (PF) 0.5 % (5 mg/mL) injection solution 2024 025 [email or web address] Not available 09/07/2025 14:26:41 triamcino lone acetonide 40 mg/mL suspensio n for injection 2024 025 [email or web address] Not available 09/07/2025 14:26:41 lidocaine (PF) 10 mg/mL (1 %) injection solution 2024 025 [email or web address] Not available 06/10/2025 16:36:05 Marcaine (PF) 0.5 % (5 mg/mL) injection solution 2024 025 Not available 06/10/2025 16:36:05 triamcino lone acetonide 40 mg/mL suspensio n for injection 2024 025 [email or web address] Not available 06/10/2025 16:36:05 lidocaine (PF) 10 mg/mL (1 %) injection solution 2024 025 [email or web address] Not available 02/23/2025 09:45:00 Marcaine (PF) 0.5 % (5 mg/mL) injection solution 2024 025 [email or web address] Not available 02/23/2025 09:45:00 triamcino lone acetonide 40 mg/mL suspensio n for injection 2024 025 [email or web address] Not available 02/23/2025 09:45:00 lidocaine (PF) 10 mg/mL (1 %) injection solution 2024 025 [email or web address] Not available 11/23/2024 15:38:24 Marcaine (PF) 0.5 % (5 mg/mL) injection solution 2024 025 Not available 11/23/2024 15:38:24 triamcino lone acetonide 40 mg/mL suspensio n for injection 2024 025 [email or web address] Not available 11/23/2024 15:38:24 lidocaine (PF) 10 mg/mL (1 %) injection solution 2024 025 [email or web address] [id number], [address] [facility] [place], [address], 10/21/2024 13:13:53 triamcino lone acetonide 40 mg/mL suspensio n for injection 2024 025 [email or web address] [email or web address] [id number], [address] [facility] [place], [address], 10/21/2024 13:13:53 diclofena c 1 % topical gel 2024 025 JUSTO [id number], [address] [facility] [place], [address], 10/21/2024 09:08:00 Patient TargetsNo targets recorded. Patient Instructions Encounter Date Encounter Id Patient Instructions Last Modified By Organization Details Last Modified Time 10/21/2024 [id number] You have been provided with a cortisone [...] portal TAMIE. 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 01269369 Active 2023 Leidy frost MD [address], [place], [address], [place] [facility] 4 13:08:36 Arthritis of left glenohumera l joint 6824432070241 100 Active 2023 Leidy frost MD [address], [place], [address], [place] [facility], 4 11:54:47 Triggering of digit 569531264 Active 2023 Leidy frost MD [address], [place], [address], [place] [facility] 4 11:56:43 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 Procedures Surgical History Date Name Laterality Status Provider Name and Address Organization Details Recorded Time 09/06/20 25 AJR Shoulder GH Inj completed Edwardo Salazar MD [address], [place], [address], [place] [facility] 09/06/2025 09:32:37 06/07/20 25 AJR Shoulder GH Inj completed Edwardo Salazar MD [address] [facility], [place], [address], [place] [facility] 06/07/2025 09:44:41 02/23/20 25 AJR Shoulder GH Inj completed Edwardo Salazar MD [address] [facility], [place], [address], [place] [facility] 02/22/2025 09:19:33 11/23/19 25 AJR Shoulder GH Inj completed Edwardo Salazar MD [address], [place], [address], [place] [facility] 11/23/2024 09:36:38 10/21/19 25 LES finger joint injection completed Leidy Langford MD [address], [place], [address], [place] [facility] 10/21/2024 09:05:14 08/12/20 24 LES finger joint injection completed Leidy Langford MD [address], [place], [address], [place] [facility] 08/12/2024 09:33:13 08/12/20 24 LES Subacromial Shoulder Inj completed Leidy Langford MD [address] [facility],[address], [place], [address], [place] [facility] 08/12/2024 09:32:56 05/13/20 24 LES Subacromial Shoulder Inj completed Leidy Langford MD [address] [facility],[address], [place], [address], [place] [facility] 05/13/2024 11:53:24 04/01/20 24 LES trigger finger/De Quervain's injection completed Leidy Langford MD [address] [facility],[place] [address], [place], [address], [place] [facility] 04/01/2024 11:47:54 02/26/20 24 LES finger joint injection completed Leidy Langford MD [address] [facility],[place] [address], [place], [address], [place] [facility] 02/26/2024 13:10:34 Imaging Results None recorded. Procedure Notes None recorded. Medical Equipment None Reported. Allergies Allergen ID Allergen Name Allergen Category Reaction Reaction Severity Criticality Documentation Date Start Date Code Code System Note Provider Name and Address Organization Details Recorded Time 138395 minocycli ne hydrochlo ride medicatio n Not available Not available Not available 09/05/20252017 6979 RxNorm Not Available Must See [employer] - prod 5 10:57:05 940515 polymyxin B sulfate medicatio n Not available Not available Not available 09/05/20252018 388 RxNorm Not Available Must See [employer] - prod 5 10:57:05 140393 acetamino phen / oxycodone medicatio n Not available Not available unabletoasse 09/05/2025 32543 3 RxNorm Not Available Must See [employer] - prod 5 10:57:15 717102 polymyxin B medicatio n rash Not available high 09/05/20252018 8536 RxNorm Not Available [email or web address] - [employer] - prod 5 10:58:09 41175 acetamino phen / oxycodone medicatio n Not available Not available Not available 02/26/2024 40760 3 RxNorm Cassidy Duggan null, [place] [facility] 4 09:31:06 59231 oxycodone medicatio n Not available Not available Not available 02/26/2024 7804 RxNorm Cassidy Duggan null, [place] [facility] 4 09:31:25 98326 amoxicill in medicatio n Not available Not available Not available 02/26/2024 723 RxNorm Cassidy Duggan null, [place] [facility] 4 09:31:33 00025 erythromy leisa medicatio n Not available Not available Not available 02/26/2024 4053 RxNorm Cassidy Duggan null, [place] [facility] 4 09:31:43 24143 minocycli ne medicatio n Not available Not available Not available 04/01/2024 6980 RxNorm Cassidy Duggan null, [place] [facility] 4 11:19:40 51502 sertralin e medicatio n Not available Not available Not available 04/01/2024 98901 RxNorm Cassidy Duggan null, [place] [facility] 4 11:19:48 Medications Name Sig Start [...] Updated DateTime 10/21/2024 177.8 cm 22 kg/m2 96305.[address] [place] [facility], 10/21/2024 08:55:09 Social History None recorded. Functional Status Question Answer Note LastModified by Organizat ion Details LastModified Time Do you use any illicit or recreational drugs? No [email or web address] Information not available 02/26/2024 Do you or have you ever used any other forms of tobacco or nicotine? No [email or web address] Information not available 02/26/2024 What is your level of alcohol consumption? None [email or web address] Information not available 02/26/2024 Mental Status None [...] Anemia N Brain Injury N Heart Attack ([place]) N Osteopenia N Diabetes N Bleeding Disorder [...] ICD10 Code Diagnosis IMO Codes Diagnosis Note [id number] [facility] [address] [facility] [address] [place] [address] 02/26/2024 09:18:47 02/26/2024 10:20:59 Pain of left wrist 9434395071 84122 M25.532 Additional diagnosis detail: Left wrist pain Closed fra cture of distal end of radius 48051534 S52.572A Additional diagnosis detail: Other closed intra-venkata cular fracture of distal end of left radius, initial encounter Osteoarthr osis of the carpometacarpal joint of the thumb 98090961 M18.12 Additional diagnosis detail: Primary osteoarthr itis of first carpometac arpal joint of left hand [id number] MD BLANCO George [facility] [address] [address] 04/01/2024 11:09:01 04/01/2024 11:44:29 Closed fracture of distal end of radius 19329747 S52.572A Additional diagnosis detail: Other closed intra-venkata cular fracture of distal end of left radius, initial encounter Osteoarthr osis of the carpometacarpal joint of the thumb 72337293 M18.12 Additional diagnosis detail: Primary osteoarthr itis of first carpometac arpal joint of left hand Triggering of digit 2399 64361 M65.332 Additional diagnosis detail: Trigger middle finger of left hand, trigger ring finger of left hand [id number] MD [facility] [address] [address] 05/13/2024 10:26:20 05/13/2024 11:10:39 Closed fracture of distal end of radius 45919270 S52.572A Additional diagnosis detail: Other closed intra-venkata cular fracture of distal end of left radius, initial encounter Osteoarthr osis of the carpometacarpal joint of the thumb 24783521 M18.12 Additional diagnosis detail: Primary osteoarthr itis of first carpometac arpal joint of left hand Chronic pa in of left upper limb 2641814091 3958535 M25.512 G89.29 Additional diagnosis detail: Chronic left shoulder pain Pain of le ft shoulder joint 4971692495 3209809 M25.512 Additional diagnosis detail: Pain, joint, shoulder, left Arthritis of left glenohumeral joint 2912207220 247373 M19.012 Triggering of digit 2399 20720 M65.342 M65.332 Additional diagnosis detail: Trigger finger, left ring fingerAddi tional diagnosis detail: Trigger finger, left middle finger [id number] MD BLANCO George [address] [place] [address] 08/12/2024 08:16:17 08/12/2024 08:54:36 Arthritis of left glenohumeral joint 3237836659 520696 M19.012 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 7906557029 203090 M18.12 58882482 [id number] MD BLANCO George [address] [place] [address] 10/21/2024 08:09:50 10/21/2024 09:19:40 Osteoarthrosis of the carpometacarpal joint of the thumb 97675948 M18.12 Additional diagnosis detail: Primary osteoarthr itis of first carpometac arpal joint of left hand 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 0131069509 877813 M18.11 64081299 Osteoarthr itis of finger joint of right hand 3616034678 8899939 M15.3 0252205648 [id number] MD BLANCO Siddiqui [address] [place] [address] 11/23/2024 08:34:37 11/23/2024 09:36:16 Arthritis of left glenohumeral joint 9275505879 919600 M19.012 [id number] [facility] [address] [place] [address] 02/22/2025 08:42:05 02/22/2025 09:22:39 Arthritis of left glenohumeral joint 1105703676 898339 M19.012 [id number] MD BLANCO Siddiqui [facility] [address] [facility] [address] [place] [address] 06/07/2025 09:34:43 06/07/2025 10:04:05 Arthritis of left glenohumeral joint 7758214793 656743 M19.012 [id number] MD BLANCO Siddiqui [facility] [address] [facility] [address] [facility] [place] [address] 09/06/2025 08:43:59 09/06/2025 09:24:46 Arthritis of left glenohumeral joint 2037101521 910759 M19.012 Health Concerns Section Related Observation LastModified by Organization Detai ls LastModified Time None Recorded Concern Status LastModified by Organization Details LastModified Time None Recorded Advance Directives Directive None Recorded Payers Insurance Date Sequence Insurance Name Policy Number Policy Carrillo Covered Member ID Carrillo Member ID Guarantor Name 09/03/2025 1 [facility]: [place]ICARE [place] BLUE (MEDICARE REPLACEMENT PPO) [id number] Caleb Martínez [id number] Caleb Martínez Notes Date Note Type [...] helpful. 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 He does have pain in his left shoulder for which I gave him a cortisone injection on 08/12/2024 for glenohumeral joint arthritis. Leidy Langford MD [address] [facility] [address], [place], [address], [place] [facility] 10/21/2024 09:51:15 11/23/2024 text/html ROS as noted in the HPI 79-year-old slyhn-yjld-glsadhob man with left shoulder pain for years. 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 Edwardo Salazar MD [address] [facility] [address], [place], [address], [place] [facility] 11/23/2024 09:41:56 02/22/2025 text/html ROS as noted in the HPI Caleb returns to the office today. He had 10 weeks of relief from this injection. He recently started Enbrel for his rheumatoid arthritis which he is unsure if it is helping. His daughter has returned from the hospital that his home. PRIOR AR 0-1-7332-year-old bjaps-pqia-upxmlqja man with left shoulder pain for years. 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 Edwardo Salazar MD [address] [facility] [address], [place], [address], [facility] P 02/22/2025 09:21:17 06/07/2025 text/html ROS as [...] the hospital that his home. PRIOR AR 6-9-0344-year-old mtbzw-lytx-lthybfgc man with left shoulder pain for years. 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 Edwardo Salazar MD [address] [place] [address], [address], [place] [facility] 06/07/2025 10:02:52 09/06/2025 text/html ROS as [...] the hospital that his home. PRIOR AR 1-4-3169-year-old hutyg-pdgw-xeafppyl man with left shoulder pain for years. 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 Edwardo Salazar MD [address] [place] [address], [place], [address], [place] [facility] 09/06/2025 09:35:38
--- OUTSIDE RECORDS SUMMARY | 2025-10-07 08:36 | XMS_ITS | Clinical Summary ---
Author Organization [facility] Address [address] [place] [address] Phone Care Team Providers Care Equal Opportunity Officer Name Role Phone Adalberto Zepeda Primary Care Provider [phone] [phone] Allergies Active Allergy Reactions Criticality Noted Date [...] 6 (six) times a day. 0 Active entacapone (COMTAN) 200 mg tablet Take 1 tablet (200 mg total) by mouth 6 (six) times a day. 2 Active ketoconazole (NIZORAL) 2 % cream Apply 1 Application topically 2 (two) times a day. Active lidocaine 0.5% (SOLARCAINE) 0.5 % gel external gel Apply 5 g topically 2 times daily as needed. 1 Active LORazepam (ATIVAN) 0.5 mg tablet Take 1 tablet (0.5 mg total) by mouth 1 (one) time each day. 2 Active methotrexate 2.5 mg tablet Take 6 [...] 1 (one) time each day. 2 Active meloxicam, bulk, 100 % powder Take [...] (2 mg total) by mouth. 9 Active leucovorin 10 mg tablet TAKE 1 TABLET BY MOUTH EVERY WEEK. TAKE THE DAY AFTER YOU TAKE METHOTREXATE 4 Active amLODIPine (NORVASC) 5 mg tablet Take 1 tablet (5 mg total) by mouth 1 (one) time each day. 90 tablet 3 5 Active atorvastatin (LIPITOR) 20 mg tablet TAKE 1 TABLET DAILY 90 tablet 3 5 Active lisinopril (PRINIVIL,ZEST RIL) 40 mg tablet TAKE 1 TABLET DAILY 90 tablet 3 5 Active baclofen (LIORESAL) 10 mg tablet Take 1 tablet (10 mg total) by mouth at bedtime. From neuro Active omeprazole (PriLOSEC) [address] capsule TAKE 1 CAPSULE TWICE DAILY 180 capsule 1 5 Active mupirocin (BACTROBAN) 2 % ointmentIndica tions:Skin tear of left lower leg without complication, initial encounter,Skin tear of left elbow without complication, initial encounter,Skin tear of left upper arm without complication, initial encounter,Open wound of left shoulder, initial encounter Apply topically 1 (one) time each day. Apply to wounds daily 30 g 1 5 10/03/20 25 Active Problems Problem Noted Date Diagnosed Date [...] Encounters Date Type Department Care Team Description 10/05/2025 Results Follow-Up Adult Medicine [address] [phone] Adalberto Zepeda PA 10/03/2025 9:00 AM EST Office Visit [facility] [address] [place] [address] Imelda Delatorre MD Skin tear of left [...] forearm with fat layer exposed 09/28/2025 Telephone [facility] [address] [place] [phone] Kusum Messina RN 09/21/2025 8:58 AM EST - 09/21/2025 11:59 PM EST Hospital Encounter Radiology Department - [address] [phone] Liver lesion, right lobe Discharge Disposition: Home or Self Care 09/19/2025 1:45 PM EST Office Visit [facility] [address] [place] [phone] Imelda Delatorre MD Skin tear of left lower leg without complication, subsequent encounter (Primary Dx); Non-pressure chronic ulcer of other part of left lower leg limited to breakdown of skin (CMS/HCC V24, CMS/[facility] V28); Skin tear of left upper arm [...] skin 09/12/2025 8:45 AM EST Office Visit [facility] [address] [place] [phone] Imelda Delatorre MD Skin tear of left [...] breakdown of skin 09/12/2025 Telephone Adult Medicine [address] [phone] Perry Kate LPN 09/08/[address] [phone] Perry Kate, DITCH TENDER 08/29/2025 10:00 AM EST Office Visit [address] [phone] Adalberto Zepeda, PA Fall, subsequent encounter (Primary Dx); Benign prostatic hyperplasia without lower urinary tract symptoms; Essential tremor; Parkinson's disease without dyskinesia, unspecified whether manifestations fluctuate (CMS/HCC V24, CMS/HCC V28); Essential (primary) hypertension; Anxiety; Multiple wounds; Acute pain of left shoulder 08/29/2025 8:00 AM EST Consult [facility] [address] [place] [phone] Imelda Delatorre MD Skin tear of left lower leg without complication, initial encounter (Primary Dx); Skin tear of left elbow without complication, initial encounter; Skin tear of left upper arm without complication, initial encounter; Open wound of left shoulder, initial encounter 08/26/2025 2:01 PM EST - 08/26/2025 11:59 PM EST Hospital Encounter Radiology Department - [address] [phone] Scrotal abscess Discharge Disposition: Home or Self Care 08/24/2025 Results Follow-Up Adult [address] [phone] Adalberto Zepeda PA 08/23/2025 9:41 AM EST - 08/23/2025 11:59 PM EST Hospital Encounter CT Scan - [address] [phone] Night sweats Discharge Disposition: Home or Self Care 08/23/2025 9:41 AM EST - 08/23/2025 11:59 PM EST Hospital Encounter CT Scan - [address] [phone] Night sweats Discharge Disposition: Home or Self Care 08/23/2025 Results Follow-Up Adult Medicine [address] [phone] Radha Carroll PA 08/22/2025 2:30 PM EST Office Visit Adult [address] [phone] Radha Carroll PA Encounter for staple removal (Primary Dx); Laceration of scalp, subsequent encounter; Skin tear of left elbow without complication, subsequent encounter; Skin tear of left lower leg without complication, subsequent encounter 08/22/2025 1:25 PM EST Lab Draw Station [address] Night sweats 08/18/2025 Telephone Adult [address] [phone] Adalberto Zepeda PA 08/11/2025 12:45 PM EDT Office Visit Adult [address] [phone] Radha Carroll PA Night sweats (Primary Dx); Extramammary Paget disease; Scrotal abscess 07/26/2025 8:00 AM EDT Consult [facility] [address] [place] [phone] Adalberto Avalos PA Blister of lower leg, right, initial encounter (Primary Dx); Skin ulcer of right lower leg, limited to breakdown of skin (CMS/HCC V24, CMS/HCC V28) from Last 3 Months Immunizations Immunization Administration Dates Next Due Influenza trivalent, 0.5mL ( Fluad) 65yo and older 07/05/2025 Pfizer SARS-CoV-2 COVID-19, mRNA, LNP-S, preservative free [...] arth ritis of multiple sites (CMS/HCC V24, [facility] V28) 11/27/2018 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 For example, child support officer or elderly care for an older adult? [...] Description 10/17/2025 9:00 AM EST Clinical Support [facility] [address] [place] [address] 11/30/2025 9:00 AM EST Office Visit Adult Medicine [address] [phone] Adalberto Zepeda PA [facility] [place] [phone] 06/01/2026 9:15 AM EDT Office Visit [facility] Hematology Oncology [address] [place] [address] Katja Lainez MD [address] [place] [address] Health Maintenance Due Date Last [...] Tissue On track( 025 9:15 AM EST) No Esha Zamudio RN Patient and Caregiver [...] Procedure Name Priority Date/Time Associated Diagnosis Comments MR ABDOMEN WO AND W CONTRAST Routine 09/21/2025 10:07 AM EST Liver lesion, right lobe DEBRIDEMENT Routine 08/29/2025 8:00 AM EST Skin [...] CT REPORT 08/16/[address] REPORT 08/16/2025 LIPID PANEL WITH REFLEX TO DIRECT LDL Routine 07/06/2025 7:36 AM EDT Tear of left biceps muscle, initial encounter Benign prostatic hyperplasia without lower urinary tract symptoms Bradycardia Essential tremor Parkinson's disease without dyskinesia, unspecified whether manifestations fluctuate (CMS/HCC V24, CMS/HCC V28) Essential (primary) hypertension Chronic venous hypertension (idiopathic) with inflammation of left lower extremity Renal cyst from Last 3 Months or Most Recently Relevant to Health Maintenance Results * MR Abdomen wo and w Contrast (09/21/2025 10:07 AM EST) Anatomical Region Laterality Modality Body Magnetic Resonan ce 10/04/2025 8:42 PM EST Impressions 10/04/2025 8:58 PM EST Cholelithiasis. Multiple hepatic cysts. No solid liver lesion identified. No MR abnormality is seen to correspond to the subtle 1.4 cm lesion of the right lobe of the liver suggested on the CT. Normal MRCP. -------- FINAL REPORT -------- Dictated By: Julieta Murguia Dictated Date: 10/04/2025 20:42 ET Assigned Physician: Julieta Murguia Reviewed and Electronically Signed By: Julieta Murguia Signed Date: 10/04/2025 20:58 ET Workstation ID: [id number] Transcribed By: Self Edit Transcribed Date: 10/04/2025 20:42 ET Narrative 10/04/2025 8:58 PM EST MRI ABDOMEN WITH AND WITHOUT CONTRAST; MRCP HISTORY: 1.4 cm subtle hypointense lesion in the right hepatic lobe does not have density of a cyst. Technique: Multiplanar and multi sequential MR imaging of the abdomen pre and postcontrast per department protocol. Routine noncontrast MRCP pulse sequences were also obtained. The patient received cc Dotarem IV. PRIOR: CT abdomen and pelvis 08/23/2025. FINDINGS: Liver: There are multiple rounded T2 hyperintense lesions in the liver, and these are consistent with cysts.. No intrahepatic biliary dilatation is seen. No calculi are seen within the extra- or intra-hepatic biliary system. Gallbladder: There are several gallstones. Bile ducts: Common bile duct measures 4 millimeters in diameter. Pancreatic duct has a normal course and caliber. Pancreas: Unremarkable. Spleen: Unremarkable. Adrenal glands: Unremarkable. Kidneys: Right kidney is unremarkable. There is a 1.0 x 1.3 x 1.3 cm parapelvic cyst of the left kidney. Stomach and visualized bowel: . Mesentery: Normal. Lymph nodes: . Vascular structures: Unremarkable. Free fluid: None. Abdominal wall: Unremarkable. Bones: There is mild curvature and degenerative change of the spine. There is a hemangioma of the T12 vertebral body. Lung bases: Clear. There is no abnormal enhancement. Procedure Note Julieta Murguia MD - 10/04/2025 MRI ABDOMEN WITH AND WITHOUT CONTRAST; MRCP HISTORY: 1.4 cm subtle hypointense lesion in the right hepatic lobe doesnot have density of a cyst. Technique: Multiplanar and multi sequential MR imaging of the abdomen preand postcontrast per department protocol. Routine noncontrast MRCP pulsesequences were also obtained. The patient received cc Dotarem IV. PRIOR: CT abdomen and pelvis 08/23/2025. FINDINGS: Liver: There are multiple rounded T2 hyperintense lesions in the liver,and these are consistent with cysts.. No intrahepatic biliary dilatationis seen. No calculi are seen within the extra- or intra-hepatic biliarysystem. Gallbladder: There are several gallstones. Bile ducts: Common bile duct measures 4 millimeters in diameter.Pancreatic duct has a normal course and caliber. Pancreas: Unremarkable. Spleen: Unremarkable. Adrenal glands: Unremarkable. Kidneys: Right kidney is unremarkable. There is a 1.0 x 1.3 x 1.3 cmparapelvic cyst of the left kidney. Stomach and visualized bowel: . Mesentery: Normal. Lymph nodes: . Vascular structures: Unremarkable. Free fluid: None. Abdominal wall: Unremarkable. Bones: There is mild curvature and degenerative change of the spine.There is a hemangioma of the T12 vertebral body. Lung bases: Clear. There is no abnormal enhancement. IMPRESSION: Cholelithiasis. Multiple hepatic cysts. No solid liver lesion identified.No MR abnormality is seen to correspond to the subtle 1.4 cm lesion of theright lobe of the liver suggested on the CT. Normal MRCP. -------- FINAL REPORT -------- Dictated By: Julieta Murguia Dictated Date: 10/04/2025 20:42 ET Assigned Physician: Julieta Murguia Reviewed and Electronically Signed By: Julieta Murguia Signed Date: 10/04/2025 20:58 ET Workstation ID: [id number] Transcribed By: Self Edit Transcribed Date: 10/04/2025 20:42 ET us Radha HOFFMAN IMG MRI PROCEDURES Final Result * Debridement Skin Tear Left;Posterior Shoulder (08/29/2025 [...] Response to treatment: Procedure was tolerated well Imelda Delatorre MD IN CLINIC/BEDSIDE ORDERAB LES Final Result * Debridement Skin Tear Left;Posterior Elbow (08/29/2025 8:00 AM EST) Imelda Viramontes MD [...] Signed Date: 08/26/2025 16:00 ET Workstation ID: [id number] Transcribed By: Self Edit Transcribed Date: 08/26/2025 [...] Signed Date: 08/26/2025 16:00 ET Workstation ID: [id number] Transcribed By: Self Edit Transcribed Date: 08/26/2025 15:59 ET us Radha Glen DOWLING US PROCEDURES Final Result * CT Abdomen [...] Signed Date: 08/24/2025 09:07 ET Workstation ID: [id number] Transcribed By: Self Edit Transcribed Date: 08/23/2025 [...] Signed Date: 08/24/2025 09:07 ET Workstation ID: [id number] Transcribed By: Self Edit Transcribed Date: 08/23/2025 22:41 ET us Radha Glen HOFFMAN IMG CT PROCEDURES Final Result * CT Chest [...] Signed Date: 08/24/2025 09:07 ET Workstation ID: [id number] Transcribed By: Self Edit Transcribed Date: 08/23/2025 [...] Signed Date: 08/24/2025 09:07 ET Workstation ID: [id number] Transcribed By: Self Edit Transcribed Date: 08/23/2025 22:41 ET us Radha lGen HOFFMAN IMG CT PROCEDURES Final Result * (ABNORMAL) Basic metabolic panel (08/22/2025 1:34 PM EST) Sodium 137 133 - 145 mmol/L LAB CHEMISTRY METHOD 08/22/2025 5:03 PM [facility] Potassium 4.4 3.5 - 5.5 mmol/L LAB CHEMISTRY METHOD 08/22/2025 5:03 PM [facility] Chloride 105 96 - 110 mmol/L LAB CHEMISTRY METHOD 08/22/2025 5:03 PM [facility] CO2 29 21 - 32 mmol/L LAB CHEMISTRY METHOD 08/22/2025 5:03 PM [facility] Anion Gap 3 3 - 11 LAB CHEMISTRY METHOD 08/22/2025 5:03 PM [facility] Glucose 97 70 - 100 mg/dL LAB CHEMISTRY METHOD 08/22/2025 5:03 PM [facility] BUN 24 5 - 25 mg/dL LAB CHEMISTRY METHOD 08/22/2025 5:03 PM [facility] Creatinine 1.33(H) 0.70 - 1.30 mg/dL LAB CHEMISTRY METHOD 08/22/2025 5:03 PM [facility] eGFR 54(L) >=60 mL/min/1. 73m2 LAB CHEMISTRY METHOD 08/22/2025 5:03 PM [facility] Comment:Calculation based on the Chronic Kidney Disease Epidemiology Collaboration (CKD-EPI) equation refit without adjustment for race. BUN/Creatinine Ratio 18.0 LAB CHEMISTRY METHOD 08/22/2025 5:03 PM [facility] Calcium 9.3 8.5 - 10.5 mg/dL LAB CHEMISTRY METHOD 08/22/2025 5:03 PM [facility] Blood Venous blood specimen / Unknown Venipuncture / Unknown 08/22/2025 1:34 PM EST 08/22/2025 1:34 PM EST us Radha Glen HOFFMAN LAB BLOOD ORDERABLES Final Resul t [facility] [address] [place] [address], * External Xray Report (08/16/2025) Only the most recent of2 resultswithin the time period is included. Anatomical Region Laterality Modality Radiographic Zuleyma ging us Provider [facility] XR PROCEDURES Final Result * External CT Report (08/16/2025) Only the most recent of4 resultswithin the time period is included. Anatomical Region Laterality Modality Computed Tomogra phy us Provider [facility] CT PROCEDURES Final Result * Lipid panel with reflex to direct LDL (07/06/2025 7:36 AM EDT) Cholesterol 136 0 - 200 mg/dL LAB CHEMISTRY METHOD [facility] Triglycerides 56 0 - 150 mg/dL LAB CHEMISTRY METHOD 07/06/2025 10:49 AM EDT [facility] HDL 67 >=40 mg/dL LAB CHEMISTRY METHOD 07/06/2025 10:49 AM EDT [facility] LDL Calculated 58 0 - 100 mg/dL LAB CHEMISTRY METHOD 07/06/2025 10:[address] [facility] Comment:Estimated LDL Calcul ated using equation: Total cholesterol - HDL cholesterol - (Triglycerides/5) VLDL Cholesterol Colby 11.2 mg/dL LAB CHEMISTRY METHOD 07/06/2025 10:49 AM EDT [facility] Non HDL Chol. (LDL+VLDL) 69 <145 mg/dL LAB CHEMISTRY METHOD 07/06/2025 10:[address] [facility] Chol/HDL Ratio 2.0 0.0 - 4.4 LAB CHEMISTRY METHOD 07/06/2025 10:[address] [facility] Blood Venous blood specimen / Unknown Venipuncture / Unknown 07/06/2025 7:36 AM EDT 07/06/2025 7:36 AM EDT Adalberto HOFFMAN LAB BLOOD ORDERABLES Poonam tracy Result [facility] [address] [place] [address], from Last 3 Months or Most Recently Relevant to Health Maintenance Additional Health Concerns Active Problems Noted Date [...] Documents on File Type Date Recorded 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
--- OUTSIDE RECORDS SUMMARY | 2025-10-07 08:36 | XMS_ITS ---
Author Organization [facility] Address [address] [place] [address] Phone Care Team Providers Care Lead Software Architect Name Role Phone Adalberto Zepeda Primary Care Provider +1 [phone] Teacher Of Family And Consumer Science Care Management Status:Closed (Closed) Start date:05/19/2025 Enrollment date:05/27/2025 Enrollment reason:Referred by Care Team End date:10/05/2025 Close reason:Completed program Overview Referral by Josephine - dayna patient - depressed, in asst living, connected Continued Care and Services Coordination
--- OUTSIDE RECORDS SUMMARY | 2025-10-07 08:36 | XMS_ITS | Encounter Summary ---
Author Organization [facility] Address [address] [place] [address] Care Team Providers Care Milk Bottling Machine Operator Name Role Phone Adalberto Zepeda Primary Care Provider +1 -[phone] Encounter Details Date Type Department Care Team (Late st Contact Info) Description 08/23/2025 Results Follow-Up Adult Medicine [facility] [address] [place], [place] [phone] Radha Carroll PA [address] [place], [place] Social History Tobacco Use Types Packs/Day [...] for your loved ones. For example, child welfare consultant or elderly care for an older adult? [...] Description 10/17/2025 9:00 AM EST Clinical Support [facility] [address] [place] [address] 11/30/2025 9:00 AM EST Office Visit Adult [address] [phone] Adalberto Zepeda PA [address] [place] [address] 06/01/2026 9:15 AM EDT Office Visit [facility] Hematology Oncology [address] [place] [address] Katja Lainez MD [address] [place] [address] documented as of this encounter [...] documented as of this encounter Care Teams Milk Bottling Machine Operator Relationship Specialty Start Date End Date Adalberto Zepeda PA [address] [place] [phone] PCP - General Internal Medicine 08/18/24 documented as of this encounter
--- OUTSIDE RECORDS SUMMARY | 2025-10-07 08:36 | XMS_ITS | Encounter Summary ---
Author Organization [facility] Address [address] [place] [address] Care Team Providers Care Fire Supervisor Name Role Phone Adalberto Zepeda Primary Care Provider [phone] [phone] Reason for Referral * Imaging (Routine) - Closed Specialty Diagnoses / Procedures Referred By Contac t Referred To Contact Radiology Diagnoses Liver lesion, right lobe Procedures MR Abdomen wo and w Contrast Radha Carroll PA [address] [place] [address] Phone: tel: fax: [address] Phone: tel: Referral ID Status Reason Start Date Expiration Date Visits Re quested Visits Authorized [id number] Closed 08/26/2025 08/26/2026 1 1 * Imaging (Routine) - Pending Review Specialty Diagnoses / Procedures Referred By Contac t Referred To Contact Radiology Diagnoses Right lower lobe pulmonary nodule Procedures CT Chest wo Contrast Radha Carroll PA [address] [place] [address] Phone: tel: fax: [address] Phone: tel: Referral ID Status Reason Start Date Expiration Date V isits Requested Visits Authorized [id number] Pending Review 08/26/2025 08/26/2026 1 1 Encounter Details Date Type Department Care Team (Late st Contact Info) Description 08/24/2025 Results Follow-Up Adult [address] [address] Adalberto Zepeda PA [address] [place] [phone] Social History Tobacco Use Types Packs/Day [...] your loved ones. For example, child care teacher or elderly care for an older [...] Description 10/17/2025 9:00 AM EST Clinical Support [facility] [address] [place] [phone] 11/30/2025 9:00 AM EST Office Visit Adult Medicine [address] [phone] Adalberto Zepeda, YASMIN [address] [place] [phone] 06/01/2026 9:15 AM EDT Office Visit [facility] Hematology Oncology [address] [place] [phone] Katja Lainez MD [address] [place] [phone] Scheduled Orders Name Type Priority Associated Diagnoses Orde r Schedule CT Chest wo Contrast Imaging Routine Right lower lobe pulmonary nodule Expected: 08/26/2026, Expires: 08/26/2026 documented as of this encounter [...] Messina RN documented as of this encounter Results * MR Abdomen wo and w [...] Signed Date: 10/04/2025 20:58 ET Workstation ID: [id number] Transcribed By: Self Edit Transcribed Date: 10/04/2025 [...] Signed Date: 10/04/2025 20:58 ET Workstation ID: [id number] Transcribed By: Self Edit Transcribed Date: 10/04/2025 20:42 ET us Radha Glen DOWLING MRI PROCEDURES Final Result documented in this encounter Visit Diagnoses Diagnosis Liver lesion, right lobe- Primary Other specified disorders of liver Right lower lobe pulmonary nodule Liver lesion, right lobe Other specified disorders of liver documented in this encounter Additional Health Concerns [...] documented as of this encounter Care Teams Fire Supervisor Relationship Specialty Start Date End Date Adalberto Zepeda PA [address] [place] [address] PCP - General Internal Medicine 08/18/24 documented as of this encounter
--- OUTSIDE RECORDS SUMMARY | 2025-10-07 08:36 | XMS_ITS ---
Care Plan Created on: October 07, 2025 Caleb Martínez : 1945 Sex: Male Author Organization [facility] Address [address] [place] [address] Phone Care Team Providers Care Tape Sewing Machine Operator Name Role Phone Adalberto Zepeda Primary Care Provider [phone] [phone] Active Problems Problem Noted Date Diagnosed Date [...] omised skin integrity. No Esha Zamudio RN Interventions Care Plan Interventions Intervention Entry Date Outcome Provide caregiver with wound care procedure information [...]
--- NOTE | 2025-10-07 08:38 | A.OFFVIS_ITS ---
Vital Signs 10/07/25 08:41 Height 5 ft 8 in Weight 176 lb 9.444 oz BMI 26.8 BP 116/62 Blood Pressure Location Lt brachial Position Sitting Pulse 57 Pulse Source Pulse Oximeter Pulse Oximetry (%) 99 Oxygen Delivery Method Room Air Intake Visit Reasons: f/u RA 4months Intake Note: Patient presents today for RA follow up and test results. Concessionist Required: No Information Interpreted: non-clinical & clinical Accompanied by: Self / Same As Patient Allergies sertraline Allergy (Intermediate, Verified 10/07/25 08:41) nausea,dizziness acetaminophen (From Percocet) Allergy (Unknown, Verified 10/07/25 08:41) unknown amoxicillin Allergy (Unknown, Verified 10/07/25 08:41) unknown erythromycin base Allergy (Unknown, Verified 10/07/25 08:41) unknown minocycline Allergy (Unknown, Verified 10/07/25 08:41) unknown oxycodone (From Percocet) Allergy (Unknown, Verified 10/07/25 08:41) unknown polymyxinb tmp Allergy (Intermediate, Uncoded 04/26/25 11:11) swelling, rash HPI Comments Details: Patient is an 79-year-old male with hypertension complicated by CKD stage 3, hyperlipidemia complicated by CAD, Parkinson's disease, nonrheumatic aortic stenosis, osteoarthritis of bilateral hands and sero positive rheumatoid arthritis here today for follow up Interval History: Patient last seen 06/03/25 with me - On Enbrel 50mg SC weekly, Methotrexate 10mg PO and Leucovorin 10mg - Reports some improvement in joint pain but still with sx - ( 58 years) now in [facility], an assisted living facilities due to advanced alzheimer's - Enbrel changed to Humira due to persistent synovitis Today - On Humira 40mg SC every 2 weeks, Methotrexate 10mg PO and Leucovorin 10mg - Started the Humira - No side effects - Doing well on the Humira, states it has been effective - 's dementia is worsening, still has not gotten accustomed to living alone - Has fallen twice, no broken bones - Complaining of bilateral foot pain and swelling Rheumatologic History: Rheumatoid arthritis RF - CCP + dx 2017 (low titer +CCP negative on repeat) Methotrexate started 2018 reduced from 15 to 10 mg due to cytopenias & CKD HCQ added 01/2024 DC 05/2024 ineffective Enbrel added 01/2025 due to persistent synovitis - 05/2025 (not fully effective) Humira 05/2025 Initial history: This is a 76-year-old male with a complex past medical history including rheumatoid arthritis RF negative, CCP is positive used to see Dr. Mishra who presents for evaluation of rheumatoid arthritis. The condition was diagnosed in 2018 and since then he has been on methotrexate 6 tabs weekly plus folic acid with better control of his RA symptoms. He has not been on methotrexate since November of 2021 as he could not get a prescription. He continues to have pain in both thumbs as well as his fingers. 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 He receives bilateral thumb intra-articular steroid injections every 3 months which gave him about 1 month relief, last injection was 2 months ago. He denies any other joint pain or swelling. About 2 years ago he developed right foot drop, also developed tremors and was diagnosed with Parkinson's by Neurology. For his footdrop he went to physical therapy and was prescribed a brace. The brace helps. But his footdrop has not improved. Osteoporosis DEXA shows a T-score-3.0 total left femur. Patient has been getting intra- articular steroid injections for his hand osteoarthritis almost every 3 months for years. This might be a contributing factor. Bilateral hand OA Gets bilateral 1st CMC intra-articular steroid injections by Orthopedics every 3 months. Current Rheumatology Medication(s): Methotrexate 10 mg weekly Leucovorin 10 mg weekly Alendronate 70 mg weekly Humira 40mg SC every 2 weeks [facility] Medical History (Updated 08/17/25 @ 00:00 by Deloris Sy) Neck pain 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 Gout Footdrop BPH (benign prostatic hyperplasia) Hypertension Diverticulosis Thrombocytopenia Acid reflux Basal cell carcinoma Cholelithiasis Nephrolithiasis PTSD (post-traumatic stress disorder) Parkinsons Osteoarthritis of hands, bilateral Chronic sinus bradycardia Restless leg Dyslipidemia Surgical History S/P cardiac cath S/P trigger finger release Hx of endoscopy S/P TURP Hx of tonsillectomy Hx of lithotripsy Hx of colonoscopy Family History Mother Arthritis Social History Household Members: Spouse Housing: House Do you presently have visiting nurse or other home services: No Alcohol intake: never Patient Tobacco Use Status: Never used Tobacco e-Cigarette/Vaping Use: Never Used service: Yes Current occupational status: retired 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 Review of Systems Narrative Review of Systems Constitutional: Denies fever, chills, weight loss ENT: Denies vision changes, eye pain or eye redness, dental caries, dry mouth GI: Denies nausea, vomiting, diarrhea, abdominal pain, change in BM Pulm: Denies SOB, [place], hemoptysis, wheezing Cards: Denies chest pain, palpitations Skin: Denies Raynaud's, rash, nail changes, photosensitivity, [employer] DESIGNER: Denies headaches, weakness, paresthesias, recurrent falls MSK: as per HPI All other systems reviewed and are unremarkable except noted above Physical Exam Exam Exam: Vital signs reviewed Physical Examination CONSTITUITIONAL Patient alert and cooperative. Well appearing and in no apparent painful distress MSK Hands * Right Hand: Able to make a fist. No swelling. TTP of the 2nd and 3rd MCPs * Left Hand: Able to make a fist. No swelling. TTP of the 2nd and 3rd MCPs * Herbedens nodes noted bilaterally Wrists * Right Wrist: Full ROM to flexion and extension. No swelling or TTP * Left Wrist: Full ROM to flexion and extension. No swelling or TTP Elbows * Right Elbow: Full ROM. No swelling or TTP. No TTP of the medial epicondyle. No TTP of the lateral epicondyle * Left Elbow: Full ROM. No swelling or TTP. No TTP of the medial epicondyle. No TTP of the lateral epicondyle Shoulders * Right shoulder: Decreased ROM 2/2 pain. No swelling noted. No TTP of the AC joint. TTP of the subacromial bursa. No TTP of the posterior shoulder * Left shoulder: Decreased ROM 2/2 pain. No swelling noted. No TTP of the AC joint. TTP of the subacromial bursa. No TTP of the posterior shoulder Knees * Right knee: Full ROM. No swelling noted. No TTP of the knee joint line. No TTP of pes anserine bursa * Left knee: Full ROM. No swelling noted. No TTP of the knee joint line. No TTP of pes anserine bursa. Ankles * Right ankle: Good ankle dorsiflexion and plantar flexion. No swelling. No TTP of the ankle joint * Left ankle: Good ankle dorsiflexion and plantar flexion. No swelling. No TTP of the ankle joint Feet * Right foot: Positive squeeze test * Left foot: Positive squeeze test * No warmth or redness noted Bilateral pitting edema up to the tibial tuberosity Tender points? * No tenderness to palpation of the bilateral trapezius, supraspinatus, anterior costochondral junctions, bilateral suboccipital muscle insertions Results Reviewed Results Reviewed: Laboratory Tests 05/26/25 08/16/25 10/04/25 09:09 02:21 08:00 WBC 6.1 RBC 3.29 L Hgb 10.4 L Hct 33.8 L MCV 102.7 H Plt Count 179 ESR 20 Sodium 144 Potassium 4.1 Chloride 110 H Carbon Dioxide 26 BUN 18 H Creatinine 1.18 Estimated GFR 48 59 AST 28 ALT 21 C-Reactive Protein < 0.10 25-OH Vitamin D Total 30.5 Laboratory Tests 05/26/25 09:09 Hepatitis A IgM Ab Nonreactive Hep Bs Antigen Negative Hep Bs Antibody NONREACTIVE Hep B Core Total Ab Nonreactive Hepatitis C Ab (EIA) Nonreactive TB Test (T-Spot) Com Negative DEXA 10/2024 FINDINGS: The bone mineral density of the lumbar spine is 1.186 with a T-score of -0.3, and a Z-score of 0.8. This represents a BMD change of -5.7% compared to the prior exam. This is statistically significant. The bone mineral density of the left total hip is 0.702 with a T-score of -2.8, and a Z-score of -1.4. This represents BMD change of 5.2% compared to the prior exam. This is statistically significant. The bone mineral density of the left femoral neck is 0.753 with a T-score of -2.4, and a Z-score of -0.7. This represents BMD change of 3.3% compared to the prior exam. ECHO 06/2025 Conclusions: - 1. Mildly reduced LV ejection fraction 45-50% with impaired relaxation filling pattern 2. Moderately dilated left atrium 3. Moderate aortic stenosis 4. Normal RV systolic pressure 5. Upper limits of normal ascending aortic size 6. No gross pericardial effusion Assessment & Plan Assessment & Plan (1) Rheumatoid arthritis involving both hands with negative rheumatoid factor: Comment: dx 2018 (low titer +CCP negative on repeat) Methotrexate started 2017 reduced from 15 to 10 mg 12/12 due to cytopenias & CKD HCQ added 01/2024 DC 05/2024 ineffective Enbrel 01/2025 - 05/2025. Ineffective Code(s): M06.041 - Rheumatoid arthritis without rheumatoid factor, right hand; M06.042 - Rheumatoid arthritis without rheumatoid factor, left hand Category: Medical Plan: #Seronegative RA Patient is an 79-year-old male with seronegative rheumatoid arthritis here today for follow up. Tender joint count improved but still persists Will change methotrexate to leflunomide Prednisone taper Compression stockings Plan - Stop methotrexate - Start leflunomide 10mg daily - Humira 40mg every 2 weeks - Prednisone Take 15mg for 7 days then 10mg for 7 days then 5mg for 7 days then stop - XR Bilateral feet - RTC 4 months - Labs before visit: CBC, CMP, ESR, CRP (2) Osteoarthritis of hands, bilateral: Code(s): M19.041 - Primary osteoarthritis, right hand; M19.042 - Primary osteoarthritis, left hand Category: Medical Qualifiers: Osteoarthritis type: primary Qualified Code(s): M19.041 - Primary osteoarthritis, right hand; M19.042 - Primary osteoarthritis, left hand Plan: #Bilateral Hand OA Patient with bilateral hand OA particularly 1st CMC joint and PIPs. Continues to get injections every 3 months from Orthopedics. Recommend to continue topical diclofenac 4 times a day (3) Swelling of both lower extremities: Code(s): M79.89 - Other specified soft tissue disorders Plan: #Bilateral LE swelling Likely related to poor circulation Recommended compression socks (4) Osteoporosis: Comment: DEXA 10/2024: AP Spine -0.3, Left femur neck -2.4, Left femur total -2.8 DEXA 09/2022: AP Spine -0.4, Left femur neck -2.6, Left femur total -3.0 Alendronate since 2021 Code(s): M81.0 - Age-related osteoporosis without current pathological fracture Category: Medical Qualifiers: Osteoporosis type: age-related Presence of current pathological fracture: without current pathological fracture Qualified Code(s): M81.0 - Age-related osteoporosis without current pathological fracture Plan: #Osteoporosis Patient with osteoporosis and repeat DEXA done October 2024 overall stable. We will continue with alendronate Plan - Continue alendronate 70mg weekly - Consider drug holiday in 2026 - Vitamin D at next blood draw (5) Pseudogout: Code(s): M11.20 - Other chondrocalcinosis, unspecified site Category: Medical Plan: #Non crystal proven pseudo gout Patient with non crystal proven pseudogout. No flares since the last visit. 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 Plan: #Long-term Use of TNF Inhibitors: Humira Discussed with the patient the benefits and risks of TNF inhibitors for the management of the rheumatic condition Benefits include reduce pain, maintenance of remission and reduction of flares as well as progression of the disease Risks include injection sites/infusion reactions, serious infections (such as bacterial infections, opportunistic infections), malignancy, delaminating syndromes, autoimmune phenomena, CHF exacerbations, palmar plantar psoriasis and cytopenias Recommended rotating injection sites, and holding medication during and for up to 1 week after resolution of a febrile illness or open skin wound (7) Encounter for monitoring leflunomide therapy: Code(s): Z51.81 - Encounter for therapeutic drug level monitoring; 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 Has a very long half-life. Needs cholestyramine washout if there is desire for Initiation: CBC, BMP, LFTs, hepatitis-B and C serologies every 2-4 weeks for 3 months Monitoring: CBC, BMP, LFTs, hepatitis B and C serologies Plan I spent 30 minutes reviewing the record and labs, taking a history, examining the patient, discussing the treatment plan, ordering diagnostic work up and documenting in the medical record Orders: Orders Complete Blood Count Auto Diff 4 Months Z79.899 - Other shelter (current) drug therapy C Reactive Protein 4 Months Z79.899 - Other shelter (current) drug therapy Erythrocyte Sedimentation Rate 4 Months Z79.899 - Other front office spec (current) drug therapy XR Foot Vincent 3V Today M79.671 - Pain in right foot, M79.672 - Pain in left foot Comprehensive Met. Panel 4 Months Z79.89 - Other front office spec (current) drug therapy Medications: New leflunomide 10 mg PO DAILY 90 tabs 1RF M06.041 - Rheumatoid arthritis without rheumatoid factor, right hand, M06.042 - Rheumatoid arthritis without rheumatoid factor, left hand [Compression socks] Wear during the day 1 ea 0RF M79.89 - Other specified soft tissue disorders prednisone 15 mg orally for 7 days; 10mg orally for 7 days; 5mg orally for 7 days 42 tabs 0RF M06.041 - Rheumatoid arthritis without rheumatoid factor, right hand, M06.042 - Rheumatoid arthritis without rheumatoid factor, left hand Refilled adalimumab (Humira(CF) Pen) 40 mg (0.4 mL) subcut Q2W 2 ea 5RF M06.041 - Rheumatoid arthritis without rheumatoid factor, right hand, M06.042 - Rheumatoid arthritis without rheumatoid factor, left hand alendronate 70 mg PO QWEEK 12 tabs 1RF Discontinued methotrexate sodium Discontinued Reason: Doctor's Order 10 mg (4 x 2.5 mg) PO QWEEK 90 days 52 tabs 1RF M06.041 - Rheumatoid arthritis without rheumatoid factor, right hand, M06.042 - Rheumatoid arthritis without rheumatoid factor, left hand Coding Level of Care Code Est Pt Level 4 (57664) Add On Problem Visit Only Diagnoses Rheumatoid arthritis involving both hands with negative rheumatoid factor M06.041; M06.042 Primary osteoarthritis of both hands M19.041; M19.042 Osteoarthritis type: primary Swelling of both lower extremities M79.89 Age-related osteoporosis without current pathological fracture M81.0 Osteoporosis type: age-related Presence of current pathological fracture: without current pathological fracture Pseudogout M11.20 Encounter for monitoring of adalimumab therapy Z51.81; Z79.620 Encounter for monitoring leflunomide therapy Z51.81; Z79.69
[2025-10-07 08:41] VITALS: BP 116/62; PULSE 57; O2SAT 99; BMI 26.8
== END 2025-10-07 09:22 | disposition home or self-care (01) ==
LOC: HO.RHES 08:29
PROVIDERS: PCP Physician Assistant Medical; Visit Provider Student in an Organized Health Care Education/Training Program
DX: M06.041 Rheumatoid arthritis without rheumatoid factor, right hand (principal); M06.042 Rheumatoid arthritis without rheumatoid factor, left hand; M19.041 Primary osteoarthritis, right hand; M19.042 Primary osteoarthritis, left hand; M79.89 Other specified soft tissue disorders; M81.0 Age-related osteoporosis without current pathological fracture; M11.20 Other chondrocalcinosis, unspecified site; Z51.81 Encounter for therapeutic drug level monitoring; Z79.620 Long term (current) use of immunosuppressive biologic; Z79.69 Long term (current) use of other immunomodulators and immunosuppressants
CPT/HCPCS: 99214

== ENCOUNTER 2025-10-07 08:28 | Outpatient (REF) | payer BC, SELFPAY ==
--- NOTE | ~2025-10-07 | XR_ITS ---
EXAMINATION: XR FOOT 3 OR MORE VIEWS BILATERAL HISTORY: M79.671 - Pain in right foot COMPARISON: Comparison is made with the prior examination of the left foot dated 07/01/2024. FINDINGS: Six views of the bilateral feet are submitted. Osseous mineralization is normal. There is no fracture or dislocation. There is mild degenerative change of the DIP joints, PIP joints, and intertarsal joints. There is small plantar calcaneal spurs. There are vascular calcifications. XR/XR Foot Vincent 3V IMPRESSION: Degenerative changes of the bilateral feet described. Electronically signed by: Dwight Gtz MD 10/07/2025 10:44 AM HANS
== END 2025-10-07 08:29 | disposition home or self-care (01) ==
LOC: HO.XRAY 08:28
PROVIDERS: PCP Physician Assistant Medical; Visit Provider Student in an Organized Health Care Education/Training Program
DX: M06.041 Rheumatoid arthritis without rheumatoid factor, right hand (principal); M06.042 Rheumatoid arthritis without rheumatoid factor, left hand; M19.041 Primary osteoarthritis, right hand; M19.042 Primary osteoarthritis, left hand; M81.0 Age-related osteoporosis without current pathological fracture; M11.20 Other chondrocalcinosis, unspecified site; Z51.81 Encounter for therapeutic drug level monitoring; Z79.620 Long term (current) use of immunosuppressive biologic; Z79.69 Long term (current) use of other immunomodulators and immunosuppressants; Z79.83 Long term (current) use of bisphosphonates
CPT/HCPCS: 73630

== ENCOUNTER → 2025-10-07 10:04 | Outpatient (BNV) | payer BC, SELFPAY | PROVIDERS: PCP Physician Assistant Medical; Visit Provider Radiology Diagnostic Radiology | DX: M19.071 Primary osteoarthritis, right ankle and foot (principal); M19.072 Primary osteoarthritis, left ankle and foot | CPT/HCPCS: 73630 ==